=== PATIENT | female | born 1960 | race Two or more races ===

== ENCOUNTER 2020-04-05 23:46 | Emergency (ER) | payer OTHER, SELFPAY ==
[2020-04-06 00:11] VITALS: BP 132/77; PULSE 77; RESP 18; TEMP 36.8; O2SAT 99; BMI 26.4
--- NOTE | 2020-04-06 00:21 | XR_ITS ---
EXAMINATION: XR CHEST CLINICAL INFORMATION: Travel COMPARISON: 08/29/2019 TECHNIQUE: Frontal view of the chest was obtained. FINDINGS: Lung volumes are symmetric. No focal consolidation is seen. No evidence of pneumothorax, pleural effusion, or pulmonary edema. The cardiomediastinal contour is unremarkable. No acute osseous findings are seen. XR/XR chest 1V IMPRESSION: No acute cardiopulmonary findings.
--- NOTE | 2020-04-06 00:21 | ECG_ITS ---
Test Reason : CHEST PAIN Blood Pressure : / mmHG Vent. Rate : 075 BPM Atrial Rate : 075 BPM P-R Int : 156 ms QRS Dur : 066 ms QT Int : 368 ms P-R-T Axes : 020 -05 028 degrees QTc Int : 410 ms Normal sinus rhythm Minimal voltage criteria for LVH, may be normal variant Borderline ECG When compared with ECG of 30-OCT-2017 18:45, No significant change was found Referred By: Nicole Leal Electronically Signed By:ABEBA QUINONES MD
[2020-04-06 00:37] LABS: MANUAL DIFF FLAG NO
[2020-04-06 00:41] LABS: Basophils Absolute Auto 0.1 X10*3/uL (0.0-0.2); Basophils Percent Auto 0.7 % (0-2); Eosinophils Absolute Auto 0.2 X10*3/uL (0.0-0.4); Eosinophils Percent Auto 3.2 % (0-4); Hematocrit 31.6 % (37-47); Hemoglobin 10.2 g/dl (12.0-16.0); Imm Gran Abs Auto 0.25 X10*3/uL (0.00-0.03); Imm Gran Pct Auto 3.7 % (0.0-0.4); Lymphocytes Absolute Auto 2.2 X10*3/uL (1.2-4.9); Mean Corpuscular HGB Conc 32.3 g/dl (31.0-35.0); Mean Corpuscular Hemoglobin 29.7 pg (27.0-33.0); Mean Corpuscular Volume 92.1 fL (80-98); Mean Platelet Volume 8.9 fL (9.4-12.3); Monocytes Absolute Auto 0.6 X10*3/uL (0.1-1.2); Monocytes Percent Auto 9.3 % (2-11); Neutrophils Absolute Auto 3.5 X10*3/uL (2.0-8.3); Neutrophils Percent Auto 51.1 % (45-73); Platelet Count 294 X10*3/uL (160-400); Red Blood Count 3.43 X10*6/uL (4.20-5.50); Red Cell Distribution Width 12.7 % (11.0-16.0); White Blood Count 6.8 X10*3/uL (4.8-10.8)
--- NOTE | 2020-04-06 00:45 | ED_ITS ---
HPI - Chest Pain General Chief Complaint: Chest Pain Stated Complaint: chest pain Time Seen by Provider: 04/06/20 00:42 History of Present Illness HPI narrative: patient is a 59-year-old female presents today with having some chest pain. The pain is mid chest in nature. nonradiating. No fever no chills no cough no congestion or upper respiratory symptoms. Positive history of high cholesterol. No history of diabetes. No history of KS. No coughing or congestion or upper respiratory symptoms. Never had a heart attack. Positive history of reflux. The pain is been ongoing for about 5 days. It has been is constant. It is worse with lying down. Patient is already on Nexium 40 mg per day. Denies any change in diet. Is not worse with movement. It is not worse with deep breath. Does not have any leg swelling. No history of blood clots in the past. Related Data Previous Rx's Medication Instructions Recorded esomeprazole magnesium 40 mg 40 mg PO DAILY #30 cap 03/19/20 capsule,delayed release Allergies Allergy/AdvReac Type Severity Reaction Status Date / Time octopus Allergy Intermediate HIVES Verified 04/06/20 00:07 pregabalin [From Lyrica] Allergy Intermediate LETHARGY, Verified 04/06/20 00:07 dizziness dicyclomine Allergy Unknown stomach Verified 04/06/20 00:07 upset Candie-PEG Allergy Unknown rash Verified 04/06/20 00:07 nortriptyline [Pamelor] Allergy Unknown liver Verified 04/06/20 00:07 celecoxib [From Celebrex] AdvReac Intermediate PROBLEMS Verified 04/06/20 00:07 WITH THE LIVER oxycodone [From Percocet] AdvReac Mild LETHARGY Verified 04/06/20 00:07 acetaminophen [Percocet] AdvReac Unknown stomach Verified 04/06/20 00:07 upset MANDARIN ORANGES Allergy Severe LIP Uncoded 04/06/20 00:07 SWELLING, HIVES CRISPEG Allergy Intermediate RASH Uncoded 04/06/20 00:07 PARMELEX Allergy Intermediate PROBLEMS Uncoded 02/28/20 16:31 WITH THE LIVER Cassava, Spinach, Liver Meat Allergy Unknown vomiting Uncoded 02/08/20 00:00 Crestor Allergy Unknown Hives Uncoded 04/06/20 00:07 mandarin oranges Allergy Unknown liver Uncoded 12/31/19 00:00 Octopus Allergy Unknown redness, Uncoded 02/08/20 00:00 rash octopus Allergy Unknown liver Uncoded 12/31/19 00:00 Oranges, Mandarin, Tangerines Allergy Unknown rash, Uncoded 02/08/20 00:00 hives and swelling Review of Systems Review of Systems: Constitutional: No Weight loss, No Fever, No Chills, No Night Sweats, No Fatigue, No Malaise ENT/Mouth: No Hearing loss, No Ear Pain, No Nasal Congestion, No Sinus Pain, No Hoarseness, No sore throat, No Rhinorrhea, No Swallowing Difficulty Eyes: No Eye Pain, No Swelling, No Redness, No Foreign Body, No Discharge, No Vision Changes Cardiovascular: Positive chest pain, no shortness of breath no diaphoresis. Respiratory: No Cough, No Sputum, No Wheezing, No Smoke Exposure, No Dyspnea Gastrointestinal: No Nausea, No Vomiting, No Diarrhea, No Constipation, No abdominal Pain, No Hematochezia, No Melena Genitourinary: no irregular bleeding, No Dysuria, No Urinary Frequency, No Hematuria, No Urinary Incontinence, No Urgency, No Flank Pain, No Urinary Flow Changes, No Hesitancy Musculoskeletal: No joint pain, No Myalgias, No Joint Swelling Skin: No Skin Lesions, No rash Neuro: No Weakness, No Numbness, No Paresthesias, No Loss of Consciousness, No Dizziness, No Headache Psych: No Anxiety/Panic, No Depression, No SI/HI/AH/VH, No Social Issues, Heme/Lymph: No Bruising, No Bleeding,No Lymphadenopathy Endocrine: No Polyuria, No Polydipsia, No Temperature Intolerance Yes all other systems are reviewed and are negative [facility] Social History Social History Alcohol intake: never Smoked in Last 30 Days: No Use of substances other than those prescribed or required for medical reasons: No Advance Directives: No Advance Directives Information Provided: No Physical Exam Vital Signs: Vital Signs: Vital Signs Temp Pulse Resp BP Pulse Ox 04/06/20 03:18 18 04/06/20 03:14 98.3 F 77 18 128/67 99 04/06/20 01:51 98.3 F 69 18 124/71 99 04/06/20 00:11 98.3 F 77 18 132/77 99 Body Mass Index 26.4 Appearance: Alert. Oriented X3. No acute distress. Eyes: Pupils equal, round and reactive to light. ENT: Pharynx normal. Neck: Normal inspection. Neck supple. No lymph nodes noted. No crepitus CVS: Normal heart rate and rhythm. Pulses normal. Normal S1 and S2 Respiratory: No respiratory distress. Breath sounds normal. No Wheezing. No rales Abdomen: Soft and nontender. No rigidity. No distention. good BS x4 Skin: Skin warm and dry. Normal skin color. Normal skin turgor. Extremities: No lower extremity edema. Neurovascular intact to all extremities. No Lacerations. No Rash Neuro: Oriented X 3. No motor deficit. No sensory deficit. Moving all extermities. No slurred speech MDM - Chest Pain MDM Narrative Medical decision making narrative: Two sets of cardiac enzymes were negative. Patient's pain atypical. EKG appears normal. There is no evidence for ACS. Patient's heart score is less than 3. Will discharge patient home close follow- up on an outpatient basis. Differential Diagnosis Differential diagnosis: Likely fracture of rib, pneumothorax, stable angina, unstable angina pectoris, atypical chest pain, st elevation myocardial infarct ion, costochondritis and chest pain Medical Records Data Attestation: I reviewed the patient's medical records. Lab Data Attestation: I reviewed the patient's lab results. Result diagrams: 04/06/20 00:28 04/06/20 00:28 Labs: Lab Results 04/06/20 04/06/20 04/06/20 Range/Units 00:28 00:28 00:28 WBC 6.8 (4.8-10.8) X10*3/uL RBC 3.43 L (4.20-5.50) X10*6/uL Hgb 10.2 L (12.0-16.0) g/dl Hct 31.6 L (37-47) % MCV 92.1 (80-98) fL MCH 29.7 (27.0-33.0) pg MCHC 32.3 (31.0-35.0) g/dl RDW 12.7 (11.0-16.0) % Plt Count 294 (160-400) X10*3/uL MPV 8.9 L (9.4-12.3) fL Immature Gran % (Auto) 3.7 H (0.0-0.4) % Neut % (Auto) 51.1 (45-73) % Lymph % (Auto) 32.0 (20-40) % [place] % (Auto) 9.3 (2-11) % Eos % (Auto) 3.2 (0-4) % Baso % (Auto) 0.7 (0-2) % Lymph # (Auto) 2.2 (1.2-4.9) X10*3/uL [place] # (Auto) 0.6 (0.1-1.2) X10*3/uL Eos # (Auto) 0.2 (0.0-0.4) X10*3/uL Baso # (Auto) 0.1 (0.0-0.2) X10*3/uL Abs Immat Gran (auto) 0.25 H (0.00-0.03) X10*3/uL Absolute Neuts (auto) 3.5 (2.0-8.3) X10*3/uL Absolute Nucleated RBC 0.000 (0.0-0.012) X10*3/uL Nucleated RBC % (auto) 0.0 (0.0-0.2) /100WBC Hold Blue Top SEE NOTE Sodium 140 (135-145) mmol/L Potassium 4.0 (3.3-5.1) mmol/l Chloride 106 (96-108) mmol/L Carbon Dioxide 25 (22-29) mmol/L Anion Gap 13 (12-20) BUN 18 H (9-16) mg/dL Creatinine 0.64 (0.5-1.4) mg/dL Estim Creat Clear Calc 89.6 Estimated GFR > 60 Random Glucose 121 H (60-115) mg/dL Calcium 8.6 (8.4-10.2) mg/dL Total Bilirubin 0.2 (0.0-1.0) mg/dL Direct Bilirubin < 0.2 (0.0-0.5) mg/dL AST 29 (5-31) U/L ALT 23 (0-31) U/L Alkaline Phosphatase 118 H (39-117) U/L Troponin I High Sens (<3.5-17.0) ng/L Total Protein 6.6 (6.5-8.0) g/dL Albumin 4.1 (3.5-5.0) g/dL Lipase 19 (8-78) U/L Urine Color Urine Appearance Urine pH (5.0-8.0) Ur Specific [place] (1.005-1.025) Urine Protein (NEG-TRACE) MG/DL Urine Glucose (UA) (NEG) MG/DL Urine Ketones (NEG) MG/DL Urine Blood (NEG) Urine Nitrite (NEG) Ur Leukocyte Esterase (NEG) Urine RBC (0) /HPF Urine WBC (0-4) /HPF Ur Squamous Epith Cells /LPF Urine Bacteria /LPF 04/06/20 04/06/20 04/06/20 Range/Units 00:28 01:09 03:08 WBC (4.8-10.8) X10*3/uL RBC (4.20-5.50) X10*6/uL Hgb (12.0-16.0) g/dl Hct (37-47) % MCV (80-98) fL MCH (27.0-33.0) pg MCHC (31.0-35.0) g/dl RDW (11.0-16.0) % Plt Count (160-400) X10*3/uL MPV (9.4-12.3) fL Immature Gran % (Auto) (0.0-0.4) % Neut % (Auto) (45-73) % Lymph % (Auto) (20-40) % [place] % (Auto) (2-11) % Eos % (Auto) (0-4) % Baso % (Auto) (0-2) % Lymph # (Auto) (1.2-4.9) X10*3/uL [place] # (Auto) (0.1-1.2) X10*3/uL Eos # (Auto) (0.0-0.4) X10*3/uL Baso # (Auto) (0.0-0.2) X10*3/uL Abs Immat Gran (auto) (0.00-0.03) X10*3/uL Absolute Neuts (auto) (2.0-8.3) X10*3/uL Absolute Nucleated RBC (0.0-0.012) X10*3/uL Nucleated RBC % (auto) (0.0-0.2) /100WBC Hold Blue Top Sodium (135-145) mmol/L Potassium (3.3-5.1) mmol/l Chloride (96-108) mmol/L Carbon Dioxide (22-29) mmol/L Anion Gap (12-20) BUN (9-16) mg/dL Creatinine (0.5-1.4) mg/dL Estim Creat Clear Calc Estimated GFR Random Glucose (60-115) mg/dL Calcium (8.4-10.2) mg/dL Total Bilirubin (0.0-1.0) mg/dL Direct Bilirubin (0.0-0.5) mg/dL AST (5-31) U/L ALT (0-31) U/L Alkaline Phosphatase (39-117) U/L Troponin I High Sens < 3.5 < 3.5 (<3.5-17.0) ng/L Total Protein (6.5-8.0) g/dL Albumin (3.5-5.0) g/dL Lipase (8-78) U/L Urine Color YELLOW Urine Appearance CLEAR Urine pH 7.0 (5.0-8.0) Ur Specific [place] 1.010 (1.005-1.025) Urine Protein NEG (NEG-TRACE) MG/DL Urine Glucose (UA) NEG (NEG) MG/DL Urine Ketones NEG (NEG) MG/DL Urine Blood TRACE (NEG) Urine Nitrite NEG (NEG) Ur Leukocyte Esterase TRACE H (NEG) Urine RBC 1-4 (0) /HPF Urine WBC 1-4 (0-4) /HPF Ur Squamous Epith Cells 1+ /LPF Urine Bacteria 1+ /LPF ECG Data ECG #1: Interpretation: Sinus heart rate of 75 p.r. QRS QT within normal limits is no acute ST segment elevation noted. Discharge Plan Discharge Clinical Impression: Chest pain Patient Disposition: Home, Self-Care Instructions: Chest Pain (ED) Prescriptions: No Action esomeprazole magnesium 40 mg capsule,delayed release(DR/EC) 40 mg PO DAILY Qty: 30 RF: 3 Referrals: Julia Green MD [Primary Care Provider] - 2 days
[2020-04-06 01:13] LABS: Anion Gap 13 (12-20); Blood Urea Nitrogen 18 mg/dL (9-16); Calcium 8.6 mg/dL (8.4-10.2); Carbon Dioxide 25 mmol/L (22-29); Chloride 106 mmol/L (96-108); Creatinine Clr Calc Pharmacy 89.6; Estimated Glomerular Filt Rate > 60; Glucose Random 121 mg/dL (60-115); Sodium 140 mmol/L (135-145)
[2020-04-06 01:18] LABS: Troponin-I High Sensitivity < 3.5 ng/L (<3.5-17.0)
[2020-04-06 01:20] LABS: Glucose Urine UA NEG (NEG); Leukocyte Esterase Urine TRACE (NEG); Nitrite Urine NEG (NEG); Urine Blood TRACE (NEG); Urine Ketones NEG (NEG); Urine Protein NEG (NEG-TRACE)
[2020-04-06 01:21] LABS: Appearance Urine CLEAR; Color Urine YELLOW
[2020-04-06 01:28] LABS: Bacteria Urine 1+ /LPF; Squamous Epithelial Cell Urine 1+ /LPF
[2020-04-06 01:46] LABS: Alanine Aminotransferase 23 U/L (0-31); Albumin Level 4.1 g/dL (3.5-5.0); Alkaline Phosphatase 118 U/L (39-117); Aspartate Amino Transferase 29 U/L (5-31); Bilirubin Direct < 0.2 mg/dL (0.0-0.5); Bilirubin Total 0.2 mg/dL (0.0-1.0); Lipase 19 U/L (8-78); Total Protein 6.6 g/dL (6.5-8.0)
[2020-04-06 01:51] VITALS: BP 124/71; PULSE 69; RESP 18; TEMP 36.8; O2SAT 99
--- NOTE | 2020-04-06 01:53 | PC.NURSE ---
plan for repeat troponin in approx 2 hours. pt agreeable. requesting ct scan of back
[2020-04-06 03:14] VITALS: BP 128/67; PULSE 77; RESP 18; TEMP 36.8; O2SAT 99
--- NOTE | 2020-04-06 03:14 | PC.NURSE ---
repeat troponin sent. pt states her back hurts bad, 03/22. dr vieira aware
[2020-04-06 03:18] VITALS: RESP 18
[2020-04-06] MEDS: HYDROmorphone HCl 0.5 MG/0.5 ML SYRINGE IVPUSH (03:18)
[2020-04-06 03:52] LABS: Troponin-I High Sensitivity < 3.5 ng/L (<3.5-17.0)
--- NOTE | 2020-04-06 04:06 | PC.NURSE ---
pt sleeping after med administration, second troponin negative. dr vieira aware plan to send home
--- NOTE | 2020-04-06 04:15 | PC.NURSE ---
pt iv d.c at this time. pending dispo
== END 2020-04-06 04:34 | disposition home or self-care (01) ==
PROVIDERS: Emergency Provider Emergency Medicine Emergency Medical Services; PCP Internal Medicine
DX: R07.9 Chest pain, unspecified (principal); Z79.899 Other long term (current) drug therapy
CPT/HCPCS: 36415; 71045; 80048; 80076; 81001; 83690; 84484; 85025; 87086; 93005; 96374; 99284; J1170

== ENCOUNTER 2020-04-07 12:26 | Outpatient (REF) | payer OTHER, SELFPAY ==
--- NOTE | 2020-04-07 12:28 | XR_ITS ---
EXAMINATION: LEFT SHOULDER AND SCAPULA X-RAY CLINICAL INFORMATION: Strain COMPARISON: None TECHNIQUE: 2 views of the left shoulder and one view of the left scapula FINDINGS: Bone alignment is normal. No fracture or dislocation is seen. Joint spaces are normal. Soft tissues are normal. XR/XR shoulder LT 1V IMPRESSION: Unremarkable exam.
--- NOTE | 2020-04-07 12:39 | XR_ITS ---
EXAMINATION: LEFT SHOULDER AND SCAPULA X-RAY CLINICAL INFORMATION: Strain COMPARISON: None TECHNIQUE: 2 views of the left shoulder and one view of the left scapula FINDINGS: Bone alignment is normal. No fracture or dislocation is seen. Joint spaces are normal. Soft tissues are normal. XR/XR scapula LT IMPRESSION: Unremarkable exam.
== END 2020-04-07 12:27 | disposition home or self-care (01) ==
LOC: HO.XRAY 12:26
PROVIDERS: PCP Internal Medicine; Visit Provider Physician Assistant
DX: S46.812D Strain of other muscles, fascia and tendons at shoulder and upper arm level, left arm, subsequent encounter (principal)
CPT/HCPCS: 73010; 73020

== ENCOUNTER → 2020-05-12 08:58 | Outpatient (REF) | payer OTHER, SELFPAY ==
[2020-05-12 10:32] LABS: Eos%MD 2.7 %; Hematocrit 35.4 % (37-47); Hemoglobin 11.6 g/dl (12.0-16.0); IG%MD 5.1 %; Mean Corpuscular HGB Conc 32.8 g/dl (31.0-35.0); Mean Corpuscular Hemoglobin 30.1 pg (27.0-33.0); Mean Corpuscular Volume 91.9 fL (80-98); Mean Platelet Volume 9.3 fL (9.4-12.3); Mono%MD 10.5 %; Neut%MD 45.7 %; Platelet Count 366 X10*3/uL (160-400); Red Blood Count 3.85 X10*6/uL (4.20-5.50); Red Cell Distribution Width 12.7 % (11.0-16.0); White Blood Count 5.8 X10*3/uL (4.8-10.8)
[2020-05-12 11:05] LABS: Iron 70 mcg/dL (30-160); Percent Iron Saturation 21 % (15-50); Total Iron Binding Capacity 326 mcg/dL (228-428); Unsaturated Iron Binding 256 ug/dL
[2020-05-12 11:14] LABS: Band Neutrophils Percent 2 % (3-5); Basophils Abs Manual 0.1 X10*3/uL (0.0-0.3); Basophils Percent Manual 1 % (0-1); Eosinophils Absolute Manual 0.2 X10*3/UL (0.0-0.8); Eosinophils Percent Manual 3 % (0-4); Lymphocytes Absolute Manual 1.9 X10*3/uL (0.6-4.8); Lymphocytes Percent Manual 33 % (20-40); Metamyelocytes Absolute 0.2 X10*3/uL; Metamyelocytes Percent 3 %; Monocytes Absolute Manual 0.5 X10*3/uL (0.0-1.2); Monocytes Percent Manual 9 % (2-11); Neutrophils Percent Manual 49 % (45-73)
[2020-05-12 11:16] LABS: Platelet Estimate NORMAL (NORMAL); Platelet Morphology Comment NORMAL; RBC Morphology NORMAL
== END ==
LOC: HO.SL 08:58
PROVIDERS: PCP Internal Medicine; Visit Provider Internal Medicine
DX: D50.9 Iron deficiency anemia, unspecified (principal); M54.14 Radiculopathy, thoracic region; G47.33 Obstructive sleep apnea (adult) (pediatric)
CPT/HCPCS: 36415; 83540; 85007; 85027; 95806

== ENCOUNTER → 2020-06-30 13:51 | Outpatient (BNV) | payer OTHER, SELFPAY | PROVIDERS: PCP Internal Medicine; Referring Provider Internal Medicine; Visit Provider Internal Medicine Medical Oncology | DX: D64.9 Anemia, unspecified (principal) | CPT/HCPCS: 99202; 99204; 99213; 99214 ==

== ENCOUNTER → 2020-07-03 13:50 | Outpatient (BNVA) | payer OTHER, SELFPAY | PROVIDERS: PCP Internal Medicine; Visit Provider Internal Medicine | DX: E66.9 Obesity, unspecified (principal); G47.33 Obstructive sleep apnea (adult) (pediatric) | CPT/HCPCS: 99202 ==

== ENCOUNTER → 2020-08-28 13:02 | Outpatient (BNVA) | payer OTHER, SELFPAY | PROVIDERS: PCP Internal Medicine; Visit Provider Nurse Practitioner ==

== ENCOUNTER 2020-08-29 13:25 | Outpatient (REF) | payer OTHER, SELFPAY | END 2020-08-29 13:26 | disposition home or self-care (01) | LOC: HO.HAP 13:25 | PROVIDERS: PCP Internal Medicine; Visit Provider Internal Medicine | DX: Z46.1 Encounter for fitting and adjustment of hearing aid (principal) | CPT/HCPCS: V5266 ==

== ENCOUNTER 2020-09-01 10:00 | Outpatient (REF) | payer OTHER, SELFPAY | END 2020-09-01 10:01 | disposition home or self-care (01) | LOC: HO.LNP 10:00 | PROVIDERS: Visit Provider Nurse Practitioner | DX: Z13.89 Encounter for screening for other disorder (principal) ==

== ENCOUNTER 2020-09-02 08:26 | Outpatient (REF) | payer OTHER, SELFPAY ==
--- NOTE | ~2020-09-02 | US_ITS ---
EXAMINATION: US ABDOMEN COMPLETE CLINICAL INFORMATION: Right upper quadrant pain. COMPARISON: X-ray KUB 07/05/2019. CT abdomen pelvis 06/13/2019. Ultrasound renals only 05/08/2019 and 05/01/2018. TECHNIQUE: Real-time imaging of the abdominal viscera. FINDINGS: PANCREAS: Normal. ABDOMINAL AORTA: The proximal, mid, and distal segments are normal in caliber. INFERIOR VENA CAVA: Visualized portions are normal. LIVER: Liver echotexture is increased. The liver is normal in size. The liver contour is normal. No focal hepatic lesion. There is no intrahepatic biliary duct dilatation seen. GALLBLADDER: Surgically absent. COMMON BILE DUCT: Normal in caliber measuring 0.7 cm in diameter. RIGHT KIDNEY: Normal No hydronephrosis. No renal calculi or focal parenchymal lesions. The kidney measures 10.5 cm in maximum dimension. LEFT KIDNEY: There is a 2.9 x 2.6 x 1.8 cm peripelvic complex cyst in the mid to lower pole. This does not appear appreciably changed. No hydronephrosis or renal calculi. The kidney measures 10.2 cm in maximum dimension. SPLEEN: Normal. The spleen measures 8.8 cm in maximum dimension. FREE FLUID: None. US/US abdomen complete IMPRESSION: Echogenic liver probably representing fatty infiltration. Stable appearance to the complex left renal cyst.
== END 2020-09-02 08:27 | disposition home or self-care (01) ==
LOC: HO.US 08:26
PROVIDERS: Visit Provider Nurse Practitioner
DX: R10.11 Right upper quadrant pain (principal)
CPT/HCPCS: 76700; 87338

== ENCOUNTER 2020-09-22 14:42 | Outpatient (REF) | payer OTHER, SELFPAY ==
--- NOTE | ~2020-09-22 | MM_ITS ---
EXAMINATION: MM SCREENING DIGITAL BREAST TOMOSYNTHESIS, BILATERAL CLINICAL INFORMATION: Screening. Asymptomatic. The lifetime risk of breast cancer based on the Tyrer-Cuzick Model is 13%. COMPARISON: Mammography: 02/21/2019, 01/23/2018, 05/03/2016, 04/04/2014 TECHNIQUE: Digital breast tomosynthesis is performed in both the craniocaudal and mediolateral oblique views along with computer-aided detection (CAD). Synthesized 2D images are generated from the tomosynthesis. FINDINGS: There are scattered areas of fibroglandular density (ACR BI-RADS breast composition Category b). Parenchymal pattern is similar to prior exams. There is stable chronic asymmetry central and upper left breast similar to prior exams. Biopsy clip marker again seen left breast mid upper outer quadrant. There is no developing density. No abnormal calcifications. The axilla and skin contours are unremarkable. MM/MM tomosynthesis screening BI IMPRESSION: No mammographic evidence of malignancy. ASSESSMENT: BI-RADS 2: Benign RECOMMENDATION: Routine annual mammography screening. This patient's information was entered into a reminder system with a target due date for their next mammogram.
== END 2020-09-22 14:43 | disposition home or self-care (01) ==
LOC: HO.MAMMO 14:42
PROVIDERS: Visit Provider Internal Medicine
DX: Z12.31 Encounter for screening mammogram for malignant neoplasm of breast (principal)
CPT/HCPCS: 77063; 77067

== ENCOUNTER → 2020-09-24 14:27 | Outpatient (BNVA) | payer OTHER, SELFPAY | PROVIDERS: PCP Internal Medicine; Visit Provider Internal Medicine | DX: G47.33 Obstructive sleep apnea (adult) (pediatric) (principal); M54.14 Radiculopathy, thoracic region; Z79.899 Other long term (current) drug therapy | CPT/HCPCS: 99212 ==

== ENCOUNTER → 2020-10-07 09:22 | Outpatient (BNVA) | payer OTHER, SELFPAY | PROVIDERS: Visit Provider Nurse Practitioner ==

== ENCOUNTER 2020-10-14 13:41 | Outpatient (REF) | payer OTHER, SELFPAY ==
[2020-10-14 14:08] LABS: COVID-19 Test Negative (Negative); IDNOW Serial# 55D5AD1C
== END 2020-10-14 13:42 | disposition home or self-care (01) ==
LOC: HO.LAB 13:41
PROVIDERS: Visit Provider Internal Medicine
DX: Z20.822 Contact with and (suspected) exposure to COVID-19 (principal)
CPT/HCPCS: 36415; 87635; C9803

== ENCOUNTER 2020-11-14 14:05 | Outpatient (REF) | payer OTHER, SELFPAY ==
[2020-11-14 17:32] LABS: TSH reflex Free T4 1.19 uIU/mL (0.32-4.0)
[2020-11-21 09:27] LABS: HPV mRNA E6/E7 rflx Not Detected (Not Detected)
== END 2020-11-14 14:06 | disposition home or self-care (01) ==
LOC: HO.LAB 14:05
PROVIDERS: PCP Internal Medicine; Visit Provider Obstetrics & Gynecology
DX: Z01.419 Encounter for gynecological examination (general) (routine) without abnormal findings (principal); Z11.51 Encounter for screening for human papillomavirus (HPV); R63.5 Abnormal weight gain
CPT/HCPCS: 36415; 84443; 87624; 88142

== ENCOUNTER 2020-11-24 14:00 | Outpatient (REF) | payer OTHER, SELFPAY | END 2020-11-24 14:01 | disposition home or self-care (01) | LOC: HO.HAP 14:00 | PROVIDERS: Visit Provider Internal Medicine | DX: Z46.1 Encounter for fitting and adjustment of hearing aid (principal); H90.3 Sensorineural hearing loss, bilateral; R10.11 Right upper quadrant pain; R11.0 Nausea; K76.0 Fatty (change of) liver, not elsewhere classified; K59.00 Constipation, unspecified; M79.7 Fibromyalgia; D50.9 Iron deficiency anemia, unspecified; E78.5 Hyperlipidemia, unspecified; G47.33 Obstructive sleep apnea (adult) (pediatric); Z88.8 Allergy status to other drugs, medicaments and biological substances; Z91.013 Allergy to seafood; Z12.11 Encounter for screening for malignant neoplasm of colon | CPT/HCPCS: 99212; V5266 ==

== ENCOUNTER 2020-11-27 09:43 | Outpatient (REF) | payer OTHER, SELFPAY ==
[2020-11-27 11:14] LABS: Cholesterol 208 mg/dL; HDL Cholesterol 49 mg/dL; LDL Cholesterol Calculated 138 mg/dl; Triglycerides 108 mg/dL
== END 2020-11-27 09:44 | disposition home or self-care (01) ==
LOC: HO.LAB 09:43
PROVIDERS: PCP Internal Medicine; Visit Provider Physician Assistant
DX: K76.0 Fatty (change of) liver, not elsewhere classified (principal)
CPT/HCPCS: 36415; 80061

== ENCOUNTER 2020-12-12 08:18 | Outpatient (REF) | payer OTHER, SELFPAY | END 2020-12-12 08:19 | disposition home or self-care (01) | LOC: HO.LAB 08:18 | PROVIDERS: PCP Internal Medicine; Visit Provider Internal Medicine | DX: Z20.822 Contact with and (suspected) exposure to COVID-19 (principal) | CPT/HCPCS: C9803; U0003; U0005 ==

== ENCOUNTER 2021-01-08 12:53 | Outpatient (REF) | payer OTHER, SELFPAY ==
[2021-01-08 14:45] LABS: Hemoglobin 12.5 g/dl (12.0-16.0); Mean Corpuscular HGB Conc 32.1 g/dl (31.0-35.0); Mean Corpuscular Volume 93.5 fL (80-98); Mean Platelet Volume 8.9 fL (9.4-12.3); Platelet Count 344 X10*3/uL (160-400); Red Blood Count 4.17 X10*6/uL (4.20-5.50); Red Cell Distribution Width 12.6 % (11.0-16.0); White Blood Count 6.4 X10*3/uL (4.8-10.8)
[2021-01-08 15:03] LABS: Alanine Aminotransferase 27 U/L (0-31); Albumin Level 4.2 g/dL (3.5-5.0); Alkaline Phosphatase 121 U/L (39-117); Anion Gap 11 (12-20); Aspartate Amino Transferase 27 U/L (5-31); Bilirubin Total 0.4 mg/dL (0.0-1.0); Blood Urea Nitrogen 15 mg/dL (9-16); Calcium 9.7 mg/dL (8.4-10.2); Carbon Dioxide 31 mmol/L (22-29); Chloride 103 mmol/L (96-108); Estimated Glomerular Filt Rate > 60; Glucose Random 98 mg/dL (60-115); Potassium 4.6 mmol/L (3.3-5.1); Sodium 140 mmol/L (135-145); Total Protein 7.3 g/dL (6.5-8.0)
[2021-01-08 15:18] LABS: Atypical Lymph Absolute Manual 0.2 x10*3/uL; Atypical Lymphs Percent Manual 3 % (0-6); Band Neutrophils Percent 1 % (3-5); Basophils Abs Manual 0.1 X10*3/uL (0.0-0.3); Basophils Percent Manual 1 % (0-1); Eosinophils Absolute Manual 0.1 X10*3/UL (0.0-0.8); Eosinophils Percent Manual 1 % (0-4); Lymphocytes Absolute Manual 2.1 X10*3/uL (0.6-4.8); Lymphocytes Percent Manual 33 % (20-40); Monocytes Absolute Manual 0.4 X10*3/uL (0.0-1.2); Monocytes Percent Manual 6 % (2-11); Neutrophils Absolute Manual 3.6 X10*3/uL (2.2-7.9); Neutrophils Percent Manual 55 % (45-73); Platelet Estimate NORMAL (NORMAL); Platelet Morphology Comment NORMAL; RBC Morphology NORMAL
[2021-01-08 15:24] LABS: Ferritin 178 ng/mL (10-250)
[2021-01-10 14:36] LABS: Anti Nuclear Antibody Screen NEGATIVE (NEGATIVE)
[2021-01-12 11:50] LABS: Alpha Fetoprotein 3.7 ng/mL
[2021-01-13 11:11] LABS: Mitochondrial Antibodies NEGATIVE (NEGATIVE)
[2021-01-14 11:40] LABS: Smooth Muscle Antibody <20 U (<20)
== END 2021-01-08 12:54 | disposition home or self-care (01) ==
LOC: HO.LAB 12:53
PROVIDERS: Referring Provider Internal Medicine; Visit Provider Nurse Practitioner
DX: R10.11 Right upper quadrant pain (principal); R11.0 Nausea; A04.8 Other specified bacterial intestinal infections; K21.9 Gastro-esophageal reflux disease without esophagitis; K59.04 Chronic idiopathic constipation; K76.0 Fatty (change of) liver, not elsewhere classified
CPT/HCPCS: 36415; 80053; 82105; 82728; 85007; 85027; 86038; 86039; 86255; 86256; 99212

== ENCOUNTER → 2021-01-21 14:23 | Outpatient (BNVA) | payer OTHER, SELFPAY | PROVIDERS: PCP Internal Medicine; Visit Provider Internal Medicine | DX: G47.33 Obstructive sleep apnea (adult) (pediatric) (principal); R06.00 Dyspnea, unspecified; E66.9 Obesity, unspecified | CPT/HCPCS: 99212 ==

== ENCOUNTER 2021-01-27 08:35 | Day surgery (SDC) | payer OTHER, SELFPAY ==
[2021-01-20 09:56] VITALS: BMI 29.8
--- NOTE | 2021-01-26 10:09 | HO.ANESPROP2 ---
Documented by User: Grace Garcia NP 01/26/21 10:10 HPI - Anesthesia Eval Consult details Narrative: 60yo F for Upper Endoscopy PMFSH Active Problems Active Problems: All Active Problems (Updated 01/21/21 @ 16:18 by Sophia Zaidi MD) Dyspnea on exertion (Acute) Elevated AST (SGOT) (Acute) Hepatic steatosis (Acute) Nausea (Acute) RUQ pain (Acute) H. pylori infection (Acute) UTI (urinary tract infection) (Acute) Otitis externa (Acute) Lorene infection of genital region (Acute) Otitis media (Acute) Obesity (BMI 30-39.9) (Acute) GERD (gastroesophageal reflux disease) (Acute) Trapezius muscle strain (Acute) Left shoulder pain (Acute) Thoracic radiculitis (Acute) Chronic idiopathic constipation (Acute) GRAYSON (obstructive sleep apnea) (Acute) Iron deficiency anemia (Acute) Normocytic anemia (Acute) Past Medical History Medical History Arthritis Carpal tunnel syndrome Dyspnea on exertion Fibromyalgia Hearing loss Hyperlipidemia Iron deficiency anemia Neuropathy Normocytic anemia Obesity (BMI 30-39.9) GRAYSON (obstructive sleep apnea) Tendonitis Family History Family History Father Heart disease Diabetes Hypertension Mother Diabetes Hypertension Arthritis Fibromyalgia Osteoporosis Surgical History Surgical History Family history of lipoma History of History of carpal tunnel repair History of laparoscopic cholecystectomy History of left breast biopsy History of temporal artery biopsy History of varicose vein stripping Social History Social History Household Members: Spouse Alcohol intake: former Patient Tobacco Use Status: Never used Tobacco Use of substances other than those prescribed or required for medical reasons: No Are you DNR?: No Advance Directives: No Advance Directives Information Provided: Yes 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al status: disabled Meds Allergies Allergy/AdvReac Type Severity Reaction Status Date / Time Candie-PEG Allergy Intermediate rash Verified 01/27/21 09:10 octopus Allergy Intermediate HIVES Verified 01/27/21 09:10 pregabalin [From Lyrica] Allergy Intermediate LETHARGY, Verified 01/27/21 09:10 dizziness celecoxib [From Celebrex] AdvReac Intermediate PROBLEMS Verified 01/27/21 09:10 WITH THE LIVER dicyclomine AdvReac Mild stomach Verified 01/27/21 09:10 upset oxycodone [From Percocet] AdvReac Mild LETHARGY Verified 01/27/21 09:10 MANDARIN ORANGES Allergy Severe LIP Uncoded 08/28/20 13:03 SWELLING, HIVES PARMELEX Allergy Intermediate PROBLEMS Uncoded 08/28/20 13:03 WITH THE LIVER Home Medications Medication Instructions Recorded Confirmed Last Taken Type aspirin 81 mg tablet,delayed 81 mg PO DAILY 04/07/20 06/30/20 01/20/21 History release cranberry extract 500 mg capsule 500 mg PO DAILY 04/07/20 06/30/20 Unknown History acetaminophen 500 mg tablet 1,000 mg PO BID PRN tab 01/08/21 Unknown History Exam Exam Date and Time: January 26, 2021 1009 Height,Weight and Vital Signs: Height 5 ft 1 in Weight 71.668 kg Pertinent Lab Results Pertinent Lab Results: Laboratory Tests 01/08/21 01/08/21 14:19 14:19 WBC 6.4 Hgb 12.5 Hct 39.0 Plt Count 344 Sodium 140 Potassium 4.6 Chloride 103 Carbon Dioxide 31 H BUN 15 Creatinine 0.65 Narrative Narrative: EKG 03/2020 Vent. Rate : 075 BPM ? ? Atrial Rate : 075 BPM ?? P-R Int : 156 ms? QRS Dur : 066 ms ? ? QT Int : 368 ms ? ? ? P-R-T Axes : 020 -05 028 degrees ?? QTc Int : 410 ms ? Normal sinus rhythm Minimal voltage criteria for LVH, may be normal variant Borderline ECG When compared with ECG of 30-OCT-2017 18:45, No significant change was found Assessment and Plan Assessment Anesthesia Assessment: Chart Reviewed Documented by User: Nevin Antonio MD 01/27/21 09:11 [facility] Past Medical History Medical History Arthritis Carpal tunnel syndrome Dyspnea on exertion Fibromyalgia Hearing loss Hyperlipidemia Iron deficiency anemia Neuropathy Normocytic anemia Obesity (BMI 30-39.9) GRAYSON (obstructive sleep apnea) Tendonitis Functional capacity: independent ambulation Patient : No Family History Family History Father Heart disease Diabetes Hypertension Mother Diabetes Hypertension Arthritis Fibromyalgia Osteoporosis Family history of problems with anesthesia: No Surgical History Surgical History Family history of lipoma History of History of carpal tunnel repair History of laparoscopic cholecystectomy History of left breast biopsy History of temporal artery biopsy History of varicose vein stripping Social History Social History Household Members: Spouse Alcohol intake: former Patient Tobacco Use Status: Never used Tobacco Use of substances other than those prescribed or required for medical reasons: No Are you DNR?: No Advance Directives: No Advance Directives Information Provided: Yes 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al status: disabled Meds Allergies Allergy/AdvReac Type Severity Reaction Status Date / Time Candie-PEG Allergy Intermediate rash Verified 01/27/21 09:10 octopus Allergy Intermediate HIVES Verified 01/27/21 09:10 pregabalin [From Lyrica] Allergy Intermediate LETHARGY, Verified 01/27/21 09:10 dizziness celecoxib [From Celebrex] AdvReac Intermediate PROBLEMS Verified 01/27/21 09:10 WITH THE LIVER dicyclomine AdvReac Mild stomach Verified 01/27/21 09:10 upset oxycodone [From Percocet] AdvReac Mild LETHARGY Verified 01/27/21 09:10 MANDARIN ORANGES Allergy Severe LIP Uncoded 08/28/20 13:03 SWELLING, HIVES PARMELEX Allergy Intermediate PROBLEMS Uncoded 08/28/20 13:03 WITH THE LIVER Home Medications Medication Instructions Recorded Confirmed Last Taken Type aspirin 81 mg tablet,delayed 81 mg PO DAILY 04/07/20 06/30/20 01/20/21 History release cranberry extract 500 mg capsule 500 mg PO DAILY 04/07/20 06/30/20 Unknown History acetaminophen 500 mg tablet 1,000 mg PO BID PRN tab 01/08/21 Unknown History Exam Airway Mallampati Class: III TM Dist: >3cm Neck ROM: Full Heart: RRR Lungs: CTA Assessment and Plan Final Anesthetic Review Family History of Problems with Anesthesia: No
--- NOTE | 2021-01-27 09:00 | PC.NURSE ---
pt POC [id number]. pt denies any symptoms of hyperglycemia. dtr at bedside. will continue to monitor and recheck poc in 30min.
[2021-01-27 09:11] VITALS: BP 124/72; PULSE 78; RESP 16; TEMP 36.2; O2SAT 100
[2021-01-27] MEDS: Lactated Ringers 1,000 ML 100 ML IVCONT (09:15)
--- NOTE | 2021-01-27 09:28 | MHC.SHP ---
Pre-Procedural Eval Section A Date of Service: 01/27/21 The patient is an INPATIENT: No Changes since office visit: Yes Patient answered all questions; No Cold of Flu in the past 2 weeks, No New Medical Problems and No Changes in Medication The History & Physical has been completed within 30 days and I have reviewed it.: Yes Section B Chief Complaint: Nausea, GERD, RUQ pain Allergies: Allergies Allergy/AdvReac Type Severity Reaction Status Date / Time Candie-PEG Allergy Intermediate rash Verified 01/27/21 09:10 octopus Allergy Intermediate HIVES Verified 01/27/21 09:10 pregabalin [From Lyrica] Allergy Intermediate LETHARGY, Verified 01/27/21 09:10 dizziness celecoxib [From Celebrex] AdvReac Intermediate PROBLEMS Verified 01/27/21 09:10 WITH THE LIVER dicyclomine AdvReac Mild stomach Verified 01/27/21 09:10 upset oxycodone [From Percocet] AdvReac Mild LETHARGY Verified 01/27/21 09:10 MANDARIN ORANGES Allergy Severe LIP Uncoded 08/28/20 13:03 SWELLING, HIVES PARMELEX Allergy Intermediate PROBLEMS Uncoded 08/28/20 13:03 WITH THE LIVER Exam Surgical H&P Exam: Normal: Heart, Normal: Lungs, Normal: Extremities and Normal: Abdomen Plan Diagnosis/Plan: Unchanged I have reviewed the history and physical and performed a pertinent physical examination on my patient. No changes have occurred unless specified.
--- NOTE | 2021-01-27 09:34 | P.BOP_ITS ---
Brief Operative Note Date of Service: 01/27/21 Pre-op diagnosis: GERD, RUQ pain, nausea Post-op diagnosis: other (GERD, gastritis, gastric polyps, suspected gastroparesis) Procedure: FLEXIBLE TRANSORAL UPPER GASTROINTESTINAL ENDOSCOPY WITH BIOPSIES Consent: Indications for the procedure and potential complications of bleeding, perforation, reaction to medications and missed diagnosis were discussed with the patient and informed consent was obtained. Instrument: Olympus GIF H 190 mid size upper endoscope Monitoring: Vital signs and clinical assessment, continuous EKG monitoring, Pulse oximetry, Carbon Dioxide monitoring and blood pressure monitoring were done throughout the procedure. Procedure: The patient was placed in the left lateral decubitis position and pre-procedure medications were administered and a bite block was placed. The endoscope was inserted into the mouth and advanced under direct vision to the third part of duodenum. A careful inspection was made as the upper endoscope was withdrawn including a retroflexed examination of the proximal stomach; Findings and interventions are described below. Findings: Larynx: Normal Esophagus: GE junction at 36 cms. Irregular Z line - biopsied to check for Wilson Stomach: A 7-8 mm benign-appearing polyp cardia - biopsied. Moderate amount of retained food in the stomach obscuring the fundus. Mild gastric erythema. Biopsies were obtained. Grade 2 flap valve on retroflexed examination of the cardia. Duodenum: Normal bulb and descending duodenum. Biopsies were obtained from 3rd part of the duodenum to check for celiac sprue Intervention: Biopsies as noted above Impression and Post Procedure Diagnosis: Endoscopy Findings: ESOPHAGUS: Irregular Z line - biopsied to check for Wilson STOMACH: A 7-8 mm benign-appearing polyp cardia - biopsied. Moderate amount of retained food in the stomach obscuring the fundus. Mild gastric erythema. Biopsies were obtained. DUODENUM: Normal - biopsied to check for celiac sprue Plan: Await pathology results Patient has an appointment on 02/19/21 in the [facility] with Shraddha Melvin NP . Consider further evaluation with a Gastric Emptying Study to rule out gastroparesis Above findings were reviewed with the patient and GERD and Gastric polyps handouts were given in the discharge area Surgeon: Cordell Jacobsen MD Anesthesia: MAC (Dr Galicia) Was an Senior Accountant Cpa used for this Procedure?: Yes Senior Accountant Cpa: Omayra Pak Estimated blood loss (mL): 0 Pathology: other (A. SMALL BOWEL R/O CELIACS B. GASTRIC ANTRUM R/O H. PYLORI C. GASTRIC POLYP D. DISTAL ESOPHAGUS R/O BARRETTS) Condition: stable Disposition: PACU
[2021-01-27 10:01] VITALS: BP 91/68; PULSE 86; RESP 16; TEMP 36.1; O2SAT 97
[2021-01-27 10:16] VITALS: BP 108/63; PULSE 82; RESP 18; TEMP 36.1; O2SAT 100
--- NOTE | 2021-01-27 11:05 | HO.POSTANES ---
Post Anesthesia Evaluation Post Anesthesia Evaluation Vital Signs: Vital Signs Temp Pulse Resp BP Pulse Ox 01/27/21 10:16 97 F 82 18 108/63 100 01/27/21 10:01 97 F 86 16 91/68 97 01/27/21 09:11 97.2 F 78 16 124/72 100 Anesthesia: Monitored Mental Status: Awake Pain Control: Satisfactory Nausea/Vomiting: None Hydration: Adequate Anesthesia-Related Issues: No Anes. Related Issues
--- NOTE | 2021-01-27 19:07 | W.PM.OPN ---
Operative Note Operative Note Date of Service: 01/27/21 Narrative: Pre-op diagnosis:?GERD, RUQ pain, nausea Post-op diagnosis:?other (GERD, gastritis, gastric polyps, suspected gastroparesis) Procedure:? FLEXIBLE TRANSORAL UPPER GASTROINTESTINAL ENDOSCOPY WITH BIOPSIES Consent:?Indications for the procedure and potential complications of bleeding, perforation, reaction to medications and missed diagnosis were discussed with the patient and informed consent was obtained. Instrument:?Olympus GIF H 190 mid size upper endoscope Monitoring: Vital signs and clinical assessment, continuous EKG monitoring, Pulse oximetry, Carbon Dioxide monitoring and blood pressure monitoring were done throughout the procedure. Procedure:?The patient was placed in the left lateral decubitis position and pre-procedure medications were administered and a bite block was placed. The endoscope was inserted into the mouth and advanced under direct vision to the third part of duodenum. A careful inspection was made as the upper endoscope was withdrawn including a retroflexed examination of the proximal stomach; Findings and interventions are described below. Findings: Larynx:? Normal Esophagus:?GE junction at 36 cms.? Irregular Z line - biopsied to check for Wilson Stomach:?A 7-8 mm benign-appearing polyp cardia - biopsied. Moderate amount of retained food in the stomach obscuring the fundus. Mild gastric erythema. Biopsies were obtained. Grade 2 flap valve on retroflexed examination of the cardia. Duodenum:?Normal bulb and descending duodenum.? Biopsies were obtained from 3rd part of the duodenum to check for celiac sprue Intervention:?Biopsies as noted above Impression and Post Procedure Diagnosis: Endoscopy Findings: ESOPHAGUS:? Irregular Z line - biopsied to check for Wilson STOMACH: A 7-8 mm benign-appearing polyp cardia - biopsied. Moderate amount of retained food in the stomach obscuring the fundus. Mild gastric erythema. Biopsies were obtained. DUODENUM:? Normal - biopsied to check for celiac sprue Plan: Await pathology results Patient has an appointment on 02/19/21 in the GI Clinic with Shraddha Melvin NP . Consider further evaluation with a Gastric Emptying Study to rule out gastroparesis Above findings were reviewed with the patient and GERD and Gastric polyps handouts were given in the discharge area Surgeon:?Cordell Jacobsen MD Anesthesia:?MAC (Dr Galicia) Was an Microelectronics Assembler used for this Procedure?:?Yes Microelectronics Assembler:?Omayra Pak Pathology:?other (A. SMALL BOWEL R/O CELIACS? B. GASTRIC ANTRUM R/O H. PYLORI? C. GASTRIC POLYP? D. DISTAL ESOPHAGUS R/O BARRETTS) Condition:?stable Disposition:?PACU
== END 2021-01-27 10:55 | disposition home or self-care (01) ==
PROVIDERS: Visit Provider Internal Medicine Gastroenterology
PROC: 0DJ08ZZ Inspection of Upper Intestinal Tract, Via Natural or Artificial Opening Endoscopic (ICD-10-PCS; CPT 43235; principal; 2021-01-27 09:50)
DX: K29.50 Unspecified chronic gastritis without bleeding (principal); K21.9 Gastro-esophageal reflux disease without esophagitis; K31.7 Polyp of stomach and duodenum; Z86.19 Personal history of other infectious and parasitic diseases; D50.9 Iron deficiency anemia, unspecified; G47.33 Obstructive sleep apnea (adult) (pediatric); G62.9 Polyneuropathy, unspecified; Z88.8 Allergy status to other drugs, medicaments and biological substances; K59.04 Chronic idiopathic constipation; K76.0 Fatty (change of) liver, not elsewhere classified; E78.5 Hyperlipidemia, unspecified; Z79.899 Other long term (current) drug therapy; E66.9 Obesity, unspecified; Z68.29 Body mass index [BMI] 29.0-29.9, adult
CPT/HCPCS: 43239; 88305; 88342

== ENCOUNTER 2021-01-28 10:05 | Outpatient (REF) | payer OTHER, SELFPAY ==
--- NOTE | ~2021-01-28 | US_ITS ---
EXAMINATION: US COMPLETE ABDOMEN WITH LIVER ELASTOGRAPHY CLINICAL INFORMATION: Right upper quadrant pain. COMPARISON: Abdominal ultrasound examination dated 09/02/2020 and 05/08/2019. TECHNIQUE: Real-time imaging of the abdominal viscera. Noninvasive ultrasound liver fibrosis assessment is performed using Teto ElastPQ point quantification shear wave elastography (pSWE) with a C5-2 MHz transducer. Multiple elastography samples are obtained. FINDINGS: PANCREAS: Limited. The visualized pancreatic head and body are normal in appearance. The remainder of the pancreas is obscured from visualization by the overlying bowel gas. ABDOMINAL AORTA: The proximal, middle, and distal aortic segments are normal in caliber. INFERIOR VENA CAVA: Visualized portions are normal. LIVER: The liver demonstrates normal size, contour and increased echogenicity. No focal lesion or intrahepatic biliary duct dilatation. The right lobe measures 15.2 cm in length. The left lobe measures 12.4 cm in length. Portal flow is towards the liver (hepatopetal). Shear wave liver elastography median stiffness is 1.29 m/s (reference: normal median stiffness is 1.3 m/s or less). IQR/median stiffness to assess sampling precision is 0.12 (reference: good quality data set is IQR/median stiffness of 0.15 or less). GALLBLADDER: Surgically absent. COMMON BILE DUCT: Normal in caliber measuring 0.7 cm in diameter. RIGHT KIDNEY: Normal. No hydronephrosis. No renal calculi or focal parenchymal lesions. The kidney measures 10.3 cm in maximum dimension. LEFT KIDNEY: At the interpolar aspect, a 2.7 x 2.6 x 1.9 cm mildly complex (Bosniak 2) lobulated cyst with partial fine septation is seen. This is unchanged from ultrasound dimensions of 2.7 x 2.5 x 2.5 cm on 05/09/2019.. No hydronephrosis. No renal calculi or focal parenchymal lesions. The kidney measures 10.9 cm in maximum dimension. SPLEEN: Normal. The spleen measures 9.4 cm in maximum dimension. FREE FLUID: None. US/US abdomen comp w elastography IMPRESSION: 1. There is generalized increase in hepatic echotexture, consistent with fatty infiltration or hepatocellular disease. Please correlate clinically. No focal hepatic mass or intrahepatic biliary dilatation is seen. 2. Liver elastography: Measurements are consistent with a high probability of normal liver stiffness. 3. There is a continued stable mildly complex (Bosniak 2) left renal cyst. 4. The gallbladder is surgically absent. REFERENCE: Society of Radiologists in Ultrasound Liver Stiffness Thresholds (2020): LIVER STIFFNESS THRESHOLDS: *Liver Stiffness equal or less than 1.3 m/s: High probability of being normal. *Liver Stiffness less than 1.7 m/s: In the absence of other known clinical signs, rules out compensated advanced chronic liver disease. *Liver Stiffness 1.7-2.1 m/s: Suggestive of compensated advanced chronic liver disease but need further test for confirmation. *Liver Stiffness over 2.1 m/s: Rules in compensated advanced chronic liver disease. *Liver Stiffness over 2.4 m/s: Suggestive of clinically significant portal hypertension. QUALITY OF DATA SET: *IQR/Median value equal or less than 0.15 implies a quality data set. *IQR/Median value over 0.15 implies a poor quality data set. SIGNIFICANT CHANGE FROM PRIOR EXAM: Significant change if liver stiffness measurement is 10% or greater from prior exam. OTHER CONSIDERATIONS: The stage of liver fibrosis may be overestimated in the setting of acute hepatitis, liver inflammation, elevated liver function tests, hepatic vascular congestion, obstructive cholestasis, non-fasting state, and infiltrative diseases such as amyloidosis and lymphoma. In some patients with NAFLD, the liver stiffness thresholds for compensated advanced chronic liver disease may be lower. In causes other than viral hepatitis and NAFLD, liver stiffness thresholds are not well established.
== END 2021-01-28 10:06 | disposition home or self-care (01) ==
LOC: HO.US 10:05
PROVIDERS: PCP Internal Medicine; Visit Provider Nurse Practitioner
DX: R10.11 Right upper quadrant pain (principal); K76.0 Fatty (change of) liver, not elsewhere classified; R74.01 Elevation of levels of liver transaminase levels
CPT/HCPCS: 76705; 76981

== ENCOUNTER 2021-01-29 15:04 | Outpatient (REF) | payer OTHER, SELFPAY | END 2021-01-29 15:05 | disposition home or self-care (01) | LOC: HO.HAP 15:04 | PROVIDERS: Visit Provider Internal Medicine | DX: Z46.1 Encounter for fitting and adjustment of hearing aid (principal); H90.6 Mixed conductive and sensorineural hearing loss, bilateral | CPT/HCPCS: 92593; V5266 ==

== ENCOUNTER → 2021-03-25 15:30 | Outpatient (BNVA) | payer OTHER, SELFPAY | PROVIDERS: PCP Internal Medicine; Visit Provider Internal Medicine | DX: G47.33 Obstructive sleep apnea (adult) (pediatric) (principal); E66.9 Obesity, unspecified; R06.00 Dyspnea, unspecified | CPT/HCPCS: 99212 ==

== ENCOUNTER → 2021-03-31 09:33 | Outpatient (BNVA) | payer OTHER, SELFPAY | PROVIDERS: PCP Internal Medicine; Visit Provider Nurse Practitioner ==

== ENCOUNTER 2021-03-31 13:00 | Emergency (ER) | payer OTHER, SELFPAY ==
--- NOTE | 2021-03-31 | ECG_ITS ---
Test Reason : chest pain Blood Pressure : / mmHG Vent. Rate : 068 BPM Atrial Rate : 068 BPM P-R Int : 166 ms QRS Dur : 068 ms QT Int : 364 ms P-R-T Axes : 028 -08 024 degrees QTc Int : 387 ms Normal sinus rhythm Minimal voltage criteria for LVH, may be normal variant ( R in aVL ) Borderline ECG No significant changes seen Referred By: Generic ED Physician Electronically Signed By:ABEBA QUINONES MD
--- NOTE | ~2021-03-31 | XR_ITS ---
EXAMINATION: XR CHEST CLINICAL INFORMATION: Chest pain COMPARISON: 04/06/2020 TECHNIQUE: 2 views of the chest were obtained. FINDINGS: No significant abnormality is noted involving the heart, lungs, mediastinum, bony thorax or soft tissues. Surgical clips are noted in the gallbladder fossa. XR/XR chest 2V IMPRESSION: Unremarkable examination.
[2021-03-31 13:06] VITALS: BP 126/65; PULSE 69; RESP 17; TEMP 36.8; O2SAT 99; BMI 29.8
[2021-03-31 16:20] VITALS: BP 130/73; PULSE 70; RESP 16; TEMP 36.1; O2SAT 97
--- NOTE | 2021-03-31 16:21 | PC.NURSE ---
PATIENT CAME IN FROM WAITING ROOM ,VITALS WAS TAKEN ,PATIENT WAS HOOKED UP TO WARRANT CLERK BY THIS PCT ,PATIENT DAUGHTER AT BEDSIDE ,PATIENT RESTING .
--- NOTE | 2021-03-31 16:30 | ED.CHESTPAIN ---
HPI - Chest Pain General Chief Complaint: Chest Pain Stated Complaint: chest pain Time Seen by Provider: 03/31/21 15:56 Source: patient and family ( daughter, Conchita) Mode of arrival: ambulatory Limitations: language barrier ( Cambodian speaking only, printing table hand used) History of Present Illness HPI narrative: 60-year-old female who presents emergency department for evaluation of chest pain x4 days. The patient states that she had a gradual onset of chest pain 4 days prior while she was in bed resting. She points to her left anterior chest when asked to localize the pain. The pain does radiate to her left neck, arm to the elbow and back. The pain is a constant, pressure-like pain which does not change with breathing or with movement. The pain is 7/10 at its worst. The patient denied associated nausea, vomiting, shortness of breath or dyspnea on exertion. She states that she has been getting diaphoretic at night but denied fever or cough. Patient also states that she has had a constant, diffuse, pressure-like headache associated with her chest pain. The patient did not take any pain medications at home. She was having a telemedicine visit with her GI nurse practitioner and the patient complained of the above chest pain and her nurse practitioner advised to go to the hospital for evaluation. Related Data Home Medications Medication Instructions Recorded Confirmed aspirin 81 mg tablet,delayed 81 mg PO DAILY 04/07/20 06/30/20 release acetaminophen 500 mg tablet 1,000 mg PO BID PRN tab 01/08/21 Previous Rx's Medication Instructions Recorded cpap #1 ea 06/03/20 calcium carbonate 500 mg calcium 500 mg PO BID 30 Days #60 tab 06/25/20 (1,250 mg) tablet gemfibrozil 600 mg tablet 600 mg PO BID 90 Days #180 tab 06/25/20 docusate sodium 100 mg capsule 100 mg PO TID #90 cap 08/28/20 esomeprazole magnesium 40 mg 40 mg PO DAILY 30 Days #30 cap 08/28/20 capsule,delayed release linaclotide 290 mcg capsule 290 mcg PO QAM 30 Days #30 cap 08/28/20 (Linzess) ferrous sulfate 325 mg (65 mg 325 mg PO DAILY 90 Days #90 tab 10/17/20 iron) tablet,delayed release cholecalciferol (vitamin D3) 25 25 mcg PO DAILY #30 tab 11/19/20 mcg (1,000 unit) tablet (Vitamin D3) loratadine 10 mg tablet 10 mg PO DAILY 90 Days #90 tab 01/08/21 cranberry extract 500 mg capsule 500 mg PO DAILY #90 cap 03/09/21 famotidine 40 mg tablet (Pepcid) 40 mg PO BEDTIME 30 Days #30 tab 03/31/21 metoclopramide HCl 10 mg tablet 10 mg PO .TIDAC 30 Days #90 tab 03/31/21 (Reglan) Allergies Allergy/AdvReac Type Severity Reaction Status Date / Time Candie-PEG Allergy Intermediate rash Verified 03/31/21 13:05 octopus Allergy Intermediate HIVES Verified 03/31/21 13:05 pregabalin [From Lyrica] Allergy Intermediate LETHARGY, Verified 03/31/21 13:05 dizziness celecoxib [From Celebrex] AdvReac Intermediate PROBLEMS Verified 03/31/21 13:05 WITH THE LIVER dicyclomine AdvReac Mild stomach Verified 03/31/21 13:05 upset oxycodone [From Percocet] AdvReac Mild LETHARGY Verified 03/31/21 13:05 MANDARIN ORANGES Allergy Severe LIP Uncoded 08/28/20 13:03 SWELLING, HIVES PARMELEX Allergy Intermediate PROBLEMS Uncoded 08/28/20 13:03 WITH THE LIVER Review of Systems Review of Systems: Yes all other systems are reviewed and are negative [facility] Past Medical History [facility] Narrative: social history: Patient denies tobacco, alcohol and drug use. Medical History Arthritis Carpal tunnel syndrome Dyspnea on exertion Fibromyalgia Hearing loss Hyperlipidemia Iron deficiency anemia Neuropathy Normocytic anemia Obesity (BMI 30-39.9) GRAYSON (obstructive sleep apnea) Small bowel obstruction Tendonitis Surgical History Family history of lipoma History of History of carpal tunnel repair History of endoscopy History of laparoscopic cholecystectomy History of left breast biopsy History of temporal artery biopsy History of varicose vein stripping Family History Family History Father Heart disease Diabetes Hypertension Mother Diabetes Hypertension Arthritis Fibromyalgia Osteoporosis Social History Social History Household Members: Spouse Alcohol intake: never Patient Tobacco Use Status: Never used Tobacco Use of substances other than those prescribed or required for medical reasons: No Advance Directives: No Advance Directives Information Provided: Yes Patient : No 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al status: disabled Physical Exam Vital Signs: Vital Signs: Last Vital Signs Temp 97.0 F 03/31/21 16:20 Pulse 70 03/31/21 16:20 Resp 16 03/31/21 16:20 BP 130/73 03/31/21 16:20 Pulse Ox 97 03/31/21 16:20 Body Mass Index 29.8 Const: General: cooperative and no acute distress Orientation/consciousness: oriented to person and oriented to place Limitations: no limitations HENMT: Head: Yes normal to inspection, Yes normocephalic and Yes atraumatic Ears: external ears normal General nose exam: Normal external nose present Face and sinus: Yes normal facial exam Mouth: Normal oral and palatal mucosa present Throat: Yes posterior oropharynx normal Eyes: General: appearance normal, both eyes and all related structures Pupils: Equal, round and reactive pupils present Neck: Neck: Yes normal visual inspection, Yes no lymphadenopathy, Yes trachea midline, Yes supple and Yes other ( moderate to severe left trapezius muscle tenderness) Chest: Chest palpation & inspection: normal inspection of the chest and tenderness pectoral muscle on the left ( Moderate to severe) and sternum ( moderate to severe) Resp: Effort & Inspection: normal respiratory effort and able to speak in complete sentences Auscultation: clear to auscultation bilaterally Cardio: Rate: regular rate Rhythm: regular rhythm Heart sounds: S1 normal heart sound present, S2 normal heart sound present and no murmurs GI: Inspection: Yes normal to inspection Palpation (GI): Soft to palpation, nontender and no guarding Auscultation: normal bowel sounds : General: Yes no CVA tenderness Back/Spine/Pelvis: Back: no CVA tenderness Skin: General skin exam: no rashes or lesions noted Neuro: General: oriented to person and oriented to place Cranial nerves: Yes CN's II-XII intact bilaterally and Yes Equal, round and reactive pupils present Cognition (Neuro): normal cognition Motor exam (neuro): 5/5 motor strength present throughout Extrem: General: Yes normal to inspection Psych: Appearance: grossly normal Speech and movement: Normal speech and movement present Affect: normal affect Attitude: cooperative Thought process: Normal thought process present Thought content: Normal thought content present Course Course Course Narrative: 60-year-old female who presents emergency department for evaluation of left-sided chest pain that radiates to the left neck, left back and left arm x4 days, the pain has been constant and is 7 of 10 at its worst. She has also complained of a constant headache. The patient's vital signs were normal. Physical examination did reveal significant tenderness with palpation of the left chest wall, left trapezius muscle and left back. The patient's 12 EKG revealed no acute ST segment elevation or depression. Differential includes but is not limited to musculoskeletal pain, costochondritis, myocardial infarction/angina, pneumothorax. Therefore, I ordered a CBC, CMP, troponin, chest x-ray two view. I also ordered Toradol 30 mg IV for the patient's pain. 1846: The patient's pain is completely resolved after the IV Toradol. Laboratory evaluation revealed mild anemia otherwise was unremarkable. The patient's high sensitivity troponin I was below detectable limits. patient's pain is most likely secondary to costochondritis. She was advised to take ibuprofen and Tylenol for pain. The patient will be discharged home With printed and verbal instructions. MDM - Chest Pain Lab Data Result diagrams: 03/31/21 17:10 03/31/21 17:10 Labs: Lab Results 03/31/21 03/31/21 03/31/21 Range/Units 17:05 17:05 17:10 WBC 6.7 (4.8-10.8) X10*3/uL RBC 3.85 L (4.20-5.50) X10*6/uL Hgb 11.7 L (12.0-16.0) g/dl Hct 34.8 L (37-47) % MCV 90.4 (80-98) fL MCH 30.4 (27.0-33.0) pg MCHC 33.6 (31.0-35.0) g/dl RDW 12.6 (11.0-16.0) % Plt Count 305 (160-400) X10*3/uL MPV 8.7 L (9.4-12.3) fL Immature Gran % (Auto) Cancelled Neut % (Auto) Cancelled Lymph % (Auto) Cancelled Florence % (Auto) Cancelled Eos % (Auto) Cancelled Baso % (Auto) Cancelled Lymph # (Auto) Cancelled [place] # (Auto) Cancelled Eos # (Auto) Cancelled Baso # (Auto) Cancelled Abs Immat Gran (auto) Cancelled Absolute Neuts (auto) Cancelled Absolute Nucleated RBC 0.000 (0.0-0.012) X10*3/uL Nucleated RBC % (auto) 0.0 (0.0-0.2) /100WBC Neutrophils % (Manual) 55 (45-73) % Band Neutrophils % 4 (3-5) % Lymphocytes % (Manual) 29 (20-40) % Monocytes % (Manual) 7 (2-11) % Eosinophils % (Manual) 3 (0-4) % Metamyelocytes % 2 % Abs Neuts (Manual) 4.0 (2.2-7.9) X10*3/uL Lymphocytes # (Manual) 1.9 (0.6-4.8) X10*3/uL Monocytes # (Manual) 0.5 (0.0-1.2) X10*3/uL Eosinophils # (Manual) 0.2 (0.0-0.8) X10*3/UL Metamyelocytes # 0.1 X10*3/uL Platelet Estimate NORMAL (NORMAL) Plt Morphology Comment NORMAL RBC Morphology NORMAL Sodium (135-145) mmol/L Potassium (3.3-5.1) mmol/L Chloride (96-108) mmol/L Carbon Dioxide (22-29) mmol/L Anion Gap (12-20) BUN (9-16) mg/dL Creatinine (0.5-1.4) mg/dL Estim Creat Clear Calc Estimated GFR Random Glucose (60-115) mg/dL Calcium (8.4-10.2) mg/dL Total Bilirubin (0.0-1.0) mg/dL AST (5-31) U/L ALT (0-31) U/L Alkaline Phosphatase (39-117) U/L Troponin I High Sens (<3.5-17.0) ng/L Total Protein (6.5-8.0) g/dL Albumin (3.5-5.0) g/dL Urine Color YELLOW Urine Appearance CLEAR Urine pH 6.0 (5.0-8.0) Ur Specific Mclaughlin <= 1.005 (1.005-1.025) Urine Protein NEG (NEG-TRACE) MG/DL Urine Glucose (UA) NEG (NEG) MG/DL Urine Ketones NEG (NEG) MG/DL Urine Blood NEG (NEG) Urine Nitrite NEG (NEG) Ur Leukocyte Esterase NEG (NEG) COVID-19 (KG) Negative (Negative) COVID-19 Clin Com See Note 03/31/21 03/31/21 Range/Units 17:10 17:10 WBC (4.8-10.8) X10*3/uL RBC (4.20-5.50) X10*6/uL Hgb (12.0-16.0) g/dl Hct (37-47) % MCV (80-98) fL MCH (27.0-33.0) pg MCHC (31.0-35.0) g/dl RDW (11.0-16.0) % Plt Count (160-400) X10*3/uL MPV (9.4-12.3) fL Immature Gran % (Auto) Neut % (Auto) Lymph % (Auto) [place] % (Auto) Eos % (Auto) Baso % (Auto) Lymph # (Auto) [place] # (Auto) Eos # (Auto) Baso # (Auto) Abs Immat Gran (auto) Absolute Neuts (auto) Absolute Nucleated RBC (0.0-0.012) X10*3/uL Nucleated RBC % (auto) (0.0-0.2) /100WBC Neutrophils % (Manual) (45-73) % Band Neutrophils % (3-5) % Lymphocytes % (Manual) (20-40) % Monocytes % (Manual) (2-11) % Eosinophils % (Manual) (0-4) % Metamyelocytes % % Abs Neuts (Manual) (2.2-7.9) X10*3/uL Lymphocytes # (Manual) (0.6-4.8) X10*3/uL Monocytes # (Manual) (0.0-1.2) X10*3/uL Eosinophils # (Manual) (0.0-0.8) X10*3/UL Metamyelocytes # X10*3/uL Platelet Estimate (NORMAL) Plt Morphology Comment RBC Morphology Sodium 141 (135-145) mmol/L Potassium 4.3 (3.3-5.1) mmol/L Chloride 104 (96-108) mmol/L Carbon Dioxide 28 (22-29) mmol/L Anion Gap 13 (12-20) BUN 12 (9-16) mg/dL Creatinine 0.62 (0.5-1.4) mg/dL Estim Creat Clear Calc 86.2 Estimated GFR > 60 Random Glucose 92 (60-115) mg/dL Calcium 9.8 (8.4-10.2) mg/dL Total Bilirubin 0.4 (0.0-1.0) mg/dL AST 28 (5-31) U/L ALT 26 (0-31) U/L Alkaline Phosphatase 141 H (39-117) U/L Troponin I High Sens < 3.5 (<3.5-17.0) ng/L Total Protein 7.0 (6.5-8.0) g/dL Albumin 4.2 (3.5-5.0) g/dL Urine Color Urine Appearance Urine pH (5.0-8.0) Ur Specific Mclaughlin (1.005-1.025) Urine Protein (NEG-TRACE) MG/DL Urine Glucose (UA) (NEG) MG/DL Urine Ketones (NEG) MG/DL Urine Blood (NEG) Urine Nitrite (NEG) Ur Leukocyte Esterase (NEG) COVID-19 (KG) (Negative) COVID-19 Clin Com ECG Data ECG #1: Interpretation: 1322: Normal sinus rhythm with a rate of 68, normal DC interval QRS interval and QTC interval. No ST segment elevation, no ST segment depression, no PACs, no PVCs. Discharge Plan Discharge Clinical Impression: Acute costochondritis Patient Disposition: Home, Self-Care Instructions: Costochondritis (ED) Additional Instructions: your blood work was normal, your high sensitivity troponin I was below detectable limits which is very reassuring suggesting that your pain is not caused by a heart attack. Your very tender when I push on the left side of your chest this is most likely caused by inflammation of your chest joints ( costochondritis ). Take ibuprofen 200 mg pills, 2 pills every 6 hours as needed for pain. Take Tylenol (acetaminophen) 500 mg pills, 2 pills every 4 to 6 hours as needed for pain. Follow-up with your doctor in 2 days. Please return to the emergency department if your symptoms get worse or if you develop any symptoms that are concerning to you. Prescriptions: No Action (DME) cpap 5-20 cm H2O autoPAP See Rx Instructions .Route .MEDSUPPLY Qty: 1 RF: 0 calcium carbonate 500 mg calcium (1,250 mg) tablet 500 mg PO BID 30 Days Qty: 60 RF: 11 gemfibrozil 600 mg tablet 600 mg PO BID 90 Days Qty: 180 RF: 3 cholecalciferol (vitamin D3) [Vitamin D3] 25 mcg (1,000 unit) tablet 25 mcg PO DAILY Qty: 30 RF: 11 loratadine 10 mg tablet 10 mg PO DAILY 90 Days Qty: 90 RF: 3 cranberry extract 500 mg capsule 500 mg PO DAILY Qty: 90 RF: 3 ferrous sulfate 325 mg (65 mg iron) tablet,delayed release (DR/EC) 325 mg PO DAILY 90 Days Qty: 90 RF: 3 aspirin 81 mg tablet,delayed release (DR/EC) 81 mg PO DAILY RF: 0 Linzess 290 mcg capsule 290 mcg PO QAM 30 Days Qty: 30 RF: 6 esomeprazole magnesium 40 mg capsule,delayed release(DR/EC) 40 mg PO DAILY 30 Days Qty: 30 RF: 6 docusate sodium 100 mg capsule 100 mg PO TID Qty: 90 RF: 6 acetaminophen 500 mg tablet 1,000 mg PO BID PRNRF: 0 metoclopramide HCl [Reglan] 10 mg tablet 10 mg PO .TIDAC 30 Days Qty: 90 RF: 3 famotidine [Pepcid] 40 mg tablet 40 mg PO BEDTIME 30 Days Qty: 30 RF: 6
[2021-03-31 17:16] LABS: Hemoglobin 11.7 g/dl (12.0-16.0); Mean Corpuscular Volume 90.4 fL (80-98)
[2021-03-31 17:17] LABS: Appearance Urine CLEAR; Color Urine YELLOW; Glucose Urine UA NEG (NEG); Leukocyte Esterase Urine NEG (NEG); Nitrite Urine NEG (NEG); Specific Gravity - Urine <= 1.005 (1.005-1.025); Urine Blood NEG (NEG); Urine Ketones NEG (NEG); Urine Protein NEG (NEG-TRACE)
[2021-03-31 17:21] LABS: Hematocrit 34.8 % (37-47); Mean Corpuscular HGB Conc 33.6 g/dl (31.0-35.0); Mean Corpuscular Hemoglobin 30.4 pg (27.0-33.0); Mean Platelet Volume 8.7 fL (9.4-12.3); Platelet Count 305 X10*3/uL (160-400); Red Blood Count 3.85 X10*6/uL (4.20-5.50); Red Cell Distribution Width 12.6 % (11.0-16.0); White Blood Count 6.7 X10*3/uL (4.8-10.8)
[2021-03-31] MEDS: Ketorolac Tromethamine 15 MG/ML VIAL 30 MG IVPUSH (17:22)
[2021-03-31 17:36] LABS: Troponin-I High Sensitivity < 3.5 ng/L (<3.5-17.0)
[2021-03-31 17:37] LABS: Alanine Aminotransferase 26 U/L (0-31); Albumin Level 4.2 g/dL (3.5-5.0); Alkaline Phosphatase 141 U/L (39-117); Anion Gap 13 (12-20); Aspartate Amino Transferase 28 U/L (5-31); Bilirubin Total 0.4 mg/dL (0.0-1.0); Blood Urea Nitrogen 12 mg/dL (9-16); Calcium 9.8 mg/dL (8.4-10.2); Carbon Dioxide 28 mmol/L (22-29); Chloride 104 mmol/L (96-108); Creatinine Clr Calc Pharmacy 86.2; Estimated Glomerular Filt Rate > 60; Glucose Random 92 mg/dL (60-115); Potassium 4.3 mmol/L (3.3-5.1); Sodium 141 mmol/L (135-145)
[2021-03-31 17:51] LABS: COVID-19 Test Negative (Negative)
[2021-03-31 17:54] LABS: Band Neutrophils Percent 4 % (3-5); Eosinophils Absolute Manual 0.2 X10*3/UL (0.0-0.8); Eosinophils Percent Manual 3 % (0-4); Lymphocytes Absolute Manual 1.9 X10*3/uL (0.6-4.8); Lymphocytes Percent Manual 29 % (20-40); Metamyelocytes Absolute 0.1 X10*3/uL; Metamyelocytes Percent 2 %; Monocytes Absolute Manual 0.5 X10*3/uL (0.0-1.2); Monocytes Percent Manual 7 % (2-11); Neutrophils Percent Manual 55 % (45-73)
[2021-03-31 17:55] LABS: RBC Morphology NORMAL
[2021-03-31 17:56] LABS: Platelet Estimate NORMAL (NORMAL); Platelet Morphology Comment NORMAL
[2021-03-31 18:40] VITALS: BP 130/65; PULSE 72; RESP 17; TEMP 36.8; O2SAT 99
== END 2021-03-31 19:12 | disposition home or self-care (01) ==
PROVIDERS: Emergency Provider Emergency Medicine Emergency Medical Services; PCP Internal Medicine
DX: M94.0 Chondrocostal junction syndrome [Tietze] (principal); R51.9 Headache, unspecified; D64.9 Anemia, unspecified; Z20.822 Contact with and (suspected) exposure to COVID-19
CPT/HCPCS: 36415; 71046; 80053; 81003; 84484; 85007; 85027; 87635; 93005; 96374; 99284; 99285; J1885

== ENCOUNTER 2021-04-03 10:58 | Outpatient (REF) | payer OTHER, SELFPAY | END 2021-04-03 10:59 | disposition home or self-care (01) | LOC: HO.LAB 10:58 | PROVIDERS: PCP Internal Medicine; Visit Provider Internal Medicine | DX: Z20.822 Contact with and (suspected) exposure to COVID-19 (principal) | CPT/HCPCS: C9803; U0003; U0005 ==

== ENCOUNTER → 2021-04-28 12:48 | Outpatient (BNVA) | payer OTHER, SELFPAY | PROVIDERS: PCP Internal Medicine; Visit Provider Nurse Practitioner ==

== ENCOUNTER → 2021-05-14 12:30 | Outpatient (BNVA) | payer OTHER, SELFPAY | PROVIDERS: PCP Internal Medicine; Referring Provider Internal Medicine; Visit Provider Nurse Practitioner | DX: K31.84 Gastroparesis (principal); K76.0 Fatty (change of) liver, not elsewhere classified; K21.9 Gastro-esophageal reflux disease without esophagitis | CPT/HCPCS: 99212 ==

== ENCOUNTER 2021-05-15 10:56 | Outpatient (REF) | payer OTHER, SELFPAY ==
[2021-05-15 11:32] LABS: Alanine Aminotransferase 22 U/L (0-31); Albumin Level 4.2 g/dL (3.5-5.0); Alkaline Phosphatase 119 U/L (39-117); Anion Gap 15 (12-20); Aspartate Amino Transferase 32 U/L (5-31); Bilirubin Direct 0.2 mg/dL (0.0-0.5); Bilirubin Total 0.5 mg/dL (0.0-1.0); Blood Urea Nitrogen 12 mg/dL (9-16); Calcium 9.4 mg/dL (8.4-10.2); Carbon Dioxide 27 mmol/L (22-29); Chloride 105 mmol/L (96-108); Cholesterol 222 mg/dL; Estimated Glomerular Filt Rate > 60; Glucose Fasting 101 mg/dL (60-99); HDL Cholesterol 43 mg/dL; LDL Cholesterol Calculated 152 mg/dl; Potassium 4.1 mmol/L (3.3-5.1); Sodium 143 mmol/L (135-145); Total Protein 7.1 g/dL (6.5-8.0); Triglycerides 138 mg/dL
[2021-05-18 14:46] LABS: Alpha Fetoprotein 3.9 ng/mL
[2021-05-20 12:42] LABS: Vitamin D 25-OH, D2 <4 ng/mL; Vitamin D 25-OH, D3 57 ng/mL; Vitamin D 25-OH, Total 57 ng/mL (30-100)
== END 2021-05-15 10:57 | disposition home or self-care (01) ==
LOC: HO.LAB 10:56
PROVIDERS: Absent Provider Nurse Practitioner; PCP Internal Medicine; Visit Provider Internal Medicine
DX: K21.9 Gastro-esophageal reflux disease without esophagitis (principal); E78.5 Hyperlipidemia, unspecified; E55.9 Vitamin D deficiency, unspecified; K76.0 Fatty (change of) liver, not elsewhere classified
CPT/HCPCS: 36415; 80053; 80061; 80076; 82105; 82248; 82306

== ENCOUNTER → 2021-06-25 14:50 | Outpatient (BNVA) | payer OTHER, SELFPAY | PROVIDERS: PCP Internal Medicine; Visit Provider Internal Medicine | DX: G47.33 Obstructive sleep apnea (adult) (pediatric) (principal); R06.00 Dyspnea, unspecified; J30.9 Allergic rhinitis, unspecified | CPT/HCPCS: 99212 ==

== ENCOUNTER 2021-07-21 08:39 | Outpatient (REF) | payer OTHER, SELFPAY ==
--- NOTE | ~2021-07-21 | US_ITS ---
EXAMINATION: US ABDOMEN LIMITED CLINICAL INFORMATION: Fatty (change of) liver, not elsewhere classified. COMPARISON: Ultrasound complete abdomen with liver elastography 01/28/2021. Ultrasound abdomen complete 09/02/2020. CT abdomen and pelvis without contrast 06/13/2019. X-ray abdomen KUB 07/05/2019. X-ray abdomen complete 01/18/2018. TECHNIQUE: Real-time imaging of the right upper quadrant abdominal viscera. FINDINGS: PANCREAS: Normal. LIVER: The liver is normal in size. The liver contour is normal. Liver is slightly increased in echogenicity. No focal hepatic lesion. There is no intrahepatic biliary duct dilatation seen. GALLBLADDER: Surgically absent. COMMON BILE DUCT: Normal in caliber measuring 0.6 cm in diameter. RIGHT KIDNEY: Normal. No hydronephrosis. No renal calculi or focal parenchymal lesions. The kidney measures 10.8 cm in maximum dimension. FREE FLUID: None. US/US abdomen limited IMPRESSION: Mild hepatic steatosis without focal lesion. The rest of the abdominal ultrasound is unremarkable.
== END 2021-07-21 08:40 | disposition home or self-care (01) ==
LOC: HO.US 08:39
PROVIDERS: Visit Provider Nurse Practitioner
DX: K76.0 Fatty (change of) liver, not elsewhere classified (principal)
CPT/HCPCS: 76705

== ENCOUNTER 2021-07-23 14:13 | Outpatient (REF) | payer OTHER, SELFPAY | END 2021-07-23 14:14 | disposition home or self-care (01) | LOC: HO.HAP 14:13 | PROVIDERS: Visit Provider Internal Medicine | DX: Z46.1 Encounter for fitting and adjustment of hearing aid (principal); H90.3 Sensorineural hearing loss, bilateral | CPT/HCPCS: V5266 ==

== ENCOUNTER 2021-08-24 11:48 | Outpatient (REF) | payer OTHER, SELFPAY ==
[2021-08-24 13:26] LABS: Hematocrit 34.6 % (37.0-47.0); Hemoglobin 10.9 g/dl (12.0-16.0); Mean Corpuscular HGB Conc 31.5 g/dl (31.0-35.0); Mean Corpuscular Hemoglobin 30.4 pg (27.0-33.0); Mean Corpuscular Volume 96.4 fL (80.0-98.0); Platelet Count 307 X10*3/uL (160-400); Red Blood Count 3.59 X10*6/uL (4.20-5.50); Red Cell Distribution Width 12.8 % (11.0-16.0); White Blood Count 5.5 X10*3/uL (4.8-10.8)
[2021-08-24 14:02] LABS: Alanine Aminotransferase 20 U/L (0-31); Albumin Level 3.9 g/dL (3.5-5.0); Alkaline Phosphatase 106 U/L (39-117); Aspartate Amino Transferase 21 U/L (5-31); Bilirubin Direct < 0.2 mg/dL (0.0-0.5); Bilirubin Total 0.3 mg/dL (0.0-1.0); Total Protein 6.7 g/dL (6.5-8.0)
[2021-08-24 14:45] LABS: Band Neutrophils Percent 2 % (3-5); Basophils Abs Manual 0.1 X10*3/uL (0.0-0.2); Basophils Percent Manual 1 % (0-2); Eosinophils Absolute Manual 0.2 X10*3/uL (0.0-0.4); Eosinophils Percent Manual 4 % (0-4); Lymphocytes Absolute Manual 1.9 X10*3/uL (1.2-4.9); Lymphocytes Percent Manual 34 % (20-40); Metamyelocytes Absolute 0.1 X10*3/uL; Metamyelocytes Percent 2 %; Monocytes Absolute Manual 0.4 X10*3/uL (0.1-1.2); Monocytes Percent Manual 7 % (2-11); Neutrophils Absolute Manual 2.9 X10*3/uL (2.0-8.3); Neutrophils Percent Manual 50 % (45-73)
[2021-08-24 14:47] LABS: Platelet Estimate NORMAL (NORMAL); Platelet Morphology Comment NORMAL; Toxic Vacuolation PRESENT
[2021-08-24 14:48] LABS: RBC Morphology NORMAL
[2021-08-26 12:06] LABS: Alpha Fetoprotein 3.5 ng/mL
== END 2021-08-24 11:49 | disposition home or self-care (01) ==
LOC: HO.LAB 11:48
PROVIDERS: PCP Internal Medicine; Referring Provider Internal Medicine; Visit Provider Nurse Practitioner
DX: K59.04 Chronic idiopathic constipation (principal); K76.0 Fatty (change of) liver, not elsewhere classified; K31.84 Gastroparesis; K21.9 Gastro-esophageal reflux disease without esophagitis; D64.9 Anemia, unspecified
CPT/HCPCS: 36415; 80076; 82105; 85007; 85027; 99202

== ENCOUNTER 2021-08-26 14:21 | Outpatient (REF) | payer OTHER, SELFPAY ==
[2021-08-26 14:48] LABS: FIT Int Ctl YES; FIT1 NEGATIVE (NEGATIVE); FIT2 NEGATIVE (NEGATIVE)
== END 2021-08-26 14:22 | disposition home or self-care (01) ==
LOC: HO.LNP 14:21
PROVIDERS: Visit Provider Nurse Practitioner
DX: D64.9 Anemia, unspecified (principal)
CPT/HCPCS: 82274

== ENCOUNTER 2021-08-28 14:21 | Outpatient (REF) | payer OTHER, SELFPAY ==
--- NOTE | ~2021-08-28 | XR_ITS ---
EXAMINATION: XR THORACOLUMBAR SPINE CLINICAL INFORMATION: Pain COMPARISON: Previous x-ray May 2016 TECHNIQUE: 2 views of the thoracic spine FINDINGS: Bone alignment is normal. No fracture or dislocation is seen. There is mild disc space narrowing and degenerative spondylosis of the midthoracic spine. Paraspinal soft tissues are unremarkable. XR/XR thoracic spine 2V IMPRESSION: Mild degenerative changes of the midthoracic spine.
[2021-08-28 14:47] LABS: MANUAL DIFF FLAG NO
[2021-08-28 14:51] LABS: Basophils Absolute Auto 0.1 X10*3/uL (0.0-0.2); Basophils Percent Auto 0.8 % (0-2); Eosinophils Absolute Auto 0.3 X10*3/uL (0.0-0.4); Hemoglobin 11.3 g/dl (12.0-16.0); Imm Gran Abs Auto 0.33 X10*3/uL (0.00-0.03); Imm Gran Pct Auto 4.5 % (0.0-0.4); Lymphocytes Absolute Auto 2.3 X10*3/uL (1.2-4.9); Lymphocytes Percent Auto 31.4 % (20-40); Mean Corpuscular HGB Conc 32.3 g/dl (31.0-35.0); Mean Corpuscular Hemoglobin 30.6 pg (27.0-33.0); Mean Corpuscular Volume 94.9 fL (80.0-98.0); Mean Platelet Volume 8.8 fL (9.4-12.3); Monocytes Absolute Auto 0.7 X10*3/uL (0.1-1.2); Monocytes Percent Auto 9.7 % (2-11); Neutrophils Absolute Auto 3.6 x10*3/uL (2.0-8.3); Neutrophils Percent Auto 49.6 % (45-73); Platelet Count 303 X10*3/uL (160-400); Red Blood Count 3.69 X10*6/uL (4.20-5.50); Red Cell Distribution Width 12.7 % (11.0-16.0); White Blood Count 7.3 X10*3/uL (4.8-10.8)
[2021-08-28 15:26] LABS: Lipase 37 U/L (8-78)
== END 2021-08-28 14:22 | disposition home or self-care (01) ==
LOC: HO.XRAY 14:21
PROVIDERS: Nurse Practitioner; PCP Internal Medicine; Visit Provider Nurse Practitioner Acute Care
DX: M54.6 Pain in thoracic spine (principal); R10.13 Epigastric pain
CPT/HCPCS: 36415; 72070; 83690; 85025

== ENCOUNTER → 2021-09-10 13:01 | Outpatient (BNVA) | payer OTHER, SELFPAY | PROVIDERS: PCP Internal Medicine; Referring Provider Internal Medicine; Visit Provider Nurse Practitioner | DX: K21.9 Gastro-esophageal reflux disease without esophagitis (principal); K76.0 Fatty (change of) liver, not elsewhere classified; K31.84 Gastroparesis; K59.04 Chronic idiopathic constipation; M47.814 Spondylosis without myelopathy or radiculopathy, thoracic region | CPT/HCPCS: 99212 ==

== ENCOUNTER 2021-09-12 23:36 | Inpatient (IN) | payer OTHER, SELFPAY ==
--- NOTE | ~2021-09-12 | XR_ITS ---
EXAMINATION: XR CHEST CLINICAL INFORMATION: NG tube placement COMPARISON: CT abdomen pelvis earlier this morning and chest x-ray 03/31/2021 TECHNIQUE: Frontal view of the chest was obtained. FINDINGS: Cardiac silhouette is normal in size. Enteric tube terminates below the level the diaphragm, beyond the parameters of today's x-ray. The stomach again appears to be distended with fluid and likely a small amount of air. The lungs are well aerated. No lobar consolidation, pleural effusion or pneumothorax. XR/XR chest 1V IMPRESSION: Enteric tube terminates below the level of the diaphragm.
--- NOTE | ~2021-09-12 | CT_ITS ---
EXAMINATION: CT ABDOMEN AND PELVIS WITH CONTRAST CLINICAL INFORMATION: Abdominal pain with nausea. Evaluate for small bowel obstruction. COMPARISON: CT dated 06/13/2019. Ultrasound dated 07/21/2021 TECHNIQUE: Multidetector volumetric images were obtained from the superior aspect of the liver through the pubic symphysis following administration 85 mL of Omnipaque 350 intravenous contrast. Sagittal and coronal reformatted images were obtained on the technologist's workstation. Oral contrast: No This CT examination was performed using dose optimization techniques as appropriate, variously including the following: *Automated exposure control *Adjustment of mA and/or kV according to patient size (this includes techniques or standardized protocols for targeted exams where dose is matched to indication/reason for exam; i.e. extremities or head) *Use of iterative reconstruction technique DLP: 586 mGy-cm FINDINGS: LUNG BASES: The visualized lung bases are unremarkable. LIVER, GALLBLADDER, AND BILIARY TREE: The liver is normal in size and contour. Hepatic steatosis. No focal hepatic lesion or biliary ductal dilatation is present. Cholecystectomy. PANCREAS: Unremarkable. SPLEEN: Unremarkable. ADRENAL GLANDS: Unremarkable. KIDNEYS AND URETERS: The kidneys are normal in size, shape, and attenuation. Stable simple, or thinly septate cyst in the interpolar region of left kidney. This is benign and requires no further follow-up. No hydronephrosis, hydroureter, or calculi seen. No perinephric stranding. BLADDER: Unremarkable GASTROINTESTINAL TRACT: Stomach is moderately distended as is the duodenum and proximal jejunum which transitions to normal caliber in the midabdomen without point of transition evident. Normal appendix. Left colonic diverticulosis without evidence of diverticulitis. ABDOMINAL WALL: No significant hernia is appreciated. LYMPH NODES: Normal. VASCULAR: Unremarkable. PELVIC VISCERA: Uterus and adnexa unremarkable. OSSEOUS STRUCTURES: No acute or suspicious osseous abnormalities. CT/CT abdomen pelvis w con IMPRESSION: * There is dilatation of the stomach, duodenum and proximal jejunum which gradually transitions to normal caliber within the midabdomen. No evidence of mechanical obstruction. These findings are most suggestive of ileus or hypomotility. * Left colonic diverticulosis without evidence of diverticulitis. * Hepatic steatosis.
--- NOTE | ~2021-09-12 | XR_ITS ---
EXAMINATION: XR ABDOMEN KUB CLINICAL INDICATION: Follow-up ileus COMPARISON: Previous CT of the abdomen and pelvis 09/13/2021 TECHNIQUE: AP view of the abdomen. FINDINGS: There is a nasogastric tube that projects over the proximal stomach. There are no dilated loops of bowel. There is no evidence of free air. No calcifications are seen. There are surgical clips in the right upper quadrant suggestive of previous cholecystectomy. There are degenerative changes of the spine and hip joints. XR/XR KUB IMPRESSION: Nasogastric tube in the stomach. No dilated loops of bowel.
[2021-09-13 00:23] VITALS: BP 130/76; PULSE 74; RESP 15; TEMP 36.6; O2SAT 98; BMI 29.0
[2021-09-13 02:35] LABS: Basophils Percent Auto 0.3 % (0-2); Eosinophils Absolute Auto 0.2 X10*3/uL (0.0-0.4); Eosinophils Percent Auto 1.9 % (0-4); Hematocrit 36.8 % (37.0-47.0); Hemoglobin 12.1 g/dl (12.0-16.0); Imm Gran Pct Auto 2.3 % (0.0-0.4); Lymphocytes Absolute Auto 1.8 X10*3/uL (1.2-4.9); Lymphocytes Percent Auto 19.8 % (20-40); MANUAL DIFF FLAG NO; Mean Corpuscular HGB Conc 32.9 g/dl (31.0-35.0); Mean Corpuscular Hemoglobin 30.5 pg (27.0-33.0); Mean Corpuscular Volume 92.7 fL (80.0-98.0); Mean Platelet Volume 8.9 fL (9.4-12.3); Monocytes Absolute Auto 0.6 X10*3/uL (0.1-1.2); Monocytes Percent Auto 7.2 % (2-11); Neutrophils Absolute Auto 6.1 x10*3/uL (2.0-8.3); Neutrophils Percent Auto 68.5 % (45-73); Platelet Count 337 X10*3/uL (160-400); Red Blood Count 3.97 X10*6/uL (4.20-5.50); Red Cell Distribution Width 12.5 % (11.0-16.0); White Blood Count 8.9 X10*3/uL (4.8-10.8)
--- NOTE | 2021-09-13 02:36 | ED_ITS ---
HPI - Abdominal Pain General Chief Complaint: Abdominal Pain Stated Complaint: Abd pain Time Seen by Provider: 09/13/21 02:01 Source: patient, family (Daughter) and diplomatic interpreter/translator Mode of arrival: ambulatory History of Present Illness HPI narrative: 60-year-old female with positive surgical history, history of SBO and has history of gastroparesis who presents with mid abdominal discomfort with belching and nausea as well as obstipation. Patient otherwise denies any shortness of breath/chest pain but has been having back pain for 1 week and on x-rays, according to the daughter, it showed DJD. Related Data Home Medications Medication Instructions Recorded Confirmed acetaminophen 500 mg tablet 1,000 mg PO BID PRN tab 01/08/21 08/28/21 Previous Rx's Medication Instructions Recorded cpap #1 ea 06/03/20 docusate sodium 100 mg capsule 100 mg PO TID #90 cap 08/28/20 ferrous sulfate 325 mg (65 mg 325 mg PO DAILY 90 Days #90 tab 10/17/20 iron) tablet,delayed release cholecalciferol (vitamin D3) 25 25 mcg PO DAILY #30 tab 11/19/20 mcg (1,000 unit) tablet (Vitamin D3) loratadine 10 mg tablet 10 mg PO DAILY 90 Days #90 tab 01/08/21 cranberry extract 500 mg capsule 500 mg PO DAILY #90 cap 03/09/21 calcium carbonate 500 mg calcium 500 mg PO BID 30 Days #60 tab 06/27/21 (1,250 mg) tablet aspirin 81 mg tablet,delayed 81 mg PO DAILY #90 tab 07/06/21 release gemfibrozil 600 mg tablet 600 mg PO BID 90 Days #180 tab 07/09/21 esomeprazole magnesium 40 mg 40 mg PO DAILY #90 cap 08/24/21 capsule,delayed release famotidine 40 mg tablet (Pepcid) 40 mg PO BEDTIME 30 Days #30 tab 08/24/21 linaclotide 145 mcg capsule 145 mcg PO QAM #30 cap 08/24/21 (Linzess) metoclopramide HCl 10 mg tablet 10 mg PO .TIDAC 30 Days #90 tab 08/24/21 (Reglan) lidocaine 5 % topical patch 1 patch TOPICAL DAILY #15 ea 08/28/21 nabumetone 500 mg tablet 500 mg PO BID PRN #14 tab 08/28/21 Allergies Allergy/AdvReac Type Severity Reaction Status Date / Time Candie-PEG Allergy Intermediate rash Verified 09/10/21 13:22 octopus Allergy Intermediate HIVES Verified 09/10/21 13:22 pregabalin [From Lyrica] Allergy Intermediate LETHARGY, Verified 09/10/21 13:22 dizziness celecoxib [From Celebrex] AdvReac Intermediate PROBLEMS Verified 09/10/21 13:22 WITH THE LIVER dicyclomine AdvReac Mild stomach Verified 09/10/21 13:22 upset oxycodone [From Percocet] AdvReac Mild LETHARGY Verified 09/10/21 13:22 MANDARIN ORANGES Allergy Severe LIP Uncoded 09/10/21 13:22 SWELLING, HIVES PARMELEX Allergy Intermediate PROBLEMS Uncoded 09/10/21 13:22 WITH THE LIVER Review of Systems Review of Systems Pertinent positives and negatives as stated in HPI 10 point review of systems is otherwise negative. PMFSH Past Medical History Source: nursing notes reviewed Medical History Allergic rhinitis Arthritis Carpal tunnel syndrome Dyspnea on exertion Elevated AST (SGOT) Epigastric pain Fibromyalgia H. pylori infection Hearing loss Hyperlipidemia Ingrown toenail of right foot Iron deficiency anemia Midline thoracic back pain Nausea Neuropathy Normocytic anemia Obesity (BMI 30-39.9) GRAYSON (obstructive sleep apnea) RUQ pain Small bowel obstruction Tendonitis Surgical History Family history of lipoma History of History of carpal tunnel repair History of endoscopy History of laparoscopic cholecystectomy History of left breast biopsy History of temporal artery biopsy History of varicose vein stripping Family History Family History Father Heart disease Diabetes Hypertension Mother Diabetes Hypertension Arthritis Fibromyalgia Osteoporosis Social History Social History Household Members: Spouse Housing: Apartment Alcohol intake: never Patient Tobacco Use Status: Never used Tobacco e-Cigarette/Vaping Use: Never Used Second Hand Smoke Exposure: No Use of substances other than those prescribed or required for medical reasons: No Advance Directives: No Patient : No service: No 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al status: disabled Physical Exam ED Vital Signs: Vital Signs - 24 hr 09/13/21 00:23 Temperature 97.8 F Pulse Rate 74 Respiratory Rate 15 Blood Pressure 130/76 Pulse Oximetry 98 BMI result Body Mass Index 29.0 VITAL SIGNS: Reviewed. GENERAL: Well developed, well nourished, in no acute distress. HEAD: Normocephalic/atraumatic EYES: PERRLA, EOMI EARS: Ext canals without abnormality OROPHARYNX: no oral lesions noted, posterior pharynx clear LUNGS: Normal breath sounds. No adventitious sounds or accessory muscle use. SpO2<98> CARDIOVASCULAR: Regular rate and rhythm without noted murmurs ABDOMEN: Soft, mid abdominal tenderness, hypoactive bowel sounds, distension. MUSCULOSKELETAL: No tenderness, deformities, or effusions noted on gross inspection. EXTREMITIES: No cyanosis, clubbing or edema. SKIN: Inspection of the skin reveals no rashes NEUROLOGIC: Alert and oriented x 4. Strength and sensation to light touch were grossly intact x 4. Course Course Course Narrative: 60-year-old female with history and clinical presentation most suspicious for SBO as opposed to gastro paresis especially given patient's obstipation. Review of all investigations demonstrates ileus/hypomotility. This case was discussed with Surgical Services who recommends admission to medicine and I discussed this case with the inpatient hospitalist who accepts admission. MDM - Abdominal Pain Lab Data Result diagrams: 09/13/21 02:24 09/13/21 02:24 Labs: Lab Results 09/13/21 09/13/21 09/13/21 Range/Units 02:24 02:24 02:25 WBC 8.9 (4.8-10.8) X10*3/uL RBC 3.97 L (4.20-5.50) X10*6/uL Hgb 12.1 (12.0-16.0) g/dl Hct 36.8 L (37.0-47.0) % MCV 92.7 (80.0-98.0) fL MCH 30.5 (27.0-33.0) pg MCHC 32.9 (31.0-35.0) g/dl RDW 12.5 (11.0-16.0) % Plt Count 337 (160-400) X10*3/uL MPV 8.9 L (9.4-12.3) fL Immature Gran % (Auto) 2.3 H (0.0-0.4) % Neut % (Auto) 68.5 (45-73) % Lymph % (Auto) 19.8 L (20-40) % [place] % (Auto) 7.2 (2-11) % Eos % (Auto) 1.9 (0-4) % Baso % (Auto) 0.3 (0-2) % Lymph # (Auto) 1.8 (1.2-4.9) X10*3/uL [place] # (Auto) 0.6 (0.1-1.2) X10*3/uL Eos # (Auto) 0.2 (0.0-0.4) X10*3/uL Baso # (Auto) 0.0 (0.0-0.2) X10*3/uL Abs Immat Gran (auto) 0.20 H (0.00-0.03) X10*3/uL Absolute Neuts (auto) 6.1 (2.0-8.3) x10*3/uL Absolute Nucleated RBC 0.000 (0.0-0.012) X10*3/uL Nucleated RBC % (auto) 0.0 (0.0-0.2) /100WBC Sodium 141 (135-145) mmol/L Potassium 4.2 (3.3-5.1) mmol/L Chloride 103 (96-108) mmol/L Carbon Dioxide 30 H (22-29) mmol/L Anion Gap 12 (12-20) BUN 11 (9-16) mg/dL Creatinine 0.68 (0.5-1.4) mg/dL Estim Creat Clear Calc 77.6 Estimated GFR > 60 Random Glucose 127 H (60-115) mg/dL Lactic Acid (0.5-2.0) mmol/L Calcium 10.1 D (8.4-10.2) mg/dL Total Bilirubin 0.4 (0.0-1.0) mg/dL AST 25 (5-31) U/L ALT 23 (0-31) U/L Alkaline Phosphatase 111 (39-117) U/L Total Protein 7.9 (6.5-8.0) g/dL Albumin 4.6 (3.5-5.0) g/dL Urine Color Urine Appearance Urine pH (5.0-8.0) Ur Specific [place] (1.005-1.025) Urine Protein (NEG-TRACE) MG/DL Urine Glucose (UA) (NEG) MG/DL Urine Ketones (NEG) MG/DL Urine Blood (NEG) Urine Nitrite (NEG) Ur Leukocyte Esterase (NEG) Urine RBC (0) /HPF Urine WBC (0-4) /HPF Ur Squamous Epith Cells /LPF Calcium Phosphate Cryst /LPF Urine Bacteria /LPF COVID-19 (KG) Negative (Negative) COVID-19 Clin Com See Note 09/13/21 09/13/21 Range/Units 02:45 03:03 WBC (4.8-10.8) X10*3/uL RBC (4.20-5.50) X10*6/uL Hgb (12.0-16.0) g/dl Hct (37.0-47.0) % MCV (80.0-98.0) fL MCH (27.0-33.0) pg MCHC (31.0-35.0) g/dl RDW (11.0-16.0) % Plt Count (160-400) X10*3/uL MPV (9.4-12.3) fL Immature Gran % (Auto) (0.0-0.4) % Neut % (Auto) (45-73) % Lymph % (Auto) (20-40) % [place] % (Auto) (2-11) % Eos % (Auto) (0-4) % Baso % (Auto) (0-2) % Lymph # (Auto) (1.2-4.9) X10*3/uL [place] # (Auto) (0.1-1.2) X10*3/uL Eos # (Auto) (0.0-0.4) X10*3/uL Baso # (Auto) (0.0-0.2) X10*3/uL Abs Immat Gran (auto) (0.00-0.03) X10*3/uL Absolute Neuts (auto) (2.0-8.3) x10*3/uL Absolute Nucleated RBC (0.0-0.012) X10*3/uL Nucleated RBC % (auto) (0.0-0.2) /100WBC Sodium (135-145) mmol/L Potassium (3.3-5.1) mmol/L Chloride (96-108) mmol/L Carbon Dioxide (22-29) mmol/L Anion Gap (12-20) BUN (9-16) mg/dL Creatinine (0.5-1.4) mg/dL Estim Creat Clear Calc Estimated GFR Random Glucose (60-115) mg/dL Lactic Acid 1.3 (0.5-2.0) mmol/L Calcium (8.4-10.2) mg/dL Total Bilirubin (0.0-1.0) mg/dL AST (5-31) U/L ALT (0-31) U/L Alkaline Phosphatase (39-117) U/L Total Protein (6.5-8.0) g/dL Albumin (3.5-5.0) g/dL Urine Color STRAW Urine Appearance CLEAR Urine pH 8.0 (5.0-8.0) Ur Specific [place] 1.010 (1.005-1.025) Urine Protein NEG (NEG-TRACE) MG/DL Urine Glucose (UA) NEG (NEG) MG/DL Urine Ketones NEG (NEG) MG/DL Urine Blood TRACE (NEG) Urine Nitrite NEG (NEG) Ur Leukocyte Esterase TRACE H (NEG) Urine RBC 1-4 (0) /HPF Urine WBC 0-2 (0-4) /HPF Ur Squamous Epith Cells TRACE /LPF Calcium Phosphate Cryst TRACE /LPF Urine Bacteria NONE /LPF COVID-19 (KG) (Negative) COVID-19 Clin Com Discharge Plan Discharge Clinical Impression: Ileus, Gastroparesis, Fibromyalgia Patient Disposition: Admitted As Inpatient Prescriptions: No Action (DME) cpap 5-20 cm H2O autoPAP See Rx Instructions .Route .MEDSUPPLY Qty: 1 0RF Rx Instructions: As directed cholecalciferol (vitamin D3) [Vitamin D3] 25 mcg (1,000 unit) tablet 25 mcg PO DAILY Qty: 30 11RF loratadine 10 mg tablet 10 mg PO DAILY 90 Days Qty: 90 3RF cranberry extract 500 mg capsule 500 mg PO DAILY Qty: 90 3RF calcium carbonate 500 mg calcium (1,250 mg) tablet 500 mg PO BID 30 Days Qty: 60 11RF aspirin 81 mg tablet,delayed release (DR/EC) 81 mg PO DAILY Qty: 90 0RF gemfibrozil 600 mg tablet 600 mg PO BID 90 Days Qty: 180 3RF ferrous sulfate 325 mg (65 mg iron) tablet,delayed release (DR/EC) 325 mg PO DAILY 90 Days Qty: 90 3RF lidocaine 5 % adhesive patch,medicated 1 patch topical DAILY Qty: 15 0RF Rx Instructions: leave on most painful area for up to 12 hrs nabumetone 500 mg tablet 500 mg PO BID PRN (Reason: pain (scale score 7-10)) Qty: 14 0RF docusate sodium 100 mg capsule 100 mg PO TID Qty: 90 6RF acetaminophen 500 mg tablet 1,000 mg PO BID PRN0RF Linzess 145 mcg capsule 145 mcg PO QAM Qty: 30 6RF famotidine [Pepcid] 40 mg tablet 40 mg PO BEDTIME 30 Days Qty: 30 6RF esomeprazole magnesium 40 mg capsule,delayed release(DR/EC) 40 mg PO DAILY Qty: 90 2RF metoclopramide HCl [Reglan] 10 mg tablet 10 mg PO .TIDAC 30 Days Qty: 90 6RF
[2021-09-13 02:56] LABS: Alanine Aminotransferase 23 U/L (0-31); Albumin Level 4.6 g/dL (3.5-5.0); Alkaline Phosphatase 111 U/L (39-117); Anion Gap 12 (12-20); Aspartate Amino Transferase 25 U/L (5-31); Bilirubin Total 0.4 mg/dL (0.0-1.0); Blood Urea Nitrogen 11 mg/dL (9-16); Calcium 10.1 mg/dL (8.4-10.2); Carbon Dioxide 30 mmol/L (22-29); Chloride 103 mmol/L (96-108); Creatinine Clr Calc Pharmacy 77.6; Estimated Glomerular Filt Rate > 60; Glucose Random 127 mg/dL (60-115); Potassium 4.2 mmol/L (3.3-5.1); Sodium 141 mmol/L (135-145); Total Protein 7.9 g/dL (6.5-8.0)
[2021-09-13 03:06] LABS: COVID-19 Test Negative (Negative)
[2021-09-13 03:12] LABS: Appearance Urine CLEAR; Color Urine STRAW; Glucose Urine UA NEG (NEG); Leukocyte Esterase Urine TRACE (NEG); Nitrite Urine NEG (NEG); UACC Culture Trigger YES; Urine Blood TRACE (NEG); Urine Ketones NEG (NEG); Urine Protein NEG (NEG-TRACE)
[2021-09-13 03:18] LABS: Lactic Acid 1.3 mmol/L (0.5-2.0)
[2021-09-13 03:23] LABS: Squamous Epithelial Cell Urine TRACE /LPF; WBC Urine 0-2 /HPF (0-4)
[2021-09-13 03:24] LABS: Calcium Phosphate Crystals Ur TRACE /LPF
[2021-09-13] MEDS: iohexoL 350 MG/ML 100 ML INFUS..BTL 85 ML IV (03:31)
--- NOTE | 2021-09-13 03:47 | PC.NURSE ---
I assumed care of Raquel upon her arrival to be d7. She arrives for evaluation of diffuse abdominal pain that started at home approximately 7-8 hours prior to arrival. She has remained alert, oriented x 3, calm and cooperative. She is primarily slovenian speaking and her daughter is at the bedside to assist with translation. Respirations are non-labored, no cyanosis, room air sat's WNL, she speaks in full sentences. She describes the abdominal pain as intermittent and mostly in the right and left upper abdomen with some radiation to her back. She admits to a past Hx of SBO, states her last bowel movement was today (09/12) at approximately 1500. She describes it as a good, normal bowel movement (via her daughter interpreting). She denies difficulty voiding. +nausea. No vomiting. IV access/labs obtained. Pt provided UA without difficulty. She has been to and from CT and is currently awaiting MD dispo. Pt and daughter verbalize an understanding of this.
[2021-09-13] MEDS: ondansetron HCL 4 MG/2 ML VIAL IVPUSH (04:00)
[2021-09-13] MEDS: HYDROmorphone HCl 0.5 MG/0.5 ML SYRINGE 0.25 MG IVPUSH ×2 (04:28→14:26)
--- NOTE | 2021-09-13 08:07 | PC.NURSE ---
pt is a/o x 3 no sob/ting noted skin pink warm dry speaks in full sentences. pt/daughter aware of plan of care for admission to hosp.
[2021-09-13 08:09] VITALS: BP 146/78; PULSE 68; RESP 16; TEMP 36.6; O2SAT 96
--- NOTE | 2021-09-13 08:30 | PM.IMHP ---
History of Present Illness Date of Service: 09/13/21 Chief Complaint: abd pain, distension 60F p[resented with abdominal pain and distension for one day. associated with nausea without vomiting, has history of gastroparesis on reglan, no history of DM. in ED CT abd showed large dilation of stomach, no transition point. pain relieved by opiates, no appetite, worse on movement. Review of Systems Review of Systems: Constitutional: Denies fever, denies Chills Eyes: denies blurry vision ENT: denies sore throat CVS: denies chest pain Respiratory: Denies dyspnea GI: abdominal pain : denies dysuria MSK: denies neck pain Skin: denies rash Neuro: denies specific motor weakness Psych: denies suicidal ideation Endocrine: denies heat/cold intolerance Hematologic: denies easy bleeding Allergy: denies hives PMFSH Medical History Allergic rhinitis Arthritis Carpal tunnel syndrome Dyspnea on exertion Elevated AST (SGOT) Epigastric pain Fibromyalgia H. pylori infection Hearing loss Hyperlipidemia Ingrown toenail of right foot Iron deficiency anemia Midline thoracic back pain Nausea Neuropathy Normocytic anemia Obesity (BMI 30-39.9) GRAYSON (obstructive sleep apnea) RUQ pain Small bowel obstruction Tendonitis Family History Father Heart disease Diabetes Hypertension Mother Diabetes Hypertension Arthritis Fibromyalgia Osteoporosis Surgical History Family history of lipoma History of History of carpal tunnel repair History of endoscopy History of laparoscopic cholecystectomy History of left breast biopsy History of temporal artery biopsy History of varicose vein stripping Social History Household Members: Spouse Housing: Apartment Alcohol intake: never Patient Tobacco Use Status: Never used Tobacco e-Cigarette/Vaping Use: Never Used Second Hand Smoke Exposure: No Use of substances other than those prescribed or required for medical reasons: No Advance Directives: No Patient : No service: No 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al status: disabled Meds Allergies Allergy/AdvReac Type Severity Reaction Status Date / Time Candie-PEG Allergy Intermediate rash Verified 09/10/21 13:22 octopus Allergy Intermediate HIVES Verified 09/10/21 13:22 pregabalin [From Lyrica] Allergy Intermediate LETHARGY, Verified 09/10/21 13:22 dizziness celecoxib [From Celebrex] AdvReac Intermediate PROBLEMS Verified 09/10/21 13:22 WITH THE LIVER dicyclomine AdvReac Mild stomach Verified 09/10/21 13:22 upset oxycodone [From Percocet] AdvReac Mild LETHARGY Verified 09/10/21 13:22 morphine AdvReac Unknown Verified 09/13/21 08:14 MANDARIN ORANGES Allergy Severe LIP Uncoded 09/10/21 13:22 SWELLING, HIVES PARMELEX Allergy Intermediate PROBLEMS Uncoded 09/10/21 13:22 WITH THE LIVER Active Medications: Current Medications Enoxaparin Sodium (Enoxaparin Sodium 40 Mg/0.4 Ml Syringe) 40 mg SUBCUT Q24H RYAN Dextrose/Sodium Chloride (D51/2ns) 1,000 mls @ 80 mls/hr IVCONT .[id number] [facility] Metoclopramide HCl (Metoclopramide Hcl 10 Mg/2 Ml Vial) 5 mg IVPUSH TID [facility] Pharmacy Consult (Consult Rx Perform Med Rec) 1 each MISCELLANE ONCE PRN PRN Reason: Consult order Sodium Chloride (0.9 % Sodium Chloride Flush 3 Ml Syringe) 3 ml IVFLUSH QSHIFT [facility] Home Medications Medication Instructions Recorded Confirmed Last Taken Type acetaminophen 500 mg tablet 1,000 mg PO BID PRN tab 01/08/21 08/28/21 Unknown History Physical Exam Vital Signs and Narrative: Vital Signs: Last Vital Signs Temp 97.8 F 09/13/21 08:09 Pulse 68 09/13/21 08:09 Resp 16 09/13/21 08:09 BP 146/78 H 09/13/21 08:09 Pulse Ox 96 09/13/21 08:09 BMI result Body Mass Index 29.0 General: in discomfort HEENT: atraumatic Neck: normal to visual inspection CVS: S1, S2, RRR Resp: CTA bilateral Chest: non tender GI: soft, tender, distended : no CVA tenderness Skin: no rashes Extremities: no edema Neuro: Oriented X3, grossly intact Psych: cooperative Results Labs CBC and Chem 7: 09/13/21 02:24 09/13/21 02:24 Labs: Laboratory Results - last 24 hr 0409/13/21 09/13/21 02:24 02:24 02:25 MCV 92.7 MCH 30.5 MCHC 32.9 RDW 12.5 Plt Count 337 MPV 8.9 L Immature Gran % (Auto) 2.3 H Neut % (Auto) 68.5 Lymph % (Auto) 19.8 L [place] % (Auto) 7.2 Eos % (Auto) 1.9 Baso % (Auto) 0.3 Lymph # (Auto) 1.8 [place] # (Auto) 0.6 Eos # (Auto) 0.2 Baso # (Auto) 0.0 Abs Immat Gran (auto) 0.20 H Absolute Neuts (auto) 6.1 Absolute Nucleated RBC 0.000 Nucleated RBC % (auto) 0.0 Anion Gap 12 Estim Creat Clear Calc 77.6 Estimated GFR > 60 Random Glucose 127 H Lactic Acid Calcium 10.1 D Total Bilirubin 0.4 AST 25 ALT 23 Alkaline Phosphatase 111 Total Protein 7.9 Albumin 4.6 Urine Color Urine Appearance Urine pH Ur Specific [place] Urine Protein Urine Glucose (UA) Urine Ketones Urine Blood Urine Nitrite Ur Leukocyte Esterase Urine RBC Urine WBC Ur Squamous Epith Cells Calcium Phosphate Cryst Urine Bacteria COVID-19 (KG) Negative COVID-19 Clin Com See Note 09/13/21 09/13/21 02:45 03:03 MCV MCH MCHC RDW Plt Count MPV Immature Gran % (Auto) Neut % (Auto) Lymph % (Auto) [place] % (Auto) Eos % (Auto) Baso % (Auto) Lymph # (Auto) [place] # (Auto) Eos # (Auto) Baso # (Auto) Abs Immat Gran (auto) Absolute Neuts (auto) Absolute Nucleated RBC Nucleated RBC % (auto) Anion Gap Estim Creat Clear Calc Estimated GFR Random Glucose Lactic Acid 1.3 Calcium Total Bilirubin AST ALT Alkaline Phosphatase Total Protein Albumin Urine Color STRAW Urine Appearance CLEAR Urine pH 8.0 Ur Specific [place] 1.010 Urine Protein NEG Urine Glucose (UA) NEG Urine Ketones NEG Urine Blood TRACE Urine Nitrite NEG Ur Leukocyte Esterase TRACE H Urine RBC 1-4 Urine WBC 0-2 Ur Squamous Epith Cells TRACE Calcium Phosphate Cryst TRACE Urine Bacteria NONE COVID-19 (KG) COVID-19 Clin Com Imaging Radiologist's Impressions: Impressions Abdomen/Pelvis CT 09/13/21 03:37 IMPRESSION: * There is dilatation of the stomach, duodenum and proximal jejunum which gradually transitions to normal caliber within the midabdomen. No evidence of mechanical obstruction. These findings are most suggestive of ileus or hypomotility. * Left colonic diverticulosis without evidence of diverticulitis. * Hepatic steatosis. Assessment and Plan (1) Ileus: Status: Acute (2) Gastroparesis: Status: Acute Plan 60F presented with abd pain. gastroparesis/ileus ngt, reglan, ivf, npo, pain control monitor lytes dvt prohplyaxis - lovenox full code patient with signifcant ileus requring NGT and close monitoring, expect atleast 2 midnight in hospital Quality Stroke Does the patient have a stroke diagnosis?: No VTE Prior VTE?: No VTE Risk Level:: Medical - moderate - high VTE Device Contraindication: Treatment Not Indicated VTE Drug Contraindication: N/A - Med Ordered
[2021-09-13] MEDS: Metoclopramide HCl 10 MG/2 ML VIAL 5 MG IVPUSH ×2 (10:49→18:26)
[2021-09-13] MEDS: Enoxaparin Sodium 40 MG/0.4 ML SYRINGE SUBCUT (10:50)
--- NOTE | 2021-09-13 11:07 | PHA.MEDREC ---
MED REC COMPLETE, NO ISSUES Pharmacy Consult ? Medication Reconciliation Pharmacy has completed the medication reconciliation.
[2021-09-13] MEDS: Dextrose 5 % and 0.45 % NaCl 1,000 ML 80 ML IVCONT ×2 (14:00→23:03)
--- NOTE | 2021-09-13 14:26 | MHC.CM.PN ---
Met with patient and executive chef in regards to discharge planning. Patient lives with her , ambulates independently and had no services prior to coming to the hospital. No services anticipated to be needed because patient is not homebound. PCP verified. Copy of HCP verified to be on file. Patient has not received any Covid vaccines. Patient's will transport her home when medically stable. Continue to monitor for d/c needs.
--- NOTE | 2021-09-13 14:54 | PC.NURSE ---
patient requesting pain meds, provided medication ordered PRN dilaudid, immediately started to vomit. patient linens changed, reports feeling improved after vomiting. large amount of paritally digested food
[2021-09-13] MEDS: 0.9 % Sodium Chloride Flush 3 ML SYRINGE IVFLUSH (15:15)
[2021-09-13 15:57] VITALS: BP 127/74; PULSE 79; RESP 16; TEMP 36.4; O2SAT 93
[2021-09-13 19:05] VITALS: BP 135/83; PULSE 96; RESP 18; TEMP 37.1; O2SAT 94
[2021-09-13 23:42] VITALS: BP 112/65; PULSE 89; RESP 16; O2SAT 93
[2021-09-14] VITALS (7 sets, daily range): BP systolic 104–119; BP diastolic 60–71; PULSE 78–93; RESP 15–18; TEMP 36.3–36.8; O2SAT 93–97; BMI 28.7
[2021-09-14] MEDS: HYDROmorphone HCl 0.5 MG/0.5 ML SYRINGE 0.25 MG IVPUSH (01:04)
[2021-09-14 06:46] LABS: Hematocrit 37.5 % (37.0-47.0); Hemoglobin 12.3 g/dl (12.0-16.0); Mean Corpuscular HGB Conc 32.8 g/dl (31.0-35.0); Mean Corpuscular Hemoglobin 30.1 pg (27.0-33.0); Mean Corpuscular Volume 91.7 fL (80.0-98.0); Platelet Count 345 X10*3/uL (160-400); Red Blood Count 4.09 X10*6/uL (4.20-5.50); Red Cell Distribution Width 12.6 % (11.0-16.0); White Blood Count 5.7 X10*3/uL (4.8-10.8)
[2021-09-14] MEDS: Dextrose 5 % and 0.45 % NaCl 1,000 ML 80 ML IVCONT ×2 (06:47→21:00)
[2021-09-14 07:01] LABS: Anion Gap 14 (12-20); Blood Urea Nitrogen 19 mg/dL (9-16); Calcium 9.5 mg/dL (8.4-10.2); Carbon Dioxide 28 mmol/L (22-29); Chloride 102 mmol/L (96-108); Creatinine Clr Calc Pharmacy 77.6; Estimated Glomerular Filt Rate > 60; Glucose Fasting 122 mg/dL (60-99); Potassium 3.6 mmol/L (3.3-5.1); Sodium 140 mmol/L (135-145)
--- NOTE | 2021-09-14 07:57 | PC.NURSE ---
called [facility] to give report awating a call back
--- NOTE | 2021-09-14 08:04 | PC.NURSE ---
report given to imc rn
[2021-09-14] MEDS: Metoclopramide HCl 10 MG/2 ML VIAL 5 MG IVPUSH ×3 (09:12→21:00)
[2021-09-14] MEDS: Enoxaparin Sodium 40 MG/0.4 ML SYRINGE SUBCUT (09:12)
--- NOTE | 2021-09-14 09:36 | HO.PM.IMPN ---
Subjective Subjective Date of Service: 09/14/21 Interval History: cc: abd pain interval history: much relief with NGT Cardiovascular Cardiovascular: Reports no additional cardiovascular complaints Respiratory Respiratory: Reports no additional respiratory complaints Physical Exam Vital Signs: Vital Signs: Last Vital Signs Temp 97.4 F 09/14/21 08:00 Pulse 80 09/14/21 08:00 Resp 18 09/14/21 08:00 BP 114/60 09/14/21 08:00 Pulse Ox 95 09/14/21 08:00 BMI result Body Mass Index 29.0 General: AO X 3, no acute distress, NGT in place Resp: CTA bilateral, no accessory muscles used CVS: S1,S2,RRR GI: soft, mildly tender, non distended Neuro: motor grossly intact, alert Psych: appropriate affect, appropriate insight Objective Data Active Medications Enoxaparin Sodium (Enoxaparin Sodium 40 Mg/0.4 Ml Syringe) 40 mg SUBCUT Q24H [facility] Last Admin: 09/13/21 10:50 Dose: 40 mg Documented by: TERESA Hydromorphone HCl (Hydromorphone Hcl 0.5 Mg/0.5 Ml Syringe) 0.25 mg IVPUSH Q4H PRN; Protocol PRN Reason: severe pain Last Admin: 09/14/21 01:04 Dose: 0.25 mg Documented by: MAUREEN Dextrose/Sodium Chloride (D51/2ns) 1,000 mls @ 80 mls/hr IVCONT .[id number] [facility] Last Admin: 09/14/21 06:47 Dose: 80 mls/hr Documented by: MAUREEN Metoclopramide HCl (Metoclopramide Hcl 10 Mg/2 Ml Vial) 5 mg IVPUSH TID [facility] Last Admin: 09/13/21 18:26 Dose: 5 mg Documented by: ALETA Pharmacy Consult (Consult Rx Perform Med Rec) 1 each MISCELLANE ONCE PRN PRN Reason: Consult order Sodium Chloride (0.9 % Sodium Chloride Flush 3 Ml Syringe) 3 ml IVFLUSH QSHIFT [facility] Last Admin: 09/14/21 02:28 Dose: Not Given Documented by: MAUREEN Non-Admin Reason: IV Running Labs CBC & Chem 7: 09/14/21 06:20 09/14/21 06:20 Labs: Laboratory Results - last 24 hr 09/14/21 09/14/21 06:20 06:20 MCV 91.7 MCH 30.1 MCHC 32.8 RDW 12.6 Plt Count 345 MPV 9.0 L Absolute Nucleated RBC 0.000 Nucleated RBC % (auto) 0.0 Anion Gap 14 Estim Creat Clear Calc 77.6 Estimated GFR > 60 Fasting Glucose 122 H Calcium 9.5 Microbiology Microbiology Results: Microbiology 09/13/21 02:45 Blood Culture - Preliminary Blood - Venous No growth after 24 hours. 09/13/21 02:45 Blood Culture - Preliminary Blood - Venous No growth after 24 hours. Assessment and Plan (1) Ileus: Status: Acute Plan 60F presented with abd pain. gastroparesis/ileus improved, but awaiting return of GI function continue ngt (likely dc tomorrow), reglan, ivf, npo (can have sips of liquids), pain control monitor lytes dvt prohplyaxis - lovenox full code reason for continued hospitalization: patient with signifcant ileus requring NGT and close monitoring, awaiting return of bowel function Quality Stroke Does the patient have a stroke diagnosis?: No VTE Prior VTE?: No VTE Risk Level:: Medical - moderate - high VTE Device Contraindication: Treatment Not Indicated VTE Drug Contraindication: N/A - Med Ordered
--- NOTE | 2021-09-14 15:35 | MHC.CM.PN ---
per rounds no expexted dc date
--- NOTE | 2021-09-14 15:37 | MHC.CM.PN ---
pt has an ng tube is on iv dilauded and reglan per malcolm anthony n o dc date at this time
[2021-09-14] MEDS: 0.9 % Sodium Chloride Flush 3 ML SYRINGE IVFLUSH (21:02)
[2021-09-15 03:28] VITALS: BP 102/55; PULSE 90; RESP 20; TEMP 36.8; O2SAT 93
[2021-09-15 06:14] LABS: Hematocrit 35.1 % (37.0-47.0); Hemoglobin 11.4 g/dl (12.0-16.0); Mean Corpuscular HGB Conc 32.5 g/dl (31.0-35.0); Mean Corpuscular Hemoglobin 30.4 pg (27.0-33.0); Mean Corpuscular Volume 93.6 fL (80.0-98.0); Mean Platelet Volume 9.1 fL (9.4-12.3); Platelet Count 313 X10*3/uL (160-400); Red Blood Count 3.75 X10*6/uL (4.20-5.50); Red Cell Distribution Width 12.6 % (11.0-16.0); White Blood Count 5.1 X10*3/uL (4.8-10.8)
[2021-09-15 06:43] LABS: Anion Gap 9 (12-20); Blood Urea Nitrogen 14 mg/dL (9-16); Calcium 8.7 mg/dL (8.4-10.2); Carbon Dioxide 33 mmol/L (22-29); Chloride 101 mmol/L (96-108); Creatinine Clr Calc Pharmacy 83.3; Estimated Glomerular Filt Rate > 60; Glucose Fasting 127 mg/dL (60-99); Potassium 3.3 mmol/L (3.3-5.1); Sodium 140 mmol/L (135-145)
[2021-09-15 07:20] VITALS: BP 104/56; PULSE 76; RESP 17; TEMP 36.2; O2SAT 94
[2021-09-15] MEDS: Metoclopramide HCl 10 MG/2 ML VIAL 5 MG IVPUSH ×3 (08:30→19:57)
[2021-09-15] MEDS: Enoxaparin Sodium 40 MG/0.4 ML SYRINGE SUBCUT (08:30)
--- NOTE | 2021-09-15 09:13 | HO.PM.IMPN ---
Subjective Subjective Date of Service: 09/15/21 Interval History: cc: abd pain, bloating interval history: overall improved, still with some discomfort Cardiovascular Cardiovascular: Reports no additional cardiovascular complaints Respiratory Respiratory: Reports no additional respiratory complaints Physical Exam Vital Signs: Vital Signs: Last Vital Signs Temp 97.1 F 09/15/21 07:20 Pulse 76 09/15/21 07:20 Resp 17 09/15/21 07:20 BP 104/56 L 09/15/21 07:20 Pulse Ox 94 09/15/21 07:20 BMI result Body Mass Index 28.7 General: AO X 3, no acute distress, NGT in place Resp:? CTA bilateral, no accessory muscles used CVS: S1,S2,RRR GI: soft, mildly tender, non distended Neuro:? motor grossly intact, alert Psych: appropriate affect, appropriate insight? Objective Data Active Medications Enoxaparin Sodium (Enoxaparin Sodium 40 Mg/0.4 Ml Syringe) 40 mg SUBCUT Q24H [facility] Last Admin: 09/15/21 08:30 Dose: 40 mg Documented by: MARIANGEL Hydromorphone HCl (Hydromorphone Hcl 0.5 Mg/0.5 Ml Syringe) 0.25 mg IVPUSH Q4H PRN; Protocol PRN Reason: severe pain Last Admin: 09/14/21 01:04 Dose: 0.25 mg Documented by: MAUREEN Dextrose/Sodium Chloride (D51/2ns) 1,000 mls @ 80 mls/hr IVCONT .[id number] [facility] Last Admin: 09/14/21 21:00 Dose: 80 mls/hr Documented by: JOSE Metoclopramide HCl (Metoclopramide Hcl 10 Mg/2 Ml Vial) 5 mg IVPUSH TID [facility] Last Admin: 09/15/21 08:30 Dose: 5 mg Documented by: MARIANGEL Pharmacy Consult (Consult Rx Perform Med Rec) 1 each MISCELLANE ONCE PRN PRN Reason: Consult order Sodium Chloride (0.9 % Sodium Chloride Flush 3 Ml Syringe) 3 ml IVFLUSH QSHIFT [facility] Last Admin: 09/15/21 08:31 Dose: Not Given Documented by: MARIANGEL Non-Admin Reason: IV Running Labs CBC & Chem 7: 09/15/21 05:23 09/15/21 05:23 Labs: Laboratory Results - last 24 hr 09/15/21 09/15/21 05:23 05:23 MCV 93.6 MCH 30.4 MCHC 32.5 RDW 12.6 Plt Count 313 MPV 9.1 L Absolute Nucleated RBC 0.000 Nucleated RBC % (auto) 0.0 Anion Gap 9 L Estim Creat Clear Calc 83.3 Estimated GFR > 60 Fasting Glucose 127 H Calcium 8.7 D Microbiology Microbiology Results: Microbiology 09/13/21 02:45 Blood Culture - Preliminary Blood - Venous No growth after 48 hours. 09/13/21 02:45 Blood Culture - Preliminary Blood - Venous No growth after 48 hours. 09/13/21 04:09 Urine Culture - Final Urine clean catch - Urine velazquez top Assessment and Plan (1) Ileus: Status: Acute Plan 60F presented with abd pain. gastroparesis/ileus improved, but still with some discomfort will cap NGT and monitor, check KUB continue reglan, ivf, npo (can have sips of liquids), pain control monitor lytes dvt prophylaxis - lovenox full code reason for continued hospitalization: patient with significant ileus requring NGT and close monitoring, awaiting return of bowel function Quality Stroke Does the patient have a stroke diagnosis?: No VTE Prior VTE?: No VTE Risk Level:: Medical - moderate - high VTE Device Contraindication: Treatment Not Indicated VTE Drug Contraindication: N/A - Med Ordered
[2021-09-15] MEDS: Dextrose 5 % and 0.45 % NaCl 1,000 ML 80 ML IVCONT ×2 (10:25→19:57)
[2021-09-15 11:21] VITALS: BP 103/56; PULSE 74; RESP 18; TEMP 36.8; O2SAT 94
[2021-09-15] MEDS: Potassium Chloride ER 20 MEQ TAB.ER.PRT 40 MEQ PO (14:55)
[2021-09-15 15:05] VITALS: BP 110/65; PULSE 78; RESP 18; TEMP 36.6; O2SAT 97
--- NOTE | 2021-09-15 18:18 | PC.NURSE ---
NG tube discontinued per Dr. Garcia. Pt tolerating full diet.
[2021-09-15 19:52] VITALS: BP 103/55; PULSE 87; RESP 19; TEMP 36.7; O2SAT 98
[2021-09-15 23:37] VITALS: BP 103/56; PULSE 53; RESP 16; TEMP 37.3; O2SAT 96
[2021-09-16 04:00] VITALS: BP 104/56; PULSE 74; RESP 20; TEMP 36.6; O2SAT 93
[2021-09-16 07:23] VITALS: BP 105/61; PULSE 77; RESP 18; TEMP 37.2; O2SAT 94
[2021-09-16 07:59] LABS: Hematocrit 32.3 % (37.0-47.0); Mean Corpuscular HGB Conc 34.1 g/dl (31.0-35.0); Mean Platelet Volume 8.7 fL (9.4-12.3); Platelet Count 272 X10*3/uL (160-400); Red Blood Count 3.55 X10*6/uL (4.20-5.50); Red Cell Distribution Width 12.2 % (11.0-16.0)
[2021-09-16 08:18] LABS: Anion Gap 10 (12-20); Blood Urea Nitrogen 5 mg/dL (9-16); Calcium 8.3 mg/dL (8.4-10.2); Carbon Dioxide 26 mmol/L (22-29); Chloride 105 mmol/L (96-108); Creatinine Clr Calc Pharmacy 92.1; Estimated Glomerular Filt Rate > 60; Glucose Fasting 117 mg/dL (60-99); Potassium 3.4 mmol/L (3.3-5.1); Sodium 138 mmol/L (135-145)
[2021-09-16] MEDS: Metoclopramide HCl 10 MG/2 ML VIAL 5 MG IVPUSH ×2 (09:00→14:33)
[2021-09-16] MEDS: Enoxaparin Sodium 40 MG/0.4 ML SYRINGE SUBCUT (09:00)
[2021-09-16] MEDS: Dextrose 5 % and 0.45 % NaCl 1,000 ML 80 ML IVCONT (09:01)
[2021-09-16 11:00] VITALS: BP 113/63; PULSE 73; RESP 18; TEMP 36.9; O2SAT 96
--- NOTE | 2021-09-16 13:03 | HO.PM.IMPN ---
Subjective Subjective Date of Service: 09/16/21 Interval History: cc: abd pain, bloating interval history: improving, tolerating liquids denies any vomiting episodes or abdominal pain Review of Systems Constitutional: Denies fever, denies Chills Eyes: denies blurry vision ENT: denies sore throat CVS: denies chest pain Respiratory: Denies dyspnea GI: abdominal pain : denies dysuria Neuro: denies specific motor weakness Psych: denies suicidal ideation Hematologic: denies easy bleeding Physical Exam Vital Signs: Vital Signs: Last Vital Signs Temp 98.4 F 09/16/21 11:00 Pulse 73 09/16/21 11:00 Resp 18 09/16/21 11:00 BP 113/63 09/16/21 11:00 Pulse Ox 96 09/16/21 11:00 BMI result Body Mass Index 28.7 Const: Other: Constitutional : Alert, oriented, not in distress Neck : Normal inspection, Supple Cardiovascular : RRR, S1 S2, no lower extremity edema Respiratory : Good bilateral air entry, no crackles, wheezes or rhonchi Gastrointestinal: soft, lax, Normal bowel sounds, Non tender Skin : Warm, Dry Neurological : Alert & oriented x3, No focal deficit Objective Data Active Medications Enoxaparin Sodium (Enoxaparin Sodium 40 Mg/0.4 Ml Syringe) 40 mg SUBCUT Q24H [facility] Last Admin: 09/16/21 09:00 Dose: 40 mg Documented by: RODY Hydromorphone HCl (Hydromorphone Hcl 0.5 Mg/0.5 Ml Syringe) 0.25 mg IVPUSH Q4H PRN; Protocol PRN Reason: severe pain Last Admin: 09/14/21 01:04 Dose: 0.25 mg Documented by: MAUREEN Dextrose/Sodium Chloride (D51/2ns) 1,000 mls @ 80 mls/hr IVCONT .[id number] [facility] Last Admin: 09/16/21 09:01 Dose: 80 mls/hr Documented by: RODY Metoclopramide HCl (Metoclopramide Hcl 10 Mg/2 Ml Vial) 5 mg IVPUSH TID [facility] Last Admin: 09/16/21 09:00 Dose: 5 mg Documented by: RODY Pharmacy Consult (Consult Rx Perform Med Rec) 1 each MISCELLANE ONCE PRN PRN Reason: Consult order Sodium Chloride (0.9 % Sodium Chloride Flush 3 Ml Syringe) 3 ml IVFLUSH QSHIFT [facility] Last Admin: 09/16/21 07:21 Dose: Not Given Documented by: RODY Non-Admin Reason: IV Running Labs CBC & Chem 7: 09/16/21 07:50 09/16/21 07:50 Labs: Laboratory Results - last 24 hr 09/16/21 09/16/21 07:50 07:50 MCV 91.0 MCH 31.0 MCHC 34.1 RDW 12.2 Plt Count 272 MPV 8.7 L Absolute Nucleated RBC 0.000 Nucleated RBC % (auto) 0.0 Anion Gap 10 L Estim Creat Clear Calc 92.1 Estimated GFR > 60 Fasting Glucose 117 H Calcium 8.3 L Assessment and Plan (1) Ileus: Status: Acute (2) Gastroparesis: Status: Acute Plan 60F presented with abd pain. gastroparesis/ileus improved, still having some discomfort NG tube removed Improved KUB advanced diet to regular continue reglan To discontinue ivf pain control monitor lytes dvt prophylaxis - lovenox reason for continued hospitalization: patient with significant ileus post removal of NGT and starting diet, awaiting return of bowel function Quality Stroke Does the patient have a stroke diagnosis?: No VTE Prior VTE?: No VTE Risk Level:: Medical - moderate - high VTE Device Contraindication: Treatment Not Indicated VTE Drug Contraindication: N/A - Med Ordered
[2021-09-16 15:02] VITALS: BP 108/57; PULSE 75; RESP 18; TEMP 37.1; O2SAT 98
--- NOTE | 2021-09-16 15:57 | MHC.CM.PN ---
per rounds dc is expected for
[2021-09-16 19:12] VITALS: BP 134/65; PULSE 78; RESP 16; TEMP 36.9; O2SAT 96
[2021-09-16 23:05] VITALS: BP 122/65; PULSE 79; RESP 18; TEMP 36.4; O2SAT 98
[2021-09-17 03:17] VITALS: BP 102/59; PULSE 65; RESP 16; TEMP 36.6; O2SAT 95
[2021-09-17 06:46] LABS: Hematocrit 32.3 % (37.0-47.0); Hemoglobin 10.6 g/dl (12.0-16.0); Mean Corpuscular HGB Conc 32.8 g/dl (31.0-35.0); Mean Corpuscular Hemoglobin 30.3 pg (27.0-33.0); Mean Corpuscular Volume 92.3 fL (80.0-98.0); Mean Platelet Volume 9.1 fL (9.4-12.3); Platelet Count 300 X10*3/uL (160-400); Red Cell Distribution Width 12.2 % (11.0-16.0); White Blood Count 6.5 X10*3/uL (4.8-10.8)
[2021-09-17 07:06] LABS: Anion Gap 13 (12-20); Blood Urea Nitrogen 7 mg/dL (9-16); Calcium 8.5 mg/dL (8.4-10.2); Carbon Dioxide 26 mmol/L (22-29); Chloride 107 mmol/L (96-108); Creatinine Clr Calc Pharmacy 95.4; Estimated Glomerular Filt Rate > 60; Glucose Random 107 mg/dL (60-115); Potassium 3.7 mmol/L (3.3-5.1); Sodium 142 mmol/L (135-145)
[2021-09-17 07:27] VITALS: BP 114/56; PULSE 69; RESP 18; TEMP 36.6; O2SAT 97
[2021-09-17] MEDS: Enoxaparin Sodium 40 MG/0.4 ML SYRINGE SUBCUT (09:01)
--- NOTE | 2021-09-17 10:38 | PM.DS ---
DS: Providers Provider Date of Service: 09/17/21 Date of admission: 09/13/21 08:27 Primary care physician: Julia Oviedo MD DS: Diagnosis Discharge Diagnosis (1) Ileus: Status: Acute (2) Gastroparesis: Status: Acute DS: Summary Hospital Course Hospital Course: Admission note HPI 60F p[resented with abdominal pain and distension for one day. associated with nausea without vomiting, has history of gastroparesis on reglan, no history of DM. in ED CT abd showed large dilation of stomach, no transition point. pain relieved by opiates, no appetite, worse on movement. Hospital course The patient was admitted to the hospital for treatment of abdominal pain as CT scan of the abdomen showed an evidence of Ileus with significant history of gastroparesis. treated with IV fluids as NG tube was placed for the 1st 2 days before being removed as her symptoms and pain improved. Diet was advanced and the patient tolerated it well with no reported pain, nausea or vomiting. Plan to be discharged home to continue with home dose Reglan and to follow-up with Gastroenterology as outpatient. Time Spent with Patient Time attestation: Total time spent providing and/or coordinating discharge services: Discharge coordination time: Greater than 30 minutes Quality: Safe Use of Opioids Does Pt have an Active Cancer Diagnosis on the Problem List?: No Quality: Stroke Does the patient have a stroke diagnosis?: No Physical Exam Vital Signs: Vital Signs: Last Vital Signs Temp 97.9 F 09/17/21 07:27 Pulse 69 09/17/21 07:27 Resp 18 09/17/21 07:27 BP 114/56 L 09/17/21 07:27 Pulse Ox 97 09/17/21 07:27 BMI result Body Mass Index 28.7 Const: Other: Constitutional : Alert, oriented, not in distress Neck : Normal inspection, Supple Cardiovascular : RRR, S1 S2, no lower extremity edema Respiratory : Good bilateral air entry, no crackles, wheezes or rhonchi Gastrointestinal: soft, lax, Normal bowel sounds, Non tender Skin : Warm, Dry Neurological : Alert & oriented x3, No focal deficit DS: Data Data Completed and Pending Labs on day of discharge: Laboratory Results - last 24 hr 09/17/21 09/17/21 06:03 06:03 WBC 6.5 RBC 3.50 L Hgb 10.6 L Hct 32.3 L MCV 92.3 MCH 30.3 MCHC 32.8 RDW 12.2 Plt Count 300 MPV 9.1 L Absolute Nucleated RBC 0.000 Nucleated RBC % (auto) 0.0 Sodium 142 Potassium 3.7 Chloride 107 Carbon Dioxide 26 Anion Gap 13 BUN 7 L Creatinine 0.55 Estim Creat Clear Calc 95.4 Estimated GFR > 60 Random Glucose 107 Calcium 8.5 Preliminary micro results at discharge 09/13/21 02:45 Blood Culture - Preliminary Blood - Venous No growth after 48 hours. 09/13/21 02:45 Blood Culture - Preliminary Blood - Venous No growth after [address] scan - chest: Radiologist's impression: ITS Impressions Abdomen/Pelvis CT 09/13/21 03:37 IMPRESSION: * There is dilatation of the stomach, duodenum and proximal jejunum which gradually transitions to normal caliber within the midabdomen. No evidence of mechanical obstruction. These findings are most suggestive of ileus or hypomotility. * Left colonic diverticulosis without evidence of diverticulitis. * Hepatic steatosis. Chest X-Ray 09/13/21 11:32 IMPRESSION: Enteric tube terminates below the level of the diaphragm. KUB X-Ray 09/15/21 09:55 IMPRESSION: Nasogastric tube in the stomach. No dilated loops of bowel. Discharge Plan Discharge Patient Disposition: Home, Self-Care Discharge Diagnosis: gastroparesis Referrals: Julia Green MD [Primary Care Provider] - 1 Week Discharge Medications: Continued (DME) cpap 5-20 cm H2O autoPAP See Rx Instructions .Route .MEDSUPPLY Qty: 1 0RF Rx Instructions: As directed cholecalciferol (vitamin D3) [Vitamin D3] 25 mcg (1,000 unit) tablet 25 mcg PO DAILY Qty: 30 11RF loratadine 10 mg tablet 10 mg PO DAILY 90 Days Qty: 90 3RF cranberry extract 500 mg capsule 500 mg PO DAILY Qty: 90 3RF calcium carbonate 500 mg calcium (1,250 mg) tablet 500 mg PO BID 30 Days Qty: 60 11RF aspirin 81 mg tablet,delayed release (DR/EC) 81 mg PO DAILY Qty: 90 0RF gemfibrozil 600 mg tablet 600 mg PO BID 90 Days Qty: 180 3RF ferrous sulfate 325 mg (65 mg iron) tablet,delayed release (DR/EC) 325 mg PO DAILY 90 Days Qty: 90 3RF metoclopramide HCl [Reglan] 10 mg tablet 10 mg PO TIDAC 0RF Linzess 145 mcg capsule 145 mcg PO DAILY 0RF lidocaine 5 % adhesive patch,medicated 1 patch topical DAILY Qty: 15 0RF Rx Instructions: leave on most painful area for up to 12 hrs docusate sodium 100 mg capsule 100 mg PO TID Qty: 90 6RF acetaminophen 500 mg tablet 1,000 mg PO BID PRN (Reason: Pain (Scale Score 1-3)) 0RF famotidine [Pepcid] 40 mg tablet 40 mg PO BEDTIME 30 Days Qty: 30 6RF esomeprazole magnesium 40 mg capsule,delayed release(DR/EC) 40 mg PO DAILY Qty: 90 2RF Discharge Orders: Discharge Order (Routine); Ordered 09/17/21 Ordered By: Hanny Peters Diet: advance to usual diet Activity on Discharge: As tolerated Stand Alone Forms: Patient Portal Discharge page Care Plan Goals: Read below Health Concerns: Read below Plan of Treatment: Read below Assessment: you were admitted to the hospital for treatment of nausea and vomiting with decreased oral intake believed to be secondary to ileus and gastroparesis. Treated with IV fluid and nausea medications with good response over the course of hospital stay as your diet was advanced with good tolerance. Advance your diet at home slowly over the next few days To use Reglan as prescribed To follow-up with Gastroenterology as outpatient.
--- NOTE | 2021-09-17 11:12 | MHC.CM.PN ---
PT TO DC HOME TODAY WITH NO SERVICES FAMILY TO TRANSPORT
== END 2021-09-17 13:05 | disposition home or self-care (01) | DRG 254 ==
LOC: HO.ED 09-13 04:19 → HO.EDOVER 09-13 08:45 → HO.IMC 09-14 07:12
PROVIDERS: Admitting Provider Internal Medicine; Emergency Provider Student in an Organized Health Care Education/Training Program; PCP Internal Medicine; Visit Provider Student in an Organized Health Care Education/Training Program
DX: K31.84 Gastroparesis (principal); K56.7 Ileus, unspecified; M79.7 Fibromyalgia; Z20.822 Contact with and (suspected) exposure to COVID-19; Z88.5 Allergy status to narcotic agent; Z79.82 Long term (current) use of aspirin; Z88.6 Allergy status to analgesic agent; Z79.899 Other long term (current) drug therapy
CPT/HCPCS: 36415; 71045; 74018; 74177; 80048; 80053; 81001; 83605; 85025; 85027; 87040; 87086; 87635; 96374; 96375; 99285; J1170; J1650; J2405; J2765; Q9967

== ENCOUNTER → 2021-09-30 13:43 | Outpatient (BNVA) | payer OTHER, SELFPAY | PROVIDERS: PCP Internal Medicine; Visit Provider Internal Medicine | DX: G47.33 Obstructive sleep apnea (adult) (pediatric) (principal) | CPT/HCPCS: 99212 ==

== ENCOUNTER 2021-10-09 12:00 | Outpatient (REF) | payer OTHER, SELFPAY ==
--- NOTE | ~2021-10-09 | MM_ITS ---
EXAMINATION: MM SCREENING DIGITAL BREAST TOMOSYNTHESIS, BILATERAL CLINICAL INFORMATION: Screening. Asymptomatic. The lifetime risk of breast cancer based on the Tyrer-Cuzick Model is 11%. COMPARISON: Mammography: 09/22/2020, 02/21/2019, 01/23/2018 TECHNIQUE: Digital breast tomosynthesis is performed in both the craniocaudal and mediolateral oblique views along with computer-aided detection (CAD). Synthesized 2D images are generated from the tomosynthesis. FINDINGS: There are scattered areas of fibroglandular density (ACR BI-RADS breast composition Category b). There are no significant masses, abnormal calcifications, or other abnormalities. Minor parenchymal asymmetry anterior left breast is similar to prior studies. Again, there is biopsy clip marker mid upper outer left breast with some stable adjacent punctate calcifications. No significant changes. MM/MM tomosynthesis screening BI IMPRESSION: No mammographic evidence of malignancy. ASSESSMENT: BI-RADS 2: Benign RECOMMENDATION: Routine annual mammography screening. This patient's information was entered into a reminder system with a target due date for their next mammogram.
--- NOTE | ~2021-10-09 | MM_ITS ---
EXAMINATION: BONE DENSITOMETRY CLINICAL INDICATION: Menopause. COMPARISON: Previous BD dated 02/26/2016 and baseline BD dated 09/09/2006. TECHNIQUE: Using a [facility] DXA System (software version: 13.1) manufactured by [employer], dual-energy x-ray absorptiometry was performed of the lumbar spine and left hip. The images are of good technical quality. Summary results are attached. FINDINGS: AP SPINE L1-L4: Current: BMD 0.987 g/cm2, Z-score -0.4, T-score -1.6, osteopenia, 2.5% decrease from previous, 6.9% decrease from baseline (<5% change is not significant). Prior: BMD 1.012 g/cm2. Baseline: BMD 1.060 g/cm2. LEFT FEMUR, NECK: Current: BMD 0.790 g/cm2, Z-score -0.6, T-score -1.8, osteopenia. Prior: BMD 0.814 g/cm2. Baseline: BMD 0.886 g/cm2. LEFT FEMUR, TOTAL: Current: BMD 0.874 g/cm2, Z-score -0.2, T-score -1.1, osteopenia, 1.8% decrease from previous, 6.8% decrease from baseline (<5% change is not significant). Prior: BMD 0.890 g/cm2. Baseline: BMD 0.938 g/cm2. IDENTIFIED RISK FACTORS: Early menopause, menopause, rheumatoid arthritis, secondary osteoporosis. HISTORY OF FRACTURE: None listed. MEDICATIONS: Calcium, vitamin D. MM/XR DEXA axial skeleton IMPRESSION: 1. DIAGNOSIS: Osteopenia based on the lowest T-score value of -1.8 in the femoral neck applying World Health Organization criteria. 2. 10-YEAR FRACTURE RISK PREDICTION, FRAX: Major osteoporotic fracture (clinical spine, forearm, hip or shoulder) 6.5%. Hip fracture 0.8%. 3. Treatment Recommendations: NOF guidelines recommend consideration for treatment in postmenopausal women and men age 50 and older presenting with the following: -A hip or vertebral (clinical or morphometric) fracture. -T-score less than or equal to -2.5 at the femoral neck or spine after appropriate evaluation to exclude secondary causes. -Low bone mass at the hip or spine and a 10-year fracture probability by FRAX of greater than or equal to 3% for hip fracture or greater than or equal to 20% for major osteoporotic fracture based on the [place] adapted WHO algorithm. 4. Other Recommendations: All treatment decisions require clinical judgment and consideration of individual patient factors, including patient preferences, comorbidities, previous drug use, risk factors not captured in the FRAX model (e.g. frailty, falls, vitamin D deficiency, increased bone turnover, interval significant decline in bone density) and possible under or overestimation of fracture risk by FRAX. Additional medical evaluation for secondary cause of low bone mineral density may be appropriate. FUTURE SCAN RECOMMENDATION: People with diagnosed cases of osteoporosis or at high risk for fracture should have regular bone mineral density tests. For patients eligible for Medicare, routine testing is allowed once every 2 years. The testing frequency can be increased to one year for patients who have rapidly progressing disease, those who are receiving or discontinuing medical therapy to restore bone mass, or have additional risk factors.
== END 2021-10-09 12:01 | disposition home or self-care (01) ==
LOC: HO.MAMMO 12:00
PROVIDERS: Visit Provider Internal Medicine
DX: Z12.31 Encounter for screening mammogram for malignant neoplasm of breast (principal); Z13.820 Encounter for screening for osteoporosis; Z78.0 Asymptomatic menopausal state; M85.80 Other specified disorders of bone density and structure, unspecified site
CPT/HCPCS: 77063; 77067; 77080

== ENCOUNTER 2021-10-13 14:20 | Outpatient (REF) | payer OTHER, SELFPAY | END 2021-10-13 14:21 | disposition home or self-care (01) | LOC: HO.HAP 14:20 | PROVIDERS: Visit Provider Internal Medicine | DX: Z46.1 Encounter for fitting and adjustment of hearing aid (principal); H90.6 Mixed conductive and sensorineural hearing loss, bilateral | CPT/HCPCS: V5266 ==

== ENCOUNTER 2021-10-14 10:35 | Outpatient (REF) | payer OTHER, SELFPAY ==
[2021-10-14 10:45] LABS: MANUAL DIFF FLAG NO
[2021-10-14 11:08] LABS: Basophils Absolute Auto 0.1 X10*3/uL (0.0-0.2); Basophils Percent Auto 0.8 % (0-2); Eosinophils Absolute Auto 0.3 X10*3/uL (0.0-0.4); Eosinophils Percent Auto 3.9 % (0-4); Hematocrit 35.5 % (37.0-47.0); Hemoglobin 11.4 g/dl (12.0-16.0); Imm Gran Abs Auto 0.32 X10*3/uL (0.00-0.03); Imm Gran Pct Auto 4.4 % (0.0-0.4); Lymphocytes Absolute Auto 2.2 X10*3/uL (1.2-4.9); Lymphocytes Percent Auto 29.9 % (20-40); Mean Corpuscular HGB Conc 32.1 g/dl (31.0-35.0); Mean Corpuscular Hemoglobin 30.2 pg (27.0-33.0); Mean Corpuscular Volume 93.9 fL (80.0-98.0); Mean Platelet Volume 8.9 fL (9.4-12.3); Monocytes Absolute Auto 0.6 X10*3/uL (0.1-1.2); Monocytes Percent Auto 7.9 % (2-11); Neutrophils Absolute Auto 3.9 x10*3/uL (2.0-8.3); Neutrophils Percent Auto 53.1 % (45-73); Platelet Count 316 X10*3/uL (160-400); Red Blood Count 3.78 X10*6/uL (4.20-5.50); Red Cell Distribution Width 12.6 % (11.0-16.0); White Blood Count 7.3 X10*3/uL (4.8-10.8)
[2021-10-14 11:54] LABS: Alanine Aminotransferase 22 U/L (0-31); Albumin Level 4.2 g/dL (3.5-5.0); Alkaline Phosphatase 99 U/L (39-117); Anion Gap 12 (12-20); Aspartate Amino Transferase 27 U/L (5-31); Bilirubin Total 0.4 mg/dL (0.0-1.0); Blood Urea Nitrogen 17 mg/dL (9-16); Calcium 9.4 mg/dL (8.4-10.2); Carbon Dioxide 27 mmol/L (22-29); Chloride 105 mmol/L (96-108); Cholesterol 208 mg/dL; Estimated Glomerular Filt Rate > 60; Glucose Fasting 106 mg/dL (60-99); HDL Cholesterol 47 mg/dL; Iron 70 mcg/dL (30-160); LDL Cholesterol Calculated 139 mg/dl; Magnesium 1.9 mg/dL (1.6-2.6); Percent Iron Saturation 25 % (15-50); Potassium 4.3 mmol/L (3.3-5.1); Sodium 140 mmol/L (135-145); Total Iron Binding Capacity 281 mcg/dL (228-428); Total Protein 7.2 g/dL (6.5-8.0); Triglycerides 112 mg/dL; Unsaturated Iron Binding 211 ug/dL
[2021-10-14 12:06] LABS: Vitamin D 25-OH Total 43.4 ng/mL (>30)
[2021-10-14 12:28] LABS: Vitamin B12 461 pg/mL (200-900)
== END 2021-10-14 10:36 | disposition home or self-care (01) ==
LOC: HO.LAB 10:35
PROVIDERS: PCP Internal Medicine; Visit Provider Internal Medicine
DX: Z00.00 Encounter for general adult medical examination without abnormal findings (principal); R25.2 Cramp and spasm; D64.9 Anemia, unspecified; E55.9 Vitamin D deficiency, unspecified
CPT/HCPCS: 36415; 80053; 80061; 82306; 82607; 82746; 83540; 83735; 85025

== ENCOUNTER → 2021-12-29 13:46 | Outpatient (BNVA) | payer OTHER, SELFPAY | PROVIDERS: PCP Internal Medicine; Visit Provider Nurse Practitioner | DX: K21.9 Gastro-esophageal reflux disease without esophagitis (principal); K59.04 Chronic idiopathic constipation; K31.84 Gastroparesis; K76.0 Fatty (change of) liver, not elsewhere classified; Z79.899 Other long term (current) drug therapy | CPT/HCPCS: 99212 ==

== ENCOUNTER → 2022-04-01 15:10 | Outpatient (BNVA) | payer OTHER, SELFPAY | PROVIDERS: PCP Internal Medicine; Visit Provider Internal Medicine | DX: G47.33 Obstructive sleep apnea (adult) (pediatric) (principal); J30.9 Allergic rhinitis, unspecified | CPT/HCPCS: 99212 ==

== ENCOUNTER 2022-05-26 09:39 | Outpatient (REF) | payer OTHER, SELFPAY ==
[2022-05-26 09:59] LABS: MANUAL DIFF FLAG NO
[2022-05-26 10:21] LABS: Basophils Absolute Auto 0.1 X10*3/uL (0.0-0.2); Basophils Percent Auto 0.9 % (0-2); Eosinophils Absolute Auto 0.2 X10*3/uL (0.0-0.4); Eosinophils Percent Auto 2.3 % (0-4); Hematocrit 35.5 % (37.0-47.0); Hemoglobin 11.9 g/dl (12.0-16.0); Imm Gran Pct Auto 4.3 % (0.0-0.4); Lymphocytes Absolute Auto 2.3 X10*3/uL (1.2-4.9); Mean Corpuscular HGB Conc 33.5 g/dl (31.0-35.0); Mean Corpuscular Hemoglobin 31.2 pg (27.0-33.0); Mean Corpuscular Volume 93.2 fL (80.0-98.0); Mean Platelet Volume 8.9 fL (9.4-12.3); Monocytes Absolute Auto 0.7 X10*3/uL (0.1-1.2); Monocytes Percent Auto 9.2 % (2-11); Neutrophils Absolute Auto 3.6 x10*3/uL (2.0-8.3); Neutrophils Percent Auto 50.3 % (45-73); Platelet Count 331 X10*3/uL (160-400); Red Blood Count 3.81 X10*6/uL (4.20-5.50); Red Cell Distribution Width 12.5 % (11.0-16.0)
[2022-05-26 16:58] LABS: Alanine Aminotransferase 16 U/L (0-31); Albumin Level 4.2 g/dL (3.5-5.0); Alkaline Phosphatase 110 U/L (39-117); Anion Gap 13 (12-20); Aspartate Amino Transferase 18 U/L (5-31); Bilirubin Total 0.4 mg/dL (0.0-1.0); Blood Urea Nitrogen 17 mg/dL (9-16); Calcium 9.6 mg/dL (8.4-10.2); Carbon Dioxide 27 mmol/L (22-29); Chloride 105 mmol/L (96-108); Cholesterol 193 mg/dL; Estimated Glomerular Filt Rate > 60; Glucose Fasting 101 mg/dL (60-99); HDL Cholesterol 49 mg/dL; Iron 70 mcg/dL (30-160); LDL Cholesterol Calculated 124 mg/dl; Percent Iron Saturation 27 % (15-50); Potassium 4.2 mmol/L (3.3-5.1); Sodium 141 mmol/L (135-145); Total Iron Binding Capacity 256 mcg/dL (228-428); Total Protein 6.7 g/dL (6.5-8.0); Triglycerides 104 mg/dL; Unsaturated Iron Binding 186 ug/dL; Vitamin D 25-OH Total 43.6 ng/mL (>30)
== END 2022-05-26 09:40 | disposition home or self-care (01) ==
LOC: HO.LAB 09:39
PROVIDERS: PCP Internal Medicine; Visit Provider Internal Medicine
DX: E55.9 Vitamin D deficiency, unspecified (principal); E78.5 Hyperlipidemia, unspecified; D64.9 Anemia, unspecified; K21.9 Gastro-esophageal reflux disease without esophagitis
CPT/HCPCS: 36415; 80053; 80061; 82306; 83540; 85025

== ENCOUNTER → 2022-06-09 15:01 | Outpatient (BNVA) | payer OTHER, SELFPAY | PROVIDERS: PCP Internal Medicine; Visit Provider Internal Medicine | DX: G47.33 Obstructive sleep apnea (adult) (pediatric) (principal); J30.9 Allergic rhinitis, unspecified; R06.00 Dyspnea, unspecified; Z99.89 Dependence on other enabling machines and devices | CPT/HCPCS: 99212 ==

== ENCOUNTER 2022-07-05 08:26 | Outpatient (REF) | payer OTHER, SELFPAY ==
--- NOTE | ~2022-07-05 | FL_ITS ---
EXAMINATION: FL BARIUM SWALLOW CLINICAL INFORMATION: Dysphagia in proximal esophagus, solids and liquids. COMPARISON: None TECHNIQUE: Barium swallow examination is performed using fluoroscopic evaluation in addition to multiple fluoroscopic spot views. The patient is imaged both upright and prone and using both thick and thin sulfate along with effervescent granules. Fluoroscopy time: 1.1 minutes DAP: 6.250 Gycm2 Images: 54 FINDINGS: Following oral administration of thick barium, barium coated turkey in upright view there is normal oral mastication of solid food with normal propagation of bolus from the oral cavity through the pharynx, esophagus into stomach without any evidence of obstruction, narrowing or stricture. On oral administration of barium tablet there is spontaneous passage through the pharynx, esophagus into stomach without obstruction. On placing patient prone lying and oral administration of thin barium there is good esophageal distention without intrinsic or extrinsic impression. There is no gastroesophageal reflux in supine view. There are surgical abhi in the right upper quadrant from previous cholecystectomy. FL/FL barium swallow IMPRESSION: Unremarkable barium swallow exam.
== END 2022-07-05 08:27 | disposition home or self-care (01) ==
LOC: HO.XRAY 08:26
PROVIDERS: PCP Internal Medicine; Visit Provider Internal Medicine
DX: R13.10 Dysphagia, unspecified (principal)
CPT/HCPCS: 74220

== ENCOUNTER 2022-07-13 14:15 | Outpatient (REF) | payer OTHER, SELFPAY | END 2022-07-13 14:16 | disposition home or self-care (01) | LOC: HO.HAP 14:15 | PROVIDERS: Visit Provider Internal Medicine | DX: Z46.1 Encounter for fitting and adjustment of hearing aid (principal); H90.6 Mixed conductive and sensorineural hearing loss, bilateral | CPT/HCPCS: V5266 ==

== ENCOUNTER 2022-07-22 13:41 | Outpatient (REF) | payer OTHER, SELFPAY ==
[2022-07-22 15:41] LABS: Alanine Aminotransferase 19 U/L (0-31); Alkaline Phosphatase 86 U/L (39-117); Anion Gap 13 (12-20); Aspartate Amino Transferase 22 U/L (5-31); Bilirubin Total 0.5 mg/dL (0.0-1.0); Blood Urea Nitrogen 11 mg/dL (9-16); Calcium 9.2 mg/dL (8.4-10.2); Carbon Dioxide 29 mmol/L (22-29); Chloride 105 mmol/L (96-108); Estimated Glomerular Filt Rate > 60; Glucose Random 82 mg/dL (60-115); Potassium 4.2 mmol/L (3.3-5.1); Sodium 143 mmol/L (135-145); Total Protein 6.5 g/dL (6.5-8.0)
[2022-07-26 13:48] LABS: Alpha Fetoprotein 3.5 ng/mL
== END 2022-07-22 13:42 | disposition home or self-care (01) ==
LOC: HO.LAB 13:41
PROVIDERS: PCP Internal Medicine; Referring Provider Internal Medicine; Visit Provider Nurse Practitioner
DX: Z01.818 Encounter for other preprocedural examination (principal); R13.10 Dysphagia, unspecified; K76.0 Fatty (change of) liver, not elsewhere classified
CPT/HCPCS: 36415; 80053; 82105; 99212

== ENCOUNTER 2022-08-10 13:47 | Outpatient (REF) | payer OTHER, SELFPAY ==
--- NOTE | 2022-08-10 16:08 | MHC.AU.HA1 ---
Hearing Aid Evaluation Date of Visit: 08/10/22 English Teacher Used: Danish- In Person (daughter) Historical Information: Description of Hearing: Audiogram from [facility] dated 03/16/2022 reveals a moderately-severe mixed hearing loss in both ears with good WRS bilaterally. The patient has bilateral TM perforations, for which she is followed by Dr. Copeland (ENT). He provided signed medical clearance for today's consultation, dated 07/29/2022. Both audiogram and signed medical clearance are in the patient's chart. Current personal amplification information, if applicable: The patient wears a pair of Phonak Bolero B50-P hearing aids dispensed on 10/18/2016. Summary: The patient's current 5+ year old hearing aids are becoming intermittent. The patient states that even with fresh, new batteries the hearing aids turn off randomly. She also finds that her current ear molds (canal style) are popping out of her ears. We discussed new hearing aids and ear molds. Patient and daughter agreed. I will order a new pair of Phonak Bolero M50-M 13 (P7) hearing aids with canal lock style molds for better retention. Impressions were taken bilaterally without incident. I did re-program the patient's current hearing aids to her most recent audiogram and re-tubed her current ear molds. She noted improved volume and sound in office and was happy with today's visit. We will reach out to her for scheduling the dispense once all items are received in office. Hearing Aid Prescription: Based on the individual?s shared listening needs, communication environments, dexterity, desire for connectivity, and personal preferences, the following prescription for amplification has been made: Right ear: Make, Model, Color: Phonak Bolero M50-M P7 Battery Size: 13 Manufacturing Executive/Slim Tube: Type of Earmold/Dome/CShell/SlimTip: Canal lock Left ear: Left ear prescription to be same as Right Hearing Aid above: Make, Model, Color: Phonak Bolero M50-M P7 Battery Size: 13 Manufacturing Executive/Slim Tube: Type of Earmold/Dome/CShell/SlimTip: Canal lock Primary Diagnosis: H90.6 Mixed Hearing Loss, Bilateral Signature: Provider: Wally Oliver, [facility]
== END 2022-08-10 13:48 | disposition home or self-care (01) ==
LOC: HO.HAP 13:47
PROVIDERS: Visit Provider Internal Medicine
DX: Z46.1 Encounter for fitting and adjustment of hearing aid (principal); H90.6 Mixed conductive and sensorineural hearing loss, bilateral
CPT/HCPCS: 92591; 99499; V5020; V5275

== ENCOUNTER → 2022-08-25 14:22 | Outpatient (BNVA) | payer OTHER, SELFPAY | PROVIDERS: PCP Internal Medicine; Visit Provider Internal Medicine | DX: G47.33 Obstructive sleep apnea (adult) (pediatric) (principal); J30.9 Allergic rhinitis, unspecified; E66.9 Obesity, unspecified; Z68.28 Body mass index [BMI] 28.0-28.9, adult | CPT/HCPCS: 99212 ==

== ENCOUNTER 2022-09-22 14:50 | Outpatient (REF) | payer OTHER, SELFPAY ==
[2022-09-22 15:06] LABS: MANUAL DIFF FLAG NO
[2022-09-22 16:54] LABS: Basophils Absolute Auto 0.1 X10*3/uL (0.0-0.2); Basophils Percent Auto 0.7 % (0-2); Eosinophils Absolute Auto 0.2 X10*3/uL (0.0-0.4); Eosinophils Percent Auto 2.1 % (0-4); Hematocrit 37.1 % (37.0-47.0); Imm Gran Abs Auto 0.14 X10*3/uL (0.00-0.03); Lymphocytes Absolute Auto 2.3 X10*3/uL (1.2-4.9); Lymphocytes Percent Auto 32.5 % (20-40); Mean Corpuscular HGB Conc 32.3 g/dl (31.0-35.0); Mean Corpuscular Hemoglobin 29.9 pg (27.0-33.0); Mean Corpuscular Volume 92.3 fL (80.0-98.0); Mean Platelet Volume 9.2 fL (9.4-12.3); Monocytes Absolute Auto 0.6 X10*3/uL (0.1-1.2); Monocytes Percent Auto 8.5 % (2-11); Neutrophils Absolute Auto 3.8 x10*3/uL (2.0-8.3); Neutrophils Percent Auto 54.2 % (45-73); Platelet Count 269 X10*3/uL (160-400); Red Blood Count 4.02 X10*6/uL (4.20-5.50); Red Cell Distribution Width 12.9 % (11.0-16.0)
[2022-09-22 17:36] LABS: Iron 95 mcg/dL (30-160); Percent Iron Saturation 41 % (15-50); Total Iron Binding Capacity 230 mcg/dL (228-428); Unsaturated Iron Binding 135 ug/dL
[2022-09-22 17:53] LABS: Vitamin D 25-OH Total 37.9 ng/mL (>30)
== END 2022-09-22 14:51 | disposition home or self-care (01) ==
LOC: HO.LAB 14:50
PROVIDERS: PCP Internal Medicine; Visit Provider Internal Medicine
DX: D64.9 Anemia, unspecified (principal); E55.9 Vitamin D deficiency, unspecified
CPT/HCPCS: 36415; 82306; 83540; 85025

== ENCOUNTER 2022-10-12 14:51 | Outpatient (REF) | payer OTHER, SELFPAY ==
--- NOTE | 2022-10-12 16:20 | MHC.AU.HA2 ---
Hearing Instrument Fitting- Adult- Binaural Date of Visit: 10/12/22 Human Resources Compensation Analyst Used: Hearing Instruments Dispensed: Right Ear: Telly, Model, Color, Serial Number: Christiano [id number], SN: [id number], [employer] Sweat Band Sewer Repair Warranty: 11/08/2025 Sweat Band Sewer Loss and Damage Warranty: 11/08/2025 [facility] Service Plan: 10/13/2023 Battery Size: 312 Earmold/Dome/CShell/SlimTip: Canal lock Left Ear: Telly, Model, Color, Serial Number: Christiano [id number], SN: [id number], Graph[employer]is Sweat Band Sewer Repair Warranty: 11/08/2025 Sweat Band Sewer Loss and Damage Warranty: 11/08/2025 [facility] Service Plan: 10/13/2023 Battery Size: 312 Earmold/Dome/CShell/SlimTip: Canal lock Summary of Fitting: The patient is here for a hearing aid dispense, accompanied by her daughter who interpreted in Yi. Ear molds fit well bilaterally. Hearing aids were programmed to 100% target gain with volume control enabled per patient request. The feedback health and safety manager was run and speech mapping shows the hearing aids are functioning and grossly meeting targets. The patient requested the left hearing aid be turned up so I increased the left hearing aid gain only to 110% target gain. She then reported a more balanced sound percept. Reviewed cleaning and general hearing aid care. No questions reported at this time. Reviewed [employer] hearing aid sales receipt and gave a signed copy to the patient. Dispensed 12 #312 batteries today. The patient will return in 3 weeks for a hearing aid check. Diagnosis Code(s): Primary Diagnosis: H90.6 Mixed Hearing Loss, Bilateral Signature: Provider: Wally Oliver, [facility]
== END 2022-10-12 14:52 | disposition home or self-care (01) ==
LOC: HO.HAP 14:51
PROVIDERS: Visit Provider Internal Medicine
DX: Z46.1 Encounter for fitting and adjustment of hearing aid (principal); H90.6 Mixed conductive and sensorineural hearing loss, bilateral
CPT/HCPCS: 92595; V5011; V5020; V5160; V5261; V5264; V5266

== ENCOUNTER 2022-12-27 11:29 | Outpatient (AMB) | payer OTHER, SELFPAY ==
--- NOTE | 2022-12-27 12:59 | AM.OFFWIN_ITS ---
Intake Vital Signs 12/27/22 13:05 BP 110/64 Blood Pressure Location Rt brachial Position Sitting Pulse 54 Pulse Source Pulse Oximeter Temp 97.3 F Temp Source Temporal Artery Scan Pulse Oximetry (%) 98 Intake Visit Reasons: EP RT side abd pain (lobby) Intake Note: Patient here for severe right side abdominal pain, has had nausea, low grade fever. pain has worsened while waiting in our waiting room, pain is starting to radiate to the left side. she has not been able to tolerate food, bowels are regular. she has a hx of small bowel obstruction. Patient Tobacco Use Status: Never used Tobacco Allergies amoxicillin Allergy (Intermediate, Verified 12/27/22 13:05) Rash griseofulvin [From Candie-PEG (ultramicrosize)] Allergy (Intermediate, Verified 12/27/22 13:05) Rash octopus Allergy (Intermediate, Verified 12/27/22 13:05) Hives pregabalin [From Lyrica] Allergy (Intermediate, Verified 12/27/22 13:05) LEethargy, dizziness celecoxib [From Celebrex] Adverse Reaction (Intermediate, Verified 12/27/22 13:05) Problems with Liver dicyclomine Adverse Reaction (Mild, Verified 12/27/22 13:05) stomach upset oxycodone [From Percocet] Adverse Reaction (Mild, Verified 12/27/22 13:05) Lethargy morphine Adverse Reaction (Verified 12/27/22 13:05) Unknown MANDARIN ORANGES Allergy (Severe, Uncoded 12/27/22 13:05) Lip Swelling, Hives PARMELEX Allergy (Intermediate, Uncoded 12/27/22 13:05) Problems with Liver Medication List - Last Reconciled 12/27/22 by Obi Natarajan MD acetaminophen 1,000 mg PO BID PRN aspirin 81 mg PO DAILY calcium carbonate 500 mg PO BID 30 days cholecalciferol (vitamin D3) (Vitamin D3) 25 mcg PO DAILY [cpap As directed] cranberry extract 500 mg PO DAILY docusate sodium 100 mg PO TID esomeprazole magnesium 40 mg PO DAILY famotidine 40 mg PO BEDTIME ferrous sulfate 325 mg PO DAILY ferrous sulfate 325 mg PO DAILY linaclotide (Linzess) 145 mcg PO DAILY loratadine 10 mg PO DAILY 90 days Do you need a note to return to daycare/school/sports/work: No HPI EP RT side abd pain (lobby) HPI Details 62-year-old female presents to the office for a sick visit. She is accompanied by her daughter. Patient does not speak Yakut and the daughter is translating. Patient is complaining of sharp lower abdominal pain for the last 2 days. Symptoms started after eating food. No other family member got sick. She has episodes of nausea. Passing soft stool. Past history of colitis and small bowel obstruction. Low-grade fever yesterday. Patient has been only able to tolerate liquids in the past 24 hours. [facility] Medical History Allergic rhinitis Arthritis Carpal tunnel syndrome Dyspnea on exertion Elevated AST (SGOT) Epigastric pain Fibromyalgia Fibromyalgia Gastroparesis H. pylori infection Hearing loss Hyperlipidemia Ingrown toenail of right foot Iron deficiency anemia Midline thoracic back pain Muscle cramps Nausea Neuropathy Normocytic anemia Obesity (BMI 30-39.9) GRAYSON (obstructive sleep apnea) Physical exam Postmenopausal RUQ pain Small bowel obstruction Tendonitis Surgical History Family history of lipoma History of History of carpal tunnel repair History of endoscopy History of esophagogastroduodenoscopy (EGD) History of laparoscopic cholecystectomy History of left breast biopsy History of temporal artery biopsy History of varicose vein stripping Hx of colonoscopy Family History Father Heart disease Diabetes Hypertension Mother Diabetes Hypertension Arthritis Fibromyalgia Osteoporosis Sister Breast cancer Social History Household Members: Family Caregiver staying overnight: No Housing: Apartment Alcohol intake: never Patient Tobacco Use Status: Never used Tobacco e-Cigarette/Vaping Use: Never Used Second Hand Smoke Exposure: No service: No 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al status: disabled Cognitive needs: No Hearing needs: Yes Vision needs: No Physical Exam Vital Signs: Last Vital Signs Temp 97.3 F 12/27/22 13:05 Pulse 54 12/27/22 13:05 BP 110/64 12/27/22 13:05 Pulse Ox 98 12/27/22 13:05 Const General: cooperative and healthy appearing Nutritional Appearance: well nourished Orientation/consciousness: patient oriented x3 Limitations: no limitations HEENT Head: Yes normal to inspection Eyes General: appearance normal, both eyes and all related structures Neck Neck: Yes normal visual inspection Chest Chest palpation & inspection: normal palpation of entire chest wall Resp Effort & Inspection: normal respiratory effort GI Other: Abdomen: Bowel sounds sluggish. Right lower quadrant tenderness. Rebound tenderness present. Neuro General: patient oriented x3 Assessment & Plan Assessment & Plan (1) Abdominal pain: Code(s): R10.9 - Unspecified abdominal pain Plan: This needs further evaluation at the emergency room. Patient would benefit from any immediate CT scan and lab work. The daughter is taking the patient to the hospital. Coding Level of Care Code Est Pt Level 4 (03460) Diagnoses Abdominal pain R10.9
[2022-12-27 13:05] VITALS: BP 110/64; PULSE 54; TEMP 36.3; O2SAT 98
== END 2022-12-27 13:18 | disposition home or self-care (01) ==
PROVIDERS: PCP Internal Medicine; Visit Provider Internal Medicine
DX: R10.9 Unspecified abdominal pain (principal)
CPT/HCPCS: 99214

== ENCOUNTER 2022-12-27 13:36 | Emergency (ER) | payer OTHER, SELFPAY ==
--- NOTE | ~2022-12-27 | CT_ITS ---
EXAMINATION: CT ABDOMEN AND PELVIS WITH CONTRAST CLINICAL INFORMATION: Right lower quadrant pain COMPARISON: 09/13/2021 TECHNIQUE: Multidetector volumetric images were obtained from the superior aspect of the liver through the pubic symphysis following administration 85 mL of Omnipaque 350 intravenous contrast. Sagittal and coronal reformatted images were obtained on the technologist's workstation. Oral contrast: No This CT examination was performed using dose optimization techniques as appropriate, variously including the following: *Automated exposure control *Adjustment of mA and/or kV according to patient size (this includes techniques or standardized protocols for targeted exams where dose is matched to indication/reason for exam; i.e. extremities or head) *Use of iterative reconstruction technique DLP: 430 mGy-cm FINDINGS: LUNG BASES: The visualized lung bases are unremarkable. LIVER, GALLBLADDER, AND BILIARY TREE: The liver is normal in size, shape, and attenuation. No focal hepatic lesion or biliary ductal dilatation is present. Patient is status post cholecystectomy. PANCREAS: Unremarkable. SPLEEN: Unremarkable. ADRENAL GLANDS: Unremarkable. KIDNEYS AND URETERS: Bilateral nephrograms are symmetric. No hydronephrosis or obstructing calculus identified. Mid left renal cyst noted; no follow-up recommended. BLADDER: Partially distended without significant wall thickening. GASTROINTESTINAL TRACT: No evidence of bowel obstruction. There is sigmoid colon diverticulosis. There is a thick-walled appearance of the ascending colon, and to a lesser degree some mural prominence of the transverse and descending colon, suspicious for colitis. Appendix appears nondilated. No free fluid or free air is seen. ABDOMINAL WALL: No significant hernia is appreciated. LYMPH NODES: There are multiple subcentimeter lymph nodes in the right mesentery. VASCULAR: Unremarkable. PELVIC VISCERA: Unremarkable. OSSEOUS STRUCTURES: There is facet arthropathy of the lower lumbar spine and scattered endplate osteophytes. CT/CT abdomen pelvis w IV con IMPRESSION: Thick-walled appearance of the ascending colon, and to a lesser degree some mural prominence of the transverse and descending colon. Appearance is suspicious for colitis, which may be infectious or inflammatory. Multiple subcentimeter lymph nodes in the right mesentery may be reactive in this setting.
[2022-12-27 14:34] VITALS: BP 102/54; PULSE 69; RESP 16; TEMP 35.9; O2SAT 98; BMI 28.0
--- NOTE | 2022-12-27 14:34 | ED.GENADULT ---
HPI - General Adult General Chief complaint: Abdominal Pain Stated complaint: abd pain Time Seen by Provider: 12/27/22 21:50 Source: patient Mode of arrival: ambulatory Limitations: language barrier History of Present Illness HPI narrative: This is a [id number]-female, with a hx of GERD, constipation, hepatic steatosis, presenting to the emergency department with complaint of right lower abdominal pain x 4 days. Symptoms worsening since. +nausea, low grade fevers, unable to tolerate PO. Last BM was yesterday, soft. RLQ pain on exam. VSS. has had cholescystectomy and cesearan sections, no other abd surgeries. Sent in by her PMD for concerns of obstruction. Patient is not eating and pain, she has had obstruction in the past. Onset (ago): week(s) Location: abdomen Severity: mild Pain Consistency: intermittent Related Data Home Medications Medication Instructions Recorded Confirmed acetaminophen 500 mg tablet 1,000 mg PO BID PRN Pain (Scale 01/08/21 09/22/22 Score 1-3) Previous Rx's Medication Instructions Recorded cpap #1 ea 06/03/20 cranberry extract 500 mg capsule 500 mg PO DAILY #90 caps 03/09/21 calcium carbonate 500 mg calcium 500 mg PO BID 30 days #60 tabs 07/05/22 (1,250 mg) tablet docusate sodium 100 mg capsule 100 mg PO TID #90 caps 07/22/22 famotidine 40 mg tablet 40 mg PO BEDTIME #90 tabs 07/22/22 linaclotide 145 mcg capsule 145 mcg PO DAILY #30 caps 07/22/22 (Linzess) aspirin 81 mg tablet,delayed 81 mg PO DAILY #90 tabs 10/27/22 release loratadine 10 mg tablet 10 mg PO DAILY 90 days #90 tabs 10/30/22 ferrous sulfate 325 mg (65 mg 325 mg PO DAILY 11/04/22 iron) tablet cholecalciferol (vitamin D3) 25 25 mcg PO DAILY #30 tabs 12/20/22 mcg (1,000 unit) tablet (Vitamin D3) esomeprazole magnesium 40 mg 40 mg PO DAILY #90 caps 12/20/22 capsule,delayed release ferrous sulfate 325 mg (65 mg 325 mg PO DAILY #30 tabs 12/20/22 iron) tablet metronidazole 500 mg tablet 500 mg PO TID #30 tabs 12/28/22 Allergies Allergy/AdvReac Type Severity Reaction Status Date / Time amoxicillin Allergy Intermediate Rash Verified 12/27/22 14:34 griseofulvin Allergy Intermediate Rash Verified 12/27/22 14:34 [From Candie-PEG (ultramicrosize)] octopus Allergy Intermediate Hives Verified 12/27/22 14:34 pregabalin [From Lyrica] Allergy Intermediate LEethargy, Verified 12/27/22 14:34 dizziness celecoxib [From Celebrex] AdvReac Intermediate Problems Verified 12/27/22 14:34 with Liver dicyclomine AdvReac Mild stomach Verified 12/27/22 14:34 upset oxycodone [From Percocet] AdvReac Mild Lethargy Verified 12/27/22 14:34 morphine AdvReac Unknown Verified 12/27/22 14:34 MANDARIN ORANGES Allergy Severe Lip Uncoded 12/27/22 14:34 Swelling, Hives PARMELEX Allergy Intermediate Problems Uncoded 12/27/22 14:34 with Liver Review of Systems Review of Systems: Yes all other systems are reviewed and are negative [facility] Past Medical History Medical History Allergic rhinitis Arthritis Carpal tunnel syndrome Dyspnea on exertion Elevated AST (SGOT) Epigastric pain Fibromyalgia Fibromyalgia Gastroparesis H. pylori infection Hearing loss Hyperlipidemia Ingrown toenail of right foot Iron deficiency anemia Midline thoracic back pain Muscle cramps Nausea Neuropathy Normocytic anemia Obesity (BMI 30-39.9) GRAYSON (obstructive sleep apnea) Physical exam Postmenopausal RUQ pain Small bowel obstruction Tendonitis Surgical History Family history of lipoma History of History of carpal tunnel repair History of endoscopy History of esophagogastroduodenoscopy (EGD) History of laparoscopic cholecystectomy History of left breast biopsy History of temporal artery biopsy History of varicose vein stripping Hx of colonoscopy Family History Family History Father Heart disease Diabetes Hypertension Mother Diabetes Hypertension Arthritis Fibromyalgia Osteoporosis Sister Breast cancer Social History Social History Household Members: Family Housing: Apartment Alcohol intake: never Patient Tobacco Use Status: Never used Tobacco e-Cigarette/Vaping Use: Never Used Second Hand Smoke Exposure: No Advance Directives: No Advance Directives Information Provided: Yes service: No 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al status: disabled Cognitive needs: No Hearing needs: Yes Vision needs: No Physical Exam ED Vital Signs: Vital Signs - 24 hr 12/27/22 14:34 12/27/22 20:42 12/27/22 21:40 Temperature 96.7 F L 97.3 F 97.8 F Pulse Rate 69 62 69 Respiratory Rate 16 18 18 Blood Pressure 102/54 L 121/61 125/64 Pulse Oximetry 98 98 98 Oxygen Delivery Method Room Air Room Air Room Air 12/27/22 23:41 Temperature 97.7 F Pulse Rate 64 Respiratory Rate 16 Blood Pressure 131/68 Pulse Oximetry 98 Oxygen Delivery Method Room Air BMI result Body Mass Index 28.0 Const Other: female looking older than stated age, no acute distress Nutritional Appearance: average body habitus Orientation/consciousness: oriented to person and patient oriented x3 Limitations: language barrier HENMT Head: Yes normal to inspection Ears: external ears normal General nose exam: Normal external nose present Mouth: Normal oral and palatal mucosa present and oropharynx normal Throat: Yes posterior oropharynx normal Eyes General: appearance normal, both eyes and all related structures Neck Neck: Yes normal visual inspection Chest Chest palpation & inspection: normal inspection of the chest Resp Auscultation: clear to auscultation bilaterally Cardio Jugular venous distension: no JVD Rate: regular rate Rhythm: regular rhythm Heart sounds: S1 normal heart sound present and S2 normal heart sound present GI Inspection: Yes normal to inspection Palpation (GI): Soft to palpation, nontender and No hepatosplenomegaly present Auscultation: normal bowel sounds General: Yes no CVA tenderness Back/Spine/Pelvis Back: no CVA tenderness Skin General skin exam: no rashes or lesions noted Neuro General: oriented to person and patient oriented x3 Cranial nerves: Yes CN's II-XII intact bilaterally Motor exam (neuro): 5/5 motor strength present throughout Extrem General: Yes normal to inspection Psych Appearance: grossly normal Course Course Course Narrative: This is an RME: Additional HPI, ROS, PE not included below will be deferred to primary provider. This is a 48-[id number]-mhj-female, with a hx of GERD, constipation, hepatic steatosis, presenting to the emergency department with complaint of right lower abdominal pain x 4 days. Symptoms worsening since. +nausea, low grade fevers, unable to tolerate PO. Last BM was yesterday, soft. RLQ pain on exam. VSS. has had cholescystectomy and cesearan sections, no other abd surgeries. Plan: Labs, CT abd w/ contrast to r/o appendicitis. Reevaluation(s) Reevaluation #1: CT with evidence for colitis in the right colon will dc home on augmentin Time: 00:28 Medications Administered Discontinued Medications Generic Name Dose Route Start Last Admin Trade Name Freq PRN Reason Stop Dose Admin Iohexol 85 ml 12/27/22 23:27 12/27/22 23:28 Iohexol 350 Mg/Ml 100 Ml Infus..Btl IV 12/27/22 23:28 85 ml ONCE ONE Administration Medical Decision Making Differential Diagnosis Differential Diagnoses: The differential diagnosis associated with the presentation includes (bowel obstruction, diverticulitis, colitis were all considered) Admission/Observation Consideration of admission/observation: Escalation of care including admission/observation considered (62 yo female with history for bowel obstruction presents with increasing pain and decreasing intake was considered for admission upon arrival) Lab Data MDM Lab Attestation statement: I reviewed the patient's lab results. (normal WBC, normal lfts) 12/27/22 14:55 12/27/22 14:55 Labs: Lab Results 12/27/22 12/27/22 12/27/22 Range/Units 14:55 14:55 20:45 WBC 5.6 (4.8-10.8) X10*3/uL RBC 3.91 L (4.20-5.50) X10*6/uL Hgb 12.1 (12.0-16.0) g/dl Hct 36.7 L (37.0-47.0) % MCV 93.9 (80.0-98.0) fL MCH 30.9 (27.0-33.0) pg MCHC 33.0 (31.0-35.0) g/dl RDW 12.7 (11.0-16.0) % Plt Count 237 (160-400) X10*3/uL MPV 8.4 L (9.4-12.3) fL Immature Gran % (Auto) 1.8 H (0.0-0.4) % Neut % (Auto) 50.3 (45-73) % Lymph % (Auto) 34.6 (20-40) % [place] % (Auto) 10.8 (2-11) % Eos % (Auto) 1.8 (0-4) % Baso % (Auto) 0.7 (0-2) % Lymph # (Auto) 1.9 (1.2-4.9) X10*3/uL [place] # (Auto) 0.6 (0.1-1.2) X10*3/uL Eos # (Auto) 0.1 (0.0-0.4) X10*3/uL Baso # (Auto) 0.0 (0.0-0.2) X10*3/uL Abs Immat Gran (auto) 0.10 H (0.00-0.03) X10*3/uL Absolute Neuts (auto) 2.8 (2.0-8.3) x10*3/uL Absolute Nucleated RBC 0.000 (0.0-0.012) X10*3/uL Nucleated RBC % (auto) 0.0 (0.0-0.2) /100WBC Sodium 142 (135-145) mmol/L Potassium 3.7 (3.3-5.1) mmol/L Chloride 107 (96-108) mmol/L Carbon Dioxide 27 (22-29) mmol/L Anion Gap 12 (12-20) BUN 8 L (9-16) mg/dL Creatinine 0.60 (0.5-1.4) mg/dL Estim Creat Clear Calc 84.1 Estimated GFR > 60 Random Glucose 81 (60-115) mg/dL Calcium 9.4 (8.4-10.2) mg/dL Magnesium 2.1 (1.6-2.6) mg/dL Total Bilirubin 0.4 (0.0-1.0) mg/dL Direct Bilirubin 0.1 (0.0-0.5) mg/dL AST 22 (5-31) U/L ALT 15 (0-31) U/L Alkaline Phosphatase 78 (39-117) U/L Total Protein 7.0 (6.5-8.0) g/dL Albumin 4.0 (3.5-5.0) g/dL Lipase 8 (8-78) U/L Urine Color Yellow Urine Appearance Clear Urine pH 6.5 (5.0-9.0) Ur Specific [place] <= 1.005 (1.005-1.025) Urine Protein Negative (Neg-Trace) mg/dL Urine Glucose (UA) Negative (Negative) mg/dL Urine Ketones Negative (Negative) mg/dL Urine Blood Small (1+) H (Negative) Urine Nitrite Negative (Negative) Ur Leukocyte Esterase Small (1+) H (Negative) Urine RBC 3-5 H (0-2) /HPF Urine WBC 0-5 (0-5) /HPF Ur Squamous Epith Cells 0-2 (0-2) /HPF Urine Bacteria None Seen (None Seen) Hyaline Casts 0-2 (0-2) /LPF Urine Yeast Present Independent Interpretation I performed an independent interpretation of an: CT Scan (no bowel obstruction) Radiology Impression Discussion of test interpretation with radiology: I have reviewed the radiologist's reading. (right sided colitis seen on CT and I agree) External Record Review External record reviewed: Outpatient record Prescription Management I considered prescription management with: Pain Medication (narcotic pain medication considered) Discharge Plan Discharge Clinical Impression: Colitis Patient Disposition: Home, Self-Care Instructions: Colitis (ED) Prescriptions: New metronidazole 500 mg tablet 500 mg PO TID Qty: 30 0RF No Action (DME) cpap 5-20 cm H2O autoPAP See Rx Instructions .Route .MEDSUPPLY Qty: 1 0RF Rx Instructions: As directed cranberry extract 500 mg capsule 500 mg PO DAILY Qty: 90 3RF calcium carbonate 500 mg calcium (1,250 mg) tablet 500 mg PO BID 30 Days Qty: 60 11RF aspirin 81 mg tablet,delayed release (DR/EC) 81 mg PO DAILY Qty: 90 0RF loratadine 10 mg tablet 10 mg PO DAILY 90 Days Qty: 90 3RF ferrous sulfate 325 mg (65 mg iron) tablet 325 mg PO DAILY 11RF esomeprazole magnesium 40 mg capsule,delayed release(DR/EC) 40 mg PO DAILY Qty: 90 3RF cholecalciferol (vitamin D3) [Vitamin D3] 25 mcg (1,000 unit) tablet 25 mcg PO DAILY Qty: 30 11RF ferrous sulfate 325 mg (65 mg iron) Tablet 325 mg PO DAILY Qty: 30 6RF acetaminophen 500 mg tablet 1,000 mg PO BID PRN (Reason: Pain (Scale Score 1-3)) docusate sodium 100 mg capsule 100 mg PO TID Qty: 90 6RF famotidine 40 mg tablet 40 mg PO BEDTIME Qty: 90 2RF Linzess 145 mcg capsule 145 mcg PO DAILY Qty: 30 6RF Referrals: Julia Green MD [Primary Care Provider] - 5 days
[2022-12-27 15:02] LABS: MANUAL DIFF FLAG NO
[2022-12-27 15:03] LABS: Basophils Percent Auto 0.7 % (0-2); Eosinophils Absolute Auto 0.1 X10*3/uL (0.0-0.4); Eosinophils Percent Auto 1.8 % (0-4); Hematocrit 36.7 % (37.0-47.0); Hemoglobin 12.1 g/dl (12.0-16.0); Imm Gran Pct Auto 1.8 % (0.0-0.4); Lymphocytes Absolute Auto 1.9 X10*3/uL (1.2-4.9); Lymphocytes Percent Auto 34.6 % (20-40); Mean Corpuscular Hemoglobin 30.9 pg (27.0-33.0); Mean Corpuscular Volume 93.9 fL (80.0-98.0); Mean Platelet Volume 8.4 fL (9.4-12.3); Monocytes Absolute Auto 0.6 X10*3/uL (0.1-1.2); Monocytes Percent Auto 10.8 % (2-11); Neutrophils Absolute Auto 2.8 x10*3/uL (2.0-8.3); Neutrophils Percent Auto 50.3 % (45-73); Platelet Count 237 X10*3/uL (160-400); Red Blood Count 3.91 X10*6/uL (4.20-5.50); Red Cell Distribution Width 12.7 % (11.0-16.0); White Blood Count 5.6 X10*3/uL (4.8-10.8)
[2022-12-27 15:25] LABS: Alanine Aminotransferase 15 U/L (0-31); Alkaline Phosphatase 78 U/L (39-117); Anion Gap 12 (12-20); Aspartate Amino Transferase 22 U/L (5-31); Bilirubin Direct 0.1 mg/dL (0.0-0.5); Bilirubin Total 0.4 mg/dL (0.0-1.0); Blood Urea Nitrogen 8 mg/dL (9-16); Calcium 9.4 mg/dL (8.4-10.2); Carbon Dioxide 27 mmol/L (22-29); Chloride 107 mmol/L (96-108); Creatinine Clr Calc Pharmacy 84.1; Estimated Glomerular Filt Rate > 60; Glucose Random 81 mg/dL (60-115); Lipase 8 U/L (8-78); Magnesium 2.1 mg/dL (1.6-2.6); Potassium 3.7 mmol/L (3.3-5.1); Sodium 142 mmol/L (135-145)
[2022-12-27 20:42] VITALS: BP 121/61; PULSE 62; RESP 18; TEMP 36.3; O2SAT 98
--- NOTE | 2022-12-27 20:45 | MHC.EDTECH ---
PATIENT URINE SAMPLE COLLECTED AND SENT TO LAB ,VITALS SIGN TAKEN AND ID STABLE .
[2022-12-27 21:02] LABS: Appearance Urine Clear; Color Urine Yellow; Glucose Urine UA Negative (Negative); Leukocyte Esterase Urine Small (1+) (Negative); Nitrite Urine Negative (Negative); PH 6.5 (5.0-9.0); Specific Gravity - Urine <= 1.005 (1.005-1.025); UMIC TRIGGER UACC YES; Urine Blood Small (1+) (Negative); Urine Ketones Negative (Negative); Urine Protein Negative (Neg-Trace)
[2022-12-27 21:20] LABS: Bacteria Urine None Seen (None Seen); Hyaline Casts Urine 0-2 /LPF (0-2); Squamous Epithelial Cell Urine 0-2 /HPF (0-2); UACC Culture Trigger YES; WBC Urine 0-5 /HPF (0-5)
[2022-12-27 21:40] VITALS: BP 125/64; PULSE 69; RESP 18; TEMP 36.6; O2SAT 98
[2022-12-27] MEDS: iohexoL 350 MG/ML 100 ML INFUS..BTL 85 ML IV (23:28)
[2022-12-27 23:41] VITALS: BP 131/68; PULSE 64; RESP 16; TEMP 36.5; O2SAT 98
[2022-12-28] MEDS: metroNIDAZOLE 500 MG TABLET PO (00:48)
== END 2022-12-28 01:03 | disposition home or self-care (01) ==
PROVIDERS: Physician Assistant Medical; Emergency Provider Emergency Medicine; PCP Internal Medicine
DX: K52.9 Noninfective gastroenteritis and colitis, unspecified (principal); R10.31 Right lower quadrant pain; E78.5 Hyperlipidemia, unspecified; Z90.49 Acquired absence of other specified parts of digestive tract; Z79.82 Long term (current) use of aspirin; Z79.899 Other long term (current) drug therapy
CPT/HCPCS: 36415; 74177; 80048; 80076; 81001; 81003; 83690; 83735; 85025; 87086; 99283; 99284; Q9967

== ENCOUNTER 2023-01-04 15:23 | Outpatient (REF) | payer OTHER, SELFPAY ==
--- NOTE | 2023-01-04 16:18 | MHC.AU.HA3 ---
Hearing Instrument Follow-Up- Binaural Date of Visit: 01/04/23 Right Ear: Telly, Model, Color, Serial Number: Christiano [id number]-[id number] SN: [id number] Color: Graphite Reis [employer] Worker Repair Warranty: 11/08/2025 [employer] Worker Loss and Damage Warranty: 11/08/2025 [facility] Service Plan: 10/13/2023 Battery Size: 312 Earmold/Dome/CShell/SlimTip:Westone Formula II Canal lock Dispensed By: [facility] Date of Fittin10/12/2022 Left Ear: Telly, Model, Color, Serial Number: Christiano Villafana0-Ashely SN: [id number] Color: Graphite Reis [employer] Worker Repair Warranty: 11/08/2025 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 Overall, Raquel reported that the sound quality of the hearing aids have been great. Her only concern at this time is that the ear molds work their way out of her ears and her ear canals are constantly itchy. She often needs to remove the hearing aids to give her ears a break from the itchiness. Discussed option of new ear molds in different style and material to address her concerns. Impressions taken, bilaterally, without incident. Sent of Phonbouchra. Ordered new skeleton ear molds to help with retention in otoblast (no glaze/matte finish) for hypoallergenic material. Recommendations: Patient will be contacted when materials have arrived. Diagnosis Code(s): Primary Diagnosis: H90.6 Mixed Hearing Loss, Bilateral Signature: Provider: Rafy Rodarte, [facility]
== END 2023-01-04 15:24 | disposition home or self-care (01) ==
LOC: HO.HAP 15:23
PROVIDERS: Visit Provider Internal Medicine
DX: Z46.1 Encounter for fitting and adjustment of hearing aid (principal); H90.6 Mixed conductive and sensorineural hearing loss, bilateral
CPT/HCPCS: V5266

== ENCOUNTER 2023-01-06 13:48 | Outpatient (AMB) | payer OTHER, SELFPAY ==
[2023-01-06 14:07] VITALS: BP 110/70; PULSE 66; O2SAT 97; BMI 26.9
--- NOTE | 2023-01-06 14:07 | A.OFFVIS_ITS ---
Intake Vital Signs 01/06/23 14:07 Height 5 ft 1 in Weight 142 lb 3.17 oz BMI 26.9 BP 110/70 Blood Pressure Location Lt brachial Position Sitting Pulse 66 Pulse Source Pulse Oximeter Pulse Oximetry (%) 97 Oxygen Delivery Method Room Air Intake Visit Reasons: hill Gi Physician Required: No Allergies amoxicillin Allergy (Intermediate, Verified 01/06/23 14:20) Rash griseofulvin [From Candie-PEG (ultramicrosize)] Allergy (Intermediate, Verified 01/06/23 14:20) Rash octopus Allergy (Intermediate, Verified 01/06/23 14:20) Hives pregabalin [From Lyrica] Allergy (Intermediate, Verified 01/06/23 14:20) LEethargy, dizziness celecoxib [From Celebrex] Adverse Reaction (Intermediate, Verified 01/06/23 14:20) Problems with Liver dicyclomine Adverse Reaction (Mild, Verified 01/06/23 14:20) stomach upset oxycodone [From Percocet] Adverse Reaction (Mild, Verified 01/06/23 14:20) Lethargy morphine Adverse Reaction (Verified 01/06/23 14:20) Unknown MANDARIN ORANGES Allergy (Severe, Uncoded 01/06/23 14:20) Lip Swelling, Hives PARMELEX Allergy (Intermediate, Uncoded 01/06/23 14:20) Problems with Liver Medication List - Last Reconciled 01/06/23 by Sophai Zaidi MD acetaminophen 1,000 mg PO BID PRN aspirin 81 mg PO DAILY calcium carbonate 500 mg PO BID 30 days cholecalciferol (vitamin D3) (Vitamin D3) 25 mcg PO DAILY [cpap As directed] cranberry extract 500 mg PO DAILY docusate sodium 100 mg PO TID esomeprazole magnesium 40 mg PO DAILY famotidine 40 mg PO BEDTIME ferrous sulfate 325 mg PO DAILY linaclotide (Linzess) 145 mcg PO DAILY loratadine 10 mg PO DAILY 90 days metronidazole 500 mg PO TID Do you need a note to return to daycare/school/sports/work: No HPI hill HPI Details THIS 62 YEARS OLD VERY PLEASANT FEMALE IS A CASE OF OBSTRUCTIVE SLEEP APNEA, MAINLY BECAUSE OF HER RETROGANTHIA OF THE LOWER JAW. SHE GOT HER NEW CPAP MACHINE SINCE 2 MONTHS AGO AND IT IS WORKING MUCH BETTER. SHE HAS NO DIFFICULTY IN USING THE CPAP AND DOES USE ABOUT 7-8 HOURS EVERY NIGHT. SLEEPS GOOD AND DOES NOT HAVE ANY. DAYTIME SLEEPINESS SHE WAS SEEN IN THE EMERGENCY ROOM ABOUT 10 DAYS AGO FOR ABDOMINAL PAIN AND DIAGNOSED TO ACUTE COLITIS, WHICH HAS NOW IMPROVED AFTER USING THE ANTIBIOTIC. [facility], [facility] Medical History Allergic rhinitis Arthritis Carpal tunnel syndrome Dyspnea on exertion Elevated AST (SGOT) Epigastric pain Fibromyalgia Fibromyalgia Gastroparesis H. pylori infection Hearing loss Hyperlipidemia Ingrown toenail of right foot Iron deficiency anemia Midline thoracic back pain Muscle cramps Nausea Neuropathy Normocytic anemia Obesity (BMI 30-39.9) HILL (obstructive sleep apnea) Physical exam Postmenopausal RUQ pain Small bowel obstruction Tendonitis Surgical History Family history of lipoma History of History of carpal tunnel repair History of endoscopy History of esophagogastroduodenoscopy (EGD) History of laparoscopic cholecystectomy History of left breast biopsy History of temporal artery biopsy History of varicose vein stripping Hx of colonoscopy Family History Father Heart disease Diabetes Hypertension Mother Diabetes Hypertension Arthritis Fibromyalgia Osteoporosis Sister Breast cancer Social History Household Members: Family Caregiver staying overnight: No Housing: Apartment Alcohol intake: never Patient Tobacco Use Status: Never used Tobacco e-Cigarette/Vaping Use: Never Used Second Hand Smoke Exposure: No service: No 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al status: disabled Cognitive needs: No Hearing needs: Yes Vision needs: No Review of Systems Const All systems reviewed & are unremarkable except as noted in HPI and below Eyes Reports no additional complaints ENT Reports nasal congestion (Off and on) Card Denies chest pain, Denies irregular heart rhythm, Denies leg edema and Denies dyspnea on exertion Resp Denies cough, Denies dyspnea on exertion and Denies wheezing GI Reports heartburn (Symptoms of GERD controlled with meds), Reports diarrhea and Reports nausea (Of and on) Reports no additional complaints Musc Reports myalgias (DUE TO FIBROMYALGIA) Skin/Breast Reports system reviewed and no additional complaints, except as documented Neuro Reports no additional complaints Psych Reports no additional complaints Aller/Immun Denies wheezing Physical Exam Vital Signs: Last Vital Signs Pulse 66 01/06/23 14:07 BP 110/70 01/06/23 14:07 Pulse Ox 97 01/06/23 14:07 Oxygen Delivery Method Room Air 01/06/23 14:07 BMI result Body Mass Index 26.9 Const General: comfortable, no acute distress, alert and awake Orientation/consciousness: patient oriented x3 HEENT Other: SHE HAS MILD RETROGANTHIA OF THE LOWER JAW. Head: Yes normal to inspection General nose exam: No nasal polyps present and No nasal discharge present Face and sinus: Yes sinuses nontender Mouth: oropharynx normal Throat: Yes posterior oropharynx normal Eyes General: appearance normal, both eyes and all related structures Neck Neck: Yes normal visual inspection, Yes no lymphadenopathy, Yes trachea midline and Yes no JVD Thyroid: Thyroid normal Chest Chest palpation & inspection: normal inspection of the chest, normal palpation of entire chest wall and no tenderness Resp Effort & Inspection: normal respiratory effort Auscultation: clear to auscultation bilaterally, no rales and no wheezes Percussion: percussion normal Cardio Palpation: normal PMI Rate: regular rate Rhythm: regular rhythm Heart sounds: no gallops and no murmurs GI Palpation (GI): Soft to palpation, nontender, No hepatosplenomegaly present and no masses Auscultation: normal bowel sounds Back/Spine/Pelvis Thoracic/Lumbar Spine: thoracic and lumbar spine normal to inspection Skin General skin exam: no rashes or lesions noted Neuro General: patient oriented x3 and no focal motor deficits Cranial nerves: Yes CN's II-XII intact bilaterally Extrem General: Yes normal to inspection, Yes no clubbing, cyanosis or edema and Yes no calf tenderness Psych Appearance: grossly normal and well kempt Speech and movement: Normal speech and movement present Assessment & Plan Assessment & Plan (1) HILL (obstructive sleep apnea): Comment: SHE HAS MILD DEGREE OF OBSTRUCTIVE SLEEP APNEA, MOSTLY IN SUPINE POSITION. HILL IN HER CASE IS MOSTLY DUE TO RETROGANTHIA OF THE LOWER JAW . USES CPAP, WITH F F MASK , AND PRESSURE OF 4-8 CMs . SHE HAS ALWAYS BEEN VERY COMPLIANT. SINCE SHE GOT NEW CPAP DEVICE, SHE FEELS MUCH BETTER IN USING THE CPAP AT NIGHT. Code(s): G47.33 - Obstructive sleep apnea (adult) (pediatric) (2) Allergic rhinitis: Comment: MILD AND MAY BE TREATED WITH LORATADINE 10 MG ONCE A DAY P.R.N. Code(s): J30.9 - Allergic rhinitis, unspecified Coding Level of Care Code Est Pt Level 3 (36347) Diagnoses HILL (obstructive sleep apnea) G47.33 Allergic rhinitis J30.9
== END 2023-01-06 14:27 | disposition home or self-care (01) ==
PROVIDERS: PCP Internal Medicine; Visit Provider Internal Medicine
DX: G47.33 Obstructive sleep apnea (adult) (pediatric) (principal); J30.9 Allergic rhinitis, unspecified
CPT/HCPCS: 99213

== ENCOUNTER → 2023-01-06 13:48 | Outpatient (BNVA) | payer OTHER, SELFPAY | PROVIDERS: PCP Internal Medicine; Visit Provider Internal Medicine | DX: G47.33 Obstructive sleep apnea (adult) (pediatric) (principal); M26.19 Other specified anomalies of jaw-cranial base relationship; J30.9 Allergic rhinitis, unspecified; Z99.89 Dependence on other enabling machines and devices | CPT/HCPCS: 99212 ==

== ENCOUNTER 2023-01-10 08:50 | Outpatient (REF) | payer OTHER, SELFPAY ==
--- NOTE | ~2023-01-10 | US_ITS ---
EXAMINATION: US ABDOMEN LIMITED CLINICAL INFORMATION: Fatty (change of) liver, not elsewhere classified. COMPARISON: CT abdomen and pelvis with contrast 12/27/2022. X-ray abdomen KUB 09/15/2021. Ultrasound abdomen limited 07/21/2021. US abdomen complete with liver elastography 01/28/2021. X-ray abdomen KUB 07/05/2019. TECHNIQUE: Real-time imaging of the right upper quadrant abdominal viscera. FINDINGS: PANCREAS: Normal. LIVER: The liver is normal in size. The liver contour is normal. There is diffuse increased liver echogenicity. No focal hepatic lesion. There is no intrahepatic biliary duct dilatation seen. GALLBLADDER: Surgically absent. COMMON BILE DUCT: Normal in caliber measuring 0.6 cm in diameter. RIGHT KIDNEY: Normal. No hydronephrosis. No renal calculi or focal parenchymal lesions. The kidney measures 9.5 cm in maximum dimension. FREE FLUID: None. US/US abdomen limited IMPRESSION: Diffuse mildly echogenic liver without focal lesion. Rest of the visualized pancreas, CBD and the right kidney appears unremarkable. Cholecystectomy.
== END 2023-01-10 08:51 | disposition home or self-care (01) ==
LOC: HO.US 08:50
PROVIDERS: PCP Internal Medicine; Visit Provider Nurse Practitioner
DX: K76.0 Fatty (change of) liver, not elsewhere classified (principal)
CPT/HCPCS: 76705

== ENCOUNTER 2023-01-18 14:36 | Outpatient (AMB) | payer OTHER, SELFPAY ==
--- NOTE | 2023-01-18 14:40 | MHC.OFFVIS ---
Intake Vital Signs 01/18/23 14:50 Height 5 ft 1 in Weight 142 lb 6.698 oz BMI 26.9 BP 104/58 L Blood Pressure Location Lt brachial Position Sitting Pulse 73 Intake Visit Reasons: acid reflex Intake Note: Raquel presents in 6 months follow up of US of abdomen. CC: Patient reports she was seen in the ER on 12/27 for abdominal pain and was diagnosed with Colitis. Patient was started on abx and states she is doing better. Patient reports occasional constipation and dyspaghia. Denies other GI symptoms or concerns. R And D Lab Technician Required: Yes R And D Lab Technician Name: daughter Allergies amoxicillin Allergy (Intermediate, Verified 01/18/23 14:56) Rash griseofulvin [From Candie-PEG (ultramicrosize)] Allergy (Intermediate, Verified 01/18/23 14:56) Rash octopus Allergy (Intermediate, Verified 01/18/23 14:56) Hives pregabalin [From Lyrica] Allergy (Intermediate, Verified 01/18/23 14:56) LEethargy, dizziness celecoxib [From Celebrex] Adverse Reaction (Intermediate, Verified 01/18/23 14:56) Problems with Liver dicyclomine Adverse Reaction (Mild, Verified 01/18/23 14:56) stomach upset oxycodone [From Percocet] Adverse Reaction (Mild, Verified 01/18/23 14:56) Lethargy morphine Adverse Reaction (Verified 01/18/23 14:56) Unknown MANDARIN ORANGES Allergy (Severe, Uncoded 01/06/23 14:20) Lip Swelling, Hives PARMELEX Allergy (Intermediate, Uncoded 01/06/23 14:20) Problems with Liver HPI acid reflex HPI Details Assessment & Plan (1) Dysphagia: ?Comment: solids and liquids ?Code(s): R13.10 - Dysphagia, unspecified ?Plan: Icelandic #[id number] She is agreeable to repeating her testing for her liver. She SAYS she developed sudden onset of dysphgaia in the oropharyngeal phase a month ago. She will feel like she is choking with both liquids and solids, and feels like food is stuck well above the sternal notch. She continues on her LInzess 145mcg and her esomeprazole. She has not needed the pepcid. She also continues on reglan 10mg qidachs with good control of her gastroparesis.? She cannot identify any preceding illness, medication changes or diet changes that cause this sudden onset of dysphagia. Her PCP ordered a regular barium swallow (modified with speech therapy would have been better) and it was normal. I will get and EGD and consider mod BS depending on the outcome of the EGD.? This sudden this of this change has me concerned about neurologic causes such as stroke.? I am ordering an ultrasound for her MONTESINOS follow-up and of course an EGD.? She is also due for labs to follow for MONTESINOS. Return office visit in 3 months and of course after her procedures. (2) Hepatic steatosis: ?Comment: Laboratory Tests baseline:? 10/2020 AST/ALT total bilirubin normal at 0.4, ferritin 191, alk-phos 120, hepatitis a B and C screens negative along with HIV screen, autoimmune work up negative. Baseline ultrasound with elastography 01/29/21 (F0) Current Laboratory Tests 08/24/2204/04/22 ?13:1310:44 Total Bilirubin 0.3 0.4 Direct Bilirubin < 0.2 AST 21 27 ALT 20 22 Alkaline Phosphatase 106 99 ULTRASOUND OF THE ABDOMEN? 07/21/21 IMPRESSION: Mild hepatic steatosis without focal lesion. ? The rest of the abdominal ultrasound is unremarkable. ?Code(s): K76.0 - Fatty (change of) liver, not elsewhere classified (3) Pre-op examination: ?Code(s): Z01.818 - Encounter for other preprocedural examination ? ? ? Orders: Orders Alpha Fetoprotein 07/22/22 K76.0 - Fatty (nesha nge of) liver, not elsewhere classif ied ? US abdomen limited 07/22/22 K76.0 - Fatty (nesha nge of) liver, not elsewhere classif ied ? Comprehensive Met. Panel 07/22/22 R13.10 - Dysphagia , unspecified, Z01 .818 - Encounter f or other preproced ural examination ? Medications: New linaclotide (Linze ss) 145 mcg PO DAILY 3 0 caps 6RF ? ? Refilled docusate sodium 100 mg PO TID 90 c aps 6RF K59.04 - Chronic i diopathic constipa tion ? esomeprazole magne sium 40 mg PO DAILY 30 caps 0RF K21.9 - Gastro-eso phageal reflux dis ease without esoph agitis ? famotidine 40 mg PO BEDTIME 9 0 tabs 2RF K21.9 - Gastro-eso phageal reflux dis ease without esoph agitis LABS Laboratory Tests 07/22/22 07/22/22 14:38 14:38 Total Bilirubin 0.5 AST 22 ALT 19 Alkaline Phosphata se [address] ABDOMEN PELVIS 12/28/22 FINDINGS: LUNG BASES: The visualized lung bases are unremarkable.? LIVER, GALLBLADDER, AND BILIARY TREE: The liver is normal in size, shape, and attenuation. No focal hepatic lesion or biliary ductal dilatation is present. Patient is status post cholecystectomy. PANCREAS: Unremarkable.? SPLEEN: Unremarkable.? ADRENAL GLANDS: Unremarkable.? KIDNEYS AND URETERS: Bilateral nephrograms are symmetric. No hydronephrosis or obstructing calculus identified. Mid left renal cyst noted; no follow-up recommended. BLADDER: Partially distended without significant wall thickening.? GASTROINTESTINAL TRACT: No evidence of bowel obstruction. There is sigmoid colon diverticulosis. There is a thick-walled appearance of the ascending colon, and to a lesser degree some mural prominence of the transverse and descending colon, suspicious for colitis. Appendix appears nondilated. No free fluid or free air is seen. ABDOMINAL WALL: No significant hernia is appreciated.? LYMPH NODES: There are multiple subcentimeter lymph nodes in the right mesentery. VASCULAR: Unremarkable. PELVIC VISCERA: Unremarkable. OSSEOUS STRUCTURES: There is facet arthropathy of the lower lumbar spine and scattered endplate osteophytes. CT/CT abdomen pelvis w IV con IMPRESSION: Thick-walled appearance of the ascending colon, and to a lesser degree some mural prominence of the transverse and descending colon. Appearance is suspicious for colitis, which may be infectious or inflammatory. Multiple subcentimeter lymph nodes in the right mesentery may be reactive in this setting. US ABDOMEN 01/11/23 FINDINGS: PANCREAS: Normal. LIVER: The liver is normal in size. The liver contour is normal. There is diffuse increased liver echogenicity. No focal hepatic lesion. There is no intrahepatic biliary duct dilatation seen. GALLBLADDER: Surgically absent. COMMON BILE DUCT: Normal in caliber measuring 0.6 cm in diameter. RIGHT KIDNEY: Normal. No hydronephrosis. No renal calculi or focal parenchymal lesions. The kidney measures 9.5 cm in maximum dimension. FREE FLUID: None. US/US abdomen limited IMPRESSION: Diffuse mildly echogenic liver without focal lesion. ? Rest of the visualized pancreas, CBD and the right kidney appears unremarkable. ? Cholecystectomy. EGD BIOPSY BARIUM SWALLLOW ORDERED BY PCP 07/05/22 MPRESSION: Unremarkable barium swallow exam. REVIEW OF THE ER NOTES 12/27/2022 History of Present Illness HPI narrative: This is a 88-aodc-vmi-female, with a hx of GERD, constipation, hepatic steatosis, presenting to the emergency department with complaint of right lower abdominal pain x 4 days. Symptoms worsening since. +nausea, low grade fevers, unable to tolerate PO. Last BM was yesterday, soft. RLQ pain on exam. VSS. has had cholescystectomy and cesearan sections, no other abd surgeries. Sent in by her PMD for concerns of obstruction.? Patient is not eating and pain, she has had obstruction in the past.? Physical Exam ED Vital Signs: Vital Signs - 24 hr ? 12/27/2313:34 12/28/2319:42 12/27/2320:40 Temperature 96.7 F L 97.3 F 97.8 F Pulse Rate 69 62 69 Respiratory Rate 16 18 18 Blood Pressure 102/54 L 121/61 125/64 Pulse Oximetry 98 98 98 Oxygen Delivery Me thod Room Air Room Air Room Air ? 12/27/2322:41 Temperature 97.7 F Pulse Rate 64 Respiratory Rate 16 Blood Pressure 131/68 Pulse Oximetry 98 Oxygen Delivery Me thod Room Air Medical Decision Making Differential Diagnosis Differential Diagnoses: The differential diagnosis associated with the presentation includes (bowel obstruction, diverticulitis, colitis were all considered) Admission/Observation Consideration of admission/observation: Escalation of care including admission/observation considered (62 yo female with history for bowel obstruction presents with increasing pain and decreasing intake was considered for admission upon arrival) Lab Data MDM Lab Attestation statement: I reviewed the patient's lab results. (normal WBC, normal lfts) She was discharged with only Flagyl ? TODAY'S VISIT Icelandic #dtr translates per pt request Her pain seemed to develop after eating [employer] and was in the RLQ. Her family thought it was a virus, but then the pain persisted. She had a low grade fever, nausea, and RLQ pain, no diarrhea. Her dtr was concerned re: appendicitis. She presented to the ER and a CT showed possible colitis of the ascending and transverse colon. They treated her with flagyl. She is feeling better now with occasional twinges of pain in the RLQ. She describes the pain as a bloated/full feeling that sounds colicky. The severity was 9/10. We had increased her LInzess to 145mcg and they feel it is moving her bowels well. She had a normal colonoscopy in 2019. She has not heard about scheduling her EGD yet for her dysphagia (oral phase) and I considered colonoscopy, but for now I think we will wait and watch. She had a barium swallow ordered by her PCP, but this did not examine the area of concern as would a mod barium swallow with speech therapy. I ordered this. She continues on her esomeprazole qam and famotidine qhs, and her colace. ROV 2 weeks. and after the mod barium swallow and EGD> PFSH Medical History (Updated 01/18/23 @ 16:22 by PRIMO John) Abdominal pain Allergic rhinitis Arthritis Carpal tunnel syndrome Dyspnea on exertion Elevated AST (SGOT) Epigastric pain Fibromyalgia Fibromyalgia Gastroparesis H. pylori infection Hearing loss Hyperlipidemia Ingrown toenail of right foot Iron deficiency anemia Midline thoracic back pain Muscle cramps Nausea Neuropathy Normocytic anemia Obesity (BMI 30-39.9) GRAYSON (obstructive sleep apnea) Physical exam Postmenopausal RUQ pain Small bowel obstruction Tendonitis Surgical History Family history of lipoma History of History of carpal tunnel repair History of endoscopy History of esophagogastroduodenoscopy (EGD) History of laparoscopic cholecystectomy History of left breast biopsy History of temporal artery biopsy History of varicose vein stripping Hx of colonoscopy Family History Father Heart disease Diabetes Hypertension Mother Diabetes Hypertension Arthritis Fibromyalgia Osteoporosis Sister Breast cancer Social History Household Members: Family Caregiver staying overnight: No Housing: Apartment Alcohol intake: never Patient Tobacco Use Status: Never used Tobacco e-Cigarette/Vaping Use: Never Used Second Hand Smoke Exposure: No service: No 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al status: disabled Cognitive needs: No Hearing needs: Yes Vision needs: No Review of Systems Const Denies fatigue, Denies fever(s), Denies night sweats, Denies poor appetite and Denies weight loss ENT Reports Normal hearing present, Denies dental pain, Reports dysphagia, Denies hearing loss, Denies mouth pain, Denies odynophagia, Denies throat swelling, Denies tongue swelling and Reports other (Dentition adequate) Card Reports no additional complaints Resp Reports no additional complaints GI Reports abdominal pain, Denies melena, Denies bloating, Denies hematochezia, Reports constipation, Denies GI cramping, Reports dysphagia, Denies excessive flatus, Denies early satiety, Reports heartburn, Denies diarrhea, Denies nausea, Denies odynophagia, Denies vomiting and Denies hematemesis Skin/Breast Denies pruritus, Denies lesions, Denies rash and Denies jaundice Neuro Reports Normal hearing present and Denies Abnormal speech present Endo Denies fatigue Aller/Immun Denies throat swelling and Denies tongue swelling Physical Exam Vital Signs: Last Vital Signs Pulse 73 01/18/23 14:50 BP 104/58 L 01/18/23 14:50 BMI result Body Mass Index 26.9 Const General: cooperative, no acute distress, well developed and well groomed Nutritional Appearance: well nourished and overweight Orientation/consciousness: oriented to person, oriented to place and oriented to time Limitations: language barrier HEENT Head: Yes normocephalic and Yes atraumatic Eyes General: appearance normal, both eyes and all related structures Pupils: Equal, round and reactive pupils present Neck Neck: Yes normal visual inspection and Yes no lymphadenopathy Thyroid: Thyroid normal Resp Effort & Inspection: normal respiratory effort and able to speak in complete sentences Auscultation: clear to auscultation bilaterally Cardio Rate: regular rate Rhythm: regular rhythm Heart sounds: Normal, physiologic split S2 sound present Peripheral pulses: radial pulses present and posterior tibial pulses present GI Inspection: No distended, No Abdominal panniculus present and Yes obesity Palpation (GI): Soft to palpation, nontender, no guarding, not rigid and No hepatosplenomegaly present Percussion: Yes normal to percussion Auscultation: normal bowel sounds Rectal Exam - Female: deferred Skin General skin exam: no rashes or lesions noted, turgor normal, skin not dry, no jaundice, No spider nevi and no striae Rashes: no rashes Nails: normal Neuro General: oriented to person, oriented to place and oriented to time Cranial nerves: Yes Equal, round and reactive pupils present and Yes Normal hearing present Speech: No Abnormal speech present Extrem General: Yes normal to inspection, No clubbing, No cyanosis and No edema Psych Appearance: grossly normal and well kempt Mental Status: mental status grossly normal Speech and movement: Normal speech and movement present Affect: normal affect Attitude: cooperative Thought process: Normal thought process present and not confabulating Thought content: Normal thought content present Insight: Limited insight present (Psych) Judgement: Limited judgement present (Psych) Results Reviewed Results Reviewed: Laboratory Tests 07/22/22 07/22/22 14:38 14:38 Total Bilirubin 0.5 AST 22 ALT 19 Alkaline Phosphatase [address] ABDOMEN PELVIS 12/28/22 FINDINGS: LUNG BASES: The visualized lung bases are unremarkable.? LIVER, GALLBLADDER, AND BILIARY TREE: The liver is normal in size, shape, and attenuation. No focal hepatic lesion or biliary ductal dilatation is present. Patient is status post cholecystectomy. PANCREAS: Unremarkable.? SPLEEN: Unremarkable.? ADRENAL GLANDS: Unremarkable.? KIDNEYS AND URETERS: Bilateral nephrograms are symmetric. No hydronephrosis or obstructing calculus identified. Mid left renal cyst noted; no follow-up recommended. BLADDER: Partially distended without significant wall thickening.? GASTROINTESTINAL TRACT: No evidence of bowel obstruction. There is sigmoid colon diverticulosis. There is a thick-walled appearance of the ascending colon, and to a lesser degree some mural prominence of the transverse and descending colon, suspicious for colitis. Appendix appears nondilated. No free fluid or free air is seen. ABDOMINAL WALL: No significant hernia is appreciated.? LYMPH NODES: There are multiple subcentimeter lymph nodes in the right mesentery. VASCULAR: Unremarkable. PELVIC VISCERA: Unremarkable. OSSEOUS STRUCTURES: There is facet arthropathy of the lower lumbar spine and scattered endplate osteophytes. CT/CT abdomen pelvis w IV con IMPRESSION: Thick-walled appearance of the ascending colon, and to a lesser degree some mural prominence of the transverse and descending colon. Appearance is suspicious for colitis, which may be infectious or inflammatory. Multiple subcentimeter lymph nodes in the right mesentery may be reactive in this setting. US ABDOMEN 01/11/23 FINDINGS: PANCREAS: Normal. LIVER: The liver is normal in size. The liver contour is normal. There is diffuse increased liver echogenicity. No focal hepatic lesion. There is no intrahepatic biliary duct dilatation seen. GALLBLADDER: Surgically absent. COMMON BILE DUCT: Normal in caliber measuring 0.6 cm in diameter. RIGHT KIDNEY: Normal. No hydronephrosis. No renal calculi or focal parenchymal lesions. The kidney measures 9.5 cm in maximum dimension. FREE FLUID: None. US/US abdomen limited IMPRESSION: Diffuse mildly echogenic liver without focal lesion. ? Rest of the visualized pancreas, CBD and the right kidney appears unremarkable. ? Cholecystectomy. BARIUM SWALLLOW ORDERED BY PCP 07/05/22 MPRESSION: Unremarkable barium swallow exam. REVIEW OF THE ER NOTES 12/27/2022 History of Present Illness HPI narrative: This is a 15-spbi-lij-female, with a hx of GERD, constipation, hepatic steatosis, presenting to the emergency department with complaint of right lower abdominal pain x 4 days. Symptoms worsening since. +nausea, low grade fevers, unable to tolerate PO. Last BM was yesterday, soft. RLQ pain on exam. VSS. has had cholescystectomy and cesearan sections, no other abd surgeries. Sent in by her PMD for concerns of obstruction.? Patient is not eating and pain, she has had obstruction in the past.? Physical Exam ED Vital Signs: Vital Signs - 24 hr ? 12/27/2313:34 12/28/2319:42 12/27/2320:40 Temperature 96.7 F L 97.3 F 97.8 F Pulse Rate 69 62 69 Respiratory Rate 16 18 18 Blood Pressure 102/54 L 121/61 125/64 Pulse Oximetry 98 98 98 Oxygen Delivery Method Room Air Room Air Room Air ? 12/27/2322:41 Temperature 97.7 F Pulse Rate 64 Respiratory Rate 16 Blood Pressure 131/68 Pulse Oximetry 98 Oxygen Delivery Method Room Air Medical Decision Making Differential Diagnosis Differential Diagnoses: The differential diagnosis associated with the presentation includes (bowel obstruction, diverticulitis, colitis were all considered) Admission/Observation Consideration of admission/observation: Escalation of care including admission/observation considered (62 yo female with history for bowel obstruction presents with increasing pain and decreasing intake was considered for admission upon arrival) Lab Data MDM Lab Attestation statement: I reviewed the patient's lab results. (normal WBC, normal lfts) She was discharged with only Flagyl ? Assessment & Plan Assessment & Plan (1) Hepatic steatosis: Comment: Laboratory Tests baseline: 10/2020 AST/ALT total bilirubin normal at 0.4, ferritin 191, alk-phos 120, hepatitis a B and C screens negative along with HIV screen, autoimmune work up negative. Baseline ultrasound with elastography 01/29/21 (F0) Current Laboratory Tests 07/22/2301/09/23 14:3814:38 Total Bilirubin 0.5 AST 22 ALT 19 Alkaline Phosphatase 86 Alpha Fetoprotein 3.5 US ABDOMEN 01/11/23 FINDINGS: PANCREAS: Normal. LIVER: The liver is normal in size. The liver contour is normal. There is diffuse increased liver echogenicity. No focal hepatic lesion. There is no intrahepatic biliary duct dilatation seen. GALLBLADDER: Surgically absent. COMMON BILE DUCT: Normal in caliber measuring 0.6 cm in diameter. RIGHT KIDNEY: Normal. No hydronephrosis. No renal calculi or focal parenchymal lesions. The kidney measures 9.5 cm in maximum dimension. FREE FLUID: None. US/US abdomen limited IMPRESSION: Diffuse mildly echogenic liver without focal lesion. ? Rest of the visualized pancreas, CBD and the right kidney appears unremarkable. ? Cholecystectomy. Code(s): K76.0 - Fatty (change of) liver, not elsewhere classified Plan: Icelandic #dtr translates per pt request Her pain seemed to develop after eating [employer] and was in the RLQ. Her family thought it was a virus, but then the pain persisted. She had a low grade fever, nausea, and RLQ pain, no diarrhea. Her dtr was concerned re: appendicitis. She presented to the ER and a CT showed possible colitis of the ascending and transverse colon. They treated her with flagyl. She is feeling better now with occasional twinges of pain in the RLQ. She describes the pain as a bloated/full feeling that sounds colicky. The severity was 9/10. We had increased her LInzess to 145mcg and they feel it is moving her bowels well. She had a normal colonoscopy in 2019. She has not heard about scheduling her EGD yet for her dysphagia (oral phase) and I considered colonoscopy, but for now I think we will wait and watch. She had a barium swallow ordered by her PCP, but this did not examine the area of concern as would a mod barium swallow with speech therapy. I ordered this. She continues on her esomeprazole qam and famotidine qhs, and her colace. ROV 2 weeks. and after the mod barium swallow and EGD> EGD BIOPSY (2) RLQ abdominal pain: Code(s): R10.31 - Right lower quadrant pain (3) Dysphagia: Comment: solids and liquids Code(s): R13.10 - Dysphagia, unspecified (4) Gastroparesis: Comment: 2019 GES - had been on reglan with good effect in the past, unsure why this was stopped.aeb Abnormal study. There is moderately severe abnormal retention of solid food in the stomach at 4 hours. REPORT SIGNED IN OTHER VENDOR SYSTEM 08/23/2019 Code(s): K31.84 - Gastroparesis (5) GERD (gastroesophageal reflux disease): Code(s): K21.9 - Gastro-esophageal reflux disease without esophagitis Qualifiers: Esophagitis presence: without esophagitis Qualified Code(s): K21.9 - Gastro-esophageal reflux disease without esophagitis (6) Chronic idiopathic constipation: Code(s): K59.04 - Chronic idiopathic constipation Orders: Orders [place] barium swallow modified Today R10.31 - Right lower quadrant pain, R13.10 - Dysphagia, unspecified Medications: Refilled docusate sodium 100 mg PO TID 90 caps 6RF K59.04 - Chronic idiopathic constipation linaclotide (Linzess) 145 mcg PO DAILY 30 caps 6RF Coding Level of Care Code Est Pt Level 4 (69905) Diagnoses Hepatic steatosis K76.0 RLQ abdominal pain R10.31 Dysphagia R13.10 Gastroparesis K31.84 GERD (gastroesophageal reflux disease) K21.9 Esophagitis presence: without esophagitis Chronic idiopathic constipation K59.04
[2023-01-18 14:50] VITALS: BP 104/58; PULSE 73; BMI 26.9
== END 2023-01-18 15:59 | disposition home or self-care (01) ==
PROVIDERS: PCP Internal Medicine; Visit Provider Nurse Practitioner
DX: K76.0 Fatty (change of) liver, not elsewhere classified (principal); R10.31 Right lower quadrant pain; R13.10 Dysphagia, unspecified; K31.84 Gastroparesis; K21.9 Gastro-esophageal reflux disease without esophagitis; K59.04 Chronic idiopathic constipation
CPT/HCPCS: 99214

== ENCOUNTER → 2023-01-18 14:36 | Outpatient (BNVA) | payer OTHER, SELFPAY | PROVIDERS: PCP Internal Medicine; Visit Provider Nurse Practitioner | DX: K76.0 Fatty (change of) liver, not elsewhere classified (principal); K31.84 Gastroparesis; K21.9 Gastro-esophageal reflux disease without esophagitis; K59.04 Chronic idiopathic constipation; R10.31 Right lower quadrant pain; R13.10 Dysphagia, unspecified | CPT/HCPCS: 99212 ==

== ENCOUNTER 2023-01-19 13:59 | Outpatient (REF) | payer OTHER, SELFPAY ==
--- NOTE | ~2023-01-19 | MM_ITS ---
EXAMINATION: MM SCREENING DIGITAL BREAST TOMOSYNTHESIS, BILATERAL CLINICAL INFORMATION: Screening. Asymptomatic. The lifetime risk of breast cancer based on the Tyrer-Cuzick Model is 10.8.%. COMPARISON: Mammography: This study is compared with prior exams dating back to 2018. TECHNIQUE: Digital breast tomosynthesis is performed in both the craniocaudal and mediolateral oblique views along with computer-aided detection (CAD). Synthesized 2D images are generated from the tomosynthesis. FINDINGS: There are scattered areas of fibroglandular density (ACR BI-RADS breast composition Category b). There are no significant masses, abnormal calcifications, or other abnormalities. There is a tissue marker in the upper outer quadrant of the left breast from prior benign percutaneous biopsy. MM/MM tomosynthesis screening BI IMPRESSION: No mammographic evidence of malignancy. ASSESSMENT: BI-RADS BI-RADS 2 - Benign Findings RECOMMENDATION: Routine annual mammography screening. 1 year F/U This examination should not preclude the clinical evaluation of a suspicious palpable abnormality. This patient's information was entered into a reminder system with a target due date for their next mammogram.
== END 2023-01-19 14:00 | disposition home or self-care (01) ==
LOC: HO.MAMMO 13:59
PROVIDERS: PCP Internal Medicine; Visit Provider Internal Medicine
DX: Z12.31 Encounter for screening mammogram for malignant neoplasm of breast (principal)
CPT/HCPCS: 77063; 77067

== ENCOUNTER → 2023-01-19 14:15 | Outpatient (BNV) | payer OTHER, SELFPAY | PROVIDERS: PCP Internal Medicine; Visit Provider Radiology Diagnostic Radiology | DX: Z12.31 Encounter for screening mammogram for malignant neoplasm of breast (principal) | CPT/HCPCS: 77063; 77067 ==

== ENCOUNTER 2023-01-20 11:22 | Outpatient (AMB) | payer OTHER, SELFPAY ==
--- NOTE | 2023-01-20 11:23 | A.OFFPC_ITS ---
Vital Signs 01/20/23 11:24 Height 5 ft 1 in Weight 142 lb 2 oz BMI 26.9 BP 102/60 Blood Pressure Location Lt brachial Position Sitting Pulse 69 Pulse Source Pulse Oximeter Pulse Oximetry (%) 98 Intake Visit Reasons: ED [facility] colitis 12/27/22 discharged on 12/28/22 Intake Note: pt is here for ED f/u for colitis 12/27/22 to 12/28/22 Advertising Manager Required: Yes Accompanied by: Self / Same As Patient Allergies amoxicillin Allergy (Intermediate, Verified 01/20/23 11:23) Rash griseofulvin [From Candie-PEG (ultramicrosize)] Allergy (Intermediate, Verified 01/20/23 11:23) Rash octopus Allergy (Intermediate, Verified 01/20/23 11:23) Hives pregabalin [From Lyrica] Allergy (Intermediate, Verified 01/20/23 11:23) LEethargy, dizziness celecoxib [From Celebrex] Adverse Reaction (Intermediate, Verified 01/20/23 11:23) Problems with Liver dicyclomine Adverse Reaction (Mild, Verified 01/20/23 11:23) stomach upset oxycodone [From Percocet] Adverse Reaction (Mild, Verified 01/20/23 11:23) Lethargy morphine Adverse Reaction (Verified 01/20/23 11:23) Unknown MANDARIN ORANGES Allergy (Severe, Uncoded 01/06/23 14:20) Lip Swelling, Hives PARMELEX Allergy (Intermediate, Uncoded 01/06/23 14:20) Problems with Liver Tobacco use date assessed: 09/22/22 Dental Screening Dental Screen Date: 01/20/23 Did you have a dental visit in the last 12 months?: Yes Did you have a dental problem in the last 6 months where you did not have access to dental care?: No Was dental information given to patient?: Patient has dentist HPI HPI Comments History of Present Illness Details 62-year-old female past medical history significant for gastroparesis, GERD, hepatic steatosis, chronic idiopathic constipation, GRAYSON, and iron deficiency anemia. Patient presents today for ER follow up from [facility] in December for RLQ pain x [address] showed colitis and patient was d/c home on Flagyl. Patient presents to appointment today accompanied by daughter who aids and interpretation. Patient denies any right lower quadrant pain, nausea, Marielle or constipation. Patient has seen Gastroenterology yesterday for her history of GERD, gastroparesis and reported difficulty swallowing. Patient's daughter reports that she is going to be scheduled for modified barium swallow and she is going to be having an upper endoscopy in the near future. Review of the notes colonoscopy repeat was considered for her suspicion of colitis however it was recently completed in 2019 and was normal, so they will continue to monitor patient for this. [facility] Medical History Abdominal pain Allergic rhinitis Arthritis Carpal tunnel syndrome Dyspnea on exertion Elevated AST (SGOT) Epigastric pain Fibromyalgia Fibromyalgia Gastroparesis H. pylori infection Hearing loss Hyperlipidemia Ingrown toenail of right foot Iron deficiency anemia Midline thoracic back pain Muscle cramps Nausea Neuropathy Normocytic anemia Obesity (BMI 30-39.9) GRAYSON (obstructive sleep apnea) Physical exam Postmenopausal RUQ pain Small bowel obstruction Tendonitis Surgical History Family history of lipoma History of History of carpal tunnel repair History of endoscopy History of esophagogastroduodenoscopy (EGD) History of laparoscopic cholecystectomy History of left breast biopsy History of temporal artery biopsy History of varicose vein stripping Hx of colonoscopy Family History Father Heart disease Diabetes Hypertension Mother Diabetes Hypertension Arthritis Fibromyalgia Osteoporosis Sister Breast cancer Social History Household Members: Family Caregiver staying overnight: No Housing: Apartment Alcohol intake: never Patient Tobacco Use Status: Never used Tobacco e-Cigarette/Vaping Use: Never Used Second Hand Smoke Exposure: No service: No 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al status: disabled Cognitive needs: No Hearing needs: Yes Vision needs: No Questionnaire Thrive Questionnaire Date Thrive assessed: 07/05/22 SUMMER-7 AMB Questionnaire SUMMER-7 Date SUMMER - 7 assessed: 07/05/22 Source: Developed by Drs. Reynaldo Denson, Marcia Bennett, Lewis Sifuentes and colleagues, with an educational poonam from [employer]. Review of Systems Const Denies chills, Denies fatigue, Denies fever(s) and Denies poor appetite Eyes Denies no additional complaints ENT Reports Normal hearing present Card Denies chest pain, Denies syncope, Denies rapid heart rate and Denies dyspnea Resp Denies cough and Denies dyspnea GI Denies change in stool character, Denies constipation, Denies diarrhea, Denies nausea and Denies vomiting Denies urinary frequency, Denies dysuria and Denies urinary urgency Neuro Reports Normal hearing present, Denies confusion and Denies syncope Psych Denies confusion Endo Denies fatigue Physical exam (Primary Care) Vital Signs: Last Vital Signs Pulse 69 01/20/23 11:24 BP 102/60 01/20/23 11:24 Pulse Ox 98 01/20/23 11:24 BMI result Body Mass Index 26.9 Tobacco/Smoking Status: Tobacco use Status Tobacco use date assessed 09/22/22 01/20/23 11:28 Patient Tobacco Use Status Never used Tobacco 01/20/23 11:28 e-Cigarette/Vaping Use Never Used 01/20/23 11:28 Thrive Assessment: Date of Thrive Assessment Date Thrive assessed 07/05/22 01/20/23 11:28 Const General: No confusion Orientation/consciousness: No confusion HENMT Head: Yes normocephalic and Yes atraumatic Eyes Conjunctivae: conjunctivae normal Chest Chest palpation & inspection: normal inspection of the chest Resp Effort & Inspection: normal respiratory effort Auscultation: clear to auscultation bilaterally, no crackles, no rhonchi and no wheezes Cardio Rate: regular rate Rhythm: regular rhythm Heart sounds: S1 normal heart sound present and S2 normal heart sound present GI Inspection: Yes normal to inspection Palpation (GI): Soft to palpation, nontender and No hepatosplenomegaly present Auscultation: normoactive bowel sounds Neuro General: No confusion Cranial nerves: Yes Normal hearing present Extrem General: No edema Assessment and Plan Assessment & Plan (1) Dysphagia: Comment: solids and liquids Code(s): R13.10 - Dysphagia, unspecified Plan: Continue follow-up with Gastroenterology and complete modified barium swallow and upper endoscopy. (2) GERD (gastroesophageal reflux disease): Code(s): K21.9 - Gastro-esophageal reflux disease without esophagitis Qualifiers: Esophagitis presence: without esophagitis Qualified Code(s): K21.9 - Gastro-esophageal reflux disease without esophagitis Plan: Continue on esomeprazole and famotidine. Avoid the foods that cause that, usually spicy foods, tomato products, juices, coffee, soda and foods that you're sensitive to.? After eating do not lie down, allow 3-4 hours before lying down. And keep the head of the bed above 30 degrees to avoid the acid from going up. (3) Colitis: Code(s): K52.9 - Noninfective gastroenteritis and colitis, unspecified Plan: Continue to follow-up gastroenterology. Plan Keep scheduled annula exam with pcp or follow up sooner if needed. Medications: Refilled aspirin 81 mg PO DAILY 90 tabs 3RF Coding Level of Care Code Est Pt Level 3 (52709) Diagnoses Dysphagia R13.10 GERD (gastroesophageal reflux disease) K21.9 Esophagitis presence: without esophagitis Colitis K52.9
[2023-01-20 11:24] VITALS: BP 102/60; PULSE 69; O2SAT 98; BMI 26.9
== END 2023-01-20 12:39 | disposition home or self-care (01) ==
PROVIDERS: PCP Internal Medicine; Visit Provider Nurse Practitioner Family
DX: R13.10 Dysphagia, unspecified (principal); K21.9 Gastro-esophageal reflux disease without esophagitis; K52.9 Noninfective gastroenteritis and colitis, unspecified
CPT/HCPCS: 99213

== ENCOUNTER 2023-01-21 13:25 | Day surgery (SDC) | payer OTHER, SELFPAY ==
--- NOTE | 2023-01-20 10:45 | HO.ANESPROP2 ---
HPI - Anesthesia Eval Consult details Narrative: 62yo F for Upper Endoscopy PMFSH Active Problems Active Problems: All Active Problems (Updated 01/18/23 @ 16:22 by PRIMO John) RLQ abdominal pain (Acute) Pre-op examination (Acute) Skin lesion of scalp (Acute) Dysphagia (Acute) Gastroparesis (Acute) Postmenopausal (Acute) Muscle cramps (Acute) Physical exam (Acute) GERD (gastroesophageal reflux disease) (Acute) Trapezius muscle strain (Acute) Left shoulder pain (Acute) Thoracic radiculitis (Acute) Otitis media (Acute) Lorene infection of genital region (Acute) Otitis externa (Acute) UTI (urinary tract infection) (Acute) Hepatic steatosis (Acute) Chest pain (Acute) Chronic idiopathic constipation (Acute) Pain of paraspinal muscle (Acute) Degenerative disc disease, thoracic (Acute) Spondylosis, thoracic (Acute) Allergic rhinitis (Acute) Ingrown toenail of right foot (Acute) Dyspnea on exertion (Acute) Obesity (BMI 30-39.9) (Acute) GRAYSON (obstructive sleep apnea) (Acute) Iron deficiency anemia (Acute) Normocytic anemia (Acute) Past Medical History Medical History (Updated 01/18/23 @ 16:22 by PRIMO John) Abdominal pain Allergic rhinitis Arthritis Carpal tunnel syndrome Dyspnea on exertion Elevated AST (SGOT) Epigastric pain Fibromyalgia Fibromyalgia Gastroparesis H. pylori infection Hearing loss Hyperlipidemia Ingrown toenail of right foot Iron deficiency anemia Midline thoracic back pain Muscle cramps Nausea Neuropathy Normocytic anemia Obesity (BMI 30-39.9) GRAYSON (obstructive sleep apnea) Physical exam Postmenopausal RUQ pain Small bowel obstruction Tendonitis Family History Family History Father Heart disease Diabetes Hypertension Mother Diabetes Hypertension Arthritis Fibromyalgia Osteoporosis Sister Breast cancer Family history of problems with anesthesia: No Surgical History Surgical History Family history of lipoma History of History of carpal tunnel repair History of endoscopy History of esophagogastroduodenoscopy (EGD) History of laparoscopic cholecystectomy History of left breast biopsy History of temporal artery biopsy History of varicose vein stripping Hx of colonoscopy Social History Social History (Reviewed 01/18/23 @ 15:01 by SUMIT Toscano Household Members: Family Housing: Apartment Alcohol intake: never Patient Tobacco Use Status: Never used Tobacco e-Cigarette/Vaping Use: Never Used Second Hand Smoke Exposure: No service: No 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al status: disabled Cognitive needs: No Hearing needs: Yes Vision needs: No Meds Allergies Allergy/AdvReac Type Severity Reaction Status Date / Time amoxicillin Allergy Intermediate Rash Verified 01/18/23 14:56 griseofulvin Allergy Intermediate Rash Verified 01/18/23 14:56 [From Candie-PEG (ultramicrosize)] octopus Allergy Intermediate Hives Verified 01/18/23 14:56 pregabalin [From Lyrica] Allergy Intermediate LEethargy, Verified 01/18/23 14:56 dizziness celecoxib [From Celebrex] AdvReac Intermediate Problems Verified 01/18/23 14:56 with Liver dicyclomine AdvReac Mild stomach Verified 01/18/23 14:56 upset oxycodone [From Percocet] AdvReac Mild Lethargy Verified 01/18/23 14:56 morphine AdvReac Unknown Verified 01/18/23 14:56 MANDARIN ORANGES Allergy Severe Lip Uncoded 01/06/23 14:20 Swelling, Hives PARMELEX Allergy Intermediate Problems Uncoded 01/06/23 14:20 with Liver Home Medications Medication Instructions Recorded Confirmed Last Taken Type acetaminophen 500 mg tablet 1,000 mg PO BID PRN Pain (Scale 01/08/21 09/22/22 Unknown History Score 1-3) ascorbic acid (vitamin C) 1,000 mg 1 g PO BID 01/18/23 Unknown History capsule coenzyme Q10 200 mg/gram oral mg PO 01/18/23 Unknown History powder (H2Q CoQ10) fluocinonide 0.05 % topical topical BID PRN 01/18/23 Unknown History ointment magnesium oxide 800 mg PO DAILY 01/18/23 Unknown History tacrolimus 0.1 % topical ointment topical 01/18/23 Unknown History vitamin B complex 1 tab PO DAILY 01/18/23 Unknown History Exam Exam Date and Time: January 20, 2023 1045 Pertinent Lab Results Pertinent Lab Results: Laboratory Tests 12/27/22 12/27/22 14:55 14:55 WBC 5.6 Hgb 12.1 Hct 36.7 L Plt Count 237 Sodium 142 Potassium 3.7 Chloride 107 Carbon Dioxide 27 BUN 8 L Creatinine 0.60 Assessment and Plan Assessment Anesthesia Assessment: Chart Reviewed Final Anesthetic Review Family History of Problems with Anesthesia: No
[2023-01-21 14:19] VITALS: BP 129/67; PULSE 69; RESP 6; TEMP 36.1; O2SAT 95; BMI 26.8
[2023-01-21] MEDS: Lactated Ringers 1,000 ML 100 ML IVCONT (14:30)
--- NOTE | 2023-01-21 16:26 | HO.ANESPROP2 ---
[facility] Active Problems Active Problems: All Active Problems (Updated 01/18/23 @ 16:22 by PRIMO John) RLQ abdominal pain (Acute) Pre-op examination (Acute) Skin lesion of scalp (Acute) Dysphagia (Acute) Gastroparesis (Acute) Postmenopausal (Acute) Muscle cramps (Acute) Physical exam (Acute) GERD (gastroesophageal reflux disease) (Acute) Trapezius muscle strain (Acute) Left shoulder pain (Acute) Thoracic radiculitis (Acute) Otitis media (Acute) Lorene infection of genital region (Acute) Otitis externa (Acute) UTI (urinary tract infection) (Acute) Hepatic steatosis (Acute) Chest pain (Acute) Chronic idiopathic constipation (Acute) Pain of paraspinal muscle (Acute) Degenerative disc disease, thoracic (Acute) Spondylosis, thoracic (Acute) Allergic rhinitis (Acute) Ingrown toenail of right foot (Acute) Dyspnea on exertion (Acute) Obesity (BMI 30-39.9) (Acute) GRAYSON (obstructive sleep apnea) (Acute) Iron deficiency anemia (Acute) Normocytic anemia (Acute) Past Medical History Medical History Abdominal pain Allergic rhinitis Arthritis Carpal tunnel syndrome Dyspnea on exertion Elevated AST (SGOT) Epigastric pain Fibromyalgia Fibromyalgia Gastroparesis H. pylori infection Hearing loss Hyperlipidemia Ingrown toenail of right foot Iron deficiency anemia Midline thoracic back pain Muscle cramps Nausea Neuropathy Normocytic anemia Obesity (BMI 30-39.9) GRAYSON (obstructive sleep apnea) Physical exam Postmenopausal RUQ pain Small bowel obstruction Tendonitis Family History Family History Father Heart disease Diabetes Hypertension Mother Diabetes Hypertension Arthritis Fibromyalgia Osteoporosis Sister Breast cancer Family history of problems with anesthesia: No Surgical History Surgical History Family history of lipoma History of History of carpal tunnel repair History of endoscopy History of esophagogastroduodenoscopy (EGD) History of laparoscopic cholecystectomy History of left breast biopsy History of temporal artery biopsy History of varicose vein stripping Hx of colonoscopy History of Problems with Anesthesia: No Social History Social History Household Members: Family Housing: Apartment Alcohol intake: never Patient Tobacco Use Status: Never used Tobacco e-Cigarette/Vaping Use: Never Used Second Hand Smoke Exposure: No Use of substances other than those prescribed or required for medical reasons: No Are you DNR?: No Advance Directives: No Advance Directives Information Provided: Yes Advance Directives on File: No service: No 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al status: disabled Cognitive needs: No Hearing needs: Yes Vision needs: No Meds Allergies Allergy/AdvReac Type Severity Reaction Status Date / Time amoxicillin Allergy Intermediate Rash Verified 01/20/23 11:23 griseofulvin Allergy Intermediate Rash Verified 01/20/23 11:23 [From Candie-PEG (ultramicrosize)] octopus Allergy Intermediate Hives Verified 01/20/23 11:23 pregabalin [From Lyrica] Allergy Intermediate LEethargy, Verified 01/20/23 11:23 dizziness celecoxib [From Celebrex] AdvReac Intermediate Problems Verified 01/20/23 11:23 with Liver dicyclomine AdvReac Mild stomach Verified 01/20/23 11:23 upset oxycodone [From Percocet] AdvReac Mild Lethargy Verified 01/20/23 11:23 morphine AdvReac Unknown Verified 01/20/23 11:23 MANDARIN ORANGES Allergy Severe Lip Uncoded 01/06/23 14:20 Swelling, Hives PARMELEX Allergy Intermediate Problems Uncoded 01/06/23 14:20 with Liver Active Medications: Current Medications Lactated Ringer's (Lr) 1,000 mls @ 100 mls/hr IVCONT .Q10H RYAN Last Admin: 01/21/23 14:30 Dose: 100 mls/hr Home Medications Medication Instructions Recorded Confirmed Last Taken Type acetaminophen 500 mg tablet 1,000 mg PO BID PRN Pain (Scale 01/08/21 09/22/22 Unknown History Score 1-3) ascorbic acid (vitamin C) 1,000 mg 1 g PO BID 01/18/23 Unknown History capsule coenzyme Q10 200 mg/gram oral mg PO 01/18/23 Unknown History powder (H2Q CoQ10) fluocinonide 0.05 % topical topical BID PRN 01/18/23 Unknown History ointment magnesium oxide 800 mg PO DAILY 01/18/23 Unknown History tacrolimus 0.1 % topical ointment topical 01/18/23 Unknown History vitamin B complex 1 tab PO DAILY 01/18/23 Unknown History Exam Exam Date and Time: January 21, 2023 1626 Height,Weight and Vital Signs: Height 5 ft 1 in Weight 64.41 kg Last Vital Signs Temp 96.9 F 01/21/23 14:19 Pulse 69 01/21/23 14:19 Resp 6 L 01/21/23 14:19 BP 129/67 01/21/23 14:19 Pulse Ox 95 01/21/23 14:19 O2 Del Method Room Air 01/21/23 14:19 Airway Mallampati Class: II TM Dist: >3cm Neck ROM: Full Assessment and Plan Assessment Anesthesia Assessment: Anesthesia Plan Discussed and Chart Reviewed Final Anesthetic Review Family History of Problems with Anesthesia: No History of Problems with Anesthesia: No NPO: Yes ASA Class: III Final Preanesthetic Review: No Changes in Pt Med Stat, Meds/Allgs Chart Reviewed, Consent Obtained/Reviewed and Anes Risks/Benef Reviewed Patient Risk: Intermediate Procedure Risk: Low Anesthetic Plan Anesthetic Plan: MAC: Disposition: Standard PACU
--- NOTE | 2023-01-21 16:31 | MHC.SHP ---
Pre-Procedural Eval Section A Date of Service: 01/21/23 The patient is an INPATIENT: No Changes since office visit: Yes Patient answered all questions; No Cold of Flu in the past 2 weeks, No New Medical Problems and No Changes in Medication The History & Physical has been completed within 30 days and I have reviewed it.: Yes Section B Chief Complaint: GERD, Gastroparesis, Dysphagia, unspecified Allergies: Allergies Allergy/AdvReac Type Severity Reaction Status Date / Time amoxicillin Allergy Intermediate Rash Verified 01/20/23 11:23 griseofulvin Allergy Intermediate Rash Verified 01/20/23 11:23 [From Candie-PEG (ultramicrosize)] octopus Allergy Intermediate Hives Verified 01/20/23 11:23 pregabalin [From Lyrica] Allergy Intermediate LEethargy, Verified 01/20/23 11:23 dizziness celecoxib [From Celebrex] AdvReac Intermediate Problems Verified 01/20/23 11:23 with Liver dicyclomine AdvReac Mild stomach Verified 01/20/23 11:23 upset oxycodone [From Percocet] AdvReac Mild Lethargy Verified 01/20/23 11:23 morphine AdvReac Unknown Verified 01/20/23 11:23 MANDARIN ORANGES Allergy Severe Lip Uncoded 01/06/23 14:20 Swelling, Hives PARMELEX Allergy Intermediate Problems Uncoded 01/06/23 14:20 with Liver Plan I have reviewed the history and physical and performed a pertinent physical examination on my patient. No changes have occurred unless specified. Time Spent With Patient Time: Total time managing care of this patient today ____ minutes.
--- NOTE | 2023-01-21 16:31 | W.PM.OPN ---
Operative Note Operative Note Date of Service: 01/21/23 Narrative: FLEXIBLE TRANSORAL UPPER GASTROINTESTINAL ENDOSCOPY WITH BIOPSIES Pre-op diagnosis: GERD, dysphagia, gastroparesis Post-op diagnosis: GERD, dysphagia, gastritis Endoscopist:? Cordell Jacobsen MD Anesthesia:?MAC Consent: Indications for the procedure and potential complications of bleeding, perforation, reaction to medications and missed diagnosis were discussed with the patient with the help of a [facility] slope runner and informed consent was obtained. Instrument: Olympus GIF H 190 mid size upper endoscope Monitoring: Vital signs and clinical assessment, continuous EKG monitoring, Pulse oximetry, Carbon Dioxide monitoring and blood pressure monitoring were done throughout the procedure. Procedure: The patient was placed in the left lateral decubitis position and pre-procedure medications were administered and a bite block was placed. The endoscope was inserted into the mouth and advanced under direct vision to the third part of duodenum. A careful inspection was made as the upper endoscope was withdrawn including a retroflexed examination of the proximal stomach; Findings and interventions are described below. Findings: Larynx: Normal Esophagus: GE junction at 35 cms. No esophagitis. Irregular Z line with ? 1 cms tongue of possible Wilson's - biopsied. No stricture or ring noted in the esophagus. Esophagus was dilated with a 20 mm (60F) CRE balloon x 60 sec Stomach: Mild gastric erythema. Biopsies were obtained. Grade 2 flap valve on retroflexed examination of the cardia. Duodenum: Normal bulb and descending duodenum Intervention: Biopsies and empiric esophageal balloon dilation as noted above Impression and Post Procedure Diagnosis: Endoscopy Findings: ESOPHAGUS: Irregular Z line with ? 1 cms tongue of possible Wilson's - biopsied. No stricture or ring noted in the esophagus. Esophagus was dilated with a 20 mm (60F) CRE balloon x 60 sec STOMACH: Mild antral gastritis Plan: Await pathology results Patient has an appointment on 02/01/23 in the GI Clinic with Shraddha Melvin NP. Above findings were reviewed with the patient with the help of an [facility] [place] sign language interpreter and GERD handout was given in the discharge area
[2023-01-21 17:00] VITALS: BP 101/51; PULSE 72; RESP 15; TEMP 36.8; O2SAT 96
[2023-01-21 17:15] VITALS: BP 115/62; PULSE 69; RESP 16; O2SAT 97
[2023-01-21 17:30] VITALS: BP 140/76; PULSE 60; RESP 16; TEMP 36.8; O2SAT 98
== END 2023-01-21 17:50 | disposition home or self-care (01) ==
PROVIDERS: PCP Internal Medicine; Visit Provider Internal Medicine Gastroenterology
PROC: 0DJ08ZZ Inspection of Upper Intestinal Tract, Via Natural or Artificial Opening Endoscopic (ICD-10-PCS; CPT 43235; principal; 2023-01-21 15:10)
DX: R13.10 Dysphagia, unspecified (principal); K31.84 Gastroparesis; K21.9 Gastro-esophageal reflux disease without esophagitis; K29.50 Unspecified chronic gastritis without bleeding; K22.89 Other specified disease of esophagus; G47.33 Obstructive sleep apnea (adult) (pediatric); Z88.1 Allergy status to other antibiotic agents; Z88.8 Allergy status to other drugs, medicaments and biological substances; Z79.899 Other long term (current) drug therapy
CPT/HCPCS: 43249; 43239; 88305; 88342; C1726

== ENCOUNTER → 2023-01-21 13:25 | Outpatient (BNV) | payer OTHER, SELFPAY | PROVIDERS: PCP Internal Medicine; Visit Provider Internal Medicine Gastroenterology | DX: R13.10 Dysphagia, unspecified (principal); K29.70 Gastritis, unspecified, without bleeding; K21.9 Gastro-esophageal reflux disease without esophagitis | CPT/HCPCS: 43239; 43249 ==

== ENCOUNTER 2023-02-01 12:10 | Outpatient (AMB) | payer OTHER, SELFPAY ==
--- NOTE | 2023-02-01 12:16 | A.OFFVIS_ITS ---
Intake Vital Signs 02/01/23 12:17 Height 5 ft 1 in Weight 143 lb 11.862 oz BMI 27.2 BP 117/58 L Blood Pressure Location Lt brachial Position Sitting Pulse 68 Intake Visit Reasons: F/u EGD 01/21/23 w/Dr. 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 Accompanied by: Daughter Allergies amoxicillin Allergy (Intermediate, Verified 02/01/23 12:16) Rash griseofulvin [From Candie-PEG (ultramicrosize)] Allergy (Intermediate, Verified 02/01/23 12:16) Rash octopus Allergy (Intermediate, Verified 02/01/23 12:16) Hives pregabalin [From Lyrica] Allergy (Intermediate, Verified 02/01/23 12:16) LEethargy, dizziness celecoxib [From Celebrex] Adverse Reaction (Intermediate, Verified 02/01/23 12:16) Problems with Liver dicyclomine Adverse Reaction (Mild, Verified 02/01/23 12:16) stomach upset oxycodone [From Percocet] Adverse Reaction (Mild, Verified 02/01/23 12:16) Lethargy morphine Adverse Reaction (Verified 02/01/23 12:16) Unknown MANDARIN ORANGES Allergy (Severe, Uncoded 02/01/23 12:16) Lip Swelling, Hives PARMELEX Allergy (Intermediate, Uncoded 02/01/23 12:16) Problems with Liver HPI F/u EGD 01/21/23 w/Dr. Jacobsen HPI Details Assessment & Plan (1) Hepatic steatosis: ?Comment: Laboratory Tests baseline:? 10/2020 AST/ALT total bilirubin normal at 0.4, ferritin 191, alk-phos 120, hepatitis a B and C screens negative along with HIV screen, autoimmune work up negative. Baseline ultrasound with elastography 01/29/21 (F0) Current Laboratory Tests 07/22/2301/09/23 ?[id number] Total Bilirubin 0.5 AST 22 ALT 19 Alkaline Phosphatase 86 Alpha Fetoprotein 3.5 US ABDOMEN ? 01/11/23 FINDINGS: PANCREAS: Normal. LIVER: The liver is normal in size. The liver contour is normal. There is diffuse increased liver echogenicity. No focal hepatic lesion. There is no intrahepatic biliary duct dilatation seen. GALLBLADDER: Surgically absent. COMMON BILE DUCT: Normal in caliber measuring 0.6 cm in diameter. RIGHT KIDNEY: Normal. No hydronephrosis. No renal calculi or focal parenchymal lesions. The kidney measures 9.5 cm in maximum dimension. FREE FLUID: None. US/US abdomen limited IMPRESSION: Diffuse mildly echogenic liver without focal lesion. ? Rest of the visualized pancreas, CBD and the right kidney appears unremarkable. ? Cholecystectomy. ?Code(s): K76.0 - Fatty (change of) liver, not elsewhere classified ?Plan: [place] #dtr translates per pt request Her pain seemed to develop after eating [employer] and was in the RLQ. Her family thought it was a virus, but then the pain persisted. She had a low grade fever, nausea, and RLQ pain, no diarrhea. Her dtr was concerned re: appendicitis. She presented to the ER and a CT showed possible colitis of the ascending and transverse colon. They treated her with flagyl. She is feeling better now with occasional twinges of pain in the RLQ. She describes the pain as a bloated/full feeling that sounds colicky. The severity was 9/10. We had increased her LInzess to 145mcg and they feel it is moving her bowels well. She had a normal colonoscopy in 2019. She has not heard about scheduling her EGD yet for her dysphagia (oral phase) and I considered colonoscopy, but for now I think we will wait and watch. She had a barium swallow ordered by her PCP, but this did not examine the area of concern as would a mod barium swallow with speech therapy. I ordered this. She continues on her esomeprazole qam and famotidine qhs, and her colace. ROV 2 weeks. and after the mod barium swallow and EGD> (2) RLQ abdominal pain: ?Code(s): R10.31 - Right lower quadrant pain (3) Dysphagia: ?Comment: solids and liquids ?Code(s): R13.10 - Dysphagia, unspecified (4) Gastroparesis: ?Comment: 2020 GES - had been on reglan with good effect in the past, unsure why this was stopped.aeb Abnormal study. There is moderately severe abnormal retention of solid food in the stomach at 4 hours. REPORT SIGNED IN OTHER VENDOR SYSTEM 08/23/2019 ?Code(s): K31.84 - Gastroparesis (5) GERD (gastroesophageal reflux disease): ?Code(s): K21.9 - Gastro-esophageal reflux disease without esophagitis ?Qualifiers: ?Esophagitis presence:?without esophagitis? Qualified Code(s):?K21.9 - Gastro-esophageal reflux disease without esophagitis (6) Chronic idiopathic constipation: ?Code(s): K59.04 - Chronic idiopathic constipation ? ? ? Orders: Orders [place] barium swallow modified Today R10.31 - Right low er quadrant pain, R13.10 - Dysphagia , unspecified ? Medications: Refilled docusate sodium 100 mg? PO TID 90 caps 6RF K59.04 - Chronic i diopathic constipa tion ? linaclotide (Linze ss) 145 mcg? PO DAILY 30 caps 6RF ? ? EGD 01/24/23 Findings: Larynx:? Normal Esophagus: GE junction at 35 cms. No esophagitis. Irregular Z line with ? 1 cms tongue of possible Wilson's - biopsied. No stricture or ring noted in the esophagus. Esophagus was dilated with a 20 mm (60F) CRE balloon x 60 sec Stomach: Mild gastric erythema. Biopsies were obtained. Grade 2 flap valve on retroflexed examination of the cardia. Duodenum: Normal bulb and descending duodenum Intervention: Biopsies and empiric esophageal balloon dilation as noted above Impression and Post Procedure Diagnosis: Endoscopy Findings: ESOPHAGUS: Irregular Z line with ? 1 cms tongue of possible Wilson's - biopsied. No stricture or ring noted in the esophagus. Esophagus was dilated with a 20 mm (60F) CRE balloon x 60 sec STOMACH: Mild antral gastritis Received: 01/24/23 Diagnosis A.? Stomach, antrum, biopsy:? Antral-type and oxyntic mucosa with mild chronic inactive inflammation; no Helicobacter organisms seen. B.? Esophagus, distal, biopsy: - Cardiofundic-type mucosa with mild chronic inactive inflammation; no intestinal metaplasia seen. - Squamous mucosa within normal limits. Modified barium swallow It is scheduled for 03/02 SPEECH THERAPY REPORT ? TODAY'S VISIT [place]ian #dtr translates per pt request She tolerated the procedure well. She says her swallowing only responded to the dilation by 50%. We will need to decide if she needs serial dilations since the manifestation of her dysphagia is in the upper area. She has the mod barium swallow coming up to see if there is any neurologic/coordination problems c/t the swallowing. She is trying to use magnesium for her CIC instead of daily LInzess and colace and she is using it prn. She still has lingering RLQ pain that may be bowel spasm, so we discuss tincture of peppermint ior IB Guard. She is only taking esomeprazole and not the famotidine, so we will d/c it. ROV Mod barium swallow. IB guard samples given [facility] Medical History Abdominal pain Allergic rhinitis Arthritis Carpal tunnel syndrome Dyspnea on exertion Elevated AST (SGOT) Epigastric pain Fibromyalgia Fibromyalgia Gastroparesis H. pylori infection Hearing loss Hyperlipidemia Ingrown toenail of right foot Iron deficiency anemia Midline thoracic back pain Muscle cramps Nausea Neuropathy Normocytic anemia Obesity (BMI 30-39.9) GRAYSON (obstructive sleep apnea) Physical exam Postmenopausal RUQ pain Small bowel obstruction Tendonitis Surgical History Family history of lipoma History of History of carpal tunnel repair History of endoscopy History of esophagogastroduodenoscopy (EGD) History of laparoscopic cholecystectomy History of left breast biopsy History of temporal artery biopsy History of varicose vein stripping Hx of colonoscopy Family History Father Heart disease Diabetes Hypertension Mother Diabetes Hypertension Arthritis Fibromyalgia Osteoporosis Sister Breast cancer Social History Household Members: Family Caregiver staying overnight: No Housing: Apartment Alcohol intake: never Patient Tobacco Use Status: Never used Tobacco e-Cigarette/Vaping Use: Never Used Second Hand Smoke Exposure: No service: No 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al status: disabled Cognitive needs: No Hearing needs: Yes Vision needs: No Review of Systems Const Denies fatigue, Denies fever(s), Denies night sweats, Denies poor appetite and Denies weight loss ENT Reports Normal hearing present, Denies dental pain, Reports dysphagia, Denies hearing loss, Denies mouth pain, Denies odynophagia, Denies throat swelling, Denies tongue swelling and Reports other (Dentition adequate) Card Reports no additional complaints Resp Reports no additional complaints GI Denies abdominal pain, Denies melena, Denies bloating, Denies hematochezia, Reports constipation, Denies GI cramping, Reports dysphagia, Denies excessive flatus, Denies early satiety, Reports heartburn, Denies diarrhea, Denies nausea, Denies odynophagia, Denies vomiting and Denies hematemesis Skin/Breast Denies pruritus, Denies lesions, Denies rash and Denies jaundice Neuro Reports Normal hearing present and Denies Abnormal speech present Endo Denies fatigue Aller/Immun Denies throat swelling and Denies tongue swelling Physical Exam Vital Signs: Last Vital Signs Pulse 68 02/01/23 12:17 BP 117/58 L 02/01/23 12:17 BMI result Body Mass Index 27.2 Const General: cooperative, no acute distress, well developed and well groomed Nutritional Appearance: average body habitus and well nourished Orientation/consciousness: oriented to person, oriented to place and oriented to time Limitations: language barrier HEENT Other: bilateral ANN Head: Yes normocephalic and Yes atraumatic Eyes General: appearance normal, both eyes and all related structures Pupils: Equal, round and reactive pupils present Neck Neck: Yes normal visual inspection and Yes no lymphadenopathy Thyroid: Thyroid normal Resp Effort & Inspection: normal respiratory effort and able to speak in complete sentences Auscultation: clear to auscultation bilaterally Cardio Rate: regular rate Rhythm: regular rhythm Heart sounds: Normal, physiologic split S2 sound present Peripheral pulses: radial pulses present and posterior tibial pulses present GI Inspection: No distended and No Abdominal panniculus present Palpation (GI): Soft to palpation, nontender, no guarding, not rigid and No hepatosplenomegaly present Percussion: Yes normal to percussion Auscultation: normal bowel sounds Rectal Exam - Female: deferred Skin General skin exam: no rashes or lesions noted, turgor normal, skin not dry, no jaundice, No spider nevi and no striae Rashes: no rashes Nails: normal Neuro General: oriented to person, oriented to place and oriented to time Cranial nerves: Yes Equal, round and reactive pupils present and Yes Normal hearing present Speech: No Abnormal speech present Extrem General: Yes normal to inspection, No clubbing, No cyanosis and No edema Psych Appearance: grossly normal and well kempt Mental Status: mental status grossly normal Speech and movement: Normal speech and movement present Affect: normal affect Attitude: cooperative Thought process: Normal thought process present and not confabulating Thought content: Normal thought content present Insight: Limited insight present (Psych) Judgement: Limited judgement present (Psych) Results Reviewed Results Reviewed: EGD 01/24/23 Findings: Larynx:? Normal Esophagus: GE junction at 35 cms. No esophagitis. Irregular Z line with ? 1 cms tongue of possible Wilson's - biopsied. No stricture or ring noted in the esophagus. Esophagus was dilated with a 20 mm (60F) CRE balloon x 60 sec Stomach: Mild gastric erythema. Biopsies were obtained. Grade 2 flap valve on retroflexed examination of the cardia. Duodenum: Normal bulb and descending duodenum Intervention: Biopsies and empiric esophageal balloon dilation as noted above Impression and Post Procedure Diagnosis: Endoscopy Findings: ESOPHAGUS: Irregular Z line with ? 1 cms tongue of possible Wilson's - biopsied. No stricture or ring noted in the esophagus. Esophagus was dilated with a 20 mm (60F) CRE balloon x 60 sec STOMACH: Mild antral gastritis Received: 01/24/23 Diagnosis A.? Stomach, antrum, biopsy:? Antral-type and oxyntic mucosa with mild chronic inactive inflammation; no Helicobacter organisms seen. B.? Esophagus, distal, biopsy: - Cardiofundic-type mucosa with mild chronic inactive inflammation; no intestinal metaplasia seen. - Squamous mucosa within normal limits. Assessment & Plan Assessment & Plan (1) Dysphagia: Comment: solids and liquids Code(s): R13.10 - Dysphagia, unspecified Plan: [place] #dtr translates per pt request She tolerated the procedure well. She says her swallowing only responded to the dilation by 50%. We will need to decide if she needs serial dilations since the manifestation of her dysphagia is in the upper area. She has the mod barium swallow coming up to see if there is any neurologic/coordination problems c/t the swallowing. She is trying to use magnesium for her CIC instead of daily LInzess and colace and she is using it prn. She still has lingering RLQ pain that may be bowel spasm, so we discuss tincture of peppermint ior IB Guard. She is only taking esomeprazole and not the famotidine, so we will d/c it. ROV Mod barium swallow. IB guard samples given Modified barium swallow It is scheduled for 03/02 SPEECH THERAPY REPORT (2) Gastroparesis: Comment: 2019 GES - had been on reglan with good effect in the past, unsure why this was stopped.aeb Abnormal study. There is moderately severe abnormal retention of solid food in the stomach at 4 hours. REPORT SIGNED IN OTHER VENDOR SYSTEM 08/23/2019 Code(s): K31.84 - Gastroparesis (3) GERD (gastroesophageal reflux disease): Code(s): K21.9 - Gastro-esophageal reflux disease without esophagitis Qualifiers: Esophagitis presence: without esophagitis Qualified Code(s): K21.9 - Gastro-esophageal reflux disease without esophagitis (4) Chronic idiopathic constipation: Code(s): K59.04 - Chronic idiopathic constipation (5) RLQ abdominal pain: Code(s): R10.31 - Right lower quadrant pain Medications: Discontinued famotidine Discontinued Reason: Doctor's Order 40 mg PO BEDTIME 90 tabs 2RF K21.9 - Gastro-esophageal reflux disease without esophagitis Coding Level of Care Code Est Pt Level 3 (43424) Diagnoses Dysphagia R13.10 Gastroparesis K31.84 GERD (gastroesophageal reflux disease) K21.9 Esophagitis presence: without esophagitis Chronic idiopathic constipation K59.04 RLQ abdominal pain R10.31
[2023-02-01 12:17] VITALS: BP 117/58; PULSE 68; BMI 27.2
== END 2023-02-01 12:42 | disposition home or self-care (01) ==
PROVIDERS: PCP Internal Medicine; Visit Provider Nurse Practitioner
DX: R13.10 Dysphagia, unspecified (principal); K31.84 Gastroparesis; K21.9 Gastro-esophageal reflux disease without esophagitis; K59.04 Chronic idiopathic constipation; R10.31 Right lower quadrant pain
CPT/HCPCS: 99213

== ENCOUNTER → 2023-02-01 12:10 | Outpatient (BNVA) | payer OTHER, SELFPAY | PROVIDERS: PCP Internal Medicine; Visit Provider Nurse Practitioner | DX: R13.10 Dysphagia, unspecified (principal); R10.31 Right lower quadrant pain; K31.84 Gastroparesis; K21.9 Gastro-esophageal reflux disease without esophagitis; K59.04 Chronic idiopathic constipation | CPT/HCPCS: 99212 ==

== ENCOUNTER 2023-02-22 13:57 | Outpatient (REF) | payer OTHER, SELFPAY | END 2023-02-22 13:58 | disposition home or self-care (01) | LOC: HO.HAP 13:57 | PROVIDERS: Visit Provider Internal Medicine | DX: Z46.1 Encounter for fitting and adjustment of hearing aid (principal); H90.3 Sensorineural hearing loss, bilateral | CPT/HCPCS: V5266 ==

== ENCOUNTER 2023-02-26 18:37 | Emergency (ER) | payer OTHER, SELFPAY ==
--- NOTE | ~2023-02-26 | XR_ITS ---
EXAMINATION: XR CHEST CLINICAL INFORMATION: Chest pain. COMPARISON: Chest done on 09/13/2021. TECHNIQUE: 2 views of the chest were obtained. FINDINGS: No significant abnormality is noted involving the heart, lungs, mediastinum, bony thorax or soft tissues. XR/XR chest 2V IMPRESSION: Unremarkable examination.
--- NOTE | ~2023-02-26 | CT_ITS ---
EXAMINATION: CT HEAD WITHOUT CONTRAST CLINICAL INFORMATION: Left-sided headache. COMPARISON: CTA of the head done on 06/19/2018. TECHNIQUE: Contiguous axial imaging was performed from the skull base to vertex without intravenous administration of contrast. This CT examination was performed using dose optimization techniques as appropriate, variously including the following: *Automated exposure control *Adjustment of mA and/or kV according to patient size (this includes techniques or standardized protocols for targeted exams where dose is matched to indication/reason for exam; i.e. extremities or head) *Use of iterative reconstruction technique DLP: 571.0 mGy-cm FINDINGS: There is no evidence of acute intracranial hemorrhage or territorial infarction. No abnormal mass effect or midline shift is seen. Trivedi to white matter differentiation is well preserved. No extra-axial fluid collections are identified. No significant volume loss. No hydrocephalus. There is no abnormal attenuation within the brain parenchyma. The osseous structures and soft tissues are normal. The mastoid air cells and visualized portions of the paranasal sinuses are well aerated. CT/CT head/brain wo IV con IMPRESSION: No acute intracranial pathology. No significant change since 08/09/2018.
--- NOTE | 2023-02-26 18:41 | ECG_ITS ---
Test Reason : CHEST PAIN Blood Pressure : / mmHG Vent. Rate : 076 BPM Atrial Rate : 076 BPM P-R Int : 152 ms QRS Dur : 072 ms QT Int : 374 ms P-R-T Axes : 033 004 037 degrees QTc Int : 420 ms Normal sinus rhythm Normal ECG When compared with ECG of 31-MAR-2021 13:22, No significant change was found Referred By: Generic ED Physician Electronically Signed By:MINDA MORROW
[2023-02-26 20:12] VITALS: BP 118/60; PULSE 68; RESP 18; TEMP 36.2; O2SAT 98; BMI 26.8
--- NOTE | 2023-02-26 20:12 | ED_ITS ---
HPI - Chest Pain General Chief Complaint: Chest Pain Stated Complaint: chest pain left upper arm pain Time Seen by Provider: 02/26/23 22:55 Source: patient and family (Patient's 2 daughters ) Mode of arrival: ambulatory Limitations: language barrier (Albanian speaking only, contribution solicitor used) History of Present Illness HPI narrative: 62-year-old female who presents emergency department for evaluation of chest pain, headache and nausea the patient did sided chest pain on , the pain came on gradually and initially was intermittent and this morning. The patient describes the pain as a constant, chest pressure which radiates down her left arm and to her back. The pain is associated with nausea but no vomiting. Patient is also complaining of a left-sided headache. She states that she has had similar headaches in the past. She states she has had the headache for 2 days. She describes the headache as a squeezing sensation which is 5/10 at its worst, she denied any numbness or weakness The patient denied fever, chills, rhinorrhea, sore throat, cough, shortness of breath, dyspnea on exertion, vomiting or diarrhea. She denied for C, dysuria, myalgias or arthralgias. Related Data Home Medications Medication Instructions Recorded Confirmed acetaminophen 500 mg tablet 1,000 mg PO BID PRN Pain (Scale 01/08/21 09/22/22 Score 1-3) ascorbic acid (vitamin C) 1,000 mg 1 g PO BID 01/18/23 capsule coenzyme Q10 200 mg/gram oral mg PO 01/18/23 powder (H2Q CoQ10) fluocinonide 0.05 % topical topical BID PRN 01/18/23 ointment magnesium oxide 800 mg PO DAILY 01/18/23 tacrolimus 0.1 % topical ointment topical 01/18/23 vitamin B complex 1 tab PO DAILY 01/18/23 Previous Rx's Medication Instructions Recorded cpap #1 ea 06/03/20 cranberry extract 500 mg capsule 500 mg PO DAILY #90 caps 03/09/21 calcium carbonate 500 mg calcium 500 mg PO BID 30 days #60 tabs 07/05/22 (1,250 mg) tablet loratadine 10 mg tablet 10 mg PO DAILY 90 days #90 tabs 10/30/22 cholecalciferol (vitamin D3) 25 25 mcg PO DAILY #30 tabs 12/20/22 mcg (1,000 unit) tablet (Vitamin D3) esomeprazole magnesium 40 mg 40 mg PO DAILY #90 caps 12/20/22 capsule,delayed release ferrous sulfate 325 mg (65 mg 325 mg PO DAILY #30 tabs 12/20/22 iron) tablet docusate sodium 100 mg capsule 100 mg PO TID #90 caps 01/18/23 linaclotide 145 mcg capsule 145 mcg PO DAILY #30 caps 01/18/23 (Linzess) aspirin 81 mg tablet,delayed 81 mg PO DAILY #90 tabs 01/20/23 release ondansetron 4 mg disintegrating 4 mg PO Q6-8H PRN nausea and 02/26/23 tablet vomiting #14 tabs Allergies Allergy/AdvReac Type Severity Reaction Status Date / Time amoxicillin Allergy Intermediate Rash Verified 02/01/23 12:16 griseofulvin Allergy Intermediate Rash Verified 02/01/23 12:16 [From Candie-PEG (ultramicrosize)] octopus Allergy Intermediate Hives Verified 02/01/23 12:16 pregabalin [From Lyrica] Allergy Intermediate LEethargy, Verified 02/01/23 12:16 dizziness celecoxib [From Celebrex] AdvReac Intermediate Problems Verified 02/01/23 12:16 with Liver dicyclomine AdvReac Mild stomach Verified 02/01/23 12:16 upset oxycodone [From Percocet] AdvReac Mild Lethargy Verified 02/01/23 12:16 morphine AdvReac Unknown Verified 02/01/23 12:16 MANDARIN ORANGES Allergy Severe Lip Uncoded 02/01/23 12:16 Swelling, Hives PARMELEX Allergy Intermediate Problems Uncoded 02/01/23 12:16 with Liver Review of Systems 2 Review of Systems: Yes all other systems are reviewed and are negative [facility] Past Medical History [facility] Narrative: Social history: She denies tobacco, alcohol and drug use. Medical History Abdominal pain Postmenopausal Muscle cramps Physical exam Fibromyalgia Gastroparesis Midline thoracic back pain Epigastric pain Allergic rhinitis Ingrown toenail of right foot Small bowel obstruction Dyspnea on exertion Elevated AST (SGOT) Nausea RUQ pain H. pylori infection Obesity (BMI 30-39.9) Neuropathy Hearing loss Tendonitis Hyperlipidemia Carpal tunnel syndrome Arthritis Fibromyalgia GRAYSON (obstructive sleep apnea) Iron deficiency anemia Normocytic anemia Surgical History History of esophagogastroduodenoscopy (EGD) Hx of colonoscopy History of endoscopy History of laparoscopic cholecystectomy History of varicose vein stripping Family history of lipoma History of left breast biopsy History of History of temporal artery biopsy History of carpal tunnel repair Family History Family History Father Heart disease Diabetes Hypertension Mother Diabetes Hypertension Arthritis Fibromyalgia Osteoporosis Sister Breast cancer Social History Social History Household Members: Family Housing: Apartment Alcohol intake: never Patient Tobacco Use Status: Never used Tobacco Smoked in Last 30 Days: No e-Cigarette/Vaping Use: Never Used Second Hand Smoke Exposure: No Use of substances other than those prescribed or required for medical reasons: No Advance Directives: No Advance Directives Information Provided: No service: No 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al status: disabled Cognitive needs: No Hearing needs: Yes Vision needs: No Physical Exam 2 Vital Signs: Vital Signs: Last Vital Signs Temp 97.9 F 02/26/23 22:10 Pulse 66 02/26/23 22:10 Resp 15 02/26/23 22:10 BP 122/61 02/26/23 22:10 Pulse Ox 97 02/26/23 22:10 O2 Del Method Room Air 02/26/23 22:10 BMI result Body Mass Index 26.8 Vital signs were no Exam: General: Awake, alert in no distress Head: Normocephalic, atraumatic. Patient has no tenderness palpation over her temporal arteries. EENT: PERRL, Lids normal, sclera normal, conjunctiva normal, nose normal , ears normal, throat without erythema or exudates Neck: Supple, no adenopathy, trachea midline and nontender Lung: breath sounds symmetric, no wheezing, rales or rhonchi Chest: symmetric movement, patient has tenderness palpation over left costochondral joints anteriorly and has tenderness palpation over left posterior chest Heart: regular rate and rhythm, normal S1, S2 no murmurs or rubs Abdomen: soft, non-tender, nondistended, normal bowel sounds Back: no vertebral tenderness, no CVAT Extremities: no deformities, moves all extremities symmetrically Skin: no rashes, no lesion, normal color and warmth Neuro: Awake, alert, oriented, normal speech, cranial nerves intact, moves all extremities symmetrically Psych: Pleasant, cooperative Course Course Course Narrative: This is an RME: Additional HPI, ROS, PE not included below will be deferred to primary provider. This is a [id number], with a hx of GRAYSON, fibromyalgia, hyperlipidemia, presenting to the ER with complaints of left sided chest pain x 2 days. Daughter reports that chest discomfort was intermittent, and reports that today has been constant. Describing it as a pressure like pain. Reports chest pain radiates into her left side of her chest. Now reporting heart burn. No anticoagulants. Hx of ?TIAs. Patient also reporting left-sided headache, decreased strength in the left upper extremity. Plan: Labs, EKG, Chest xray Medical Decision Making Medical Decision Making MDM Narrative: 62-year-old female who presents emergency department for evaluation of intermittent left-sided chest pain which started on (2 days prior to evaluation) which became constant this morning stir left chest and left posterior back . The patient also complained of left-sided intermittent headache, she has had similar headaches in the past, this was associated with vomiting. Patient's vital signs were normal. Exam did reveal left-sided costochondral tenderness anteriorly and left-sided posterior chest wall tenderness. Following evaluation was ordered: CBC, CMP, lipase, troponin, EKG, chest x-ray, CT scan of the brain without IV contrast. 2330 The patient's laboratory evaluation was unremarkable including a high sensitive troponin I which was below detectable limits which is very reassuring given the fact that she has had chest pain for 3 days and has been constant for the past 12 hours. Patient's EKG was unremarkable pain Chest x-ray was unremarkable pain CT scan of the brain was normal Patient's presentation is consistent with costochondritis and a nonspecific headache. Patient was treated with Tylenol and ibuprofen in the emergency department she was also given Zofran 4 mg ODT for nausea She was advised to take Tylenol and ibuprofen for pain, she was prescribe Zofran ODT 4 mg every 6 hours as needed for nausea and vomiting. She was given printed and verbal instructions and discharged home Differential Diagnosis Differential Diagnoses: The differential diagnosis associated with the presentation includes Differential diagnosis includes was not limited to costochondritis, chest wall pain, anxiety, myocardial infarction, myocardial ischemia, stroke, intracranial bleed, cerebral mass, migraine headache, nonspecific headache, viral syndrome, electrolyte abnormalities, Admission/Observation Consideration of admission/observation: Escalation of care including admission/observation considered Lab Data MDM Lab Attestation statement: I reviewed the patient's lab results. My independent interpretation patient's laboratory evaluation as follows: CBC revealed mild anemia with an H&H of 11 5, CMP was normal. High sensitive troponin I was below detectable limits. 02/26/23 20:39 02/26/23 20:39 Labs: Lab Results 02/26/23 Range/Units 20:39 WBC 7.6 (4.8-10.8) X10*3/uL RBC 3.84 L (4.20-5.50) X10*6/uL Hgb 11.8 L (12.0-16.0) g/dl Hct 35.4 L (37.0-47.0) % MCV 92.2 (80.0-98.0) fL MCH 30.7 (27.0-33.0) pg MCHC 33.3 (31.0-35.0) g/dl RDW 13.2 (11.0-16.0) % Plt Count 254 (160-400) X10*3/uL MPV 8.8 L (9.4-12.3) fL Immature Gran % (Auto) 1.5 H (0.0-0.4) % Neut % (Auto) 54.0 (45-73) % Lymph % (Auto) 34.3 (20-40) % Aiken % (Auto) 7.5 (2-11) % Eos % (Auto) 2.0 (0-4) % Baso % (Auto) 0.7 (0-2) % Lymph # (Auto) 2.6 (1.2-4.9) X10*3/uL Aiken # (Auto) 0.6 (0.1-1.2) X10*3/uL Eos # (Auto) 0.2 (0.0-0.4) X10*3/uL Baso # (Auto) 0.1 (0.0-0.2) X10*3/uL Abs Immat Gran (auto) 0.11 H (0.00-0.03) X10*3/uL Absolute Neuts (auto) 4.1 (2.0-8.3) x10*3/uL Absolute Nucleated RBC 0.000 (0.0-0.012) X10*3/uL Nucleated RBC % (auto) 0.0 (0.0-0.2) /100WBC Sodium 141 (135-145) mmol/L Potassium 4.0 (3.3-5.1) mmol/L Chloride 106 (96-108) mmol/L Carbon Dioxide 28 (22-29) mmol/L Anion Gap 11 L (12-20) BUN 17 H (9-16) mg/dL Creatinine 0.67 (0.5-1.4) mg/dL Estim Creat Clear Calc 73.9 Estimated GFR > 60 Random Glucose 125 H (60-115) mg/dL Calcium 9.2 (8.4-10.2) mg/dL Total Bilirubin 0.2 (0.0-1.0) mg/dL Direct Bilirubin < 0.2 (0.0-0.5) mg/dL AST 23 (5-31) U/L ALT 17 (0-31) U/L Alkaline Phosphatase 84 (39-117) U/L Troponin I High Sens < 2.7 (<3.5-17.0) ng/L Total Protein 6.9 (6.5-8.0) g/dL Albumin 4.1 (3.5-5.0) g/dL Independent Interpretation I performed an independent interpretation of an: EKG Interpretation: My independent interpretation of the patient's 18:47 hours is as follows: Normal sinus rhythm rate of 76, normal FL interval, QRS duration QTC interval, no ST segment elevation, no ST segment depression, no PACs, no PVCs, no T-wave abnormalities-this is a normal EKG. Radiology Impression Discussion of test interpretation with radiology: I have reviewed the radiologist's reading. Radiologist Impression: CT head/brain wo IV con IMPRESSION: No acute intracranial pathology. No significant change since 08/09/2018. Dictated By: Earl Barrett MD XR chest 2V IMPRESSION: Unremarkable examination. Dictated By: Earl Barrett MD Independent Historian Clinical information obtained from an independent historian. History obtained from or confirmed by: Other (Patient's 2 daughters ) Prescription Management I considered prescription management with: Other (Antiemetic) Chronic Conditions Patient?s care impacted by: Other (Gastroparesis, of soft sleep apnea, obesity) Discharge Plan Discharge Clinical Impression: Headache, Costochondral pain, Nausea Patient Disposition: Home, Self-Care Instructions: Costochondritis (ED), Acute Headache (ED) Additional Instructions: The CT scan of your head was normal. Your chest x-ray was normal pain Your EKG was normal pain Your blood work was unremarkable which is reassuring. You did have tenderness when I pushed on the left side of your chest, this is consistent with inflammation of the muscles and joints of the chest causing your pain (costochondritis) Take ibuprofen 200 mg pills, 2 pills every 6 hours as needed for pain or fever. Take Tylenol (acetaminophen) 500 mg pills, 2 pills every 6 hours as needed for pain or fever. Insert Zofran instruction Follow-up with your doctor in 2 days. Please return to the emergency department if your symptoms get worse or if you develop any symptoms that are concerning to you. Prescriptions: New ondansetron 4 mg tablet,disintegrating 4 mg PO Q6-8H PRN (Reason: nausea and vomiting) Qty: 14 0RF No Action (DME) cpap 5-20 cm H2O autoPAP See Rx Instructions .Route .MEDSUPPLY Qty: 1 0RF Rx Instructions: As directed cranberry extract 500 mg capsule 500 mg PO DAILY Qty: 90 3RF calcium carbonate 500 mg calcium (1,250 mg) tablet 500 mg PO BID 30 Days Qty: 60 11RF loratadine 10 mg tablet 10 mg PO DAILY 90 Days Qty: 90 3RF esomeprazole magnesium 40 mg capsule,delayed release(DR/EC) 40 mg PO DAILY Qty: 90 3RF cholecalciferol (vitamin D3) [Vitamin D3] 25 mcg (1,000 unit) tablet 25 mcg PO DAILY Qty: 30 11RF ferrous sulfate 325 mg (65 mg iron) Tablet 325 mg PO DAILY Qty: 30 6RF aspirin 81 mg tablet,delayed release (DR/EC) 81 mg PO DAILY Qty: 90 3RF acetaminophen 500 mg tablet 1,000 mg PO BID PRN (Reason: Pain (Scale Score 1-3)) tacrolimus 0.1 % ointment topical fluocinonide 0.05 % ointment topical BID PRN ascorbic acid (vitamin C) 1,000 mg capsule 1 g PO BID magnesium oxide 400 mg magnesium tablet 800 mg PO DAILY vitamin B complex Tablet 1 tab PO DAILY H2Q CoQ10 200 mg/gram powder PO docusate sodium 100 mg capsule 100 mg PO TID Qty: 90 6RF Linzess 145 mcg capsule 145 mcg PO DAILY Qty: 30 6RF
--- NOTE | 2023-02-26 20:38 | PC.NURSE ---
Patient sitting in WR prior to this RN's arrival on shift. This RN triaged patient and patient brought back to CT immediately after c/o weakness on left side as well as headache, chest pain 02/20. This RN informed gas charger who was able to bring back patient immediately for intervention.
[2023-02-26 20:45] LABS: MANUAL DIFF FLAG NO
[2023-02-26 20:48] LABS: Basophils Absolute Auto 0.1 X10*3/uL (0.0-0.2); Basophils Percent Auto 0.7 % (0-2); Eosinophils Absolute Auto 0.2 X10*3/uL (0.0-0.4); Hematocrit 35.4 % (37.0-47.0); Hemoglobin 11.8 g/dl (12.0-16.0); Imm Gran Abs Auto 0.11 X10*3/uL (0.00-0.03); Imm Gran Pct Auto 1.5 % (0.0-0.4); Lymphocytes Absolute Auto 2.6 X10*3/uL (1.2-4.9); Lymphocytes Percent Auto 34.3 % (20-40); Mean Corpuscular HGB Conc 33.3 g/dl (31.0-35.0); Mean Corpuscular Hemoglobin 30.7 pg (27.0-33.0); Mean Corpuscular Volume 92.2 fL (80.0-98.0); Mean Platelet Volume 8.8 fL (9.4-12.3); Monocytes Absolute Auto 0.6 X10*3/uL (0.1-1.2); Monocytes Percent Auto 7.5 % (2-11); Neutrophils Absolute Auto 4.1 x10*3/uL (2.0-8.3); Platelet Count 254 X10*3/uL (160-400); Red Blood Count 3.84 X10*6/uL (4.20-5.50); Red Cell Distribution Width 13.2 % (11.0-16.0); White Blood Count 7.6 X10*3/uL (4.8-10.8)
[2023-02-26 21:04] LABS: Alanine Aminotransferase 17 U/L (0-31); Albumin Level 4.1 g/dL (3.5-5.0); Alkaline Phosphatase 84 U/L (39-117); Anion Gap 11 (12-20); Aspartate Amino Transferase 23 U/L (5-31); Bilirubin Direct < 0.2 mg/dL (0.0-0.5); Bilirubin Total 0.2 mg/dL (0.0-1.0); Blood Urea Nitrogen 17 mg/dL (9-16); Calcium 9.2 mg/dL (8.4-10.2); Carbon Dioxide 28 mmol/L (22-29); Chloride 106 mmol/L (96-108); Creatinine Clr Calc Pharmacy 73.9; Estimated Glomerular Filt Rate > 60; Glucose Random 125 mg/dL (60-115); Sodium 141 mmol/L (135-145); Total Protein 6.9 g/dL (6.5-8.0)
[2023-02-26 21:11] LABS: Troponin-I High Sensitivity < 2.7 ng/L (<3.5-17.0)
[2023-02-26 22:10] VITALS: BP 122/61; PULSE 66; RESP 15; TEMP 36.6; O2SAT 97
[2023-02-26] MEDS: Acetaminophen 325 MG TABLET 975 MG PO (23:25)
[2023-02-26] MEDS: Ibuprofen 400 MG TABLET PO (23:25)
[2023-02-26] MEDS: Ondansetron ODT 4 MG TAB.RAPDIS TRANSLINGU (23:26)
== END 2023-02-26 23:39 | disposition home or self-care (01) ==
PROVIDERS: Physician Assistant Medical; Emergency Provider Emergency Medicine Emergency Medical Services; PCP Internal Medicine
DX: M94.0 Chondrocostal junction syndrome [Tietze] (principal); R51.9 Headache, unspecified; R07.9 Chest pain, unspecified; E78.5 Hyperlipidemia, unspecified; Z79.899 Other long term (current) drug therapy
CPT/HCPCS: 36415; 70450; 71046; 80048; 80076; 84484; 85025; 93005; 99284

== ENCOUNTER 2023-03-02 14:38 | Outpatient (REF) | payer OTHER, SELFPAY ==
--- NOTE | ~2023-03-02 | FL_ITS ---
PROCEDURE: XR BARIUM SWALLOW CLINICAL INFORMATION: Dysphagia. COMPARISON: 07/05/2022 TECHNIQUE: Modified barium swallow with speech pathologist. FINDINGS: Patient swallowed numerous consistencies from thin liquid to barium-coated cracker. No laryngeal penetration or tracheal aspiration was identified. FLUOROSCOPY TIME: 1 minute 51 seconds DOSE AREA PRODUCT: 734.7 uGy-m2 (microgray-meter squared) FL/FL barium swallow modified IMPRESSION: No evidence of laryngeal penetration or aspiration. Please refer to speech pathology notes for details.
--- NOTE | 2023-03-03 10:52 | MHC.SL.IMP ---
Date of Plan of Treatment: 03/02/23 Onset of Symptoms/Illness: 12/18/22 Date Treatment Started: 03/02/23 Admitting Diagnosis: Dysphagia Primary Speech & Language Diagnosis: R13.12 Oropharyngeal Phase Dysphagia Reason for Today's Visit: 84945 Modified Barium Swallow Study Pre-evaluation Dietary Consistencies: Regular Pre-evaluation Liquid Consistency: Thin Pre-evaluation Medication Administration: Whole with Liquid Medical History: Modified Barium Swallow Study Fluoroscopic Evaluation of Swallowing Function CPT Code 32362 Evaluation Year: 2022 Reason for Study: Pt reporting difficulty swallowing. Referring Physician: Shraddha Melvin ANPKourtneyC Evaluating Clinician: Norma Snyder MA, CCC-SPECIAL INVESTIGATOR Study Number: 1 Patient Name: Raquel Duque Status: Outpatient, Ambulatory Age: 62 Gender: Female Medical History Medical History Abdominal pain Postmenopausal Muscle cramps Physical exam Fibromyalgia Gastroparesis Midline thoracic back pain Epigastric pain Allergic rhinitis Ingrown toenail of right foot Small bowel obstruction Dyspnea on exertion Elevated AST (SGOT) Nausea RUQ pain H. pylori infection Obesity (BMI 30-39.9) Neuropathy Hearing loss Tendonitis Hyperlipidemia Carpal tunnel syndrome Arthritis Fibromyalgia GRAYSON (obstructive sleep apnea) Iron deficiency anemia Normocytic anemia Surgical History History of esophagogastroduodenoscopy (EGD) Hx of colonoscopy History of endoscopy History of laparoscopic cholecystectomy History of varicose vein stripping Family history of lipoma History of left breast biopsy History of History of temporal artery biopsy History of carpal tunnel repair Current (pre-evaluation) Intake/Diet: Route: PO Diet Grade: Regular Liquid Consistencies: Thin Pre-Study Functional Oral Intake Scale (FOIS): 7- Total oral intake with no restrictions Pain: None reported at time of study SUBJECTIVE: Pt is a 62 year old female with history of gastroparesis, neuropathy, fibromyalgia, GRAYSON, among other diagnoses. Pt is followed by [facility], seen on 01/18/23 when she reported sudden onset dysphagia 1 month prior. Pt reported choking on both solids and liquids and feeling food stuck above the sternal notch. Today pt endorses that her difficulties ?don?t happen all the time? and seem to happen sporadically. Pt denies odynophagia. Per chart review, pt?s PCP ordered a regular barium swallow which came out to be ?normal.? On 01/21 pt had a flexible transoral upper gastrointestinal endoscopy. Findings revealed ?normal larynx,? and in the esophagus, ?irregular Z line with ? 1 cms tongue of possible Wilson?s-biopsied.? No esophagitis, no stricture, and no ring. Pt had dilation done, reported to G.I. on 02/01 improved swallow by 50% post dilation. Pt was referred for MBSS to rule in/out any neurologic/ coordination problems causing dysphagia. Food and Liquid Trials: Oral Impairment: Lip Closure: Did not test Oral Impairment: Tongue Control During Bolus Hold: Did not test Oral Impairment: Bolus Preparation/Mastication: 1=Slow prolonged chewing/mashing with complete re-collection Oral Impairment: Bolus Transport/Lingual Motion: 1= Delayed initiation of tongue motion Oral Impairment: Oral Residue: 2=Residue collection on oral structures Oral Impairment:Initiation of Pharyngeal Swallow: 3=Bolus head in pyriforms Pharyngeal Impairment: Soft Palate Elevation: 0=No bolus between soft palate (SP)/pharyngeal wall (PW) Pharyngeal Impairment: Laryngeal Elevation: 1=Partial thyroid cartilage/arytenoids to epiglottic petiole movement Pharyngeal Impairment: Anterior Hyoid Excursion: 1=Partial anterior movement Pharyngeal Impairment: Epiglottic Movement: 1=Partial inversion Pharyngeal Impairment: Laryngeal Vestibular Closure:: 0=Complete: no air/contrast in laryngeal vestibule Pharyngeal Impairment: Pharyngeal Stripping Wave: 0=Present: complete Pharyngeal Impairment: Pharyngeal Contraction: Did not test Pharyngeal Impairment: Pharyngoesophageal Segment Openin=Complete distension and complete duration: no obstruction of flow Pharyngeal Impairment: Tongue Base (TB) Retraction: 0=No contrast between tongue base and posterior pharyngeal wall Pharyngeal Impairment: Pharyngeal Residue: 2=Collection of residue within or on pharyngeal structures Pharyngeal Impairment: Esophageal Clearance Upright Position: Did not test Impressions and Recommendations Clinical Observations: OBJECTIVE: Time-out: performed at 15:30 Evaluation Start: 15:00; Stop: 15:05 Patient Positioning: Standing Viewing Planes: LATERAL ONLY Contrast: MBSImP? Standardized Protocol using commercially prepared, standardized Barium viscosities, including: Varibar? THIN LIQUID (40% w/v, <15 cps) , 1/2 Shortbread Cookie (1 x1 x.25 ) [facility] ID: [id number] [facility] Results: Lip closure for intraoral bolus containment could not be assessed due to logistical reasons not related to physiologic impairment. Tongue control during bolus hold could not be assessed due to logistical reasons not related to physiologic impairment. Bolus preparation and mastication resulted in slow, prolonged chewing/mashing but with complete re-collection. Bolus transport/lingual motion demonstrated delayed initiation of tongue motion. Oral residue was a collection on oral structures. Initiation of the pharyngeal swallow occurred when the bolus head was in the pyriform sinuses. Soft palate elevation resulted in no bolus between the soft palate and the pharyngeal wall. Laryngeal elevation was decreased, with partial superior movement of the thyroid cartilage/partial approximation of the arytenoids to the epiglottic petiole. Anterior hyoid excursion demonstrated partial anterior movement. Epiglottic movement resulted in partial inversion. Laryngeal vestibular closure was complete, as indicated by no air or contrast within the laryngeal vestibule at the height of the swallow. Pharyngeal stripping wave was present and complete. Pharyngeal contraction could not be determined due to logistical reasons not related to physiologic impairment. Pharyngoesophageal segment opening was completely distended for complete duration with no obstruction of bolus flow. Tongue base retraction allowed no contrast between the retracted tongue base and the posterior pharyngeal wall. Pharyngeal residue was a collection of residue within or on pharyngeal structures. Esophageal clearance in the upright position could not be assessed due to logistical reasons not related to physiologic impairment. Oral Impairment Score: 7 (absence of score, component 1component 2) Pharyngeal Impairment Score: 5 (absence of score, component 13) Esophageal Impairment Score: --- (absence of score, component 17) Laryngeal Penetration and Aspiration: Neither penetration nor aspiration was observed in today's study with Kevin Evans. ASSESSMENT: Clinician Assessment: This exam was conducted by a multidisciplinary team, which included a speech pathologist, radiologist, and glass technician. Pt was standing for lateral view only. Pt was able to feed herself without difficulty. Pt trialed the following liquid and solid consistencies: thin liquid barium (5 mL, individual cup sip, sequential cup sips), pureed solid (applesauce mixed with barium paste), ground solid (chicken salad mixed with barium paste), regular solid (Moon [place] cookie coated with barium paste), whole barium pill tablet with sips of water. Mastication was mildly slowed and prolonged. There was mild residue coating the tongue, with pt swallowing twice to clear the oral cavity. Lingual motion for bolus transport was mildly delayed, but brisk. Pharyngeal swallow trigger was also delayed, initiated as the bolus head reached the pyriforms. There was no nasopharyngeal reflux. Partial laryngeal elevation, with partial anterior hyoid excursion and incomplete epiglottic inversion. Laryngeal vestibular closure was complete. No evidence of aspiration or penetration during this exam. There was mild residue on the tongue base, in the valleculae, and in the pyriform sinuses with intake of solids. Trace pharyngeal retention on trials of liquids. Pharyngeal residue cleared with multiple dry swallows (2) and sips of liquid. Pt swallowed barium pill with sips of water. Barium pill passed through oral cavity and pharynx with no hang up. No obstruction of flow through the pharyngoesophageal segment opening. Liquid Intake Recommendation: Thin Liquid Intake Strategies: Small Sips Dietary Recommendations: Regular Medication Administration: Whole with Liquid Please contact the pharmacy regarding appropriate crushable or liquid drug formulations that are available whenever modified delivery is recommended. Compensatory Strategies Recommended: Sitting Upright (90 deg), Double Swallow, Small Bites and Sips, Alternate Liquids/Solids, Rate of Ingestion Change Supervision during eating and or drinking: None Needed Recommendation for Speech Therapy: NA:Typical Evaluation Text Comment: Intake Recommendations: Route: PO Diet Grade: Regular Liquid Consistencies: Thin Post-Study Functional Oral Intake Scale (FOIS): 7- Total oral intake with no restrictions No evidence of aspiration or penetration during this exam. Mild oral and pharyngeal residue cleared with multiple dry swallows and sips of liquid. Recommend pt to cut up food as needed and moisten with sauces and gravies. Follow each bite of food with dry swallow and liquid wash to promote oral and pharyngeal clearance. SPECIAL INVESTIGATOR discussed strategies with pt after the exam. She verbalized understanding. Further ST intervention is no longer warranted as this exam revealed pt?s swallow ability to be WFL. Recommend pt to continue monitoring her dysphagia. If there are any changes or further concern, SPECIAL INVESTIGATOR can be re-consulted, at which point a re-evaluation may be indicated. Pt may also benefit from continued work up with [facility] due to her history of gastroparesis. Suggested Referrals: The patient might benefit from a referral to: Gastroenterology Indication for Referral: Hx gastroparesis Therapy Recommendations: Therapy will be discontinued Prognosis for Improvement: The prognosis for the patient to meet nutritional needs by mouth is excellent based on degree of impairment. Clinician - Supplemental, Miscellaneous Communication: It is important to note MBSS objective studies are snapshots in time and Patient function might vary with factors such as time of day or concomitant medical conditions. For this reason, the final treatment plan for this patient should rest with their medical care team. Additional recommendations should be considered with the totality of the Patient in mind. Thank for the opportunity to participate in the care of this patient. If you have any questions about the content of this report, please contact the [facility] at [facility]. Education: Education regarding findings from today's study and plans for therapy were provided to Patient only through Verbal Instruction. Understanding was expressed by the Patient only. Assembly Inspector Helper Clinician/Clinical Fellow: No Supervisory Statement: N/A Speech Language Pathologist: Norma Snyder M.A., CCC-SPECIAL INVESTIGATOR
== END 2023-03-02 14:39 | disposition home or self-care (01) ==
LOC: HO.XRAY 14:38
PROVIDERS: PCP Internal Medicine; Visit Provider Nurse Practitioner
DX: R13.10 Dysphagia, unspecified (principal); R10.31 Right lower quadrant pain
CPT/HCPCS: 74230; 92611

== ENCOUNTER → 2023-03-02 14:39 | Outpatient (BNV) | payer OTHER, SELFPAY | PROVIDERS: PCP Internal Medicine; Visit Provider Radiology Diagnostic Radiology | DX: R13.10 Dysphagia, unspecified (principal) | CPT/HCPCS: 74230 ==

== ENCOUNTER 2023-03-09 11:25 | Outpatient (REF) | payer OTHER, SELFPAY | END 2023-03-09 11:26 | disposition home or self-care (01) | LOC: HO.HAP 11:25 | PROVIDERS: Visit Provider Internal Medicine | DX: Z46.1 Encounter for fitting and adjustment of hearing aid (principal); H90.3 Sensorineural hearing loss, bilateral | CPT/HCPCS: V5264 ==

== ENCOUNTER 2023-03-09 14:43 | Outpatient (AMB) | payer OTHER, SELFPAY ==
--- NOTE | 2023-03-09 14:53 | A.OFFVIS_ITS ---
Intake Vital Signs 03/09/23 15:16 Height 5 ft 1 in Weight 141 lb 15.643 oz BMI 26.8 BP 104/57 L Blood Pressure Location Lt brachial Position Sitting Pulse 67 Intake Visit Reasons: barium swallow modified follow up Intake Note: Patient presents to in office visit follow up of barium swallow. CC: Patient c/o epigastric pain. Reports doing better from constipation. She was seen in the ER on 02/26 with c/o chest pain, nausea, and left sided headache for 2 days. Denies other GI concerns today. Time Lock Expert Required: No Accompanied by: Daughter Allergies amoxicillin Allergy (Intermediate, Verified 03/09/23 15:20) Rash griseofulvin [From Candie-PEG (ultramicrosize)] Allergy (Intermediate, Verified 03/09/23 15:20) Rash octopus Allergy (Intermediate, Verified 03/09/23 15:20) Hives pregabalin [From Lyrica] Allergy (Intermediate, Verified 03/09/23 15:20) LEethargy, dizziness celecoxib [From Celebrex] Adverse Reaction (Intermediate, Verified 03/09/23 15:20) Problems with Liver dicyclomine Adverse Reaction (Mild, Verified 03/09/23 15:20) stomach upset oxycodone [From Percocet] Adverse Reaction (Mild, Verified 03/09/23 15:20) Lethargy morphine Adverse Reaction (Verified 03/09/23 15:20) Unknown MANDARIN ORANGES Allergy (Severe, Uncoded 02/01/23 12:16) Lip Swelling, Hives PARMELEX Allergy (Intermediate, Uncoded 02/01/23 12:16) Problems with Liver HPI barium swallow modified follow up HPI Details Assessment & Plan (1) Dysphagia: Comment: solids and liquids Code(s): R13.10 - Dysphagia, unspecified Plan: Sammarinese #dtr translates per pt request She tolerated the procedure well. She says her swallowing only responded to the dilation by 50%. We will need to decide if she needs serial dilations since the manifestation of her dysphagia is in the upper area. She has the mod barium swallow coming up to see if there is any neurologic/coordination problems c/t the swallowing. She is trying to use magnesium for her CIC instead of daily LInzess and colace and she is using it prn. She still has lingering RLQ pain that may be bowel spasm, so we discuss tincture of peppermint ior IB Guard. She is only taking esomeprazole and not the famotidine, so we will d/c it. ROV Mod barium swallow. IB guard samples given Modified barium swallow It is scheduled for 03/02 SPEECH THERAPY REPORT (2) Gastroparesis: Comment: 2019 GES - had been on reglan with good effect in the past, unsure why this was stopped.aeb Abnormal study. There is moderately severe abnormal retention of solid food in the stomach at 4 hours. REPORT SIGNED IN OTHER VENDOR SYSTEM 08/23/2019 Code(s): K31.84 - Gastroparesis (3) GERD (gastroesophageal reflux diseas e): Code(s): K21.9 - Gastro-esophageal reflux disease without esophagitis Qualifiers: Esophagitis presence: without esophagitis Qualified Code(s): K21.9 - Gastro-esophageal reflux disease without esophagitis (4) Chronic idiopathic constipation: Code(s): K59.04 - Chronic idiopathic constipation (5) RLQ abdominal pain: Code(s): R10.31 - Right lower quadrant pain Medications: Discontinued famotidine Disc ontinued Reason: Doctor's Order 40 mg PO BEDTIME 90 tabs 2RF K21.9 - Gastro-eso phageal reflux dis ease without esoph agitis (2) RLQ abdominal pain: ?Code(s): R10.31 - Right lower quadrant pain (3) Dysphagia: ?Comment: solids and liquids ?Code(s): R13.10 - Dysphagia, unspecified (4) Gastroparesis: ?Comment: 2019 GES - had been on reglan with good effect in the past, unsure why this was stopped.aeb Abnormal study. There is moderately severe abnormal retention of solid food in the stomach at 4 hours. REPORT SIGNED IN OTHER VENDOR SYSTEM 08/23/2019 ?Code(s): K31.84 - Gastroparesis (5) GERD (gastroesophageal reflux diseas e): ?Code(s): K21.9 - Gastro-esophageal reflux disease without esophagitis ?Qualifiers: ?Esophagitis presence:?without esophagitis? Qualified Code(s):?K21.9 - Gastro-esophageal reflux disease without esophagitis (6) Chronic idiopathic constipation: ?Code(s): K59.04 - Chronic idiopathic constipation ? ? ? Orders: Orders [place] barium swallow modified Today R10.31 - Right low er quadrant pain, R13.10 - Dysphagia , unspecified ? Medications: Refilled docusate sodium 100 mg? PO TID 90 caps 6RF K59.04 - Chronic i diopathic constipa tion ? linaclotide (Linze ss) 145 mcg? PO DAILY 30 caps 6RF ? ? EGD 01/24/23 Findings: Larynx:? Normal Esophagus: GE junction at 35 cms. No esophagitis. Irregular Z line with ? 1 cms tongue of possible Wilson's - biopsied. No stricture or ring noted in the esophagus. Esophagus was dilated with a 20 mm (60F) CRE balloon x 60 sec Stomach: Mild gastric erythema. Biopsies were obtained. Grade 2 flap valve on retroflexed examination of the cardia. Duodenum: Normal bulb and descending duodenum Intervention: Biopsies and empiric esophageal balloon dilation as noted above Impression and Post Procedure Diagnosis: Endoscopy Findings: ESOPHAGUS: Irregular Z line with ? 1 cms tongue of possible Wilson's - biopsied. No stricture or ring noted in the esophagus. Esophagus was dilated with a 20 mm (60F) CRE balloon x 60 sec STOMACH: Mild antral gastritis Received: 01/24/23 Diagnosis A.? Stomach, antrum, biopsy:? Antral-type and oxyntic mucosa with mild chronic inactive inflammation; no Helicobacter organisms seen. B.? Esophagus, distal, biopsy: - Cardiofundic-type mucosa with mild chronic inactive inflammation; no intestinal metaplasia seen. - Squamous mucosa within normal limits. Modified barium swallow 03/02/23 IMPRESSION: No evidence of laryngeal penetration or aspiration. Please refer to speech pathology notes for details. SPEECH THERAPY REPORT Clinician Assessment: This exam was conducted by a multidisciplinary team, which included a speech pathologist, radiologist, and racking technician. Pt was standing for lateral view only. Pt was able to feed herself without difficulty. Pt trialed the f ollowing liquid and solid consistencies: thin liquid barium (5 mL, individual cup sip, sequential cup sips), pureed solid (applesauce mixed with barium paste), ground solid (chicken salad mixed with barium paste), regular solid (Moon Doone cookie coated with barium paste), whole barium pill tablet with sips of water. Mastication was mildly slowed and prolonged. There was mild residue coating the tongue, with pt swallowing twice to clear the oral cavity. Lingual motion for bolus transport was mildly delayed, but brisk. Pharyngeal swallow trigger was also delayed, initiated as the bolus head reached the pyriforms. There was no nasopharyngeal reflux. Partial laryngeal elevation, with partial anterior hyoid excursion and incomplete epiglottic inversion. Laryngeal vestibular closure was complete. No evidence of aspiration or penetration during this exam. There was mild residue on the tongue base, in the valleculae, and in the pyriform sinuses with intake of solids. Trace pharyngeal retention on trials of liquids. Pharyngeal residue cleared with multiple dry swallows (2) and sips of liquid. Pt swallowed barium pill with sips of water. Barium pill passed through oral cavity and pharynx with no hang up. No obstruction of flow through the pharyngoesophageal segment opening. Liquid Intake Recommendation: Thin Liquid Intake Strategies: Small Sips Dietary Recommendations: Regular Medication Administration: Whole with Liquid Please contact the pharmacy regarding appropriate crushable or liquid drug formulations that are available whenever modified delivery is recommended. Compensatory Strategies Recommended: Sitting Upright (90 deg), Double Swallow, Small Bites and Sips, Alternate Liquids/Solids, Rate of Ingestion Change Supervision during eating and or drinking: None Needed Recommendation for Speech Therapy: NA:Typical Evaluation Text Comment: Intake Recommendations: Route: PO Diet Grade: Regular Liquid Consistencies: Thin Post-Study Functional Oral Intake Scale (FOIS): 7- Total oral intake with no restrictions No evidence of aspiration or penetration during this exam. Mild oral and pharyngeal residue cleared with multiple dry swallows and sips of liquid. Re commend pt to cut up food as needed and moisten with sauces and gravies. Follow each bite of food with dry swallow and liquid wash to promote oral and pharyngeal clearance. DISTRICT PLANT SUPERINTENDENT discussed strategies with pt after the exam. She verbalized understanding. Further ST intervention is no longer warranted as this exam revealed pt?s swallow ability to be WFL. Recommend pt to continue monitoring her dysphagia. If there are any changes or further concern, DISTRICT PLANT SUPERINTENDENT can be re-consulted, at which point a re-evaluation may be indicated. Pt may also benefit from continued work up with Nasra due to her history of gastroparesis. Suggested Referrals: The patient might benefit from a referral to: Gastroenterology Indication for Referral: Hx gastroparesis Therapy Recommendations: Therapy will be discontinued Prognosis for Improvement: The prognosis for the patient to meet nutritional needs by mouth is excellent based on degree of impairment. TODAY'S VISIT Sammarinese #Carolyn Womack She is here with her daughter who is supportive. We review the mod barium swallow and she is able to repeat verbalize the safe swallowing precautions that were taught to her and she says her swallowing has been good since the last time I saw her. She does have some disorganization with chewing but should do okay with the speech therapy recommendations. She feels she has been doing well in terms of eating w/o reglan, but she stopped it only to improve the pill burden, not because of any a/e. She does not have N/V, but is having early satiety and pain in the epigastrum and chest that is likely r/t the gastroparesis......so I think that she really needs the reglan. She also presented to the ER for chest pain and they ruled out stroke or cardiac causes. I point out to her daughter that likely if she would stay on her Reglan she would have saved herself an ER visit since all of the symptoms she is continuing to describe to me are all consistent with her profound gastroparesis discovered on the gastric emptying study. With this information she is willing to restart it. Return office visit in 4 weeks [facility] Medical History Abdominal pain Postmenopausal Muscle cramps Physical exam Fibromyalgia Gastroparesis Midline thoracic back pain Epigastric pain Allergic rhinitis Ingrown toenail of right foot Small bowel obstruction Dyspnea on exertion Elevated AST (SGOT) Nausea RUQ pain H. pylori infection Obesity (BMI 30-39.9) Neuropathy Hearing loss Tendonitis Hyperlipidemia Carpal tunnel syndrome Arthritis Fibromyalgia GRAYSON (obstructive sleep apnea) Iron deficiency anemia Normocytic anemia Surgical History History of esophagogastroduodenoscopy (EGD) Hx of colonoscopy History of endoscopy History of laparoscopic cholecystectomy History of varicose vein stripping Family history of lipoma History of left breast biopsy History of History of temporal artery biopsy History of carpal tunnel repair Family History Father Heart disease Diabetes Hypertension Mother Diabetes Hypertension Arthritis Fibromyalgia Osteoporosis Sister Breast cancer Social History Household Members: Family Caregiver staying overnight: No Housing: Apartment Alcohol intake: never Patient Tobacco Use Status: Never used Tobacco e-Cigarette/Vaping Use: Never Used Second Hand Smoke Exposure: No service: No 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al status: disabled Cognitive needs: No Hearing needs: Yes Vision needs: No Review of Systems Const Denies fatigue, Denies fever(s), Denies night sweats, Reports poor appetite and Denies weight loss ENT Reports Normal hearing present, Denies dental pain, Denies dysphagia, Denies hearing loss, Denies mouth pain, Denies odynophagia, Denies throat swelling, Denies tongue swelling and Reports other (Dentition adequate) Card Reports chest pain Resp Reports no additional complaints GI Denies abdominal pain, Denies melena, Denies bloating, Denies hematochezia, Reports constipation, Denies GI cramping, Denies dysphagia, Denies excessive flatus, Reports early satiety, Reports dyspepsia, Reports heartburn, Denies diarrhea, Reports nausea, Denies odynophagia, Denies vomiting and Denies hematemesis Skin/Breast Denies pruritus, Denies lesions, Denies rash and Denies jaundice Neuro Reports Normal hearing present and Denies Abnormal speech present Endo Denies fatigue Aller/Immun Denies throat swelling and Denies tongue swelling Physical Exam Vital Signs: Last Vital Signs Pulse 67 03/09/23 15:16 BP 104/57 L 03/09/23 15:16 BMI result Body Mass Index 26.8 Const General: cooperative, no acute distress, well developed and well groomed Nutritional Appearance: average body habitus and well nourished Orientation/consciousness: oriented to person, oriented to place and oriented to time Limitations: language barrier HEENT Head: Yes normocephalic and Yes atraumatic Eyes General: appearance normal, both eyes and all related structures Pupils: Equal, round and reactive pupils present Neck Neck: Yes normal visual inspection and Yes no lymphadenopathy Thyroid: Thyroid normal Resp Effort & Inspection: normal respiratory effort and able to speak in complete sentences Auscultation: clear to auscultation bilaterally Cardio Rate: regular rate Rhythm: regular rhythm Heart sounds: Normal, physiologic split S2 sound present Peripheral pulses: radial pulses present and posterior tibial pulses present GI Inspection: No distended and No Abdominal panniculus present Palpation (GI): Soft to palpation, nontender, no guarding, not rigid and No hepatosplenomegaly present Percussion: Yes normal to percussion Auscultation: normal bowel sounds Rectal Exam - Female: deferred Skin General skin exam: no rashes or lesions noted, turgor normal, skin not dry, no jaundice, No spider nevi and no striae Rashes: no rashes Nails: normal Neuro General: oriented to person, oriented to place and oriented to time Cranial nerves: Yes Equal, round and reactive pupils present and Yes Normal hearing present Speech: No Abnormal speech present Extrem General: Yes normal to inspection, No clubbing, No cyanosis and No edema Psych Appearance: grossly normal and well kempt Mental Status: mental status grossly normal Speech and movement: Normal speech and movement present Affect: normal affect Attitude: cooperative Thought process: Normal thought process present and not confabulating Thought content: Normal thought content present Insight: Limited insight present (Psych) Judgement: Limited judgement present (Psych) Assessment & Plan Assessment & Plan (1) Dysphagia: Comment: solids and liquids Code(s): R13.10 - Dysphagia, unspecified Plan: Sammarinese #Carolyn Womack She is here with her daughter who is supportive. We review the mod barium swallow and she is able to repeat verbalize the safe swallowing precautions that were taught to her and she says her swallowing has been good since the last time I saw her. She does have some disorganization with chewing but should do okay with the speech therapy recommendations. She feels she has been doing well in terms of eating w/o reglan, but she stopped it only to improve the pill burden, not because of any a/e. She does not have N/V, but is having early satiety and pain in the epigastrum and chest that is likely r/t the gastroparesis......so I think that she really needs the reglan. She also presented to the ER for chest pain and they ruled out stroke or cardiac causes. I point out to her daughter that likely if she would stay on her Reglan she would have saved herself an ER visit since all of the symptoms she is continuing to describe to me are all consistent with her profound gastroparesis discovered on the gastric emptying study. With this information she is willing to restart it. Return office visit in 4 weeks (2) Gastroparesis: Comment: 2019 GES - had been on reglan with good effect in the past, she stopped it on her own to try to simplify her pill burden which likely was not wu.aeb Abnormal study. There is moderately severe abnormal retention of solid food in the stomach at 4 hours. REPORT SIGNED IN OTHER VENDOR SYSTEM 08/23/2019 Code(s): K31.84 - Gastroparesis (3) GERD (gastroesophageal reflux disease): Code(s): K21.9 - Gastro-esophageal reflux disease without esophagitis Qualifiers: Esophagitis presence: without esophagitis Qualified Code(s): K21.9 - Gastro-esophageal reflux disease without esophagitis (4) Chronic idiopathic constipation: Code(s): K59.04 - Chronic idiopathic constipation (5) RLQ abdominal pain: Code(s): R10.31 - Right lower quadrant pain Medications: New metoclopramide HCl (Reglan) 5 mg PO QIDACHS 120 tabs 6RF K31.84 - Gastroparesis Coding Level of Care Code Est Pt Level 4 (05680) Diagnoses Dysphagia R13.10 Gastroparesis K31.84 Gastroesophageal reflux disease without esophagitis K21.9 Esophagitis presence: without esophagitis Chronic idiopathic constipation K59.04 RLQ abdominal pain R10.31
[2023-03-09 15:16] VITALS: BP 104/57; PULSE 67; BMI 26.8
== END 2023-03-09 16:01 | disposition home or self-care (01) ==
PROVIDERS: PCP Internal Medicine; Visit Provider Nurse Practitioner
DX: R13.10 Dysphagia, unspecified (principal); K31.84 Gastroparesis; K21.9 Gastro-esophageal reflux disease without esophagitis; K59.04 Chronic idiopathic constipation; R10.31 Right lower quadrant pain
CPT/HCPCS: 99214

== ENCOUNTER → 2023-03-09 14:43 | Outpatient (BNVA) | payer OTHER, SELFPAY | PROVIDERS: PCP Internal Medicine; Visit Provider Nurse Practitioner | DX: R13.10 Dysphagia, unspecified (principal); K31.84 Gastroparesis; K21.9 Gastro-esophageal reflux disease without esophagitis; K59.04 Chronic idiopathic constipation; R10.31 Right lower quadrant pain | CPT/HCPCS: 99212 ==

== ENCOUNTER 2023-03-17 09:08 | Outpatient (REF) | payer OTHER, SELFPAY ==
[2023-03-28 22:59] LABS: HPV mRNA E6/E7 rflx Not Detected (Not Detected)
== END 2023-03-17 09:09 | disposition home or self-care (01) ==
LOC: HO.LNP 09:08
PROVIDERS: Visit Provider Advanced Practice Midwife
DX: Z12.4 Encounter for screening for malignant neoplasm of cervix (principal); Z11.51 Encounter for screening for human papillomavirus (HPV); Z78.0 Asymptomatic menopausal state
CPT/HCPCS: 87624; 88142

== ENCOUNTER 2023-03-17 11:00 | Outpatient (AMB) | payer OTHER, SELFPAY ==
--- NOTE | 2023-03-17 11:01 | MHC.OFFVIS ---
Intake Vital Signs 03/17/23 11:11 Height 5 ft 1 in Weight 140 lb 8 oz BMI 26.5 Intake Visit Reasons: new patient Annual Intake Note: The patient agreed to use of a medical payment poster during this encounter. Scribed for [employer] by Aisha Copeland medical payment poster, on 03/17/2023. Aviation Project Manager Required: Yes Information Interpreted: non-clinical & clinical Allergies amoxicillin Allergy (Intermediate, Verified 03/09/23 15:20) Rash griseofulvin [From Candie-PEG (ultramicrosize)] Allergy (Intermediate, Verified 03/09/23 15:20) Rash octopus Allergy (Intermediate, Verified 03/09/23 15:20) Hives pregabalin [From Lyrica] Allergy (Intermediate, Verified 03/09/23 15:20) LEethargy, dizziness celecoxib [From Celebrex] Adverse Reaction (Intermediate, Verified 03/09/23 15:20) Problems with Liver dicyclomine Adverse Reaction (Mild, Verified 03/09/23 15:20) stomach upset oxycodone [From Percocet] Adverse Reaction (Mild, Verified 03/09/23 15:20) Lethargy morphine Adverse Reaction (Verified 03/09/23 15:20) Unknown MANDARIN ORANGES Allergy (Severe, Uncoded 03/17/23 11:12) Lip Swelling, Hives PARMELEX Allergy (Intermediate, Uncoded 02/01/23 12:16) Problems with Liver Medication List - Last Reconciled 03/17/23 by Jovanna Damon LPN acetaminophen 1,000 mg PO BID PRN ascorbic acid (vitamin C) 1 g PO BID aspirin 81 mg PO DAILY calcium carbonate 500 mg PO BID 30 days cholecalciferol (vitamin D3) (Vitamin D3) 25 mcg PO DAILY coenzyme Q10 (H2Q CoQ10) mg PO [cpap As directed] cranberry extract 500 mg PO DAILY docusate sodium 100 mg PO TID esomeprazole magnesium 40 mg PO DAILY ferrous sulfate 325 mg PO DAILY fluocinonide 0.05% topical BID PRN linaclotide (Linzess) 145 mcg PO DAILY loratadine 10 mg PO DAILY 90 days magnesium oxide 800 mg PO DAILY metoclopramide HCl (Reglan) 5 mg PO QIDACHS ondansetron 4 mg PO Q6-8H PRN tacrolimus 0.1% topical vitamin B complex 1 tab PO DAILY Is last menstrual period known: No Post menopausal: Yes Patient : No Do you need a note to return to daycare/school/sports/work: No HPI HPI Comments History of Present Illness Details She is a postmenopausal woman presenting for annual exam. Patient admits she tries to eat a healthy diet including Calcium and Vitamin D. She stays active with exercise. Complains of bump on buttocks; has never happened before. Currently sexually active. Denies vaginal dryness, itching and irritation. STD screening offered; she declines. Denies family hx of colon and ovarian cancer. Last pap smear 03/17/17. Last mammogram 08/17/22. UTD on colonoscopy. [facility] Medical History (Updated 03/17/23 @ 15:02 by Aisha Copeland) Furuncle of buttock Abdominal pain Postmenopausal Muscle cramps Physical exam Fibromyalgia Gastroparesis Midline thoracic back pain Epigastric pain Allergic rhinitis Ingrown toenail of right foot Small bowel obstruction Dyspnea on exertion Elevated AST (SGOT) Nausea RUQ pain H. pylori infection Obesity (BMI 30-39.9) Neuropathy Hearing loss Tendonitis Hyperlipidemia Carpal tunnel syndrome Arthritis Fibromyalgia GRAYOSN (obstructive sleep apnea) Iron deficiency anemia Normocytic anemia Surgical History History of esophagogastroduodenoscopy (EGD) Hx of colonoscopy History of endoscopy History of laparoscopic cholecystectomy History of varicose vein stripping Family history of lipoma History of left breast biopsy History of History of temporal artery biopsy History of carpal tunnel repair Family History Father Heart disease Diabetes Hypertension Mother Diabetes Hypertension Arthritis Fibromyalgia Osteoporosis Sister Breast cancer Social History Household Members: Family Caregiver staying overnight: No Housing: Apartment Alcohol intake: never Patient Tobacco Use Status: Never used Tobacco e-Cigarette/Vaping Use: Never Used Second Hand Smoke Exposure: No service: No 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al status: disabled Cognitive needs: No Hearing needs: Yes Vision needs: No Female Reproductive History Menstrual Menopause type: natural Age of menopause: 39 Total pregnancies: 2 Full term: 2 Number of Living Children: 2 Date of last pap smear: 03/17/17 History of abnormal pap smear: No Date of Mammogram: 08/17/22 History of abnormal mammogram: Yes Physical Exam Vital Signs: BMI result Body Mass Index 26.5 Const General: cooperative, healthy appearing, no acute distress, well developed and alert Orientation/consciousness: patient oriented x3 HEENT Head: Yes normal to inspection Eyes General: appearance normal, both eyes and all related structures Neck Neck: Yes normal visual inspection Thyroid: Thyroid normal Chest Chest palpation & inspection: normal inspection of the chest Breast/axilla inspection: normal inspection of the breasts (no puckering, dimpling, peau de orange, retraction, discharge, masses) Breast/axilla palpation: normal palpation of the breasts Resp Effort & Inspection: normal respiratory effort GI Inspection: Yes normal to inspection Palpation (GI): Soft to palpation (to palpation) Rectal Exam - Female: deferred General: Yes bladder normal to inspection External Female Exam: normal external appearance and normal appearance of the urethra Speculum Exam - Vagina: normal appearance of the vagina, normal palpation and vagina atrophic Speculum Exam - Cervix: normal appearance of the cervix, normal palpation and Other cervical findings present (bled slightly with pap) Bimanual exam- vagina & uterus: normal palpation and normal palpation Bimanual Exam- Adnexa, other: normal adnexae and no masses Skin Other: furuncle of left buttocks Neuro General: patient oriented x3 Cognition (Neuro): normal cognition Extrem General: Yes normal to inspection Psych Attitude: cooperative Thought process: Normal thought process present Assessment & Plan Assessment & Plan (1) Encounter for well woman exam: Code(s): Z01.419 - Encounter for gynecological examination (general) (routine) without abnormal findings Plan: Discussed: Current recommendations for pap smears per ASCCP guidelines. Breast awareness and periodic self breast exams. Encouraged yearly mammograms. Maintaining a healthy lifestyle including a well balanced diet including Calcium and Vitamin D and routine exercise. Recommend Replens, [place] jelly, Astroglide or coconut oil if experience vaginal dryness. Contact office with any PMB. All of her questions and concerns were addressed to the best of my ability. RTO in 1 year for AG. (2) Furuncle of buttock: Code(s): L02.32 - Furuncle of buttock Plan: Apply warm compress or soak with warm wash cloth to area. If become more inflamed or swollen, report to ED. Orders: Orders CT NG by PCR Today Z00.00 - Encounter for general adult medical examination without abnormal findings Pap Smear Today Z00.00 - Encounter for general adult medical examination without abnormal findings, Z78.0 - Asymptomatic menopausal state Coding Level of Care Code New Pt Prev Care 40-64y(37425) Diagnoses Encounter for well woman exam Z01.419 Furuncle of buttock L02.32
[2023-03-17 11:11] VITALS: BMI 26.5
== END 2023-03-17 11:47 | disposition home or self-care (01) ==
PROVIDERS: PCP Internal Medicine; Visit Provider Advanced Practice Midwife
DX: Z01.419 Encounter for gynecological examination (general) (routine) without abnormal findings (principal); L02.32 Furuncle of buttock
CPT/HCPCS: 99386

== ENCOUNTER 2023-03-17 11:00 | Outpatient (REF) | payer OTHER, SELFPAY | END 2023-03-17 11:01 | disposition home or self-care (01) | LOC: HO.LNP 11:00 | PROVIDERS: PCP Internal Medicine; Visit Provider Advanced Practice Midwife | DX: Z01.419 Encounter for gynecological examination (general) (routine) without abnormal findings (principal); L02.32 Furuncle of buttock | CPT/HCPCS: 0353U; 99386 ==

== ENCOUNTER 2023-03-28 07:47 | Outpatient (AMB) | payer OTHER, SELFPAY ==
[2023-03-28 07:50] VITALS: BP 110/70; PULSE 62; O2SAT 97; BMI 27.4
--- NOTE | 2023-03-28 07:50 | MHC.PC.OV ---
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 Accompanied by: Daughter Allergies amoxicillin Allergy (Intermediate, Verified 03/28/23 08:06) Rash griseofulvin [From Candie-PEG (ultramicrosize)] Allergy (Intermediate, Verified 03/28/23 08:06) Rash octopus Allergy (Intermediate, Verified 03/28/23 08:06) Hives pregabalin [From Lyrica] Allergy (Intermediate, Verified 03/28/23 08:06) LEethargy, dizziness celecoxib [From Celebrex] Adverse Reaction (Intermediate, Verified 03/28/23 08:06) Problems with Liver dicyclomine Adverse Reaction (Mild, Verified 03/28/23 08:06) stomach upset oxycodone [From Percocet] Adverse Reaction (Mild, Verified 03/28/23 08:06) Lethargy morphine Adverse Reaction (Verified 03/28/23 08:06) Unknown MANDARIN ORANGES Allergy (Severe, Uncoded 03/28/23 08:06) Lip Swelling, Hives PARMELEX Allergy (Intermediate, Uncoded 03/28/23 08:06) Problems with Liver Medication List - Last Reconciled 03/28/23 by Julia Oviedo MD acetaminophen 1,000 mg PO BID PRN ascorbic acid (vitamin C) 1 g PO BID aspirin 81 mg PO DAILY calcium carbonate 500 mg PO BID 30 days cholecalciferol (vitamin D3) (Vitamin D3) 25 mcg PO DAILY coenzyme Q10 (H2Q CoQ10) mg PO [cpap As directed] cranberry extract 500 mg PO DAILY docusate sodium 100 mg PO TID esomeprazole magnesium 40 mg PO DAILY fluocinonide 0.05% topical BID PRN linaclotide (Linzess) 145 mcg PO DAILY loratadine 10 mg PO DAILY 90 days magnesium oxide 800 mg PO DAILY metoclopramide HCl (Reglan) 5 mg PO QIDACHS ondansetron 4 mg PO Q6-8H PRN tacrolimus 0.1% topical vitamin B complex 1 tab PO DAILY Tobacco use date assessed: 09/22/22 Dental Screening Dental Screen Date: 03/28/23 Did you have a dental visit in the last 12 months?: No Did you have a dental problem in the last 6 months where you did not have access to dental care?: No Was dental information given to patient?: Patient has dentist HPI HPI Comments History of Present Illness Details This is a 62-year-old female with chronic idiopathic constipation and gastroparesis that comes today accompanied by daughter complaining of thoracic spine pain that has been present for about 3 weeks. This has happened in the past but it is more severe now. She also complains of upper limb paresthesias more prominent in the hand that happens at night. I will order nerve conduction study and patient was advised to use wrist splint. Constipation stable with medications. Has gastroparesis and restarted metoclopramide recently. Was complaining of difficulty swallowing solids and liquids that has improved after esophageal dilation. She does have diffuse joint pain and so Rheumatology years ago which diagnosed her with fibromyalgia. [facility] Medical History (Updated 03/28/23 @ 08:19 by Julia Oviedo MD) Furuncle of buttock Abdominal pain Postmenopausal Muscle cramps Physical exam Fibromyalgia Gastroparesis Midline thoracic back pain Epigastric pain Allergic rhinitis Ingrown toenail of right foot Small bowel obstruction Dyspnea on exertion Elevated AST (SGOT) Nausea RUQ pain H. pylori infection Obesity (BMI 30-39.9) Neuropathy Hearing loss Tendonitis Hyperlipidemia Carpal tunnel syndrome Arthritis Fibromyalgia GRAYSON (obstructive sleep apnea) Iron deficiency anemia Normocytic anemia Surgical History History of esophagogastroduodenoscopy (EGD) Hx of colonoscopy History of endoscopy History of laparoscopic cholecystectomy History of varicose vein stripping Family history of lipoma History of left breast biopsy History of History of temporal artery biopsy History of carpal tunnel repair Family History Father Heart disease Diabetes Hypertension Mother Diabetes Hypertension Arthritis Fibromyalgia Osteoporosis Sister Breast cancer Social History Household Members: Family Housing: Apartment Alcohol intake: never Patient Tobacco Use Status: Never used Tobacco e-Cigarette/Vaping Use: Never Used Second Hand Smoke Exposure: No service: No 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al status: disabled Cognitive needs: No Hearing needs: Yes Vision needs: No Questionnaire Thrive Questionnaire Date Thrive assessed: 07/05/22 SUMMER-7 AMB Questionnaire SUMMER-7 Date SUMMER - 7 assessed: 07/05/22 Source: Developed by Drs. Reynaldo Denson, Marcia Bennett, Lewis Sifuentes and colleagues, with an educational poonam from [employer]. Review of Systems Const All systems reviewed & are unremarkable except as noted in HPI and below Eyes Reports no additional complaints, Denies change in vision and Denies other visual disturbances Card Denies chest pain at rest, Denies chest pain with activity, Denies edema, Denies irregular heart rhythm, Denies claudication, Denies dyspnea, Denies dyspnea on exertion, Denies orthopnea, Denies paroxysmal nocturnal dyspnea and Denies slow heart rate Resp Denies cough, Denies dyspnea and Denies dyspnea on exertion GI Denies abdominal pain, Denies change in bowel habits, Denies excessive flatus, Denies nausea and Denies vomiting Denies urinary incontinence, Denies urinary hesitancy and Denies urinary urgency Musc Denies abnormal gait, Reports back pain, Denies atrophy, Denies deformity and Denies limited range of motion Skin/Breast Denies bleeding lesions, Denies changing lesions and Denies rash Neuro Denies abnormal gait and Denies lack of coordination Physical exam (Primary Care) Vital Signs: Last Vital Signs Pulse 62 03/28/23 07:50 BP 110/70 03/28/23 07:50 Pulse Ox 97 03/28/23 07:50 Oxygen Delivery Method Room Air 03/28/23 07:50 BMI result Body Mass Index 27.4 Tobacco/Smoking Status: Tobacco use Status Tobacco use date assessed 09/22/22 03/28/23 07:58 Patient Tobacco Use Status Never used Tobacco 03/28/23 07:58 e-Cigarette/Vaping Use Never Used 03/28/23 07:58 Thrive Assessment: Date of Thrive Assessment Date Thrive assessed 07/05/22 03/28/23 07:58 Eyes General: appearance normal, both eyes and all related structures Eyelids: Yes eyelids normal Conjunctivae: conjunctivae normal Neck Neck: Yes normal visual inspection and Yes supple Resp Effort & Inspection: normal respiratory effort Auscultation: clear to auscultation bilaterally Cardio Jugular venous distension: no JVD Rate: regular rate Rhythm: regular rhythm Heart sounds: S1 normal heart sound present and S2 normal heart sound present Extrem General: Yes full ROM Office Procedures Flu Questionnaire Does the patient have a severe egg allergy?: No Immunizations flu vacc [id number] 6mos up(PF) 60 mcg(15 mcgx4)/0.5 mL IM syringe Performing Provider: Julia Oviedo MD [facility] Documented (not given) by: SAVANAH Delacruz on 03/28/23 07:59 Reason Not Given: Patient Refused Assessment and Plan Assessment & Plan (1) Thoracic spine pain: Code(s): M54.6 - Pain in thoracic spine Plan: X-ray ordered. Continue acetaminophen as needed. (2) Paresthesia: Code(s): R20.2 - Paresthesia of skin Plan: Nerve conduction study ordered. Use wrist splint at bedtime [id number]. (3) Gastroparesis: Comment: 2019 GES - had been on reglan with good effect in the past, she stopped it on her own to try to simplify her pill burden which likely was not wu.aeb Abnormal study. There is moderately severe abnormal retention of solid food in the stomach at 4 hours. REPORT SIGNED IN OTHER VENDOR SYSTEM 08/23/2019 Code(s): K31.84 - Gastroparesis Plan: Continue metoclopramide. (4) Chronic idiopathic constipation: Code(s): K59.04 - Chronic idiopathic constipation Plan: Continue Linzess. Orders: Orders NE nerve conduction velocity Today R20.2 - Paresthesia of skin Complete Blood Count Auto Diff Today D64.9 - Anemia, unspecified Vitamin D 25-OH Total Today E55.9 - Vitamin D deficiency, unspecified Vitamin B6 Today E53.1 - Pyridoxine deficiency Influenza [id number] Immunization Today Z23 - Encounter for immunization XR thoracic spine 2V Today M54.6 - Pain in thoracic spine Vitamin B12 and Folate Today E53.8 - Deficiency of other specified B group vitamins PT Evaluation and Treatment Today M54.6 - Pain in thoracic spine Referrals Rheumatology Referral M25.50 - Pain in unspecified joint Coding Level of Care Code Est Pt Level 4 (80316) Diagnoses Thoracic spine pain M54.6 Paresthesia R20.2 Gastroparesis K31.84 Chronic idiopathic constipation K59.04 Time Spent (min) 22
== END 2023-03-28 08:22 | disposition home or self-care (01) ==
PROVIDERS: PCP Internal Medicine; Visit Provider Internal Medicine
DX: M54.6 Pain in thoracic spine (principal); R20.2 Paresthesia of skin; K31.84 Gastroparesis; K59.04 Chronic idiopathic constipation
CPT/HCPCS: 99214

== ENCOUNTER 2023-03-28 08:29 | Outpatient (REF) | payer OTHER, SELFPAY ==
--- NOTE | ~2023-03-28 | XR_ITS ---
EXAMINATION: XR THORACOLUMBAR SPINE CLINICAL INFORMATION: Pain thoracic spine. COMPARISON: None available. TECHNIQUE: 3 views. FINDINGS: There is normal thoracic kyphosis. The vertebral heights, alignment and disc heights are normal. No visible acute fracture, dislocation seen. There is mild levoscoliosis mid to lower lumbar spine. No aggressive lytic or sclerotic process seen. The paravertebral soft tissues are normal. XR/XR thoracic spine 2V IMPRESSION: No compression fractures or subluxations are identified. The disc spaces are preserved. No endplate changes are seen. The prevertebral soft tissues are normal. The foramina are patent.
[2023-03-28 08:43] LABS: MANUAL DIFF FLAG NO
[2023-03-28 09:08] LABS: Basophils Absolute Auto 0.1 X10*3/uL (0.0-0.2); Basophils Percent Auto 1.1 % (0-2); Eosinophils Absolute Auto 0.1 X10*3/uL (0.0-0.4); Eosinophils Percent Auto 2.6 % (0-4); Hematocrit 34.6 % (37.0-47.0); Hemoglobin 11.3 g/dl (12.0-16.0); Imm Gran Abs Auto 0.21 X10*3/uL (0.00-0.03); Imm Gran Pct Auto 3.9 % (0.0-0.4); Lymphocytes Absolute Auto 1.8 X10*3/uL (1.2-4.9); Lymphocytes Percent Auto 33.1 % (20-40); Mean Corpuscular HGB Conc 32.7 g/dl (31.0-35.0); Mean Corpuscular Hemoglobin 30.6 pg (27.0-33.0); Mean Corpuscular Volume 93.8 fL (80.0-98.0); Mean Platelet Volume 8.9 fL (9.4-12.3); Monocytes Absolute Auto 0.6 X10*3/uL (0.1-1.2); Monocytes Percent Auto 10.7 % (2-11); Neutrophils Absolute Auto 2.6 x10*3/uL (2.0-8.3); Neutrophils Percent Auto 48.6 % (45-73); Platelet Count 242 X10*3/uL (160-400); Red Blood Count 3.69 X10*6/uL (4.20-5.50); Red Cell Distribution Width 13.3 % (11.0-16.0); White Blood Count 5.3 X10*3/uL (4.8-10.8)
[2023-03-28 10:20] LABS: Folate 13.8 ng/mL (> or = 4.0); Vitamin B12 1104 pg/mL (200-900)
[2023-04-01 15:47] LABS: Vitamin B6 95.4 ng/mL (2.1-21.7)
== END 2023-03-28 08:30 | disposition home or self-care (01) ==
LOC: HO.LAB 08:29
PROVIDERS: PCP Internal Medicine; Visit Provider Internal Medicine
DX: E55.9 Vitamin D deficiency, unspecified (principal); E53.1 Pyridoxine deficiency; D64.9 Anemia, unspecified; E53.8 Deficiency of other specified B group vitamins; M54.6 Pain in thoracic spine
CPT/HCPCS: 36415; 72070; 82306; 82607; 82746; 84207; 85025

== ENCOUNTER 2023-04-01 14:49 | Outpatient (AMB) | payer OTHER, SELFPAY ==
[2023-04-01 15:07] VITALS: BP 116/64; PULSE 69; TEMP 36.4; O2SAT 98; BMI 27.2
--- NOTE | 2023-04-01 15:07 | MHC.OFFVIS ---
Intake Vital Signs 04/01/23 15:07 Height 5 ft 1 in Weight 143 lb 11.862 oz BMI 27.2 BP 116/64 Blood Pressure Location Rt brachial Position Sitting Pulse 69 Pulse Source Pulse Oximeter Temp 97.5 F Temp Source Skin Pulse Oximetry (%) 98 Intake Visit Reasons: Joint Pain Intake Note: New pt presents today for consult at the request of PCP. C/o generalized pain. Reports hand pain and changes in color. 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 Supply Chain Vice President Name: Vahid [id number] Accompanied by: Self / Same As Patient Allergies amoxicillin Allergy (Intermediate, Verified 04/01/23 15:12) Rash griseofulvin [From Candie-PEG (ultramicrosize)] Allergy (Intermediate, Verified 04/01/23 15:12) Rash octopus Allergy (Intermediate, Verified 04/01/23 15:12) Hives pregabalin [From Lyrica] Allergy (Intermediate, Verified 04/01/23 15:12) LEethargy, dizziness celecoxib [From Celebrex] Adverse Reaction (Intermediate, Verified 04/01/23 15:12) Problems with Liver dicyclomine Adverse Reaction (Mild, Verified 04/01/23 15:12) stomach upset oxycodone [From Percocet] Adverse Reaction (Mild, Verified 04/01/23 15:12) Lethargy morphine Adverse Reaction (Verified 04/01/23 15:12) Unknown MANDARIN ORANGES Allergy (Severe, Uncoded 04/01/23 15:12) Lip Swelling, Hives PARMELEX Allergy (Intermediate, Uncoded 04/01/23 15:12) Problems with Liver Medication List - Last Reconciled 04/01/23 by Beto Floyd MD acetaminophen 1,000 mg PO BID PRN ascorbic acid (vitamin C) 1 g PO BID aspirin 81 mg PO DAILY calcium carbonate 500 mg PO BID 30 days cholecalciferol (vitamin D3) (Vitamin D3) 25 mcg PO DAILY coenzyme Q10 (H2Q CoQ10) mg PO [cpap As directed] cranberry extract 500 mg PO DAILY docusate sodium 100 mg PO TID esomeprazole magnesium 40 mg PO DAILY fluocinonide 0.05% topical BID PRN linaclotide (Linzess) 145 mcg PO DAILY loratadine 10 mg PO DAILY 90 days magnesium oxide 800 mg PO DAILY metoclopramide HCl (Reglan) 5 mg PO QIDACHS ondansetron 4 mg PO Q6-8H PRN tacrolimus 0.1% topical vitamin B complex 1 tab PO DAILY HPI HPI Comments History of Present Illness Details This is a 62-year-old female who presents for evaluation of multiple joint pain. Patient was seen by [facility], Dr. Guillaume Tesfaye and Dr. Jiménez about 10 years ago and was diagnosed with fibromyalgia and osteoarthritis. Over the last few weeks patient has been having upper back pain as well as increasing pain in her hands and feet. Tingling and numbness of her hands and feet. There is no recent trauma or overuse. Denies any skin rashes. No fevers. She also has neck pain associated with headaches. She has been taking ibuprofen 600 mg daily for her pain PFSH Medical History Furuncle of buttock Abdominal pain Postmenopausal Muscle cramps Physical exam Fibromyalgia Gastroparesis Midline thoracic back pain Epigastric pain Allergic rhinitis Ingrown toenail of right foot Small bowel obstruction Dyspnea on exertion Elevated AST (SGOT) Nausea RUQ pain H. pylori infection Obesity (BMI 30-39.9) Neuropathy Hearing loss Tendonitis Hyperlipidemia Carpal tunnel syndrome Arthritis Fibromyalgia GRAYSON (obstructive sleep apnea) Iron deficiency anemia Normocytic anemia Surgical History History of esophagogastroduodenoscopy (EGD) Hx of colonoscopy History of endoscopy History of laparoscopic cholecystectomy History of varicose vein stripping Family history of lipoma History of left breast biopsy History of History of temporal artery biopsy History of carpal tunnel repair Family History Father Heart disease Diabetes Hypertension Mother Diabetes Hypertension Arthritis Fibromyalgia Osteoporosis Sister Breast cancer Social History Household Members: Family Caregiver staying overnight: No Housing: Apartment Alcohol intake: never Patient Tobacco Use Status: Never used Tobacco e-Cigarette/Vaping Use: Never Used Second Hand Smoke Exposure: No service: No 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al status: disabled Cognitive needs: No Hearing needs: Yes Vision needs: No Review of Systems ENT Reports neck pain GI Reports heartburn and Reports nausea Musc Reports back pain, Reports arthralgias and Reports neck pain Psych Reports abnormal sleep pattern Physical Exam Vital Signs: Last Vital Signs Temp 97.5 F 04/01/23 15:07 Pulse 69 04/01/23 15:07 BP 116/64 04/01/23 15:07 Pulse Ox 98 04/01/23 15:07 BMI result Body Mass Index 27.2 Const General: cooperative, healthy appearing and comfortable Nutritional Appearance: overweight Orientation/consciousness: patient oriented x3 Limitations: no limitations HEENT Head: Yes normocephalic and Yes atraumatic Mouth: moist mucous membranes Resp Effort & Inspection: normal respiratory effort and able to speak in complete sentences Auscultation: clear to auscultation bilaterally Cardio Rate: regular rate Rhythm: regular rhythm Heart sounds: S1 normal heart sound present Neuro General: patient oriented x3 Extrem Other: Osteoarthritic changes of both hands with prominent Heberden's especially and little fingers bilaterally. Slightly tender Tenderness to palpation the upper thoracic vertebrae Bilateral heel tenderness Assessment & Plan Assessment & Plan (1) Polyarthralgia: Code(s): M25.50 - Pain in unspecified joint Plan: This is a 62-year-old female who presents for evaluation of diffuse joint pain. She was previously diagnosed with fibromyalgia by [facility]. Comprehensive serology at that time was unremarkable. I do not see any signs of an autoimmune rheumatic disease upon my evaluation today. She does have a few tender to be in her upper thoracic region, a thoracic spine x-ray was ordered by her PCP. Will review. I suggested a neck x-ray to evaluate her for cervical spine arthritis. Patient refused. Stated that she had the same x-ray years ago and it showed arthritis. Follow-up in 3 weeks (2) Paresthesia: Code(s): R20.2 - Paresthesia of skin Plan: An EMG/NCV will order by her PCP to evaluate for bilateral carpal tunnel syndrome. Will review. Plan I spent 46 minutes reviewing patient's chart, evaluating patient, counseling patient & her daughter and documenting in the chart Coding Level of Care Code New Pt Level 4 (62733) Diagnoses Polyarthralgia M25.50 Paresthesia R20.2
== END 2023-04-01 15:46 | disposition home or self-care (01) ==
PROVIDERS: PCP Internal Medicine; Visit Provider Student in an Organized Health Care Education/Training Program
DX: M25.50 Pain in unspecified joint (principal); R20.2 Paresthesia of skin
CPT/HCPCS: 99204

== ENCOUNTER → 2023-04-01 14:49 | Outpatient (BNVA) | payer OTHER, SELFPAY | PROVIDERS: PCP Internal Medicine; Visit Provider Student in an Organized Health Care Education/Training Program ==

== ENCOUNTER 2023-04-08 14:20 | Outpatient (AMB) | payer OTHER, SELFPAY ==
--- NOTE | 2023-04-08 14:28 | MHC.OFFVIS ---
Intake Vital Signs 04/08/23 14:29 Height 5 ft 1 in Weight 145 lb 8.081 oz BMI 27.5 BP 101/52 L Blood Pressure Location Lt brachial Position Sitting Pulse 66 Intake Visit Reasons: 4 week follow up Intake Note: Patient presents to in office visit follow up of epigastric pain. CC: Patient reports doing well with metoclopramide and denies having any GI symptoms today. Contact Lens Blocker And Cutter Required: No Accompanied by: Daughter Allergies amoxicillin Allergy (Intermediate, Verified 04/20/23 13:59) Rash griseofulvin [From Candie-PEG (ultramicrosize)] Allergy (Intermediate, Verified 04/20/23 13:59) Rash octopus Allergy (Intermediate, Verified 04/20/23 13:59) Hives pregabalin [From Lyrica] Allergy (Intermediate, Verified 04/20/23 13:59) LEethargy, dizziness celecoxib [From Celebrex] Adverse Reaction (Intermediate, Verified 04/20/23 13:59) Problems with Liver dicyclomine Adverse Reaction (Mild, Verified 04/20/23 13:59) stomach upset oxycodone [From Percocet] Adverse Reaction (Mild, Verified 04/20/23 13:59) Lethargy morphine Adverse Reaction (Verified 04/20/23 13:59) Unknown MANDARIN ORANGES Allergy (Severe, Uncoded 04/20/23 13:59) Lip Swelling, Hives PARMELEX Allergy (Intermediate, Uncoded 04/20/23 13:59) Problems with Liver HPI 4 week follow up HPI Details Assessment & Plan (1) Dysphagia: Comment: solids and liquids Code(s): R13.10 - Dysphagia, unspecified Plan: Egyptian #Carolyn Live She is here with her daughter who is supportive. We review the mod barium swallow and she is able to repeat verbalize the safe swallowing precautions that were taught to her and she says her swallowing has been good since the last time I saw her. She does have some disorganization with chewing but should do okay with the speech therapy recommendations. She feels she has been doing well in terms of eating w/o reglan, but she stopped it only to improve the pill burden, not because of any a/e. She does not have N/V, but is having early satiety and pain in the epigastrum and chest that is likely r/t the gastroparesis......so I think that she really needs the reglan. She also presented to the ER for chest pain and they ruled out stroke or cardiac causes. I point out to her daughter that likely if she would stay on her Reglan she would have saved herself an ER visit since all of the symptoms she is continuing to describe to me are all consistent with her profound gastroparesis discovered on the gastric emptying study. With this information she is willing to restart it. Return office visit in 4 weeks (2) Gastroparesis: Comment: 2019 GES - had been on reglan with good effect in the past, she stopped it on her own to try to simplify her pill burden which likely was not wu.aeb Abnormal study. There is moderately severe abnormal retention of solid food in the stomach at 4 hours. REPORT SIGNED IN OTHER VENDOR SYSTEM 08/23/2019 Code(s): K31.84 - Gastroparesis (3) GERD (gastroesophageal reflux disease): Code(s): K21.9 - Gastro-esophageal reflux disease without esophagitis Qualifiers: Esophagitis presence: without esophagitis Qualified Code(s): K21.9 - Gastro-esophageal reflux disease without esophagitis (4) Chronic idiopathic constipation: Code(s): K59.04 - Chronic idiopathic constipation (5) RLQ abdominal pain: Code(s): R10.31 - Right lower quadrant pain Medications: New metoclopramide HCl (Reglan) 5 mg PO QIDACHS 1 20 tabs 6RF K31.84 - Gastropar esis Laboratory Tests 02/26/23 03/28/23 20:39 08:42 Plt Count 242 Total Bilirubin 0.2 Direct Bilirubin < 0.2 AST 23 ALT 17 Alkaline Phosphata se 84 TODAY'S VISIT Egyptian #Dtr translates per pt request She has restarted taking the reglan at 1 a day and this is helping her. She is happy with this and not having any more CP. So now she continues on this medication along with magnesium oxide. She asks how long an esophageal dilation will last, (she had her esophagus dilated 01/2023) and I explain that there is no set time for this, it is quite variable person to person. No dysphagia now. She also had evidence of disorganized chewing on a barium swallow so it is uncertain how much each of these contributes to her dysphagia over time. She is having a lot of body aches and just saw her PCP and they will be working this up further with EMG and other studies. She has OA and FMS. ROV 3 mos. PFSH Medical History Furuncle of buttock Abdominal pain Postmenopausal Muscle cramps Physical exam Fibromyalgia Gastroparesis Midline thoracic back pain Epigastric pain Allergic rhinitis Ingrown toenail of right foot Small bowel obstruction Dyspnea on exertion Elevated AST (SGOT) Nausea RUQ pain H. pylori infection Obesity (BMI 30-39.9) Neuropathy Hearing loss Tendonitis Hyperlipidemia Carpal tunnel syndrome Arthritis Fibromyalgia GRAYSON (obstructive sleep apnea) Iron deficiency anemia Normocytic anemia Surgical History History of esophagogastroduodenoscopy (EGD) Hx of colonoscopy History of endoscopy History of laparoscopic cholecystectomy History of varicose vein stripping Family history of lipoma History of left breast biopsy History of History of temporal artery biopsy History of carpal tunnel repair Family History Father Heart disease Diabetes Hypertension Mother Diabetes Hypertension Arthritis Fibromyalgia Osteoporosis Sister Breast cancer Social History Household Members: Family Housing: Apartment Alcohol intake: never Patient Tobacco Use Status: Never used Tobacco e-Cigarette/Vaping Use: Never Used Second Hand Smoke Exposure: No service: No 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al status: disabled Cognitive needs: No Hearing needs: Yes Vision needs: No Review of Systems Const Denies fatigue, Denies fever(s), Denies night sweats, Denies poor appetite and Denies weight loss ENT Reports Normal hearing present, Denies dental pain, Reports dysphagia, Denies hearing loss, Denies mouth pain, Denies odynophagia, Denies throat swelling, Denies tongue swelling and Reports other (Dentition adequate) Card Reports no additional complaints Resp Reports no additional complaints GI Denies abdominal pain, Denies melena, Denies bloating, Denies hematochezia, Denies constipation, Denies GI cramping, Reports dysphagia, Denies excessive flatus, Reports early satiety, Reports heartburn, Denies diarrhea, Denies nausea, Denies odynophagia, Denies vomiting and Denies hematemesis Musc Reports back pain, Reports myalgias, Reports arthralgias and Reports numbness Skin/Breast Denies pruritus, Denies lesions, Denies rash and Denies jaundice Neuro Reports Normal hearing present, Denies Abnormal speech present and Reports numbness Endo Denies fatigue Aller/Immun Denies throat swelling and Denies tongue swelling Physical Exam Vital Signs: Last Vital Signs Pulse 66 04/08/23 14:29 BP 101/52 L 04/08/23 14:29 BMI result Body Mass Index 27.5 Const General: cooperative, no acute distress, well developed and well groomed Nutritional Appearance: average body habitus and well nourished Orientation/consciousness: oriented to person, oriented to place and oriented to time Limitations: language barrier HEENT Head: Yes normocephalic and Yes atraumatic Eyes General: appearance normal, both eyes and all related structures Pupils: Equal, round and reactive pupils present Neck Neck: Yes normal visual inspection and Yes no lymphadenopathy Thyroid: Thyroid normal Resp Effort & Inspection: normal respiratory effort and able to speak in complete sentences Auscultation: clear to auscultation bilaterally Cardio Rate: regular rate Rhythm: regular rhythm Heart sounds: Normal, physiologic split S2 sound present Peripheral pulses: radial pulses present and posterior tibial pulses present GI Inspection: No distended and No Abdominal panniculus present Palpation (GI): Soft to palpation, nontender, no guarding, not rigid and No hepatosplenomegaly present Percussion: Yes normal to percussion Auscultation: normal bowel sounds Rectal Exam - Female: deferred Skin General skin exam: no rashes or lesions noted, turgor normal, skin not dry, no jaundice, No spider nevi and no striae Rashes: no rashes Nails: normal Neuro General: oriented to person, oriented to place and oriented to time Cranial nerves: Yes Equal, round and reactive pupils present and Yes Normal hearing present Speech: No Abnormal speech present Extrem General: Yes normal to inspection, No clubbing, No cyanosis and No edema Psych Appearance: grossly normal and well kempt Mental Status: mental status grossly normal Speech and movement: Normal speech and movement present Affect: normal affect Attitude: cooperative Thought process: Normal thought process present and not confabulating Thought content: Normal thought content present Insight: Limited insight present (Psych) Judgement: Limited judgement present (Psych) Assessment & Plan Assessment & Plan (1) Dysphagia: Comment: solids and liquids Code(s): R13.10 - Dysphagia, unspecified Plan: Egyptian #Dtr translates per pt request She has restarted taking the reglan at 1 a day and this is helping her. She is happy with this and not having any more CP. So now she continues on this medication along with magnesium oxide. She asks how long an esophageal dilation will last, (she had her esophagus dilated 01/2023) and I explain that there is no set time for this, it is quite variable person to person. No dysphagia now. She also had evidence of disorganized chewing on a barium swallow so it is uncertain how much each of these contributes to her dysphagia over time. She is having a lot of body aches and just saw her PCP and they will be working this up further with EMG and other studies. She has OA and FMS. ROV 3 mos. (2) Gastroparesis: Comment: 2019 GES - had been on reglan with good effect in the past, she stopped it on her own to try to simplify her pill burden which likely was not wu.aeb Abnormal study. There is moderately severe abnormal retention of solid food in the stomach at 4 hours. REPORT SIGNED IN OTHER VENDOR SYSTEM 08/23/2019 Code(s): K31.84 - Gastroparesis (3) GERD (gastroesophageal reflux disease): Code(s): K21.9 - Gastro-esophageal reflux disease without esophagitis Qualifiers: Esophagitis presence: without esophagitis Qualified Code(s): K21.9 - Gastro-esophageal reflux disease without esophagitis (4) Chronic idiopathic constipation: Code(s): K59.04 - Chronic idiopathic constipation (5) Hepatic steatosis: Comment: Laboratory Tests baseline: 10/2020 AST/ALT total bilirubin normal at 0.4, ferritin 191, alk-phos 120, hepatitis a B and C screens negative along with HIV screen, autoimmune work up negative. Baseline ultrasound with elastography 01/29/21 (F0) Current Laboratory Tests 07/22/2301/09/23 14:3814:[id number] Total Bilirubin 0.5 AST 22 ALT 19 Alkaline Phosphatase 86 Alpha Fetoprotein 3.5 US ABDOMEN 01/11/23 FINDINGS: PANCREAS: Normal. LIVER: The liver is normal in size. The liver contour is normal. There is diffuse increased liver echogenicity. No focal hepatic lesion. There is no intrahepatic biliary duct dilatation seen. GALLBLADDER: Surgically absent. COMMON BILE DUCT: Normal in caliber measuring 0.6 cm in diameter. RIGHT KIDNEY: Normal. No hydronephrosis. No renal calculi or focal parenchymal lesions. The kidney measures 9.5 cm in maximum dimension. FREE FLUID: None. US/US abdomen limited IMPRESSION: Diffuse mildly echogenic liver without focal lesion. ? Rest of the visualized pancreas, CBD and the right kidney appears unremarkable. ? Cholecystectomy. Code(s): K76.0 - Fatty (change of) liver, not elsewhere classified Coding Level of Care Code Est Pt Level 3 (86852) Diagnoses Dysphagia R13.10 Gastroparesis K31.84 Gastroesophageal reflux disease without esophagitis K21.9 Esophagitis presence: without esophagitis Chronic idiopathic constipation K59.04 Hepatic steatosis K76.0
[2023-04-08 14:29] VITALS: BP 101/52; PULSE 66; BMI 27.5
== END 2023-04-08 14:49 | disposition home or self-care (01) ==
PROVIDERS: PCP Internal Medicine; Visit Provider Nurse Practitioner
DX: R13.10 Dysphagia, unspecified (principal); K31.84 Gastroparesis; K21.9 Gastro-esophageal reflux disease without esophagitis; K59.04 Chronic idiopathic constipation; K76.0 Fatty (change of) liver, not elsewhere classified
CPT/HCPCS: 99213

== ENCOUNTER → 2023-04-08 14:20 | Outpatient (BNVA) | payer OTHER, SELFPAY | PROVIDERS: PCP Internal Medicine; Visit Provider Nurse Practitioner | DX: R13.10 Dysphagia, unspecified (principal); K31.84 Gastroparesis; K21.9 Gastro-esophageal reflux disease without esophagitis; K59.04 Chronic idiopathic constipation; K76.0 Fatty (change of) liver, not elsewhere classified | CPT/HCPCS: 99212 ==

== ENCOUNTER 2023-04-18 11:40 | Outpatient (REF) | payer OTHER, SELFPAY ==
[2023-04-18 11:54] LABS: MANUAL DIFF FLAG NO
[2023-04-18 12:16] LABS: Basophils Absolute Auto 0.1 X10*3/uL (0.0-0.2); Basophils Percent Auto 1.1 % (0-2); Eosinophils Absolute Auto 0.1 X10*3/uL (0.0-0.4); Eosinophils Percent Auto 2.3 % (0-4); Hemoglobin 11.2 g/dl (12.0-16.0); Imm Gran Abs Auto 0.12 X10*3/uL (0.00-0.03); Imm Gran Pct Auto 2.2 % (0.0-0.4); Lymphocytes Absolute Auto 1.9 X10*3/uL (1.2-4.9); Lymphocytes Percent Auto 34.5 % (20-40); Mean Corpuscular HGB Conc 32.9 g/dl (31.0-35.0); Mean Corpuscular Hemoglobin 30.9 pg (27.0-33.0); Mean Corpuscular Volume 93.7 fL (80.0-98.0); Monocytes Absolute Auto 0.6 X10*3/uL (0.1-1.2); Monocytes Percent Auto 10.1 % (2-11); Neutrophils Absolute Auto 2.8 x10*3/uL (2.0-8.3); Neutrophils Percent Auto 49.8 % (45-73); Platelet Count 238 X10*3/uL (160-400); Red Blood Count 3.63 X10*6/uL (4.20-5.50); Red Cell Distribution Width 12.8 % (11.0-16.0); White Blood Count 5.6 X10*3/uL (4.8-10.8)
[2023-04-18 12:34] LABS: Alanine Aminotransferase 22 U/L (0-31); Albumin Level 4.1 g/dL (3.5-5.0); Alkaline Phosphatase 88 U/L (39-117); Anion Gap 8 (12-20); Aspartate Amino Transferase 24 U/L (5-31); Bilirubin Total 0.3 mg/dL (0.0-1.0); Blood Urea Nitrogen 13 mg/dL (9-16); Calcium 9.1 mg/dL (8.4-10.2); Carbon Dioxide 32 mmol/L (22-29); Chloride 106 mmol/L (96-108); Estimated Glomerular Filt Rate > 60; Glucose Random 84 mg/dL (60-115); Lactate Dehydrogenase 193 U/L (122-220); Potassium 4.1 mmol/L (3.3-5.1); Sodium 142 mmol/L (135-145); Total Protein 7.1 g/dL (6.5-8.0)
[2023-04-18 12:50] LABS: Ferritin 204 ng/mL (10-250)
[2023-04-19 18:23] LABS: Erythropoietin (EPO) 9.8 mIU/mL (2.6-18.5)
== END 2023-04-18 11:41 | disposition home or self-care (01) ==
LOC: HO.LAB 11:40
PROVIDERS: PCP Internal Medicine; Visit Provider Internal Medicine Medical Oncology
DX: D50.9 Iron deficiency anemia, unspecified (principal)
CPT/HCPCS: 36415; 80053; 82668; 82728; 83615; 85025

== ENCOUNTER 2023-04-20 13:47 | Outpatient (AMB) | payer OTHER, SELFPAY ==
--- NOTE | 2023-04-20 13:54 | A.OFFVIS_ITS ---
Intake Vital Signs 04/20/23 13:56 Height 5 ft 1 in Weight 143 lb 8.335 oz BMI 27.1 BP 108/62 Blood Pressure Location Rt brachial Position Sitting Pulse 68 Pulse Source Pulse Oximeter Temp 97.3 F Temp Source Skin Pulse Oximetry (%) 97 Intake Visit Reasons: JOINT PAIN Intake Note: Pt last seen 04/01/23, presents today for 3 week follow up on hand pain and other pains. Motor Route Carrier Required: Yes Accompanied by: Daughter Allergies amoxicillin Allergy (Intermediate, Verified 04/20/23 13:59) Rash griseofulvin [From Candie-PEG (ultramicrosize)] Allergy (Intermediate, Verified 04/20/23 13:59) Rash octopus Allergy (Intermediate, Verified 04/20/23 13:59) Hives pregabalin [From Lyrica] Allergy (Intermediate, Verified 04/20/23 13:59) LEethargy, dizziness celecoxib [From Celebrex] Adverse Reaction (Intermediate, Verified 04/20/23 13:59) Problems with Liver dicyclomine Adverse Reaction (Mild, Verified 04/20/23 13:59) stomach upset oxycodone [From Percocet] Adverse Reaction (Mild, Verified 04/20/23 13:59) Lethargy morphine Adverse Reaction (Verified 04/20/23 13:59) Unknown MANDARIN ORANGES Allergy (Severe, Uncoded 04/20/23 13:59) Lip Swelling, Hives PARMELEX Allergy (Intermediate, Uncoded 04/20/23 13:59) Problems with Liver Medication List - Last Reconciled 04/20/23 by Beto Floyd MD acetaminophen 1,000 mg PO BID PRN ascorbic acid (vitamin C) 1 g PO BID aspirin 81 mg PO DAILY calcium carbonate 500 mg PO BID 30 days cholecalciferol (vitamin D3) (Vitamin D3) 25 mcg PO DAILY coenzyme Q10 (H2Q CoQ10) 200 mg PO DAILY [cpap As directed] fluocinonide 0.05% 0.05 appl topical BID PRN loratadine 10 mg PO DAILY 90 days magnesium oxide 800 mg PO DAILY metoclopramide HCl (Reglan) 5 mg PO QIDACHS ondansetron 4 mg PO Q6-8H PRN tacrolimus 0.1% 0.1 appl topical DAILY vitamin B complex 1 tab PO DAILY HPI HPI Comments History of Present Illness Details Patient returns for follow-up after completion of her thoracolumbar x- ray. She states that over the last few weeks she has been having tingling and numb sensation of both her feet, worse on the left. This sensation lasts all day. She cannot think of anything that makes her symptoms better or worse. She states that she was on gabapentin 2 years ago and it caused brain fog. Initial history: This is a 62-year-old female who presents for evaluation of multiple joint pain. Patient was seen by [facility], Dr. Guillaume Tesfaye and Dr. Jiménez about 10 years ago and was diagnosed with fibromyalgia and osteoarthritis. Over the last few weeks patient has been having upper back pain as well as increasing pain in her hands and feet. Tingling and numbness of her hands and feet. There is no recent trauma or overuse. Denies any skin rashes. No fevers. She also has neck pain associated with headaches. She has been taking ibuprofen 600 mg daily for her pain [facility] Medical History Furuncle of buttock Abdominal pain Postmenopausal Muscle cramps Physical exam Fibromyalgia Gastroparesis Midline thoracic back pain Epigastric pain Allergic rhinitis Ingrown toenail of right foot Small bowel obstruction Dyspnea on exertion Elevated AST (SGOT) Nausea RUQ pain H. pylori infection Obesity (BMI 30-39.9) Neuropathy Hearing loss Tendonitis Hyperlipidemia Carpal tunnel syndrome Arthritis Fibromyalgia GRAYSON (obstructive sleep apnea) Iron deficiency anemia Normocytic anemia Surgical History History of esophagogastroduodenoscopy (EGD) Hx of colonoscopy History of endoscopy History of laparoscopic cholecystectomy History of varicose vein stripping Family history of lipoma History of left breast biopsy History of History of temporal artery biopsy History of carpal tunnel repair Family History Father Heart disease Diabetes Hypertension Mother Diabetes Hypertension Arthritis Fibromyalgia Osteoporosis Sister Breast cancer Social History Household Members: Family Caregiver staying overnight: No Housing: Apartment Alcohol intake: never Patient Tobacco Use Status: Never used Tobacco e-Cigarette/Vaping Use: Never Used Second Hand Smoke Exposure: No service: No 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al status: disabled Cognitive needs: No Hearing needs: Yes Vision needs: No Review of Systems Musc Reports back pain, Reports arthralgias, Reports numbness and Reports tingling Neuro Reports numbness, Reports tingling and Reports paresthesias Physical Exam Vital Signs: Last Vital Signs Temp 97.3 F 04/20/23 13:56 Pulse 68 04/20/23 13:56 BP 108/62 04/20/23 13:56 Pulse Ox 97 04/20/23 13:56 BMI result Body Mass Index 27.1 Const General: cooperative, healthy appearing and comfortable Nutritional Appearance: overweight Orientation/consciousness: patient oriented x3 Limitations: no limitations HEENT Head: Yes normocephalic and Yes atraumatic Resp Effort & Inspection: normal respiratory effort and able to speak in complete sentences Neuro General: patient oriented x3 Extrem Other: Osteoarthritic changes of both hands with prominent Heberden's especially and little fingers bilaterally. Few myofascial tender points in her back Reduced sensation in the left lower extremity peripherally Assessment & Plan Assessment & Plan (1) Paresthesia: Code(s): R20.2 - Paresthesia of skin Plan: Bilateral lower extremity tingling and numbness, worse on the left. EMG/NCV was ordered by patient's PCP. I referred patient to neurology. Plan I spent 15 minutes reviewing patient's chart, evaluating patient, placing orders, counseling patient & her daughter and documenting in the chart Orders: Referrals Neurology Referral R20.2 - Paresthesia of skin Coding Level of Care Code Est Pt Level 3 (72719) Diagnoses Paresthesia R20.2
[2023-04-20 13:56] VITALS: BP 108/62; PULSE 68; TEMP 36.3; O2SAT 97; BMI 27.1
== END 2023-04-20 14:16 | disposition home or self-care (01) ==
PROVIDERS: PCP Internal Medicine; Visit Provider Student in an Organized Health Care Education/Training Program
DX: R20.2 Paresthesia of skin (principal)
CPT/HCPCS: 99213

== ENCOUNTER → 2023-04-20 13:47 | Outpatient (BNVA) | payer OTHER, SELFPAY | PROVIDERS: PCP Internal Medicine; Visit Provider Student in an Organized Health Care Education/Training Program | DX: R20.2 Paresthesia of skin (principal) | CPT/HCPCS: 99212 ==

== ENCOUNTER 2023-04-20 14:26 | Outpatient (REF) | payer OTHER, SELFPAY | END 2023-04-20 14:27 | disposition home or self-care (01) | LOC: HO.HAP 14:26 | PROVIDERS: Visit Provider Internal Medicine | DX: Z46.1 Encounter for fitting and adjustment of hearing aid (principal); H90.3 Sensorineural hearing loss, bilateral | CPT/HCPCS: V5266 ==

== ENCOUNTER 2023-04-27 09:33 | Outpatient (REF) | payer OTHER, SELFPAY ==
--- NOTE | 2023-04-27 09:36 | EMG_ITS ---
Please see scanned EMG / Nerve Conduction Report. MTDD
== END 2023-04-27 09:34 | disposition home or self-care (01) ==
LOC: HO.NEURO 09:33
PROVIDERS: PCP Internal Medicine; Visit Provider Internal Medicine
DX: R20.2 Paresthesia of skin (principal)
CPT/HCPCS: 95885; 95913

== ENCOUNTER 2023-06-09 13:48 | Outpatient (REF) | payer OTHER, SELFPAY | END 2023-06-09 13:49 | disposition home or self-care (01) | LOC: HO.XRAY 13:48 | PROVIDERS: PCP Internal Medicine; Visit Provider Internal Medicine | DX: M79.671 Pain in right foot (principal) | CPT/HCPCS: 73620 ==

== ENCOUNTER 2023-06-15 11:19 | Outpatient (REF) | payer OTHER, SELFPAY ==
--- NOTE | 2023-06-15 13:00 | MHC.AU.HA3 ---
Hearing Instrument Follow-Up- Binaural Date of Visit: 06/15/23 Equipment Planner Used: Hugo, [facility] Right Ear: Telly, Model, Color, Serial Number: Christiano [id number] SN: [id number] Color: Graphite Reis Marzipan Molder Repair Warranty: 11/08/2025 Marzipan Molder Loss and Damage Warranty: 11/08/2025 [facility] Service Plan: 10/13/2023 Battery Size: 312 Earmold/Dome/CShell/SlimTip:[employer] Formula II Canal lock Dispensed By: [facility] Date of Fittin10/12/2022 Left Ear: Telly, Model, Color, Serial Number: Christiano [id number] SN: [id number] Color: Graphite Reis Marzipan Molder Repair Warranty: 11/08/2025 Marzipan Molder Loss and Damage Warranty: 11/08/2025 [facility] Service Plan: 10/13/2023 Battery Size: 312 Earmold/Dome/CShell/SlimTip: [employer] Formula II Canal lock Dispensed By: [facility] Date of Fittin10/12/2022 Follow-Up Summary: Raquel visited for fitting with her new earmolds. Attached to hearing aids, which were cleaned and vacuumed. Listening check OK. Patient reports a comfortable fit with the new earmolds. She has her old ones in her possession as backups if ever needed. Encouraged to call if there are any issues with fit. Recommendations: Recommendations: Hearing instrument maintenance in 6 months, or sooner if needed. Diagnosis Code(s): Primary Diagnosis: H90.3 Bilateral Sensorineural Hearing Loss Signature: Provider: Wally Treviño, [facility]
== END 2023-06-15 11:20 | disposition home or self-care (01) ==
LOC: HO.HAP 11:19
PROVIDERS: Visit Provider Internal Medicine
DX: Z46.1 Encounter for fitting and adjustment of hearing aid (principal); H90.3 Sensorineural hearing loss, bilateral
CPT/HCPCS: 92593; 99499; V5264; V5266

== ENCOUNTER 2023-06-23 14:53 | Outpatient (AMB) | payer OTHER, SELFPAY ==
--- NOTE | 2023-06-23 14:57 | MHC.OFFVIS ---
Intake Vital Signs 06/23/23 14:59 Height 5 ft 1 in Weight 147 lb BMI 27.8 BP 134/66 Blood Pressure Location Lt brachial Position Sitting Pulse 66 Pulse Source Pulse Oximeter Pulse Oximetry (%) 99 Oxygen Delivery Method Room Air Intake Visit Reasons: INP-Paresthesia of the skin - Conf Allergies griseofulvin [From Candie-PEG (ultramicrosize)] Allergy (Intermediate, Verified 07/14/23 13:51) Rash octopus Allergy (Intermediate, Verified 07/14/23 13:51) Hives pregabalin [From Lyrica] Allergy (Intermediate, Verified 07/14/23 13:51) LEethargy, dizziness celecoxib [From Celebrex] Adverse Reaction (Intermediate, Verified 07/14/23 13:51) Problems with Liver dicyclomine Adverse Reaction (Mild, Verified 07/14/23 13:51) stomach upset oxycodone [From Percocet] Adverse Reaction (Mild, Verified 07/14/23 13:51) Lethargy morphine Adverse Reaction (Verified 07/14/23 13:51) Unknown MANDARIN ORANGES Allergy (Severe, Uncoded 07/14/23 13:51) Lip Swelling, Hives PARMELEX Allergy (Intermediate, Uncoded 07/14/23 13:51) Problems with Liver HPI HPI Comments History of Present Illness Details 62 y/o female patient presents for new in-person visit for paresthesia. Pt reports left side of back, bilateral arms, hands and feet numbness and tingling. The numbness and tingling starts left upper to mid back and radiates to bilateral hands and feet. Denies burning sensation, but reports intermittent electric shooting pain on her feet. Denies injuries. Foot Xray result reviewed, plantar and superior calcaneal spurring. Pt referred to podiatry. Pt also referred to physical therapy for her back, and not started yet. [facility] spine X ray result reviwed. No compression fractures or subluxations are identified. The disc spaces are preserved. No endplate changes are seen. The prevertebral soft tissues are normal. The foramina are patent. She tried gabapentin, but not tolerated, caused cognitive changes. Pt referred to physical therapy and Pt also reports long hx of fibromyalgia, arthritis of neck, lower back and hands and feet. 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 Pt also was diagnosed with carpal tunnel and had multiple surgeries. EMG of lower extremities result was normal motor and sensory nerve conduction study and normal EMG of the right L4-S2 innervated muscles. She has hx of anemia, constipation and small bowel obstruction had multiple admission. [facility] Medical History Furuncle of buttock Abdominal pain Postmenopausal Muscle cramps Physical exam Fibromyalgia Gastroparesis Midline thoracic back pain Epigastric pain Allergic rhinitis Ingrown toenail of right foot Small bowel obstruction Dyspnea on exertion Elevated AST (SGOT) Nausea RUQ pain H. pylori infection Obesity (BMI 30-39.9) Neuropathy Hearing loss Tendonitis Hyperlipidemia Carpal tunnel syndrome Arthritis Fibromyalgia GRAYSON (obstructive sleep apnea) Iron deficiency anemia Normocytic anemia Surgical History History of esophagogastroduodenoscopy (EGD) Hx of colonoscopy History of endoscopy History of laparoscopic cholecystectomy History of varicose vein stripping Family history of lipoma History of left breast biopsy History of History of temporal artery biopsy History of carpal tunnel repair Family History Father Heart disease Diabetes Hypertension Mother Diabetes Hypertension Arthritis Fibromyalgia Osteoporosis Sister Breast cancer Social History Household Members: Family Caregiver staying overnight: No Housing: Apartment Alcohol intake: never Patient Tobacco Use Status: Never used Tobacco e-Cigarette/Vaping Use: Never Used Second Hand Smoke Exposure: No service: No 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al status: disabled Cognitive needs: No Hearing needs: Yes Vision needs: No Review of Systems Const All systems reviewed & are unremarkable except as noted in HPI and below Physical Exam Vital Signs: Last Vital Signs Pulse 66 06/23/23 14:59 BP 134/66 06/23/23 14:59 Pulse Ox 99 06/23/23 14:59 Oxygen Delivery Method Room Air 06/23/23 14:59 BMI result Body Mass Index 27.8 Const General: cooperative Nutritional Appearance: overweight Orientation/consciousness: patient oriented x3 Neck Neck: Yes full ROM and Yes supple Resp Effort & Inspection: normal respiratory effort and able to speak in complete sentences Neuro General: patient oriented x3 Deep tendon reflexes (DTR's): Right triceps reflex intensity grade: 2+, Left triceps reflex intensity grade: 2+, Rt Biceps (C5, C6): 2+, Left biceps reflex intensity grade: 2+, Right brachioradialis reflex intensity grade: 2+, Left brachioradialis reflex intensity grade: 2+, Right patellar reflex intensity grade: 2+ and Left patellar reflex intensity grade: 2+ Psych Appearance: grossly normal Mental Status: mental status grossly normal Speech and movement: Normal speech and movement present Affect: normal affect Assessment & Plan Assessment & Plan (1) Calcaneal spur of foot: Code(s): M77.30 - Calcaneal spur, unspecified foot (2) Hand numbness: Code(s): R20.0 - Anesthesia of skin (3) Paresthesia: Code(s): R20.2 - Paresthesia of skin Plan Pt referred to podiatry. The back numbness can be from arthritis, advised patient to try physical therapy. Pt already referred to physical therapy. Hand numbness can be related to carpal tunnel, pt reports she had multiple surgeries for carpal tunnel. Advised patient to try wrist braces. Medications: Discontinued cholecalciferol (vitamin D3) Discontinued Reason: Patient Refused 25 mcg PO DAILY 30 tabs 11RF Coding Level of Care Code New Pt Level 4 (12811) Diagnoses Calcaneal spur of foot M77.30 Hand numbness R20.0 Paresthesia R20.2
[2023-06-23 14:59] VITALS: BP 134/66; PULSE 66; O2SAT 99; BMI 27.8
== END 2023-06-24 15:15 | disposition home or self-care (01) ==
PROVIDERS: PCP Internal Medicine; Visit Provider Nurse Practitioner Family
DX: M77.30 Calcaneal spur, unspecified foot (principal); R20.0 Anesthesia of skin; R20.2 Paresthesia of skin
CPT/HCPCS: 99204

== ENCOUNTER → 2023-06-23 14:53 | Outpatient (BNVA) | payer OTHER, SELFPAY | PROVIDERS: PCP Internal Medicine; Visit Provider Nurse Practitioner Family | DX: M77.30 Calcaneal spur, unspecified foot (principal); R20.0 Anesthesia of skin; R20.2 Paresthesia of skin | CPT/HCPCS: 99202 ==

== ENCOUNTER 2023-06-29 16:05 | Outpatient (AMB) | payer OTHER, SELFPAY ==
--- NOTE | 2023-06-29 16:17 | A.OFFPC_ITS ---
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 Accompanied by: Daughter Allergies griseofulvin [From Candie-PEG (ultramicrosize)] Allergy (Intermediate, Verified 06/29/23 16:37) Rash octopus Allergy (Intermediate, Verified 06/29/23 16:37) Hives pregabalin [From Lyrica] Allergy (Intermediate, Verified 06/29/23 16:37) LEethargy, dizziness celecoxib [From Celebrex] Adverse Reaction (Intermediate, Verified 06/29/23 16:37) Problems with Liver dicyclomine Adverse Reaction (Mild, Verified 06/29/23 16:37) stomach upset oxycodone [From Percocet] Adverse Reaction (Mild, Verified 06/29/23 16:37) Lethargy morphine Adverse Reaction (Verified 06/29/23 16:37) Unknown MANDARIN ORANGES Allergy (Severe, Uncoded 06/29/23 16:37) Lip Swelling, Hives PARMELEX Allergy (Intermediate, Uncoded 06/29/23 16:37) Problems with Liver Medication List - Last Reconciled 06/29/23 by Julia Oviedo MD acetaminophen 1,000 mg PO BID PRN ascorbic acid (vitamin C) 1 g PO BID aspirin 81 mg PO DAILY calcium carbonate 500 mg PO BID 30 days cholecalciferol (vitamin D3) 1,250 mcg PO QWEEK 30 days coenzyme Q10 (H2Q CoQ10) 200 mg PO DAILY [cpap As directed] fluocinonide 0.05% 0.05 appl topical BID PRN loratadine 10 mg PO DAILY 90 days magnesium oxide 800 mg PO DAILY metoclopramide HCl (Reglan) 5 mg PO QIDACHS tacrolimus 0.1% 0.1 appl topical DAILY vitamin B complex 1 tab PO DAILY Tobacco use date assessed: 06/29/23 Dental Screening Dental Screen Date: 06/29/23 Did you have a dental visit in the last 12 months?: Yes Did you have a dental problem in the last 6 months where you did not have access to dental care?: No Was dental information given to patient?: Patient has dentist HPI HPI Comments History of Present Illness Details This is a 62-year-old female with gastroparesis that complains of foot pain and has a spur of food, thoracic spine pain and left ear pain that has been bothering her for few days. Gastroparesis stable with metoclopramide and follow by Gastroenterology. Foot pain still present and will be referred to Podiatry. Thoracic spine pain still present and aggravated by activity. Will start physical therapy. Has otitis media left ear and will start amoxicillin. She does use hearing aids. Accompanied by daughter. [facility] Medical History (Updated 06/29/23 @ 16:44 by Julia Oviedo MD) Furuncle of buttock Abdominal pain Postmenopausal Muscle cramps Physical exam Fibromyalgia Gastroparesis Midline thoracic back pain Epigastric pain Allergic rhinitis Ingrown toenail of right foot Small bowel obstruction Dyspnea on exertion Elevated AST (SGOT) Nausea RUQ pain H. pylori infection Obesity (BMI 30-39.9) Neuropathy Hearing loss Tendonitis Hyperlipidemia Carpal tunnel syndrome Arthritis Fibromyalgia GRAYSON (obstructive sleep apnea) Iron deficiency anemia Normocytic anemia Surgical History History of esophagogastroduodenoscopy (EGD) Hx of colonoscopy History of endoscopy History of laparoscopic cholecystectomy History of varicose vein stripping Family history of lipoma History of left breast biopsy History of History of temporal artery biopsy History of carpal tunnel repair Family History Father Heart disease Diabetes Hypertension Mother Diabetes Hypertension Arthritis Fibromyalgia Osteoporosis Sister Breast cancer Social History Household Members: Family Caregiver staying overnight: No Housing: Apartment Alcohol intake: never Patient Tobacco Use Status: Never used Tobacco e-Cigarette/Vaping Use: Never Used Second Hand Smoke Exposure: No service: No 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al status: disabled Cognitive needs: No Hearing needs: Yes Vision needs: No Questionnaire PHQ-9 Over the last 2 weeks, how often have you been bothered by any of the following problems? 1. Little interest or pleasure in doing things: not at all 2. Feeling down, depressed, or hopeless: not at all 3. Trouble falling or staying asleep, or sleeping too much: not at all 4. Feeling tired or having little energy: not at all 5. Poor appetite or overeating: not at all 6. Feeling bad about yourself - or that you are a failure or have let yourself or your family down: not at all 7. Trouble concentrating on things, such as reading the newspaper or watching television: not at all 8. Moving or speaking so slowly that other people could have noticed. Or the opposite - being so fidgety or restless that you have been moving around a lot more than usual: not at all 9. Thoughts that you would be better off or of hurting yourself in some wa y: not at all Total score: 0 Depression Screening Interpretation: Negative Depression Screening Done: Yes 30641 - PHQ-9 Billing: Yes Source: Developed by Drs. Reynaldo Denson, Marcia Bennett, Lewis Sifuentes and colleagues, with an educational poonam from [employer]. Thrive Questionnaire Date Thrive assessed: 06/29/23 I am a: Patient What is your living situation today?: I have a steady place to live Within the past 12 months, did the food you bought not last and you didn't have the money to get more?: Never true Within the past 12 months, did you worry whether your food would run out before you got money to buy more?: Never true Do you have trouble paying for medicines?: No Do you have trouble getting transportation to medical appointments?: No Do you have trouble paying your heating and electricity bill?: No Do you have trouble taking care of your child, family member or friend?: No Do you have trouble with day-to-day activities such as bathing, preparing meals, shopping, managing finances, etc.?: No Are you currently unemployed and looking for a job?: No Are you interested in more education?: No Please select the resources that you would like help with: None AUDIT C Alcohol Use Questionnaire (AUDIT-C) 1. How often do you have a drink containing alcohol?: Never Total Score: 0 SUMMER-7 AMB Questionnaire SUMMER-7 Date SUMMER - 7 assessed: 06/29/23 Feeling nervous, anxious, or on edge: 0 = Not at all Not being able to stop or control worryin = Not at all Worrying too much about different things: 0 = Not at all Trouble relaxin = Not at all Being so restless that it is hard to sit still: 0 = Not at all Becoming easily annoyed or irritable: 0 = Not at all Feeling afraid as if something awful might happen: 0 = Not at all Total SUMMER-7 score (0-4 normal; 5-9 mild; 10-14 moderate; 15-21 severe): 0 Source: Developed by Drs. Reynaldo Denson, Marcia Bennett, Lewis Sifuentes and colleagues, with an educational poonam from [employer]. SUMMER-7 Assessment Billing SUMMER-7 Assessment Tool: SUMMER-7 Assessment 41677 Review of Systems Const All systems reviewed & are unremarkable except as noted in HPI and below Eyes Reports no additional complaints, Denies change in vision and Denies other visua l disturbances Card Denies chest pain at rest, Denies chest pain with activity, Denies edema, Denies irregular heart rhythm, Denies claudication, Denies dyspnea, Denies dyspnea on exertion, Denies orthopnea, Denies paroxysmal nocturnal dyspnea and Denies slow heart rate Resp Denies cough, Denies dyspnea and Denies dyspnea on exertion GI Denies abdominal pain, Denies change in bowel habits, Denies excessive flatus, Denies nausea and Denies vomiting Denies urinary incontinence, Denies urinary hesitancy and Denies urinary urgency Musc Denies abnormal gait, Denies atrophy, Denies deformity and Denies limited range of motion Skin/Breast Denies bleeding lesions, Denies changing lesions and Denies rash Neuro Denies abnormal gait, Denies behavioral changes and Denies lack of coordination Psych Denies behavioral changes Physical exam (Primary Care) Vital Signs: Last Vital Signs BP 110/70 06/29/23 16:20 BMI result Body Mass Index 27.3 Tobacco/Smoking Status: Tobacco use Status Tobacco use date assessed 06/29/23 06/29/23 16:25 Patient Tobacco Use Status Never used Tobacco 06/29/23 16:17 e-Cigarette/Vaping Use Never Used 06/29/23 16:17 PHQ-9: PHQ-9 Score PHQ-9: Total score 0 06/29/23 16:50 Depression Screening Interpretation: Negative Thrive Assessment: Date of Thrive Assessment Date Thrive assessed 06/29/23 06/29/23 16:25 Eyes General: appearance normal, both eyes and all related structures Eyelids: Yes eyelids normal Conjunctivae: conjunctivae normal Neck Neck: Yes normal visual inspection and Yes supple Resp Effort & Inspection: normal respiratory effort Auscultation: clear to auscultation bilaterally Cardio Jugular venous distension: no JVD Rate: regular rate Rhythm: regular rhythm Heart sounds: S1 normal heart sound present and S2 normal heart sound present Extrem General: Yes full ROM Office Procedures Flu Questionnaire Does the patient have a severe egg allergy?: No Immunizations flu vacc [id number] 6mos up(PF) 60 mcg(15 mcgx4)/0.5 mL IM syringe Performing Provider: Julia Oviedo MD [facility] Documented (not given) by: SAVANAH Delacruz on 06/29/23 16:17 Reason Not Given: Patient Refused Assessment and Plan Assessment & Plan (1) Calcaneal spur of foot: Code(s): M77.30 - Calcaneal spur, unspecified foot Plan: Referred to Podiatry. (2) Thoracic spine pain: Code(s): M54.6 - Pain in thoracic spine Plan: Start physical therapy. (3) Otitis media: Code(s): H66.90 - Otitis media, unspecified, unspecified ear Qualifiers: Otitis media type: serous Chronicity: acute Laterality: left Recurrence: non-recurrent Qualified Code(s): H65.02 - Acute serous otitis media, left ear Plan: Start amoxicillin. (4) Gastroparesis: Comment: 2019 GES - had been on reglan with good effect in the past, she stopped it on her own to try to simplify her pill burden which likely was not wu.aeb Abnormal study. There is moderately severe abnormal retention of solid food in the stomach at 4 hours. REPORT SIGNED IN OTHER VENDOR SYSTEM 08/23/2019 Code(s): K31.84 - Gastroparesis Plan: Continue metoclopramide. Orders: Orders PT Evaluation and Treatment Today M54.6 - Pain in thoracic spine NE nerve conduction velocity Today R20.0 - Anesthesia of skin Influenza [id number] Immunization Today Z23 - Encounter for immunization Referrals Podiatry Referral M77.30 - Calcaneal spur, unspecified foot Medications: New amoxicillin 500 mg PO Q12H 7 days 14 tabs 0RF Coding Level of Care Code Est Pt Level 4 (43582) Diagnoses Calcaneal spur of foot M77.30 Thoracic spine pain M54.6 Non-recurrent acute serous otitis media of left ear H65.02 Otitis media type: serous Chronicity: acute Laterality: left Recurrence: non-recurrent Gastroparesis K31.84 Additional Codes SUMMER-7 Assessment Billing - SUMMER-7 Assessment Tool: SUMMER-7 Assessment 41985 ([id number]) Time Spent (min) 24
[2023-06-29 16:20] VITALS: BP 110/70; BMI 27.3
== END 2023-06-29 16:51 | disposition home or self-care (01) ==
PROVIDERS: PCP Internal Medicine; Visit Provider Internal Medicine
DX: M77.30 Calcaneal spur, unspecified foot (principal); M54.6 Pain in thoracic spine; H65.02 Acute serous otitis media, left ear; K31.84 Gastroparesis
CPT/HCPCS: 99214

== ENCOUNTER 2023-07-08 14:50 | Outpatient (AMB) | payer OTHER, SELFPAY ==
--- NOTE | 2023-07-08 14:51 | MHC.OFFVIS ---
Intake Vital Signs 07/08/23 14:55 Height 5 ft 1 in Weight 145 lb BMI 27.4 BP 118/66 Blood Pressure Location Rt brachial Position Sitting Pulse 60 Intake Visit Reasons: 3 month follow up Intake Note: Patient presents to in office visit follow up of epigastric pain. CC: Patient reports she has been doing well and denies having any new GI symptoms today. Watershed Tender Required: Yes Watershed Tender Name: daughter Accompanied by: Daughter Allergies griseofulvin [From Candie-PEG (ultramicrosize)] Allergy (Intermediate, Verified 07/14/23 13:51) Rash octopus Allergy (Intermediate, Verified 07/14/23 13:51) Hives pregabalin [From Lyrica] Allergy (Intermediate, Verified 07/14/23 13:51) LEethargy, dizziness celecoxib [From Celebrex] Adverse Reaction (Intermediate, Verified 07/14/23 13:51) Problems with Liver dicyclomine Adverse Reaction (Mild, Verified 07/14/23 13:51) stomach upset oxycodone [From Percocet] Adverse Reaction (Mild, Verified 07/14/23 13:51) Lethargy morphine Adverse Reaction (Verified 07/14/23 13:51) Unknown MANDARIN ORANGES Allergy (Severe, Uncoded 07/14/23 13:51) Lip Swelling, Hives PARMELEX Allergy (Intermediate, Uncoded 07/14/23 13:51) Problems with Liver Medication List - Last Reconciled 07/08/23 by PRIMO John acetaminophen 1,000 mg PO BID PRN amoxicillin 500 mg PO Q12H 7 days ascorbic acid (vitamin C) 1 g PO BID aspirin 81 mg PO DAILY calcium carbonate 500 mg PO BID 30 days cholecalciferol (vitamin D3) 1,250 mcg PO QWEEK 30 days coenzyme Q10 (H2Q CoQ10) 200 mg PO DAILY [cpap As directed] esomeprazole magnesium 40 mg PO DAILY fluocinonide 0.05% 0.05 appl topical BID PRN loratadine 10 mg PO DAILY 90 days magnesium gluconate 1,000 mg PO BID metoclopramide HCl (Reglan) 5 mg PO QIDACHS tacrolimus 0.1% 0.1 appl topical DAILY vitamin B complex 1 tab PO DAILY HPI 3 month follow up HPI Details Assessment & Plan (1) Dysphagia: Comment: solids and liquids Code(s): R13.10 - Dysphagia, unspecified Plan: Ukrainian #Dtr translates per pt request She has restarted taking the reglan at 1 a day and this is helping her. She is happy with this and not having any more CP. So now she continues on this medication along with magnesium oxide. She asks how long an esophageal dilation will last, (she had her esophagus dilated 01/2023) and I explain that there is no set time for this, it is quite variable person to person. No dysphagia now. She also had evidence of disorganized chewing on a barium swallow so it is uncertain how much each of these contributes to her dysphagia over time. She is having a lot of body aches and just saw her PCP and they will be working this up further with EMG and other studies. She has OA and FMS. ROV 3 mos. (2) Gastroparesis: Comment: 2019 GES - had been on reglan with good effect in the past, she stopped it on her own to try to simplify her pill burden which likely was not wu.aeb Abnormal study. There is moderately severe abnormal retention of solid food in the stomach at 4 hours. REPORT SIGNED IN OTHER VENDOR SYSTEM 08/23/2019 Code(s): K31.84 - Gastroparesis (3) GERD (gastroesophageal reflux disease): Code(s): K21.9 - Gastro-esophageal reflux disease without esophagitis Qualifiers: Esophagitis presence: without esophagitis Qualified Code(s): K21.9 - Gastro-esophageal reflux disease without esophagitis (4) Chronic idiopathic constipation: Code(s): K59.04 - Chronic idiopathic constipation (5) Hepatic steatosis: Comment: Laboratory Tests baseline: 10/2020 AST/ALT 33 total bilirubin normal at 0.4, ferritin 191, alk-phos 120, hepatitis a B and C screens negative along with HIV screen, autoimmune work up negative. Baseline ultrasound with elastography 01/29/21 (F0) Current Laboratory Tests 07/22/2301/09/23 14:3814:38 Total Bilirubin 0.5 AST 22 ALT 19 Alkaline Phosphatase 86 Alpha Fetoprotein 3.5 US ABDOMEN 01/11/23 FINDINGS: PANCREAS: Normal. LIVER: The liver is normal in size. The liver contour is normal. There is diffuse increased liver echogenicity. No focal hepatic lesion. There is no intrahepatic biliary duct dilatation seen. GALLBLADDER: Surgically absent. COMMON BILE DUCT: Normal in caliber measuring 0.6 cm in diameter. RIGHT KIDNEY: Normal. No hydronephrosis. No renal calculi or focal parenchymal lesions. The kidney measures 9.5 cm in maximum dimension. FREE FLUID: None. US/US abdomen limited IMPRESSION: Diffuse mildly echogenic liver without focal lesion. ? Rest of the visualized pancreas, CBD and the right kidney appears unremarkable. ? Cholecystectomy. Code(s): K76.0 - Fatty (change of) liver, not elsewhere classified TODAYS VISIT Ukrainian #DTR translates She continues to do well on THE Reglan, she has even cut back on her generic Nexium as less GERD. Takes magnesium for the fibromyalgia symptoms. Swallowing has remained good after the dilation. She also continues on her generic Nexium for her GERD. ROV 6 mos. [facility] Medical History Furuncle of buttock Abdominal pain Postmenopausal Muscle cramps Physical exam Fibromyalgia Gastroparesis Midline thoracic back pain Epigastric pain Allergic rhinitis Ingrown toenail of right foot Small bowel obstruction Dyspnea on exertion Elevated AST (SGOT) Nausea RUQ pain H. pylori infection Obesity (BMI 30-39.9) Neuropathy Hearing loss Tendonitis Hyperlipidemia Carpal tunnel syndrome Arthritis Fibromyalgia GRAYSON (obstructive sleep apnea) Iron deficiency anemia Normocytic anemia Surgical History History of esophagogastroduodenoscopy (EGD) Hx of colonoscopy History of endoscopy History of laparoscopic cholecystectomy History of varicose vein stripping Family history of lipoma History of left breast biopsy History of History of temporal artery biopsy History of carpal tunnel repair Family History Father Heart disease Diabetes Hypertension Mother Diabetes Hypertension Arthritis Fibromyalgia Osteoporosis Sister Breast cancer Social History Household Members: Family Caregiver staying overnight: No Housing: Apartment Alcohol intake: never Patient Tobacco Use Status: Never used Tobacco e-Cigarette/Vaping Use: Never Used Second Hand Smoke Exposure: No service: No 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al status: disabled Cognitive needs: No Hearing needs: Yes Vision needs: No Review of Systems Const Denies fatigue, Denies fever(s), Denies night sweats, Denies poor appetite and Denies weight loss ENT Reports Normal hearing present, Denies dental pain, Denies dysphagia, Denies hearing loss, Denies mouth pain, Reports neck pain, Denies odynophagia, Denies throat swelling, Denies tongue swelling and Reports other (Dentition adequate) Card Reports no additional complaints Resp Reports no additional complaints GI Details: Denies abdominal pain, Denies melena, Denies bloating, Denies hematochezia, Reports constipation, Denies GI cramping, Denies dysphagia, Denies excessive flatus, Denies early satiety, Reports heartburn, Denies diarrhea, Denies nausea, Denies odynophagia, Denies vomiting and Denies hematemesis Musc Reports back pain, Reports myalgias and Reports neck pain Skin/Breast Denies pruritus, Denies lesions, Denies rash and Denies jaundice Neuro Reports Normal hearing present and Denies Abnormal speech present Endo Denies fatigue Aller/Immun Denies throat swelling and Denies tongue swelling Physical Exam Vital Signs: Last Vital Signs Pulse 60 07/08/23 14:55 BP 118/66 07/08/23 14:55 BMI result Body Mass Index 27.4 Const General: cooperative, no acute distress, well developed and well groomed Nutritional Appearance: average body habitus and well nourished Orientation/consciousness: oriented to person, oriented to place and oriented to time Limitations: language barrier HEENT Head: Yes normocephalic and Yes atraumatic Eyes General: appearance normal, both eyes and all related structures Pupils: Equal, round and reactive pupils present Neck Neck: Yes normal visual inspection and Yes no lymphadenopathy Thyroid: Thyroid normal Resp Effort & Inspection: normal respiratory effort and able to speak in complete sentences Auscultation: clear to auscultation bilaterally Cardio Rate: regular rate Rhythm: regular rhythm Heart sounds: Normal, physiologic split S2 sound present Peripheral pulses: radial pulses present and posterior tibial pulses present GI Inspection: No distended and No Abdominal panniculus present Palpation (GI): Soft to palpation, nontender, no guarding, not rigid and No hepatosplenomegaly present Percussion: Yes normal to percussion Auscultation: normal bowel sounds Rectal Exam - Female: deferred Skin General skin exam: no rashes or lesions noted, turgor normal, skin not dry, no jaundice, No spider nevi and no striae Rashes: no rashes Nails: normal Neuro General: oriented to person, oriented to place and oriented to time Cranial nerves: Yes Equal, round and reactive pupils present and Yes Normal hearing present Speech: No Abnormal speech present Extrem General: Yes normal to inspection, No clubbing, No cyanosis and No edema Psych Appearance: grossly normal and well kempt Mental Status: mental status grossly normal Speech and movement: Normal speech and movement present Affect: normal affect Attitude: cooperative Thought process: Normal thought process present and not confabulating Thought content: Normal thought content present Insight: Limited insight present (Psych) Judgement: Limited judgement present (Psych) Assessment & Plan Assessment & Plan (1) Gastroparesis: Comment: 2019 GES - had been on reglan with good effect in the past, she stopped it on her own to try to simplify her pill burden which likely was not wu.aeb Abnormal study. There is moderately severe abnormal retention of solid food in the stomach at 4 hours. REPORT SIGNED IN OTHER VENDOR SYSTEM 08/23/2019 Code(s): K31.84 - Gastroparesis (2) GERD (gastroesophageal reflux disease): Code(s): K21.9 - Gastro-esophageal reflux disease without esophagitis Qualifiers: Esophagitis presence: without esophagitis Qualified Code(s): K21.9 - Gastro-esophageal reflux disease without esophagitis (3) Chronic idiopathic constipation: Code(s): K59.04 - Chronic idiopathic constipation (4) Hepatic steatosis: Comment: Laboratory Tests baseline: 10/2020 AST/ALT total bilirubin normal at 0.4, ferritin 191, alk-phos 120, hepatitis a B and C screens negative along with HIV screen, autoimmune work up negative. Baseline ultrasound with elastography 01/29/21 (F0) Current Laboratory Tests 07/22/2301/09/23 14:3814:38 Total Bilirubin 0.5 AST 22 ALT 19 Alkaline Phosphatase 86 Alpha Fetoprotein 3.5 US ABDOMEN 01/11/23 FINDINGS: PANCREAS: Normal. LIVER: The liver is normal in size. The liver contour is normal. There is diffuse increased liver echogenicity. No focal hepatic lesion. There is no intrahepatic biliary duct dilatation seen. GALLBLADDER: Surgically absent. COMMON BILE DUCT: Normal in caliber measuring 0.6 cm in diameter. RIGHT KIDNEY: Normal. No hydronephrosis. No renal calculi or focal parenchymal lesions. The kidney measures 9.5 cm in maximum dimension. FREE FLUID: None. US/US abdomen limited IMPRESSION: Diffuse mildly echogenic liver without focal lesion. ? Rest of the visualized pancreas, CBD and the right kidney appears unremarkable. ? Cholecystectomy. Code(s): K76.0 - Fatty (change of) liver, not elsewhere classified Plan Ukrainian #DTR translates She continues to do well on THE Reglan, she has even cut back on her generic Nexium as less GERD. Takes magnesium for the fibromyalgia symptoms. Swallowing has remained good after the dilation. She also continues on her generic Nexium for her GERD. ROV 6 mos. Medications: New esomeprazole magnesium 40 mg PO DAILY 30 caps 6RF Refilled metoclopramide HCl (Reglan) 5 mg PO QIDACHS 120 tabs 6RF K31.84 - Gastroparesis Coding Level of Care Code Est Pt Level 3 (48753) Diagnoses Gastroparesis K31.84 Gastroesophageal reflux disease without esophagitis K21.9 Esophagitis presence: without esophagitis Chronic idiopathic constipation K59.04 Hepatic steatosis K76.0
[2023-07-08 14:55] VITALS: BP 118/66; PULSE 60; BMI 27.4
== END 2023-07-08 15:57 | disposition home or self-care (01) ==
PROVIDERS: PCP Internal Medicine; Visit Provider Nurse Practitioner
DX: K31.84 Gastroparesis (principal); K21.9 Gastro-esophageal reflux disease without esophagitis; K59.04 Chronic idiopathic constipation; K76.0 Fatty (change of) liver, not elsewhere classified
CPT/HCPCS: 99213

== ENCOUNTER → 2023-07-08 14:50 | Outpatient (BNVA) | payer OTHER, SELFPAY | PROVIDERS: PCP Internal Medicine; Visit Provider Nurse Practitioner | DX: K31.84 Gastroparesis (principal); K21.9 Gastro-esophageal reflux disease without esophagitis; K59.04 Chronic idiopathic constipation; K76.0 Fatty (change of) liver, not elsewhere classified; Z79.899 Other long term (current) drug therapy | CPT/HCPCS: 99212 ==

== ENCOUNTER 2023-07-14 13:29 | Outpatient (AMB) | payer OTHER, SELFPAY ==
[2023-07-14 13:35] VITALS: BP 102/60; PULSE 67; O2SAT 97; BMI 27.6
--- NOTE | 2023-07-14 13:35 | A.OFFVIS_ITS ---
Intake Vital Signs 07/14/23 13:35 Height 5 ft 1 in Weight 146 lb BMI 27.6 BP 102/60 Blood Pressure Location Lt brachial Position Sitting Pulse 67 Pulse Source Pulse Oximeter Pulse Oximetry (%) 97 Oxygen Delivery Method Room Air Intake Visit Reasons: grayson Intake Note: pt is here for follow up of GRAYSON, using cpap well, and it is going well. Materials And Corrosion Engineer Required: Yes Materials And Corrosion Engineer Name: Luci Allergies griseofulvin [From Candie-PEG (ultramicrosize)] Allergy (Intermediate, Verified 07/14/23 13:51) Rash octopus Allergy (Intermediate, Verified 07/14/23 13:51) Hives pregabalin [From Lyrica] Allergy (Intermediate, Verified 07/14/23 13:51) LEethargy, dizziness celecoxib [From Celebrex] Adverse Reaction (Intermediate, Verified 07/14/23 13:51) Problems with Liver dicyclomine Adverse Reaction (Mild, Verified 07/14/23 13:51) stomach upset oxycodone [From Percocet] Adverse Reaction (Mild, Verified 07/14/23 13:51) Lethargy morphine Adverse Reaction (Verified 07/14/23 13:51) Unknown MANDARIN ORANGES Allergy (Severe, Uncoded 07/14/23 13:51) Lip Swelling, Hives PARMELEX Allergy (Intermediate, Uncoded 07/14/23 13:51) Problems with Liver Medication List - Last Reconciled 07/14/23 by Sophia Zaidi MD acetaminophen 1,000 mg PO BID PRN ascorbic acid (vitamin C) 1 g PO BID aspirin 81 mg PO DAILY calcium carbonate 500 mg PO BID 30 days cholecalciferol (vitamin D3) 1,250 mcg PO QWEEK 30 days coenzyme Q10 (H2Q CoQ10) 200 mg PO DAILY [cpap As directed] esomeprazole magnesium 40 mg PO DAILY fluocinonide 0.05% 0.05 appl topical BID PRN loratadine 10 mg PO DAILY 90 days magnesium gluconate 1,000 mg PO BID metoclopramide HCl (Reglan) 5 mg PO QIDACHS tacrolimus 0.1% 0.1 appl topical DAILY vitamin B complex 1 tab PO DAILY Do you need a note to return to daycare/school/sports/work: No HPI grayson HPI Details ANITA IS 62 YEARS OLD VERY PLEASANT, JAPANESE-SPEAKING FEMALE. SHE IS A KNOWN CASE OF OBSTRUCTIVE SLEEP APNEA, . AND COMES AFTER 6 MONTHS FOR FOLLOW-UP SHE HAS BEEN USING CPAP WITH FULL FACE MASK REGULARLY EVERY NIGHT, AND SLEEPS WELL. SHE OFFERS NO COMPLAINTS RELATED TO THE MASK OR CPAP UNIT. BREATHING HAS BEEN GOOD. SHE HAS OCCASIONAL NASAL CONGESTION CONTROLLED WITH LORATADINE ARE FLONASE. [facility] Medical History Furuncle of buttock Abdominal pain Postmenopausal Muscle cramps Physical exam Fibromyalgia Gastroparesis Midline thoracic back pain Epigastric pain Allergic rhinitis Ingrown toenail of right foot Small bowel obstruction Dyspnea on exertion Elevated AST (SGOT) Nausea RUQ pain H. pylori infection Obesity (BMI 30-39.9) Neuropathy Hearing loss Tendonitis Hyperlipidemia Carpal tunnel syndrome Arthritis Fibromyalgia GRAYSON (obstructive sleep apnea) Iron deficiency anemia Normocytic anemia Surgical History History of esophagogastroduodenoscopy (EGD) Hx of colonoscopy History of endoscopy History of laparoscopic cholecystectomy History of varicose vein stripping Family history of lipoma History of left breast biopsy History of History of temporal artery biopsy History of carpal tunnel repair Family History Father Heart disease Diabetes Hypertension Mother Diabetes Hypertension Arthritis Fibromyalgia Osteoporosis Sister Breast cancer Social History Household Members: Family Caregiver staying overnight: No Housing: Apartment Alcohol intake: never Patient Tobacco Use Status: Never used Tobacco e-Cigarette/Vaping Use: Never Used Second Hand Smoke Exposure: No service: No 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al status: disabled Cognitive needs: No Hearing needs: Yes Vision needs: No Review of Systems Const All systems reviewed & are unremarkable except as noted in HPI and below Eyes Reports no additional complaints ENT Reports nasal congestion (Off and on) Card Denies chest pain, Denies irregular heart rhythm, Denies leg edema and Denies dyspnea on exertion Resp Denies cough, Denies dyspnea on exertion and Denies wheezing GI Reports heartburn (Symptoms of GERD controlled with meds), Reports diarrhea and Reports nausea (Of and on) Reports no additional complaints Musc Reports myalgias (DUE TO FIBROMYALGIA) Skin/Breast Reports system reviewed and no additional complaints, except as documented Neuro Reports no additional complaints Psych Reports no additional complaints Aller/Immun Denies wheezing Physical Exam Vital Signs: Last Vital Signs Pulse 67 07/14/23 13:35 BP 102/60 07/14/23 13:35 Pulse Ox 97 07/14/23 13:35 Oxygen Delivery Method Room Air 07/14/23 13:35 BMI result Body Mass Index 27.6 Const General: comfortable, no acute distress, alert and awake Orientation/consciousness: patient oriented x3 HEENT Other: SHE HAS MILD RETROGANTHIA OF THE LOWER JAW. Head: Yes normal to inspection General nose exam: No nasal polyps present and No nasal discharge present Face and sinus: Yes sinuses nontender Mouth: oropharynx normal Throat: Yes posterior oropharynx normal Eyes General: appearance normal, both eyes and all related structures Neck Neck: Yes normal visual inspection, Yes no lymphadenopathy, Yes trachea midline and Yes no JVD Thyroid: Thyroid normal Chest Chest palpation & inspection: normal inspection of the chest, normal palpation of entire chest wall and no tenderness Resp Effort & Inspection: normal respiratory effort Auscultation: clear to auscultation bilaterally, no rales and no wheezes Percussion: percussion normal Cardio Palpation: normal PMI Rate: regular rate Rhythm: regular rhythm Heart sounds: no gallops and no murmurs GI Palpation (GI): Soft to palpation, nontender, No hepatosplenomegaly present and no masses Auscultation: normal bowel sounds Back/Spine/Pelvis Thoracic/Lumbar Spine: thoracic and lumbar spine normal to inspection Skin General skin exam: no rashes or lesions noted Neuro General: patient oriented x3 and no focal motor deficits Cranial nerves: Yes CN's II-XII intact bilaterally Extrem General: Yes normal to inspection, Yes no clubbing, cyanosis or edema and Yes no calf tenderness Psych Appearance: grossly normal and well kempt Speech and movement: Normal speech and movement present Results Reviewed Results Reviewed: COMPLIANCE REPORT FOR THE LAST 30 NIGHTS REVIEWED. SHE HAS USED 30/30 NIGHTS. AVERAGE USE 7 HOURS 43 MINUTES. NO SIGNIFICANT AIR LEAK. RESIDUAL AHI 3.2 Assessment & Plan Assessment & Plan (1) GRAYSON (obstructive sleep apnea): Comment: SHE HAS MILD DEGREE OF OBSTRUCTIVE SLEEP APNEA, MOSTLY IN SUPINE POSITION. GRAYSON IN HER CASE IS MOSTLY DUE TO RETROGANTHIA OF THE LOWER JAW . USES CPAP, WITH F F MASK , AND PRESSURE OF 5-15 CMs . SHE HAS ALWAYS BEEN VERY COMPLIANT. Code(s): G47.33 - Obstructive sleep apnea (adult) (pediatric) Plan: COMMENDED FOR GOOD COMPLIANCE AND ENCOURAGED TO KEEP ON USING CPAP REGULARLY EVERY NIGHT . (2) Allergic rhinitis: Comment: MILD AND TREATED WITH LORATADINE 10 MG ONCE A DAY P.R.N. Code(s): J30.9 - Allergic rhinitis, unspecified Plan: OKAY TO TAKE LORATADINE 10 MG P.O. ONCE A DAY P.R.N. Coding Level of Care Code Est Pt Level 3 (56447) Diagnoses GRAYSON (obstructive sleep apnea) G47.33 Allergic rhinitis J30.9
== END 2023-07-14 13:55 | disposition home or self-care (01) ==
PROVIDERS: PCP Internal Medicine; Visit Provider Internal Medicine
DX: G47.33 Obstructive sleep apnea (adult) (pediatric) (principal); J30.9 Allergic rhinitis, unspecified
CPT/HCPCS: 99213

== ENCOUNTER → 2023-07-14 13:29 | Outpatient (BNVA) | payer OTHER, SELFPAY | PROVIDERS: PCP Internal Medicine; Visit Provider Internal Medicine | DX: G47.33 Obstructive sleep apnea (adult) (pediatric) (principal); J30.9 Allergic rhinitis, unspecified | CPT/HCPCS: 99212 ==

== ENCOUNTER 2023-07-29 12:35 | Outpatient (REF) | payer OTHER, SELFPAY ==
--- NOTE | 2023-07-29 13:04 | EMG_ITS ---
Chief complaint: Bilateral hand numbness Reason for referral: Evaluate for Carpal Tunnel Syndrome Referred by: Dr. Julia Oviedo Procedure done: Bilateral upper extremities NCS/EMG Precautions and/or limitations: Seen with special services director The limb temperature was monitored continuously and remained between 32-36 degrees C during the performance of the NCS. Nerve Conduction Studies Anti Sensory Summary Table ?Stim Site NR Onset (ms) Norm Onset (ms) Peak (ms) Norm Peak (ms) O-P Amp (?V) Norm O-P Amp Site1 Site2 Delta-0 (ms) Dist (cm) Les (m/s) Norm Les (m/s) Left Median Anti Sensory (2nd Digit) Wrist ? 2.6 3.5 <3.6 46.5 >10 Wrist 2nd Digit 2.6 14.0 54 Right Median Anti Sensory (2nd Digit) Wrist ? 2.7 3.7 <3.6 44.3 >10 Wrist 2nd Digit 2.7 14.0 52 Right Radial Anti Sensory (Thumb) Forearm ? 1.3 1.9 <3.1 33.2 Forearm Thumb 1.3 0.0 Left Ulnar Anti Sensory (5th Digit) Wrist ? 1.0 3.5 <3.7 16.4 >15.0 Wrist 5th Digit 1.0 14.0 140 Right Ulnar Anti Sensory (5th Digit) Wrist ? 0.5 3.3 <3.7 15.4 >15.0 Wrist 5th Digit 0.5 14.0 280 Motor Summary Table ?Stim Site NR Onset (ms) Norm Onset (ms) O-P Amp (mV) Norm O-P Amp iAmp (mV) Amp (1st) (%) Site1 Site2 Delta-0 (ms) Dist (cm) Les (m/s) Norm Les (m/s) Left Median Motor (Abd Poll Brev) Wrist ? 3.4 <3.9 11.1 >4.5 12.5 100.0 Elbow Wrist 3.3 18.0 55 >45 Elbow ? 6.7 11.2 12.7 100.9 Right Median Motor (Abd Poll Brev) Wrist ? 4.1 <3.9 7.4 >4.5 8.6 100.0 Elbow Wrist 3.3 19.0 58 >45 Elbow ? 7.4 7.0 8.3 94.6 Left Ulnar Motor (Abd Dig Minimi) Wrist ? 3.0 <3.0 9.1 >5 10.6 100.0 B Elbow Wrist 2.6 15.0 58 >45 B Elbow ? 5.6 9.7 11.7 106.6 A Elbow B Elbow 1.4 10.0 71 >45 A Elbow ? 7.0 9.3 11.3 102.2 Right Ulnar Motor (Abd Dig Minimi) Wrist ? 2.9 <3.0 9.4 >5 10.9 100.0 B Elbow Wrist 2.9 16.0 55 >45 B Elbow ? 5.8 8.8 10.2 93.6 A Elbow B Elbow 1.1 10.0 91 >45 A Elbow ? 6.9 8.7 10.2 92.6 EMG ?Side Muscle Nerve Root Ins Act Fibs Psw Amp Dur Poly Recrt Int Pat Comment Right 1stDorInt Ulnar C8-T1 Nml Nml Nml Nml Nml 0 Nml Complete Right FlexCarRad Median C6-7 Nml Nml Nml Nml Nml 0 Nml Complete Right Biceps Musculocut C5-6 Nml Nml Nml Nml Nml 0 Nml Complete Right Triceps Radial C6-7-8 Nml Nml Nml Nml Nml 0 Nml Complete Right Deltoid Axillary C5-6 Nml Nml Nml Nml Nml 0 Nml Complete Left 1stDorInt Ulnar C8-T1 Nml Nml Nml Nml Nml 0 Nml Complete Left FlexCarRad Median C6-7 Nml Nml Nml Nml Nml 0 Nml Complete Left Biceps Musculocut C5-6 Nml Nml Nml Nml Nml 0 Nml Complete Left Triceps Radial C6-7-8 Nml Nml Nml Nml Nml 0 Nml Complete Left Deltoid Axillary C5-6 Nml Nml Nml Nml Nml 0 Nml Complete FINDINGS: Right median motor nerve showed prolonged distal latency, normal amplitude and normal conduction velocity. Right median sensory nerve showed prolonged peak latency. All other nerves tested were within normal. Concentric needle EMG was performed in selected muscles of the bilateral upper extremities. Study did not reveal signs of electric abnormalities as shown in the table below. IMPRESSION: 1. This is an abnormal study. 2. There is electrodiagnostic evidence for right moderate-severe median neuropathy at the wrist, consistent with carpal tunnel syndrome. 3. There is no electrodiagnostic evidence for ulnar neuropathy, brachial plexopathy, or cervical radiculopathy. 4. There is no electrodiagnostic evidence for left median neuropathy. Thank you for your kind referral. Shaylee Nash MD, SANTY Board Certified, [place] [employer] and [employer] (ABPMR) Board Certified, [place] [employer] Electrodiagnostic [employer] (ABEM) CODIN [id number] x 2 MTDD
== END 2023-07-29 12:36 | disposition home or self-care (01) ==
LOC: HO.NEURO 12:35
PROVIDERS: PCP Internal Medicine; Visit Provider Internal Medicine
DX: R20.0 Anesthesia of skin (principal)
CPT/HCPCS: 95886; 95911

== ENCOUNTER → 2023-07-29 13:04 | Outpatient (BNV) | payer OTHER, SELFPAY | PROVIDERS: PCP Internal Medicine; Visit Provider Physical Medicine & Rehabilitation | DX: G56.03 Carpal tunnel syndrome, bilateral upper limbs (principal); R20.2 Paresthesia of skin | CPT/HCPCS: 95886; 95911 ==

== ENCOUNTER 2023-08-02 13:17 | Outpatient (REF) | payer OTHER, SELFPAY | END 2023-08-02 13:18 | disposition home or self-care (01) | LOC: HO.HAP 13:17 | PROVIDERS: Visit Provider Internal Medicine | DX: Z46.1 Encounter for fitting and adjustment of hearing aid (principal); H90.3 Sensorineural hearing loss, bilateral | CPT/HCPCS: V5266 ==

== ENCOUNTER 2023-08-05 14:34 | Outpatient (REF) | payer OTHER, SELFPAY | END 2023-08-05 14:35 | disposition home or self-care (01) | LOC: HO.HAP 14:34 | PROVIDERS: Visit Provider Internal Medicine | DX: Z46.1 Encounter for fitting and adjustment of hearing aid (principal); H90.3 Sensorineural hearing loss, bilateral | CPT/HCPCS: 99499 ==

== ENCOUNTER 2023-08-31 14:00 | Outpatient (RCR) | payer OTHER, SELFPAY ==
--- NOTE | 2023-08-03 16:05 | MHC.PT.EP ---
[facility] [place] Office [place] [facility] [place] [facility] [address] Debbie Porter [address] [phone] F: [phone] F: [phone] F: [phone] F: [phone] Physical Therapy Plan of Care Date of Evaluation: 08/03/23 Date of Surgery: Diagnosis: Dorsalgia (RL) Assessment: Raquel is a pleasant 62 yo female presenting to skilled physical therapy evaluation and treatment with c/o back pain. Pt reports sudden onset of central mid-back pain beginning when transferring out of bed in 05/2023. Pt received an unremarkable thoracic spine x-ray on 03/28/23. Pt reports px has worsened since onset with intermittent numbness throughout scapular region and occasional radicular s/s to B elbows (L>R). She has the most functional difficulty with sleeping, L trunk rotation activities, and prolonged sitting/standing. Upon evaluation, pt presents with pain, decreased lumbar ROM, and increased tissue restriction throughout periscapular musculature. Pt demonstrates postural deficits with increased weight shifted to L contributing to discomfort and muscular imbalances, which is exacerbated throughout mobility. Raquel would benefit from skilled PT services to address muscular imbalances, provide postural education/gait training, and improve functional mobility. Pt is recommended to attend PT 2x/week for 4 weeks. Frequency and Duration: The patient will be seen 2x/week for 4 weeks Short Term Goals: Pt will demonstrate independence with initial HEP through teach-back method, indicating proper compliance with PT Pt will report no radicular px traveling inferior to B shoulders for 1 consecutive week, indicating centralization of s/s Pt will improve postural awareness as noted through proper sitting/standing positioning throughout session without cues Plant Electrician Goals: Pt will achieve pain-free lumbar ROM WFL allowing for sleep without interruption Pt will improve functional mobility as noted through statistically significant increase in modified oswestry outcome measure Treatment Plan: Modalities to reduce pain, spasms and effusion. Manual therapy to restore motion and function. Therapeutic exercise to improve strength and flexibility. Neuromuscular re-education for posture and balance. Therapeutic activities to return to functional activities of daily living. Electronically signed by: Maryam Marvin PT, DPT Please sign and return to therapist. Thank you for your referral.
== END 2023-09-01 10:41 | disposition home or self-care (01) ==
LOC: HO.PT 14:00
PROVIDERS: PCP Internal Medicine; Visit Provider Internal Medicine
DX: M54.6 Pain in thoracic spine (principal)
CPT/HCPCS: 97110; 97112; 97162

== ENCOUNTER 2023-09-07 11:42 | Outpatient (AMB) | payer OTHER, SELFPAY ==
[2023-09-07 12:19] VITALS: BP 112/68; PULSE 75; TEMP 36.6; O2SAT 97; BMI 27.8
--- NOTE | 2023-09-07 12:19 | MHC.OFFWIV ---
Intake Vital Signs 09/07/23 12:19 Height 5 ft 1 in Weight 147 lb BMI 27.8 BP 112/68 Blood Pressure Location Lt brachial Position Sitting Pulse 75 Pulse Source Pulse Oximeter Temp 97.9 F Temp Source Temporal Artery Scan Pulse Oximetry (%) 97 Oxygen Delivery Method Room Air Intake Visit Reasons: EP severe left ear pain w/foul smell Intake Note: pt is here today for severe lft ear pain with foul smell started tuesday Patient Tobacco Use Status: Never used Tobacco Allergies griseofulvin [From Candie-PEG (ultramicrosize)] Allergy (Intermediate, Verified 09/07/23 12:23) Rash octopus Allergy (Intermediate, Verified 09/07/23 12:23) Hives pregabalin [From Lyrica] Allergy (Intermediate, Verified 09/07/23 12:23) LEethargy, dizziness celecoxib [From Celebrex] Adverse Reaction (Intermediate, Verified 09/07/23 12:23) Problems with Liver dicyclomine Adverse Reaction (Mild, Verified 09/07/23 12:23) stomach upset oxycodone [From Percocet] Adverse Reaction (Mild, Verified 09/07/23 12:23) Lethargy morphine Adverse Reaction (Verified 09/07/23 12:23) Unknown MANDARIN ORANGES Allergy (Severe, Uncoded 07/14/23 13:51) Lip Swelling, Hives PARMELEX Allergy (Intermediate, Uncoded 07/14/23 13:51) Problems with Liver Do you need a note to return to daycare/school/sports/work: No HPI HPI Comments History of Present Illness Details Daugter with her translating Pt says throbbing L ear pain with yellow foul smelling drainage Ongoing drainage minimal on Tuesday but worsening The more days that pass; onset pain Tuesday No fevers She has tried Ibuprofen for pain Pain level in L ear is 9/10 + congestion [facility] Medical History (Updated 08/01/23 @ 18:28 by Julia Oviedo MD) Furuncle of buttock Abdominal pain Postmenopausal Muscle cramps Physical exam Fibromyalgia Gastroparesis Midline thoracic back pain Epigastric pain Allergic rhinitis Ingrown toenail of right foot Small bowel obstruction Dyspnea on exertion Elevated AST (SGOT) Nausea RUQ pain H. pylori infection Obesity (BMI 30-39.9) Neuropathy Hearing loss Tendonitis Hyperlipidemia Carpal tunnel syndrome Arthritis Fibromyalgia GRAYSON (obstructive sleep apnea) Iron deficiency anemia Normocytic anemia Surgical History History of esophagogastroduodenoscopy (EGD) Hx of colonoscopy History of endoscopy History of laparoscopic cholecystectomy History of varicose vein stripping Family history of lipoma History of left breast biopsy History of History of temporal artery biopsy History of carpal tunnel repair Family History Father Heart disease Diabetes Hypertension Mother Diabetes Hypertension Arthritis Fibromyalgia Osteoporosis Sister Breast cancer Social History Household Members: Family Caregiver staying overnight: No Housing: Apartment Alcohol intake: never Patient Tobacco Use Status: Never used Tobacco e-Cigarette/Vaping Use: Never Used Second Hand Smoke Exposure: No service: No 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al status: disabled Cognitive needs: No Hearing needs: Yes Vision needs: No Review of Systems Const Denies chills and Denies fever(s) ENT Reports ear discharge, Reports otalgia, Reports nasal congestion and Denies sinus pressure Resp Denies cough Musc Denies myalgias Physical Exam Vital Signs: Last Vital Signs Temp 97.9 F 09/07/23 12:19 Pulse 75 09/07/23 12:19 BP 112/68 09/07/23 12:19 Pulse Ox 97 09/07/23 12:19 Oxygen Delivery Method Room Air 09/07/23 12:19 BMI result Body Mass Index 27.8 General: Non-toxic, NAD. Speaking full sentences. Skin: Warm dry throughout Eye: EOMI HENT: Airway patent. Uvula midline. No pharyngeal erythema or edema. No FISCAL SPECIALIST. R canal clear. L canal has minimal yellow discharge. No edema. No able to visualize if L TM has perforation but it has + erythema and bulge. R TM non-erythematous, non-bulging. No TM perforation or hemotympanum noted. MSK: Full ROM extremities. Neurology: A. No aphasia or facial droop. Gait without abnormality Psych: Good mood and affect Assessment & Plan Assessment & Plan (1) Otitis media: Code(s): H66.90 - Otitis media, unspecified, unspecified ear Qualifiers: Otitis media type: serous Chronicity: acute Laterality: left Recurrence: non-recurrent Qualified Code(s): H65.02 - Acute serous otitis media, left ear Plan: Patient seen and evaluated. + L OM with unknown perforation Seeing ENT in October Augmentin as prescribed Avoid water in ear Close follow up with PCP but if needed come back here. Discussed fevers, mastoid pain or redness surrounding ear, go to ED Patient and daughter gave verbal understanding and had no additional questions or concerns at time of discharge All questions answered Medications: New amoxicillin-pot clavulanate 875-125 mg 1 tab PO BID 14 tabs 0RF Coding Level of Care Code Est Pt Level 3 (12462) Diagnoses Non-recurrent acute serous otitis media of left ear H65.02 Otitis media type: serous Chronicity: acute Laterality: left Recurrence: non-recurrent
== END 2023-09-07 12:47 | disposition home or self-care (01) ==
PROVIDERS: PCP Internal Medicine; Visit Provider Physician Assistant
DX: H65.02 Acute serous otitis media, left ear (principal)
CPT/HCPCS: 99213

== ENCOUNTER 2023-09-07 13:35 | Outpatient (AMB) | payer OTHER, SELFPAY ==
[2023-09-07 14:08] VITALS: BMI 27.8
--- NOTE | 2023-09-07 14:08 | A.OFFVIS_ITS ---
Intake Vital Signs 09/07/23 14:08 Height 5 ft 1 in Weight 147 lb BMI 27.8 Intake Visit Reasons: Echocardiography Technologist- Carpal tunnel syndrome Bilateral Intake Note: Raquel 62 yr old right hand dominant female presents today for a new patient visit for Carpal tunnel syndrome on Bilateral hands. States right hand is worse currently. Symptoms are worse at night time and comes and goes thought out the day. Also mentioned her hands feel very cold and at time turn white and or at times bluish/purplish color. Hx of right hand CTR x3 1996, 1997 and last surgery she can recall, and left hand CTR 2x in 2003. EMG done. Denies locking of any finger or recent injury. Allergies griseofulvin [From Candie-PEG (ultramicrosize)] Allergy (Intermediate, Verified 09/07/23 14:10) Rash octopus Allergy (Intermediate, Verified 09/07/23 14:10) Hives pregabalin [From Lyrica] Allergy (Intermediate, Verified 09/07/23 14:10) LEethargy, dizziness celecoxib [From Celebrex] Adverse Reaction (Intermediate, Verified 09/07/23 14:10) Problems with Liver dicyclomine Adverse Reaction (Mild, Verified 09/07/23 14:10) stomach upset oxycodone [From Percocet] Adverse Reaction (Mild, Verified 09/07/23 14:10) Lethargy morphine Adverse Reaction (Verified 09/07/23 14:10) Unknown MANDARIN ORANGES Allergy (Severe, Uncoded 09/07/23 14:10) Lip Swelling, Hives PARMELEX Allergy (Intermediate, Uncoded 09/07/23 14:10) Problems with Liver HPI Echocardiography Technologist- Carpal tunnel syndrome Bilateral HPI Details Raquel is a 62 year old right hand dominant Stateless speaking woman who presents for a NCS review of her bilateral hand numbness. She is accompanied by her daughter today who acts as a elevator operator freight. She complains of numbness in the thumb, index, and middle fingers bilaterally, R>L. Symptoms intermittent, but daily, worse at night. Her numbness is more constant in her left hand, but worse at night. She denies any small finger numbness. Her sensation is somewhat better in her right thumb She has a hx of 3 prior right carpal tunnel releases, performed in 1996, 1997, and ~2003. She says following these surgeries her sensation did somewhat improve in her right hand She has a hx of 2 prior left carpal tunnel releases, both performed in 2003. She says following these surgeries her sensation did not improve in her left hand. She also complains of her hands feeling very cold at times, and she says at times her hands will turn pale, white, or purple/blue in appearance. This occurs sporadically, and not just when she is in the cold. She has a hx of iron-deficiency anemia, but denies any iron supplements at this time. She has a hx of Fibromyalgia & polyarthralgia. [facility] Medical History (Updated 09/07/23 @ 14:59 by Eran Aranda) Furuncle of buttock Abdominal pain Postmenopausal Muscle cramps Physical exam Fibromyalgia Gastroparesis Midline thoracic back pain Epigastric pain Allergic rhinitis Ingrown toenail of right foot Small bowel obstruction Dyspnea on exertion Elevated AST (SGOT) Nausea RUQ pain H. pylori infection Obesity (BMI 30-39.9) Neuropathy Hearing loss Tendonitis Hyperlipidemia Carpal tunnel syndrome Arthritis Fibromyalgia GRAYSON (obstructive sleep apnea) Iron deficiency anemia Normocytic anemia Surgical History History of esophagogastroduodenoscopy (EGD) Hx of colonoscopy History of endoscopy History of laparoscopic cholecystectomy History of varicose vein stripping Family history of lipoma History of left breast biopsy History of History of temporal artery biopsy History of carpal tunnel repair Family History Father Heart disease Diabetes Hypertension Mother Diabetes Hypertension Arthritis Fibromyalgia Osteoporosis Sister Breast cancer Social History (Updated 09/07/23 @ 14:32 by DMITRI Aden) Household Members: Family Caregiver staying overnight: No Housing: Apartment Alcohol intake: never Patient Tobacco Use Status: Never used Tobacco e-Cigarette/Vaping Use: Never Used Second Hand Smoke Exposure: No service: No 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al status: disabled 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: rt hand Cognitive needs: No Hearing needs: Yes Vision needs: No Review of Systems Const All systems reviewed & are unremarkable except as noted in HPI and below Physical Exam Vital Signs: BMI result Body Mass Index 27.8 Const General: cooperative, healthy appearing and no acute distress Orientation/consciousness: patient oriented x3 HEENT Head: Yes normocephalic and Yes atraumatic Eyes EOM: EOMs intact bilaterally Resp Effort & Inspection: normal respiratory effort and able to speak in complete sentences Cardio Jugular venous distension: no JVD Skin General skin exam: turgor normal Rashes: no rashes Neuro General: patient oriented x3 Extrem Other: Evaluation of Bilateral Upper Extremity: The patient is alert, oriented, and in no acute distress Neuro: Right hand with some persistent numbness in the thumb and index finger and more normal sensation to the middle ring and small fingers. Left hand she initially said that she had some numbness in her fingers and later said that they felt more normal. Normal sensation in the ulnar nerve distribution, bilaterally No thenar or intrinsic wasting Good APB muscle belly firing and good finger cross Healed carpal tunnel scars extending into the distal volar forearm. Vascular: Cap refill brisk ROM: She can make a fist and extend all her digits No locking or catching Skin: No lacerations or abrasions. General: No Ecchymosis. No Erythema or evidence of infection. Radiographs: IMPRESSION: 1. This is an abnormal study. 2. There is electrodiagnostic evidence for right moderate-severe median neur opathy at the wrist, consistent with carpal tunnel syndrome. 3. There is no electrodiagnostic evidence for ulnar neuropathy, brachial plexopathy, or cervical radiculopathy. 4. There is no electrodiagnostic evidence for left median neuropathy. Shaylee Nash MD, SANTY 07/29/23 Psych Appearance: grossly normal Affect: normal affect Attitude: cooperative Assessment & Plan Assessment & Plan (1) Carpal tunnel syndrome of right wrist: Code(s): G56.01 - Carpal tunnel syndrome, right upper limb (2) History of carpal tunnel surgery of right wrist: Code(s): Z98.890 - Other specified postprocedural states (3) History of carpal tunnel surgery of left wrist: Code(s): Z98.890 - Other specified postprocedural states (4) Polyarthralgia: Code(s): M25.50 - Pain in unspecified joint Plan Assessment & Plan: 1. Recurrent Right carpal tunnel syndrome, moderate-severe Symptoms intermittent, but daily, worse at night except for some persistent numbness in the thumb and index finger History of 3x carpal tunnel release in the past, in 1996, 1997, and ~2003 I educated her about this condition I discussed operative and non-operative treatment options I recommend surgery, but the patient was not interested today I explained the risks of delaying treatment and encouraged her to contact the clinic before her numbness becomes constant and her symptoms worsen. She expressed understanding The risks and benefits of operative treatment were discussed with the patient and the patient wishes to proceed with surgery. These risks include, but are not limited to risk of damage to blood vessels, nerves, tendons, infection, recurrence, incomplete relief of preoperative symptoms, persistent pain, possible need for further surgery and the risks associated with regional blocks and anesthesia. Again she is somewhat fearful about having surgery and wants to put it off and think about it. All questions were answered She will follow up prn 2. Left hand numbness In the median nerve distirbution Negative findings on NCS today She has a history of 2 left carpal tunnel releases done in 2003 This will be managed conservatively Scribed for Jasmyne Melendez MD by Eran Aranda, certified medical coding specialist, on 09/07/23 at 3:00 PM, EST. Coding Level of Care Code New Pt Level 4 (44598) Diagnoses Carpal tunnel syndrome of right wrist G56.01 History of carpal tunnel surgery of right wrist Z98.890 History of carpal tunnel surgery of left wrist Z98.890 Polyarthralgia M25.50
== END 2023-09-07 15:10 | disposition home or self-care (01) ==
PROVIDERS: PCP Internal Medicine; Visit Provider Orthopaedic Surgery
DX: G56.01 Carpal tunnel syndrome, right upper limb (principal)
CPT/HCPCS: 99204

== ENCOUNTER → 2023-09-07 13:35 | Outpatient (BNVA) | payer OTHER, SELFPAY | PROVIDERS: PCP Internal Medicine; Visit Provider Orthopaedic Surgery | DX: G56.01 Carpal tunnel syndrome, right upper limb (principal); R20.2 Paresthesia of skin; M79.7 Fibromyalgia; M25.50 Pain in unspecified joint; D50.9 Iron deficiency anemia, unspecified; Z98.890 Other specified postprocedural states | CPT/HCPCS: 99202 ==

== ENCOUNTER 2023-09-28 14:21 | Outpatient (AMB) | payer OTHER, SELFPAY ==
--- NOTE | 2023-09-28 14:25 | MHC.PC.OV ---
Vital Signs 09/28/23 14:27 Height 5 ft 1 in Weight 149 lb BMI 28.2 BP 108/62 Blood Pressure Location Lt brachial Position Sitting Intake Visit Reasons: Annual exam Intake Note: Patient here for an annual physical exam Manager Icu Required: No Accompanied by: Daughter Allergies griseofulvin [From Candie-PEG (ultramicrosize)] Allergy (Intermediate, Verified 09/28/23 14:56) Rash octopus Allergy (Intermediate, Verified 09/28/23 14:56) Hives pregabalin [From Lyrica] Allergy (Intermediate, Verified 09/28/23 14:56) LEethargy, dizziness celecoxib [From Celebrex] Adverse Reaction (Intermediate, Verified 09/28/23 14:56) Problems with Liver dicyclomine Adverse Reaction (Mild, Verified 09/28/23 14:56) stomach upset oxycodone [From Percocet] Adverse Reaction (Mild, Verified 09/28/23 14:56) Lethargy morphine Adverse Reaction (Verified 09/28/23 14:56) Unknown MANDARIN ORANGES Allergy (Severe, Uncoded 09/28/23 14:56) Lip Swelling, Hives PARMELEX Allergy (Intermediate, Uncoded 09/28/23 14:56) Problems with Liver Medication List - Last Reconciled 09/28/23 by Julia Oviedo MD acetaminophen 1,000 mg PO BID PRN alclometasone 0.05% topical ascorbic acid (vitamin C) 1 g PO BID aspirin 81 mg PO DAILY betamethasone dipropionate 0.05% topical calcium carbonate 500 mg PO BID 30 days cholecalciferol (vitamin D3) 1,250 mcg PO QWEEK 90 days coenzyme Q10 (H2Q CoQ10) 200 mg PO DAILY [cpap As directed] loratadine 10 mg PO DAILY 90 days magnesium gluconate 1,000 mg PO BID metoclopramide HCl (Reglan) 5 mg PO QIDACHS tacrolimus 0.1% 0.1 appl topical DAILY vitamin B complex 1 tab PO DAILY Tobacco use date assessed: 06/29/23 Dental Screening Dental Screen Date: 06/29/23 HPI HPI Comments History of Present Illness Details This is a 62 year old female that comes accompanied by daughter for her physical exam. Last mammogram was January 2023 and was normal. Last colonoscopy was 2018 and was normal. Last Pap smear was 2022 and was normal. No chest pain or shortness of breath. Has right foot swollen now and is painful. XR showed spurrs. [facility] Medical History (Updated 09/28/23 @ 15:08 by Julia Oviedo MD) Furuncle of buttock Abdominal pain Postmenopausal Muscle cramps Physical exam Fibromyalgia Gastroparesis Midline thoracic back pain Epigastric pain Allergic rhinitis Ingrown toenail of right foot Small bowel obstruction Dyspnea on exertion Elevated AST (SGOT) Nausea RUQ pain H. pylori infection Obesity (BMI 30-39.9) Neuropathy Hearing loss Tendonitis Hyperlipidemia Carpal tunnel syndrome Arthritis Fibromyalgia GRAYSON (obstructive sleep apnea) Iron deficiency anemia Normocytic anemia Surgical History History of esophagogastroduodenoscopy (EGD) Hx of colonoscopy History of endoscopy History of laparoscopic cholecystectomy History of varicose vein stripping Family history of lipoma History of left breast biopsy History of History of temporal artery biopsy History of carpal tunnel repair Family History Father Heart disease Diabetes Hypertension Mother Diabetes Hypertension Arthritis Fibromyalgia Osteoporosis Sister Breast cancer Social History Household Members: Family Caregiver staying overnight: No Housing: Apartment Alcohol intake: never Patient Tobacco Use Status: Never used Tobacco e-Cigarette/Vaping Use: Never Used Second Hand Smoke Exposure: No service: No 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al status: disabled 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: rt hand Cognitive needs: No Hearing needs: Yes Vision needs: No Questionnaire Thrive Questionnaire Date Thrive assessed: 06/29/23 SUMMER-7 AMB Questionnaire SUMMER-7 Date SUMMER - 7 assessed: 06/29/23 Source: Developed by Drs. Reynaldo Denson, Marcia Bennett, Lewis Sifuentes and colleagues, with an educational poonam from [employer]. Review of Systems Const All systems reviewed & are unremarkable except as noted in HPI and below Eyes Reports no additional complaints, Denies change in vision and Denies other visual disturbances Card Denies chest pain at rest, Denies chest pain with activity, Denies edema, Denies irregular heart rhythm, Denies claudication, Denies dyspnea, Denies dyspnea on exertion, Denies orthopnea, Denies paroxysmal nocturnal dyspnea and Denies slow heart rate Resp Denies cough, Denies dyspnea and Denies dyspnea on exertion GI Denies abdominal pain, Denies change in bowel habits, Denies excessive flatus, Denies nausea and Denies vomiting Denies urinary incontinence, Denies urinary hesitancy and Denies urinary urgency Physical exam (Primary Care) Vital Signs: Last Vital Signs BP 108/62 09/28/23 14:27 BMI result Body Mass Index 28.2 Tobacco/Smoking Status: Tobacco use Status Tobacco use date assessed 06/29/23 09/28/23 14:26 Patient Tobacco Use Status Never used Tobacco 09/28/23 14:26 e-Cigarette/Vaping Use Never Used 09/28/23 14:26 Thrive Assessment: Date of Thrive Assessment Date Thrive assessed 06/29/23 09/28/23 14:26 Const Orientation/consciousness: patient oriented x3 HENMT Head: Yes normal to inspection, Yes normocephalic and Yes atraumatic Ears: external ears normal Eyes General: appearance normal, both eyes and all related structures Eyelids: Yes eyelids normal Conjunctivae: conjunctivae normal Neck Neck: Yes normal visual inspection and Yes supple Resp Effort & Inspection: normal respiratory effort Auscultation: clear to auscultation bilaterally Cardio Jugular venous distension: no JVD Rate: regular rate Rhythm: regular rhythm Heart sounds: S1 normal heart sound present and S2 normal heart sound present GI Inspection: Yes normal to inspection Palpation (GI): Soft to palpation and nontender Auscultation: normal bowel sounds Skin General skin exam: no rashes or lesions noted Neuro General: patient oriented x3 and no focal motor deficits Extrem General: Yes full ROM Psych Appearance: grossly normal Assessment and Plan Assessment & Plan (1) Physical exam: Code(s): Z00.00 - Encounter for general adult medical examination without abnormal findings Plan: Repeat in a year. Orders: Orders Vitamin D 25-OH Total Today E55.9 - Vitamin D deficiency, unspecified Lipid Panel Today Z00.00 - Encounter for general adult medical examination without abnormal findings Comprehensive Plummer. Panel Fast Today Z00.00 - Encounter for general adult medical examination without abnormal findings Complete Blood Count Auto Diff Today D64.9 - Anemia, unspecified IRON PROFILE Today D64.9 - Anemia, unspecified Vitamin B12 and Folate Today D64.9 - Anemia, unspecified, E53.8 - Deficiency of other specified B group vitamins MR foot RT wo con Today M79.671 - Pain in right foot Referrals CORPORATE SALES TRAINER Referral N89.8 - Other specified noninflammatory disorders of vagina Medications: New fluconazole may repeat second dose 72 hrs after first dose if symptoms persist 150 mg PO Q3D 2 tabs 0RF Coding Level of Care Code Est Pt Prev Care 40-64y(39069) Diagnoses Physical exam Z00.00 Time Spent (min) 31
[2023-09-28 14:27] VITALS: BP 108/62; BMI 28.2
== END 2023-09-28 15:09 | disposition home or self-care (01) ==
PROVIDERS: Visit Provider Internal Medicine
DX: Z00.00 Encounter for general adult medical examination without abnormal findings (principal)
CPT/HCPCS: 99396

== ENCOUNTER 2023-09-29 10:33 | Outpatient (REF) | payer OTHER, SELFPAY ==
[2023-09-29 10:54] LABS: MANUAL DIFF FLAG NO
[2023-09-29 11:15] LABS: Basophils Absolute Auto 0.1 X10*3/uL (0.0-0.2); Eosinophils Absolute Auto 0.2 X10*3/uL (0.0-0.4); Eosinophils Percent Auto 2.9 % (0-4); Hematocrit 35.8 % (37.0-47.0); Hemoglobin 11.9 g/dl (12.0-16.0); Imm Gran Abs Auto 0.11 X10*3/uL (0.00-0.03); Imm Gran Pct Auto 2.1 % (0.0-0.4); Lymphocytes Absolute Auto 2.3 X10*3/uL (1.2-4.9); Lymphocytes Percent Auto 44.1 % (20-40); Mean Corpuscular HGB Conc 33.2 g/dl (31.0-35.0); Mean Corpuscular Hemoglobin 30.7 pg (27.0-33.0); Mean Corpuscular Volume 92.3 fL (80.0-98.0); Mean Platelet Volume 8.7 fL (9.4-12.3); Monocytes Absolute Auto 0.5 X10*3/uL (0.1-1.2); Monocytes Percent Auto 9.3 % (2-11); Neutrophils Absolute Auto 2.1 x10*3/uL (2.0-8.3); Neutrophils Percent Auto 40.6 % (45-73); Platelet Count 245 X10*3/uL (160-400); Red Blood Count 3.88 X10*6/uL (4.20-5.50); White Blood Count 5.2 X10*3/uL (4.8-10.8)
[2023-09-29 11:49] LABS: Alanine Aminotransferase 21 U/L (0-31); Albumin Level 4.2 g/dL (3.5-5.0); Alkaline Phosphatase 79 U/L (39-117); Anion Gap 8 (12-20); Aspartate Amino Transferase 21 U/L (5-31); Bilirubin Total 0.4 mg/dL (0.0-1.0); Blood Urea Nitrogen 13 mg/dL (9-16); Calcium 9.3 mg/dL (8.4-10.2); Carbon Dioxide 31 mmol/L (22-29); Chloride 107 mmol/L (96-108); Cholesterol 209 mg/dL (<200); Estimated Glomerular Filt Rate > 60; Glucose Fasting 96 mg/dL (60-99); HDL Cholesterol 52 mg/dL (>40); Iron 82 mcg/dL (30-160); LDL Cholesterol Calculated 129 mg/dL (<100); Percent Iron Saturation 34 % (15-50); Sodium 142 mmol/L (135-145); Total Iron Binding Capacity 239 mcg/dL (228-428); Total Protein 7.2 g/dL (6.5-8.0); Triglycerides 141 mg/dL (<150); Unsaturated Iron Binding 157 ug/dL
[2023-09-29 11:57] LABS: Vitamin D 25-OH Total 58.1 ng/mL (>30)
[2023-09-29 18:15] LABS: Folate 12.5 ng/mL (> or = 4.0); Vitamin B12 500 pg/mL (200-900)
== END 2023-09-29 10:34 | disposition home or self-care (01) ==
LOC: HO.LAB 10:33
PROVIDERS: PCP Internal Medicine; Visit Provider Internal Medicine
DX: Z00.00 Encounter for general adult medical examination without abnormal findings (principal); D64.9 Anemia, unspecified; E55.9 Vitamin D deficiency, unspecified; E53.8 Deficiency of other specified B group vitamins
CPT/HCPCS: 36415; 80053; 80061; 82306; 82607; 82746; 83540; 85025

== ENCOUNTER 2023-09-29 14:10 | Outpatient (REF) | payer OTHER, SELFPAY | END 2023-09-29 14:11 | disposition home or self-care (01) | LOC: HO.HAP 14:10 | PROVIDERS: Visit Provider Internal Medicine | DX: Z46.1 Encounter for fitting and adjustment of hearing aid (principal); H90.3 Sensorineural hearing loss, bilateral | CPT/HCPCS: V5266 ==

== ENCOUNTER 2023-10-07 11:04 | Outpatient (AMB) | payer OTHER, SELFPAY ==
--- NOTE | 2023-10-07 11:19 | MHC.OFFVIS ---
Vital Signs 10/07/23 11:20 Height 5 ft 1 in Weight 147 lb 11.355 oz BMI 27.9 BP 108/64 Intake Visit Reasons: vaginal pressure Intake Note: urine incontinence Articulation Officer Required: Yes Articulation Officer Language: Application Security Consultant Name: Neeru Pavon Information Interpreted: non-clinical & clinical Cartridge Maker: Cartridge Maker Present (Neeru PAVON) Accompanied by: Self / Same As Patient Allergies griseofulvin [From Candie-PEG (ultramicrosize)] Allergy (Intermediate, Verified 10/07/23 11:23) Rash octopus Allergy (Intermediate, Verified 10/07/23 11:23) Hives pregabalin [From Lyrica] Allergy (Intermediate, Verified 10/07/23 11:23) LEethargy, dizziness celecoxib [From Celebrex] Adverse Reaction (Intermediate, Verified 10/07/23 11:23) Problems with Liver dicyclomine Adverse Reaction (Mild, Verified 10/07/23 11:23) stomach upset oxycodone [From Percocet] Adverse Reaction (Mild, Verified 10/07/23 11:23) Lethargy morphine Adverse Reaction (Verified 10/07/23 11:23) Unknown MANDARIN ORANGES Allergy (Severe, Uncoded 10/07/23 11:23) Lip Swelling, Hives PARMELEX Allergy (Intermediate, Uncoded 10/07/23 11:23) Problems with Liver Post menopausal: Yes HPI Comments Details: Patient is here today with concerns of urinary incontinence and occasionally sees blood in the urine. Urine dip today shows trace blood. She reports light spotting vaginally a few weeks ago and has left lower pelvic pain for for the last few weeks. [facility] Medical History (Updated 10/07/23 @ 11:53 by Margie Pierce CNM) Hematuria Furuncle of buttock Abdominal pain Postmenopausal Muscle cramps Physical exam Fibromyalgia Gastroparesis Midline thoracic back pain Epigastric pain Allergic rhinitis Ingrown toenail of right foot Small bowel obstruction Dyspnea on exertion Elevated AST (SGOT) Nausea RUQ pain H. pylori infection Obesity (BMI 30-39.9) Neuropathy Hearing loss Tendonitis Hyperlipidemia Carpal tunnel syndrome Arthritis Fibromyalgia GRAYSON (obstructive sleep apnea) Iron deficiency anemia Normocytic anemia Surgical History History of esophagogastroduodenoscopy (EGD) Hx of colonoscopy History of endoscopy History of laparoscopic cholecystectomy History of varicose vein stripping Family history of lipoma History of left breast biopsy History of History of temporal artery biopsy History of carpal tunnel repair Family History Father Heart disease Diabetes Hypertension Mother Diabetes Hypertension Arthritis Fibromyalgia Osteoporosis Sister Breast cancer Social History Household Members: Family Caregiver staying overnight: No Housing: Apartment Alcohol intake: never Patient Tobacco Use Status: Never used Tobacco e-Cigarette/Vaping Use: Never Used Second Hand Smoke Exposure: No service: No 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al status: disabled 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: rt hand Cognitive needs: No Hearing needs: Yes Vision needs: No Review of Systems Const All systems reviewed & are unremarkable except as noted in HPI and below Physical Exam Vital Signs: Last Vital Signs BP 108/64 10/07/23 11:20 BMI result Body Mass Index 27.9 Const General: cooperative, healthy appearing and no acute distress Orientation/consciousness: patient oriented x3 GI Inspection: Yes normal to inspection Palpation (GI): Soft to palpation and Other GI palpation findings present (Nontender) Rectal Exam - Female: visual inspection normal General: Yes bladder normal to palpation External Female Exam: normal appearance of the urethra Speculum Exam - Vagina: normal appearance of the vagina, normal palpation, normal vaginal discharge and vagina atrophic Speculum Exam - Cervix: normal appearance of the cervix and normal palpation Bimanual exam- vagina & uterus: normal bimanual exam, normal palpation, uterine size normal, bladder normal to palpation, normal palpation, uterine shape normal and non-tender Bimanual Exam- Adnexa, other: normal adnexae and Other (Tenderness on the left side) Neuro General: patient oriented x3 Results AMB Urinalysis Dipstick UR Leukocytes Negative Last Edit by Neeru Urbina CMA on 10/07/23 11:38 UR Nitrite Negative Last Edit by Neeru Urbina CMA on 10/07/23 11:38 UR Urobilinogen Normal Last Edit by Neeru Urbina CMA on 10/07/23 11:38 UR Protein Negative Last Edit by Neeru Urbina CMA on 10/07/23 11:38 UR Ph 6.0 Last Edit by Neeru Urbina CMA on 10/07/23 11:38 UR Blood Trace Last Edit by Neeru Urbina CMA on 10/07/23 11:38 UR Specific Kodak 1.015 Last Edit by Neeru Urbina CMA on 10/07/23 11:38 UR Ketone Negative Last Edit by Neeru Urbina CMA on 10/07/23 11:38 UR Bilirubin Negative Last Edit by Neeru Urbina CMA on 10/07/23 11:38 UR Glucose Negative Last Edit by Neeru Urbina CMA on 10/07/23 11:38 Results Reviewed Results Reviewed: Laboratory Last Values Urine pH (Clinic) 6.0 10/07/23 11:36 Specific Kodak (Clinic) 1.015 10/07/23 11:36 Ur Protein (Clinic) Negative 10/07/23 11:36 Ur Ketones (Clinic) Negative 10/07/23 11:36 Urine Blood (Clinic) Trace 10/07/23 11:36 Urine Nitrite Negative 10/07/23 11:36 Urine Bilirubin (Clinic) Negative 10/07/23 11:36 Urobilinogen (Clinic) Normal 10/07/23 11:36 Leukocyte Esterase (Clinic) Negative 10/07/23 11:36 Urine Glucose (Clinic) Negative 10/07/23 11:36 Assessment & Plan Assessment & Plan (1) Incontinence: Code(s): R32 - Unspecified urinary incontinence (2) PMB (postmenopausal bleeding): Code(s): N95.0 - Postmenopausal bleeding (3) Pelvic pain: Code(s): R10.2 - Pelvic and perineal pain (4) Hematuria: Code(s): R31.9 - Hematuria, unspecified Category: Medical Qualifiers: Hematuria type: unspecified type Qualified Code(s): R31.9 - Hematuria, unspecified Plan Discussed plan of care including referral to Urology, endometrial biopsy, ultrasound of the pelvis, urine for microscopy and possible culture. Advised if any severe pain to go the emergency room soon as possible. All of her questions and concerns were addressed to the best of my ability. She is agreeable to the plan of care. Plan EMB at follow-up for ultrasound, discussed pre prep procedure Tylenol in to eat and drink before the procedure. This note is constructed using voice recognition software. While every effort has been made to ensure accuracy, tongue binder errors may have been included. Orders: Orders AMB Urinalysis Dipstick Today R31.29 - Other microscopic hematuria US pelvic and transvaginal Today N95.0 - Postmenopausal bleeding, R10.2 - Pelvic and perineal pain Referrals Urology Referral R31.9 - Hematuria, unspecified, R32 - Unspecified urinary incontinence Coding Level of Care Code Est Pt Level 4 (23519) Diagnoses Incontinence R32 PMB (postmenopausal bleeding) N95.0 Pelvic pain R10.2 Hematuria, unspecified type R31.9 Hematuria type: unspecified type
[2023-10-07 11:20] VITALS: BP 108/64; BMI 27.9
== END 2023-10-07 12:00 | disposition home or self-care (01) ==
PROVIDERS: PCP Internal Medicine; Visit Provider Advanced Practice Midwife
DX: R32 Unspecified urinary incontinence (principal); N95.0 Postmenopausal bleeding; R10.2 Pelvic and perineal pain; R31.9 Hematuria, unspecified; R31.29 Other microscopic hematuria
CPT/HCPCS: 99214

== ENCOUNTER 2023-10-07 11:04 | Outpatient (REF) | payer OTHER, SELFPAY | END 2023-10-07 11:05 | disposition home or self-care (01) | LOC: HO.LNP 11:04 | PROVIDERS: PCP Internal Medicine; Visit Provider Advanced Practice Midwife | DX: R32 Unspecified urinary incontinence (principal); R31.9 Hematuria, unspecified; N95.0 Postmenopausal bleeding; R10.2 Pelvic and perineal pain | CPT/HCPCS: 81002; 87086; 99212 ==

== ENCOUNTER 2023-10-13 13:15 | Outpatient (REF) | payer OTHER, SELFPAY ==
--- NOTE | ~2023-10-13 | US_ITS ---
EXAMINATION: US PELVIS CLINICAL INFORMATION: Postmenopausal bleeding, pelvic and perineal pain. COMPARISON: 12/27/2022, 09/13/2021 CT abdomen and pelvis. TECHNIQUE: Ultrasound of the pelvis is performed using both transabdominal and transvaginal transducers along with Doppler. Transvaginal imaging is performed due to inadequate visualization transabdominally. FINDINGS: The uterus is anteflexed and retroverted and measures 7.2 x 2.5 x 3.3 cm. Limited visualization particularly on transvaginal ultrasound images due to bowel gas. The uterus is heterogeneous. Endometrium difficult to visualize. Severely limited visualization due to bowel gas, body habitus and uterine positioning. Endometrium is difficult to visualize with confidence, possibly measuring 3 mm in thickness where visualized, but this measurement is of uncertain reliability. Gynecologic consultation, correlation with clinical exam and possible additional imaging with MRI recommended for this patient with postmenopausal bleeding. Right ovary measures 1.3 x 0.8 x 0.8 cm. Left ovary measures 1.5 x 0.6 x 0.8 cm. The bilateral ovaries were seen only on very limited transabdominal ultrasound images. US/US pelvic and transvaginal IMPRESSION: 1. Severely limited visualization due to bowel gas, body habitus and uterine positioning. Endometrium is difficult to visualize with confidence, possibly measuring 3 mm in thickness where visualized, but this measurement is of uncertain reliability. Gynecologic consultation, correlation with clinical exam and possible additional imaging with MRI recommended for this patient with postmenopausal bleeding. 2. Bilateral ovaries seen only on grossly unremarkable, limited transabdominal ultrasound images.
== END 2023-10-13 13:16 | disposition home or self-care (01) ==
LOC: HO.US 13:15
PROVIDERS: PCP Internal Medicine; Visit Provider Advanced Practice Midwife
DX: N95.0 Postmenopausal bleeding (principal); R10.2 Pelvic and perineal pain; R32 Unspecified urinary incontinence
CPT/HCPCS: 76830; 76856

== ENCOUNTER 2023-11-24 13:56 | Outpatient (REF) | payer OTHER, SELFPAY | END 2023-11-24 13:57 | disposition home or self-care (01) | LOC: HO.HAP 13:56 | PROVIDERS: Visit Provider Internal Medicine | DX: Z46.1 Encounter for fitting and adjustment of hearing aid (principal); H90.3 Sensorineural hearing loss, bilateral | CPT/HCPCS: V5266 ==

== ENCOUNTER 2023-11-24 14:43 | Outpatient (AMB) | payer OTHER, SELFPAY ==
[2023-11-24 15:18] VITALS: BP 110/68; BMI 28.9
--- NOTE | 2023-11-24 15:18 | MHC.OFFVIS ---
Vital Signs 11/24/23 15:18 Height 5 ft 1 in Weight 153 lb BMI 28.9 BP 110/68 Intake Visit Reasons: EMB/Ultra sound follow up Intake Note: Patient doesn't want the EMB Weight Control Engineer Required: Yes Weight Control Engineer Language: Arts And Crafts Instructor Name: Neeru Urbina Intermediate School Teacher: Intermediate School Teacher Present Allergies griseofulvin [From Candie-PEG (ultramicrosize)] Allergy (Intermediate, Verified 11/24/23 15:19) Rash octopus Allergy (Intermediate, Verified 11/24/23 15:19) Hives pregabalin [From Lyrica] Allergy (Intermediate, Verified 11/24/23 15:19) LEethargy, dizziness celecoxib [From Celebrex] Adverse Reaction (Intermediate, Verified 11/24/23 15:19) Problems with Liver dicyclomine Adverse Reaction (Mild, Verified 11/24/23 15:19) stomach upset oxycodone [From Percocet] Adverse Reaction (Mild, Verified 11/24/23 15:19) Lethargy morphine Adverse Reaction (Verified 11/24/23 15:19) Unknown MANDARIN ORANGES Allergy (Severe, Uncoded 11/24/23 15:19) Lip Swelling, Hives PARMELEX Allergy (Intermediate, Uncoded 11/24/23 15:19) Problems with Liver Is last menstrual period known: No Post menopausal: Yes Patient : No HPI Comments Details: Patient is here today for ultrasound findings and an endometrial biopsy procedure. She has a history of postmenopausal bleeding episode late amount of vaginal spotting. Initial assessment was unclear whether it was actual vaginal bleeding or hematuria. [facility] Medical History Hematuria Furuncle of buttock Abdominal pain Postmenopausal Muscle cramps Physical exam Fibromyalgia Gastroparesis Midline thoracic back pain Epigastric pain Allergic rhinitis Ingrown toenail of right foot Small bowel obstruction Dyspnea on exertion Elevated AST (SGOT) Nausea RUQ pain H. pylori infection Obesity (BMI 30-39.9) Neuropathy Hearing loss Tendonitis Hyperlipidemia Carpal tunnel syndrome Arthritis Fibromyalgia GRAYSON (obstructive sleep apnea) Iron deficiency anemia Normocytic anemia Surgical History History of esophagogastroduodenoscopy (EGD) Hx of colonoscopy History of endoscopy History of laparoscopic cholecystectomy History of varicose vein stripping Family history of lipoma History of left breast biopsy History of History of temporal artery biopsy History of carpal tunnel repair Family History Father Heart disease Diabetes Hypertension Mother Diabetes Hypertension Arthritis Fibromyalgia Osteoporosis Sister Breast cancer Social History Household Members: Family Caregiver staying overnight: No Housing: Apartment Alcohol intake: never Patient Tobacco Use Status: Never used Tobacco e-Cigarette/Vaping Use: Never Used Second Hand Smoke Exposure: No Patient : No service: No 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al status: disabled 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: rt hand Cognitive needs: No Hearing needs: Yes Vision needs: No Female Reproductive History Menstrual control method: none Review of Systems Const All systems reviewed & are unremarkable except as noted in HPI and below Endo Reports no additional complaints Physical Exam Vital Signs: Last Vital Signs BP 110/68 11/24/23 15:18 BMI result Body Mass Index 28.9 Const General: cooperative, healthy appearing and no acute distress Psych Appearance: well kempt Attitude: cooperative Thought process: Normal thought process present Results Reviewed Results Reviewed: [address] [address] Ultrasound Report Signed Patient: Raquel Antonio MR#: [id number] : 1960 Acct:[id number] Age/Sex: 62 / F ADM Date: 10/13/23 Loc: HO.US Attending Dr: Margie Pierce CNM Ordering Physician: Margie Pierce CNM Date of Service: 10/13/23 Procedure(s): US pelvic and transvaginal Accession Number(s): [id number] cc: Margie Pierce CNM; Julia Green MD~ EXAMINATION: US PELVIS CLINICAL INFORMATION: Postmenopausal bleeding, pelvic and perineal pain. COMPARISON: 12/27/2022, 09/13/2021 CT abdomen and pelvis. TECHNIQUE: Ultrasound of the pelvis is performed using both transabdominal and transvaginal transducers along with Doppler. Transvaginal imaging is performed due to inadequate visualization transabdominally. FINDINGS: The uterus is anteflexed and retroverted and measures 7.2 x 2.5 x 3.3 cm. Limited visualization particularly on transvaginal ultrasound images due to bowel gas. The uterus is heterogeneous. Endometrium difficult to visualize. Severely limited visualization due to bowel gas, body habitus and uterine positioning. Endometrium is difficult to visualize with confidence, possibly measuring 3 mm in thickness where visualized, but this measurement is of uncertain reliability. Gynecologic consultation, correlation with clinical exam and possible additional imaging with MRI recommended for this patient with postmenopausal bleeding. Right ovary measures 1.3 x 0.8 x 0.8 cm. Left ovary measures 1.5 x 0.6 x 0.8 cm. The bilateral ovaries were seen only on very limited transabdominal ultrasound images. US/US pelvic and transvaginal IMPRESSION: 1. Severely limited visualization due to bowel gas, body habitus and uterine positioning. Endometrium is difficult to visualize with confidence, possibly measuring 3 mm in thickness where visualized, but this measurement is of uncertain reliability. Gynecologic consultation, correlation with clinical exam and possible additional imaging with MRI recommended for this patient with postmenopausal bleeding. 2. Bilateral ovaries seen only on grossly unremarkable, limited transabdominal ultrasound images. Dictated By: Aleida Brown MD Signed By: <Electronically signed by Aleida Brown MD in OV> 10/19/23 1232 DD/ 1405 TD/TT: Package Dyeing Machine Operator: Assessment & Plan Assessment & Plan (1) Encounter to discuss test results: Code(s): Z71.2 - Person consulting for explanation of examination or test findings (2) PMB (postmenopausal bleeding): Code(s): N95.0 - Postmenopausal bleeding Plan Discussed: Ultrasound findings with the extreme limitations due to the gas and body habitus endometrial lining was 0.3 cm but limited. Radiology recommended an MRI for better visualization. Patient is agreeable to have an MRI, has had them in the past with no concerns. She refuses the endometrial biopsy today. I counseled her on the purpose of the biopsy is to rule out any uterine abnormalities including atypia, precancer, and cancer, not doing the biopsy could be delay in care and diagnoses and treatment for any of these abnormalities. She declines to have an endometrial biopsy procedure today. Other sources of bleeding could be from atrophic tissue, injury or trauma to tissue with a excessive wiping or itching. Plan MRI once approved by insurance will be scheduled, and then follow up office visit to discuss results she agrees to call if there is any bleeding. All of her questions and concerns were addressed to the best of my ability and shared decision making. She is agreeable to the plan of care. This note is constructed using voice recognition software. While every effort has been made to ensure accuracy, bottom cementer errors may have been included. Orders: Orders MR pelvis wo/w con Today N95.0 - Postmenopausal bleeding Coding Level of Care Code Est Pt Level 3 (48575) Diagnoses Encounter to discuss test results Z71.2 PMB (postmenopausal bleeding) N95.0
== END 2023-11-24 15:41 | disposition home or self-care (01) ==
LOC: HO.HWS 14:43
PROVIDERS: PCP Internal Medicine; Visit Provider Advanced Practice Midwife
DX: Z71.2 Person consulting for explanation of examination or test findings (principal); N95.0 Postmenopausal bleeding
CPT/HCPCS: 99213

== ENCOUNTER → 2023-11-24 14:43 | Outpatient (BNVA) | payer OTHER, SELFPAY | PROVIDERS: PCP Internal Medicine; Visit Provider Advanced Practice Midwife | DX: Z71.2 Person consulting for explanation of examination or test findings (principal); N95.0 Postmenopausal bleeding | CPT/HCPCS: 99212 ==

== ENCOUNTER 2023-12-02 14:04 | Outpatient (REF) | payer OTHER, SELFPAY ==
[2023-12-02 16:57] LABS: Urine Cytology See Pathology rpt
== END 2023-12-02 14:05 | disposition home or self-care (01) ==
LOC: HO.LNP 14:04
PROVIDERS: PCP Internal Medicine; Visit Provider Nurse Practitioner Family
DX: R31.9 Hematuria, unspecified (principal); R32 Unspecified urinary incontinence; N39.0 Urinary tract infection, site not specified
CPT/HCPCS: 51798; 81003; 88112; 99202

== ENCOUNTER 2023-12-02 14:04 | Outpatient (AMB) | payer OTHER, SELFPAY ==
--- NOTE | 2023-12-02 14:08 | MHC.OFFVIS ---
Intake Visit Reasons: incontinence, hematuria Intake Note: New Patient presents today for initial visit to establish treatment for : incontinence and hematuria Urology Medications: none Allergies to Antibiotic: none Blood Thinner: none PVR: 0ml's Automatic Punch Press Operator Required: Yes Accompanied by: Daughter Allergies griseofulvin [From Candie-PEG (ultramicrosize)] Allergy (Intermediate, Verified 12/02/23 15:32) Rash octopus Allergy (Intermediate, Verified 12/02/23 15:32) Hives pregabalin [From Lyrica] Allergy (Intermediate, Verified 12/02/23 15:32) LEethargy, dizziness celecoxib [From Celebrex] Adverse Reaction (Intermediate, Verified 12/02/23 15:32) Problems with Liver dicyclomine Adverse Reaction (Mild, Verified 12/02/23 15:32) stomach upset oxycodone [From Percocet] Adverse Reaction (Mild, Verified 12/02/23 15:32) Lethargy morphine Adverse Reaction (Verified 12/02/23 15:32) Unknown MANDARIN ORANGES Allergy (Severe, Uncoded 12/02/23 15:32) Lip Swelling, Hives PARMELEX Allergy (Intermediate, Uncoded 12/02/23 15:32) Problems with Liver Medication List - Last Reconciled 12/02/23 by VICKY Downs acetaminophen 1,000 mg PO BID PRN ascorbic acid (vitamin C) 1 g PO BID aspirin 81 mg PO DAILY betamethasone dipropionate 0.05% 0.05 appl topical DAILY calcium carbonate 500 mg PO BID 30 days cholecalciferol (vitamin D3) 1,250 mcg PO QWEEK 90 days coenzyme Q10 (H2Q CoQ10) 200 mg PO DAILY [cpap As directed] estradiol 0.01%(0.1mg/gram) pea sized amount to urethra 3 times a week 30 days loratadine 10 mg PO DAILY 90 days magnesium gluconate 1,000 mg PO BID omega 2-fgj-dom-fish oil 1,000 mg (120 mg-180 mg) (Fish Oil) 1 cap PO DAILY tacrolimus 0.1% 0.1 appl topical DAILY vitamin B complex 1 tab PO DAILY HPI Comments Details: Raquel is a very pleasant 63-year-old Arabic-speaking female patient of Dr. Roper who was accompanied by her granddaughter at today's office visit. She has a past medical history of hematuria, fibromyalgia, gastroparesis, epigastric pain, allergic rhinitis, small bowel obstruction, H pylori, neuropathy, hearing loss, tendinitis, hyperlipidemia, carpal tunnel syndrome, arthritis, obstructive sleep apnea, iron deficiency anemia, and normocytic anemia. She presents to the office today as a new patient for question of hematuria. In discussion with the patient today she reports previously following up with Dr. Blanc many years ago. She believes she was last seen in [address] Blanc. She discusses a longstanding history of microscopic and gross hematuria and undergoing multiple in office cystoscopies in the past. She reports approximately 1 month ago noting blood however is unsure if this was vaginally or coming from her bladder. She reports having followed up with her instructional support services director and recommendations were made for urology referral giving her longstanding history of microscopic hematuria. She reports episode of bleeding has since stopped. When asked she denies any previous history of nicotine dependence and or known workplace chemical exposure. In office urinalysis results reviewed with the patient today. Microscopic hematuria noted. She currently denies any bothersome urinary issues or concerns. She denies urinary urgency, urinary frequency, incontinence, nocturia, dysuria, foul smelling urine, changes to urinary stream, flank pain, fever, and or chills. She is happy with her current voiding parameters. Discussed potential causes of microscopic hematuria to include kidney stones, cancer in the urinary tract, kidney stone disease or inflammatory conditions of the urinary tract. Discussed at length further microscopic hematuria workup versus surveillance monitoring. Discussed risks and benefits of these interventions. She otherwise offers no other issues or concerns at this time. [facility] Medical History Hematuria Furuncle of buttock Abdominal pain Postmenopausal Muscle cramps Physical exam Fibromyalgia Gastroparesis Midline thoracic back pain Epigastric pain Allergic rhinitis Ingrown toenail of right foot Small bowel obstruction Dyspnea on exertion Elevated AST (SGOT) Nausea RUQ pain H. pylori infection Obesity (BMI 30-39.9) Neuropathy Hearing loss Tendonitis Hyperlipidemia Carpal tunnel syndrome Arthritis Fibromyalgia GRAYSON (obstructive sleep apnea) Iron deficiency anemia Normocytic anemia Surgical History History of esophagogastroduodenoscopy (EGD) Hx of colonoscopy History of endoscopy History of laparoscopic cholecystectomy History of varicose vein stripping Family history of lipoma History of left breast biopsy History of History of temporal artery biopsy History of carpal tunnel repair Family History Father Heart disease Diabetes Hypertension Mother Diabetes Hypertension Arthritis Fibromyalgia Osteoporosis Sister Breast cancer Social History Household Members: Family Caregiver staying overnight: No Housing: Apartment Alcohol intake: never Patient Tobacco Use Status: Never used Tobacco e-Cigarette/Vaping Use: Never Used Second Hand Smoke Exposure: No service: No 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al status: disabled 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: rt hand Cognitive needs: No Hearing needs: Yes Vision needs: No Review of Systems Const Reports no additional complaints Eyes Reports no additional complaints ENT Reports no additional complaints Card Reports as per HPI Resp Reports as per HPI GI Reports as per HPI Reports as per HPI Musc Reports as per HPI Neuro Reports no additional complaints Psych Reports as per HPI Endo Reports no additional complaints Sagar/Lymph Reports no additional complaints Aller/Immun Reports as per HPI Physical Exam Const General: cooperative, healthy appearing, comfortable, no acute distress, well developed, alert and awake Orientation/consciousness: patient oriented x3 Limitations: no limitations HEENT Head: Yes normal to inspection, Yes normocephalic and Yes atraumatic Ears: hearing grossly normal bilaterally Eyes General: appearance normal, both eyes and all related structures Neck Neck: Yes normal visual inspection and Yes trachea midline Chest Chest palpation & inspection: normal inspection of the chest Resp Effort & Inspection: normal respiratory effort and able to speak in complete sentences Cardio Rate: regular rate GI Inspection: Yes normal to inspection General: Yes no CVA tenderness Back/Spine/Pelvis Back: no CVA tenderness Skin General skin exam: no rashes or lesions noted Neuro General: patient oriented x3 Extrem General: Yes normal to inspection Psych Appearance: grossly normal and well kempt Mental Status: mental status grossly normal Speech and movement: Normal speech and movement present and Clear speech present Affect: normal affect Attitude: cooperative Thought process: Normal thought process present Thought content: Normal thought content present Insight: Fair insight present (Psych) Judgement: Fair judgement present (Psych) Office Procedures Post Void Residual Post Residual Void Post Void Residual (PVR): 0 [id number]-[id number] Void Residual by ultrasound Results AMB Urinalysis, Automated UA Leukoctes 0 Jonas/uL Last Edit by [facility] [employer] on 12/02/23 14:48 UA Nitrite Negative Last Edit by [facility] [employer] on 12/02/23 14:48 UA Urobilinogen 0.2 mg/dL Last Edit by [facility] [employer] on 12/02/23 14:48 UA Protein 0 mg/dL Last Edit by [employer] on 12/02/23 14:48 UA pH 6.0 Last Edit by [facility] [employer] on 12/02/23 14:48 UA Blood 10 Mandeep/uL Last Edit by [facility] [employer] on 12/02/23 14:48 UA Specific [place] 1.005 Last Edit by [employer] on 12/02/23 14:48 UA Ketone Negative Last Edit by [employer] on 12/02/23 14:48 UA Bilirubin 0 mg/dL Last Edit by [employer] on 12/02/23 14:48 UA Glucose 0 mg/dL Last Edit by [employer] on 12/02/23 14:48 Results Reviewed Results Reviewed: Laboratory Last Values Urine pH (Auto) 6.0 12/02/23 14:47 Specific [place] (Auto) 1.005 12/02/23 14:47 Urine Protein (Auto) 0 mg/dL 12/02/23 14:47 Glucose (UA)(Auto) 0 mg/dL 12/02/23 14:47 Urine Ketones (Auto) Negative 12/02/23 14:47 Urine Blood (Auto) 10 Mandeep/uL 12/02/23 14:47 Urine Nitrite (Auto) Negative 12/02/23 14:47 Urine Bilirubin (Auto) 0 mg/dL 12/02/23 14:47 Urine Urobilinogen (Auto) 0.2 mg/dL 12/02/23 14:47 Leukocyte Esterase (Auto) 0 Jonas/uL 12/02/23 14:47 Assessment & Plan Assessment & Plan (1) Hematuria: Code(s): R31.9 - Hematuria, unspecified Category: Medical Qualifiers: Hematuria type: unspecified type Qualified Code(s): R31.9 - Hematuria, unspecified Plan In office urinalysis results reviewed with the patient today; as noted above; will send for urine cytology. Start Estrace cream as discussed and prescribed. Discussed at length potential causes for potential hematuria patient had been experiencing however this is unclear if it was vaginally or from her urethra/bladder. Discussed microscopic hematuria versus surveillance monitoring; risks and benefits of these interventions were discussed. Patient currently denies any bothersome urinary issues or concerns. She reports to be happy with current voiding parameters. Follow-up in 3 months; or sooner with any issues, concerns, and or questions. Orders: Orders AMB Post Void Residual by ultrasound Today N39.0 - Urinary tract infection, site not specified AMB Urinalysis Automated Today Z13.9 - Encounter for screening, unspecified Urine Cytology Today R31.9 - Hematuria, unspecified Medications: New estradiol 0.01%(0.1mg/gram) pea sized amount to urethra 3 times a week 30 days 42.5 grams 0RF Patient Instructions: The patient had an opportunity to ask questions regarding the treatment plan. All questions were answered. Physical exam, labs, and imaging were discussed and reviewed in detail. As well as risks, benefits, and discussion of treatment choices. No major barriers to understanding were identified. The patient expressed understanding and agreement with the above treatment plan. The patient was made aware they should contact our office by phone for worsening of their current condition, the appearance of new symptoms, or with any questions or concerns. Compliance is encouraged with any medications and follow up testing that is ordered. It is a privilege to be allowed the opportunity to participate in? your urological care.? Again, if you have any questions or concerns If you have any questions or concerns please do not hesitate to contact me. The office is [phone]. This note is constructed using voice recognition software. While every effort has been made to ensure accuracy biological lab technician errors may have been included. Yours sincerely, VICKY Downs Coding Level of Care Code New Pt Level 4 (72042) Diagnoses Hematuria, unspecified type R31.9 Hematuria type: unspecified type CPT Codes Post Residual Void - PVR CPT Code: 51136-Hohe Void Residual by ultrasound ([id number])
== END 2023-12-02 14:58 | disposition home or self-care (01) ==
PROVIDERS: PCP Internal Medicine; Visit Provider Nurse Practitioner Family
DX: R31.9 Hematuria, unspecified (principal); Z13.9 Encounter for screening, unspecified
CPT/HCPCS: 99204

== ENCOUNTER 2024-01-06 14:47 | Outpatient (AMB) | payer OTHER, SELFPAY ==
--- NOTE | 2024-01-06 14:52 | MHC.OFFVIS ---
Vital Signs 01/06/24 14:53 Height 5 ft 1 in Weight 149 lb 14.629 oz BMI 28.3 BP 105/60 Blood Pressure Location Lt brachial Position Sitting Pulse 73 Intake Visit Reasons: 6 month follow up Intake Note: Raquel presents to in office visit today in 6 months follow up of CIC. CC: Patient reports doing well from GI standpoint and denies having any GI symptoms. Central Supply Manager Required: Yes Accompanied by: Daughter Allergies griseofulvin [From Candie-PEG (ultramicrosize)] Allergy (Intermediate, Verified 01/06/24 14:59) Rash octopus Allergy (Intermediate, Verified 01/06/24 14:59) Hives pregabalin [From Lyrica] Allergy (Intermediate, Verified 01/06/24 14:59) LEethargy, dizziness celecoxib [From Celebrex] Adverse Reaction (Intermediate, Verified 01/06/24 14:59) Problems with Liver dicyclomine Adverse Reaction (Mild, Verified 01/06/24 14:59) stomach upset oxycodone [From Percocet] Adverse Reaction (Mild, Verified 01/06/24 14:59) Lethargy morphine Adverse Reaction (Verified 01/06/24 14:59) Unknown MANDARIN ORANGES Allergy (Severe, Uncoded 12/02/23 15:32) Lip Swelling, Hives PARMELEX Allergy (Intermediate, Uncoded 12/02/23 15:32) Problems with Liver PFSH Medical History Hematuria Furuncle of buttock Abdominal pain Postmenopausal Muscle cramps Physical exam Fibromyalgia Gastroparesis Midline thoracic back pain Epigastric pain Allergic rhinitis Ingrown toenail of right foot Small bowel obstruction Dyspnea on exertion Elevated AST (SGOT) Nausea RUQ pain H. pylori infection Obesity (BMI 30-39.9) Neuropathy Hearing loss Tendonitis Hyperlipidemia Carpal tunnel syndrome Arthritis Fibromyalgia GRAYSON (obstructive sleep apnea) Iron deficiency anemia Normocytic anemia Surgical History History of esophagogastroduodenoscopy (EGD) Hx of colonoscopy History of endoscopy History of laparoscopic cholecystectomy History of varicose vein stripping Family history of lipoma History of left breast biopsy History of History of temporal artery biopsy History of carpal tunnel repair Family History Father Heart disease Diabetes Hypertension Mother Diabetes Hypertension Arthritis Fibromyalgia Osteoporosis Sister Breast cancer Social History Household Members: Family Caregiver staying overnight: No Housing: Apartment Alcohol intake: never Patient Tobacco Use Status: Never used Tobacco e-Cigarette/Vaping Use: Never Used Second Hand Smoke Exposure: No service: No 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al status: disabled 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
[2024-01-06 14:53] VITALS: BP 105/60; PULSE 73; BMI 28.3
--- NOTE | 2024-01-06 14:53 | MHC.OFFVIS ---
Vital Signs 01/06/24 14:53 Height 5 ft 1 in Weight 149 lb 14.629 oz BMI 28.3 BP 105/60 Blood Pressure Location Lt brachial Position Sitting Pulse 73 Intake Visit Reasons: 6 month follow up Allergies griseofulvin [From Candie-PEG (ultramicrosize)] Allergy (Intermediate, Verified 01/26/24 10:50) Rash octopus Allergy (Intermediate, Verified 01/26/24 10:50) Hives pregabalin [From Lyrica] Allergy (Intermediate, Verified 01/26/24 10:50) LEethargy, dizziness celecoxib [From Celebrex] Adverse Reaction (Intermediate, Verified 01/26/24 10:50) Problems with Liver dicyclomine Adverse Reaction (Mild, Verified 01/26/24 10:50) stomach upset oxycodone [From Percocet] Adverse Reaction (Mild, Verified 01/26/24 10:50) Lethargy morphine Adverse Reaction (Verified 01/26/24 10:50) Unknown MANDARIN ORANGES Allergy (Severe, Uncoded 01/26/24 10:50) Lip Swelling, Hives PARMELEX Allergy (Intermediate, Uncoded 01/26/24 10:50) Problems with Liver HPI HPI 6 month follow up: Details: Assessment & Plan (1) Gastroparesis: Comment: 2019 GES - had been on reglan with good effect in the past, she stopped it on her own to try to simplify her pill burden which likely was not wu.aeb Abnormal study. There is moderately severe abnormal retention of solid food in the stomach at 4 hours. REPORT SIGNED IN OTHER VENDOR SYSTEM 08/23/2019 Code(s): K31.84 - Gastroparesis (2) GERD (gastroesophageal reflux disease): Code(s): K21.9 - Gastro-esophageal reflux disease without esophagitis Qualifiers: Esophagitis presence: without esophagitis Qualified Code(s): K21.9 - Gastro-esophageal reflux disease without esophagitis (3) Chronic idiopathic constipation: Code(s): K59.04 - Chronic idiopathic constipation (4) Hepatic steatosis: Comment: Laboratory Tests baseline: 10/2020 AST/ALT 33/23 total bilirubin normal at 0.4, ferritin 191, alk-phos 120, hepatitis a B and C screens negative along with HIV screen, autoimmune work up negative. Baseline ultrasound with elastography 01/29/21 (F0) Current Laboratory Tests 07/22/2301/09/23 14:3814:38 Total Bilirubin 0.5 AST 22 ALT 19 Alkaline Phosphatase 86 Alpha Fetoprotein 3.5 US ABDOMEN 01/11/23 FINDINGS: PANCREAS: Normal. LIVER: The liver is normal in size. The liver contour is normal. There is diffuse increased liver echogenicity. No focal hepatic lesion. There is no intrahepatic biliary duct dilatation seen. GALLBLADDER: Surgically absent. COMMON BILE DUCT: Normal in caliber measuring 0.6 cm in diameter. RIGHT KIDNEY: Normal. No hydronephrosis. No renal calculi or focal parenchymal lesions. The kidney measures 9.5 cm in maximum dimension. FREE FLUID: None. US/US abdomen limited IMPRESSION: Diffuse mildly echogenic liver without focal lesion. ? Rest of the visualized pancreas, CBD and the right kidney appears unremarkable. ? Cholecystectomy. Code(s): K76.0 - Fatty (change of) liver, not elsewhere classified Plan Faroese #DTR translates She continues to do well on THE Reglan, she has even cut back on her generic Nexium as less GERD. Takes magnesium for the fibromyalgia symptoms. Swallowing has remained good after the dilation. She also continues on her generic Nexium for her GERD. ROV 6 mos. Medications: New esomeprazole magnesium 40 mg PO DAILY 30 caps 6RF Refilled metoclopramide HCl (Reglan) 5 mg PO QIDACHS 120 tabs 6RF K31.84 - Gastroparesis ]] TODAY'S VISIT BRAZILIAN #Trell Live She has been doing well and has not been taking the nexium or the reglan. Since we are not prescribing she will be a prn. [facility] Medical History Hematuria Furuncle of buttock Abdominal pain Postmenopausal Muscle cramps Physical exam Fibromyalgia Gastroparesis Midline thoracic back pain Epigastric pain Allergic rhinitis Ingrown toenail of right foot Small bowel obstruction Dyspnea on exertion Elevated AST (SGOT) Nausea RUQ pain H. pylori infection Obesity (BMI 30-39.9) Neuropathy Hearing loss Tendonitis Hyperlipidemia Carpal tunnel syndrome Arthritis Fibromyalgia GRAYSON (obstructive sleep apnea) Iron deficiency anemia Normocytic anemia Surgical History History of esophagogastroduodenoscopy (EGD) Hx of colonoscopy History of endoscopy History of laparoscopic cholecystectomy History of varicose vein stripping Family history of lipoma History of left breast biopsy History of History of temporal artery biopsy History of carpal tunnel repair Family History Father Heart disease Diabetes Hypertension Mother Diabetes Hypertension Arthritis Fibromyalgia Osteoporosis Sister Breast cancer Social History Household Members: Family Housing: Apartment Alcohol intake: never Patient Tobacco Use Status: Never used Tobacco e-Cigarette/Vaping Use: Never Used Second Hand Smoke Exposure: No service: No 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al status: disabled 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: rt hand Cognitive needs: No Hearing needs: Yes Vision needs: No Review of Systems Const Denies fatigue, Denies fever(s), Denies night sweats, Denies poor appetite and Denies weight loss ENT Reports Normal hearing present, Denies dental pain, Denies dysphagia, Denies hearing loss, Denies mouth pain, Denies odynophagia, Denies throat swelling, Denies tongue swelling and Reports other (Dentition adequate) Card Reports no additional complaints Resp Reports no additional complaints GI Details: Denies abdominal pain, Denies melena, Denies bloating, Denies hematochezia, Denies constipation, Denies GI cramping, Denies dysphagia, Denies excessive flatus, Denies early satiety, Denies heartburn, Denies diarrhea, Denies nausea, Denies odynophagia, Denies vomiting and Denies hematemesis Skin/Breast Denies pruritus, Denies lesions, Denies rash and Denies jaundice Neuro Reports Normal hearing present and Denies Abnormal speech present Endo Denies fatigue Aller/Immun Denies throat swelling and Denies tongue swelling Physical Exam Vital Signs: Last Vital Signs Pulse 73 01/06/24 14:53 BP 105/60 01/06/24 14:53 BMI result Body Mass Index 28.3 Const General: cooperative, no acute distress, well developed and well groomed Nutritional Appearance: average body habitus and well nourished Orientation/consciousness: oriented to person, oriented to place and oriented to time Limitations: language barrier HEENT Head: Yes normocephalic and Yes atraumatic Eyes General: appearance normal, both eyes and all related structures Pupils: Equal, round and reactive pupils present Neck Neck: Yes normal visual inspection and Yes no lymphadenopathy Thyroid: Thyroid normal Resp Effort & Inspection: normal respiratory effort and able to speak in complete sentences Auscultation: clear to auscultation bilaterally Cardio Rate: regular rate Rhythm: regular rhythm Heart sounds: Normal, physiologic split S2 sound present Peripheral pulses: radial pulses present and posterior tibial pulses present GI Inspection: No distended and No Abdominal panniculus present Palpation (GI): Soft to palpation, nontender, no guarding, not rigid and No hepatosplenomegaly present Percussion: Yes normal to percussion Auscultation: normal bowel sounds Rectal Exam - Female: deferred Skin General skin exam: no rashes or lesions noted, turgor normal, skin not dry, no jaundice, No spider nevi and no striae Rashes: no rashes Nails: normal Neuro General: oriented to person, oriented to place and oriented to time Cranial nerves: Yes Equal, round and reactive pupils present and Yes Normal hearing present Speech: No Abnormal speech present Extrem General: Yes normal to inspection, No clubbing, No cyanosis and No edema Psych Appearance: grossly normal and well kempt Mental Status: mental status grossly normal Speech and movement: Normal speech and movement present Affect: normal affect Attitude: cooperative Thought process: Normal thought process present and not confabulating Thought content: Normal thought content present Insight: Good insight present (Psych) Judgement: Good judgement present (Psych) Assessment & Plan Assessment & Plan (1) Gastroparesis: Comment: 2020 GES - had been on reglan with good effect in the past, she stopped it on her own to try to simplify her pill burden which likely was not wu.aeb Abnormal study. There is moderately severe abnormal retention of solid food in the stomach at 4 hours. REPORT SIGNED IN OTHER VENDOR SYSTEM 08/23/2019 Code(s): K31.84 - Gastroparesis Category: Medical (2) GERD (gastroesophageal reflux disease): Code(s): K21.9 - Gastro-esophageal reflux disease without esophagitis Category: Medical Qualifiers: Esophagitis presence: without esophagitis Qualified Code(s): K21.9 - Gastro-esophageal reflux disease without esophagitis (3) Chronic idiopathic constipation: Code(s): K59.04 - Chronic idiopathic constipation Category: Medical Plan BRAZILIAN #Trell Live She has been doing well and has not been taking the nexium or the reglan. Since we are not prescribing she will be a prn. Coding Level of Care Code Est Pt Level 3 (65953) Diagnoses Gastroparesis K31.84 Gastroesophageal reflux disease without esophagitis K21.9 Esophagitis presence: without esophagitis Chronic idiopathic constipation K59.04
== END 2024-01-06 15:29 | disposition home or self-care (01) ==
PROVIDERS: PCP Internal Medicine; Visit Provider Nurse Practitioner
DX: K31.84 Gastroparesis (principal); K21.9 Gastro-esophageal reflux disease without esophagitis; K59.04 Chronic idiopathic constipation
CPT/HCPCS: 99213

== ENCOUNTER → 2024-01-06 14:47 | Outpatient (BNVA) | payer OTHER, SELFPAY | PROVIDERS: PCP Internal Medicine; Visit Provider Nurse Practitioner | DX: K31.84 Gastroparesis (principal); K21.9 Gastro-esophageal reflux disease without esophagitis; K59.04 Chronic idiopathic constipation; K76.0 Fatty (change of) liver, not elsewhere classified | CPT/HCPCS: 99212 ==

== ENCOUNTER 2024-01-13 14:28 | Outpatient (REF) | payer OTHER, SELFPAY | END 2024-01-13 14:29 | disposition home or self-care (01) | LOC: HO.HAP 14:28 | PROVIDERS: Visit Provider Internal Medicine | DX: Z46.1 Encounter for fitting and adjustment of hearing aid (principal); H90.3 Sensorineural hearing loss, bilateral | CPT/HCPCS: V5266 ==

== ENCOUNTER 2024-01-18 13:25 | Outpatient (AMB) | payer OTHER, SELFPAY ==
[2024-01-18 13:40] VITALS: BP 120/70; PULSE 66; O2SAT 98; BMI 28.0
--- NOTE | 2024-01-18 13:40 | A.OFFVIS_ITS ---
Vital Signs 01/18/24 13:40 Height 5 ft 1 in Weight 148 lb BMI 28.0 BP 120/70 Blood Pressure Location Lt brachial Position Sitting Pulse 66 Pulse Source Pulse Oximeter Pulse Oximetry (%) 98 Oxygen Delivery Method Room Air Intake Visit Reasons: hill Intake Note: pt is here for follow up and states she is in a lot of pain, using cpap,no problems Pigment Pumper Required: No Allergies griseofulvin [From Candie-PEG (ultramicrosize)] Allergy (Intermediate, Verified 01/18/24 13:55) Rash octopus Allergy (Intermediate, Verified 01/18/24 13:55) Hives pregabalin [From Lyrica] Allergy (Intermediate, Verified 01/18/24 13:55) LEethargy, dizziness celecoxib [From Celebrex] Adverse Reaction (Intermediate, Verified 01/18/24 13:55) Problems with Liver dicyclomine Adverse Reaction (Mild, Verified 01/18/24 13:55) stomach upset oxycodone [From Percocet] Adverse Reaction (Mild, Verified 01/18/24 13:55) Lethargy morphine Adverse Reaction (Verified 01/18/24 13:55) Unknown MANDARIN ORANGES Allergy (Severe, Uncoded 01/18/24 13:55) Lip Swelling, Hives PARMELEX Allergy (Intermediate, Uncoded 01/18/24 13:55) Problems with Liver Medication List - Last Reconciled 01/18/24 by Sophia Zaidi MD acetaminophen 1,000 mg PO BID PRN ascorbic acid (vitamin C) 1 g PO BID aspirin 81 mg PO DAILY betamethasone dipropionate 0.05% 0.05 appl topical DAILY calcium carbonate 500 mg PO BID 30 days cholecalciferol (vitamin D3) 1,250 mcg PO QWEEK 90 days coenzyme Q10 (H2Q CoQ10) 200 mg PO DAILY [cpap As directed] estradiol 0.01%(0.1mg/gram) pea sized amount to urethra 3 times a week 30 days loratadine 10 mg PO DAILY 90 days magnesium gluconate 1,000 mg PO BID omega 8-xep-luz-fish oil 1,000 mg (120 mg-180 mg) (Fish Oil) 1 cap PO DAILY tacrolimus 0.1% 0.1 appl topical DAILY vitamin B complex 1 tab PO DAILY Do you need a note to return to daycare/school/sports/work: No HPI HPI hill: Details: 63 years old Yi-speaking very pleasant female has 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 She uses CPAP very. Regularly and sleeps well Normally she has no issues with the CPAP machine. However this time she is complaining of defective water chamber, which needs to be replaced Her main complaint is generalized aches and pains which relate to her fibromyalgia. [facility] Medical History Hematuria Furuncle of buttock Abdominal pain Postmenopausal Muscle cramps Physical exam Fibromyalgia Gastroparesis Midline thoracic back pain Epigastric pain Allergic rhinitis Ingrown toenail of right foot Small bowel obstruction Dyspnea on exertion Elevated AST (SGOT) Nausea RUQ pain H. pylori infection Obesity (BMI 30-39.9) Neuropathy Hearing loss Tendonitis Hyperlipidemia Carpal tunnel syndrome Arthritis Fibromyalgia HILL (obstructive sleep apnea) Iron deficiency anemia Normocytic anemia Surgical History History of esophagogastroduodenoscopy (EGD) Hx of colonoscopy History of endoscopy History of laparoscopic cholecystectomy History of varicose vein stripping Family history of lipoma History of left breast biopsy History of History of temporal artery biopsy History of carpal tunnel repair Family History Father Heart disease Diabetes Hypertension Mother Diabetes Hypertension Arthritis Fibromyalgia Osteoporosis Sister Breast cancer Social History Household Members: Family Caregiver staying overnight: No Housing: Apartment Alcohol intake: never Patient Tobacco Use Status: Never used Tobacco e-Cigarette/Vaping Use: Never Used Second Hand Smoke Exposure: No service: No 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al status: disabled 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: rt hand Cognitive needs: No Hearing needs: Yes Vision needs: No Review of Systems Const All systems reviewed & are unremarkable except as noted in HPI and below Eyes Reports no additional complaints ENT Reports nasal congestion (Off and on) Card Denies chest pain, Denies irregular heart rhythm, Denies leg edema and Denies dyspnea on exertion Resp Denies cough, Denies dyspnea on exertion and Denies wheezing GI Reports heartburn (Symptoms of GERD controlled with meds), Reports diarrhea and Reports nausea (Of and on) Reports no additional complaints Musc Reports myalgias (DUE TO FIBROMYALGIA) Skin/Breast Reports system reviewed and no additional complaints, except as documented Neuro Reports no additional complaints Psych Reports no additional complaints Aller/Immun Denies wheezing Physical Exam Vital Signs: Last Vital Signs Pulse 66 01/18/24 13:40 BP 120/70 01/18/24 13:40 Pulse Ox 98 01/18/24 13:40 Oxygen Delivery Method Room Air 01/18/24 13:40 BMI result Body Mass Index 28.0 Const General: comfortable, no acute distress, alert and awake Orientation/consciousness: patient oriented x3 HEENT Other: SHE HAS MILD RETROGANTHIA OF THE LOWER JAW. Head: Yes normal to inspection General nose exam: No nasal polyps present and No nasal discharge present Face and sinus: Yes sinuses nontender Mouth: oropharynx normal Throat: Yes posterior oropharynx normal Eyes General: appearance normal, both eyes and all related structures Neck Neck: Yes normal visual inspection, Yes no lymphadenopathy, Yes trachea midline and Yes no JVD Thyroid: Thyroid normal Chest Chest palpation & inspection: normal inspection of the chest, normal palpation of entire chest wall and no tenderness Resp Effort & Inspection: normal respiratory effort Auscultation: clear to auscultation bilaterally, no rales and no wheezes Percussion: percussion normal Cardio Palpation: normal PMI Rate: regular rate Rhythm: regular rhythm Heart sounds: no gallops and no murmurs GI Palpation (GI): Soft to palpation, nontender, No hepatosplenomegaly present and no masses Auscultation: normal bowel sounds Back/Spine/Pelvis Thoracic/Lumbar Spine: thoracic and lumbar spine normal to inspection Skin General skin exam: no rashes or lesions noted Neuro General: patient oriented x3 and no focal motor deficits Cranial nerves: Yes CN's II-XII intact bilaterally Extrem General: Yes normal to inspection, Yes no clubbing, cyanosis or edema and Yes no calf tenderness Psych Appearance: grossly normal and well kempt Speech and movement: Normal speech and movement present Results Reviewed Results Reviewed: Compliance report for the last 30 nights is reviewed. She has used 30/30 nights and average use it per night is 7 hours 34 minutes. Pressure used is mostly 12-13 cm There is no significant air leak Residual AHI 2.5 Assessment & Plan Assessment & Plan (1) HILL (obstructive sleep apnea): Comment: SHE HAS MILD DEGREE OF OBSTRUCTIVE SLEEP APNEA, MOSTLY IN SUPINE POSITION. HILL IN HER CASE IS MOSTLY DUE TO RETROGANTHIA OF THE LOWER JAW . USES CPAP, WITH F F MASK , AND PRESSURE OF 5-15 CMs . SHE HAS ALWAYS BEEN VERY COMPLIANT. Code(s): G47.33 - Obstructive sleep apnea (adult) (pediatric) Category: Medical Plan: Commended for good compliance . The DME provider is contacted and they will help to fix the issue of water chamber Coding Level of Care Code Est Pt Level 3 (71827) Diagnoses HILL (obstructive sleep apnea) G47.33
== END 2024-01-18 14:13 | disposition home or self-care (01) ==
PROVIDERS: PCP Internal Medicine; Visit Provider Internal Medicine
DX: G47.33 Obstructive sleep apnea (adult) (pediatric) (principal)
CPT/HCPCS: 99213

== ENCOUNTER → 2024-01-18 13:25 | Outpatient (BNVA) | payer OTHER, SELFPAY | PROVIDERS: PCP Internal Medicine; Visit Provider Internal Medicine | DX: G47.33 Obstructive sleep apnea (adult) (pediatric) (principal); M26.19 Other specified anomalies of jaw-cranial base relationship; Z99.89 Dependence on other enabling machines and devices | CPT/HCPCS: 99212 ==

== ENCOUNTER 2024-01-25 14:51 | Outpatient (REF) | payer OTHER, SELFPAY ==
--- NOTE | ~2024-01-25 | MM_ITS ---
EXAMINATION: MM SCREENING DIGITAL BREAST TOMOSYNTHESIS, BILATERAL CLINICAL INFORMATION: Screening. Asymptomatic. COMPARISON: Mammography: This study is compared with prior exams dating back to 2013 TECHNIQUE: Digital breast tomosynthesis is performed in both the craniocaudal and mediolateral oblique views along with computer-aided detection (CAD). Synthesized 2D images are generated from the tomosynthesis. Left exaggerated CC view also obtained. FINDINGS: There are scattered areas of fibroglandular density (ACR BI-RADS breast composition Category b). There are no significant masses, abnormal calcifications, or other abnormalities. Left biopsy clip again identified. MM/MM tomosynthesis screening BI IMPRESSION: No mammographic evidence of malignancy. ASSESSMENT: BI-RADS BI-RADS 2 - Benign Findings RECOMMENDATION: Routine annual mammography screening. 1 year F/U This examination should not preclude the clinical evaluation of a suspicious palpable abnormality. This patient's information was entered into a reminder system with a target due date for their next mammogram. Electronically signed by: Lucila Anne MD 02/22/2024 12:51 PM EDT
== END 2024-01-25 14:52 | disposition home or self-care (01) ==
LOC: HO.MAMMO 14:51
PROVIDERS: PCP Internal Medicine; Visit Provider Internal Medicine
DX: Z12.31 Encounter for screening mammogram for malignant neoplasm of breast (principal)
CPT/HCPCS: 77063; 77067

== ENCOUNTER 2024-01-26 10:30 | Outpatient (AMB) | payer OTHER, SELFPAY ==
[2024-01-26 10:38] VITALS: BP 118/70; BMI 28.0
--- NOTE | 2024-01-26 10:38 | MHC.PC.OV ---
Vital Signs 01/26/24 10:38 Height 5 ft 1 in Weight 148 lb BMI 28.0 BP 118/70 Blood Pressure Location Lt brachial Position Sitting Intake Visit Reasons: numbness and tightness hands and feet Pulpwood Contractor Required: No Accompanied by: Daughter Allergies griseofulvin [From Candie-PEG (ultramicrosize)] Allergy (Intermediate, Verified 01/26/24 10:50) Rash octopus Allergy (Intermediate, Verified 01/26/24 10:50) Hives pregabalin [From Lyrica] Allergy (Intermediate, Verified 01/26/24 10:50) LEethargy, dizziness celecoxib [From Celebrex] Adverse Reaction (Intermediate, Verified 01/26/24 10:50) Problems with Liver dicyclomine Adverse Reaction (Mild, Verified 01/26/24 10:50) stomach upset oxycodone [From Percocet] Adverse Reaction (Mild, Verified 01/26/24 10:50) Lethargy morphine Adverse Reaction (Verified 01/26/24 10:50) Unknown MANDARIN ORANGES Allergy (Severe, Uncoded 01/26/24 10:50) Lip Swelling, Hives PARMELEX Allergy (Intermediate, Uncoded 01/26/24 10:50) Problems with Liver Medication List - Last Reconciled 01/26/24 by Julia Oviedo MD acetaminophen 1,000 mg PO BID PRN ascorbic acid (vitamin C) 1 g PO BID aspirin 81 mg PO DAILY betamethasone dipropionate 0.05% 0.05 appl topical DAILY calcium carbonate 500 mg PO BID 30 days cholecalciferol (vitamin D3) 1,250 mcg PO QWEEK 90 days coenzyme Q10 (H2Q CoQ10) 200 mg PO DAILY [cpap As directed] estradiol 0.01%(0.1mg/gram) pea sized amount to urethra 3 times a week 30 days loratadine 10 mg PO DAILY 90 days magnesium gluconate 1,000 mg PO BID omega 1-avw-kau-fish oil 1,000 mg (120 mg-180 mg) (Fish Oil) 1 cap PO DAILY tacrolimus 0.1% 0.1 appl topical DAILY Tobacco use date assessed: 06/29/23 Fall risk assessment: No Falls in past year Last assessed Fall Risk: 01/26/24 Dental Screening Dental Screen Date: 01/26/24 Did you have a dental visit in the last 12 months?: Yes Did you have a dental problem in the last 6 months where you did not have access to dental care?: No Was dental information given to patient?: Patient has dentist HPI HPI Comments History of Present Illness Details This is a 63-year-old female with right carpal tunnel that comes today accompanied by daughter complaining of some bilateral leg pain that has been chronic associated with numbness and toes being cold. She does have multiple varicose veins and will be referred to vascular surgery. For her right carpal tunnel she saw ortho which recommended surgery but she declined. I advised to use wrist brace at night. No chest pain or shortness on breath. [facility] Medical History (Updated 01/26/24 @ 10:57 by Julia Oviedo MD) Hematuria Furuncle of buttock Abdominal pain Postmenopausal Muscle cramps Physical exam Fibromyalgia Gastroparesis Midline thoracic back pain Epigastric pain Allergic rhinitis Ingrown toenail of right foot Small bowel obstruction Dyspnea on exertion Elevated AST (SGOT) Nausea RUQ pain H. pylori infection Obesity (BMI 30-39.9) Neuropathy Hearing loss Tendonitis Hyperlipidemia Carpal tunnel syndrome Arthritis Fibromyalgia GRAYSON (obstructive sleep apnea) Iron deficiency anemia Normocytic anemia Surgical History History of esophagogastroduodenoscopy (EGD) Hx of colonoscopy History of endoscopy History of laparoscopic cholecystectomy History of varicose vein stripping Family history of lipoma History of left breast biopsy History of History of temporal artery biopsy History of carpal tunnel repair Family History Father Heart disease Diabetes Hypertension Mother Diabetes Hypertension Arthritis Fibromyalgia Osteoporosis Sister Breast cancer Social History Household Members: Family Housing: Apartment Alcohol intake: never Patient Tobacco Use Status: Never used Tobacco e-Cigarette/Vaping Use: Never Used Second Hand Smoke Exposure: No service: No 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al status: disabled 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: rt hand Cognitive needs: No Hearing needs: Yes Vision needs: No Questionnaire Thrive Questionnaire Date Thrive assessed: 06/29/23 SUMMER-7 AMB Questionnaire SUMMER-7 Date SUMMER - 7 assessed: 06/29/23 Source: Developed by Drs. Reynaldo Denson, Marcia Bennett, Lewis Sifuentes and colleagues, with an educational poonam from [employer]. Review of Systems Const All systems reviewed & are unremarkable except as noted in HPI and below Card Denies chest pain at rest, Denies chest pain with activity, Denies edema, Denies irregular heart rhythm, Denies claudication, Denies dyspnea, Denies dyspnea on exertion, Denies orthopnea, Denies paroxysmal nocturnal dyspnea and Denies slow heart rate Resp Denies cough, Denies dyspnea and Denies dyspnea on exertion GI Denies abdominal pain, Denies change in bowel habits, Denies excessive flatus, Denies nausea and Denies vomiting Denies urinary incontinence, Denies urinary hesitancy and Denies urinary urgency Physical exam (Primary Care) Vital Signs: Last Vital Signs BP 118/70 01/26/24 10:38 BMI result Body Mass Index 28.0 Tobacco/Smoking Status: Tobacco use Status Tobacco use date assessed 06/29/23 01/26/24 10:42 Patient Tobacco Use Status Never used Tobacco 01/26/24 10:42 e-Cigarette/Vaping Use Never Used 01/26/24 10:42 Thrive Assessment: Date of Thrive Assessment Date Thrive assessed 06/29/23 01/26/24 10:42 Resp Effort & Inspection: normal respiratory effort Auscultation: clear to auscultation bilaterally Cardio Jugular venous distension: no JVD Rate: regular rate Rhythm: regular rhythm Heart sounds: S1 normal heart sound present and S2 normal heart sound present Extrem General: Yes full ROM Assessment and Plan Assessment & Plan (1) Venous (peripheral) insufficiency: Code(s): I87.2 - Venous insufficiency (chronic) (peripheral) Plan: Referred to vascular surgery. (2) Carpal tunnel syndrome of right wrist: Code(s): G56.01 - Carpal tunnel syndrome, right upper limb Plan: Follow-up with ortho as needed. Orders: Orders Vitamin D 25-OH Total Today E55.9 - Vitamin D deficiency, unspecified Vitamin B12 and Folate Today E53.8 - Deficiency of other specified B group vitamins Referrals Vascular Surgery Referral I87.2 - Venous insufficiency (chronic) (peripheral) Coding Level of Care Code Est Pt Level 3 (10033) Complex EM visit Add On G2211 Diagnoses Venous (peripheral) insufficiency I87.2 Carpal tunnel syndrome of right wrist G56.01 Time Spent (min) 19
== END 2024-01-26 11:02 | disposition home or self-care (01) ==
PROVIDERS: PCP Internal Medicine; Visit Provider Internal Medicine
DX: I87.2 Venous insufficiency (chronic) (peripheral) (principal); G56.01 Carpal tunnel syndrome, right upper limb
CPT/HCPCS: 99213; G2211

== ENCOUNTER 2024-01-26 11:08 | Outpatient (REF) | payer OTHER, SELFPAY ==
[2024-01-26 12:37] LABS: Vitamin D 25-OH Total 70.9 ng/mL (>30)
[2024-01-26 12:45] LABS: Vitamin B12 548 pg/mL (200-900)
== END 2024-01-26 11:09 | disposition home or self-care (01) ==
LOC: HO.LAB 11:08
PROVIDERS: PCP Internal Medicine; Visit Provider Internal Medicine
DX: E55.9 Vitamin D deficiency, unspecified (principal); E53.8 Deficiency of other specified B group vitamins
CPT/HCPCS: 36415; 82306; 82607; 82746

== ENCOUNTER 2024-02-01 15:00 | Outpatient (RCR) | payer OTHER, SELFPAY | END 2024-02-01 16:00 | disposition home or self-care (01) | LOC: HO.PT 15:00 | PROVIDERS: PCP Internal Medicine; Visit Provider Podiatrist Foot & Ankle Surgery | DX: M76.61 Achilles tendinitis, right leg (principal) | CPT/HCPCS: 97110; 97140; 97162 ==

== ENCOUNTER 2024-02-29 12:38 | Outpatient (REF) | payer OTHER, SELFPAY | END 2024-02-29 12:39 | disposition home or self-care (01) | LOC: HO.HAP 12:38 | PROVIDERS: Visit Provider Internal Medicine | DX: Z46.1 Encounter for fitting and adjustment of hearing aid (principal); H90.3 Sensorineural hearing loss, bilateral | CPT/HCPCS: V5266 ==

== ENCOUNTER 2024-03-06 15:42 | Outpatient (AMB) | payer OTHER, SELFPAY ==
--- NOTE | 2024-03-06 15:43 | A.OFFVIS_ITS ---
Intake Visit Reasons: 3m follow up Intake Note: Patient presents today for follow up visit on: hematuria Urology Medications: none Allergies to Antibiotic: none Blood Thinner: none Animation Director Required: Yes Accompanied by: Daughter Allergies griseofulvin [From Candie-PEG (ultramicrosize)] Allergy (Intermediate, Verified 03/06/24 16:13) Rash octopus Allergy (Intermediate, Verified 03/06/24 16:13) Hives pregabalin [From Lyrica] Allergy (Intermediate, Verified 03/06/24 16:13) LEethargy, dizziness celecoxib [From Celebrex] Adverse Reaction (Intermediate, Verified 03/06/24 16:13) Problems with Liver dicyclomine Adverse Reaction (Mild, Verified 03/06/24 16:13) stomach upset oxycodone [From Percocet] Adverse Reaction (Mild, Verified 03/06/24 16:13) Lethargy morphine Adverse Reaction (Verified 03/06/24 16:13) Unknown MANDARIN ORANGES Allergy (Severe, Uncoded 03/06/24 16:13) Lip Swelling, Hives PARMELEX Allergy (Intermediate, Uncoded 03/06/24 16:13) Problems with Liver Medication List - Last Reconciled 03/06/24 by VICKY Downs acetaminophen 1,000 mg PO BID PRN ascorbic acid (vitamin C) 1 g PO BID aspirin 81 mg PO DAILY betamethasone dipropionate 0.05% 0.05 appl topical DAILY calcium carbonate 500 mg PO BID 30 days cholecalciferol (vitamin D3) 1,250 mcg PO QWEEK 90 days coenzyme Q10 (H2Q CoQ10) 200 mg PO DAILY [cpap As directed] loratadine 10 mg PO DAILY 90 days magnesium gluconate 1,000 mg PO BID omega 1-fmx-nhn-fish oil 1,000 mg (120 mg-180 mg) (Fish Oil) 1 cap PO DAILY tacrolimus 0.1% 0.1 appl topical DAILY HPI Comments Details: Raquel is a very pleasant 63-year-old [place]serratian-speaking female patient of Dr. Roper who was accompanied by her granddaughter at today's office visit. She has a past medical history of hematuria, fibromyalgia, gastroparesis, epigastric pain, allergic rhinitis, small bowel obstruction, H pylori, neuropathy, hearing loss, tendinitis, hyperlipidemia, carpal tunnel syndrome, arthritis, obstructive sleep apnea, iron deficiency anemia, and normocytic anemia. She presents to the office today for follow-up of her microscopic hematuria. In discussion with the patient today she reports to be doing and feeling well. She reports no bothersome urinary issues or concerns since her last office visit here approximately 3 months ago. 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 In office urinalysis results reviewed with the patient today no microscopic hematuria noted. We discussed previous urine cytology that was sent during last office visit. Urine Cytology: 12/04:Negative for high-grade urothelial carcinoma. She denies urinary urgency, urinary frequency, incontinence, nocturia, dysuria, foul smelling urine, changes to urinary stream, flank pain, fever, and or chills. She is happy with her current voiding parameters. Discussed potential causes of microscopic hematuria to include kidney stones, cancer in the urinary tract, kidney stone disease or inflammatory conditions of the urinary tract. Discussed at length further microscopic hematuria workup versus surveillance monitoring. Discussed risks and benefits of these interventions. She discusses her longstanding history of microscopic hematuria with previous in office cystoscopies. She otherwise offers no other issues or concerns at this time. [facility] Medical History (Reviewed 03/06/24 @ 16:09 by Marge Walton [facility]) Hematuria Furuncle of buttock Abdominal pain Postmenopausal Muscle cramps Physical exam Fibromyalgia Gastroparesis Midline thoracic back pain Epigastric pain Allergic rhinitis Ingrown toenail of right foot Small bowel obstruction Dyspnea on exertion Elevated AST (SGOT) Nausea RUQ pain H. pylori infection Obesity (BMI 30-39.9) Neuropathy Hearing loss Tendonitis Hyperlipidemia Carpal tunnel syndrome Arthritis Fibromyalgia GRAYSON (obstructive sleep apnea) Iron deficiency anemia Normocytic anemia Surgical History History of esophagogastroduodenoscopy (EGD) Hx of colonoscopy History of endoscopy History of laparoscopic cholecystectomy History of varicose vein stripping Family history of lipoma History of left breast biopsy History of History of temporal artery biopsy History of carpal tunnel repair Family History Father Heart disease Diabetes Hypertension Mother Diabetes Hypertension Arthritis Fibromyalgia Osteoporosis Sister Breast cancer Social History Household Members: Family Caregiver staying overnight: No Housing: Apartment Alcohol intake: never Patient Tobacco Use Status: Never used Tobacco e-Cigarette/Vaping Use: Never Used Second Hand Smoke Exposure: No service: No 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al status: disabled 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: rt hand Cognitive needs: No Hearing needs: Yes Vision needs: No Review of Systems Const Reports no additional complaints Eyes Reports no additional complaints ENT Reports no additional complaints Card Reports as per HPI Resp Reports as per HPI GI Reports as per HPI Reports as per HPI Musc Reports as per HPI Neuro Reports no additional complaints Psych Reports as per HPI Endo Reports no additional complaints Sagar/Lymph Reports no additional complaints Aller/Immun Reports as per HPI Physical Exam Const General: cooperative, healthy appearing, comfortable, no acute distress, well developed, alert and awake Orientation/consciousness: patient oriented x3 Limitations: no limitations HEENT Head: Yes normal to inspection, Yes normocephalic and Yes atraumatic Ears: hearing grossly normal bilaterally Eyes General: appearance normal, both eyes and all related structures Neck Neck: Yes normal visual inspection and Yes trachea midline Chest Chest palpation & inspection: normal inspection of the chest Resp Effort & Inspection: normal respiratory effort and able to speak in complete sentences Cardio Rate: regular rate GI Inspection: Yes normal to inspection General: Yes no CVA tenderness Back/Spine/Pelvis Back: no CVA tenderness Skin General skin exam: no rashes or lesions noted Neuro General: patient oriented x3 Extrem General: Yes normal to inspection Psych Appearance: grossly normal and well kempt Mental Status: mental status grossly normal Speech and movement: Normal speech and movement present and Clear speech present Affect: normal affect Attitude: cooperative Thought process: Normal thought process present Thought content: Normal thought content present Insight: Fair insight present (Psych) Judgement: Fair judgement present (Psych) Results AMB Urinalysis, Automated UA Leukoctes 0 Jonas/uL Last Edit by Rbeecca Chapin on 03/06/24 16:08 UA Nitrite Last Edit by Rebecca Chapin on 03/06/24 16:08 UA Urobilinogen 0.2 mg/dL Last Edit by Rebecca Chapin on 03/06/24 16:08 UA Protein 0 mg/dL Last Edit by Rebecca Chapin on 03/06/24 16:08 UA pH 7.0 Last Edit by Rebecca Chapin on 03/06/24 16:08 UA Blood 0 Mandeep/uL Last Edit by Rebecca Chapin on 03/06/24 16:08 UA Specific [place] 1.005 Last Edit by Rebecca Chapin on 03/06/24 16:08 UA Ketone Last Edit by Rebecca Chapin on 03/06/24 16:08 UA Bilirubin 0 mg/dL Last Edit by Rebecca Chapin on 03/06/24 16:08 UA Glucose 0 mg/dL Last Edit by Rebecca Chapin on 03/06/24 16:08 Assessment & Plan Assessment & Plan (1) Hematuria: Code(s): R31.9 - Hematuria, unspecified Category: Medical Qualifiers: Hematuria type: unspecified type Qualified Code(s): R31.9 - Hematuria, unspecified (2) Microscopic hematuria: Code(s): R31.29 - Other microscopic hematuria Category: Medical Plan In office urinalysis results reviewed with the patient today; as noted above. Recent urine cytology results reviewed with the patient today; as noted above. We discussed at length potential causes of intermittent microscopic hematuria. She currently denies any bothersome urinary issues or concerns. She reports be happy with current voiding parameters. Discussed surveillance monitoring. Discussed, educated, and stressed the importance of adequate hydration for overall health and well-being. Follow-up in 6 months; or sooner with any issues, concerns, and or questions. Orders: Orders AMB Urinalysis Automated Today Z13.9 - Encounter for screening, unspecified Patient Instructions: The patient had an opportunity to ask questions regarding the treatment plan. All questions were answered. Physical exam, labs, and imaging were discussed and reviewed in detail. As well as risks, benefits, and discussion of treatment choices. No major barriers to understanding were identified. The patient expressed understanding and agreement with the above treatment plan. The patient was made aware they should contact our office by phone for worsening of their current condition, the appearance of new symptoms, or with any questions or concerns. Compliance is encouraged with any medications and follow up testing that is ordered. It is a privilege to be allowed the opportunity to p articipate in? your urological care.? Again, if you have any questions or concerns If you have any questions or concerns please do not hesitate to contact me. The office is [phone]. This note is constructed using voice recognition software. While every effort has been made to ensure accuracy striper errors may have been included. Yours sincerely, VICYK Downs Coding Level of Care Code Est Pt Level 3 (52981) Complex EM visit Add On G2211 Diagnoses Hematuria, unspecified type R31.9 Hematuria type: unspecified type Microscopic hematuria R31.29
== END 2024-03-06 16:05 | disposition home or self-care (01) ==
PROVIDERS: PCP Internal Medicine; Visit Provider Nurse Practitioner Family
DX: R31.9 Hematuria, unspecified (principal); R31.29 Other microscopic hematuria; Z13.9 Encounter for screening, unspecified
CPT/HCPCS: 99213; G2211

== ENCOUNTER → 2024-03-06 15:42 | Outpatient (BNVA) | payer OTHER, SELFPAY | PROVIDERS: PCP Internal Medicine; Visit Provider Nurse Practitioner Family | DX: R31.9 Hematuria, unspecified (principal); R31.29 Other microscopic hematuria | CPT/HCPCS: 81003; 99212 ==

== ENCOUNTER 2024-04-12 15:25 | Outpatient (AMB) | payer OTHER, SELFPAY ==
--- NOTE | 2024-04-12 15:27 | A.OFFVIS_ITS ---
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 States her toes get really cold Feels numbness and tingling as well. Non smoker, non diabetic. Accompanied by: Child Allergies griseofulvin [From Candie-PEG (ultramicrosize)] Allergy (Intermediate, Verified 03/06/24 16:13) Rash octopus Allergy (Intermediate, Verified 03/06/24 16:13) Hives pregabalin [From Lyrica] Allergy (Intermediate, Verified 03/06/24 16:13) LEethargy, dizziness celecoxib [From Celebrex] Adverse Reaction (Intermediate, Verified 03/06/24 16:13) Problems with Liver dicyclomine Adverse Reaction (Mild, Verified 03/06/24 16:13) stomach upset oxycodone [From Percocet] Adverse Reaction (Mild, Verified 03/06/24 16:13) Lethargy morphine Adverse Reaction (Verified 03/06/24 16:13) Unknown MANDARIN ORANGES Allergy (Severe, Uncoded 03/06/24 16:13) Lip Swelling, Hives PARMELEX Allergy (Intermediate, Uncoded 03/06/24 16:13) Problems with Liver HPI HPI 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 Complaints include pain over varicosities, swelling of lower extremities, cramping, fatigue, and heaviness of the lower extremities. It has been affecting there daily activities including walking. It is noted more so in right leg. Patient she does report previous procedures and venous ablation is of the right lower extremity and left lower extremity by Dr.. Asher dating back to 2017 and 2019. What was done they are exactly uncertain. Patient denies any history of DVT/ PE. Patient denies any history of phlebitis. Trial of compression includes - prescription compression. They appeared to be old and a new prescription was provided. They now present for vascular evaluation regarding their varicose veins. [facility] Medical History Hematuria Furuncle of buttock Abdominal pain Postmenopausal Muscle cramps Physical exam Fibromyalgia Gastroparesis Midline thoracic back pain Epigastric pain Allergic rhinitis Ingrown toenail of right foot Small bowel obstruction Dyspnea on exertion Elevated AST (SGOT) Nausea RUQ pain H. pylori infection Obesity (BMI 30-39.9) Neuropathy Hearing loss Tendonitis Hyperlipidemia Carpal tunnel syndrome Arthritis Fibromyalgia GRAYSON (obstructive sleep apnea) Iron deficiency anemia Normocytic anemia Surgical History History of esophagogastroduodenoscopy (EGD) Hx of colonoscopy History of endoscopy History of laparoscopic cholecystectomy History of varicose vein stripping Family history of lipoma History of left breast biopsy History of History of temporal artery biopsy History of carpal tunnel repair Family History Father Heart disease Diabetes Hypertension Mother Diabetes Hypertension Arthritis Fibromyalgia Osteoporosis Sister Breast cancer Social History Household Members: Family Caregiver staying overnight: No Housing: Apartment Alcohol intake: never Patient Tobacco Use Status: Never used Tobacco e-Cigarette/Vaping Use: Never Used Second Hand Smoke Exposure: No service: No 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al status: disabled 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: rt 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 Cognitive needs: No Hearing needs: Yes Vision needs: No Review of Systems Const Reports as per HPI ENT Reports no additional complaints Card Denies chest pain, Denies chest pain at rest and Denies chest pain with activity Resp Denies chest congestion and Denies cough GI Reports no additional complaints Musc Details: pain over varicosities, aching of lower extremities, swelling, cramping, heaviness and tiredness, itching Denies abnormal gait Skin/Breast Reports pruritus and Denies wounds Neuro Reports no additional complaints and Denies abnormal gait Psych Denies no additional complaints Physical Exam Const General: cooperative, healthy appearing and comfortable Orientation/consciousness: oriented to person, oriented to place and oriented to time Neck Carotids: no bruits Chest Chest palpation & inspection: normal inspection of the chest and normal palpation of entire chest wall Resp Effort & Inspection: normal respiratory effort and able to speak in complete sentences Cardio Rate: regular rate Heart sounds: S1 normal heart sound present and S2 normal heart sound present Peripheral pulses: Peripheral pulses 2+ throughout GI Inspection: Yes normal to inspection Skin Other: +2 edema, multiple spider telangiectasias CEAP Classification C4 - skin color changes Ep - Etiology Primary As - superficial veins P - reflux General skin exam: dry skin Neuro General: oriented to person, oriented to place and oriented to time Extrem Right lower extremity: full ROM, normal capillary refill and edema Left lower extremity: full ROM, normal capillary refill and edema Psych Mental Status: mental status grossly normal Assessment & Plan Assessment & Plan (1) Varicose veins of right lower extremity with inflammation: Code(s): I83.11 - Varicose veins of right lower extremity with inflammation Category: Medical Plan: In short, the patient has evidence of venous insufficiency. I have discussed the pathophysiology with the patient. In addition I have provided informational material regarding venous disease to the patient. We have discussed conservative measures including compression, elevation, and exercise. I have also provided a handout regarding appropriate use of compression stockings and where to purchase good compression stockings as well. I have taken the liberty of ordering venous insufficiency testing with the patient. They will follow up with me after testing. The patient had an opportunity to ask questions regarding the treatment plan. All questions were answered. Imaging studies, laboratory studies and physical exam results were discussed and reviewed in detail. No major barriers to understanding were identified. The patient expressed understanding and agreement with the above treatment plan. The patient is aware they should contact our office by phone for worsening of the current condition or the appearance of new symptoms. Thank you for allowing me to participate in the vascular care of this patient. If you have any questions or concerns regarding the treatment for the above condition please do not hesitate to contact me. The office telephone contact is [phone]. This note is constructed using voice recognition software. While every effort has been made to ensure accuracy, transcription coordinator errors may have been included. Thank you for allowing me to participate in the care of your patient. Yours sincerely, Ezio Ferrer MD, FACS, R.P.V.I. (2) Hand numbness: Code(s): R20.0 - Anesthesia of skin Category: Medical Plan: In addition she did note some discoloration of the upper extremities which I did not appreciate. I also examined her hands which did have palpable brachial radial ulnar pulses. I did reassure them that this was not vascular in nature. It does appear to be more neurogenic as she does have multiple carpal tunnel releases in the past. We will continue to follow her for venous disease. Thank you for allowing us to assist in her care. Orders: Orders US venous duplex LE BI 1 Week I83.11 - Varicose veins of right lower extremity with inflammation Coding Level of Care Code New Pt Level 4 (59964) Diagnoses Varicose veins of right lower extremity with inflammation I83.11 Hand numbness R20.0
== END 2024-04-12 15:44 | disposition home or self-care (01) ==
LOC: HO.HVS 15:25
PROVIDERS: PCP Internal Medicine; Visit Provider Surgery Vascular Surgery
DX: I83.11 Varicose veins of right lower extremity with inflammation (principal); R20.0 Anesthesia of skin
CPT/HCPCS: 99204

== ENCOUNTER → 2024-04-12 15:25 | Outpatient (BNVA) | payer OTHER, SELFPAY | PROVIDERS: PCP Internal Medicine; Visit Provider Surgery Vascular Surgery | DX: I83.11 Varicose veins of right lower extremity with inflammation (principal); R20.0 Anesthesia of skin | CPT/HCPCS: 99202 ==

== ENCOUNTER 2024-04-30 12:44 | Outpatient (REF) | payer OTHER, SELFPAY | END 2024-04-30 12:45 | disposition home or self-care (01) | LOC: HO.US 12:44 | PROVIDERS: PCP Internal Medicine; Visit Provider Surgery Vascular Surgery | DX: I83.11 Varicose veins of right lower extremity with inflammation (principal) | CPT/HCPCS: 93970 ==

== ENCOUNTER 2024-04-30 13:50 | Outpatient (REF) | payer OTHER, SELFPAY | END 2024-04-30 13:51 | disposition home or self-care (01) | LOC: HO.HAP 13:50 | PROVIDERS: Visit Provider Internal Medicine | DX: Z46.1 Encounter for fitting and adjustment of hearing aid (principal); H90.3 Sensorineural hearing loss, bilateral | CPT/HCPCS: V5266 ==

== ENCOUNTER → 2024-05-16 14:50 | Outpatient (BNVA) | payer OTHER, SELFPAY | PROVIDERS: PCP Internal Medicine; Visit Provider Advanced Practice Midwife | DX: Z01.419 Encounter for gynecological examination (general) (routine) without abnormal findings (principal) | CPT/HCPCS: 99396 ==

== ENCOUNTER 2024-05-16 15:09 | Outpatient (AMB) | payer OTHER, SELFPAY ==
--- NOTE | 2024-05-16 15:11 | MHC.OFFVIS ---
Vital Signs 05/16/24 15:15 Height 5 ft 1 in Weight 148 lb BMI 28.0 BP 102/66 Intake Visit Reasons: CIRCUIT JUDGE annual exam/30 mins Data Power Consultant Required: Yes Data Power Consultant Language: Label Designer Name: Keke [id number] Market Reporter: Market Reporter Present Allergies griseofulvin [From Candie-PEG (ultramicrosize)] Allergy (Intermediate, Verified 05/16/24 15:15) Rash octopus Allergy (Intermediate, Verified 05/16/24 15:15) Hives pregabalin [From Lyrica] Allergy (Intermediate, Verified 05/16/24 15:15) LEethargy, dizziness celecoxib [From Celebrex] Adverse Reaction (Intermediate, Verified 05/16/24 15:15) Problems with Liver dicyclomine Adverse Reaction (Mild, Verified 05/16/24 15:15) stomach upset oxycodone [From Percocet] Adverse Reaction (Mild, Verified 05/16/24 15:15) Lethargy morphine Adverse Reaction (Verified 05/16/24 15:15) Unknown MANDARIN ORANGES Allergy (Severe, Uncoded 03/06/24 16:13) Lip Swelling, Hives PARMELEX Allergy (Intermediate, Uncoded 03/06/24 16:13) Problems with Liver HPI Comments Details: She is a postmenopausal woman presenting for her annual cook dinner examination. She is doing well with no concerns. Currently sexually active. Denies any vaginal dryness or irritation. Attempting to eat a healthy diet with calcium and vitamin D, limited exercise w/ankle pain. Last pap smear; 2022. Last mammogram; 2023. Colonoscopy is UTD. Denies any family history of breast, ovarian or colon cancer. [facility], [facility] Medical History Hematuria Furuncle of buttock Abdominal pain Postmenopausal Muscle cramps Physical exam Fibromyalgia Gastroparesis Midline thoracic back pain Epigastric pain Allergic rhinitis Ingrown toenail of right foot Small bowel obstruction Dyspnea on exertion Elevated AST (SGOT) Nausea RUQ pain H. pylori infection Obesity (BMI 30-39.9) Neuropathy Hearing loss Tendonitis Hyperlipidemia Carpal tunnel syndrome Arthritis Fibromyalgia GRAYSON (obstructive sleep apnea) Iron deficiency anemia Normocytic anemia Surgical History History of esophagogastroduodenoscopy (EGD) Hx of colonoscopy History of endoscopy History of laparoscopic cholecystectomy History of varicose vein stripping Family history of lipoma History of left breast biopsy History of History of temporal artery biopsy History of carpal tunnel repair Family History Father Heart disease Diabetes Hypertension Mother Diabetes Hypertension Arthritis Fibromyalgia Osteoporosis Sister Breast cancer Social History Household Members: Family Caregiver staying overnight: No Housing: Apartment Alcohol intake: never Patient Tobacco Use Status: Never used Tobacco e-Cigarette/Vaping Use: Never Used Second Hand Smoke Exposure: No service: No 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al status: disabled 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: rt hand Cognitive needs: No Hearing needs: Yes Vision needs: No Female Reproductive History Menstrual Total pregnancies: 2 Full term: 2 Number of Living Children: 2 Date of last pap smear: 03/17/23 (neg) Date of Mammogram: 01/25/24 (Birad 2) History of abnormal mammogram: Yes Review of Systems Const All systems reviewed & are unremarkable except as noted in HPI and below Reports as per HPI Eyes Reports no additional complaints ENT Reports no additional complaints Card Reports no additional complaints Resp Reports no additional complaints GI Reports as per HPI and Reports no additional complaints Reports as per HPI Musc Reports no additional complaints Skin/Breast Reports as per HPI Neuro Reports no additional complaints Psych Reports no additional complaints Endo Reports no additional complaints Sagar/Lymph Reports no additional complaints Aller/Immun Reports no additional complaints Physical Exam Vital Signs: Last Vital Signs BP 102/66 05/16/24 15:15 BMI result Body Mass Index 28.0 Const General: cooperative, healthy appearing, no acute distress, well developed and alert Orientation/consciousness: patient oriented x3 HEENT Head: Yes normal to inspection Eyes General: appearance normal, both eyes and all related structures Neck Neck: Yes normal visual inspection Thyroid: Thyroid normal Chest Chest palpation & inspection: normal inspection of the chest and other (no puckering, dimpling, peau de orange, retraction, discharge, masses) Breast/axilla inspection: normal inspection of the breasts Breast/axilla palpation: normal palpation of the breasts Resp Effort & Inspection: normal respiratory effort GI Inspection: Yes normal to inspection Palpation (GI): Soft to palpation Rectal Exam - Female: deferred General: Yes bladder normal to palpation External Female Exam: normal external appearance and normal appearance of the urethra Speculum Exam - Vagina: normal appearance of the vagina, normal palpation, normal vaginal discharge and vagina atrophic Speculum Exam - Cervix: normal appearance of the cervix and normal palpation Bimanual exam- vagina & uterus: normal bimanual exam, normal palpation, uterine size normal, bladder normal to palpation, normal palpation and non-tender Bimanual Exam- Adnexa, other: no masses Skin General skin exam: no rashes or lesions noted Rashes: no rashes Neuro General: patient oriented x3 Cognition (Neuro): normal cognition Extrem General: Yes normal to inspection Psych Attitude: cooperative Thought process: Normal thought process present Assessment & Plan Assessment & Plan (1) Encounter for well woman exam with routine gynecological exam: Code(s): Z01.419 - Encounter for gynecological examination (general) (routine) without abnormal findings Category: Medical Plan: Discussed: Current recommendations for pap smears per ASCCP guidelines. Breast awareness, periodic self breast exams and yearly mammogram. Maintain a healthy lifestyle, well balanced diet including Calcium 1,200 mg and Vitamin D 600 IU daily, and routine exercise. Contact the office with any postmenopausal bleeding. Patient verbalizes understanding and agrees to the plan of care. She was given opportunity to ask questions and all questions were answered to the best of my ability. RTO in 1 year for annual cook dinner exam. This note is constructed using voice recognition software. While every effort has been made to ensure accuracy, logistics and planning manager errors may have been included. Plan Discussed: Current recommendations for pap smears per ASCCP guidelines. Breast awareness, periodic self breast exams and yearly mammogram. Maintain a healthy lifestyle, well balanced diet including Calcium 1,200 mg and Vitamin D 600 IU daily, and routine exercise. Use of condoms for STI prevention if indicated. Contact the office with any postmenopausal bleeding. Patient verbalizes understanding and agrees to the plan of care. She was given opportunity to ask questions and all questions were answered to the best of my ability. RTO in 1 year for annual cook dinner exam. This note is constructed using voice recognition software. While every effort has been made to ensure accuracy, logistics and planning manager errors may have been included. Coding Level of Care Code Est Pt Prev Care 40-64y(86027) Diagnoses Encounter for well woman exam with routine gynecological exam Z01.419
[2024-05-16 15:15] VITALS: BP 102/66; BMI 28.0
== END 2024-05-16 15:47 | disposition home or self-care (01) ==
PROVIDERS: PCP Internal Medicine; Visit Provider Advanced Practice Midwife
DX: Z01.419 Encounter for gynecological examination (general) (routine) without abnormal findings (principal)
CPT/HCPCS: 99396

== ENCOUNTER 2024-06-01 13:10 | Outpatient (REF) | payer OTHER, SELFPAY | END 2024-06-01 13:11 | disposition home or self-care (01) | LOC: HO.HAP 13:10 | PROVIDERS: Visit Provider Internal Medicine | DX: Z46.1 Encounter for fitting and adjustment of hearing aid (principal); H90.3 Sensorineural hearing loss, bilateral | CPT/HCPCS: V5266 ==

== ENCOUNTER 2024-07-31 13:06 | Outpatient (AMB) | payer OTHER, SELFPAY ==
[2024-07-31 13:11] VITALS: BMI 28.0
--- NOTE | 2024-07-31 13:11 | A.OFFVIS_ITS ---
Vital Signs 07/31/24 13:11 Height 5 ft 1 in Weight 148 lb BMI 28.0 Intake Visit Reasons: follow up s/p US 04/27/24 Intake Note: follow up US 04/27/24 for bilateral LE swelling and pain and cramping. Left LE and toes worse than Right LE. Urban Redevelopment Specialist Required: No Accompanied by: Daughter Allergies griseofulvin [From Candie-PEG (ultramicrosize)] Allergy (Intermediate, Verified 07/31/24 13:15) Rash octopus Allergy (Intermediate, Verified 07/31/24 13:15) Hives pregabalin [From Lyrica] Allergy (Intermediate, Verified 07/31/24 13:15) LEethargy, dizziness celecoxib [From Celebrex] Adverse Reaction (Intermediate, Verified 07/31/24 13:15) Problems with Liver dicyclomine Adverse Reaction (Mild, Verified 07/31/24 13:15) stomach upset oxycodone [From Percocet] Adverse Reaction (Mild, Verified 07/31/24 13:15) Lethargy morphine Adverse Reaction (Verified 07/31/24 13:15) Unknown MANDARIN ORANGES Allergy (Severe, Uncoded 07/31/24 13:15) Lip Swelling, Hives PARMELEX Allergy (Intermediate, Uncoded 07/31/24 13:15) Problems with Liver HPI HPI follow up s/p US 04/27/24: Details: Raquel is presenting today with her daughter for a follow up to venous insufficiency ultrasound, performed on 04/30/2024. We utilized her daughter as an director of finance. The patient continues to endorse bilateral numbness and tingling in her feet and mild cramping in bilateral calves, with the left leg a little bit more painful than the right. She is currently being treated for tendinitis of the right Achilles tendon. She recently had EMG testing in January, which was negative for any nerve issues. She is not a diabetic. [facility] Medical History Hematuria Furuncle of buttock Abdominal pain Postmenopausal Muscle cramps Physical exam Fibromyalgia Gastroparesis Midline thoracic back pain Epigastric pain Allergic rhinitis Ingrown toenail of right foot Small bowel obstruction Dyspnea on exertion Elevated AST (SGOT) Nausea RUQ pain H. pylori infection Obesity (BMI 30-39.9) Neuropathy Hearing loss Tendonitis Hyperlipidemia Carpal tunnel syndrome Arthritis Fibromyalgia GRAYSON (obstructive sleep apnea) Iron deficiency anemia Normocytic anemia Surgical History History of esophagogastroduodenoscopy (EGD) Hx of colonoscopy History of endoscopy History of laparoscopic cholecystectomy History of varicose vein stripping Family history of lipoma History of left breast biopsy History of History of temporal artery biopsy History of carpal tunnel repair Family History Father Heart disease Diabetes Hypertension Mother Diabetes Hypertension Arthritis Fibromyalgia Osteoporosis Sister Breast cancer Social History Household Members: Family Caregiver staying overnight: No Housing: Apartment Alcohol intake: never Patient Tobacco Use Status: Never used Tobacco e-Cigarette/Vaping Use: Never Used Second Hand Smoke Exposure: No service: No 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al status: disabled 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: rt hand Cognitive needs: No Hearing needs: Yes Vision needs: No Review of Systems Const Reports as per HPI and Denies weakness ENT Reports Normal hearing present and Denies dizziness Card Reports as per HPI, Denies chest pain, Denies chest pain at rest, Denies chest pain with activity, Denies dyspnea and Denies dyspnea on exertion Resp Reports as per HPI, Denies cough, Denies dyspnea and Denies dyspnea on exertion GI Reports as per HPI, Denies abdominal pain, Denies nausea and Denies vomiting Musc Denies numbness Skin/Breast Reports as per HPI, Denies erythema and Denies wounds Neuro Reports Normal hearing present, Denies dizziness, Denies numbness, Denies Sensory deficit (Neuro) and Denies weakness Psych Reports no additional complaints Endo Reports no additional complaints Physical Exam Vital Signs: BMI result Body Mass Index 28.0 Const General: healthy appearing and no acute distress Orientation/consciousness: patient oriented x3 HEENT Head: Yes normal to inspection Ears: hearing grossly normal bilaterally Mouth: Normal oral and palatal mucosa present Resp Effort & Inspection: normal respiratory effort and able to speak in complete sentences Auscultation: clear to auscultation bilaterally Cardio Jugular venous distension: no JVD Rate: regular rate Rhythm: regular rhythm Heart sounds: S1 normal heart sound present and S2 normal heart sound present Bruits: no abdominal aortic bruits, no carotid bruits, no femoral bruits and no renal bruits Peripheral pulses: Peripheral pulses 2+ throughout GI Inspection: Yes normal to inspection Palpation (GI): No Abdominal aortic bruit present Skin General skin exam: no rashes or lesions noted Wounds: no wounds Hair: normal Neuro General: patient oriented x3 Cranial nerves: Yes Normal hearing present Cognition (Neuro): normal cognition Gait exam (Neuro): Normal gait present Motor exam (neuro): 5/5 motor strength present throughout Sensory Exam: No Sensory deficit (Neuro) Extrem Other: Bilateral lower extremities: Right more than left trace peripheral edema noted. Right ankle in a brace. Palpable DP pulses. General: Yes normal to inspection, Yes full ROM, Yes capillary refill normal and Yes normal gait Results Reviewed Results Reviewed: Brief summary of venous insufficiency testing is as follows: right great saphenous vein: negative, not seen from the mid thigh down to the ankle right small saphenous vein: negative right accessory vein: none present left great saphenous vein: negative, not seen from the mid thigh down to the ankle left small saphenous vein: negative left accessory vein: none present Please note there is no evidence of any venous aneurysms or significant tortuosity Right lower extremity at the proximal thigh there is perforators noted with some reflux. There is also multiple varicose veins, all less than 3 mm. Assessment & Plan Assessment & Plan (1) Varicose veins of right lower extremity with inflammation: Code(s): I83.11 - Varicose veins of right lower extremity with inflammation Category: Medical Plan: Raquel is presenting today with her daughter for review of venous insufficiency ultrasound, performed on 04/30/2024. There was no insufficiency noted on ultrasound. There was some reflux in smaller perforators on the right lower extremity. She does have a significant history of bilateral venous ablations proximally 6-[address] Asher. She states she continues with numbness and tingling in her feet as well as cramping in her calves, left side a little more than right. She also notes that in the winter time or when it was cold her hands and feet become more painful with discoloration and numbness and tingling, similar to a Raynaud's phenomenon. I discussed with her that there was no vascular insufficiency to cause the complaints that she is having at this time. We discussed to reach out to her PCP for further evaluation for possible Raynaud's or other neurological issues, in relation to the symptoms that she has been experiencing. I discussed with her that if she has any vascular concerns, she can reach out to us any point. Thank you for allowing us to participate in the patient's care. There are any questions or concerns, please do not hesitate to reach out to us. Coding Level of Care Code Est Pt Level 4 (99521) Diagnoses Varicose veins of right lower extremity with inflammation I83.11 Comment Review of venous insufficiency ultrasound
--- OUTSIDE RECORDS SUMMARY | 2024-07-31 14:04 | XMS_ITS | Encounter Summary ---
Author Organization [facility] Address [address] [place] [address] Care Team Providers Care Embedded Linux Developer Name Role Phone Julia Oviedo MD Primary Care Provider [phone] Encounter Details Date Type Department Care Team (Late Contact Info) Description 07/17/2024 Telephone Orthopedic Surgery - [place] [address] [phone] Vijay Powell DPM [address] [address] Social History Tobacco Use Types Packs/Day Years Used Date Smoking Tobacco: Never Assessed Comments Unknown Sex and Gender Information Value Date Recorded Sex Assigned at Not on file Legal Sex Female 10:48 PM EST Gender Identity Not on file Sexual Orientation Not on file documented as of this encounter Progress Notes * Anna Krause - 07/17/2024 11:44 AM EST Conchita daughter of Raquel is calling requesting a call back to discuss surgery date and time [phone] documented in this encounter Plan of Treatment Upcoming Encounters Date Type Department Care Team (Late Contact Info) Description 08/31/2024 7:30 AM EDT Hospital Encounter [facility] [address] [place] [phone] Vijay Powell DPM [address] [address] 08/31/2024 7:30 AM EDT - 08/31/2024 9:00 AM EDT Surgery [facility] [place] [address] [place] [phone] Vijay Powell, DPM [address] [facility] [address] [place] [address] EXCISION LESION SOFT TISSUE RIGHT FOOT [08831 (CPT??)] Scheduled Procedures Name Priority Associated Diagnoses Date/Ti me EXCISION LESION SOFT TISSUE FOOT Other bursal cyst, right ankle and foot 08/31/2024 7:30 AM EDT documented as of this encounter Visit Diagnoses Not on filedocumented in this encounter Care Teams Embedded Linux Developer Relationship Specialty Start Date End Date Julia Oviedo MD [address] [place] [address] , [address] [facility] D[facility]A: [facility] [place], [place] PCP - General 08/02/23 documented as of this encounter
--- OUTSIDE RECORDS SUMMARY | 2024-07-31 14:04 | XMS_ITS | Clinical Summary ---
Author Organization [facility] Address [address] [place] [address] Phone Care Team Providers Care Siding Stapler Name Role Phone Julia Oviedo MD Primary Care Provider [phone] Allergies Active Allergy Reactions Criticality Noted Date Comments Celecoxib 10/07/2016 Dicyclomine 10/07/2016 Griseofulvin Microsize 10/07/2016 Morphine 10/03/2023 Nortriptyline 10/07/2016 Other 10/07/2016 Oxycodone 10/07/2016 Pregabalin 10/07/2016 Rosuvastatin Calcium 10/07/2016 Medications albuterol HFA (PROAIR HFA ; PROVENTIL HFA ; VENTOLIN HFA) 90 mcg/actuation inhaler Inhale 2 puffs by mouth every 4 (four) hours if needed for wheezing or shortness of breath. 8 Active amitriptyline HCl (AMITRIPTYLINE ORAL) Take by mouth. Activ e calcium carbonate/vitami n D3 (CALCIUM 500 + D ORAL) Take by mouth. A ctive clindamycin phosphate 1 % gel, once daily Apply topically 2 (two) times a day. : Apply small amount on the face 8 Active clobetasoL (TEMOVATE) 0.05 % ointment Apply topically. APLIQUE AL AREA AFECTADA DOS VECES AL CAT FOR 3 TO 4 WEEKS 8 Active clotrimazole (LOTRIMIN) 1 % external solution Apply topically 2 (two) times a day. Active cranberry fruit concentrate 125 mg tablet,disintegr ating Take 125 mg by mouth. Active diclofenac (VOLTAREN) 1 % topical gel Apply 4 g topically 2 (two) times a day. 4 Active DEXTRIN ORAL Take by mouth. Ac tive GABAPENTIN ORAL Take by mouth. Active gemfibroziL (LOPID) 600 mg tablet Take 1 tablet (600 mg total) by mouth 2 (two) times a day before meals. Active linaCLOtide (LINZESS) 145 mcg capsule Take 1 capsule (145 mcg total) by mouth. Active methotrexate 2.5 mg tablet Take 4 tablets (10 mg total) by mouth 1 (one) time per week For 30 days 8 Active omeprazole (PriLOSEC) [address] capsule Take 2 capsules (20 mg total) by mouth 1 (one) time each day. Active oxymetazoline HCl (OXYMETAZOLINE OPHT) Administer into affected nostril(s). Active salicylic acid 40 % adhesive patch,medicated Apply 1 applicator topically 1 (one) time each day. 4 Active senna (SENOKOT) 8.6 mg tablet Take 1 tablet (8.6 mg total) by mouth 1 (one) time each day. Active plecanatide (Trulance) 3 mg tablet Take by mouth. TOME FATMATA TABLETA POR V?A ORAL TODOS LOS MENDOZA 8 Active cholecalciferol (VITAMIN D-3) 25 mcg (1,000 unit) capsule Take 1 capsule (1,000 Units total) by mouth. Active Active Problems Problem Noted Date Diagnosed Date Other bursal cyst, right ankle and foot 05/15/20 24 PLMD (periodic limb movement disorder) 9 Allergic rhinitis 07/08/2017 Asthma 07/08/2017 Fatty liver 07/08/2017 Fibroma 07/08/2017 GERD (gastroesophageal reflux disease) 8 Hiatal hernia 07/08/2017 Hyperlipidemia 07/08/2017 Orthostatic hypotension 07/08/2017 GRAYSON (obstructive sleep apnea) 07/08/2017 Overview (03/30/2024): CPAP RBMG Polysomnogram treatment study. Date 11/11/2018. SE 88 % SM 90 %; spent 19 % of the study in REM. On CPAP @ 8; RDI 0 (AHI 0), Central apneas 0; Obstructive apneas 0; Mixed apneas 0; hypopneas 0; RERAs 0; and, average oxygen saturation was 96%. For the entire study, PLMs ~38. - 11/11/2018 Pre-study ESS 14. 4/4 RLS symptoms. Osteopenia 07/08/2017 Pulmonary nodules 07/08/2017 Vitamin D deficiency 07/08/2017 Psoriasis 04/23/2017 Encounters Date Type Department Care Team Description 07/17/2024 Telephone Orthopedic Surgery [place] [id number] [phone] Vijay Powell DPM 05/15/2024 3:00 PM EST Office Visit Orthopedic [place] [id number] [phone] Vijay Powell DPM Other bursal cyst, right ankle and foot (Primary Dx); Tendonitis, Achilles, right; Dejon's deformity of right heel; Acquired hammer toe of right foot from Last 3 Months Social History Tobacco Use Types Packs/Day Years Used Date Smoking Tobacco: Never Assessed Comments Unknown Sex and Gender Information Value Date Recorded Sex Assigned at Not on file Legal Sex Female 10:48 PM EST Gender Identity Not on file Sexual Orientation Not on file Last Filed Vital Signs Vital Sign Reading Time Taken Comments Blood Pressure - - Pulse - - Temperature - - Respiratory Rate - - Oxygen Saturation - - Inhaled Oxygen Concentration - - Weight 65.3 kg (144 lb) 05/15/2024 3:30 PM EST Height 154.9 cm (5' 0.98 ) 05/15/2024 3:30 PM ES T Body Mass Index 27.22 05/15/2024 3:30 PM EST Plan of Treatment Upcoming Encounters Date Type Department Care Team (Late st Contact Info) Description 08/31/2024 7:30 AM EDT Hospital Encounter [facility] Main OR [address] [place] [phone] Vijay Powell DPM [address] [address] 08/31/2024 7:30 AM EDT - 08/31/2024 9:00 AM EDT Surgery [facility] OR [address] [place] [phone] Vijay Powell, DPM 175 [facility] [address] [place] [address] EXCISION LESION SOFT TISSUE RIGHT FOOT [[id number] (CPT??)] Scheduled Procedures Name Priority Associated Diagnoses Date/Ti me EXCISION LESION SOFT TISSUE FOOT Other bursal cyst, right ankle and foot 08/31/2024 7:30 AM EDT Health Maintenance Due Date Last Done Comments Breast Cancer Screening 1960 COVID-19 Vaccine (#1) 11/13/1964 Pneumococcal Vaccine: 50+ Years (1 of 2 - PCV) 11/13/1978 Pneumococcal Vaccine: Pediatrics (0 to 5 Years) and At-Risk Patients (6 to 64 Years) (1 of 2 - PCV) 11/13/1978 Cervical Cancer Screening: P ap Smear 11/13/1980 Zoster Vaccines (1 of 2) 11/13/2009 Hepatitis B Vaccines (3 of 3 - 19+ 3-dose series) 07/29/2016 02/26/2016, 01/27/2016 RSV Immunization Patients 60 + Years Old (1 - Risk 60-74 years 1-dose series) 2019 Cholesterol Screening (Lipid Panel) 01/10/2024 Colorectal Cancer Screening: Colonoscopy 01/10/2024 Depression Screening 01/10/2024 HIV Screening 01/10/2024 Social Influencers of Health Screening 01/10/2024 Influenza Vaccine (#1) 2024 05/04/2016 DTaP,Tdap,and Td Vaccines (2 - Td or Tdap) 01/13/2026 01/14/2016 Hepatitis C Screening Completed 10/07/2016 HIB Vaccines Aged Out No longer eligi ble based on patient's age to complete this topic HPV Vaccines Aged Out No longer eligi ble based on patient's age to complete this topic Hepatitis A Vaccines Aged Out No long er eligible based on patient's age to complete this topic IPV Vaccines Aged Out No longer eligi ble based on patient's age to complete this topic MMR Vaccines Aged Out No longer eligi ble based on patient's age to complete this topic Meningococcal ACWY Vaccine Aged Out N o longer eligible based on patient's age to complete this topic Meningococcal B Vacine Aged Out No lo nger eligible based on patient's age to complete this topic RSV Immunization Patients Under 20 months Aged Out No longer eligible b ased on patient's age to complete this topic Varicella Vaccines Aged Out No longer eligible based on patient's age to complete this topic Procedures Procedure Name Priority Date/Time Associated Diagnosis Comments HEPATITIS C SCREENING Routine 10/07/2016 from Last 3 Months or Most Recently Relevant to Health Maintenance Results * Hepatitis C Screening (10/07/2016) Hepatitis C Screening abstracted us Historical Provider HEALTH MAINTENANCE Final Result from Last 3 Months or Most Recently Relevant to Health Maintenance Insurance [facility] [employer] Care Teams Siding Stapler Relationship Specialty Start Date End Date Julia Oviedo MD [address] [place] [address] , [address] [facility] D[facility]A: [facility] [place], [place] PCP - General 08/02/23
--- OUTSIDE RECORDS SUMMARY | 2024-07-31 14:04 | XMS_ITS | Data Portability ---
Author Organization [place] - [facility], Allergy Address [address] [address] Care Team Providers Care Civil Design Specialist Name Role Phone SUNIL LA Primary Care Provider Assessment Encounter Date Assessment Date Assessment LastModified by Organization Details LastModified Time 11/11/2023 11/11/2023 62-year-old fema dagoberto with significant eustachian tube dysfunction presents for reevaluation of left otitis externa. On examination there is some residual Lotrisone which was removed from the canal today. No further otorrhea. TM perforation is large but dry with healthy middle ear mucosa. No specific tenderness with manipulation of the pinna or tragus. There is erythema postauricularly on the left which is tender to palpation but not boggy. Right otologic exam is unremarkable with small central perforation which is dry. As she has a large perforation I am not concerned about mastoiditis. More likely the erythema noted postauricularly is a cellulitis. Recommended ciprofloxacin. I also discussed Ciprodex for dual coverage in case there is some persistent otitis externa or OM but she declines. Will continue dry ear precautions and follow-up in 2 to 3 weeks for reevaluation. All questions were answered. [email or web address] Not available 11/11/2023 13:48:47 11/29/2023 11/29/2023 Left-sided otorrhea has resolved. There is a 5% perforation of the right tympanic membrane and a 20% perforation of the left tympanic membrane. Last audiometric testing was reviewed showing bilateral mixed hearing loss which is currently being remedied with binaural amplification. Today I spoke with the patient and her daughter at length. In light of her chronic underlying eustachian tube dysfunction I would not recommend consideration of tympanoplasty at this time, unless she is having more problems with chronic otorrhea. She should maintain dry ear precautions. Recommend follow-up with PA in 6 months for routine preventative ear cleaning and maintenance to prevent future otorrhea. [email or web address] Not available 11/29/2023 16:27:20 05/29/2024 05/29/2024 Left-sided otorrhea has resolved. There is a 5% perforation of the right tympanic membrane and a 20% perforation of the left tympanic membrane. Last audiometric testing was reviewed showing bilateral mixed hearing loss which is currently being remedied with binaural amplification. Today I spoke with the patient and her daughter at length. In light of her chronic underlying eustachian tube dysfunction I would not recommend consideration of tympanoplasty at this time, unless she is having more problems with chronic otorrhea. She should maintain dry ear precautions. Recommend follow-up with PA in 6 months for routine preventative ear cleaning and maintenance to prevent future otorrhea. [email or web address] Not available 05/28/2024 20:02:08 Plan of Treatment Reminders Order Date Submit Date Provider Last Modified By Organization Details Last Modified Time Details Appointments Establish ed 15 2024 01:00P M ZOEY GOOD PA-C Not available Not available Not available Lab None recorded. Referral None recorded. Procedures None recorded. Surgeries None recorded. Imaging None recorded. Medication Orders clotrimaz ole-betam ethasone 1 %-0.05 % topical cream 2023 024 [facility]armacy #[id number], [address] [place], [address], 05/29/2024 13:38:28 ciproflox acin 750 mg tablet [email or web address] [facility]/Pharmacy #[id number], [address] [place], [address], 11/29/2023 16:05:50 clotrimaz ole-betam ethasone 1 %-0.05 % topical cream 2023 024 [facility]/Pharmacy #[id number], [address] [place], [address], 11/03/2023 12:17:27 Patient TargetsNo targets recorded. Patient Instructions Encounter Date Encounter Id Patient Instructions Last Modified By Organization Details Last Modified Time 11/03/2023 [id number] Left ear with chronic dampness. Found last month to be fungal in nature. Patient previously intolerant of clotrimazole due to pain on instilling due to tympanic membrane perforation. Today the ear was filled with Lotrisone and a prescription for the same was submitted to pharmacy. Bring upopened tube to visit next week and we will suction the ear and instill fresh cream. Discussed we will need at least 2 rounds of this treatment, and possibly 3-4. Continue dry ear precautions bilaterally. [email or web address] Not available 11/03/2023 15:32:45 Reason for Referral None Reported. Results Created Date Observation Date Name Description Value Unit Range Abnormal Flag Note LastModifiedBy Organization Detail LastModifiedTime 02/01/20 24 07/29/2022 imagi ng/di agnos tic resul t No observ ation record ed. [email or web address] Not Available 04:05:46 02/01/20 24 08/09/2018 imagi ng/di agnos tic resul t No observ ation record ed. [email or web address] Not Available 04:05:51 02/01/20 24 03/16/2022 imagi ng/di agnos tic resul t No observ ation record ed. [email or web address] Not Available 04:06:35 Result Notes None recorded. Problems Name Problem SNOMED Code Status Onset Date Resolution Date Notes Provider Name and Address Organization Details Recorded Time Headache 01502610 Active 2018 Facial pain NOS; Note: Date Diagnose d: 9 2:54 PM (R51) Not Available [facility] 4 02:53:44 Eczema NOS Active 2016 Eczema NOS; Note: Date Diagnose d: 05/12/20 17 4:20 PM (L30.9) Not Available [facility] 4 02:53:42 Dysphagi a 52833521 Active 2016 Dysphagi a, unspecif ied; Note: Date Diagnose d: 05/12/20 17 4:27 PM (R13.10) Not Available [facility] 4 02:53:43 Dizzines s and giddines s 632945900 Active 2016 Dizzines s and giddines s; Note: Date Diagnose d: 7 12:36 PM (R42) Not Available [facility] 4 02:53:47 Bilatera l earache 835178018 Active 2016 Otalgia, bilatera l; Note: Date Diagnose d: 04/12/20 17 3:29 PM (H92.03) Not Available [facility] 4 02:53:46 Otitis externa of bilatera l ears 76311013826 32400 Completed 201601/13/2024 Other otitis externa, bilatera l; Note: Date Diagnose d: 7 12:35 PM (H60.8X3 ) Not Available [facility] 4 02:53:47 Impacted cerumen of bilatera l ears 94022939424 62553 Active 2022 Impacted cerumen, bilatera l; Note: Date Diagnose d: 3 3:33 PM (H61.23) Not Available [facility] 4 02:53:48 Bilatera l tympanic membrane central perforat ion 00439398840 36509 Active 2020 Central perforat ion of tympanic membrane , bilatera l; Note: Date Diagnose d: 1 3:12 PM (H72.02) Not Available [facility] 4 02:53:44 Mixed 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, bilatera l 314537238 Active 2016 Mixed 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, bilatera l; Note: Date Diagnose d: 7 11:53 AM (H90.6) Not Available [facility] 4 02:53:43 Bilatera l disorder of Eustachi an tubes 56175918364 40101 Active 2016 Other specifie d disorder s of Eustachi an tube, bilatera l; Note: Date Diagnose d: 7 12:35 PM (H69.83) Not Available [facility] 4 02:53:45 Otalgia of left ear 8338547357 Active 2020 Otalgia, left ear; Note: Date Diagnose d: 03/27/20 21 10:35 AM (H92.02) Not Available [facility] 4 02:53:44 Diffuse otitis externa 60541891 Active 2020 Diffuse otitis externa, left ear; Note: Date Diagnose d: 09/18/2020 3:45 PM (H60.312 ) Not Available [facility] 4 02:53:46 Nasal congesti on 62635173 Active 2016 Nasal congesti on; Note: Date Diagnose d: 04/12/20 17 3:28 PM (R09.81) Not Available [facility] 4 02:53:46 Chronic pharyngi tis 162020 Active 2016 Chronic sore throat; Note: Date Diagnose d: 05/12/20 17 4:24 PM (J31.2) Not Available [facility] 4 02:53:43 Pain of left temporom andibula r joint 48456104672 602110 Active 2020 Arthralg ia of left temporom andibula r joint; Note: Date Diagnose d: 03/27/20 21 10:35 AM (M26.622 ) Not Available [facility] 4 02:53:45 Allergic rhinitis 85144344 Active 2018 Other allergic rhinitis ; Note: Date Diagnose d: 9 2:55 PM (J30.89) Not Available [facility] 4 02:53:47 Otalgia 73025697 Active 2020 Otalgia; Note: Date Diagnose d: 03/27/20 21 10:33 AM (388.70) Not Available [facility] 4 02:53:44 Acute infectiv e otitis externa 502265068 Active 2023 LUCA VARGAS PA-C [address] [place] [address], [place], [address] , [facility] - [facility] 4 12:08:57 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 LUCA VARGAS PA-C [address] [facility],[place] [address], [place], [address] , [place] - [facility] 4 12:09:27 Chronic mycotic otitis externa 032053229 Active 2023 LUCA VARGAS PA-C [address] [facility],[place] [address], [place], [address] , [facility] - [facility] 4 12:09:27 Candidal otitis externa 33092687 Active 2023 LUCA VARGAS PA-C [address] [place] [address],[place] [address], [place], [address] , [place] - [facility] 4 12:09:27 Bilatera l perforat ion of tympanic membrane s 67806080973 98510 Active 2023 LUCA VARGAS PA-C [address] [facility],[place] [address], [place], [address] , [place] - [facility] 4 12:10:39 Cellulit is of face 060128619 Active 2023 KUSUM BARTLETT PA-C [address] [facility],[place] [address], [place], [address] , [place] - [facility] 4 13:49:33 Otorrhea of left ear 56901349229 68184 Active 2023 Otorrhea , left ear; Note: Date Diagnose d: 09/14/2023 3:39 PM (H92.12) Not Available [facility] 4 02:53:47 Problem Notes None recorded. Procedures Surgical History Date Name Laterality Status Provider Name and Address Organization Details Recorded Time 05/29/20 24 Cerumen removal with microscope bilateral completed RAYNA GAY MD [address] [facility],[place] [address], [place], [address], [place] - [facility] 05/29/2024 13:41:27 05/31/20 24 Cerumen removal without microscope right completed KUSUM BARTLETT PA-C [address] [place] [address],[address], [address], [facility] - [facility] 11/11/2023 13:46:54 Carpal tunnel surgery completed Sunil Bermeo [place] - [facility] 11/03/2023 11:50:12 cholecystectomy completed Sunil Bermeo [place] [facility] 11/03/2023 11:50:21 Imaging Results Imaging Date Name Status [facility] Details LastModified Time 07/29/2022 imaging/diag nostic result completed Information not available 02/01/2024 04:05:46 08/09/2018 imaging/diag nostic result completed Information not available 02/01/2024 04:05:51 03/16/2022 imaging/diag nostic result completed Information not available 02/01/2024 04:06:35 Procedure Notes None recorded. Medical Equipment None Reported. Allergies Allergen ID Allergen Name Allergen Category Reaction Reaction Severity Criticality Documentation Date Start Date Code Code System Note Provider Name and Address Organization Details Recorded Time 18234 celecoxib medicatio n other Not available Not available 10/25/2023 23078 7 RxNorm React ion: unkno wn, unspe cifie d;; Not Available [facility] 4 00:49:36 56131 pregabali n medicatio n other Not available Not available 10/25/2023 47002 2 RxNorm React ion: unkno wn, unspe cifie d;; Not Available [facility] 4 00:49:49 Medications Name Sig Start Date Stop Date Status Note LastModified by Organization Details LastModified Time amoxicill in 500 mg capsule TOME 1 C PSULA ORALLY EVERY 12 HOURS FOR 7 DAYS 11/28 completed Not Available Not Available Not Available neomycin- polymyxin -hydrocor t 3.5 mg/mL-10, 000 unit/mL-1 % ear solution 01/10 completed Medicati on ID: [id number] D uration Value: 10 Reason: () Brand Name: neomycin -polymyx in-HC Se nd Method: E-Prescr ibed Sub s Allowed: subs OK Speci al Instruct ion: PLACE 3 DROPS THREE TIMES A DAY TO AFFECTED EAR (S) X 10 DAYS Med icationG enericNa me: neomycin -polymyx in-HC Not Available Not Available Not Available doxycycli ne hyclate 100 mg capsule TOME FATMATA CAP POR V A ORAL DOS VECES AL D A CON ALIMENTO CON AGUA 11/28 completed Not Available Not Available Not Available ciproflox acin 750 mg tablet TOME 1 TABLETA POR V A ORAL CADA 12 HORAS POR 10 D 11/28 completed Not Available Not Available Not Available acitretin 10 mg capsule 01/10 completed Medicati on ID: [id number] D uration Value: 30 Reason: () Brand Name: jaymie n Send Method: E-Prescr ibed Sub s Allowed: subs OK Medic ationGen ericName : acitreti n Not Available Not Available Not Available fluconazo le 150 mg tablet PLEASE SEE ATTACHED FOR DETAILED DIRECTIO NS active Not Available Not Available No t Available Senna Lax 8.6 mg tablet 2016 active Medicati on ID: [id number] D uration Value: 30 Brand Name: Senna Lax Send Method: E-Prescr ibed Sub s Allowed: subs OK Speci al Instruct ion: TOME 1 O 2 TABLETAS POR VIA ORAL TODOS LOS BAKER CUANDO SEA NECESARI O F OR CONSTIPA TION Med icationG enericNa me: Senna Lax Not Available Not Available Not Available clotrimaz ole-betam ethasone 1 %-0.05 % lotion a small amount to affected area 2016 active Medicati on ID: [id number] D uration Value: 14 Prescri bed By Name: Minda barger MD Brand Name: clotrima zole-bet amethaso ne Send Method: E-Prescr ibed Sub s Allowed: subs OK Speci al Instruct ion: Apply with finger to ear canal skin. Me dication GenericN luciano: clotrima zole-bet amethaso ne Not Available Not Available Not Available Fiber Laxative (calcium polycarbo hansel) 625 mg tablet 01/10 completed Medicati on ID: [id number] D uration Value: 30 Reason: () Brand Name: Fiber Laxative (ca polycarb o) Send Method: E-Prescr ibed Sub s Allowed: subs OK Speci al Instruct ion: TAKE 1-2 CAPSULES TWICE A DAY ORALLY 30 DAYS Med icationG enericNa me: Fiber Laxative (ca polycarb o) Not Available Not Available Not Available sumatript an 25 mg tablet 2018 active Medicati on ID: [id number] D uration Value: 30 Brand Name: sumatrip moran succinat e Send Method: E-Prescr ibed Sub s Allowed: subs OK Medic ationGen ericName : sumatrip moran succinat e Not Available Not Available Not Available famotidin e 40 mg tablet TOME FATMATA TABLETA TODOS LOS D AL ACOSTARS E active Not Available Not Available No t Available prednison e 20 mg tablet 01/10 completed Medicati on ID: [id number] D uration Value: 9 Reason: () Brand Name: predniso ne Send Method: E-Prescr ibed Sub s Allowed: subs OK Speci al Instruct ion: TOME FERNANDO TABLETAS POR VIA ORAL TODOS LOS BAKER FOR 3 DAYS,2 TABS X3DAY S,1 TAB X3 DAYS THEN STOP Med icationG enericNa me: predniso ne Not Available Not Available Not Available metronida zole 500 mg tablet TOME FATMATA TABLETA FERNANDO VECES AL D A active Not Available Not Available No t Available aspirin 81 mg tablet,de layed release TOME 1 TABLETA POR V A ORAL TODOS LOS D active Not Available Not Available No t Available ofloxacin 0.3 % ear drops Instill 5 drop into left ear twice a day active Medicati on ID: [id number] D uration Value: 10 Prescri bed By Name: SESAR Deluca nd Name: ofloxaci n Send Method: E-Prescr ibed Sub s Allowed: subs OK Medic ationGen ericName : ofloxaci n Not Available Not Available Not Available Gas Relief (simethic one) 125 mg capsule 01/10 completed Medicati on ID: [id number] D uration Value: 30 Reason: () Brand Name: Gas Relief S end Method: E-Prescr ibed Sub s Allowed: subs OK Speci al Instruct ion: TOME FATMATA CAPSULA POR VIA ORAL DOS VECES AL CAT CUANDO SEA NECESARI O Medica tionGene ricName: Gas Relief Not Available Not Available Not Available Vitamin C 1,000 mg tablet 2016 active Medicati on ID: [id number] D uration Value: 30 Brand Name: Vitamin C Send Method: E-Prescr ibed Sub s Allowed: subs OK Speci al Instruct ion: TOME FATMATA TABLETA POR VIA ORAL TODOS LOS BAKER Med icationG enericNa me: Vitamin C Not Available Not Available Not Available metoclopr amide 5 mg tablet TOME FATMATA TABLETA ORALLY 4 TIMES A DAY BEFORE MEAL/BED active Not Available Not Available No t Available calcium 500 mg (as calcium carbonate 1,250 mg) tablet TOME 1 TABLETA POR V A ORAL DOS VECES AL D A active Not Available Not Available No t Available triamcino lone acetonide 0.025 % topical cream APPLY 1 APPLICAT ION TOPICALL Y 2 TIMES A DAY FOR 2 WEEKS active Not Available Not Available No t Available baclofen 10 mg tablet 2020 active Medicati on ID: [id number] B rand Name: baclofen Send Method: E-Prescr ibed Sub s Allowed: subs OK Speci al Instruct ion: TOME FATMATA TABLETA POR V A ORAL CADA OCHO HORAS PARA EL ESPASMO MUSCULAR CUANDO SEA NECESARI O Medica tionGene ricName: baclofen Not Available Not Available Not Available benzonata te 100 mg capsule 01/10 completed Medicati on ID: [id number] D uration Value: 10 Reason: () Brand Name: benzonat ate Send Method: E-Prescr ibed Sub s Allowed: subs OK Medic ationGen ericName : benzonat ate Not Available Not Available Not Available gemfibroz il 600 mg tablet 2018 active Medicati on ID: [id number] D uration Value: 30 Brand Name: gemfibro zil Send Method: E-Prescr ibed Sub s Allowed: subs OK Speci al Instruct ion: TOME FATMATA TABLETA DOS VECES AL D?A Medi cationGe nericNam e: gemfibro zil Not Available Not Available Not Available tacrolimu s 0.1 % topical ointment APPLY TO AFFECTED AREA TWICE DAILY ALTERNAT ING WITH TOPICAL STEROID active Not Available Not Available No t Available ferrous sulfate 325 mg (65 mg iron) tablet 2020 active Medicati on ID: [id number] B rand Name: ferrous sulfate Send Method: E-Prescr ibed Sub s Allowed: subs OK Speci al Instruct ion: TOME FATMATA TABLETA POR V A ORAL TODOS LOS D Medic ationGen ericName : ferrous sulfate Not Available Not Available Not Available esomepraz ole magnesium 40 mg capsule,d elayed release TOME FATMATA C PSULA TODOS LOS D active Not Available Not Available No t Available clotrimaz ole-betam ethasone 1 %-0.05 % topical cream BRING UNOPENED TUBE TO APPOINTM ENT. 2024 active Not Available Not Available Not Avai lable polymyxin B sulfate 10,000 unit-trim ethoprim 1 mg/mL eye drops 01/10 completed Medicati on ID: [id number] D uration Value: 10 Reason: () Brand Name: polymyxi n B sulf-tri methopri m Send Method: E-Prescr ibed Sub s Allowed: subs OK Speci al Instruct ion: PONGA FATMATA GOTA AMBOS OIDOS DOS VECES AL CAT POR 7 BAKER Med icationG enericNa me: polymyxi n B sulf-tri methopri m Not Available Not Available Not Available clotrimaz ole 1 % topical solution Apply 11/02 completed Medicati on ID: [id number] D uration Value: 14 Prescri bed By Name: SESAR Roman nd Name: clotrima zolleena [place] Method: E-Prescr ibed Sub s Allowed: subs OK Speci al Instruct ion: 4 drops to both ears BID x 2 weeks Me dication GenericN luciano: clotrima zole Med ication ID: [id number] D uration Value: 14 Prescri bed By Name: SESAR Roman nd Name: clotrima zole Douglas [place] Method: E-Prescr ibed Sub s Allowed: subs OK Speci al Instruct ion: 4 drops to both ears BID x 2 weeks Me dication GenericN luciano: clotrima zole Not Available Not Available Not Available docusate sodium 100 mg capsule TAKE 1 CAPSULE ORALLY 3 TIMES A DAY active Not Available Not Available No t Available gabapenti n 300 mg capsule 2016 active Medicati on ID: [id number] D uration Value: 30 Brand Name: gabapent in Send Method: E-Prescr ibed Sub s Allowed: subs OK Speci al Instruct ion: TOME FATMATA CAPSULA TODOS LOS BAKER Med icationG enericNa me: gabapent in Not Available Not Available Not Available omeprazol e 20 mg capsule,d elayed release 2016 active Medicati on ID: [id number] D uration Value: 30 Brand Name: omeprazo le Send Method: E-Prescr ibed Sub s Allowed: subs OK Speci al Instruct ion: TOME FATMATA CAPSULA POR VIA ORAL DOS VECES AL CAT 30 MINUTES PRIOR TO PEDRO LUIS AKFAST/D INNER Me dication GenericN luciano: omeprazo le Not Available Not Available Not Available alclometa sone 0.05 % topical ointment APPLY TO FACE TWICE A DAY NEEDED FOR FLARES, DECREASE TO DAILY OR EVERY OTHER SYMPTOMS IMPROVE active Not Available Not Available No t Available estradiol 0.01% (0.1 mg/gram) vaginal cream APPLY PEA SIZED AMOUNT TO URETHRA 3 TIMES A WEEK FOR 30 DAYS active Not Available Not Available No t Available betametha sone dipropion ate 0.05 % topical ointment APPLY TO ARMS, HANDS, LEGS TWICE DAILY NEEDED FOR FLARES active Not Available Not Available No t Available ondansetr on 4 mg disintegr ating tablet TOME FATMATA TABLETA POR V A ORAL CADA SEIS A OCHO HORAS CUANDO SEA NECESARI O PARA LAS N USEAS Y V MITOS active Not Available Not Available No t Available loratadin e 10 mg tablet TOME FATMATA TABLETA ORALLY DAILY FOR 90 DAYS active Not Available Not Available No t Available amoxicill in 875 mg-potass ium clavulana te 125 mg tablet TOME 1 TABLETA POR V A ORAL DOS VECES AL D A 11/28 completed Not Available Not Available Not Available Mapap Arthritis Pain 650 mg tablet,ex tended release 2016 active Medicati on ID: [id number] D uration Value: 5 Brand Name: Mapap Arthriti s Pain Sen d Method: E-Prescr ibed Sub s Allowed: subs OK Speci al Instruct ion: TOME DOS TABLETAS POR VIA ORAL CADA OCHO HORAS CUANDO SEA NECESARI O PA RA EL DOLOR Me dication GenericN luciano: Mapap Arthriti s Pain Not Available Not Available Not Available Vitamin D3 25 mcg (1,000 unit) capsule 2016 active Medicati on ID: [id number] D uration Value: 30 Brand Name: Vitamin D3 Send Method: E-Prescr ibed Sub s Allowed: subs OK Speci al Instruct ion: ---NOT COVERED- --TOME FATMATA CAPSULA POR VIA ORAL TODOS LOS BAKER Med icationG enericNa me: Vitamin D3 Not Available Not Available Not Available Ciprodex 0.3 %-0.1 % ear drops,loyda pension Instill 4 drop into both ears twice a day as directed 2021 active Medicati on ID: [id number] D uration Value: 14 Brand Name: Ciprodex Send Method: E-Prescr ibed Sub s Allowed: subs OK Speci al Instruct ion: x 14 days Med icationG enericNa me: Ciprodex Not Available Not Available Not Available rosuvasta tin 20 mg tablet 01/10 completed Medicati on ID: [id number] D uration Value: 30 Reason: () Brand Name: rosuvast atin Sen d Method: E-Prescr ibed Sub s Allowed: subs OK Speci al Instruct ion: TOME FATMATA TABLETA TODOS LOS BAKER Med icationG enericNa me: rosuvast atin Not Available Not Available Not Available cranberry extract 500 mg capsule 2016 active Medicati on ID: [id number] D uration Value: 30 Brand Name: cranberr y extract Send Method: E-Prescr ibed Sub s Allowed: subs OK Speci al Instruct ion: TOME FATMATA CAPSULA POR VIA ORAL TODOS LOS BAKER SCOTT LO INDICADO Medicat ionGener icName: cranberr y extract Not Available Not Available Not Available Fiber Therapy (methylce llulose) 500 mg tablet 01/10 completed Medicati on ID: [id number] D uration Value: 30 Reason: () Brand Name: Fiber Therapy (m-cellu lose) Se nd Method: E-Prescr ibed Sub s Allowed: subs OK Speci al Instruct ion: TAKE 2 TABLETS BY MOUTH TWICE A DAY WITH A FULL GLASS OF WATER OR JUIC E Medica tionGene ricName: Fiber Therapy (m-cellu lose) Not Available Not Available Not Available duloxetin e 30 mg capsule,d elayed release 01/10 completed Medicati on ID: [id number] D uration Value: 30 Reason: () Brand Name: duloxeti ne Send Method: E-Prescr ibed Sub s Allowed: subs OK Speci al Instruct ion: TOME FATMATA CAPSULA POR VIA ORAL TODOS LOS BAKER Med icationG enericNa me: duloxeti ne Not Available Not Available Not Available ProAir HFA 90 mcg/actua tion aerosol inhaler 2 puff 2018 active Medicati on ID: [id number] D uration Value: 30 Brand Name: ProAir HFA Send Method: E-Prescr ibed Sub s Allowed: subs OK Medic ationGen ericName : ProAir HFA Not Available Not Available Not Available cholecalc iferol (vitamin D3) 25 mcg (1,000 unit) tablet TOME FATMATA TABLETA POR V A ORAL TODOS LOS D active Not Available Not Available No t Available cholecalc iferol (vitamin D3) 1,250 mcg (50,000 unit) capsule TOME 1 C PSULA POR V A ORAL WEEKLY FOR 90 DAYS active Not Available Not Available No t Available diclofena c 1 % topical gel APPLY 4 GRAMS TOPICALL Y 2 TIMES DAILY. active Not Available Not Available No t Available QNASL 80 mcg/actua tion nasal aerosol spray 2018 active Medicati on ID: [id number] D uration Value: 30 Brand Name: QNASL Se nd Method: E-Prescr ibed Sub s Allowed: subs OK Speci al Instruct ion: PUMP 2 SPRAYS INTO CADA VENTANIL LA DE LA NARIZ TODOS LOS D? AL ACOST ARSE Med icationG enericNa me: QNASL Not Available Not Available Not Available Linzess 145 mcg capsule TOME FATMATA C PSULA TODOS LOS D active Not Available Not Available No t Available Flonase Allergy Relief 50 mcg/actua tion nasal spray,loyda pension 2 puff into both nostrils 2018 active Medicati on ID: [id number] D uration Value: 120 Prescri bed By Name: Minda barger MD Brand Name: Flonase Allergy Relief S end Method: E-Prescr ibed Sub s Allowed: subs OK Medic ationGen ericName : Flonase Allergy Relief Not Available Not Available Not Available Trulance 3 mg tablet 2018 active Medicati on ID: [id number] D uration Value: 30 Brand Name: Trulance Send Method: E-Prescr ibed Sub s Allowed: subs OK Speci al Instruct ion: TOME FATMATA TABLETA POR V?A ORAL TODOS LOS D? Med icationG enericNa me: Trulance Not Available Not Available Not Available Vitals Date Recorded Body height Body mass index (BMI) Body weight Provider Name and Address Organization Details Last Updated DateTime 11/11/2023 154.94 cm 28.2 kg/m2 34545.26 g Sunil Bermeo [facility] 11/11/2023 13:07:26 Date Recorded Body height Body mass index (BMI) Body weight Provider Name and Address Organization Details Last Updated DateTime 05/29/2024 154.94 cm 28.3 kg/m2 04122.86 g Norm Burgess [facility] 05/29/2024 13:30:36 Social History None recorded. Functional Status None recorded. Mental Status None recorded. Family History Nothing Reported. Medical History No medical history recorded. Gynecological HistoryNo gynecological history recorded. Obstetrics History GPAL:G 0 P 0 0 0 0 Past Encounters Encounter ID Performer Location Encounter Start Date Encounter Closed Date Diagnosis/Indication Diagnosis SNOMED-CT Code Diagnosis ICD10 Code Diagnosis Note [id number] MINDA MAIER MD [facility] [address] [address] 11/03/2023 11:38:00 11/03/2023 12:34:18 Chronic mycotic otitis externa 142784173 H60.399 Previously found to be fungal via culture Bilateral perforation of tympanic membranes 2160451920 584906 H72.93 [id number] DAGO GODOY MD [facility] [address] [address] 11/11/2023 12:58:21 11/11/2023 13:33:03 Bilateral disorder of Eustachian tubes 8472793376 362789 H69.83 Bilateral perforation of tympanic membranes 1374921208 140806 H72.93 Cellulitis of face 2001 L03.211 [id number] RAYNA GAY MD [facility] [address] [place] [address] 11/29/2023 15:24:29 11/29/2023 16:27:24 Bilateral disorder of Eustachian tubes 2206980747 162776 H69.83 Bilateral tympanic membrane central perforation 3310351075 904260 H72.03 Mixed cond uctive and sensorineural hearing loss, bilateral 625640702 H90.6 [id number] RAYNA GAY MD [facility] [address] [address] 05/29/2024 13:13:55 05/29/2024 13:43:03 Bilateral disorder of Eustachian tubes 3894917166 649903 H69.83 Bilateral tympanic membrane central perforation 4082635745 798744 H72.03 Mixed cond uctive and sensorineural hearing loss, bilateral 151493522 H90.6 Dermal mycosis 91163681 B36.9 The skin of the {{right le ft bilater al*}} external auditory canal is showing signs of low-level fungal dermatitis . Recommend applicatio n of clotrimazo le/betamet hasone cream to be applied by fingertip to the external auditory meatus three times a day for two weeks. Patient may repeat this as necessary for recurrence of symptoms. Prescripti on sent to patient's pharmacy. Avoidance of Q-tips recommende d to reduce the risk of recurrence . Impacted c erumen of bilateral ears 3833732470 384944 H61.23 Health Concerns Section Related Observation LastModified by Organization Detai ls LastModified Time None Recorded Concern Status LastModified by Organization Details LastModified Time None Recorded Advance Directives Directive None Recorded Payers Encounter Date Sequence Insurance Name Policy Number Policy Munguia Covered Member ID Munguia Member ID Guarantor Name 11/03/2023 1 [facility] (MEDICAID HMO) MIGUEL Medley Ady [id number] Raquel Medley Ady 11/11/2023 1 [facility] (MEDICAID HMO) MIGUEL Medley Ady [id number] Raquel Medley Ady 11/29/2023 1 [facility] (MEDICAID HMO) MIGUEL Medley Ady [id number] Raquel Medley Ady 05/29/2024 1 [facility] (MEDICAID HMO) MIGUEL Medley Ady [id number] Raquel Garsia Notes Date Note Type Note Provider Name and Address Organization Details Recorded Time 11/03/2023 text/html 62 year old marie avelar presents with family member, who provides interpretation services and family declined professional dietary services director, for evaluation of the left ear. Patient reports she has not taken any drops since early September. The ear is very itchy and there is non-pulsatile tinnitus. No otalgia. There is a little dampness but no elmer otorrhea. Wearing her hearing aids every day. When she removes them she cleans with water and soap and a brush. LUCA VARGAS PA-C [address], [address], [facility] - [facility] 11/03/2023 15:33:16 11/11/2023 text/html 62-year-old marie avelar presents for reevaluation of left otitis externa. She has a longstanding history of ETD with bilateral perforation, larger in the left. She has been having some persistent drainage from the left side and was initially treated by her primary care with Augmentin, then by us with ofloxacin, and finally a Lotrisone injection when culture showed yeast. After the Lotrisone injection she had significant bleeding from the ear. She still has discomfort particularly behind the ear. DAGO GODOY MD 100 [facility],[address], [address], [facility] 11/11/2023 17:21:42 11/29/2023 text/html 63-year-old marie avelar with chronic history of ear disease who has been a patient in the office since 2017. She comes in today accompanied by her daughter who is helping to translate Persian. Patient recently had prolonged episode of left-sided otorrhea which was treated with a combination of antifungal and antibacterial's. Patient notes no further left-sided ear discharge. Patient did have some bleeding during treatment of the left ear which has since resolved. Patient currently using binaural amplification dispensed at [facility] audiology. She has bilateral mixed hearing loss. RAYNA GAY MD [address] [place] [address],[address], [address], [facility] 11/29/2023 17:21:59 05/29/2024 text/html 63-year-old marie avelar with chronic history of ear disease who has been a patient in the office since 2017. She has a 5% perforation of the right tympanic membrane and a 20% perforation of the left tympanic membrane which we are observing rather than repairing due to underlying eustachian tube dysfunction. She comes in today accompanied by her daughter who is helping to translate Persian. Patient currently using binaural amplification dispensed at [facility] audiology. She has bilateral mixed hearing loss. Patient comes in today for preventative ear cleaning. Patient comes in today accompanied by her daughter. She is helping to translate Persian. Patient reports itchiness in her ears. RAYNA GAY MD [address] [place] [address],[address], [address], [facility] 05/29/2024 13:42:11 OBGyn Episode No OBEpisode recorded.
== END 2024-07-31 13:31 | disposition home or self-care (01) ==
PROVIDERS: PCP Internal Medicine; Visit Provider Physician Assistant Surgical
DX: I83.11 Varicose veins of right lower extremity with inflammation (principal)
CPT/HCPCS: 99214

== ENCOUNTER → 2024-07-31 13:06 | Outpatient (BNVA) | payer OTHER, SELFPAY | PROVIDERS: PCP Internal Medicine; Visit Provider Physician Assistant Surgical | DX: I83.11 Varicose veins of right lower extremity with inflammation (principal) | CPT/HCPCS: 99212 ==

== ENCOUNTER 2024-08-21 15:45 | Outpatient (AMB) | payer OTHER, SELFPAY ==
[2024-08-21 15:46] VITALS: BP 100/64; PULSE 67; RESP 20; TEMP 37; O2SAT 97; BMI 28.6
--- NOTE | 2024-08-21 15:46 | MHC.PC.OV ---
Vital Signs 08/21/24 15:46 Height 5 ft 1 in Weight 151 lb 3.2 oz BMI 28.6 BP 100/64 Blood Pressure Location Lt brachial Position Sitting Respiration 20 Pulse 67 Pulse Source Pulse Oximeter Temp 98.6 F Temp Source Oral Pulse Oximetry (%) 97 Oxygen Delivery Method Room Air Intake Visit Reasons: Leg cramps/numb feet & hands Optical Sales Associate Required: Yes Optical Sales Associate Language: Latvian Accompanied by: Daughter Allergies griseofulvin [From Candie-PEG (ultramicrosize)] Allergy (Intermediate, Verified 08/21/24 16:09) Rash octopus Allergy (Intermediate, Verified 08/21/24 16:09) Hives pregabalin [From Lyrica] Allergy (Intermediate, Verified 08/21/24 16:09) LEethargy, dizziness celecoxib [From Celebrex] Adverse Reaction (Intermediate, Verified 08/21/24 16:09) Problems with Liver dicyclomine Adverse Reaction (Mild, Verified 08/21/24 16:09) stomach upset oxycodone [From Percocet] Adverse Reaction (Mild, Verified 08/21/24 16:09) Lethargy morphine Adverse Reaction (Verified 08/21/24 16:09) Unknown MANDARIN ORANGES Allergy (Severe, Uncoded 08/21/24 16:09) Lip Swelling, Hives PARMELEX Allergy (Intermediate, Uncoded 08/21/24 16:09) Problems with Liver Medication List - Last Reconciled 08/21/24 by JOSE ANGEL Low acetaminophen 1,000 mg PO BID PRN ascorbic acid (vitamin C) 1 g PO BID aspirin 81 mg PO DAILY betamethasone dipropionate 0.05% 0.05 appl topical DAILY calcium carbonate 500 mg PO BID 30 days cholecalciferol (vitamin D3) 1,250 mcg PO QWEEK 90 days coenzyme Q10 (H2Q CoQ10) 200 mg PO DAILY [cpap As directed] diclofenac sodium 1% topical loratadine 10 mg PO DAILY 90 days magnesium gluconate 1,000 mg PO BID omega 7-okx-yds-fish oil 1,000 (120-180) mg (Fish Oil) 1 cap PO DAILY tacrolimus 0.1% 0.1 appl topical DAILY triamcinolone acetonide 0.025% 1 appl topical BID 2 weeks Tobacco use date assessed: 08/21/24 Fall risk assessment: No Falls in past year Last assessed Fall Risk: 08/21/24 Dental Screening Dental Screen Date: 08/21/24 Did you have a dental visit in the last 12 months?: Yes Did you have a dental problem in the last 6 months where you did not have access to dental care?: No Was dental information given to patient?: Patient has dentist HPI Leg cramps/numb feet & hands HPI Details The patient is 63 year old female present with c/o leg cramps/numb, accompanied by her daughter The patient has chronic numbness and intermittent shooting pain Discussed with patient about gabapentin and the patient declined The patient c/o left ear pain and foul smelling fluids. Positive pain at the mastoid process area The patient wears bilateral hearing aide; bilateral ear perforation The patient reports this has been going on for over a week [facility] Medical History Hematuria Furuncle of buttock Abdominal pain Postmenopausal Muscle cramps Physical exam Fibromyalgia Gastroparesis Midline thoracic back pain Epigastric pain Allergic rhinitis Ingrown toenail of right foot Small bowel obstruction Dyspnea on exertion Elevated AST (SGOT) Nausea RUQ pain H. pylori infection Obesity (BMI 30-39.9) Neuropathy Hearing loss Tendonitis Hyperlipidemia Carpal tunnel syndrome Arthritis Fibromyalgia GRAYSON (obstructive sleep apnea) Iron deficiency anemia Normocytic anemia Surgical History History of esophagogastroduodenoscopy (EGD) Hx of colonoscopy History of endoscopy History of laparoscopic cholecystectomy History of varicose vein stripping Family history of lipoma History of left breast biopsy History of History of temporal artery biopsy History of carpal tunnel repair Family History Father Heart disease Diabetes Hypertension Mother Diabetes Hypertension Arthritis Fibromyalgia Osteoporosis Sister Breast cancer Social History Household Members: Family Housing: Apartment Alcohol intake: never Patient Tobacco Use Status: Never used Tobacco e-Cigarette/Vaping Use: Never Used Second Hand Smoke Exposure: No service: No 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al status: disabled 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 1. Little interest or pleasure in doing things: not at all 2. Feeling down, depressed, or hopeless: not at all 3. Trouble falling or staying asleep, or sleeping too much: not at all 4. Feeling tired or having little energy: not at all 5. Poor appetite or overeating: not at all 6. Feeling bad about yourself - or that you are a failure or have let yourself or your family down: not at all 7. Trouble concentrating on things, such as reading the newspaper or watching television: not at all 8. Moving or speaking so slowly that other people could have noticed. Or the opposite - being so fidgety or restless that you have been moving around a lot more than usual: not at all 9. Thoughts that you would be better off or of hurting yourself in some way: not at all Total score: 0 Depression Screening Interpretation: Negative Depression Screening Done: Yes 18715 - PHQ-9 Billing: Yes Source: Developed by Drs. Reynaldo Denson, Marcia Bennett, Lewis Sifuentes and colleagues, with an educational poonam from [employer]. Thrive Questionnaire Date Thrive assessed: 08/21/24 I am a: Patient What is your living situation today?: I have a steady place to live Within the past 12 months, did the food you bought not last and you didn't have the money to get more?: Never true Within the past 12 months, did you worry whether your food would run out before you got money to buy more?: Never true Do you have trouble paying for medicines?: No Do you have trouble getting transportation to medical appointments?: No Do you have trouble paying your heating and electricity bill?: No Do you have trouble taking care of your child, family member or friend?: No Do you have trouble with day-to-day activities such as bathing, preparing meals, shopping, managing finances, etc.?: No Are you currently unemployed and looking for a job?: No Are you interested in more education?: No Please select the resources that you would like help with: None Currently or been in a relationship where the following occur: No concerns reported THRIVE Score: 0 AUDIT C Alcohol Use Questionnaire (AUDIT-C) 1. How often do you have a drink containing alcohol?: Never Total Score: 0 SUMMER-7 AMB Questionnaire SUMMER-7 Date SUMMER - 7 assessed: 08/21/24 Feeling nervous, anxious, or on edge: 0 = Not at all Not being able to stop or control worryin = Not at all Worrying too much about different things: 0 = Not at all Trouble relaxin = Not at all Being so restless that it is hard to sit still: 0 = Not at all Becoming easily annoyed or irritable: 0 = Not at all Feeling afraid as if something awful might happen: 0 = Not at all Total SUMMER-7 score (0-4 normal; 5-9 mild; 10-14 moderate; 15-21 severe): 0 Source: Developed by Drs. Reynaldo Denson, Marcia Bennett, Lewis Sifuentes and colleagues, with an educational poonam from [employer]. SUMMER-7 Assessment Billing SUMMER-7 Assessment Tool: SUMMER-7 Assessment 02893 Review of Systems Const Denies headache(s) Eyes Denies loss of vision ENT Denies vertigo, Denies dizziness, Reports ear discharge (left ear, foul smelling drainage), Reports otalgia (left mastoid area), Denies headache(s), Reports hearing loss (bilateral earing aide) and Denies sore throat Card Denies chest pain, Denies leg edema and Denies lightheadedness Resp Denies cough, Denies hemoptysis and Denies wheezing GI Denies abdominal pain, Denies melena, Denies constipation, Denies diarrhea and Denies vomiting Denies urinary frequency, Denies dysuria and Denies urinary urgency Musc Reports arthralgias (right wrist), Denies joint swelling, Reports muscle cramps (lower legs), Reports numbness and Reports tingling Neuro Denies Abnormal speech present, Denies behavioral changes, Denies vertigo, Denies dizziness, Denies headache(s), Denies loss of vision, Denies memory loss, Reports numbness and Reports tingling Psych Denies anxiety, Denies behavioral changes, Denies depression, Denies memory loss and Denies panic attacks Sagar/Lymph Denies easy bleeding and Denies easy bruising Aller/Immun Denies wheezing Physical exam (Primary Care) Vital Signs: Last Vital Signs Temp 98.6 F 08/21/24 15:46 Pulse 67 08/21/24 15:46 Resp 20 08/21/24 15:46 BP 100/64 08/21/24 15:46 Pulse Ox 97 08/21/24 15:46 Oxygen Delivery Method Room Air 08/21/24 15:46 BMI result Body Mass Index 28.6 Tobacco/Smoking Status: Tobacco use Status Tobacco use date assessed 08/21/24 08/21/24 16:01 Patient Tobacco Use Status Never used Tobacco 08/21/24 16:01 e-Cigarette/Vaping Use Never Used 08/21/24 16:01 PHQ-9: PHQ-9 Score PHQ-9: Total score 0 08/21/24 16:12 Depression Screening Interpretation: Negative Thrive Assessment: Date of Thrive Assessment Date Thrive assessed 08/21/24 08/21/24 16:01 Currently or been in a relationship where the following occur: No concerns reported Const General: healthy appearing, no acute distress, alert and awake Nutritional Appearance: well nourished Orientation/consciousness: oriented to person, oriented to place and oriented to time HENMT Ears: mastoid abnormal (pain to the left area) and TM abnormal perforated General nose exam: Normal nasal mucous membranes and turbinates present Eyes Conjunctivae: conjunctivae normal Sclerae: sclerae normal Pupils: Equal, round and reactive pupils present Neck Neck: Yes no lymphadenopathy and Yes no JVD Thyroid: Thyroid normal Carotids: no bruits Resp Effort & Inspection: normal respiratory effort and not tachypneic Auscultation: no crackles, no rales, no rhonchi and no wheezes Cardio Rate: regular rate Rhythm: regular rhythm Heart sounds: no murmurs and normal S1 and S2 GI Palpation (GI): Soft to palpation, nontender, no hepatomegaly and no splenomegaly Auscultation: normal bowel sounds Skin General skin exam: no rashes or lesions noted and dry skin Neuro General: oriented to person, oriented to place and oriented to time Cranial nerves: Yes Equal, round and reactive pupils present Speech: No Abnormal speech present Gait exam (Neuro): Normal gait present Motor exam (neuro): no tremor noted Extrem Right upper extremity: full ROM and wrist Details: tenderness Left upper extremity: full ROM and wrist Right lower extremity: full ROM and lower leg Details: tenderness; no edema Left lower extremity: full ROM and lower leg Details: tenderness; no edema Psych Mental Status: mental status grossly normal Speech and movement: Normal speech and movement present Affect: normal affect Attitude: cooperative Thought process: Normal thought process present Coding Level of Care Code Est Pt Level 3 (10751) Diagnoses Left otitis media, unspecified otitis media type H66.92 Otitis media type: unspecified Varicose veins of right lower extremity with inflammation I83.11 Additional Codes SUMMER-7 Assessment Billing - SUMMER-7 Assessment Tool: SUMMER-7 Assessment 83397 ([id number]) PHQ-9 - 42850 - PHQ-9 Billing: Yes ([id number]) Time Spent (min) 31 Assessment & Plan Assessment & Plan (1) Left otitis media: Code(s): H66.92 - Otitis media, unspecified, left ear Category: Medical Qualifiers: Otitis media type: unspecified Qualified Code(s): H66.92 - Otitis media, unspecified, left ear Plan: Augmentin BID x 10 days ordered Follow up if symptoms worsens or not relenting (2) Varicose veins of right lower extremity with inflammation: Code(s): I83.11 - Varicose veins of right lower extremity with inflammation Category: Medical Plan: The patient c/o chronic bilateral leg pain. She was already referred to vascular. Discussed with the patient about starting gabapentin and the patient declined. Plan The patient reports that she has not had blood work done in a while. Labs ordered Orders: Orders Complete Blood Count Auto Diff 08/22/24 D50.9 - Iron deficiency anemia, unspecified, D64.9 - Anemia, unspecified, R20.0 - Anesthesia of skin, R20.2 - Paresthesia of skin, R25.2 - Cramp and spasm Lipid Panel 08/22/24 D50.9 - Iron deficiency anemia, unspecified, D64.9 - Anemia, unspecified, R20.0 - Anesthesia of skin, R20.2 - Paresthesia of skin, R25.2 - Cramp and spasm Vitamin B12 and Folate 08/22/24 D50.9 - Iron deficiency anemia, unspecified, D64.9 - Anemia, unspecified, R20.0 - Anesthesia of skin, R20.2 - Paresthesia of skin, R25.2 - Cramp and spasm TSH reflex Free T4 08/22/24 D50.9 - Iron deficiency anemia, unspecified, D64.9 - Anemia, unspecified, R20.0 - Anesthesia of skin, R20.2 - Paresthesia of skin, R25.2 - Cramp and spasm Magnesium 08/22/24 R25.2 - Cramp and spasm Comprehensive Queen. Panel Fast 08/22/24 D50.9 - Iron deficiency anemia, unspecified, D64.9 - Anemia, unspecified, R20.0 - Anesthesia of skin, R20.2 - Paresthesia of skin, R25.2 - Cramp and spasm Vitamin D 25-OH Total 08/22/24 D50.9 - Iron deficiency anemia, unspecified, D64.9 - Anemia, unspecified, R20.0 - Anesthesia of skin, R20.2 - Paresthesia of skin, R25.2 - Cramp and spasm UA CC w/rflx Micro + Cult 08/22/24 D50.9 - Iron deficiency anemia, unspecified, D64.9 - Anemia, unspecified, R20.0 - Anesthesia of skin, R20.2 - Paresthesia of skin, R25.2 - Cramp and spasm IRON PROFILE 08/22/24 D50.9 - Iron deficiency anemia, unspecified US abdomen limited 08/21/24 R19.8 - Other specified symptoms and signs involving the digestive system and abdomen Medications: New amoxicillin-pot clavulanate 875-125 mg 1 tab PO BID 10 days 20 tabs 0RF H66.92 - Otitis media, unspecified, left ear
--- OUTSIDE RECORDS SUMMARY | 2024-08-21 19:04 | XMS_ITS | Encounter Summary ---
Author Organization [facility] Address [address] [place] [address] Care Team Providers Care Universal Grinder Set Up Operator Name Role Phone Julia Oviedo MD Primary Care Provider [phone] Encounter Details Date Type Department Care Team (Late Contact Info) Description 07/17/2024 Telephone Orthopedic Surgery - [place] [address] [phone] Vijay Powell DPM [address] [address] Social History Tobacco Use Types Packs/Day Years [...] back to discuss surgery date and time [phone] documented in this encounter Plan of Treatment Upcoming Encounters Date Type Department Care Team (Late Contact Info) Description 08/31/2024 7:30 AM EDT Hospital Encounter [facility] [place] [address] [place] [phone] Vijay Powell DPM [address] [address] 08/31/2024 7:30 AM EDT - 08/31/2024 9:00 AM EDT Surgery [facility] [place] [address] [place] [phone] Vijay Powell, DPM 175 [facility] [address] [place] [address] EXCISION LESION SOFT TISSUE RIGHT FOOT [[id number] (CPT??)] Scheduled Procedures Name Priority Associated Diagnoses Date/Ti me EXCISION LESION SOFT TISSUE FOOT Other bursal cyst, right ankle and foot 08/31/2024 7:30 AM EDT documented as of this encounter Visit Diagnoses Not on filedocumented in this encounter Care Teams Universal Grinder Set Up Operator Relationship Specialty Start Date End Date Julia Oviedo MD [address] [place] [address] , [address] [facility] D/B/A: [facility] [place], [place] PCP - General 08/02/23 documented as of this encounter
--- OUTSIDE RECORDS SUMMARY | 2024-08-21 19:04 | XMS_ITS | Encounter Summary ---
Author Organization [facility] Address [address] [place] [address] Care Team Providers Care Materials Management Supervisor Name Role Phone Julia Oviedo MD Primary Care Provider [phone] Reason for Visit * Reason Onset Date Comments Medicaiton questions 08/01/2024 Encounter Details Date Type Department Care Team (Late st Contact Info) Description 08/01/2024 Telephone Orthopedic Surgery - [place] [address] [address] Vijay Powell DPM [address] [address] Medicaiton questions Social History Tobacco Use Types Packs/Day Years Used Date Smoking Tobacco: Never Assessed Comments Unknown Sex and Gender Information Value Date Recorded Sex Assigned at Not on file Legal Sex Female 10:48 PM EST Gender Identity Not on file Sexual Orientation Not on file documented as of this encounter Progress Notes * Sagrario Macdonald - 08/13/2024 9:34 AM EST Patient's daughter called back she is aware of Dr Powell's message. * Sagrario Macdonald - 08/01/2024 2:47 PM EST Mariama, patient's daughter is calling on behalf of her mother, she was advised by Pre OP Assessment, to check with Dr Powell regarding how many days prior to her Surgery she needs to take stop taking her Baby Aspirin 81 mg, and is this being done under Local or General Anesthsia. Please call Mariama @ [phone] . Thanks documented in this encounter Plan of Treatment Upcoming Encounters Date Type Department Care Team (Late st Contact Info) Description 08/31/2024 7:30 AM EDT Hospital Encounter [facility] Main OR [address] [place] [phone] Vijay Powell DPM [address] [address] 08/31/2024 7:30 AM EDT - 08/31/2024 9:[address] [facility] [place] [address] [place] [phone] Vijay Powell DPM [address] [address] EXCISION LESION SOFT TISSUE RIGHT FOOT [63498 (CPT??)] Scheduled Procedures Name Priority Associated Diagnoses Date/Ti me EXCISION LESION SOFT TISSUE FOOT Other bursal cyst, right ankle and foot 08/31/2024 7:30 AM EDT documented as of this encounter Visit Diagnoses Not on filedocumented in this encounter Care Teams Materials Management Supervisor Relationship Specialty Start Date End Date Julia Oviedo MD [address] [place] [address] , [facility] [address] [facility] D/B/A: [facility] [place], [place] PCP - General 08/02/23 documented as of this encounter
--- OUTSIDE RECORDS SUMMARY | 2024-08-21 19:04 | XMS_ITS | Clinical Summary ---
Author Organization [facility] Address [address] [place] [address] Phone Care Team Providers Care Jitterbug Operator Name Role Phone Julia Oviedo MD Primary Care Provider [phone] Allergies Active Allergy Reactions Criticality Noted Date Comments Celecoxib 10/07/2016 Dicyclomine 10/07/2016 Griseofulvin Microsize 10/07/2016 Morphine 10/03/2023 Nortriptyline 10/07/2016 Other 10/07/2016 Oxycodone 10/07/2016 Pregabalin 10/07/2016 Rosuvastatin Calcium 10/07/2016 Medications cholecalciferol (VITAMIN D-3) 25 mcg (1,000 unit) capsule Take 1 capsule (1,000 Units total) by mouth 1 (one) time each day. Active aspirin 81 mg chewable tablet Chew 1 tablet (81 mg total) 1 (one) time each day. Active loratadine (CLARITIN) 10 mg tablet Take 1 tablet (10 mg total) by mouth 1 (one) time each day. Active calcium carbonate (OYSTER SHELL CALCIUM 500 ORAL) Take 500 mg by mouth 1 (one) time each day. Active docosahexaenoic acid/epa (FISH OIL ORAL) Take 1,000 mg by mouth 1 (one) time each day. Active MAGNESIUM GLYCINATE ORAL Take 400 mg by mouth at bedtime. Active ascorbic acid (VITAMIN C) 1,000 mg tablet Take 1 tablet (1,000 mg total) by mouth 1 (one) time each day. Active coenzyme Q-10 100 mg capsule Take 1 capsule (100 mg total) by mouth 1 (one) time each day. Active GLYCINE ORAL Take 1,500 mg by mouth at bedtime. Active alclomethasone (ACLOVATE) 0.05 % ointment Apply topically 2 (two) times a day. Active betamethasone, augmented, (DIPROLENE-AF) 0.05 % cream Apply topically 2 (two) times a day. Active INV [id number] [id number] 3-1 gram packet Take 1 packet by mouth. Take ordered dose of [id number] as directed in the absence of the emergence of diarrhea or sustained nausea. To prepare, add one packet to 250 mL (8 oz) of room temp water, stir well, and drink within 60 minutes. Active albuterol HFA (PROAIR HFA ; PROVENTIL HFA ; VENTOLIN HFA) 90 mcg/actuation inhaler Inhale 2 puffs by mouth every 4 (four) hours if needed for wheezing or shortness of breath. 8 08/01/19 25 Discontin ued(Thera py completed ) amitriptyline HCl (AMITRIPTYLINE ORAL) Take by mouth. 08/01/19 25 Discontin ued(Thera py completed ) calcium carbonate/vitam in D3 (CALCIUM 500 + D ORAL) Take by mouth. 0 25 Discontin ued(Formu janice change) clindamycin phosphate 1 % gel, once daily Apply topically 2 (two) times a day. : Apply small amount on the face 8 08/01/19 25 Discontin ued(Thera py completed ) clobetasoL (TEMOVATE) 0.05 % ointment Apply topically. APLIQUE AL AREA AFECTADA DOS VECES AL CAT FOR 3 TO 4 WEEKS 8 08/01/19 25 Discontin ued(Thera py completed ) clotrimazole (LOTRIMIN) 1 % external solution Apply topically 2 (two) times a day. 08/01/19 25 Discontin ued(Thera py completed ) cranberry fruit concentrate 125 mg tablet,disinteg rating Take 125 mg by mouth. 08/01/19 25 Discontin ued(Thera py completed ) diclofenac (VOLTAREN) 1 % topical gel Apply 4 g topically 2 (two) times a day. 4 08/01/19 25 Discontin ued(Thera py completed ) DEXTRIN ORAL Take by mouth. 08/01/19 25 Discontin ued(Thera py completed ) GABAPENTIN ORAL Take by mouth. 08/01 25 Discontin ued(Side effects) gemfibroziL (LOPID) 600 mg tablet Take 1 tablet (600 mg total) by mouth 2 (two) times a day before meals. 08/01/19 25 Discontin ued(Thera py completed ) linaCLOtide (LINZESS) 145 mcg capsule Take 1 capsule (145 mcg total) by mouth. 08/01/19 25 Discontin ued(Thera py completed ) methotrexate 2.5 mg tablet Take 4 tablets (10 mg total) by mouth 1 (one) time per week For 30 days 8 08/01/19 25 Discontin ued(Thera py completed ) omeprazole (PriLOSEC) [address] capsule Take 2 capsules (20 mg total) by mouth 1 (one) time each day. 08/01/19 25 Discontin ued(Thera py completed ) oxymetazoline HCl (OXYMETAZOLINE OPHT) Administer into affected nostril(s). 08/01/19 25 Discontin ued(Thera py completed ) salicylic acid 40 % adhesive patch,medicated Apply 1 applicator topically 1 (one) time each day. 4 08/01/19 25 Discontin ued(Formu janice change) senna (SENOKOT) 8.6 mg tablet Take 1 tablet (8.6 mg total) by mouth 1 (one) time each day. 08/01/19 25 Discontin ued(Formu janice change) plecanatide (Trulance) 3 mg tablet Take by mouth. MARIEE FATMATA TABLETA POR V?A ORAL TODOS [place] 8 08/01/19 25 Discontin ued(Thera py completed ) Active Problems Problem Noted Date Diagnosed Date [...] Encounters Date Type Department Care Team Description 08/01/2024 Telephone Orthopedic Surgery [place] [address] [address] Vijay Powell, DPM Medicaiton questions 07/17/2024 Telephone Orthopedic Surgery [place] [address] [address] Vijay Powell, DPM from Last 3 Months Surgical History Surgery Date Site/Laterality Comments OTHER SURGICAL HISTORY CHOLECYSTECTOMY BREAST BIOPSY EAR BIOPSY CYST REMOVAL Left NECK CARPAL TUNNEL RELEASE Bilateral X3 SX ON RIGHT, X2 SX ON LEFT Medical History Medical History Date Comments Adverse effect of anesthesia NEW ES A LONG TIME TO WAKE UP Hyperlipidemia Sleep apnea HL (hearing loss) B ANN Dysphagia CHOKES SOMETIMES Liver disease [place] Hx of small bowel obstruction Gastroparesis GERD (gastroesophageal reflux disease) Constipation Anemia Clotting disorder (CMS/HCC) DTR STATES SHE HAS A LONG TIME TO STOP BLEEDING, NODX Chronic pain disorder F[place] IA, LOWERBACK, HEADACHE Chronic pain disorder Neuromuscular disorder (CMS/HCC) Arthritis Joint pain Social History Tobacco Use Types Packs/Day Years Used Date Smoking Tobacco: Never Assessed Comments Unknown Sex and Gender Information Value Date Recorded Sex Assigned at Not on file Legal Sex Female 10:48 PM EST Gender Identity Not on file Sexual Orientation Not on file Obstetrics History Last Filed Vital Signs Vital Sign Reading Time Taken Comments Blood Pressure - - Pulse - - Temperature - - Respiratory Rate - - Oxygen Saturation - - Inhaled Oxygen Concentration - - Weight 68 kg (150 lb) 08/01/2024 12:00 PM EST Height 154.9 cm (5' 1 ) 08/01/2024 12:00 PM EST Body Mass Index 28.34 08/01/2024 12:00 PM EST Plan of Treatment Upcoming Encounters Date Type Department Care Team (Late st Contact Info) Description 08/31/2024 7:30 AM EDT Hospital Encounter Main OR [address] [place] [phone] Vijay Powell DPM [address] [address] 08/31/2024 7:30 AM EDT - 08/31/2024 9:00 AM EDT Surgery Main OR [address] [place] [phone] Vijay Powell DPM [address] [address] EXCISION LESION SOFT TISSUE RIGHT FOOT [[address] (CPT??)] Scheduled Procedures Name Priority Associated Diagnoses Date/Ti me EXCISION LESION SOFT TISSUE FOOT Other bursal cyst, right ankle and foot 08/31/2024 7:30 AM EDT Health Maintenance Due Date Last Done Comments Breast Cancer Screening 1960 Pneumococcal Vaccine: 50+ Years (1 of 2 [...] 01/10/2024 Social Influencers of Health Screening 01/10/2024 COVID-19 Vaccine (1 - 2023-2 5 season) 2024 Influenza Vaccine (#1) 2024 05/04/2016 DTaP,Tdap,and Td [...] C Screening (10/07/2016) Hepatitis C Screening abstracted Historical Provider MD HEALTH MAINTENANCE Final Result from Last 3 Months or Most Recently Relevant to Health Maintenance Insurance [facility] [employer] Care Teams Jitterbug Operator Relationship Specialty Start Date End Date Julia Oviedo MD [address] [facility] , [address] [facility] D/B/A: [facility] GREGORIO Sahni PCP - General 08/02/23
--- OUTSIDE RECORDS SUMMARY | 2024-08-21 19:04 | XMS_ITS | Data Portability ---
Author Organization ID - [facility], Allergy Address [address] [address] Care Team Providers Care Jacquard Loom Card Changer Name Role Phone SUNIL LA Primary Care Provider Assessment Encounter Date Assessment Date Assessment LastModified by Organization Details LastModified Time 11/11/2023 11/11/2023 62-year-old fema valentino with significant eustachian tube dysfunction presents for [...] weeks for reevaluation. All questions were answered. [email or web address] Not available 11/11/2023 13:48:47 11/29/2023 11/29/2023 Left-sided [...] cleaning and maintenance to prevent future otorrhea. Not available 11/29/2023 16:27:20 05/29/2024 05/29/2024 Left-sided [...] cleaning and maintenance to prevent future otorrhea. Not available 05/28/2024 20:02:08 Plan of Treatment [...] 1 %-0.05 % topical cream 2023 024 [facility]/Pharmacy #[id number], [address] [place], [address], 05/29/2024 13:38:28 ciproflox acin 750 mg tablet 2023 024 arodrigues 32 [facility]/Pharmacy #[id number], [address] [place], [address], 11/29/2023 16:05:50 clotrimaz ole-betam ethasone 1 %-0.05 % topical cream 2023 024 [facility]/Pharmacy #[id number], [address] [place], [address], 11/03/2023 12:17:27 Patient TargetsNo targets recorded. Patient [...] and Address Organization Details Recorded Time Headache 76528745 Active 2018 Facial pain NOS; Note: Date Diagnose d: 9 2:54 PM (R51) Not Available [facility] 4 02:53:44 Eczema NOS Active 2016 Eczema NOS; Note: Date Diagnose d: 05/12/20 17 4:20 PM (L30.9) Not Available [facility] 4 02:53:42 Dysphagi a 97961023 Active 2016 Dysphagi a, unspecif ied; Note: Date Diagnose d: 05/12/20 17 4:27 PM (R13.10) Not Available [facility] 4 02:53:43 Dizzines s and giddines s 341349692 Active 2016 Dizzines s and giddines s; Note: Date Diagnose d: 7 12:36 PM (R42) Not Available [facility] 4 02:53:47 Bilatera l earache 345361996 Active 2016 Otalgia, bilatera l; Note: Date Diagnose d: 04/12/20 17 3:29 PM (H92.03) Not Available [facility] 4 02:53:46 Otitis externa of bilatera l ears 05123884118 70783 Completed 201601/13/2024 Other otitis externa, bilatera l; Note: Date Diagnose d: 7 12:35 PM (H60.8X3 ) Not Available [facility] 4 02:53:47 Impacted cerumen of bilatera l ears 02991436045 72157 Active 2022 Impacted cerumen, bilatera l; Note: Date Diagnose d: 3 3:33 PM (H61.23) Not Available [facility] 4 02:53:48 Bilatera l tympanic membrane central perforat ion 14277971444 86040 Active 2020 Central perforat ion of tympanic membrane , bilatera l; Note: Date Diagnose d: 1 3:12 PM (H72.02) Not Available [facility] 4 02:53:44 Mixed 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, bilatera l 435414500 Active 2016 Mixed 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, bilatera l; Note: Date Diagnose d: 7 11:53 AM (H90.6) Not Available [facility] 4 02:53:43 Bilatera l disorder of Eustachi an tubes 53037733813 12171 Active 2016 Other specifie d disorder s of Eustachi an tube, bilatera l; Note: Date Diagnose d: 7 12:35 PM (H69.83) Not Available [facility] 4 02:53:45 Otalgia of left ear 9601249891 Active 2020 Otalgia, left ear; Note: Date Diagnose d: 03/27/20 21 10:35 AM (H92.02) Not Available [facility] 4 02:53:44 Diffuse otitis externa 97182601 Active 2020 Diffuse otitis externa, left ear; Note: Date Diagnose d: 09/18/2020 3:45 PM (H60.312 ) Not Available [facility] 4 02:53:46 Nasal congesti on 64684894 Active 2016 Nasal congesti on; Note: Date Diagnose d: 04/12/20 17 3:28 PM (R09.81) Not Available [facility] 4 02:53:46 Chronic pharyngi tis 038987 Active 2016 Chronic sore throat; Note: Date Diagnose d: 05/12/20 17 4:24 PM (J31.2) Not Available [facility] 4 02:53:43 Pain of left temporom andibula r joint 89693880588 570995 Active 2020 Arthralg ia of left temporom andibula r joint; Note: Date Diagnose d: 03/27/20 21 10:35 AM (M26.622 ) Not Available [facility] 4 02:53:45 Allergic rhinitis 53732520 Active 2018 Other allergic rhinitis ; Note: Date Diagnose d: 9 2:55 PM (J30.89) Not Available [facility] 4 02:53:47 Otalgia 38294694 Active 2020 Otalgia; Note: Date Diagnose d: 03/27/20 21 10:33 AM (388.70) Not Available [facility] 4 02:53:44 Acute infectiv e otitis externa 068395739 Active 2023 LUCA VRAGAS PA-C [address] [place] [address], [place], [address] , [facility] 4 12:08:57 Dermal mycosis 75822317 Active 2023 LUCA VARGAS PA-C [address] [facility],[place] [address], [place], [address] , [place] - [facility] 4 12:09:27 Chronic mycotic otitis externa 332260837 Active 2023 LUCA VARGAS PA-C [address] [facility],[place] [address], [place], [address] , [facility] - [facility] 4 12:09:27 Candidal otitis externa 33727589 Active 2023 LUCA VARGAS PA-C [address] [place] [address],[place] [address], [place], [address] , [place] - [facility] 4 12:09:27 Bilatera l perforat ion of tympanic membrane s 45125285306 31183 Active 2023 LUCA VARGAS PA-C [address] [facility],[place] [address], [place], [id number] , [place] - [facility] 4 12:10:39 Cellulit is of face 905036397 Active 2023 KUSUM BARTLETT PA-C [address] [facility],[place] [address], [place], [id number] , [place] - [facility] 4 13:49:33 Otorrhea of left ear 24364485621 18505 Active 2023 Otorrhea , left ear; Note: Date Diagnose d: 09/14/2023 3:39 PM (H92.12) Not Available [facility] 4 02:53:47 Problem Notes None recorded. Procedures Surgical History Date Name Laterality Status Provider Name and Address Organization Details Recorded Time 05/29/20 24 Cerumen removal with microscope bilateral completed RAYNA GAY MD [address] [facility],[place] [address], [place], [id number], [place] - [facility] 05/29/2024 13:41:27 05/31/20 24 Cerumen removal without microscope right completed KUSUM BARTLETT PA-C [address] [place] [address],[address], [address], [facility] - [facility] 11/11/2023 13:46:54 Carpal tunnel surgery completed Sunil Bermeo [place] - [facility] 11/03/2023 11:50:12 cholecystectomy completed Sunil Bermeo [place] [facility] 11/03/2023 11:50:21 Imaging Results Imaging Date Name Status LastModified by [facility] Details LastModified Time 07/29/2022 imaging/diag nostic result [...] Name and Address Organization Details Recorded Time 96759 celecoxib medicatio n other Not available Not available 10/25/2023 08815 7 RxNorm React ion: unkno wn, unspe cifie d;; Not Available [facility] 4 00:49:36 71347 pregabali n medicatio n other Not available Not available 10/25/2023 63805 2 RxNorm React ion: unkno wn, unspe cifie d;; Not Available [facility] 4 00:49:49 Medications Name Sig Start Date Stop Date Status Note LastModified by Organization Details LastModified Time amoxicill in 500 mg capsule TOME 1 C PSULA ORALLY EVERY 12 HOURS FOR 7 DAYS 11/28 completed Not Available Not Available Not Available neomycin- polymyxin -hydrocor t 3.5 mg/mL-10, 000 unit/mL-1 % ear solution 01/10 completed Medicati on ID: 702327 D uration Value: 10 Reason: () Brand [...] mg capsule 01/10 completed Medicati on ID: 234666 D uration Value: 30 Reason: () Brand Name: jaymie n Send Method: E-Prescr ibed Sub s Allowed: subs OK Medic ationGen ericName : acitreti n Not Available Not Available Not Available fluconazo le 150 mg tablet PLEASE SEE ATTACHED FOR DETAILED DIRECTIO NS active Not Available Not Available No t Available Senna Lax 8.6 mg tablet 2016 active Medicati on ID: [id number] D uration Value: 30 Brand Name: Senna [...] affected area 2016 active Medicati on ID: 520556 D uration Value: 14 Prescri bed By [...] mg tablet 01/10 completed Medicati on ID: [id number] D uration Value: 30 Reason: () Brand Name: Fiber Laxative (ca polycarb o) Send Method: E-Prescr ibed Sub s Allowed: subs OK Speci al Instruct ion: TAKE 1-2 CAPSULES TWICE A DAY ORALLY 30 DAYS Med icationG enericNa me: Fiber Laxative (ca polycarb o) Not Available Not Available Not Available sumatript an 25 mg tablet 2018 active Medicati on ID: 202715 D uration Value: 30 Brand Name: sumatrip [...] mg tablet 01/10 completed Medicati on ID: 591334 D uration Value: 9 Reason: () Brand [...] twice a day active Medicati on ID: 155361 D uration Value: 10 Prescri bed By Name: SESAR Deluca nd Name: ofloxaci n Send Method: E-Prescr ibed Sub s Allowed: subs OK Medic ationGen ericName : ofloxaci n Not Available Not Available Not Available Gas Relief (simethic one) 125 mg capsule 01/10 completed Medicati on ID: 835095 D uration Value: 30 Reason: () Brand Name: Gas Relief S end Method: E-Prescr ibed Sub s Allowed: subs OK Speci al Instruct ion: TOME FATMATA CAPSULA POR VIA ORAL DOS VECES AL CAT CUANDO SEA NECESARI O Medica tionGene ricName: Gas Relief Not Available Not Available Not Available Vitamin C 1,000 mg tablet 2016 active Medicati on ID: 135840 D uration Value: 30 Brand Name: Vitamin [...] mg tablet 2020 active Medicati on ID: 181126 B rand Name: baclofen Send Method: E-Prescr ibed Sub s Allowed: subs OK Speci al Instruct ion: TOME FATMATA TABLETA POR V A ORAL CADA OCHO HORAS PARA EL ESPASMO MUSCULAR CUANDO SEA NECESARI O Medica tionGene ricName: baclofen Not Available Not Available Not Available benzonata te 100 mg capsule 01/10 completed Medicati on ID: 305319 D uration Value: 10 Reason: () Brand Name: benzonat ate Send Method: E-Prescr ibed Sub s Allowed: subs OK Medic ationGen ericName : benzonat ate Not Available Not Available Not Available gemfibroz il 600 mg tablet 2018 active Medicati on ID: 152422 D uration Value: 30 Brand Name: gemfibro [...] iron) tablet 2020 active Medicati on ID: 478118 B rand Name: ferrous sulfate Send Method: [...] eye drops 01/10 completed Medicati on ID: 103148 D uration Value: 10 Reason: () Brand [...] solution Apply 11/02 completed Medicati on ID: 675224 D uration Value: 14 Prescri bed By Name: SESAR Roman nd Name: clotrima zolleena [place] Method: E-Prescr ibed Sub s Allowed: subs OK Speci al Instruct ion: 4 drops to both ears BID x 2 weeks Me dication GenericN luciano: clotrima zole Med ication ID: [id number] D uration Value: 14 Prescri bed By [...] mg capsule 2016 active Medicati on ID: 340213 D uration Value: 30 Brand Name: gabapent in Send Method: E-Prescr ibed Sub s Allowed: subs OK Speci al Instruct ion: TOME FATMATA CAPSULA TODOS LOS BAKER Med icationG enericNa me: gabapent in Not Available Not Available Not Available omeprazol e 20 mg capsule,d elayed release 2016 active Medicati on ID: 934907 D uration Value: 30 Brand Name: omeprazo [...] tended release 2016 active Medicati on ID: 413596 D uration Value: 5 Brand Name: Mapap [...] unit) capsule 2016 active Medicati on ID: 976590 D uration Value: 30 Brand Name: Vitamin [...] as directed 2021 active Medicati on ID: 106200 D uration Value: 14 Brand Name: Ciprodex Send Method: E-Prescr ibed Sub s Allowed: subs OK Speci al Instruct ion: x 14 days Med icationG enericNa me: Ciprodex Not Available Not Available Not Available rosuvasta tin 20 mg tablet 01/10 completed Medicati on ID: 954369 D uration Value: 30 Reason: () Brand Name: rosuvast atin Sen d Method: E-Prescr ibed Sub s Allowed: subs OK Speci al Instruct ion: TOME FATMATA TABLETA TODOS LOS BAKER Med icationG enericNa me: rosuvast atin Not Available Not Available Not Available cranberry extract 500 mg capsule 2016 active Medicati on ID: 865114 D uration Value: 30 Brand Name: cranberr y extract Send Method: E-Prescr ibed Sub s Allowed: subs OK Speci al Instruct ion: TOME FATMATA CAPSULA POR VIA ORAL TODOS LOS BAKER SCOTT LO INDICADO Medicat ionGener icName: cranberr y extract Not Available Not Available Not Available Fiber Therapy (methylce llulose) 500 mg tablet 01/10 completed Medicati on ID: 834357 D uration Value: 30 Reason: () Brand [...] elayed release 01/10 completed Medicati on ID: 121737 D uration Value: 30 Reason: () Brand Name: duloxeti ne Send Method: E-Prescr ibed Sub s Allowed: subs OK Speci al Instruct ion: TOME FATMATA CAPSULA POR VIA ORAL TODOS LOS BAKER Med icationG enericNa me: duloxeti ne Not Available Not Available Not Available ProAir HFA 90 mcg/actua tion aerosol inhaler 2 puff 2018 active Medicati on ID: 048312 D uration Value: 30 Brand Name: ProAir [...] aerosol spray 2018 active Medicati on ID: 112237 D uration Value: 30 Brand Name: QNASL [...] both nostrils 2018 active Medicati on ID: 623003 D uration Value: 120 Prescri bed By Name: Minda barger MD Brand Name: Flonase Allergy Relief S end Method: E-Prescr ibed Sub s Allowed: subs OK Medic ationGen ericName : Flonase Allergy Relief Not Available Not Available Not Available Trulance 3 mg tablet 2018 active Medicati on ID: 958428 D uration Value: 30 Brand Name: Trulance [...] Updated DateTime 11/11/2023 154.94 cm 28.2 kg/m2 96478.26 g Sunil Bermeo [facility] 11/11/2023 13:07:26 Date Recorded Body height Body mass index (BMI) Body weight Provider Name and Address Organization Details Last Updated DateTime 05/29/2024 154.94 cm 28.3 kg/m2 60613.86 g Norm Burgess [facility] 05/29/2024 13:30:36 Social History None recorded. Functional [...] Note 1312 MINDA MAIER MD [facility] [address] [address] 11/03/2023 11:38:00 11/03/2023 12:34:18 Chronic mycotic otitis externa 905424132 H60.399 Previously found to be fungal via culture Bilateral perforation of tympanic membranes 6144170666 246083 H72.93 2195 DAGO GODOY MD [facility] [address] [address] 11/11/2023 12:58:21 11/11/2023 13:33:03 Bilateral disorder of Eustachian tubes 5810632021 501340 H69.83 Bilateral perforation of tympanic membranes 7668866867 849357 H72.93 Cellulitis of face 2001 L03.211 4579 RAYNA GAY MD [facility] [address] [place] [address] 11/29/2023 15:24:29 11/29/2023 16:27:24 Bilateral disorder of Eustachian tubes 7955176942 307164 H69.83 Bilateral tympanic membrane central perforation 5286358971 232057 H72.03 Mixed cond uctive and sensorineural hearing loss, bilateral 125663807 H90.6 [id number] RAYNA GAY MD [facility] [address] [address] 05/29/2024 13:13:55 05/29/2024 13:43:03 Bilateral disorder of Eustachian tubes 8056657068 284059 H69.83 Bilateral tympanic membrane central perforation 2375973266 469500 H72.03 Mixed cond uctive and sensorineural hearing loss, bilateral 026601689 H90.6 Dermal mycosis 23959775 B36.9 The skin of the {{right le [...] . Impacted c erumen of bilateral ears 2910171372 720041 H61.23 Health Concerns Section Related Observation LastModified by Organization Detai ls LastModified Time None Recorded Concern Status LastModified by Organization Details LastModified Time None Recorded Advance Directives Directive None Recorded Payers Encounter Date Sequence Insurance Name Policy Number Policy Munguia Covered Member ID Munguia Member ID Guarantor Name 11/03/2023 1 [facility] (MEDICAID HMO) MIGUEL Medley Ady [id number] Raquel Medley Ady 11/11/2023 1 [facility] (MEDICAID HMO) MIGUEL Medley Ady [id number] Raquel Medley Ady 11/29/2023 1 [facility] (MEDICAID HMO) MIGUEL Medley Ady [id number] Raquel Medley Ady 05/29/2024 1 [facility] (MEDICAID HMO) MIGUEL Medley Ady [id number] Raquel Garsia Notes Date Note Type Note Provider Name and Address Organization Details Recorded Time 11/03/2023 text/html 62 year old marie avelar presents with family member, who provides interpretation services and family declined professional oil field pipeline supervisor, for evaluation of the left ear. Patient reports she has not taken any drops since early September. The ear is very itchy and there is non-pulsatile tinnitus. No otalgia. There is a little dampness but no elmer otorrhea. Wearing her hearing aids every day. When she removes them she cleans with water and soap and a brush. LUCA VARGAS PA-C [address], [address], [facility] - [facility] 11/03/2023 15:33:16 11/11/2023 text/html 62-year-old marie [...] behind the ear. DAGO GODOY MD 100 [facility],[address], [address], [facility] 11/11/2023 17:21:42 11/29/2023 text/html 63-year-old marie avelar with chronic history of ear disease who has been a patient in the office since 2017. She comes in today accompanied by her daughter who is helping to translate Tuvaluan. Patient recently had prolonged episode of left-sided otorrhea which was treated with a combination of antifungal and antibacterial's. Patient notes no further left-sided ear discharge. Patient did have some bleeding during treatment of the left ear which has since resolved. Patient currently using binaural amplification dispensed at [facility]. She has bilateral mixed hearing loss. RAYNA GAY MD [address] [place] [address],[address], [address], [facility] 11/29/2023 17:21:59 05/29/2024 text/html 63-year-old marie [...] her daughter who is helping to translate Tuvaluan. Patient currently using binaural amplification dispensed at [facility]. She has bilateral mixed hearing loss. Patient comes in today for preventative ear cleaning. Patient comes in today accompanied by her daughter. She is helping to translate Tu[place]uan. Patient reports itchiness in her ears. RAYNA GAY MD [address] [place] [address],[address], [address], [facility] 05/29/2024 13:42:11 OBGyn Episode No OBEpisode recorded.
== END 2024-08-21 16:47 | disposition home or self-care (01) ==
LOC: HO.HMCH 15:45
PROVIDERS: PCP Internal Medicine
DX: H66.92 Otitis media, unspecified, left ear (principal); I83.11 Varicose veins of right lower extremity with inflammation

== ENCOUNTER → 2024-08-21 15:45 | Outpatient (BNVA) | payer OTHER, SELFPAY | PROVIDERS: PCP Internal Medicine | DX: H66.92 Otitis media, unspecified, left ear (principal); I83.11 Varicose veins of right lower extremity with inflammation | CPT/HCPCS: 96127; 99212 ==

== ENCOUNTER 2024-08-22 08:37 | Outpatient (REF) | payer OTHER, SELFPAY ==
[2024-08-22 09:00] LABS: MANUAL DIFF FLAG NO
--- OUTSIDE RECORDS SUMMARY | 2024-08-22 09:10 | XMS_ITS | Encounter Summary ---
Author Organization [facility] Address [address] [place] [address] Care Team Providers Care Turret Lathe Tender Name Role Phone Mario Torres Primary Care Provider Kristie Mejia, Pcp Primary Care Provider Julia Eid MD Primary Care Provider Lola mares Reason for Visit * Reason Onset Date Comments REFERRAL 09/15/2017 Encounter Details Date Type Department Care Team Description 09/15/2017 Telephone Allergy - [address] [address] Wilma Elaine MD REFERRAL Social History Tobacco Use Types Packs/Day Years Used Date Smoking Tobacco: Never Smokeless Tobacco: Never Alcohol Use Standard Drinks/Week Comments No 0 (1 standard drink = 0.6 oz pur e alcohol) Sex Assigned at Date Recorded Not on file documented as of this encounter Miscellaneous Notes * Telephone Encounter - Carissa Bennett - 09/15/2017 9:07 AM EDT Made Multiple attempts to reach patient by phone and sent letter as well with no response- will remove patient from referral report I will request a referral to allergy. Reason for referral: allergy testing food allergy Priority: Routine - schedule for next available appointment; Priority - visit within 4-6 weeks; Urgent - visit within a week; Emergency - visit today or tomorrow. Not third-alliance party related documented in this encounter Plan of Treatment Not on file documented as of this encounter Visit Diagnoses Not on filedocumented in this encounter Care Teams Turret Lathe Tender Relationship Specialty Start Date End Date Mario Torres PCP - General Internal Medicine 09/01/17 09/29/17 Community, Pcp PCP - General Internal Medicine 09/30/17 08/01/23 Julia Oviedo MD PCP - General Internal Medicine 08/02/23 documented as of this encounter
--- OUTSIDE RECORDS SUMMARY | 2024-08-22 09:10 | XMS_ITS | Encounter Summary ---
Author Organization [facility] Address [address] [place] [address] Care Team Providers Care Traffic Rate Computer Name Role Phone Community, Pcp Primary Care Provider Julia Eid MD Primary Care Provider Lola mares Reason for Visit * Reason Onset Date Comments Testing 08/25/2018 sleep study Encounter Details Date Type Department Care Team Description 08/25/2018 Telephone Pulmonology - [place] [address] [facility] [address] [place] [address] Vijay Patton PA-C [address] [facility] [address] [place] [address] Testing (sleep study) Social History Tobacco Use Types Packs/Day Years Used Date Smoking Tobacco: Never Smokeless Tobacco: Never Alcohol Use Standard Drinks/Week Comments No 0 (1 standard drink = 0.6 oz pur e alcohol) Sex Assigned at Date Recorded Not on file documented as of this encounter Miscellaneous Notes * Telephone Encounter - Nano Slade - 09/06/2018 1:10 PM EDT Thank you * Telephone Encounter - Tara Jiménez - 09/06/2018 11:22 AM EDT Patient updated insurance information listed [facility] Please review * Telephone Encounter - Tara Jiménez - 09/01/2018 11:30 AM EDT Spoke with daughter, there was a problem with the insurance She explained that they contacted the insurance company and supposedly is all set She will contact her mom and find out exactly what she has for coverage and will return a call to us * Telephone Encounter - Tara Jiménez - 08/29/2018 4:39 PM EDT Left message for patient to call and update insurance information * Telephone Encounter - Nano Slade - 08/25/2018 11:36 AM EDT Pavan Patton placed an order for a sleep study. There is no insurance listed. Can you please update the insurance so that an authorization can be obtained. Thanks, Nano Burns Auth Dept. documented in this encounter Plan of Treatment Not on file documented as of this encounter Visit Diagnoses Not on filedocumented in this encounter Care Teams Traffic Rate Computer Relationship Specialty Start Date End Date Community, Pcp PCP - General Internal Medicine 09/30/17 08/01/23 Julia Oviedo MD PCP - General Internal Medicine 08/02/23 documented as of this encounter
--- OUTSIDE RECORDS SUMMARY | 2024-08-22 09:10 | XMS_ITS | Clinical Summary ---
Author Organization [facility] Address [address] [place] [address] Care Team Providers Care Concrete Pump Operator Name Role Phone Julia Oviedo MD Primary Care Provider Lola mares Allergies Active Allergy Reactions Severity Noted Date Comments Celecoxib 10/07/2016 Rosuvastatin Calcium 10/07/2016 Dicyclomine 10/07/2016 Fulvicin P-G 10/07/2016 Lyrica 10/07/2016 Morphine 10/03/2023 Oxycodone 10/03/2023 Pamelor 10/07/2016 Apap-Fd&C Red #40 Al [place]-Oxycodone 10/07/2016 Seafood 10/07/2016 Medications Medication Sig Dispensed Refills Start Date End Date Status omeprazole (PRILOSEC) 10 MG capsule Take 20 mg by mouth daily. 0 Active Vitamin D, Cholecalciferol, 1000 UNITS Cap Take by mouth. 0 Active Cranberry 125 MG Tab Take by mouth. 0 Active GABAPENTIN & DIET MANAGE PROD OR Take by mouth. 0 Active Fiber, Sulph[place] Rock Dextrin, Powder Take by mouth. 0 Active Linaclotide 145 MCG Cap Take by mouth. 0 Active senna (SENOKOT) 8.6 MG tablet Take 1 tablet by mouth daily. 0 Active gemfibrozil (LOPID) 600 MG tablet Take 600 mg by mouth 2 times daily (before meals). 0 Active Wdvfeap-Hfbpwivxo-Yr tamin D (CALCIUM 500 OR) Take by mouth. 0 Active AMITRIPTYLINE HCL OR Take by mouth. 0 Active Oxymetazoline HCl (QC NASAL RELIEF SINUS NA) by Nasal route. 0 Active clotrimazole (LOTRIMIN) 1 % external solution Apply topically 2 times daily. 0 Active clobetasol (TEMOVATE) 0.05 % ointment APLIQUE AL AREA AFECTADA DOS VECES AL CAT FOR 3 TO 4 WEEKS 30 g 1 07/25/2017 Active ALBUTEROL SULFATE 108 (90 BASE) MCG/ACT Aero SolnIndications:Asth ma, unspecified asthma severity, unspecified whether complicated, unspecified whether persistent,Allergic rhinitis, unspecified chronicity, unspecified seasonality, unspecified trigger,GRAYSON (obstructive sleep apnea) Inhale 2 Puffs into the lungs every 4 hours as needed for Cough or Wheezing. 1 Inhaler 0 09/19/2017 Active methotrexate 2.5 MG tablet Take 4 Tabs by mouth once a week for 30 days. 16 Tab 1 12/09/2017 Active folic acid (FOLVITE) 1 MG tablet Take 1 Tab by mouth daily. 30 Tab 12 12/09/2017 Active clindamycin (CLINDAGEL) 1 % gel Apply small amount on the face bid 30 g 2 12/09/2017 Active TRULANCE 3 MG TabIndications:GRAYSON (obstructive sleep apnea),Pulmonary nodules,Allergic rhinitis due to pollen, unspecified seasonality TOME FATMATA TABLETA POR V?A ORAL TODOS LOS D? 3 02/25/2018 Active Diclofenac Sodium 1 % Gel Apply 4 g topically 2 times daily. 100 g 2 10/03/2023 Active Salicylic Acid 40 % STICK Apply 1 Applicator topically daily. 1 Stick 0 10/03/2023 Active methylPREDNISolone (Medrol) 4 MG tablet Medrol Dosepak 6 tablets to be taken on day 1 5 tablets to be taken on day 2 4 tablets to be taken on day 3 3 tablets to be taken on day 4 2 tablets be taken on day 5 1 tablet to be taken on day 6 21 Tablet 0 04/12/2024 Active Active Problems Problem Noted Date PLMD (periodic limb movement disorder) 0 01/07/2019 Allergic rhinitis 07/08/2017 Asthma 07/08/2017 Fibroma 07/08/2017 History of small bowel obstruction 07/08 GRAYSON (obstructive sleep apnea) 07/08/2017 Overview: CPAP RBMG Polysomnogram treatment study. Date 11/11/2018. SE 88 % SM 90 %; spent 19 % of the study in REM. On CPAP @ 8; RDI 0 (AHI 0), Central apneas 0; Obstructive apneas 0; Mixed apneas 0; hypopneas 0; RERAs 0; and, average oxygen saturation was 96%. For the entire study, PLMs ~38. - 11/11/2018 Pre-study ESS 14. 4/4 RLS symptoms. Hyperlipidemia 07/08/2017 Vitamin D deficiency 07/08/2017 Pulmonary nodules 07/08/2017 Fatty liver 07/08/2017 Osteopenia 07/08/2017 Orthostatic hypotension 07/08/2017 Hiatal hernia 07/08/2017 GERD (gastroesophageal reflux disease) 0 07/08/2017 Psoriasis 04/23/2017 Social History Tobacco Use Types Packs/Day Years Used Date Smoking Tobacco: Never Smokeless Tobacco: Never Alcohol Use Standard Drinks/Week Comments No 0 (1 standard drink = 0.6 oz pur e alcohol) Sex Assigned at Date Recorded Not on file Last Filed Vital Signs Vital Sign Reading Time Taken Comments Blood Pressure 120/72 04/03/2018 3:43 PM EDT Pulse 76 04/03/2018 3:43 PM EDT Temperature - - Respiratory Rate 14 01/06/2017 9:36 AM EDT Oxygen Saturation 99% 04/03/2018 3:43 PM EDT Inhaled Oxygen Concentration - - Weight 65.3 kg (144 lb) 04/12/2024 10:23 AM EDT Height 154.9 cm (5' 1 ) 04/12/2024 10:23 AM EDT Body Mass Index 27.21 04/12/2024 10:23 AM EDT Plan of Treatment Health Maintenance Due Date Last Done Comments Covid-19 Vaccine (#1) 05/15/1960 PNEUMOCOCCAL VACCINE FOR HIG H RISK PATIENTS (#1) 11/13/1978 CHOLESTEROL SCREENING 1979 CERVICAL CANCER SCREENING 11/13/1980 MAMMOGRAM 1999 COLON CANCER SCREENING 11/13/2009 SHINGLES VACCINE (1 of 2) 11/13/2009 INFLUENZA (#1) 2024 BMI CHECK/ADVISE 06/13/2024 04/03/2018, 02/2018, 05/17/2017 DEPRESSION SCREENING/FOLLOWUP 06/13/2024 SOCIAL NEEDS SCREENING 06/13/2024 DTAP/TDAP/TD (2 - Td or Tdap) 01/13/2026 01/14/2016 HEPATITIS C SCREENING Completed 10/07/2016 Care Teams Concrete Pump Operator Relationship Specialty Start Date End Date Julia Oviedo MD PCP - General Internal Medicine 08/02/23
--- OUTSIDE RECORDS SUMMARY | 2024-08-22 09:10 | XMS_ITS | Encounter Summary ---
Author Organization [facility] Address [address] [place] [address] Care Team Providers Care Health Care Facilities Inspector Name Role Phone Julia Oviedo MD Primary Care Provider Lola mares Encounter Details Date Type Department Care Team Description 12/07/2023 [facility] 175 [facility] [address] [place] [phone] Vijay Powell DPM 175 [facility] [address] [place] [address] Social History Tobacco Use Types Packs/Day Years Used Date Smoking Tobacco: Never Smokeless Tobacco: Never Alcohol Use Standard Drinks/Week Comments No 0 (1 standard drink = 0.6 oz pur e alcohol) Sex Assigned at Date Recorded Not on file documented as of this encounter Plan of Treatment Not on file documented as of this encounter Visit Diagnoses Not on filedocumented in this encounter Care Teams Health Care Facilities Inspector Relationship Specialty Start Date End Date Julia Oviedo MD PCP - General Internal Medicine 08/02/23 documented as of this encounter
--- OUTSIDE RECORDS SUMMARY | 2024-08-22 09:10 | XMS_ITS | Encounter Summary ---
Author Organization [facility] Address [address] [place] [address] Care Team Providers Care Process Designer Name Role Phone Community, Pcp Primary Care Provider Julia Eid MD Primary Care Provider Lola mares Encounter Details Date Type Department Care Team Description 10/26/2018 Release of Information Medical Records [address] [place] [id number] Abstract, Provider Social History Tobacco Use Types Packs/Day Years [...] on filedocumented in this encounter Care Teams Process Designer Relationship Specialty Start Date End Date Community, Pcp PCP - General Internal Medicine 09/30/17 08/01/23 Julia Oviedo MD PCP - General Internal Medicine 08/02/23 documented as of this encounter
--- OUTSIDE RECORDS SUMMARY | 2024-08-22 09:10 | XMS_ITS | Encounter Summary ---
Author Organization [facility] Address [address] [place] [address] Care Team Providers Care Hi Teacher Name Role Phone Julia Oviedo MD Primary Care Provider Lola mares Encounter Details Date Type Department Care Team Description 02/09/2024 SCAN [facility] Medical [facility] - [facility] 175 [facility] [address] [place] [phone] Vijay Powell DPM 175 [facility] [address] [place] [address] Social History Tobacco Use Types Packs/Day Years [...] on filedocumented in this encounter Care Teams Hi Teacher Relationship Specialty Start Date End Date Julia Oviedo MD PCP - General Internal Medicine 08/02/23 documented as of this encounter
--- OUTSIDE RECORDS SUMMARY | 2024-08-22 09:10 | XMS_ITS | Encounter Summary ---
Author Organization [facility] Address [address] [place] [address] Care Team Providers Care Storeroom Clerk Name Role Phone Community, Pcp Primary Care Provider Julia Eid MD Primary Care Provider Lola mares Encounter Details Date Type Department Care Team Description 03/16/2018 Segmental Paving Supervisor Report Medical Records [address] [place] [address] Reynaldo Peralta Social History Tobacco Use Types Packs/Day Years [...] on filedocumented in this encounter Care Teams Storeroom Clerk Relationship Specialty Start Date End Date Community, Pcp PCP - General Internal Medicine 09/30/17 08/01/23 Julia Oviedo MD PCP - General Internal Medicine 08/02/23 documented as of this encounter
--- OUTSIDE RECORDS SUMMARY | 2024-08-22 09:11 | XMS_ITS | Encounter Summary ---
Author Organization [facility] Address [address] [place] [address] Care Team Providers Care Insurance Solicitor Name Role Phone Community, Pcp Primary Care Provider Gretel Garay MD Primary Care Provider Mario Lucas Primary Care Provider Kristie Mejia, Pcp Primary Care Provider Julia Eid MD Primary Care Provider Lola mares Encounter Details Date Type Department Care Team Description 10/07/2016 Release of Information Medical Records [address] [place] [id number] Abstract, Provider Social History Tobacco Use Types Packs/Day Years Used Date Smoking Tobacco: Never Assessed Sex Assigned at Date Recorded Not on file documented as of this encounter Plan of Treatment Not on file documented as of this encounter Visit Diagnoses Not on filedocumented in this encounter Care Teams Insurance Solicitor Relationship Specialty Start Date End Date Community, Pcp PCP - General Internal Medicine 08/26/16 05/16/17 Gretel So MD PCP - General Internal Medicine 05/17/17 08/31/17 Mario Torres PCP - General Internal Medicine 09/01/17 09/29/17 Community, Pcp PCP - General Internal Medicine 09/30/17 08/01/23 Julia Oviedo MD PCP - General Internal Medicine 08/02/23 documented as of this encounter
--- OUTSIDE RECORDS SUMMARY | 2024-08-22 09:11 | XMS_ITS | Clinical Summary ---
Author Organization [facility] Address [address] [place] [address] Phone Care Team Providers Care Technical Systems Architect Name Role Phone Julia Oviedo MD Primary Care Provider [phone] Allergies Active Allergy Reactions Criticality Noted Date [...] (two) times a day. Active INV [id number] [id number] 3-1 gram packet Take 1 packet by mouth. Take ordered dose of [id number] as directed in the absence of the [...] Care Team Description 08/01/2024 Telephone Orthopedic Surgery [place] [address] [phone] Vijay Powell, DPM Medicaiton questions 07/17/2024 Telephone Orthopedic Surgery [place] [address] [phone] Vijay Powell, DPM from Last [...] Hospital Encounter [facility] Main OR [address] [place] [phone] Vijay Powell DPM [address] [address] 08/31/2024 7:30 AM EDT - 08/31/2024 9:00 AM EDT Surgery [facility] Main OR [address] [place] [phone] Vijay Powell DPM [address] [address] EXCISION LESION SOFT TISSUE RIGHT FOOT [88496 (CPT??)] Scheduled Procedures Name Priority Associated Diagnoses [...] Most Recently Relevant to Health Maintenance Insurance [facility] Care Teams Technical Systems Architect Relationship Specialty Start Date End Date Julia Oviedo MD 2 [facility] , [address] [facility] D/B/A: [facility] GREGORIO Sahni PCP - General 08/02/23
--- OUTSIDE RECORDS SUMMARY | 2024-08-22 09:11 | XMS_ITS | Encounter Summary ---
Author Organization [facility] Address [address] [place] [address] Care Team Providers Care Signal Operator Name Role Phone Julia Oviedo MD Primary Care Provider [phone] Reason for Visit * Reason Onset Date Comments Medicaiton questions 08/01/2024 Encounter Details Date Type Department Care Team (Late st Contact Info) Description 08/01/2024 Telephone Orthopedic Surgery - [place] [address] [phone] Vijay Powell DPM [address] [address] Medicaiton questions Social History Tobacco Use Types [...] or General Anesthsia. Please call Mariama @ [phone] . Thanks documented in this encounter Plan of Treatment Upcoming Encounters Date Type Department Care Team (Late st Contact Info) Description 08/31/2024 7:30 AM EDT Hospital Encounter [facility] Main [place] [address] [place] [phone] Vijay Powell DPM [address] [address] 08/31/2024 7:30 AM EDT - 08/31/2024 9:00 AM EDT Surgery [facility] OR [address] [place] [phone] Vijay Powell DPM [address] [address] EXCISION LESION SOFT TISSUE RIGHT FOOT [[id number] (CPT??)] Scheduled Procedures Name Priority Associated Diagnoses Date/Ti me EXCISION LESION SOFT TISSUE FOOT Other bursal cyst, right ankle and foot 08/31/2024 7:30 AM EDT documented as of this encounter Visit Diagnoses Not on filedocumented in this encounter Care Teams Signal Operator Relationship Specialty Start Date End Date Julia Oviedo MD [address] [place] [address] , [facility] 101 [facility] D/B/A: [facility] [place], [place] PCP - General 08/02/23 documented as of this encounter
--- OUTSIDE RECORDS SUMMARY | 2024-08-22 09:11 | XMS_ITS | Encounter Summary ---
Author Organization [facility] Address [address] [place] [address] Care Team Providers Care E Learning Manager Name Role Phone Julia Oviedo MD Primary Care Provider [phone] Encounter Details Date Type Department Care Team (Late Contact Info) Description 07/17/2024 Telephone Orthopedic Surgery - [place] [address] [phone] Vijay Powell DPM [address] [address] Social History Tobacco Use Types Packs/Day Years [...] back to discuss surgery date and time [phone] documented in this encounter Plan of Treatment Upcoming Encounters Date Type Department Care Team (Late Contact Info) Description 08/31/2024 7:30 AM EDT Hospital Encounter [facility] Main OR [address] [place] [phone] Vijay Powell DPM [address] [address] 08/31/2024 7:30 AM EDT - 08/31/2024 9:00 AM EDT Surgery [facility] Main OR [address] [place] [phone] Vijay Powell, DPM 175 [facility] [address] [place] [address] EXCISION LESION SOFT TISSUE RIGHT FOOT [[id number] (CPT??)] Scheduled Procedures Name Priority Associated Diagnoses Date/Ti me EXCISION LESION SOFT TISSUE FOOT Other bursal cyst, right ankle and foot 08/31/2024 7:30 AM EDT documented as of this encounter Visit Diagnoses Not on filedocumented in this encounter Care Teams E Learning Manager Relationship Specialty Start Date End Date Julia Oviedo MD [address] [place] [address] , [address] [facility] D/B/A: [facility] [place], [place] PCP - General 08/02/23 documented as of this encounter
[2024-08-22 09:49] LABS: Appearance Urine Clear; Color Urine Yellow; Glucose Urine UA Negative (Negative); Leukocyte Esterase Urine Negative (Negative); Nitrite Urine Negative (Negative); Specific Gravity - Urine 1.015 (1.005-1.025); UMIC TRIGGER UACC YES; Urine Blood Trace (Negative); Urine Ketones Negative (Negative); Urine Protein Negative (Neg-Trace)
[2024-08-22 09:51] LABS: Bacteria Urine None Seen (None Seen); Hyaline Casts Urine 0-2 /LPF (0-2); RBC Urine 0-2 /HPF (0-2); Squamous Epithelial Cell Urine 0-2 /HPF (0-2); WBC Urine 0-5 /HPF (0-5)
[2024-08-22 09:52] LABS: Basophils Absolute Auto 0.1 X10*3/uL (0.0-0.2); Basophils Percent Auto 0.9 % (0-2); Eosinophils Absolute Auto 0.2 X10*3/uL (0.0-0.4); Eosinophils Percent Auto 2.7 % (0-4); Hematocrit 34.6 % (37.0-47.0); Hemoglobin 11.4 g/dl (12.0-16.0); Imm Gran Abs Auto 0.13 X10*3/uL (0.00-0.03); Imm Gran Pct Auto 2.3 % (0.0-0.4); Lymphocytes Absolute Auto 2.3 X10*3/uL (1.2-4.9); Lymphocytes Percent Auto 40.6 % (20-40); Mean Corpuscular HGB Conc 32.9 g/dl (31.0-35.0); Mean Corpuscular Hemoglobin 30.6 pg (27.0-33.0); Mean Corpuscular Volume 92.8 fL (80.0-98.0); Mean Platelet Volume 8.9 fL (9.4-12.3); Monocytes Absolute Auto 0.6 X10*3/uL (0.1-1.2); Monocytes Percent Auto 10.3 % (2-11); Neutrophils Absolute Auto 2.4 x10*3/uL (2.0-8.3); Neutrophils Percent Auto 43.2 % (45-73); Platelet Count 237 X10*3/uL (160-400); Red Blood Count 3.73 X10*6/uL (4.20-5.50); Red Cell Distribution Width 12.9 % (11.0-16.0); White Blood Count 5.6 X10*3/uL (4.8-10.8)
[2024-08-22 10:36] LABS: Alanine Aminotransferase 20 U/L (0-31); Albumin Level 3.9 g/dL (3.5-5.0); Alkaline Phosphatase 79 U/L (39-117); Anion Gap 7 (12-20); Aspartate Amino Transferase 22 U/L (5-31); Bilirubin Total 0.3 mg/dL (0.0-1.0); Blood Urea Nitrogen 14 mg/dL (9-16); Calcium 8.9 mg/dL (8.4-10.2); Carbon Dioxide 27 mmol/L (22-29); Chloride 111 mmol/L (96-108); Cholesterol 191 mg/dL (<200); Estimated Glomerular Filt Rate > 60; Glucose Fasting 84 mg/dL (60-99); HDL Cholesterol 51 mg/dL (>40); Iron 53 mcg/dL (30-160); LDL Cholesterol Calculated 119 mg/dL (<100); Magnesium 1.9 mg/dL (1.6-2.6); Percent Iron Saturation 24 % (15-50); Potassium 4.1 mmol/L (3.3-5.1); Sodium 141 mmol/L (135-145); Total Iron Binding Capacity 225 mcg/dL (228-428); Triglycerides 105 mg/dL (<150); Unsaturated Iron Binding 172 ug/dL
[2024-08-22 11:01] LABS: Folate 16.3 ng/mL (> or = 4.0); Vitamin B12 410 pg/mL (200-900)
[2024-08-22 11:04] LABS: TSH reflex Free T4 2.14 uIU/mL (0.32-4.0); Vitamin D 25-OH Total 75.5 ng/mL (>30)
== END 2024-08-22 08:38 | disposition home or self-care (01) ==
LOC: HO.LAB 08:37
PROVIDERS: PCP Internal Medicine
DX: R20.0 Anesthesia of skin (principal); R20.2 Paresthesia of skin; R25.2 Cramp and spasm; D64.9 Anemia, unspecified; D50.9 Iron deficiency anemia, unspecified
CPT/HCPCS: 36415; 80053; 80061; 81001; 82306; 82607; 82746; 83540; 83735; 84443; 85025

== ENCOUNTER 2024-08-31 14:42 | Outpatient (REF) | payer OTHER, SELFPAY | END 2024-08-31 14:43 | disposition home or self-care (01) | LOC: HO.HAP 14:42 | PROVIDERS: Visit Provider Internal Medicine | DX: Z46.1 Encounter for fitting and adjustment of hearing aid (principal); H90.3 Sensorineural hearing loss, bilateral | CPT/HCPCS: V5266 ==

== ENCOUNTER 2024-09-14 10:29 | Outpatient (REF) | payer OTHER, SELFPAY ==
--- NOTE | ~2024-09-14 | US_ITS ---
CLINICAL HISTORY: R19.8 - ruq pain + castro sign US abdomen limited with color Doppler Comparison: None Findings: Visualized pancreas is normal. Tail obscured by bowel gas. Liver is normal in size and echotexture. Right lobe length 13.3 cm. No focal hepatic masses. Common duct 5.6 mm diameter. Post cholecystectomy. No sonographic Castro sign. Main portal vein antegrade. Right kidney measures, 9.0 cm in length. Normal cortical width and echotexture. No hydronephrosis calculus or mass. Impression: 1. Post cholecystectomy. 2. No biliary dilatation. No sonographic Castro's sign. 3. No hepatomegaly. This document has been electronically signed by: Sen Forte MD on 09/14/2024 15:13:59
--- OUTSIDE RECORDS SUMMARY | 2024-09-14 11:56 | XMS_ITS | Encounter Summary ---
Author Organization [facility] Address [address] [place] [address] Care Team Providers Care Hand Embroiderer Name Role Phone Community, Pcp Primary Care Provider Julia Eid MD Primary Care Provider Lola mares Reason for Visit * Reason Onset Date Comments REFERRAL 08/25/2018 Encounter Details Date Type Department Care Team Description 08/25/2018 Telephone [facility] [address] [place] [address] [facility] [address] [place] [address] REFERRAL Social History Tobacco Use Types Packs/Day Years Used Date Smoking Tobacco: Never Smokeless Tobacco: Never Alcohol Use Standard Drinks/Week Comments No 0 (1 standard drink = 0.6 oz pur e alcohol) Sex Assigned at Date Recorded Not on file documented as of this encounter Miscellaneous Notes * Telephone Encounter - Nina Conklin - 08/25/2018 11:21 AM EDT Thank you. I will contact the pt once the auth has been received. Pt is aware it may take a week. * Telephone Encounter - Vijay Patton PA-C - 08/25/2018 11:15 AM EDT Treatment sleep study order was placed today. * Telephone Encounter - Nina Conklin - 08/25/2018 11:04 AM EDT Pt calling to schedule sleep study. Pt had to canx last study due to surgery and would now like to reschedule. Please enter a new order if appropriate so I may schedule the pt. Thank you. Permission given to call Mariama betancur at [phone] or Yael at [phone] concerning the sleep study. Pt only speaks mozambican. documented in this encounter Plan of Treatment Not on file documented as of this encounter Visit Diagnoses Not on filedocumented in this encounter Care Teams Hand Embroiderer Relationship Specialty Start Date End Date [facility], Pcp PCP - General Internal Medicine 09/30/17 08/01/23 Julia Oviedo MD PCP - General Internal Medicine 08/02/23 documented as of this encounter
--- OUTSIDE RECORDS SUMMARY | 2024-09-14 11:56 | XMS_ITS | Encounter Summary ---
Author Organization [facility] Address [address] [place] [address] Care Team Providers Care Embedded Software Development Engineer Name Role Phone Julia Oviedo MD Primary Care Provider Lola mares Encounter Details Date Type Department Care Team Description 08/02/2023 [facility] Records [facility] - [facility] 175 [facility] [address] [place] [phone] Vijay Powell DPM 175 [facility] [address] [place] [address] Social History Tobacco Use Types Packs/Day Years [...] filedocumented in this encounter Care Teams Embedded Software Development Engineer Relationship Specialty Start Date End Date Julia Oviedo MD PCP - General Internal Medicine 08/02/23 documented as of this encounter
--- OUTSIDE RECORDS SUMMARY | 2024-09-14 11:56 | XMS_ITS | Encounter Summary ---
Author Organization [facility] Address [address] [place] [address] Care Team Providers Care Dentist Attendant Name Role Phone Gretel So MD Primary Care Provider Mario Lucas Primary Care Provider Kristie Mejia, Pcp Primary Care Provider Julia Eid MD Primary Care Provider Lola mares Reason for Visit * Reason Comments E-prescribe Rx Request Encounter Details Date Type Department Care Team Description 07/25/2017 Refill Dermatology - [address] [phone] Lindy Pelaez PA-C E-prescribe Rx Request Social History Tobacco Use Types Packs/Day Years Used Date Smoking Tobacco: Never Smokeless Tobacco: Never Alcohol Use Standard Drinks/Week Comments No 0 (1 standard drink = 0.6 oz pur e alcohol) Sex Assigned at Date Recorded Not on file documented as of this encounter Miscellaneous Notes * Telephone Encounter - Keri Cool [place] - 07/25/2017 1:33 PM EST [place] 05/30/17 no f/u scheduled documented in this encounter Plan of Treatment Not on file documented as of this encounter Visit Diagnoses Not on filedocumented in this encounter Care Teams Dentist Attendant Relationship Specialty Start Date End Date Gretel So MD PCP - General Internal Medicine 05/17/17 08/31/17 Mario Torres PCP - General Internal Medicine 09/01/17 09/29/17 [facility], Pcp PCP - General Internal Medicine 09/30/17 08/01/23 Julia Oviedo MD PCP - General Internal Medicine 08/02/23 documented as of this encounter
--- OUTSIDE RECORDS SUMMARY | 2024-09-14 11:56 | XMS_ITS | Encounter Summary ---
Author Organization [facility] Address [address] [place] [address] Care Team Providers Care Organisational Psychologist Name Role Phone Community, Pcp Primary Care Provider Julia Eid MD Primary Care Provider Lola mares Reason for Visit * Reason Onset Date Comments Testing 08/25/2018 sleep study Encounter Details Date Type Department Care Team Description 08/25/2018 Telephone Pulmonology - [place] 175 [facility] [address] [place] [address] Vijay Patton PA-C [address] [facility] [address] [place] [phone] Testing (sleep study) Social History [...] on filedocumented in this encounter Care Teams Organisational Psychologist Relationship Specialty Start Date End Date Community, Pcp PCP - General Internal Medicine 09/30/17 08/01/23 Julia Oviedo MD PCP - General Internal Medicine 08/02/23 documented as of this encounter
--- OUTSIDE RECORDS SUMMARY | 2024-09-14 11:57 | XMS_ITS | Encounter Summary ---
Author Organization [facility] Address [address] [place] [address] Care Team Providers Care Hotel Maid Name Role Phone Mario Torres Primary Care Provider Kristie Mejia, Pcp Primary Care Provider Julia Eid MD Primary Care Provider Lola mares Reason for Visit * Reason Onset Date Comments REFERRAL 09/15/2017 Encounter Details Date Type Department Care Team Description 09/15/2017 Telephone Allergy - [address] [phone] Wilma Elaine MD REFERRAL Social History Tobacco [...] Emergency - visit today or tomorrow. Not third-democrat related documented in this encounter Plan of Treatment Not on file documented as of this encounter Visit Diagnoses Not on filedocumented in this encounter Care Teams Hotel Maid Relationship Specialty Start Date End Date Mario Torres PCP - General Internal Medicine 09/01/17 09/29/17 Community, Pcp PCP - General Internal Medicine 09/30/17 08/01/23 Julia Oviedo MD PCP - General Internal Medicine 08/02/23 documented as of this encounter
--- OUTSIDE RECORDS SUMMARY | 2024-09-14 11:57 | XMS_ITS | Encounter Summary ---
Author Organization [facility] Address [address] [place] [address] Care Team Providers Care Assembly And Packing Supervisor Name Role Phone Julia Oviedo MD Primary Care Provider Lola mares Encounter Details Date Type Department Care Team Description 02/09/2024 SCAN [facility] Medical [facility] - [facility] [address] [facility] [address] [place] [phone] Vijay Powell DPM 175 [facility] [address] [place] [address] Social History Tobacco Use Types Packs/Day Years [...] on filedocumented in this encounter Care Teams Assembly And Packing Supervisor Relationship Specialty Start Date End Date Julia Oviedo MD PCP - General Internal Medicine 08/02/23 documented as of this encounter
--- OUTSIDE RECORDS SUMMARY | 2024-09-14 11:57 | XMS_ITS | Encounter Summary ---
Author Organization [facility] Address [address] [place] [address] Care Team Providers Care Front Elevator Operator Name Role Phone Julia Oviedo MD Primary Care Provider Lola mares Reason for Visit * Reason Onset Date Comments Note, Other 04/12/2024 Encounter Details Date Type Department Care Team Description 04/12/2024 Telephone [facility] 175 [facility] [address] [place] [phone] Vijay Powell DPM 175 [facility] [address] [place] [phone] Note, Other Social History Tobacco Use Types Packs/Day Years Used Date Smoking Tobacco: Never Smokeless Tobacco: Never Alcohol Use Standard Drinks/Week Comments No 0 (1 standard drink = 0.6 oz pur e alcohol) Sex Assigned at Date Recorded Not on file documented as of this encounter Miscellaneous Notes * Telephone Encounter - Josee Dale - 04/12/2024 10:54 AM EDT Pt was seen in office today, she was wondering If Dr. Powell would recommend an assisted device in order to keep the weight off her right heel. If so, the pt was wondering if the insurance would cover the assisted device. Please advise. Good number for pt - [phone] documented in this encounter Plan of Treatment Not on file documented as of this encounter Visit Diagnoses Not on filedocumented in this encounter Care Teams Front Elevator Operator Relationship Specialty Start Date End Date Julia Oviedo MD PCP - General Internal Medicine 08/02/23 documented as of this encounter
--- OUTSIDE RECORDS SUMMARY | 2024-09-14 11:57 | XMS_ITS | Clinical Summary ---
Author Organization [facility] Address [address] [place] [address] Care Team Providers Care Drier Operator Head Name Role Phone Julia Oviedo MD Primary [...] OR Take by mouth. 0 Active Fiber, [place] Dextrin, Powder Take by mouth. 0 Active Linaclotide 145 MCG Cap Take by mouth. 0 Active senna (SENOKOT) 8.6 MG tablet Take 1 tablet by mouth daily. 0 Active gemfibrozil (LOPID) 600 MG tablet Take 600 mg by mouth 2 times daily (before meals). 0 Active Viczkjg-Nxwaplszw-Lp tamin D (CALCIUM 500 OR) Take by [...] 11/13/2009 SHINGLES VACCINE (1 of 2) 11/13/2009 BMI CHECK/ADVISE 06/13/2024 04/03/2018, 02/2018, 05/17/2017 DEPRESSION SCREENING/FOLLOWUP 06/13/2024 SOCIAL NEEDS SCREENING 06/13/2024 INFLUENZA (Season Ended) 2025 DTAP/TDAP/TD (2 - Td or Tdap) 01/13/2026 01/14/2016 HEPATITIS C SCREENING Completed 10/07/2016 Care Teams Drier Operator Head Relationship Specialty Start Date End Date Julia Oviedo MD PCP - General Internal Medicine 08/02/23
--- OUTSIDE RECORDS SUMMARY | 2024-09-14 11:57 | XMS_ITS | Clinical Summary ---
Author Organization 175 [facility] Address [address] [place] [address] Phone Care Team Providers Care Director Of Philanthropy Name Role Phone Julia Oviedo MD Primary Care Provider [phone] Allergies Active Allergy Reactions Criticality Noted Date [...] (two) times a day. Active INV A35-006 [id number] 3-1 gram packet Take 1 packet by mouth. Take ordered dose of [id number] as directed in the absence of the emergence of diarrhea or sustained nausea. To prepare, add one packet to 250 mL (8 oz) of room temp water, stir well, and drink within 60 minutes. Active Active Problems Problem Noted Date Diagnosed [...] Care Team Description 08/01/[address] [facility] [address] [phone] Vijay Powell DPM Medicaiton questions 07/17/[address] [facility] [address] [phone] Vijay Powell DPM from Last 3 Months Surgical History [...] 08/01/2024 12:00 PM EST Plan of Treatment Scheduled Procedures Name Priority Associated Diagnoses Date/Ti me EXCISION LESION SOFT TISSUE FOOT Other bursal cyst, right ankle and foot Health Maintenance Due Date Last Done Comments [...] 3-dose series) 07/29/2016 02/26/2016, 01/27/2016 RSV Immunization Adult Patients (1 - Risk 60-74 years 1-dose series) [...] Most Recently Relevant to Health Maintenance Insurance [facility] Care Teams Director Of Philanthropy Relationship Specialty Start Date End Date Julia Oviedo MD [address] [facility] , [address] [facility] D/B/A: Kaitlyn Mcclendon In Internal Medicine [place], [place] PCP - General 08/02/23
--- OUTSIDE RECORDS SUMMARY | 2024-09-14 11:57 | XMS_ITS | Data Portability ---
Author Organization [place] [facility] Address [address] [address] Care Team Providers Care Construction Checker Name Role Phone SUNIL LA Primary Care [...] weeks for reevaluation. All questions were answered. [email or web address] Not available 11/11/2023 13:48:47 11/29/2023 11/29/2023 Left-sided [...] cleaning and maintenance to prevent future otorrhea. [email or web address] Not available 05/28/2024 20:02:08 Plan of Treatment [...] 1 %-0.05 % topical cream 2023 024 [facility]acy #[id number], [address] [place], [address], 05/29/2024 13:38:28 ciproflox acin 750 mg tablet 2023 024 [email or web address] [facility]/Pharmacy #[id number], [address] [place], [address], 11/29/2023 16:05:50 clotrimaz ole-betam ethasone 1 %-0.05 % topical cream 2023 024 [facility] #[id number], [address] [place], [address], 11/03/2023 12:17:27 Patient TargetsNo targets recorded. Patient [...] and Address Organization Details Recorded Time Headache 53281797 Active 2018 Facial pain NOS; Note: Date Diagnose d: 9 2:54 PM (R51) Not Available [facility] 4 02:53:44 Eczema NOS Active 2016 Eczema NOS; Note: Date Diagnose d: 05/12/20 17 4:20 PM (L30.9) Not Available [facility] 4 02:53:42 Dysphagi a 05783140 Active 2016 Dysphagi a, unspecif ied; Note: Date Diagnose d: 05/12/20 17 4:27 PM (R13.10) Not Available [facility] 4 02:53:43 Dizzines s and giddines s 064592560 Active 2016 Dizzines s and giddines s; Note: Date Diagnose d: 7 12:36 PM (R42) Not Available [facility] 4 02:53:47 Bilatera l earache 826505328 Active 2016 Otalgia, bilatera l; Note: Date Diagnose d: 04/12/20 17 3:29 PM (H92.03) Not Available [facility] 4 02:53:46 Otitis externa of bilatera l ears 66121480403 17568 Completed 201601/13/2024 Other otitis externa, bilatera l; Note: Date Diagnose d: 7 12:35 PM (H60.8X3 ) Not Available [facility] 4 02:53:47 Impacted cerumen of bilatera l ears 42311155041 95099 Active 2022 Impacted cerumen, bilatera l; Note: Date Diagnose d: 3 3:33 PM (H61.23) Not Available [facility] 4 02:53:48 Bilatera l tympanic membrane central perforat ion 01300214388 46709 Active 2020 Central perforat ion of tympanic membrane , bilatera l; Note: Date Diagnose d: 1 3:12 PM (H72.02) Not Available [facility] 4 02:53:44 Mixed 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, bilatera l 906638249 Active 2016 Mixed 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, bilatera l; Note: Date Diagnose d: 7 11:53 AM (H90.6) Not Available [facility] 4 02:53:43 Bilatera l disorder of Eustachi an tubes 06472535529 51621 Active 2016 Other specifie d disorder s of Eustachi an tube, bilatera l; Note: Date Diagnose d: 7 12:35 PM (H69.83) Not Available [facility] 4 02:53:45 Otalgia of left ear 1011507761 Active 2020 Otalgia, left ear; Note: Date Diagnose d: 03/27/20 21 10:35 AM (H92.02) Not Available [facility] 4 02:53:44 Diffuse otitis externa 31250865 Active 2020 Diffuse otitis externa, left ear; Note: Date Diagnose d: 09/18/2020 3:45 PM (H60.312 ) Not Available [facility] 4 02:53:46 Nasal congesti on 89400394 Active 2016 Nasal congesti on; Note: Date Diagnose d: 04/12/20 17 3:28 PM (R09.81) Not Available [facility] 4 02:53:46 Chronic pharyngi tis 734805 Active 2016 Chronic sore throat; Note: Date Diagnose d: 05/12/20 17 4:24 PM (J31.2) Not Available [facility] 4 02:53:43 Pain of left temporom andibula r joint 55927417791 709826 Active 2020 Arthralg ia of left temporom andibula r joint; Note: Date Diagnose d: 03/27/20 21 10:35 AM (M26.622 ) Not Available [facility] 4 02:53:45 Allergic rhinitis 45785569 Active 2018 Other allergic rhinitis ; Note: Date Diagnose d: 9 2:55 PM (J30.89) Not Available [facility] 4 02:53:47 Otalgia 53803940 Active 2020 Otalgia; Note: Date Diagnose d: 03/27/20 21 10:33 AM (388.70) Not Available [facility] 4 02:53:44 Acute infectiv e otitis externa 471353181 Active 2023 LUCA VARGAS PA-C [address] [place] [address], [place], [address] , [facility] - [facility] 4 12:08:57 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 LUCA VARGAS PA-C [address] [facility],[place] [address], [place], [address] , [place] - [facility] 4 12:09:27 Chronic mycotic otitis externa 421062834 Active 2023 LUCA VARGAS PA-C [address] [facility],[place] [address], [place], [address] , [facility] - [facility] 4 12:09:27 Candidal otitis externa 27234940 Active 2023 LUCA VARGAS PA-C [address] [place] [address],[place] [address], [place], [address] , [place] - [facility] 4 12:09:27 Bilatera l perforat ion of tympanic membrane s 60954776513 84859 Active 2023 LUCA VARGAS PA-C [address] [facility],[place] [address], [place], [address] , [place] - [facility] 4 12:10:39 Cellulit is of face 510892879 Active 2023 KUSUM BARTLETT PA-C [address] [facility],[place] [address], [place], [address] , [place] - [facility] 4 13:49:33 Otorrhea of left ear 33236401660 55000 Active 2023 Otorrhea , left ear; Note: Date Diagnose d: 09/14/2023 3:39 PM (H92.12) Not Available [facility] 4 02:53:47 Problem Notes None recorded. Procedures Surgical History Date Name Laterality Status Provider Name and Address Organization Details Recorded Time 05/29/20 24 Cerumen removal with microscope bilateral completed RAYNA GAY MD [address] [facility],[place] [address], [place], [phone], [place] - [facility] 05/29/2024 13:41:27 05/31/20 24 Cerumen removal without microscope right completed KUSUM BARTLETT PA-C [address] [place] [address],[address], [phone], [facility] - [facility] 11/11/2023 13:46:54 Carpal tunnel surgery completed Sunil Bermeo [place] - [facility] 11/03/2023 11:50:12 cholecystectomy completed Sunil Bermeo [place] [facility] 11/03/2023 11:50:21 Imaging Results Imaging Date Name Status LastModified by [facility] Details LastModified Time 07/29/2022 imaging/diag nostic result [...] Name and Address Organization Details Recorded Time 76596 celecoxib medicatio n other Not available Not available 10/25/2023 42631 7 RxNorm React ion: unkno wn, unspe cifie d;; Not Available [facility] 4 00:49:36 30041 pregabali n medicatio n other Not available Not available 10/25/2023 88206 2 RxNorm React ion: unkno wn, unspe cifie d;; Not Available [facility] 4 00:49:49 Medications Name Sig Start Date Stop Date Status Note LastModified by Organization Details LastModified Time amoxicill in 500 mg capsule TOME 1 C PSULA ORALLY EVERY 12 HOURS FOR 7 DAYS 11/28 completed Not Available Not Available Not Available neomycin- polymyxin -hydrocor t 3.5 mg/mL-10, 000 unit/mL-1 % ear solution 01/10 completed Medicati on ID: [id number] D uration Value: 10 Reason: () Brand [...] mg capsule 01/10 completed Medicati on ID: 287684 D uration Value: 30 Reason: () Brand Name: jaymie n Send Method: E-Prescr ibed Sub s Allowed: subs OK Medic ationGen ericName : acitreti n Not Available Not Available Not Available fluconazo le 150 mg tablet PLEASE SEE ATTACHED FOR DETAILED DIRECTIO NS active Not Available Not Available No t Available Senna Lax 8.6 mg tablet 2016 active Medicati on ID: 257939 D uration Value: 30 Brand Name: Senna [...] affected area 2016 active Medicati on ID: 772061 D uration Value: 14 Prescri bed By [...] mg tablet 01/10 completed Medicati on ID: [id number] D uration Value: 30 Reason: () Brand Name: Fiber Laxative (ca polycarb o) Send Method: E-Prescr ibed Sub s Allowed: subs OK Speci al Instruct ion: TAKE 1-2 CAPSULES TWICE A DAY ORALLY 30 DAYS Med icationG enericNa me: Fiber Laxative (ca polycarb o) Not Available Not Available Not Available sumatript an 25 mg tablet 2018 active Medicati on ID: 349898 D uration Value: 30 Brand Name: sumatrip [...] mg tablet 01/10 completed Medicati on ID: 671279 D uration Value: 9 Reason: () Brand [...] twice a day active Medicati on ID: 310172 D uration Value: 10 Prescri bed By Name: SESAR Deluca nd Name: ofloxaci n Send Method: E-Prescr ibed Sub s Allowed: subs OK Medic ationGen ericName : ofloxaci n Not Available Not Available Not Available Gas Relief (simethic one) 125 mg capsule 01/10 completed Medicati on ID: 395319 D uration Value: 30 Reason: () Brand Name: Gas Relief S end Method: E-Prescr ibed Sub s Allowed: subs [place] Speci al Instruct ion: TOME FATMATA CAPSULA POR VIA ORAL DOS VECES AL CAT CUANDO SEA NECESARI O Medica tionGene ricName: Gas Relief Not Available Not Available Not Available Vitamin C 1,000 mg tablet 2016 active Medicati on ID: 930782 D uration Value: 30 Brand Name: Vitamin [...] mg tablet 2020 active Medicati on ID: 017413 B rand Name: baclofen Send Method: E-Prescr ibed Sub s Allowed: subs [place] Speci al Instruct ion: TOME FATMATA TABLETA POR V A ORAL CADA OCHO HORAS PARA EL ESPASMO MUSCULAR CUANDO SEA NECESARI O Medica tionGene ricName: baclofen Not Available Not Available Not Available benzonata te 100 mg capsule 01/10 completed Medicati on ID: 095077 D uration Value: 10 Reason: () Brand Name: benzonat ate Send Method: E-Prescr ibed Sub s Allowed: subs OK Medic ationGen ericName : benzonat ate Not Available Not Available Not Available gemfibroz il 600 mg tablet 2018 active Medicati on ID: 332060 D uration Value: 30 Brand Name: gemfibro [...] iron) tablet 2020 active Medicati on ID: 009775 B rand Name: ferrous sulfate Send Method: [...] eye drops 01/10 completed Medicati on ID: 913346 D uration Value: 10 Reason: () Brand [...] solution Apply 11/02 completed Medicati on ID: 940533 D uration Value: 14 Prescri bed By Name: SESAR Roman nd Name: clotrima zolleena [place] Method: E-Prescr ibed Sub s Allowed: subs OK Speci al Instruct ion: 4 drops to both ears BID x 2 weeks Me dication GenericN luciano: clotrima zole Med ication ID: [id number] D uration Value: 14 Prescri bed By [...] mg capsule 2016 active Medicati on ID: 030616 D uration Value: 30 Brand Name: gabapent in Send Method: E-Prescr ibed Sub s Allowed: subs OK Speci al Instruct ion: TOME FATMATA CAPSULA TODOS LOS BAKER Med icationG enericNa me: gabapent in Not Available Not Available Not Available omeprazol e 20 mg capsule,d elayed release 2016 active Medicati on ID: 222124 D uration Value: 30 Brand Name: omeprazo [...] tended release 2016 active Medicati on ID: 410751 D uration Value: 5 Brand Name: Mapap [...] unit) capsule 2016 active Medicati on ID: 782519 D uration Value: 30 Brand Name: Vitamin [...] as directed 2021 active Medicati on ID: 157610 D uration Value: 14 Brand Name: Ciprodex Send Method: E-Prescr ibed Sub s Allowed: subs OK Speci al Instruct ion: x 14 days Med icationG enericNa me: Ciprodex Not Available Not Available Not Available rosuvasta tin 20 mg tablet 01/10 completed Medicati on ID: 976469 D uration Value: 30 Reason: () Brand Name: rosuvast atin Sen d Method: E-Prescr ibed Sub s Allowed: subs OK Speci al Instruct ion: TOME FATMATA TABLETA TODOS LOS BAKER Med icationG enericNa me: rosuvast atin Not Available Not Available Not Available cranberry extract 500 mg capsule 2016 active Medicati on ID: 701110 D uration Value: 30 Brand Name: cranberr y extract Send Method: E-Prescr ibed Sub s Allowed: subs OK Speci al Instruct ion: TOME FATMATA CAPSULA POR VIA ORAL TODOS LOS BAKER SCOTT LO INDICADO Medicat ionGener icName: cranberr y extract Not Available Not Available Not Available Fiber Therapy (methylce llulose) 500 mg tablet 01/10 completed Medicati on ID: 198082 D uration Value: 30 Reason: () Brand [...] elayed release 01/10 completed Medicati on ID: 167912 D uration Value: 30 Reason: () Brand Name: duloxeti ne Send Method: E-Prescr ibed Sub s Allowed: subs OK Speci al Instruct ion: TOME FATMATA CAPSULA POR VIA ORAL TODOS LOS BAKER Med icationG enericNa me: duloxeti ne Not Available Not Available Not Available ProAir HFA 90 mcg/actua tion aerosol inhaler 2 puff 2018 active Medicati on ID: 873872 D uration Value: 30 Brand Name: ProAir [...] aerosol spray 2018 active Medicati on ID: 136121 D uration Value: 30 Brand Name: QNASL [...] both nostrils 2018 active Medicati on ID: 330847 D uration Value: 120 Prescri bed By Name: Minda barger MD Brand Name: Flonase Allergy Relief S end Method: E-Prescr ibed Sub s Allowed: subs OK Medic ationGen ericName : Flonase Allergy Relief Not Available Not Available Not Available Trulance 3 mg tablet 2018 active Medicati on ID: 285917 D uration Value: 30 Brand Name: Trulance [...] Updated DateTime 11/11/2023 154.94 cm 28.2 kg/m2 09053.26 g Sunil Bermeo [facility] 11/11/2023 13:07:26 Date Recorded Body height Body mass index (BMI) Body weight Provider Name and Address Organization Details Last Updated DateTime 05/29/2024 154.94 cm 28.3 kg/m2 29140.86 g Norm Burgess [facility] 05/29/2024 13:30:36 Social History None recorded. [...] Note 1312 MINDA MAIER MD [facility] [address] [address] 11/03/2023 11:38:00 11/03/2023 12:34:18 Chronic mycotic otitis externa 984024275 H60.399 Previously found to be fungal via culture Bilateral perforation of tympanic membranes 8629044080 891866 H72.93 2195 DAGO GODOY MD [facility] [address] [address] 11/11/2023 12:58:21 11/11/2023 13:33:03 Bilateral disorder of Eustachian tubes 1754465350 526439 H69.83 Bilateral perforation of tympanic membranes 4773869045 419690 H72.93 Cellulitis of face 2001 L03.211 4579 RAYNA GAY MD [facility] [address] [place] [address] 11/29/2023 15:24:29 11/29/2023 16:27:24 Bilateral disorder of Eustachian tubes 9744182135 893734 H69.83 Bilateral tympanic membrane central perforation 3915425768 452276 H72.03 Mixed cond uctive and sensorineural hearing loss, bilateral 323596892 H90.6 87156 RAYNA GAY MD [facility] [address] [address] 05/29/2024 13:13:55 05/29/2024 13:43:03 Bilateral disorder of Eustachian tubes 3252546250 939893 H69.83 Bilateral tympanic membrane central perforation 6004903361 085757 H72.03 Mixed cond uctive and sensorineural hearing loss, bilateral 143899795 H90.6 Dermal mycosis 35173804 B36.9 The skin of the {{right le [...] . Impacted c erumen of bilateral ears 9764621002 172995 H61.23 Health Concerns Section Related Observation LastModified by Organization Detai ls LastModified Time None Recorded Concern Status LastModified by Organization Details LastModified Time None Recorded Advance Directives Directive None Recorded Payers Encounter Date Sequence Insurance Name Policy Number Policy Munguia Covered Member ID Munguia Member ID Guarantor Name 11/03/2023 1 [facility] (MEDICAID HMO) MIGUEL Medley Ady [id number] Raquel Medley Ady 11/11/2023 1 [facility] (MEDICAID HMO) MIGUEL Medley Ady [id number] Raquel Medley Ady 11/29/2023 1 [facility] (MEDICAID HMO) MIGUEL Medley Ady [id number] Raquel Medley Ady 05/29/2024 1 [facility] (MEDICAID HMO) MIGUEL Medley Ady [id number] Raquel Garsia Notes Date Note Type Note Provider Name and Address Organization Details Recorded Time 11/03/2023 text/html 62 year old marie avelar presents with family member, who provides interpretation services and family declined professional translator/interpreter, for evaluation of the left ear. Patient reports she has not taken any drops since early September. The ear is very itchy and there is non-pulsatile tinnitus. No otalgia. There is a little dampness but no elmer otorrhea. Wearing her hearing aids every day. When she removes them she cleans with water and soap and a brush. LUCA VARGAS PA-C [address], [address], [facility] 11/03/2023 15:33:16 11/11/2023 text/html 62-year-old marie [...] behind the ear. DAGO GODOY MD [address] [facility],[address], [address], [facility] 11/11/2023 17:21:42 11/29/2023 text/html 63-year-old marie avelar with chronic history of ear disease who has been a patient in the office since 2017. She comes in today accompanied by her daughter who is helping to translate Lithuanian. Patient recently had prolonged episode of left-sided otorrhea which was treated with a combination of antifungal and antibacterial's. Patient notes no further left-sided ear discharge. Patient did have some bleeding during treatment of the left ear which has since resolved. Patient currently using binaural amplification dispensed at [facility] audiology. She has bilateral mixed hearing loss. RAYNA GAY MD [address] [place] [address],[address], [address], [facility] 11/29/2023 17:21:59 05/29/2024 text/html 63-year-old marie [...] her daughter who is helping to translate Lithuanian. Patient currently using binaural amplification dispensed at [facility] audiology. She has bilateral mixed hearing loss. Patient comes in today for preventative ear cleaning. Patient comes in today accompanied by her daughter. She is helping to translate Lithuanian. Patient reports itchiness in her ears. RAYNA GAY MD [address] [place] [address],[address], [address], [facility] 05/29/2024 13:42:11 OBGyn Episode No OBEpisode recorded.
--- OUTSIDE RECORDS SUMMARY | 2024-09-14 11:57 | XMS_ITS | Encounter Summary ---
Author Organization [facility] Address [address] [place] [address] Care Team Providers Care Knife Operator Name Role Phone Julia Oviedo MD Primary Care Provider Lola mares Encounter Details Date Type Department Care Team Description 12/07/2023 SCAN [facility] 175 [facility] [address] [place] [phone] Vijay Powell DPM 175 [facility] [address] [place] [address] Social History Tobacco Use Types Packs/Day Years [...] on filedocumented in this encounter Care Teams Knife Operator Relationship Specialty Start Date End Date Julia Oviedo MD PCP - General Internal Medicine 08/02/23 documented as of this encounter
--- OUTSIDE RECORDS SUMMARY | 2024-09-14 11:57 | XMS_ITS | Encounter Summary ---
Author Organization [facility] Address [address] [place] [address] Care Team Providers Care Drill Press Operator Name Role Phone Gretel So MD Primary Care Provider Mario Lucas Primary Care Provider Kristie Mejia, Pcp Primary Care Provider Julia Eid MD Primary Care Provider Lola mares Encounter Details Date Type Department Care Team Description 05/23/2017 Transfer Records Medical Records [address] [place] [id number] Abstract, Provider Social History Tobacco Use Types [...] on filedocumented in this encounter Care Teams Drill Press Operator Relationship Specialty Start Date End Date Gretel So MD PCP - General Internal Medicine 05/17/17 08/31/17 Mario Torres PCP - General Internal Medicine 09/01/17 09/29/17 Jackie, Pcp PCP - General Internal Medicine 09/30/17 08/01/23 Julia Oviedo MD PCP - General Internal Medicine 08/02/23 documented as of this encounter
== END 2024-09-14 10:30 | disposition home or self-care (01) ==
LOC: HO.HMGCX 10:29
PROVIDERS: PCP Internal Medicine
DX: R10.11 Right upper quadrant pain (principal); R19.8 Other specified symptoms and signs involving the digestive system and abdomen
CPT/HCPCS: 76705

== ENCOUNTER → 2024-09-14 10:33 | Outpatient (BNV) | payer OTHER, SELFPAY | PROVIDERS: PCP Internal Medicine; Visit Provider Radiology Diagnostic Radiology | DX: R10.11 Right upper quadrant pain (principal) | CPT/HCPCS: 76705 ==

== ENCOUNTER 2024-10-01 14:17 | Outpatient (AMB) | payer OTHER, SELFPAY ==
--- OUTSIDE RECORDS SUMMARY | 2024-10-01 14:20 | XMS_ITS | Encounter Summary ---
Author Organization [facility] Address [address] [place] [address] Care Team Providers Care American Sign Language Interpreter Name Role Phone Julia Oviedo MD Primary Care Provider Lola mares Encounter Details Date Type Department Care Team Description 08/02/2023 [facility] Records [facility] 175 [facility] [address] [place] [address] [phone] Vijay Powell DPM 175 [facility] [address] [place] [address] Social History Tobacco Use Types Packs/Day Years [...] on filedocumented in this encounter Care Teams American Sign Language Interpreter Relationship Specialty Start Date End Date Julia Oviedo MD PCP - General Internal Medicine 08/02/23 documented as of this encounter
--- OUTSIDE RECORDS SUMMARY | 2024-10-01 14:20 | XMS_ITS | Encounter Summary ---
Author Organization [facility] Address [address] [place] [address] Care Team Providers Care Dope Heater Name Role Phone Julia Oviedo MD Primary Care Provider Lola mares Reason for Visit * Reason Onset Date Comments Note, Other 04/12/2024 Encounter Details Date Type Department Care Team Description 04/12/2024 Telephone [facility] - [facility] 175 [facility] [address] [place] [address] [phone] Vijay Powell DPM 175 [facility] [address] [place] [phone] Note, Other Social History Tobacco Use Types [...] Please advise. Good number for pt - [phone] documented in this encounter Plan of Treatment Not on file documented as of this encounter Visit Diagnoses Not on filedocumented in this encounter Care Teams Dope Heater Relationship Specialty Start Date End Date Julia Oviedo MD PCP - General Internal Medicine 08/02/23 documented as of this encounter
--- OUTSIDE RECORDS SUMMARY | 2024-10-01 14:20 | XMS_ITS | Encounter Summary ---
Author Organization [facility] Address [address] [place] [address] Care Team Providers Care Clinical Research Administrator Name Role Phone Community, Pcp Primary Care Provider Julia Eid MD Primary Care Provider Lola mares Reason for Visit * Reason Onset Date Comments REFERRAL 08/25/2018 Encounter Details Date Type Department Care Team Description 08/25/2018 Telephone [facility] [address] [place] [address] [facility] [address] [place] [address] REFERRAL Social History Tobacco Use Types Packs/Day [...] Permission given to call Mariama betancur at [phone] or Yael at [phone] concerning the sleep study. Pt only speaks irish. documented in this encounter Plan of Treatment Not on file documented as of this encounter Visit Diagnoses Not on filedocumented in this encounter Care Teams Clinical Research Administrator Relationship Specialty Start Date End Date [facility], [facility], Pcp PCP - General Internal Medicine 09/30/17 08/01/23 Julia Oviedo MD PCP - General Internal Medicine 08/02/23 documented as of this encounter
--- OUTSIDE RECORDS SUMMARY | 2024-10-01 14:20 | XMS_ITS | Encounter Summary ---
Author Organization [facility] Address [address] [place] [address] Care Team Providers Care Paper Products Machine Operator Name Role Phone Community, Pcp Primary Care Provider Julia Eid MD Primary Care Provider Lola mares Encounter Details Date Type Department Care Team Description 10/26/2018 Release of Information Medical Records [address] [place] [id number] Abstract, Provider Social History Tobacco Use Types [...] on filedocumented in this encounter Care Teams Paper Products Machine Operator Relationship Specialty Start Date End Date Community, Pcp PCP - General Internal Medicine 09/30/17 08/01/23 Julia Oviedo MD PCP - General Internal Medicine 08/02/23 documented as of this encounter
--- OUTSIDE RECORDS SUMMARY | 2024-10-01 14:20 | XMS_ITS | Clinical Summary ---
Author Organization [facility] Address [address] [place] [address] Care Team Providers Care Poultry Raiser Name Role Phone Julia Oviedo MD Primary [...] OR Take by mouth. 0 Active Fiber, [place] Dextrin, Powder Take by mouth. 0 Active Linaclotide 145 MCG Cap Take by mouth. 0 Active senna (SENOKOT) 8.6 MG tablet Take 1 tablet by mouth daily. 0 Active gemfibrozil (LOPID) 600 MG tablet Take 600 mg by mouth 2 times daily (before meals). 0 Active Vccyidj-Mggaovcjo-Ly tamin D (CALCIUM 500 OR) Take by [...] HEPATITIS C SCREENING Completed 10/07/2016 Care Teams Poultry Raiser Relationship Specialty Start Date End Date Julia Oviedo MD PCP - General Internal Medicine 08/02/23
--- OUTSIDE RECORDS SUMMARY | 2024-10-01 14:20 | XMS_ITS | Encounter Summary ---
Author Organization [facility] Address [address] [place] [address] Care Team Providers Care Mosaic Layer Name Role Phone Mario Torres Primary Care Provider Kristie Mejia, Pcp Primary Care Provider Julia Eid MD Primary Care Provider Lola mares Reason for Visit * Reason Onset Date Comments REFERRAL 09/15/2017 Encounter Details Date Type Department Care Team Description 09/15/2017 Telephone Allergy - [address] [phone] Wilma Elaine MD REFERRAL Social History Tobacco [...] Emergency - visit today or tomorrow. Not third-libertarian related documented in this encounter Plan of Treatment Not on file documented as of this encounter Visit Diagnoses Not on filedocumented in this encounter Care Teams Mosaic Layer Relationship Specialty Start Date End Date Mario Torres PCP - General Internal Medicine 09/01/17 09/29/17 Community, Pcp PCP - General Internal Medicine 09/30/17 08/01/23 Julia Oviedo MD PCP - General Internal Medicine 08/02/23 documented as of this encounter
--- OUTSIDE RECORDS SUMMARY | 2024-10-01 14:20 | XMS_ITS | Encounter Summary ---
Author Organization [facility] Address [address] [place] [address] Care Team Providers Care Recruit Instructor Name Role Phone Community, Pcp Primary Care Provider Julia Eid MD Primary Care Provider Lola mares Reason for Visit * Reason Onset Date Comments Testing 08/25/2018 sleep study Encounter Details Date Type Department Care Team Description 08/25/2018 Telephone Pulmonology - [place] 175 [facility] [address] [place] [phone] Vijay Patton PA-C [address] [facility] [address] [place] [phone] Testing (sleep study) Social History [...] on filedocumented in this encounter Care Teams Recruit Instructor Relationship Specialty Start Date End Date Community, Pcp PCP - General Internal Medicine 09/30/17 08/01/23 Julia Oviedo MD PCP - General Internal Medicine 08/02/23 documented as of this encounter
--- OUTSIDE RECORDS SUMMARY | 2024-10-01 14:20 | XMS_ITS | Encounter Summary ---
Author Organization [facility] Address [address] [place] [address] Care Team Providers Care Laborer Shellfish Processing Name Role Phone Julia Oviedo MD Primary Care Provider Lola mares Encounter Details Date Type Department Care Team Description 02/09/2024 SCAN [facility] - [facility] 175 [facility] [address] [place] [phone] Vijay Powell DPM 175 [facility] [address] [place] [address] Social History Tobacco Use Types Packs/Day Years [...] on filedocumented in this encounter Care Teams Laborer Shellfish Processing Relationship Specialty Start Date End Date Julia Oviedo MD PCP - General Internal Medicine 08/02/23 documented as of this encounter
--- OUTSIDE RECORDS SUMMARY | 2024-10-01 14:21 | XMS_ITS | Clinical Summary ---
Author Organization 175 [facility] Address [address] [place] [address] Phone Care Team Providers Care Packing And Shipping Clerk Name Role Phone Julia Oviedo MD Primary Care Provider [phone] Allergies Active Allergy Reactions Criticality Noted Date [...] (two) times a day. Active INV A35-006 [id number] 3-1 gram packet Take 1 packet by mouth. Take ordered dose of [id number] as directed in the absence of the [...] Care Team Description 08/01/2024 Telephone Orthopedic Surgery [facility] [address] [phone] Vijay Powell DPM Medicaiton questions 07/17/2024 Telephone Orthopedic Surgery [facility] [address] [phone] Vijay Powell DPM from Last [...] (gastroesophageal reflux disease) Constipation Anemia Clotting disorder ([facility] V24) DTR STATES SHE HAS A LONG TIME TO STOP BLEEDING, NODX Chronic pain disorder [place], LOWERBACK, HEADACHE Chronic pain disorder Neuromuscular disorder ([facility] V24, [facility] V28) Arthritis Joint pain Social History Tobacco Use [...] Care Team (Late st Contact Info) Description 10/23/2024 8:00 AM EDT Consult Orthopedic Surgery - [address] [phone] Vijay Powell DPM [address] [address] 10/26/2024 12:15 PM EDT Hospital Encounter [facility] OR [address] [place] [phone] Vijay Powell DPM [address] [address] 10/26/2024 12:15 PM EDT - 10/26/2024 1:45 PM EDT Surgery [facility] Main OR [address] [place] [phone] Vijay Powell DPM [address] [address] EXCISION LESION SOFT TISSUE RIGHT FOOT [[id number] (CPT??)] 11/08/2024 1:30 PM EDT Office Visit Orthopedic Surgery - [place] [address] [phone] Vijay Powell DPM [address] [address] Scheduled Procedures Name Priority Associated Diagnoses Date/Ti me EXCISION LESION SOFT TISSUE FOOT Other bursal cyst, right ankle and foot 10/26/2024 12:15 PM EDT Health Maintenance Due Date Last Done [...] - 2023-2 5 season) 2024 Influenza Vaccine (Season Ended) 2025 05/04/2016 DTaP,Tdap,and Td Vaccines (2 - Td [...] age to complete this topic Meningococcal B Vaccine Aged Out No l onger eligible based on patient's age to complete [...] (10/07/2016) Hepatitis C Screening abstracted Historical Provider HEALTH MAINTENANCE Final Result from Last 3 Months or Most Recently Relevant to Health Maintenance Insurance [employer] [place] [address] Care Teams Packing And Shipping Clerk Relationship Specialty Start Date End Date Julia Oviedo MD [address] [place] [address] , [address] [facility] D/B/A: [facility] [place], [place] PCP - General 08/02/23
--- OUTSIDE RECORDS SUMMARY | 2024-10-01 14:21 | XMS_ITS | Data Portability ---
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 All questions were answered. [email or web address] Not available 11/11/2023 13:48:47 11/29/2023 11/29/2023 Left-sided [...] cleaning and maintenance to prevent future otorrhea. [email or web address] Not available 11/29/2023 16:27:20 05/29/2024 05/29/2024 Left-sided [...] 1 %-0.05 % topical cream 2023 024 [id number], [address] [place], [address], 05/29/2024 13:38:28 ciproflox acin 750 mg tablet 2023 024 [email or web address] [facility] #[id number], [address] [place], [address], 11/29/2023 16:05:50 clotrimaz ole-betam ethasone 1 %-0.05 % topical cream 2023 024 [id number], [address] [place], [address], 11/03/2023 12:17:27 Patient TargetsNo targets recorded. Patient [...] and Address Organization Details Recorded Time Headache 94784684 Active 2018 Facial pain NOS; Note: Date Diagnose d: 9 2:54 PM (R51) Not Available [facility] 4 02:53:44 Eczema NOS Active 2016 Eczema NOS; Note: Date Diagnose d: 05/12/20 17 4:20 PM (L30.9) Not Available [facility] 4 02:53:42 Dysphagi a 55886679 Active 2016 Dysphagi a, unspecif ied; Note: Date Diagnose d: 05/12/20 17 4:27 PM (R13.10) Not Available [facility] 4 02:53:43 Dizzines s and giddines s 344951018 Active 2016 Dizzines s and giddines s; Note: Date Diagnose d: 7 12:36 PM (R42) Not Available [facility] 4 02:53:47 Bilatera l earache 175558746 Active 2016 Otalgia, bilatera l; Note: Date Diagnose d: 04/12/20 17 3:29 PM (H92.03) Not Available [facility] 4 02:53:46 Otitis externa of bilatera l ears 73397747467 36420 Completed 201601/13/2024 Other otitis externa, bilatera l; Note: Date Diagnose d: 7 12:35 PM (H60.8X3 ) Not Available [facility] 4 02:53:47 Impacted cerumen of bilatera l ears 10698707678 29599 Active 2022 Impacted cerumen, bilatera l; Note: Date Diagnose d: 3 3:33 PM (H61.23) Not Available [facility] 4 02:53:48 Bilatera l tympanic membrane central perforat ion 84680848514 06314 Active 2020 Central perforat ion of tympanic membrane , bilatera l; Note: Date Diagnose d: 1 3:12 PM (H72.02) Not Available [facility] 4 02:53:44 Mixed 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, bilatera l 071917664 Active 2016 Mixed 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, bilatera l; Note: Date Diagnose d: 7 11:53 AM (H90.6) Not Available [facility] 4 02:53:43 Bilatera l disorder of Eustachi an tubes 33380729522 91400 Active 2016 Other specifie d disorder s of Eustachi an tube, bilatera l; Note: Date Diagnose d: 7 12:35 PM (H69.83) Not Available [facility] 4 02:53:45 Otalgia of left ear 4629994345 Active 2020 Otalgia, left ear; Note: Date Diagnose d: 03/27/20 21 10:35 AM (H92.02) Not Available [facility] 4 02:53:44 Diffuse otitis externa 69194541 Active 2020 Diffuse otitis externa, left ear; Note: Date Diagnose d: 09/18/2020 3:45 PM (H60.312 ) Not Available [facility] 4 02:53:46 Nasal congesti on 01072071 Active 2016 Nasal congesti on; Note: Date Diagnose d: 04/12/20 17 3:28 PM (R09.81) Not Available [facility] 4 02:53:46 Chronic pharyngi tis 022642 Active 2016 Chronic sore throat; Note: Date Diagnose d: 05/12/20 17 4:24 PM (J31.2) Not Available [facility] 4 02:53:43 Pain of left temporom andibula r joint 08408818758 771194 Active 2020 Arthralg ia of left temporom andibula r joint; Note: Date Diagnose d: 03/27/20 21 10:35 AM (M26.622 ) Not Available [facility] 4 02:53:45 Allergic rhinitis 04495679 Active 2018 Other allergic rhinitis ; Note: Date Diagnose d: 9 2:55 PM (J30.89) Not Available [facility] 4 02:53:47 Otalgia 37457246 Active 2020 Otalgia; Note: Date Diagnose d: 03/27/20 21 10:33 AM (388.70) Not Available [facility] 4 02:53:44 Acute infectiv e otitis externa 346797727 Active 2023 LUCA VARGAS PA-C [address] [place] [address], [place], [address] , [facility] 4 12:08:57 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 LUCA VARGAS PA-C [address] [facility],[place] [address], [place], [address] , [place] - [facility] 4 12:09:27 Chronic mycotic otitis externa 303387888 Active 2023 LUCA VARGAS PA-C [address] [facility],[place] [address], [place], [address] , [facility] - [facility] 4 12:09:27 Candidal otitis externa 95790051 Active 2023 LUCA VARGAS PA-C [address] [place] [address],[place] [address], [place], [address] , [place] - [facility] 4 12:09:27 Bilatera l perforat ion of tympanic membrane s 51942420432 90728 Active 2023 LUCA VARGAS PA-C [address] [facility],[place] [address], [place], [address] , [place] - [facility] 4 12:10:39 Cellulit is of face 904721281 Active 2023 KUSUM BARTLETT PA-C [address] [facility],[place] [address], [place], [address] , [place] - [facility] 4 13:49:33 Otorrhea of left ear 28836746337 73320 Active 2023 Otorrhea , left ear; Note: Date Diagnose d: 09/14/2023 3:39 PM (H92.12) Not Available [facility] 4 02:53:47 Problem Notes None recorded. Procedures Surgical History Date Name Laterality Status Provider Name and Address Organization Details Recorded Time 05/29/20 24 Cerumen removal with microscope bilateral completed RAYNA GAY MD [address] [facility],[place] [address], [place], [address], [place] - [facility] 05/29/2024 13:41:27 05/31/20 24 Cerumen removal without microscope right completed KUSUM BARTLETT PA-C [address] [place] [address],[address], [address], [facility] - [facility] 11/11/2023 13:46:54 Carpal tunnel surgery completed Sunil Bermeo [place] - [facility] 11/03/2023 11:50:12 cholecystectomy completed Sunil Bermeo [place] [facility] 11/03/2023 11:50:21 Imaging Results Imaging Date Name Status LastModified by Organiz [facility] Details LastModified Time 07/29/2022 imaging/diag nostic result [...] Name and Address Organization Details Recorded Time 64117 celecoxib medicatio n other Not available Not available 10/25/2023 26708 7 RxNorm React ion: unkno wn, unspe cifie d;; Not Available [facility] 4 00:49:36 41787 pregabali n medicatio n other Not available Not available 10/25/2023 12701 2 RxNorm React ion: unkno wn, unspe cifie d;; Not Available [facility] 4 00:49:49 Medications Name Sig Start Date Stop Date Status Note LastModified by Organization Details LastModified Time amoxicill in 500 mg capsule TOME 1 C PSULA ORALLY EVERY 12 HOURS FOR 7 DAYS 11/28 completed Not Available Not Available Not Available neomycin- polymyxin -hydrocor t 3.5 mg/mL-10, 000 unit/mL-1 % ear solution 01/10 completed Medicati on ID: [id number] D uration Value: 10 Reason: () Brand [...] mg capsule 01/10 completed Medicati on ID: [id number] D uration Value: 30 Reason: () Brand Name: jaymie n Send Method: E-Prescr ibed Sub s Allowed: subs OK Medic ationGen ericName : acitreti n Not Available Not Available Not Available fluconazo le 150 mg tablet PLEASE SEE ATTACHED FOR DETAILED DIRECTIO NS active Not Available Not Available No t Available Senna Lax 8.6 mg tablet 2016 active Medicati on ID: 956619 D uration Value: 30 Brand Name: Senna [...] affected area 2016 active Medicati on ID: 814728 D uration Value: 14 Prescri bed By [...] mg tablet 01/10 completed Medicati on ID: [id number] D uration Value: 30 Reason: () Brand Name: Fiber Laxative (ca polycarb o) Send Method: E-Prescr ibed Sub s Allowed: subs OK Speci al Instruct ion: TAKE 1-2 CAPSULES TWICE A DAY ORALLY 30 DAYS Med icationG enericNa me: Fiber Laxative (ca polycarb o) Not Available Not Available Not Available sumatript an 25 mg tablet 2018 active Medicati on ID: 744131 D uration Value: 30 Brand Name: sumatrip [...] mg tablet 01/10 completed Medicati on ID: 618930 D uration Value: 9 Reason: () Brand [...] twice a day active Medicati on ID: 886336 D uration Value: 10 Prescri bed By Name: SESAR Deluca nd Name: ofloxaci n Send Method: E-Prescr ibed Sub s Allowed: subs OK Medic ationGen ericName : ofloxaci n Not Available Not Available Not Available Gas Relief (simethic one) 125 mg capsule 01/10 completed Medicati on ID: 104417 D uration Value: 30 Reason: () Brand Name: Gas Relief S end Method: E-Prescr ibed Sub s Allowed: subs OK Speci al Instruct ion: TOME FATMATA CAPSULA POR VIA ORAL DOS VECES AL CAT CUANDO SEA NECESARI O Medica tionGene ricName: Gas Relief Not Available Not Available Not Available Vitamin C 1,000 mg tablet 2016 active Medicati on ID: 995917 D uration Value: 30 Brand Name: Vitamin [...] mg tablet 2020 active Medicati on ID: 026110 B rand Name: baclofen Send Method: E-Prescr ibed Sub s Allowed: subs OK Speci al Instruct ion: TOME FATMATA TABLETA POR V A ORAL CADA OCHO HORAS PARA EL ESPASMO MUSCULAR CUANDO SEA NECESARI O Medica tionGene ricName: baclofen Not Available Not Available Not Available benzonata te 100 mg capsule 01/10 completed Medicati on ID: 185665 D uration Value: 10 Reason: () Brand Name: benzonat ate Send Method: E-Prescr ibed Sub s Allowed: subs OK Medic ationGen ericName : benzonat ate Not Available Not Available Not Available gemfibroz il 600 mg tablet 2018 active Medicati on ID: [id number] D uration Value: 30 Brand Name: gemfibro [...] iron) tablet 2020 active Medicati on ID: 811939 B rand Name: ferrous sulfate Send Method: [...] eye drops 01/10 completed Medicati on ID: 536143 D uration Value: 10 Reason: () Brand [...] solution Apply 11/02 completed Medicati on ID: 565705 D uration Value: 14 Prescri bed By Name: SESAR Roman nd Name: clotrima zolleena [place] Method: E-Prescr ibed Sub s Allowed: subs OK Speci al Instruct ion: 4 drops to both ears BID x 2 weeks Me dication GenericN luciano: clotrima zole Med ication ID: [id number] D uration Value: 14 Prescri bed By [...] mg capsule 2016 active Medicati on ID: 131525 D uration Value: 30 Brand Name: gabapent in Send Method: E-Prescr ibed Sub s Allowed: subs OK Speci al Instruct ion: TOME FATMATA CAPSULA TODOS LOS BAKER Med icationG enericNa me: gabapent in Not Available Not Available Not Available omeprazol e 20 mg capsule,d elayed release 2016 active Medicati on ID: 739979 D uration Value: 30 Brand Name: omeprazo [...] tended release 2016 active Medicati on ID: 994888 D uration Value: 5 Brand Name: Mapap [...] unit) capsule 2016 active Medicati on ID: 516382 D uration Value: 30 Brand Name: Vitamin [...] as directed 2021 active Medicati on ID: [id number] D uration Value: 14 Brand Name: Ciprodex Send Method: E-Prescr ibed Sub s Allowed: subs OK Speci al Instruct ion: x 14 days Med icationG enericNa me: Ciprodex Not Available Not Available Not Available rosuvasta tin 20 mg tablet 01/10 completed Medicati on ID: 867824 D uration Value: 30 Reason: () Brand Name: rosuvast atin Sen d Method: E-Prescr ibed Sub s Allowed: subs OK Speci al Instruct ion: TOME FATMATA TABLETA TODOS LOS BAKER Med icationG enericNa me: rosuvast atin Not Available Not Available Not Available cranberry extract 500 mg capsule 2016 active Medicati on ID: 758482 D uration Value: 30 Brand Name: cranberr y extract Send Method: E-Prescr ibed Sub s Allowed: subs OK Speci al Instruct ion: TOME FATMATA CAPSULA POR VIA ORAL TODOS LOS BAKER SCOTT LO INDICADO Medicat ionGener icName: cranberr y extract Not Available Not Available Not Available Fiber Therapy (methylce llulose) 500 mg tablet 01/10 completed Medicati on ID: 270164 D uration Value: 30 Reason: () Brand [...] elayed release 01/10 completed Medicati on ID: 768536 D uration Value: 30 Reason: () Brand Name: duloxeti ne Send Method: E-Prescr ibed Sub s Allowed: subs OK Speci al Instruct ion: TOME FATMATA CAPSULA POR VIA ORAL TODOS LOS BAKER Med icationG enericNa me: duloxeti ne Not Available Not Available Not Available ProAir HFA 90 mcg/actua tion aerosol inhaler 2 puff 2018 active Medicati on ID: [id number] D uration Value: 30 Brand Name: ProAir [...] aerosol spray 2018 active Medicati on ID: 869568 D uration Value: 30 Brand Name: QNASL [...] both nostrils 2018 active Medicati on ID: 965657 D uration Value: 120 Prescri bed By Name: Minda barger MD Brand Name: Flonase Allergy Relief S end Method: E-Prescr ibed Sub s Allowed: subs OK Medic ationGen ericName : Flonase Allergy Relief Not Available Not Available Not Available Trulance 3 mg tablet 2018 active Medicati on ID: 184625 D uration Value: 30 Brand Name: Trulance [...] Updated DateTime 11/11/2023 154.94 cm 28.2 kg/m2 46671.26 g Sunil Bermeo [facility] 11/11/2023 13:07:26 Date Recorded Body height Body mass index (BMI) Body weight Provider Name and Address Organization Details Last Updated DateTime 05/29/2024 154.94 cm 28.3 kg/m2 83375.86 g oNrm Burgess [facility] 05/29/2024 13:30:36 Social History None recorded. Functional [...] Note [id number] MINDA MAIER MD [facility] [address] [address] 11/03/2023 11:38:00 11/03/2023 12:34:18 Chronic mycotic otitis externa 740074666 H60.399 Previously found to be fungal via culture Bilateral perforation of tympanic membranes 3420297761 699015 H72.93 [id number] DAGO GODOY MD [facility] [address] [address] 11/11/2023 12:58:21 11/11/2023 13:33:03 Bilateral disorder of Eustachian tubes 8400270420 350858 H69.83 Bilateral perforation of tympanic membranes 3975044986 238766 H72.93 Cellulitis of face 2001 L03.211 [id number] RAYNA GAY MD [facility] [address] [place] [address] 11/29/2023 15:24:29 11/29/2023 16:27:24 Bilateral disorder of Eustachian tubes 9789837966 917666 H69.83 Bilateral tympanic membrane central perforation 7499943195 357835 H72.03 Mixed cond uctive and sensorineural hearing loss, bilateral 000859365 H90.6 [id number] RAYNA GAY MD [facility] [address] [address] 05/29/2024 13:13:55 05/29/2024 13:43:03 Bilateral disorder of Eustachian tubes 2227649631 242291 H69.83 Bilateral tympanic membrane central perforation 8194685200 987856 H72.03 Mixed cond uctive and sensorineural hearing loss, bilateral 918550286 H90.6 Dermal mycosis 70861374 B36.9 The skin of the {{right le [...] . Impacted c erumen of bilateral ears 3286354994 367007 H61.23 Health Concerns Section Related Observation LastModified by Organization Detai ls LastModified Time None Recorded Concern Status LastModified by Organization Details LastModified Time None Recorded Advance Directives Directive None Recorded Payers Encounter Date Sequence Insurance Name Policy Number Policy Munguia Covered Member ID Munguia Member ID Guarantor Name 11/03/2023 1 [facility] (MEDICAID HMO) MIGUEL Medley Ady [id number] Raquel Medley Ady 11/11/2023 1 [facility] (MEDICAID HMO) MIGUEL Medley Ady [id number] Raquel Medley Ady 11/29/2023 1 [facility] (MEDICAID HMO) MIGUEL Medley Ady [id number] Raquel Medley Ady 05/29/2024 1 [facility] (MEDICAID HMO) MIGUEL Medley Ady [id number] Raquel Garsia Notes Date Note Type Note Provider Name and Address Organization Details Recorded Time 11/03/2023 text/html 62 year old marie avelar presents with family member, who provides interpretation services and family declined professional hourly sign language interpreter, for evaluation of the left ear. Patient reports she has not taken any drops since early September. The ear is very itchy and there is non-pulsatile tinnitus. No otalgia. There is a little dampness but no elmer otorrhea. Wearing her hearing aids every day. When she removes them she cleans with water and soap and a brush. LUCA VARGAS PA-C [address], [address], [facility] - [facility] 11/03/2023 15:33:16 11/11/2023 text/html 62-year-old marie [...] behind the ear. DAGO GODOY MD 100 [facility],[address], [address], [facility] 11/11/2023 17:21:42 11/29/2023 text/html 63-year-old marie avelar with chronic history of ear disease who has been a patient in the office since 2017. She comes in today accompanied by her daughter who is helping to translate Kazakh. Patient recently had prolonged episode of left-sided otorrhea which was treated with a combination of antifungal and antibacterial's. Patient notes no further left-sided ear discharge. Patient did have some bleeding during treatment of the left ear which has since resolved. Patient currently using binaural amplification dispensed at [facility]. She has bilateral mixed hearing loss. RYANA GAY MD [address] [place] [address],[address], [address], [facility] 11/29/2023 17:21:59 05/29/2024 text/html 63-year-old marie [...] her daughter who is helping to translate Kazakh. Patient currently using binaural amplification dispensed at [facility]. She has bilateral mixed hearing loss. Patient comes in today for preventative ear cleaning. Patient comes in today accompanied by her daughter. She is helping to translate Kazakh. Patient reports itchiness in her ears. RAYNA GAY MD [address] [place] [address],[address], [address], [facility] 05/29/2024 13:42:11 OBGyn Episode No OBEpisode recorded.
--- NOTE | 2024-10-01 14:31 | MHC.PC.OV ---
Vital Signs 10/01/24 14:32 Height 5 ft 1 in Weight 152 lb BMI 28.7 BP 104/70 Blood Pressure Location Lt brachial Position Sitting Intake Visit Reasons: Annual Exam Intake Note: Patient here for an annual physical exam [employer] Required: No Accompanied by: Daughter Allergies griseofulvin [From Candie-PEG (ultramicrosize)] Allergy (Intermediate, Verified 10/01/24 14:44) Rash octopus Allergy (Intermediate, Verified 10/01/24 14:44) Hives pregabalin [From Lyrica] Allergy (Intermediate, Verified 10/01/24 14:44) LEethargy, dizziness celecoxib [From Celebrex] Adverse Reaction (Intermediate, Verified 10/01/24 14:44) Problems with Liver dicyclomine Adverse Reaction (Mild, Verified 10/01/24 14:44) stomach upset oxycodone [From Percocet] Adverse Reaction (Mild, Verified 10/01/24 14:44) Lethargy morphine Adverse Reaction (Verified 10/01/24 14:44) Unknown MANDARIN ORANGES Allergy (Severe, Uncoded 10/01/24 14:44) Lip Swelling, Hives PARMELEX Allergy (Intermediate, Uncoded 10/01/24 14:44) Problems with Liver Medication List - Last Reconciled 10/01/24 by Julia Oviedo MD acetaminophen 1,000 mg PO BID PRN ascorbic acid (vitamin C) 1 g PO BID aspirin 81 mg PO DAILY betamethasone dipropionate 0.05% 0.05 appl topical DAILY calcium carbonate 500 mg PO BID 30 days cholecalciferol (vitamin D3) 1,250 mcg PO QWEEK 90 days coenzyme Q10 (H2Q CoQ10) 200 mg PO DAILY [cpap As directed] diclofenac sodium 1% topical loratadine 10 mg PO DAILY 90 days magnesium gluconate 1,000 mg PO BID omega 3-pft-oxn-fish oil 1,000 (120-180) mg (Fish Oil) 1 cap PO DAILY tacrolimus 0.1% 0.1 appl topical DAILY triamcinolone acetonide 0.025% 1 appl topical BID 2 weeks Tobacco use date assessed: 08/21/24 Fall risk assessment: No Falls in past year Last assessed Fall Risk: 10/01/24 Dental Screening Dental Screen Date: 08/21/24 HPI HPI Comments History of Present Illness Details The patient is a 63-year-old female presenting with a wellness visit. She has a history of stable anemia and mild depression, with a noted PHQ-9 score of D6. Her sleep apnea is under the care of a hormone specialist, while gastroenterology manages her chronic constipation. The patient has arthritis, previously managed by rheumatology, though medication options are limited due to allergies. Surgical history includes cholecystectomy, breast biopsy, section, temporal artery biopsy, and bilateral carpal tunnel surgery. She leads a lifestyle free from smoking and alcohol consumption. - Mammogram completed within the last year. - Pap smear in 2022. - Vaccinations are up to date, including a tetanus booster within the last ten years. - Recent laboratory results show good cholesterol levels and stable hemoglobin. - Colonoscopy in 2018. - Scheduled podiatry procedure for October 26 for a toe-related condition. [facility] Medical History Hematuria Furuncle of buttock Abdominal pain Postmenopausal Muscle cramps Physical exam Fibromyalgia Gastroparesis Midline thoracic back pain Epigastric pain Allergic rhinitis Ingrown toenail of right foot Small bowel obstruction Dyspnea on exertion Elevated AST (SGOT) Nausea RUQ pain H. pylori infection Obesity (BMI 30-39.9) Neuropathy Hearing loss Tendonitis Hyperlipidemia Carpal tunnel syndrome Arthritis Fibromyalgia GRAYSON (obstructive sleep apnea) Iron deficiency anemia Normocytic anemia Surgical History History of esophagogastroduodenoscopy (EGD) Hx of colonoscopy History of endoscopy History of laparoscopic cholecystectomy History of varicose vein stripping Family history of lipoma History of left breast biopsy History of History of temporal artery biopsy History of carpal tunnel repair Family History Father Heart disease Diabetes Hypertension Mother Diabetes Hypertension Arthritis Fibromyalgia Osteoporosis Sister Breast cancer Social History Household Members: Family Caregiver staying overnight: No Housing: Apartment Alcohol intake: never Patient Tobacco Use Status: Never used Tobacco e-Cigarette/Vaping Use: Never Used Second Hand Smoke Exposure: No service: No 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al status: disabled 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 1. Little interest or pleasure in doing things: not at all 2. Feeling down, depressed, or hopeless: not at all 3. Trouble falling or staying asleep, or sleeping too much: nearly every day 4. Feeling tired or having little energy: nearly every day 5. Poor appetite or overeating: not at all 6. Feeling bad about yourself - or that you are a failure or have let yourself or your family down: not at all 7. Trouble concentrating on things, such as reading the newspaper or watching television: not at all 8. Moving or speaking so slowly that other people could have noticed. Or the opposite - being so fidgety or restless that you have been moving around a lot more than usual: not at all 9. Thoughts that you would be better off or of hurting yourself in some way: not at all Total score: 6 Depression Screening Interpretation: Positive Depression Screening Follow-up: Existing condition and Follow-up Visit Requested Depression Screening Done: Yes 46025 - PHQ-9 Billing: Yes Source: Developed by Drs. Reynaldo Denson, Marcia Bennett, Lewis Sifuentes and colleagues, with an educational poonam from [employer]. Thrive Questionnaire Date Thrive assessed: 10/01/24 I am a: Patient What is your living situation today?: I have a steady place to live Within the past 12 months, did the food you bought not last and you didn't have the money to get more?: Never true Within the past 12 months, did you worry whether your food would run out before you got money to buy more?: Never true Do you have trouble paying for medicines?: No Do you have trouble getting transportation to medical appointments?: No Do you have trouble paying your heating and electricity bill?: No Do you have trouble taking care of your child, family member or friend?: No Do you have trouble with day-to-day activities such as bathing, preparing meals, shopping, managing finances, etc.?: No Are you currently unemployed and looking for a job?: No Are you interested in more education?: No Please select the resources that you would like help with: None Currently or been in a relationship where the following occur: No concerns reported THRIVE Score: 0 AUDIT C Alcohol Use Questionnaire (AUDIT-C) 1. How often do you have a drink containing alcohol?: Never Total Score: 0 Score Reviewed/Action Taken: No SUMMER-7 AMB Questionnaire SUMMER-7 Date SUMMER - 7 assessed: 10/01/24 Feeling nervous, anxious, or on edge: 0 = Not at all Not being able to stop or control worryin = Several days Worrying too much about different things: 0 = Not at all Trouble relaxin = Several days Being so restless that it is hard to sit still: 1 = Several days Becoming easily annoyed or irritable: 0 = Not at all Feeling afraid as if something awful might happen: 0 = Not at all Total SUMMER-7 score (0-4 normal; 5-9 mild; 10-14 moderate; 15-21 severe): 3 Source: Developed by Drs. Reynaldo Denson, Marcia Bennett, Lewis Sifuentes and colleagues, with an educational poonam from [employer]. SUMMER-7 Assessment Billing SUMMER-7 Assessment Tool: SUMMER-7 Assessment 01319 Review of Systems Const All systems reviewed & are unremarkable except as noted in HPI and below Card Denies chest pain at rest, Denies chest pain with activity, Denies edema, Denies irregular heart rhythm, Denies claudication, Denies dyspnea, Denies dyspnea on exertion, Denies orthopnea, Denies paroxysmal nocturnal dyspnea and Denies slow heart rate Resp Denies cough, Denies dyspnea and Denies dyspnea on exertion GI Denies abdominal pain, Denies change in bowel habits, Denies excessive flatus, Denies nausea and Denies vomiting Denies urinary incontinence, Denies urinary hesitancy and Denies urinary urgency Physical exam (Primary Care) Vital Signs: Last Vital Signs BP 104/70 10/01/24 14:32 BMI result Body Mass Index 28.7 Tobacco/Smoking Status: Tobacco use Status Tobacco use date assessed 08/21/24 10/01/24 14:37 Patient Tobacco Use Status Never used Tobacco 10/01/24 14:37 e-Cigarette/Vaping Use Never Used 10/01/24 14:37 PHQ-9: PHQ-9 Score PHQ-9: Total score 6 10/01/24 14:37 Depression Screening Interpretation: Positive Depression Screening Follow-up: Existing condition and Follow-up Visit Requested Thrive Assessment: Date of Thrive Assessment Date Thrive assessed 10/01/24 10/01/24 14:37 Currently or been in a relationship where the following occur: No concerns reported Const Orientation/consciousness: patient oriented x3 HENMT Head: Yes normal to inspection, Yes normocephalic and Yes atraumatic Ears: external ears normal Eyes General: appearance normal, both eyes and all related structures Eyelids: Yes eyelids normal Conjunctivae: conjunctivae normal Neck Neck: Yes normal visual inspection and Yes supple Resp Effort & Inspection: normal respiratory effort Auscultation: clear to auscultation bilaterally Cardio Jugular venous distension: no JVD Rate: regular rate Rhythm: regular rhythm Heart sounds: S1 normal heart sound present and S2 normal heart sound present GI Inspection: Yes normal to inspection Palpation (GI): Soft to palpation and nontender Auscultation: normal bowel sounds Skin General skin exam: no rashes or lesions noted Neuro General: patient oriented x3 and no focal motor deficits Extrem General: Yes full ROM Psych Appearance: grossly normal Coding Level of Care Code Est Pt Prev Care 40-64y(69216) Diagnoses Physical exam Z00.00 Additional Codes PHQ-9 - 88187 - PHQ-9 Billing: Yes ([id number]) SUMMER-7 Assessment Billing - SUMMER-7 Assessment Tool: SUMMER-7 Assessment 41447 ([id number]) Time Spent (min) 30 Assessment & Plan Assessment & Plan (1) Physical exam: Code(s): Z00.00 - Encounter for general adult medical examination without abnormal findings Category: Medical Plan During the visit, I discussed the patient's anemia and depression, advising regular follow-up and emphasizing the stability of these conditions. Her medications, including Tylenol and various vitamins and supplements, support her overall health. Given her allergies, Celebrex is not an option for arthritis management. Preventative screenings, such as mammograms, Pap smears, and vaccinations, are current. Gastroenterology manages her constipation, and her sleep apnea is overseen by a specialist. A podiatry appointment for a minor toe procedure is set for October 26. Her lifestyle without tobacco or alcohol is commendable, and coordination with healthcare specialists will ensure continued management of her health conditions. Patient was informed and verbally consented to the use of an ambient scribe for clinic note documentation during this visit. I discussed with the patient the status of her anemia and depression and recommended maintaining regular check-ups. We reviewed her medication regimen, ensuring compatibility with her health conditions. I highlighted her current preventative measures as up to date, with no need for additional vaccinations or screenings at present. The patient understands her arthritis management limitations due to allergies and will rely on existing specialist care for her sleep apnea and constipation. Informed consent for upcoming podiatry and routine follow-up with her healthcare specialists was obtained, reinforcing our collaborative approach to her ongoing wellness. Patient Instructions: - Continue current medications as prescribed. - Follow up with podiatry for scheduled appointment on October 26. - Maintain regular screenings such as mammograms and Pap smears. - Continue to avoid tobacco and alcohol. - Monitor depression and seek support if symptoms worsen.
[2024-10-01 14:32] VITALS: BP 104/70; BMI 28.7
== END 2024-10-01 14:58 | disposition home or self-care (01) ==
LOC: HO.HMCH 14:18
PROVIDERS: PCP Internal Medicine; Visit Provider Internal Medicine
DX: Z00.00 Encounter for general adult medical examination without abnormal findings (principal)

== ENCOUNTER → 2024-10-01 14:17 | Outpatient (BNVA) | payer OTHER, SELFPAY | PROVIDERS: PCP Internal Medicine; Visit Provider Internal Medicine | DX: Z00.00 Encounter for general adult medical examination without abnormal findings (principal); D64.9 Anemia, unspecified; F32.A Depression, unspecified | CPT/HCPCS: 96127; 99396 ==

== ENCOUNTER 2024-10-11 10:55 | Outpatient (REF) | payer OTHER, SELFPAY ==
--- OUTSIDE RECORDS SUMMARY | 2024-10-11 12:36 | XMS_ITS | Encounter Summary ---
Author Organization [facility] Address [address] [place] [address] Care Team Providers Care Care Professionals Name Role Phone Julia Oviedo MD Primary Care Provider [phone] Encounter Details Date Type Department Care Team (Late Contact Info) Description 10/11/2024 Telephone Orthopedic Surgery - [place] [address] [phone] Vijay Powell DPM [address] [address] Social History Tobacco Use Types Packs/Day Years Used Date Smoking Tobacco: Never Assessed Comments Unknown Sex and Gender Information Value Date Recorded Sex Assigned at Not on file Legal Sex Female 10:48 PM EST Gender Identity Not on file Sexual Orientation Not on file documented as of this encounter Progress Notes * Omayra Marques - 10/11/2024 8:55 AM EDT Get [facility] PreOp provider calling with questions about procedure Anesthesia plan Procedure time allotted Procedure? Diagnosis Can LVM [phone] documented in this encounter Plan of Treatment Upcoming Encounters Date Type Department Care Team (Late Contact Info) Description 10/23/2024 8:00 AM EDT Consult Orthopedic Surgery - [place] [address] [phone] Vijay Powell DPM [address] [address] 10/26/2024 12:15 PM EDT Hospital Encounter [facility] [address] [place] [address] [place] [phone] Vijay Powell DPM [address] [address] 10/26/2024 12:15 PM EDT - 10/26/2024 1:45 PM EDT Surgery [facility] [address] [place] [address] [place] [phone] Vijay Powell DPM [address] [address] EXCISION LESION SOFT TISSUE RIGHT FOOT [92435 (CPT??)] 11/08/2024 1:30 PM EDT Office Visit Orthopedic Surgery - [place] [address] [phone] Vijay Powell DPM [address] [address] Scheduled Procedures Name Priority Associated Diagnoses Date/Ti me EXCISION LESION SOFT TISSUE FOOT Other bursal cyst, right ankle and foot 10/26/2024 12:15 PM EDT documented as of this encounter Visit Diagnoses Not on filedocumented in this encounter Care Teams Care Professionals Relationship Specialty Start Date End Date Julia Oviedo MD [address] [place] [address] , [address] [facility] D/B/A: [facility] [place] PCP - General 08/02/23 documented as of this encounter
--- OUTSIDE RECORDS SUMMARY | 2024-10-11 12:36 | XMS_ITS | Clinical Summary ---
Author Organization 175 [facility] Address [address] [place] [address] Phone Care Team Providers Care Technical Solutions Director Name Role Phone Julia Oviedo MD Primary Care Provider [phone] Allergies Active Allergy Reactions Criticality Noted Date Comments Celecoxib 10/07/2016 Dicyclomine 10/07/2016 Griseofulvin Microsize 10/07/2016 Morphine 10/03/2023 Nortriptyline 10/07/2016 Other 10/07/2016 Oxycodone 10/07/2016 Pregabalin 10/07/2016 Rosuvastatin Calcium 10/07/2016 Medications cholecalcifero l (VITAMIN D-3) 25 mcg (1,000 unit) capsule [...] mouth 1 (one) time each day. Active docosahexaenoi c acid/epa (FISH OIL ORAL) Take 1,000 mg [...] mouth 1 (one) time each day. Active alclomethasone (ACLOVATE) 0.05 % ointment Apply topically 2 (two) times a day. Active betamethasone, augmented, (DIPROLENE-AF) 0.05 % cream Apply topically 2 (two) times a day. Active INV A35-006 [id number] 3-1 gram packet Take 1 packet by mouth. Take ordered dose of [id number] as directed in the absence of the emergence of diarrhea or sustained nausea. To prepare, add one packet to 250 mL (8 oz) of room temp water, stir well, and drink within 60 minutes. Active omega 6-ltz-wit-fish oil (Fish OiL) 1,000 (120-180) mg capsule Active GLYCINE ORAL Take 1,500 mg by mouth at bedtime. 025 Discontinued Active Problems Problem Noted Date Diagnosed Date [...] Encounters Date Type Department Care Team Description 10/11/2024 Telephone Orthopedic Surgery [facility] [address] [phone] Vijay Powell, DPAshely 08/01/2024 Telephone Orthopedic Surgery [facility] [address] [phone] Vijay Powell DPM Medicaiton questions 07/17/2024 Telephone Orthopedic Surgery - [place] [address] [phone] Vijay Powell DPM from Last [...] (gastroesophageal reflux disease) Constipation Anemia Clotting disorder ([facility] V24) DTR STATES SHE HAS A LONG TIME TO STOP BLEEDING, NODX Chronic pain disorder [place], LOWERBACK, HEADACHE Chronic pain disorder Neuromuscular disorder ([facility] V24, [facility] V28) Arthritis Joint pain Delayed emergence from general anesthesia Social History Tobacco Use Types Packs/Day Years [...] - - Weight 68 kg (150 lb) 10/10/2024 3:00 PM EDT Height 154.9 cm (5' 1 ) 10/10/2024 3:00 PM EDT Body Mass Index 28.34 10/10/2024 3:00 PM EDT Plan of Treatment Upcoming Encounters Date Type Department Care Team (Late st Contact Info) Description 10/23/2024 8:00 AM EDT Consult Orthopedic Surgery - [place] [address] [phone] Vijay Powell DPM [address] [address] 10/26/2024 12:15 PM EDT Hospital Encounter [facility] [address] [place] [address] [place] [phone] Vijay Powell DPM [address] [address] 10/26/2024 12:15 PM EDT - 10/26/2024 1:45 PM EDT Surgery [facility] [address] [place] [phone] Vijay Powell DPM [address] [address] EXCISION LESION SOFT TISSUE RIGHT FOOT [[id number] (CPT??)] 11/08/2024 1:30 PM EDT Office Visit Orthopedic Surgery - [place] [address] [phone] Vijay Powell DPM [address] [address] Scheduled Procedures Name Priority Associated Diagnoses Date/Ti [...] Influencers of Health Screening 01/10/2024 COVID-19 Vaccine (2023-2 5 season) 2024 Influenza Vaccine (Season Ended) [...] C Screening (10/07/2016) Hepatitis C Screening abstracted [facility] Provider MD HEALTH MAINTENANCE Final Result from Last 3 Months or Most Recently Relevant to Health Maintenance Insurance [facility] [employer] Care Teams Technical Solutions Director Relationship Specialty Start Date End Date Julia Oviedo MD [address] [facility] , [address] [facility] D/B/A: [facility] GREGORIO Sahni PCP - General 08/02/23
--- OUTSIDE RECORDS SUMMARY | 2024-10-11 12:36 | XMS_ITS | Data Portability ---
Author Organization [place] - [facility], Allergy Address [address] [address] Care Team Providers Care Brokerage Purchase And Sale Clerk Name Role Phone SUNIL LA Primary Care [...] weeks for reevaluation. All questions were answered. [email or web address] Not available 11/11/2023 13:48:47 11/29/2023 11/29/2023 Left-sided [...] cleaning and maintenance to prevent future otorrhea. [email or web address] Not available 11/29/2023 16:27:20 05/29/2024 05/29/2024 Left-sided [...] cleaning and maintenance to prevent future otorrhea. [email or web address] Not available 05/28/2024 20:02:08 Plan of Treatment [...] 1 %-0.05 % topical cream 2023 024 [facility]/Pharmacy #[id number], [address] [place], [address], 05/29/2024 13:38:28 ciproflox acin 750 mg tablet 2023 024 [email or web address] [facility]/Pharmacy #[id number], [address] [place], [address], 11/29/2023 16:05:50 clotrimaz ole-betam ethasone 1 %-0.05 % topical cream 2023 024 [facility]/Pharmacy #[id number], [address] [place], [address], 11/03/2023 12:17:27 Patient TargetsNo targets recorded. Patient [...] and Address Organization Details Recorded Time Headache 59551916 Active 2018 Facial pain NOS; Note: Date Diagnose d: 9 2:54 PM (R51) Not Available [facility] 4 02:53:44 Eczema NOS Active 2016 Eczema NOS; Note: Date Diagnose d: 05/12/20 17 4:20 PM (L30.9) Not Available [facility] 4 02:53:42 Dysphagi a 42412404 Active 2016 Dysphagi a, unspecif ied; Note: Date Diagnose d: 05/12/20 17 4:27 PM (R13.10) Not Available [facility] 4 02:53:43 Dizzines s and giddines s 727224110 Active 2016 Dizzines s and giddines s; Note: Date Diagnose d: 7 12:36 PM (R42) Not Available [facility] 4 02:53:47 Bilatera l earache 060636412 Active 2016 Otalgia, bilatera l; Note: Date Diagnose d: 04/12/20 17 3:29 PM (H92.03) Not Available [facility] 4 02:53:46 Otitis externa of bilatera l ears 43846299329 65180 Completed 201601/13/2024 Other otitis externa, bilatera l; Note: Date Diagnose d: 7 12:35 PM (H60.8X3 ) Not Available [facility] 4 02:53:47 Impacted cerumen of bilatera l ears 72466139659 07384 Active 2022 Impacted cerumen, bilatera l; Note: Date Diagnose d: 3 3:33 PM (H61.23) Not Available [facility] 4 02:53:48 Bilatera l tympanic membrane central perforat ion 48549620691 80576 Active 2020 Central perforat ion of tympanic membrane , bilatera l; Note: Date Diagnose d: 1 3:12 PM (H72.02) Not Available [facility] 4 02:53:44 Mixed 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, bilatera l 754695028 Active 2016 Mixed 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, bilatera l; Note: Date Diagnose d: 7 11:53 AM (H90.6) Not Available [facility] 4 02:53:43 Bilatera l disorder of Eustachi an tubes 96013176428 84722 Active 2016 Other specifie d disorder s of Eustachi an tube, bilatera l; Note: Date Diagnose d: 7 12:35 PM (H69.83) Not Available [facility] 4 02:53:45 Otalgia of left ear 4387127259 Active 2020 Otalgia, left ear; Note: Date Diagnose d: 03/27/20 21 10:35 AM (H92.02) Not Available [facility] 4 02:53:44 Diffuse otitis externa 40864616 Active 2020 Diffuse otitis externa, left ear; Note: Date Diagnose d: 09/18/2020 3:45 PM (H60.312 ) Not Available [facility] 4 02:53:46 Nasal congesti on 98659517 Active 2016 Nasal congesti on; Note: Date Diagnose d: 04/12/20 17 3:28 PM (R09.81) Not Available [facility] 4 02:53:46 Chronic pharyngi tis 984440 Active 2016 Chronic sore throat; Note: Date Diagnose d: 05/12/20 17 4:24 PM (J31.2) Not Available [facility] 4 02:53:43 Pain of left temporom andibula r joint 89422698342 013517 Active 2020 Arthralg ia of left temporom andibula r joint; Note: Date Diagnose d: 03/27/20 21 10:35 AM (M26.622 ) Not Available [facility] 4 02:53:45 Allergic rhinitis 38728021 Active 2018 Other allergic rhinitis ; Note: Date Diagnose d: 9 2:55 PM (J30.89) Not Available [facility] 4 02:53:47 Otalgia 52559577 Active 2020 Otalgia; Note: Date Diagnose d: 03/27/20 21 10:33 AM (388.70) Not Available [facility] 4 02:53:44 Acute infectiv e otitis externa 224603960 Active 2023 LUCA VARGAS PA-C [address] [place] [address], [place], [address] , [facility] 4 12:08:57 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 LUCA VARGAS PA-C 100 [facility],[place] [address], [place], [address] , [place] - [facility] 4 12:09:27 Chronic mycotic otitis externa 022484463 Active 2023 LUCA VARGAS PA-C 100 [facility],[place] [address], [place], [address] , [facility] 4 12:09:27 Candidal otitis externa 57115624 Active 2023 LUCA VARGAS PA-C [address] [place] [address],[place] [address], [place], [address] , [place] - [facility] 4 12:09:27 Bilatera l perforat ion of tympanic membrane s 11696136493 50430 Active 2023 LUCA VARGAS PA-C 100 [facility],[place] [address], [place], [address] , [place] - [facility] 4 12:10:39 Cellulit is of face 169631954 Active 2023 KUSUM BARLTETT PA-C 100 [facility],[place] [address], [place], [address] , [place] - [facility] 4 13:49:33 Otorrhea of left ear 40633551372 24873 Active 2023 Otorrhea , left ear; Note: Date Diagnose d: 09/14/2023 3:39 PM (H92.12) Not Available [facility] 4 02:53:47 Problem Notes None recorded. Procedures Surgical History Date Name Laterality Status Provider Name and Address Organization Details Recorded Time 05/29/20 24 Cerumen removal with microscope bilateral completed RAYNA GAY MD 100 [facility],[place] [address], [place], [address], [place] - [facility] 05/29/2024 13:41:27 05/31/20 24 Cerumen removal without microscope right completed KUSUM BARTLETT PA-C [address] [place] [address],[address], [address], [facility] 11/11/2023 13:46:54 Carpal tunnel surgery completed Sunil Bermeo [place] - [facility] 11/03/2023 11:50:12 cholecystectomy completed Sunil Bermeo [place] [facility] 11/03/2023 11:50:21 Imaging Results Imaging Date Name Status [facility]Modified by [facility] Details LastModified Time 07/29/2022 imaging/diag nostic result [...] Name and Address Organization Details Recorded Time 23379 celecoxib medicatio n other Not available Not available 10/25/2023 81935 7 RxNorm React ion: unkno wn, unspe cifie d;; Not Available [facility] 4 00:49:36 41327 pregabali n medicatio n other Not available Not available 10/25/2023 18540 2 RxNorm React ion: unkno wn, unspe cifie d;; Not Available [facility] 4 00:49:49 Medications Name Sig Start Date Stop Date Status Note LastModified by Organization Details LastModified Time amoxicill in 500 mg capsule TOME 1 C PSULA ORALLY EVERY 12 HOURS FOR 7 DAYS 11/28 completed Not Available Not Available Not Available neomycin- polymyxin -hydrocor t 3.5 mg/mL-10, 000 unit/mL-1 % ear solution 01/10 completed Medicati on ID: [id number] D uration Value: 10 Reason: () Brand [...] mg capsule 01/10 completed Medicati on ID: [id number] D uration Value: 30 Reason: () Brand Name: jaymie n Send Method: E-Prescr ibed Sub s Allowed: subs OK Medic ationGen ericName : acitreti n Not Available Not Available Not Available fluconazo le 150 mg tablet PLEASE SEE ATTACHED FOR DETAILED DIRECTIO NS active Not Available Not Available No t Available Senna Lax 8.6 mg tablet 2016 active Medicati on ID: [id number] D uration Value: 30 Brand Name: Senna [...] affected area 2016 active Medicati on ID: 923830 D uration Value: 14 Prescri bed By Name: Reynaldo barger MD Brand Name: clotrima zole-bet amethaso ne Send Method: E-Prescr ibed Sub s Allowed: subs OK Speci al Instruct ion: Apply with finger to ear canal skin. Me dication GenericN luciano: clotrima zole-bet amethaso ne Not Available Not Available Not Available Fiber Laxative (calcium polycarbo hansel) 625 mg tablet 01/10 completed Medicati on ID: 585943 D uration Value: 30 Reason: () Brand Name: Fiber Laxative (ca polycarb o) Send Method: E-Prescr ibed Sub s Allowed: subs OK Speci al Instruct ion: TAKE 1-2 CAPSULES TWICE A DAY ORALLY 30 DAYS Med icationG enericNa me: Fiber Laxative (ca polycarb o) Not Available Not Available Not Available sumatript an 25 mg tablet 2018 active Medicati on ID: [id number] D uration Value: 30 Brand Name: sumatrip [...] mg tablet 01/10 completed Medicati on ID: 753751 D uration Value: 9 Reason: () Brand [...] twice a day active Medicati on ID: 255752 D uration Value: 10 Prescri bed By Name: SESRA Deluca nd Name: ofloxaci n Send Method: E-Prescr ibed Sub s Allowed: subs OK Medic ationGen ericName : ofloxaci n Not Available Not Available Not Available Gas Relief (simethic one) 125 mg capsule 01/10 completed Medicati on ID: 843258 D uration Value: 30 Reason: () Brand Name: Gas Relief S end Method: E-Prescr ibed Sub s Allowed: subs OK Speci al Instruct ion: TOME FATMATA CAPSULA POR VIA ORAL DOS VECES AL CAT CUANDO SEA NECESARI O Medica tionGene ricName: Gas Relief Not Available Not Available Not Available Vitamin C 1,000 mg tablet 2016 active Medicati on ID: 607415 D uration Value: 30 Brand Name: Vitamin [...] mg tablet 2020 active Medicati on ID: 143006 B rand Name: baclofen Send Method: E-Prescr ibed Sub s Allowed: subs OK Speci al Instruct ion: TOME FATMATA TABLETA POR V A ORAL CADA OCHO HORAS PARA EL ESPASMO MUSCULAR CUANDO SEA NECESARI O Medica tionGene ricName: baclofen Not Available Not Available Not Available benzonata te 100 mg capsule 01/10 completed Medicati on ID: 392004 D uration Value: 10 Reason: () Brand Name: benzonat ate Send Method: E-Prescr ibed Sub s Allowed: subs OK Medic ationGen ericName : benzonat ate Not Available Not Available Not Available gemfibroz il 600 mg tablet 2018 active Medicati on ID: 707669 D uration Value: 30 Brand Name: gemfibro [...] iron) tablet 2020 active Medicati on ID: 106737 B rand Name: ferrous sulfate Send Method: [...] eye drops 01/10 completed Medicati on ID: 520543 D uration Value: 10 Reason: () Brand [...] solution Apply 11/02 completed Medicati on ID: [id number] D uration Value: 14 Prescri bed By Name: SESAR Roman nd Name: clotrima zolleena appiah Method: E-Prescr ibed Sub s Allowed: subs OK Speci al Instruct ion: 4 drops to both ears BID x 2 weeks Me dication GenericN luciano: clotrima zole Med ication ID: [id number] D uration Value: 14 Prescri bed By [...] mg capsule 2016 active Medicati on ID: 277454 D uration Value: 30 Brand Name: gabapent in Send Method: E-Prescr ibed Sub s Allowed: subs OK Speci al Instruct ion: TOME FATMATA CAPSULA TODOS LOS BAKER Med icationG enericNa me: gabapent in Not Available Not Available Not Available omeprazol e 20 mg capsule,d elayed release 2016 active Medicati on ID: 174747 D uration Value: 30 Brand Name: omeprazo [...] tended release 2016 active Medicati on ID: 739623 D uration Value: 5 Brand Name: Mapap [...] unit) capsule 2016 active Medicati on ID: 816438 D uration Value: 30 Brand Name: Vitamin [...] as directed 2021 active Medicati on ID: 264288 D uration Value: 14 Brand Name: Ciprodex Send Method: E-Prescr ibed Sub s Allowed: subs OK Speci al Instruct ion: x 14 days Med icationG enericNa me: Ciprodex Not Available Not Available Not Available rosuvasta tin 20 mg tablet 01/10 completed Medicati on ID: 769692 D uration Value: 30 Reason: () Brand Name: rosuvast atin Sen d Method: E-Prescr ibed Sub s Allowed: subs OK Speci al Instruct ion: TOME FATMATA TABLETA TODOS LOS BAKER Med icationG enericNa me: rosuvast atin Not Available Not Available Not Available cranberry extract 500 mg capsule 2016 active Medicati on ID: 173560 D uration Value: 30 Brand Name: cranberr y extract Send Method: E-Prescr ibed Sub s Allowed: subs OK Speci al Instruct ion: TOME FATMATA CAPSULA POR VIA ORAL TODOS LOS BAKER SCOTT LO INDICADO Medicat ionGener icName: cranberr y extract Not Available Not Available Not Available Fiber Therapy (methylce llulose) 500 mg tablet 01/10 completed Medicati on ID: 238196 D uration Value: 30 Reason: () Brand [...] elayed release 01/10 completed Medicati on ID: 387525 D uration Value: 30 Reason: () Brand Name: duloxeti ne Send Method: E-Prescr ibed Sub s Allowed: subs OK Speci al Instruct ion: TOME FATMATA CAPSULA POR VIA ORAL TODOS LOS BAKER Med icationG enericNa me: duloxeti ne Not Available Not Available Not Available ProAir HFA 90 mcg/actua tion aerosol inhaler 2 puff 2018 active Medicati on ID: 750274 D uration Value: 30 Brand Name: ProAir [...] aerosol spray 2018 active Medicati on ID: 868242 D uration Value: 30 Brand Name: QNASL [...] both nostrils 2018 active Medicati on ID: 471899 D uration Value: 120 Prescri bed By Name: Reynaldo barger MD Brand Name: Flonase Allergy Relief S end Method: E-Prescr ibed Sub s Allowed: subs OK Medic ationGen ericName : Flonase Allergy Relief Not Available Not Available Not Available Trulance 3 mg tablet 2018 active Medicati on ID: 276843 D uration Value: 30 Brand Name: Trulance [...] Updated DateTime 11/11/2023 154.94 cm 28.2 kg/m2 14694.26 g Sunil Bermeo [facility] 11/11/2023 13:07:26 Date Recorded Body height Body mass index (BMI) Body weight Provider Name and Address Organization Details Last Updated DateTime 05/29/2024 154.94 cm 28.3 kg/m2 32128.86 g Norm Burgess [facility] 05/29/2024 13:30:36 Social History None recorded. Functional Status None recorded. Mental Status None recorded. Family History Nothing Reported. Medical History No medical history recorded. Gynecological HistoryNo gynecological history recorded. Obstetrics History GPAL:G 0 P 0 0 0 0 Past Encounters Encounter ID Performer Location Encounter Start Date Encounter Closed Date Diagnosis/Indication Diagnosis SNOMED-CT Code Diagnosis ICD10 Code Diagnosis Note [id number] LUCA VARGAS PA-C [facility] [address] [address] 11/03/2023 11:38:00 11/03/2023 12:34:18 Chronic mycotic otitis externa 782240385 H60.399 Previously found to be fungal via culture Bilateral perforation of tympanic membranes 8830566445 632375 H72.93 [id number] KUSUM BARTLETT PA-C [facility] [address] [place] [address] 11/11/2023 12:58:21 11/11/2023 13:33:03 Bilateral disorder of Eustachian tubes 6103648395 368017 H69.83 Bilateral perforation of tympanic membranes 4843286123 972782 H72.93 Cellulitis of face 2001 L03.211 [id number] RAYNA GAY MD [facility] [address] [place] [address] 11/29/2023 15:24:29 11/29/2023 16:27:24 Bilateral disorder of Eustachian tubes 7902861934 176815 H69.83 Bilateral tympanic membrane central perforation 7224848720 134808 H72.03 Mixed cond uctive and sensorineural hearing loss, bilateral 504820166 H90.6 [id number] RAYNA GAY MD [facility] [address] [place] [address] 05/29/2024 13:13:55 05/29/2024 13:43:03 Bilateral disorder of Eustachian tubes 2875124714 780992 H69.83 Bilateral tympanic membrane central perforation 0694991127 878329 H72.03 Mixed cond uctive and sensorineural hearing loss, bilateral 901056381 H90.6 Dermal mycosis 82180513 B36.9 The skin of the {{right le [...] . Impacted c erumen of bilateral ears 4939552874 241853 H61.23 Health Concerns Section Related Observation LastModified by Organization Detai ls LastModified Time None Recorded Concern Status LastModified by Organization Details LastModified Time None Recorded Advance Directives Directive None Recorded Payers Encounter Date Sequence Insurance Name Policy Number Policy Munguia Covered Member ID Munguia Member ID Guarantor Name 11/03/2023 1 [facility] PLAN (MEDICAID HMO) MIGUEL Medley Ady [id number] Raquel Medley Ady 11/11/2023 1 [facility] PLAN (MEDICAID HMO) MIGUEL Medley Ady [id number] Raquel Medley Ady 11/29/2023 1 [facility] (MEDICAID HMO) MIGUEL Medley Ady [id number] Raquel Medley Ady 05/29/2024 1 [facility] (MEDICAID HMO) MIGUEL Medley Ady [id number] Raquel Garsia Notes Date Note Type Note Provider Name and Address Organization Details Recorded Time 11/03/2023 text/html 62 year old marie avelar presents with family member, who provides interpretation services and family declined professional application software developer, for evaluation of the left ear. Patient reports she has not taken any drops since early September. The ear is very itchy and there is non-pulsatile tinnitus. No otalgia. There is a little dampness but no elmer otorrhea. Wearing her hearing aids every day. When she removes them she cleans with water and soap and a brush. LUCA VARGAS PA-C [address], [address], [place] - [facility] 11/03/2023 15:33:16 11/11/2023 text/html 62-year-old marie [...] behind the ear. DAGO GODOY MD 100 [facility],[address], [address], [place] - [facility] 11/11/2023 17:21:42 11/29/2023 text/html 63-year-old marie avelar with chronic history of ear disease who has been a patient in the office since 2017. She comes in today accompanied by her daughter who is helping to translate Scottish. Patient recently had prolonged episode of left-sided otorrhea which was treated with a combination of antifungal and antibacterial's. Patient notes no further left-sided ear discharge. Patient did have some bleeding during treatment of the left ear which has since resolved. Patient currently using binaural amplification dispensed at [facility]iology. She has bilateral mixed hearing loss. RAYNA GAY MD [address] [place] [address], [phone], [facility] 11/29/2023 17:21:59 05/29/2024 text/html 63-year-old marie [...] her daughter who is helping to translate Scottish. Patient currently using binaural amplification dispensed at [facility]. She has bilateral mixed hearing loss. Patient comes in today for preventative ear cleaning. Patient comes in today accompanied by her daughter. She is helping to translate Scottish. Patient reports itchiness in her ears. RAYNA GAY MD [address] [place] [address],[address], [address], [facility] 05/29/2024 13:42:11 OBGyn Episode No OBEpisode recorded.
== END 2024-10-11 10:56 | disposition home or self-care (01) ==
LOC: HO.HAP 10:55
PROVIDERS: Visit Provider Internal Medicine
DX: Z46.1 Encounter for fitting and adjustment of hearing aid (principal); H90.3 Sensorineural hearing loss, bilateral
CPT/HCPCS: V5266

== ENCOUNTER 2024-10-12 09:55 | Outpatient (REF) | payer OTHER, SELFPAY ==
--- OUTSIDE RECORDS SUMMARY | 2024-10-12 10:47 | XMS_ITS | Encounter Summary ---
Author Organization [facility] Address [address] [place] [address] Care Team Providers Care Parent Trainer Name Role Phone Gretel So MD Primary Care Provider Mario Lucas Primary Care Provider Kristie Mejia, Pcp Primary Care Provider Julia Eid MD Primary Care Provider Lola mares Reason for Visit * Reason Comments E-prescribe Rx Request Encounter Details Date Type Department Care Team Description 07/25/2017 Refill Dermatology - [address] [address] Lindy Pelaez PA-C E-prescribe Rx Request Social [...] on filedocumented in this encounter Care Teams Parent Trainer Relationship Specialty Start Date End Date Gretel So MD PCP - General Internal Medicine 05/17/17 08/31/17 Mario Torres PCP - General Internal Medicine 09/01/17 09/29/17 On License Of [facility], Pcp PCP - General Internal Medicine 09/30/17 08/01/23 Julia Oviedo MD PCP - General Internal Medicine 08/02/23 documented as of this encounter
--- OUTSIDE RECORDS SUMMARY | 2024-10-12 10:47 | XMS_ITS | Clinical Summary ---
Author Organization [facility] Address [address] [place] [address] Care Team Providers Care Grill Prep Cook Name Role Phone Julia Oviedo MD Primary [...] OR Take by mouth. 0 Active Fiber, [place] Dextrin, Powder Take by mouth. 0 Active Linaclotide 145 MCG Cap Take by mouth. 0 Active senna (SENOKOT) 8.6 MG tablet Take 1 tablet by mouth daily. 0 Active gemfibrozil (LOPID) 600 MG tablet Take 600 mg by mouth 2 times daily (before meals). 0 Active Klktcgz-Oqroygzby-Dp tamin D (CALCIUM 500 OR) Take by [...] HEPATITIS C SCREENING Completed 10/07/2016 Care Teams Grill Prep Cook Relationship Specialty Start Date End Date Julia Oviedo MD PCP - General Internal Medicine 08/02/23
--- OUTSIDE RECORDS SUMMARY | 2024-10-12 10:47 | XMS_ITS | Encounter Summary ---
Author Organization [facility] Address [address] [place] [address] Care Team Providers Care Religion Instructor Name Role Phone Mario Torres Primary Care Provider Kristie Mejia, Pcp Primary Care Provider Julia Eid MD Primary Care Provider Lola mares Reason for Visit * Reason Onset Date Comments REFERRAL 09/15/2017 Encounter Details Date Type Department Care Team Description 09/15/2017 Telephone Allergy - [address] [address] Wilma Elaine MD REFERRAL Social History Tobacco [...] on filedocumented in this encounter Care Teams Religion Instructor Relationship Specialty Start Date End Date Mario Torres PCP - General Internal Medicine 09/01/17 09/29/17 [facility], Pcp PCP - General Internal Medicine 09/30/17 08/01/23 Julia Oviedo MD PCP - General Internal Medicine 08/02/23 documented as of this encounter
--- OUTSIDE RECORDS SUMMARY | 2024-10-12 10:47 | XMS_ITS | Encounter Summary ---
Author Organization [facility] Address [address] [place] [address] Care Team Providers Care Store Stock Associate Name Role Phone Julia Oviedo MD Primary Care Provider Lola mares Encounter Details Date Type Department Care Team Description 02/09/2024 SCAN [facility] Medical [facility] [address] [facility] [address] [place] [phone] Vijay Powell DPM 175 [facility] [address] [place] [id number] Social History Tobacco Use Types Packs/Day Years [...] on filedocumented in this encounter Care Teams Store Stock Associate Relationship Specialty Start Date End Date Julia Oviedo MD PCP - General Internal Medicine 08/02/23 documented as of this encounter
--- OUTSIDE RECORDS SUMMARY | 2024-10-12 10:48 | XMS_ITS | Encounter Summary ---
Author Organization [facility] Address [address] [place] [address] Care Team Providers Care Safe Deposit Attendant Name Role Phone Julia Oviedo MD Primary Care Provider [phone] Encounter Details Date Type Department Care Team (Late Contact Info) Description 10/11/2024 Telephone Orthopedic Surgery - [place] [address] [phone] Vijay oPwell DPM [address] [address] Social History Tobacco Use Types Packs/Day Years Used Date Smoking Tobacco: Never Assessed Comments Unknown Sex and Gender Information Value Date Recorded Sex Assigned at Not on file Legal Sex Female 10:48 PM EST Gender Identity Not on file Sexual Orientation Not on file documented as of this encounter Progress Notes * Omayra Marques - 10/11/2024 8:55 AM EDT Get [facility] PreOp provider calling with questions about procedure Anesthesia plan Procedure time allotted Procedure? Diagnosis Can LVM [phone] documented in this encounter Plan of Treatment Upcoming Encounters Date Type Department Care Team (Late Contact Info) Description 10/23/2024 8:00 AM EDT Consult Orthopedic Surgery - [place] [address] [phone] Vijay Powell DPM [address] [address] 10/26/2024 12:15 PM EDT Hospital Encounter [facility] Main [place] [address] [place] [phone] Vijay Powell DPM [address] [address] 10/26/2024 12:15 PM EDT - 10/26/2024 1:45 PM EDT Surgery [facility] Main OR [address] [place] [phone] Vijay Powell DPM [address] [address] EXCISION LESION SOFT TISSUE RIGHT FOOT [59525 (CPT??)] 11/08/2024 1:30 PM EDT Office Visit Orthopedic Surgery - [place] [address] [phone] Vijay Powell DPM [address] [address] Scheduled Procedures Name Priority Associated Diagnoses Date/Ti me EXCISION LESION SOFT TISSUE FOOT Other bursal cyst, right ankle and foot 10/26/2024 12:15 PM EDT documented as of this encounter Visit Diagnoses Not on filedocumented in this encounter Care Teams Safe Deposit Attendant Relationship Specialty Start Date End Date Julia Oviedo MD [address] [place] [address] , [address] [facility] D/B/A: [facility] [place] PCP - General 08/02/23 documented as of this encounter
--- OUTSIDE RECORDS SUMMARY | 2024-10-12 10:48 | XMS_ITS | Encounter Summary ---
Author Organization [facility] Address [address] [place] [address] Care Team Providers Care Executive Director Contract Shop Name Role Phone Gretel So MD Primary Care Provider Mario Lucas Primary Care Provider Kristie Mejia, Pcp Primary Care Provider Julia Eid MD Primary Care Provider Lola mares Encounter Details Date Type Department Care Team Description 05/23/2017 Transfer Records Medical Records [address] [place] [id number] Abstract, Provider Social History Tobacco Use Types [...] on filedocumented in this encounter Care Teams Executive Director Contract Shop Relationship Specialty Start Date End Date Gretel So MD PCP - General Internal Medicine 05/17/17 08/31/17 Mario Torres PCP - General Internal Medicine 09/01/17 09/29/17 Jackie, Pcp PCP - General Internal Medicine 09/30/17 08/01/23 Julia Oviedo MD PCP - General Internal Medicine 08/02/23 documented as of this encounter
--- OUTSIDE RECORDS SUMMARY | 2024-10-12 10:48 | XMS_ITS | Clinical Summary ---
Author Organization [address] [facility] Address [address] [place] [address] Phone Care Team Providers Care Ict Managers Name Role Phone Julia Oviedo MD Primary Care Provider Allergies Active Allergy Reactions Criticality Noted Date [...] (two) times a day. Active INV A35-006 [id number] 3-1 gram packet Take 1 packet by mouth. Take ordered dose of [id number] as directed in the absence of the emergence of diarrhea or sustained nausea. To prepare, add one packet to 250 mL (8 oz) of room temp water, stir well, and drink within 60 minutes. Active omega 7-vfn-kxt-fish oil (Fish OiL) 1,000 (120-180) mg capsule [...] Care Team Description 10/11/2024 Telephone Orthopedic Surgery [facility] [address] [phone] Vijay Powell, DPAshely 08/01/2024 Telephone Orthopedic Surgery [facility] [address] [phone] Vijay Powell DPM Medicaiton questions 07/17/2024 Telephone Orthopedic Surgery - [place] [address] [phone] Vijay Powell DPM from Last [...] (gastroesophageal reflux disease) Constipation Anemia Clotting disorder ([facility] V24) DTR STATES SHE HAS A LONG TIME TO STOP BLEEDING, NODX Chronic pain disorder [place], LOWERBACK, HEADACHE Chronic pain disorder Neuromuscular disorder ([facility] V24, [facility] V28) Arthritis Joint pain Delayed [...] 8:00 AM EDT Consult Orthopedic Surgery - [place] [address] [phone] Vijay Powell DPM [address] [address] 10/26/2024 12:15 PM EDT Hospital Encounter [facility] Main OR [address] [place] [phone] Vijay Powell DPM [address] [address] 10/26/2024 12:15 PM EDT - 10/26/2024 1:45 PM EDT Surgery [facility] Main OR [address] [place] [phone] Vijay Powell DPM [address] [address] EXCISION LESION SOFT TISSUE RIGHT FOOT [[id number] (CPT??)] 11/08/2024 1:30 PM EDT Office Visit Orthopedic Surgery - [place] [address] [phone] Vijay Powell DPM [address] [address] Scheduled Procedures Name Priority Associated Diagnoses Date/Ti [...] C Screening (10/07/2016) Hepatitis C Screening abstracted [facility] Provider MD HEALTH MAINTENANCE Final Result from Last 3 Months or Most Recently Relevant to Health Maintenance Insurance [facility] Care Teams Ict Managers Relationship Specialty Start Date End Date Julia Oviedo MD [address] [facility] , [address] [facility] D/B/A: [facility] GREGORIO Sahni PCP - General 08/02/23
== END 2024-10-12 09:56 | disposition home or self-care (01) ==
LOC: HO.HAP 09:55
PROVIDERS: Visit Provider Internal Medicine
DX: Z46.1 Encounter for fitting and adjustment of hearing aid (principal); H90.3 Sensorineural hearing loss, bilateral
CPT/HCPCS: 92593; 99499

== ENCOUNTER 2024-11-30 12:57 | Outpatient (REF) | payer MEDICARE, MEDICAID, SELFPAY ==
--- OUTSIDE RECORDS SUMMARY | 2024-11-30 12:59 | XMS_ITS | Encounter Summary ---
Author Organization [facility] Address [address] [place] [address] Care Team Providers Care Rv Detailer Name Role Phone Gretel So MD Primary Care Provider Mario Lucas Primary Care Provider Kristie Mejia, Pcp Primary Care Provider Julia Eid MD Primary Care Provider Lola mares Reason for Visit * Reason Comments E-prescribe Rx Request Encounter Details Date Type Department Care Team Description 07/25/2017 Refill Dermatology - [address] [phone] Lindy Pelaez PA-C E-prescribe Rx Request Social [...] on filedocumented in this encounter Care Teams Rv Detailer Relationship Specialty Start Date End Date Gretel So MD PCP - General Internal Medicine 05/17/17 08/31/17 Mario Torres PCP - General Internal Medicine 09/01/17 09/29/17 [facility], Pcp PCP - General Internal Medicine 09/30/17 08/01/23 Julia Oviedo MD PCP - General Internal Medicine 08/02/23 documented as of this encounter
== END 2024-11-30 12:58 | disposition home or self-care (01) ==
LOC: HO.HAP 12:57
PROVIDERS: Visit Provider Internal Medicine
DX: Z46.1 Encounter for fitting and adjustment of hearing aid (principal); H90.3 Sensorineural hearing loss, bilateral
CPT/HCPCS: V5264; V5266

== ENCOUNTER 2024-12-31 14:08 | Outpatient (AMB) | payer MEDICARE, MEDICAID, SELFPAY ==
--- OUTSIDE RECORDS SUMMARY | 2024-12-31 14:59 | XMS_ITS | Encounter Summary ---
Author Organization [facility] Address [address] [place] [address] Care Team Providers Care Tank Carpenter Name Role Phone Gretel So MD Primary Care Provider Mario Lucas Primary Care Provider Kristie Mejia, Pcp Primary Care Provider Julia Eid MD Primary Care Provider Lola mares Reason for Visit * Reason Comments E-prescribe Rx Request Encounter Details Date Type Department Care Team Description 07/25/2017 Refill Dermatology - [address] [phone] Lindy Pelaez PA-C E-prescribe Rx Request Social [...] on filedocumented in this encounter Care Teams Tank Carpenter Relationship Specialty Start Date End Date Gretel So MD PCP - General Internal Medicine 05/17/17 08/31/17 Mario Torres PCP - General Internal Medicine 09/01/17 09/29/17 [facility], Pcp PCP - General Internal Medicine 09/30/17 08/01/23 Julia Oviedo MD PCP - General Internal Medicine 08/02/23 documented as of this encounter
--- OUTSIDE RECORDS SUMMARY | 2024-12-31 15:00 | XMS_ITS | Data Portability ---
Author Organization [facility], Allergy Address [address] [place] [id number] Care Team Providers Care Reo Asset Manager Name Role Phone SUNIL LA Primary Care [...] weeks for reevaluation. All questions were answered. [email or web address] Not available 11/11/2023 13:48:47 11/29/2023 11/29/2023 Left-sided [...] cleaning and maintenance to prevent future otorrhea. [email or web address] Not available 05/28/2024 20:02:08 Plan of Treatment Reminders Order Date Submit Date Provider Last Modified By Organization Details Last Modified Time Details Appointments Establish ed 15 2024 11:15A M ZOEY GOOD PA-C Not available Not available Not available Lab None recorded. Referral None recorded. Procedures None recorded. Surgeries None recorded. Imaging None recorded. Medication Orders clotrimaz ole-betam ethasone 1 %-0.05 % topical cream 2023 024 [facility]/Pharmacy #[id number], [address] [place], [address], 05/29/2024 13:38:28 ciproflox acin 750 mg tablet 2023 024 [email or web address] 32 [facility]/Pharmacy #[id number], [address] [place], [address], 11/29/2023 16:05:50 clotrimaz ole-betam ethasone 1 %-0.05 % topical cream 2023 024 [facility]/Pharmacy #[id number], [address] [place], [address], 11/03/2023 12:17:27 Patient TargetsNo targets recorded. Patient [...] Name and Address Organization Details Recorded Time [employer] [facility] [employer] [facility] 739247205 Active 2016 [employer] [employer] [facility] [employer]; Note: Date Diagnose d: 7 12:36 PM (R42) Not Available [facility] 02:53:47 Otitis externa of bilatera l ears 48722940769 21844 Completed 201601/13/2024 Other otitis externa, bilatera l; Note: Date Diagnose d: 7 12:35 PM (H60.8X3 ) Not Available [facility] 4 02:53:47 Mixed 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, bilatera l 302718017 Active 2016 Mixed 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, bilatera l; Note: Date Diagnose d: 7 11:53 AM (H90.6) Not Available [facility] 4 02:53:43 Bilatera l disorder of Eustachi an tubes 13473633643 81634 Active 2016 Other specifie d disorder s of Eustachi an tube, bilatera l; Note: Date Diagnose d: 7 12:35 PM (H69.83) Not Available [facility] 4 02:53:45 Bilatera l earache 225632053 Active 2016 Otalgia, bilatera l; Note: Date Diagnose d: 04/12/20 17 3:29 PM (H92.03) Not Available [facility] 4 02:53:46 Nasal congesti on 03505520 Active 2016 Nasal congesti on; Note: Date Diagnose d: 04/12/20 17 3:28 PM (R09.81) Not Available [facility] 4 02:53:46 Eczema NOS Active 2016 Eczema NOS; Note: Date Diagnose d: 05/12/20 17 4:20 PM (L30.9) Not Available [facility] 4 02:53:42 Dysphagi a 44369450 Active 2016 Dysphagi a, unspecif ied; Note: Date Diagnose d: 05/12/20 17 4:27 PM (R13.10) Not Available [facility] 4 02:53:43 Chronic pharyngi tis 786312 Active 2016 Chronic sore throat; Note: Date Diagnose d: 05/12/20 17 4:24 PM (J31.2) Not Available [facility] 4 02:53:43 Headache 28554813 Active 2018 Facial pain NOS; Note: Date Diagnose d: 9 2:54 PM (R51) Not Available [facility] 4 02:53:44 Allergic rhinitis 31439239 Active 2018 Other allergic rhinitis ; Note: Date Diagnose d: 9 2:55 PM (J30.89) Not Available [facility] 4 02:53:47 Diffuse otitis externa 43017658 Active 2020 Diffuse otitis externa, left ear; Note: Date Diagnose d: 09/18/2020 3:45 PM (H60.312 ) Not Available [facility] 4 02:53:46 Bilatera l tympanic membrane central perforat ion 40068770655 59299 Active 2020 Central perforat ion of tympanic membrane , bilatera l; Note: Date Diagnose d: 1 3:12 PM (H72.02) Not Available [facility] 4 02:53:44 Otalgia of left ear 1402096723 Active 2020 Otalgia, left ear; Note: Date Diagnose d: 03/27/20 21 10:35 AM (H92.02) Not Available [facility] 4 02:53:44 Pain of left temporom andibula r joint 71595974968 458639 Active 2020 Arthralg ia of left temporom andibula r joint; Note: Date Diagnose d: 03/27/20 21 10:35 AM (M26.622 ) Not Available [facility] 4 02:53:45 Otalgia 24357328 Active 2020 Otalgia; Note: Date Diagnose d: 03/27/20 21 10:33 AM (388.70) Not Available [facility] 4 02:53:44 Impacted cerumen of bilatera l ears 73202943256 54880 Active 2022 Impacted cerumen, bilatera l; Note: Date Diagnose d: 3 3:33 PM (H61.23) Not Available [facility] 4 02:53:48 Otorrhea of left ear 60480289928 48417 Active 2023 Otorrhea , left ear; Note: Date Diagnose d: 09/14/2023 3:39 PM (H92.12) Not Available [facility] 4 02:53:47 Acute infectiv e otitis externa 925042602 Active 2023 LUCA VARGAS PA-C [address] [facility] [address], [place], [address] , 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 - [facility] 4 12:09:27 Chronic mycotic otitis externa 841860599 Active 2023 LUCA VARGAS PA-C [address] [facility],[place] [address], [place], [address] , [place] - [facility] 4 12:09:27 Candidal otitis externa 85830123 Active 2023 LUCA VARGAS PA-C [address] [facility],[place] [address], [place], [address] , [place] - [facility] 4 12:09:27 Bilatera l perforat ion of tympanic membrane s 47856785530 28831 Active 2023 LUCA VARGAS PA-C [address] [facility],[place] [address], [place], [address] , [facility] - [facility] 4 12:10:39 Cellulit is of face 985922834 Active 2023 KUSUM BARTLETT PA-C [address] [facility],[place] [address], [place], [address] , [facility] - [facility] 4 13:49:33 Problem Notes None recorded. Procedures Surgical History Date Name Laterality Status Provider Name and Address Organization Details Recorded Time 05/29/20 24 Cerumen removal with microscope bilateral completed RAYNA GAY MD [address] [facility],[place] [address], [place], [address], [place] - [facility] 05/29/2024 13:41:27 11/11/19 24 Cerumen removal without microscope right completed KUSUM BARTLETT PA-C [address] [place] [address],[place] [address], [place], [address], [facility] - [facility] 11/11/2023 13:46:54 Carpal tunnel surgery completed Sunil Bermeo [place] - [facility] 11/03/2023 11:50:12 cholecystectomy completed Sunil Bermeo [facility] 11/03/2023 11:50:21 Imaging Results None recorded. Procedure Notes None recorded. Medical Equipment None Reported. Allergies Allergen ID Allergen Name Allergen Category Reaction Reaction Severity Criticality Documentation Date Start Date Code Code System Note Provider Name and Address Organization Details Recorded Time 66642 celecoxib medicatio n other Not available Not available 10/25/2023 68066 7 RxNorm React ion: unkno wn, unspe cifie d;; Not Available [facility] 4 00:49:36 12615 pregabali n medicatio n other Not available Not available 10/25/2023 96734 2 RxNorm React ion: unkno wn, unspe cifie d;; Not Available [facility] 4 00:49:49 Medications Name Sig Start Date Stop Date Status Note LastModified by Organization Details LastModified Time amoxicill in 500 mg capsule TOME 1 C PSULA ORALLY EVERY 12 HOURS FOR 7 DAYS 11/28 completed Not Available Not Available Not Available neomycin- polymyxin -hydrocor t 3.5 mg/mL-10, 000 unit/mL-1 % ear solution 01/10 completed Medicati on ID: [id number] D uration Value: 10 Reason: () Brand [...] mg capsule 01/10 completed Medicati on ID: [id number] D uration Value: 30 Reason: () Brand Name: acquentni n Send Method: E-Prescr ibed Sub s Allowed: subs OK Medic ationGen ericName : acitreluis n Not Available Not Available Not Available fluconazo le 150 mg tablet PLEASE SEE ATTACHED FOR DETAILED DIRECTIO NS active Not Available Not Available No t Available Senna Lax 8.6 mg tablet 2016 active Medicati on ID: [id number] D uration Value: 30 Brand Name: Senna [...] affected area 2016 active Medicati on ID: 765060 D uration Value: 14 Prescri bed By Name: Reynaldo barger MD Brand Name: clotrima zole-bet amfrancescao michael Send Method: E-Prescr ibed Sub s Allowed: subs OK Speci al Instruct ion: Apply with finger to ear canal skin. Me dication GenericN luciano: clotrima zole-bet amethaso ne Not Available Not Available Not Available Fiber Laxative (calcium polycarbo hansel) 625 mg tablet 01/10 completed Medicati on ID: 981637 D uration Value: 30 Reason: () Brand Name: Fiber Laxative (ca polycarb o) Send Method: E-Prescr ibed Sub s Allowed: subs OK Speci al Instruct ion: TAKE 1-2 CAPSULES TWICE A DAY ORALLY 30 DAYS Med icationG enericNa me: Fiber Laxative (ca polycarb o) Not Available Not Available Not Available sumatript an 25 mg tablet 2018 active Medicati on ID: [id number] D uration Value: 30 Brand Name: sumatrip moran succindariana e Send Method: E-Prescr ibed Sub s Allowed: subs OK Medic ationGen ericName : pacheco moran succinat e Not Available Not Available Not Available famotidin e 40 mg tablet TOME FATMATA TABLETA TODOS LOS D AL ACOSTARS E active Not Available Not Available No t Available prednison e 20 mg tablet 01/10 completed Medicati on ID: [id number] D uration Value: 9 Reason: () Brand [...] twice a day active Medicati on ID: 281158 D uration Value: 10 Prescri bed By Name: SESAR Deluca nd Name: ofloxaci n Send Method: E-Prescr ibed Sub s Allowed: subs OK Medic ationGen ericName : ofloxaci n Not Available Not Available Not Available Gas Relief (simethic one) 125 mg capsule 01/10 completed Medicati on ID: [id number] D uration Value: 30 Reason: () Brand Name: Gas Relief S end Method: E-Prescr ibed Sub s Allowed: subs OK Speci al Instruct ion: TOME FATMATA CAPSULA POR VIA ORAL DOS VECES AL ACT CUANDO SEA NECESARI O Medica tionGene ricName: Gas Relief Not Available Not Available Not Available Vitamin C 1,000 mg tablet 2016 active Medicati on ID: 689253 D uration Value: 30 Brand Name: Vitamin [...] mg tablet 2020 active Medicati on ID: 493253 B rand Name: baclofen Send Method: E-Prescr ibed Sub s Allowed: subs OK Speci al Instruct ion: TOME FATMATA TABLETA POR V A ORAL CADA OCHO HORAS PARA EL ESPASMO MUSCULAR CUANDO SEA NECESARI O Medica tionGene ricName: baclofen Not Available Not Available Not Available benzonata te 100 mg capsule 01/10 completed Medicati on ID: 453202 D uration Value: 10 Reason: () Brand Name: benzonat ate Send Method: E-Prescr ibed Sub s Allowed: subs OK Medic ationGen ericName : benzonat ate Not Available Not Available Not Available gemfibroz il 600 mg tablet 2018 active Medicati on ID: 296330 D uration Value: 30 Brand Name: gemfibro [...] iron) tablet 2020 active Medicati on ID: 898362 B rand Name: ferrous sulfate Send Method: [...] eye drops 01/10 completed Medicati on ID: 411275 D uration Value: 10 Reason: () Brand [...] solution Apply 11/02 completed Medicati on ID: 660079 D uration Value: 14 Prescri bed By Name: SESAR Roman nd Name: clotrima zole Sen d Method: E-Prescr ibed Sub s Allowed: subs OK Speci al Instruct ion: 4 drops to both ears BID x 2 weeks Me dication GenericN luciano: clotrima zole Med ication ID: [id number] D uration Value: 14 Prescri bed By Name: SESAR Roman nd Name: clotrima zole Sen d Method: E-Prescr ibed Sub s [...] mg capsule 2016 active Medicati on ID: 864993 D uration Value: 30 Brand Name: gabapent in Send Method: E-Prescr ibed Sub s Allowed: subs OK Speci al Instruct ion: TOME FATMATA CAPSULA TODOS LOS BAKER Med icationG enericNa me: gabapent in Not Available Not Available Not Available omeprazol e 20 mg capsule,d elayed release 2016 active Medicati on ID: 156328 D uration Value: 30 Brand Name: omeprazo [...] tended release 2016 active Medicati on ID: 286455 D uration Value: 5 Brand Name: Mapap [...] unit) capsule 2016 active Medicati on ID: 077667 D uration Value: 30 Brand Name: Vitamin [...] as directed 2021 active Medicati on ID: 900918 D uration Value: 14 Brand Name: Ciprodex Send Method: E-Prescr ibed Sub s Allowed: subs OK Speci al Instruct ion: x 14 days Med icationG enericNa me: Ciprodex Not Available Not Available Not Available rosuvasta tin 20 mg tablet 01/10 completed Medicati on ID: [id number] D uration Value: 30 Reason: () Brand Name: rosuvast atin Sen d Method: E-Prescr ibed Sub s Allowed: subs OK Speci al Instruct ion: TOME FATMATA TABLETA TODOS LOS BAKER [facility] rosuvast atin Not Available Not Available Not Available cranberry extract 500 mg capsule 2016 active Medicati on ID: 051127 D uration Value: 30 Brand Name: cranberr y extract Send Method: E-Prescr ibed Sub s Allowed: subs OK Speci al Instruct ion: TOME FATMATA CAPSULA POR VIA ORAL TODOS LOS BAKER SCOTT LO INDICADO Medicat ionGener icName: cranberr y extract Not Available Not Available Not Available Fiber Therapy (methylce llulose) 500 mg tablet 01/10 completed Medicati on ID: 945742 D uration Value: 30 Reason: () Brand [...] elayed release 01/10 completed Medicati on ID: 844903 D uration Value: 30 Reason: () Brand Name: duloxeti ne Send Method: E-Prescr ibed Sub s Allowed: subs OK Speci al Instruct ion: TOME FATMATA CAPSULA POR VIA ORAL TODOS LOS BAKER Med icationG enericNa me: duloxeti ne Not Available Not Available Not Available ProAir HFA 90 mcg/actua tion aerosol inhaler 2 puff 2018 active Medicati on ID: [id number] D uration Value: 30 Brand Name: ProAir [...] aerosol spray 2018 active Medicati on ID: 839762 D uration Value: 30 Brand Name: QNASL [...] both nostrils 2018 active Medicati on ID: 791040 D uration Value: 120 Prescri bed By Name: Reynaldo barger MD Brand Name: Flonase Allergy Relief S end Method: E-Prescr ibed Sub s Allowed: subs OK Medic ationGen ericName : Flonase Allergy Relief Not Available Not Available Not Available Trulance 3 mg tablet 2018 active Medicati on ID: 033076 D uration Value: 30 Brand Name: Trulance [...] Updated DateTime 11/11/2023 154.94 cm 28.2 kg/m2 38077.26 g Sunil Bermeo [facility] 11/11/2023 13:07:26 Date Recorded Body height Body mass index (BMI) Body weight Provider Name and Address Organization Details Last Updated DateTime 05/29/2024 154.94 cm 28.3 kg/m2 76282.86 g Norm Burgess [facility] 05/29/2024 13:30:36 Social History None recorded. [...] Note [id number] LUCA VARGAS PA-C [facility] [address] [address] 11/03/2023 11:38:00 11/03/2023 12:34:18 Chronic mycotic otitis externa 446197545 H60.399 Previously found to be fungal via culture Bilateral perforation of tympanic membranes 2794403860 449357 H72.93 [id number] KUSUM BARTLETT PA-C [facility] [address] [address] 11/11/2023 12:58:21 11/11/2023 13:33:03 Bilateral disorder of Eustachian tubes 1950363565 136717 H69.83 Bilateral perforation of tympanic membranes 8708169793 034005 H72.93 Cellulitis of face 2001 L03.211 [id number] RAYNA GAY MD [facility] [address] [facility] [place] [address] 11/29/2023 15:24:29 11/29/2023 16:27:24 Bilateral disorder of Eustachian tubes 9065681006 631859 H69.83 Bilateral tympanic membrane central perforation 7323361507 503997 H72.03 Mixed cond uctive and sensorineural hearing loss, bilateral 026372728 H90.6 [id number] RAYNA GAY MD [facility] [address] [place] [address] 05/29/2024 13:13:55 05/29/2024 13:43:03 Bilateral disorder of Eustachian tubes 6498772031 732039 H69.83 Bilateral tympanic membrane central perforation 2335239849 342718 H72.03 Mixed cond uctive and sensorineural hearing loss, bilateral 636145119 H90.6 Dermal mycosis 85393855 B36.9 The skin of the bilateral external auditory canal is showing signs of [...] . Impacted c erumen of bilateral ears 7694911511 757795 H61.23 Health Concerns Section Related Observation LastModified by Organization Detai ls LastModified Time None Recorded Concern Status LastModified by Organization Details LastModified Time None Recorded Advance Directives Directive None Recorded Payers Insurance Date Sequence Insurance Name Policy Number Policy Munguia Covered Member ID Munguia Member ID Guarantor Name 05/29/2024 1 [facility] (MEDICAID HMO) MIGUEL Garsia [id number] Raquel Garsia Notes Date Note Type Note Provider Name and Address Organization Details Recorded Time 11/03/2023 text/html 62 year old marie avelar presents with family member, who provides interpretation services and family declined professional cardiac tech, for evaluation of the left ear. Patient reports she has not taken any drops since early September. The ear is very itchy and there is non-pulsatile tinnitus. No otalgia. There is a little dampness but no elmer otorrhea. Wearing her hearing aids every day. When she removes them she cleans with water and soap and a brush. LUCA VARGAS PA-C [address] [facility],[address], [address], [facility] 11/03/2023 15:33:16 11/11/2023 text/html 62-year-old marie avelar [...] behind the ear. DAGO GODOY MD [address] [facility],[address], [address], [facility] 11/11/2023 17:21:42 11/29/2023 text/html 63-year-old marie avelar with chronic history of ear disease who has been a patient in the office since 2017. She comes in today accompanied by her daughter who is helping to translate Macanese. Patient recently had prolonged episode of left-sided otorrhea which was treated with a combination of antifungal and antibacterial's. Patient notes no further left-sided ear discharge. Patient did have some bleeding during treatment of the left ear which has since resolved. Patient currently using binaural amplification dispensed at [facility]. She has bilateral mixed hearing loss. RAYNA GAY MD [address] [facility],[address], [address], [facility] - [facility] 11/29/2023 17:21:59 05/29/2024 text/html 63-year-old marie avelar [...] her daughter who is helping to translate Macanese. Patient currently using binaural amplification dispensed at [facility]. She has bilateral mixed hearing loss. Patient comes in today for preventative ear cleaning. Patient comes in today accompanied by her daughter. She is helping to translate Macanese. Patient reports itchiness in her ears. RAYNA GAY MD [address] [place] [address], [address], [facility] - [facility] 05/29/2024 13:42:11 OBGyn Episode No OBEpisode recorded.
--- OUTSIDE RECORDS SUMMARY | 2024-12-31 15:00 | XMS_ITS | Clinical Summary ---
Author Organization 175 [facility] Address [address] [place] [address] Phone Care Team Providers Care Quilting Supervisor Name Role Phone Julia Oviedo MD Primary Care Provider [phone] Allergies Active Allergy Reactions Criticality Noted Date Comments Celecoxib Other 10/07/2016 LIVER INFLAMMATION Dicyclomine Other 10/07/2016 VAGINAL RASH Griseofulvin Rash 10/23/2024 Griseofulvin Microsize Other 10/07/2016 IRRITATION OF COLON Morphine Other 10/03/2023 CHEST PAIN Nortriptyline Dizziness 10/07/2016 Octopus Hives 10/23/2024 [place] Other 10/23/2024 Mouth blisters Other 10/07/2016 Oxycodone Unknown 10/07/2016 Oxycodone-Acetaminophen Itching 10/23/2024 Pregabalin Other Low 10/07/2016 sleepy Rosuvastatin Calcium 10/07/2016 Medications loratadine (CLARITIN) 10 mg tablet Take 1 tablet (10 mg total) by mouth 1 (one) time each day. Active Hospital, Clinic, or Other Facility Administered Medication Ordered Dose Route Frequency Start Date End Date Status lidocaine (PF) (XYLOCAINE-MPF) 1 % injection 0.5 mLIndications:Other bursal cyst, right ankle and foot .5 mL inj Once PRN Procedure 12/19/2024 12/19/2024 Ended ketorolac (TORADOL) injection 30 mgIndications:Other bursal cyst, right ankle and foot 30 mg Once PRN Procedure 12/19/2024 12/19/2024 Ended Active Problems Problem Noted Date Diagnosed Date [...] Encounters Date Type Department Care Team Description 12/19/2024 1:00 PM EDT Office Visit Orthopedic Surgery [address] [phone] Vijay Powell DPM Tendonitis, Achilles, right (Primary Dx); Dejon's deformity of right heel; Other bursal cyst, right ankle and foot 11/08/2024 1:30 PM EDT Office Visit Orthopedic Surgery [place] [phone] [phone] Vijay Powell DPM Post-operative state (Primary Dx) 10/26/2024 12:15 PM EDT - 10/26/2024 1:45 PM EDT Surgery [facility] OR [address] [place] [phone] Vijay Powell DPM EXCISION LESION SOFT TISSUE RIGHT FOOT [35477 (CPT )] 10/26/2024 11:37 AM EDT Anesthesia Event [facility] OR [address] [place] [phone] Nadir Patel DO Claudio, Raymund, CRAIG 10/26/2024 10:53 AM EDT - 10/26/2024 1:10 PM EDT Hospital Encounter [facility] Main OR [address] [place] [address] Vijay Powell DPM Other bursal cyst, right ankle and foot Discharge Disposition: Home or Self Care 10/23/2024 8:00 AM EDT Consult Orthopedic Surgery [place] [phone] [phone] Vijay Powell DPM Other bursal cyst, right ankle and foot (Primary Dx); Tendonitis, Achilles, right; Dejon's deformity of right heel; Acquired hammer toe of right foot 10/16/2024 Telephone Orthopedic Surgery [place] [phone] [phone] Brandie Travis (No PA Required Dr Powell Surgery 10/26/2024) 10/11/2024 Telephone Orthopedic Surgery [place] [phone] [phone] Vijay Powell DPM from Last 3 Months Surgical History Surgery Date Site/Laterality Comments OTHER SURGICAL HISTORY CHOLECYSTECTOMY BREAST BIOPSY Left EAR BIOPSY Right CYST REMOVAL Left NECK CARPAL TUNNEL RELEASE Bilateral X3 SX ON RIGHT, X2 SX ON LEFT Medical History Medical History Date Comments Adverse effect of anesthesia NEW ES A LONG TIME TO WAKE UP Hyperlipidemia Sleep apnea HL (hearing loss) B ANN Dysphagia CHOKES SOMETIMES Liver disease [place] Hx of small bowel obstruction Gastroparesis GERD (gastroesophageal reflux disease) Constipation Anemia Chronic pain disorder [place] IA, LOWERBACK, HEADACHE Chronic pain disorder Neuromuscular disorder (CMS/ HCC V24, CMS/HCC V28) Arthritis Joint pain Delayed emergence from general anesthesia Social History Tobacco Use Types Packs/Day Years Used Date Smoking Tobacco: Never Tobacco Cessation:Counseling Given: Not Answered Alcohol Use Standard Drinks/Week Comments Not Currently 0 (1 standard drink = 0.6 oz pur e alcohol) Comments No Sex and Gender Information Value Date Recorded Sex Assigned at Not on file Legal Sex Female 10:48 PM EST Gender Identity Not on file Sexual Orientation Not on file Obstetrics History Last Filed Vital Signs Vital Sign Reading Time Taken Comments Blood Pressure 116/69 10/26/2024 12:33 PM EDT Pulse 75 10/26/2024 12:33 PM EDT Temperature 36 C (96.8 F) 10/26/2024 12:18 PM EDT Respiratory Rate 16 10/26/2024 12:33 PM EDT Oxygen Saturation 98% 10/26/2024 12:33 PM EDT Inhaled Oxygen Concentration - - Weight 68 kg (150 lb) 10/10/2024 3:00 PM EDT Height 154.9 cm (5' 1 ) 10/10/2024 3:00 PM EDT Body Mass Index 28.34 10/10/2024 3:00 PM EDT Plan of Treatment Upcoming Encounters Date Type Department Care Team (Late st Contact Info) Description 01/29/2025 2:00 PM EDT Office Visit Orthopedic Surgery - [place] [phone] [phone] Vijay Powell, DPM [address] [phone] Health Maintenance Due Date Last Done Comments Breast Cancer Screening 1960 Pneumococcal Vaccine: 50+ Years (1 of 2 - PCV) 11/13/1978 Cervical Cancer Screening: P ap Smear 11/13/1980 Zoster Vaccines (1 of 2) 11/13/2009 Hepatitis B Vaccines (3 of 3 - 19+ 3-dose series) 07/29/2016 02/26/2016, 01/27/2016 RSV Immunization Adult Patients (1 - Risk 60-74 years 1-dose series) 2019 Cholesterol Screening (Lipid Panel) 01/10/2024 Colorectal Cancer Screening: Colonoscopy 01/10/2024 Osteoporosis Screening (Bone Density Screening) 01/10/2024 Social Influencers of Health Screening 01/10/2024 COVID-19 Vaccine (1 - 2023-2 5 season) 2024 Depression Screening 06/13/2024 Influenza Vaccine (#1) 2025 6, 04/25/2012, 02/26/2011 Falls Risk Assessment 10/26/2025 10/26/2024 DTaP,Tdap,and Td Vaccines (3 - Td or Tdap) 01/13/2026 01/14/2016, 08/18/1995 Hepatitis C Screening Completed 10/07/2016 HIB Vaccines [...] Procedure Name Priority Date/Time Associated Diagnosis Comments INJECTION TENDON OR LIGAMENT Routine 12/19/2024 1:00 PM EDT Other bursal cyst, right ankle and foot XR FOOT 3+ VIEWS RIGHT Routine 11/08/2024 1:49 PM EDT Post-operative state TISSUE EXAM Routine 10/26/2024 12:02 PM EDT Other bursal cyst, right ankle and foot CA EXCISION TUMOR/SOFT TISSUE FOOT/TOE SUBFASCIAL < 1.5 CM 10/26/2024 11:40 AM EDT Other bursal cyst, right ankle and foot Special Needs 1-HR CASE HM HEPATITIS C SCREENING Routine 10/07/2016 from Last 3 Months or Most Recently Relevant to Health Maintenance Results * Injection tendon or ligament (12/19/2024 1:00 PM EDT) Narrative Vijay Powell DPM - 12/19/2024 1:00 PM EDT Vijay Powell DPM 12/19/2024 5:24 PM Injection tendon or ligament Indications: pain Details: 25 G needle Medications: 0.5 mL lidocaine (PF) 1 %; 30 mg ketorolac 30 mg/mL Informed Consent: Site: Foot ligament tendon Vijay Powell DPM IN CLINIC/BEDSIDE ORDERAB LES Final Result * XR Foot 3+ Views Right (11/08/2024 1:49 PM EDT) Anatomical Region Laterality Modality Lower Extremities, Foot Right Computed Radiography Narrative 12/06/2024 7:51 AM EDT Right foot 3 views nonweightbearing films Stable postoperative changes no bony changes Vijay Powell DPM IMG XR PROCEDURES Final R esult * Tissue exam (10/26/2024 12:02 PM EDT) Final Diagnosis Soft tissue-Toe, Right, 5th-excision: -VASCULAR LEIOMYOMA 10/29/2024 11:[address] [facility] Gross Description A. Toe, Right, 5th soft tissue mass: Labeled toe R, right received in formalin is a 0.5 x 0.4 cm previously disrupted moran-white firm nodule which is inked blue and bisected. The cut surfaces are moran-white, solid, and homogenous. The specimen is entirely submitted one cassette, two pieces. WES 10/29/2024 11:[address] [facility] Disclaimer Unless otherwise specified, all tissue is 10% NB formalin fixed and paraffin embedded. 10/29/2024 11:[address] [facility] Tissue Structure of toe of right foot / Unknown 10/26/2024 12:02 PM EDT 10/26/2024 1:30 PM EDT Vijay Powell DPM LAB PATHOLOGY ORDERABLES Final Result [facility] [address] [place] [address], [place] [phone] * Hepatitis C Screening (10/07/2016) Hepatitis C Screening abstracted us Historical Provider MD HEALTH MAINTENANCE Final Result from Last 3 Months or Most Recently Relevant to Health Maintenance Insurance [facility] [place] [address] MEDICAID - [place] Care Teams Quilting Supervisor Relationship Specialty Start Date End Date Julia Oviedo MD [address] [place] [address] , [address] [facility] D/B/A: [facility] [place], [place] PCP - General 08/02/23
[2024-12-31 15:14] VITALS: BP 112/60; PULSE 67; TEMP 36.6; O2SAT 98; BMI 29.5
--- NOTE | 2024-12-31 15:14 | MHC.OFFWIV ---
Intake Vital Signs 12/31/24 15:14 Height 5 ft 1 in Weight 156 lb BMI 29.5 BP 112/60 Blood Pressure Location Rt brachial Position Sitting Pulse 67 Pulse Source Pulse Oximeter Temp 97.9 F Temp Source Oral Pulse Oximetry (%) 98 Oxygen Delivery Method Room Air Intake Visit Reasons: EP-lt arm lump, redness and pain Intake Note: presents with painful lump on left forearm for 3 days, redness/hyperpigmentation x 2days. also c/o body chills, fatigue Patient Tobacco Use Status: Never used Tobacco Allergies griseofulvin (From Candie-PEG (ultramicrosize)) Allergy (Intermediate, Verified 12/31/24 15:16) Rash octopus Allergy (Intermediate, Verified 12/31/24 15:16) Hives pregabalin (From Lyrica) Allergy (Intermediate, Verified 12/31/24 15:16) LEethargy, dizziness celecoxib (From Celebrex) Adverse Reaction (Intermediate, Verified 12/31/24 15:16) Problems with Liver dicyclomine Adverse Reaction (Mild, Verified 12/31/24 15:16) stomach upset oxycodone (From Percocet) Adverse Reaction (Mild, Verified 12/31/24 15:16) Lethargy morphine Adverse Reaction (Verified 12/31/24 15:16) Unknown MANDARIN ORANGES Allergy (Severe, Uncoded 10/01/24 14:44) Lip Swelling, Hives PARMELEX Allergy (Intermediate, Uncoded 10/01/24 14:44) Problems with Liver Do you need a note to return to daycare/school/sports/work: No HPI HPI Comments History of Present Illness Details History of Present Illness - The patient is a 64-year-old female presenting with a painful bump on the arm. - The bump was first noticed last Tuesday and was initially not visible but palpable. - Over the days, the bump has grown in size and developed a red hafsa by Tuesday. - The patient denies any trauma to the area but reports associated pain and chills. - The area is described as having a yellowish discoloration, and now an area of purple. - The patient takes aspirin, which may contribute to the hematoma formation. - There is no history of similar occurrences or significant medical history related to this presentation. - She denies fever, chills, trauma, falls, numbness, tingling, redness or warmth. Physical Exam General: Cooperative, healthy appearing, comfortable, no acute distress and well developed Respiratory: Normal respiratory effort and able to speak in complete sentences. Clear to auscultation bilaterally Cardiovascular: Regular rate and rhythm. Normal S1 and S2 Skin: Red hafsa and yellowish discoloration noted, with a little bump and warmth in the affected area, likely a hematoma. No rashes or lesions noted elsewhere. No induration noted. Neuro: Patient oriented x3. Sensation is intact. Extremities: Normal to inspection. Small raised tender round bump on the left forarm with yellowish coloring and purple on the lateral forearm. No warmth noted. No streaking noted. FROM of the left wrist and elbow. Hand building services engineer is intact. Strength is 5/5 on the UE. Patient was informed and verbally consented to the use of an ambient scribe for clinic note documentation during this visit. [facility] Medical History Hematuria Furuncle of buttock Abdominal pain Postmenopausal Muscle cramps Physical exam Fibromyalgia Gastroparesis Midline thoracic back pain Epigastric pain Allergic rhinitis Ingrown toenail of right foot Small bowel obstruction Dyspnea on exertion Elevated AST (SGOT) Nausea RUQ pain H. pylori infection Obesity (BMI 30-39.9) Neuropathy Hearing loss Tendonitis Hyperlipidemia Carpal tunnel syndrome Arthritis Fibromyalgia GRAYSON (obstructive sleep apnea) Iron deficiency anemia Normocytic anemia Surgical History History of esophagogastroduodenoscopy (EGD) Hx of colonoscopy History of endoscopy History of laparoscopic cholecystectomy History of varicose vein stripping Family history of lipoma History of left breast biopsy History of History of temporal artery biopsy History of carpal tunnel repair Family History Father Heart disease Diabetes Hypertension Mother Diabetes Hypertension Arthritis Fibromyalgia Osteoporosis Sister Breast cancer Social History Household Members: Family Caregiver staying overnight: No Housing: Apartment Alcohol intake: never Patient Tobacco Use Status: Never used Tobacco e-Cigarette/Vaping Use: Never Used Second Hand Smoke Exposure: No service: No 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al status: disabled 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: rt 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 Cognitive needs: No Hearing needs: Yes Vision needs: Yes Review of Systems Const All systems reviewed & are unremarkable except as noted in HPI and below Physical Exam Vital Signs: Last Vital Signs Temp 97.9 F 12/31/24 15:14 Pulse 67 12/31/24 15:14 BP 112/60 12/31/24 15:14 Pulse Ox 98 12/31/24 15:14 Oxygen Delivery Method Room Air 12/31/24 15:14 BMI result Body Mass Index 29.5 Assessment & Plan Assessment & Plan (1) Hematoma of left forearm: Code(s): S50.12XA - Contusion of left forearm, initial encounter Plan Most likely hematoma vs mass vs cyst vs cellulitis Plan - Recommend warm or cold compresses to the affected area to alleviate symptoms. - Monitor the area for any increase in size or changes in symptoms. - Consider ordering an ultrasound to evaluate for any underlying mass or pocket. - Antibiotics were considered but not deemed necessary at this time. - Follow up with PCP Orders: Orders US Extremity Nonvas Limited LT Today R22.32 - Localized swelling, mass and lump, left upper limb Coding Level of Care Code Est Pt Level 4 (11788) Diagnoses Hematoma of left forearm S50.12XA
== END 2024-12-31 15:58 | disposition home or self-care (01) ==
PROVIDERS: PCP Internal Medicine; Visit Provider Physician Assistant Medical
DX: S50.12XA Contusion of left forearm, initial encounter (principal)

== ENCOUNTER → 2024-12-31 14:08 | Outpatient (BNVA) | payer OTHER, SELFPAY | PROVIDERS: PCP Internal Medicine; Visit Provider Physician Assistant Medical | DX: S50.12XA Contusion of left forearm, initial encounter (principal); R22.32 Localized swelling, mass and lump, left upper limb; X58.XXXA Exposure to other specified factors, initial encounter; Y93.9 Activity, unspecified; Y92.9 Unspecified place or not applicable; Y99.9 Unspecified external cause status; Z79.82 Long term (current) use of aspirin | CPT/HCPCS: 99212 ==

== ENCOUNTER 2025-01-07 13:57 | Outpatient (REF) | payer OTHER, SELFPAY ==
--- NOTE | ~2025-01-07 | US_ITS ---
Examination:US Extremity Nonvas Limited Lt Technique: Grayscale and color Doppler imaging was performed in the left forearm, in the region of a palpable mass. COMPARISON: None FINDINGS: There is localized spindle-shaped hypoechoic area in along the deep subcutaneous soft tissues and forearm measuring 14 x 8 x 2 mm CC by transverse by AP. On color Doppler, there is no increased peripheral or central flow. There is a vessel immediately superficial to the fluid collection. US/US Extremity Nonvas Limited LT Impression: Small hypoechoic area deep to the subcutaneous soft tissues in the left forearm, likely a nonspecific fluid collection. Electronically signed by: Josh Pak MD 01/07/2025 02:21 PM EDT
--- OUTSIDE RECORDS SUMMARY | 2025-01-07 14:42 | XMS_ITS | Clinical Summary ---
Author Organization 175 [facility] Address [address] [place] [address] Phone Care Team Providers Care Account Support Associate Name Role Phone Julia Oviedo MD Primary Care Provider [phone] Allergies Active Allergy Reactions Criticality Noted Date Comments Celecoxib Other 10/07/2016 LIVER INFLAMMATION Dicyclomine Other 10/07/2016 VAGINAL RASH Griseofulvin Rash 10/23/2024 Griseofulvin Microsize Other 10/07/2016 IRRITATION OF COLON Morphine Other 10/03/2023 CHEST PAIN Nortriptyline Dizziness 10/07/2016 Octopus Hives 10/23/2024 [place] Other 10/23/2024 Mouth blisters Other 10/07/2016 Oxycodone [...] 1:00 PM EDT Office Visit Orthopedic Surgery [address] [phone] Vijay Powell DPM Tendonitis, Achilles, right (Primary Dx); Dejon's deformity of right heel; Other bursal cyst, right ankle and foot 11/08/2024 1:30 PM EDT Office Visit Orthopedic Surgery [place] [phone] [phone] Vijay Powell DPM Post-operative state (Primary Dx) 10/26/2024 12:15 PM EDT - 10/26/2024 1:45 PM EDT Surgery [facility] OR [address] [place] [phone] Vijay Powell DPM EXCISION LESION SOFT TISSUE RIGHT FOOT [52221 (CPT )] 10/26/2024 11:37 AM EDT Anesthesia Event [facility] OR [address] [place] [phone] Nadir Patel DO Claudio, Raymund, CRAIG 10/26/2024 10:53 AM EDT - 10/26/2024 1:10 PM EDT Hospital Encounter [facility] Main OR [address] [place] [address] Vijay Powell DPM Other bursal cyst, right ankle and foot Discharge Disposition: Home or Self Care 10/23/2024 8:00 AM EDT Consult Orthopedic Surgery [place] [address] [phone] Vijay Powell DPM Other bursal cyst, right ankle and foot (Primary Dx); Tendonitis, Achilles, right; Dejon's deformity of right heel; Acquired hammer toe of right foot 10/16/2024 Telephone Orthopedic Surgery [place] [phone] [phone] Brandie Travis (No PA Required Dr Powell Surgery 10/26/2024) 10/11/2024 Telephone Orthopedic Surgery [place] [address] [phone] Vijay Powell DPM from Last [...] PM EDT Office Visit Orthopedic Surgery - [place] [phone] [phone] Vijay Powell, DPM [address] [address] Health Maintenance Due Date Last Done Comments [...] Other bursal cyst, right ankle and foot [place] EXCISION TUMOR/SOFT TISSUE FOOT/TOE SUBFASCIAL < 1.5 [...] 5th-excision: -VASCULAR LEIOMYOMA 10/29/2024 11:55 AM EDT [facility] Gross Description A. Toe, Right, 5th soft tissue mass: Labeled toe R, right received in formalin is a 0.5 x 0.4 cm previously disrupted moran-white firm nodule which is inked blue and bisected. The cut surfaces are moran-white, solid, and homogenous. The specimen is entirely submitted one cassette, two pieces. WES 10/29/2024 11:55 AM EDT [facility] Disclaimer Unless otherwise specified, all tissue is 10% NB formalin fixed and paraffin embedded. 10/29/2024 11:55 AM EDT [facility] Tissue Structure of toe of right foot / Unknown 10/26/2024 12:02 PM EDT 10/26/2024 1:30 PM EDT Vijay Powell DPM LAB PATHOLOGY ORDERABLES Final Result [facility] [address] [place] [address], [place] [phone] * Hepatitis C Screening (10/07/2016) Hepatitis C Screening abstracted us Historical Provider MD HEALTH MAINTENANCE Final Result from Last 3 Months or Most Recently Relevant to Health Maintenance Insurance [employer] MEDICAID - [place] Care Teams Account Support Associate Relationship Specialty Start Date End Date Julia Oviedo MD [address] [place] [address] , [address] [facility] D/B/A: [facility] [place], [place] PCP - General 08/02/23
--- OUTSIDE RECORDS SUMMARY | 2025-01-07 14:42 | XMS_ITS | Data Portability ---
Author Organization [facility], Allergy Address [address] [place] [phone] Care Team Providers Care Lithographer Apprentice Name Role Phone SUNIL LA Primary Care [...] weeks for reevaluation. All questions were answered. [email or web address] Not available 11/11/2023 13:48:47 11/29/2023 11/29/2023 Left-sided [...] cleaning and maintenance to prevent future otorrhea. [email or web address] Not available 05/28/2024 20:02:08 Plan of Treatment [...] 1 %-0.05 % topical cream 2023 024 [facility]/Pharmacy #[id number], [address] [place], [address], 05/29/2024 13:38:28 ciproflox acin 750 mg tablet 2023 024 [email or web address] 32 [facility]/Pharmacy #[id number], [address] [place], [address], 11/29/2023 16:05:50 clotrimaz ole-betam ethasone 1 %-0.05 % topical cream 2023 024 [facility]/Pharmacy #[id number], [address] [place], [address], 11/03/2023 12:17:27 Patient TargetsNo targets recorded. Patient [...] Recorded Time Dizzines s and giddines s 199037106 Active 2016 Dizzines s and giddines s; Note: Date Diagnose d: 7 12:36 PM (R42) Not Available [facility] 02:53:47 Otitis externa of bilatera l ears [id number] 97519 Completed 201601/13/2024 Other otitis externa, bilatera l; Note: Date Diagnose d: 7 12:35 PM (H60.8X3 ) Not Available [facility] 4 02:53:47 Mixed 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, bilatera l 313254662 Active 2016 Mixed 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, bilatera l; Note: Date Diagnose d: 7 11:53 AM (H90.6) Not Available [facility] 4 02:53:43 Bilatera l disorder of Eustachi an tubes 39022853175 69526 Active 2016 Other specifie d disorder s of Eustachi an tube, bilatera l; Note: Date Diagnose d: 7 12:35 PM (H69.83) Not Available [facility] 4 02:53:45 Bilatera l earache 079894746 Active 2016 Otalgia, bilatera l; Note: Date Diagnose d: 04/12/20 17 3:29 PM (H92.03) Not Available [facility] 4 02:53:46 Nasal congesti on 52615889 Active 2016 Nasal congesti on; Note: Date Diagnose d: 04/12/20 17 3:28 PM (R09.81) Not Available [facility] 4 02:53:46 Eczema NOS Active 2016 Eczema NOS; Note: Date Diagnose d: 05/12/20 17 4:20 PM (L30.9) Not Available [facility] 4 02:53:42 Dysphagi a 94461270 Active 2016 Dysphagi a, unspecif ied; Note: Date Diagnose d: 05/12/20 17 4:27 PM (R13.10) Not Available [facility] 4 02:53:43 Chronic pharyngi tis 623524 Active 2016 Chronic sore throat; Note: Date Diagnose d: 05/12/20 17 4:24 PM (J31.2) Not Available [facility] 4 02:53:43 Headache 72267317 Active 2018 Facial pain NOS; Note: Date Diagnose d: 9 2:54 PM (R51) Not Available [facility] 4 02:53:44 Allergic rhinitis 28075222 Active 2018 Other allergic rhinitis ; Note: Date Diagnose d: 9 2:55 PM (J30.89) Not Available [facility] 4 02:53:47 Diffuse otitis externa 86557065 Active 2020 Diffuse otitis externa, left ear; Note: Date Diagnose d: 09/18/2020 3:45 PM (H60.312 ) Not Available [facility] 4 02:53:46 Bilatera l tympanic membrane central perforat ion 86695776138 50018 Active 2020 Central perforat ion of tympanic membrane , bilatera l; Note: Date Diagnose d: 1 3:12 PM (H72.02) Not Available [facility] 4 02:53:44 Otalgia of left ear 0475778699 Active 2020 Otalgia, left ear; Note: Date Diagnose d: 03/27/20 21 10:35 AM (H92.02) Not Available [facility] 4 02:53:44 Pain of left temporom andibula r joint 08207726763 296349 Active 2020 Arthralg ia of left temporom andibula r joint; Note: Date Diagnose d: 03/27/20 21 10:35 AM (M26.622 ) Not Available [facility] 4 02:53:45 Otalgia 59335418 Active 2020 Otalgia; Note: Date Diagnose d: 03/27/20 21 10:33 AM (388.70) Not Available [facility] 4 02:53:44 Impacted cerumen of bilatera l ears 62999675802 83638 Active 2022 Impacted cerumen, bilatera l; Note: Date Diagnose d: 3 3:33 PM (H61.23) Not Available [facility] 4 02:53:48 Otorrhea of left ear 26237522494 94229 Active 2023 Otorrhea , left ear; Note: Date Diagnose d: 09/14/2023 3:39 PM (H92.12) Not Available [facility] 4 02:53:47 Acute infectiv e otitis externa 225928121 Active 2023 LUCA VARGAS PA-C [address] [facility] [place], [place], [address] , [facility] 4 12:08:57 Dermal mycosis 40574554 Active 2023 LUCA VARGAS PA-C [address] [facility],[place] [address], [place], [address] , [facility] 4 12:09:27 Chronic mycotic otitis externa 608715532 Active 2023 LUCA VARGAS PA-C [address] [facility],[place] [address], [place], [address] , [place] [facility] 4 12:09:27 Candidal otitis externa 08058664 Active 2023 LUCA VARGAS PA-C [address] [facility],[place] [address], [place], [address] , [place] [facility] 4 12:09:27 Bilatera l perforat ion of tympanic membrane s 64745271880 33329 Active 2023 LUCA VARGAS PA-C [address] [facility],[place] [address], [place], [address] , [facility] 4 12:10:39 Cellulit is of face 991111200 Active 2023 KUSUM BARTLETT PA-C [address] [facility],[place] [address], [place], [address] , [facility] 4 13:49:33 Problem Notes None recorded. Procedures Surgical History Date Name Laterality Status Provider Name and Address Organization Details Recorded Time 05/29/20 24 Cerumen removal with microscope bilateral completed RAYNA GAY MD [address] [facility] [place] [address], [place], [address], [place] [facility] 05/29/2024 13:41:27 11/11/19 24 Cerumen removal without microscope right completed KUSUM BARTLETT PA-C [address] [place] [address],[place] [address], [place], [address], [facility] 11/11/2023 13:46:54 Carpal tunnel surgery completed Sunil Bermeo [place] [facility] 11/03/2023 11:50:12 cholecystectomy completed Sunil Bermeo [facility] 11/03/2023 11:50:21 Imaging Results None recorded. Procedure Notes None recorded. Medical Equipment None Reported. Allergies Allergen ID Allergen Name Allergen Category Reaction Reaction Severity Criticality Documentation Date Start Date Code Code System Note Provider Name and Address Organization Details Recorded Time 11661 celecoxib medicatio n other Not available Not available 10/25/2023 17672 7 RxNorm React ion: unkno wn, unspe cifie d;; Not Available [facility] 4 00:49:36 32072 pregabali n medicatio n other Not available Not available 10/25/2023 16424 2 RxNorm React ion: unkno wn, unspe cifie d;; Not Available [facility] 4 00:49:49 Medications Name Sig Start Date Stop Date Status Note LastModified by Organization Details LastModified Time amoxicill in 500 mg capsule TOME 1 C PSULA ORALLY EVERY 12 HOURS FOR 7 DAYS 11/28 completed Not Available Not Available Not Available neomycin- polymyxin -hydrocor t 3.5 mg/mL-10, 000 unit/mL-1 % ear solution 01/10 completed Medicati on ID: [id number] D uration Value: 10 Reason: () Brand [...] mg capsule 01/10 completed Medicati on ID: [id number] D uration Value: 30 Reason: () Brand Name: acquentin n Send Method: E-Prescr ibed Sub s Allowed: subs OK Medic ationGen ericName : acitreluis n Not Available Not Available Not Available fluconazo le 150 mg tablet PLEASE SEE ATTACHED FOR DETAILED DIRECTIO NS active Not Available Not Available No t Available Senna Lax 8.6 mg tablet 2016 active Medicati on ID: [id number] D uration Value: 30 Brand Name: Senna [...] affected area 2016 active Medicati on ID: [id number] D uration Value: 14 Prescri bed By [...] mg tablet 01/10 completed Medicati on ID: 136943 D uration Value: 30 Reason: () Brand Name: Fiber Laxative (ca polycarb o) Send Method: E-Prescr ibed Sub s Allowed: subs OK Speci al Instruct ion: TAKE 1-2 CAPSULES TWICE A DAY ORALLY 30 DAYS Med icationG enericNa me: Fiber Laxative (ca polycarb o) Not Available Not Available Not Available sumatript an 25 mg tablet 2018 active Medicati on ID: [id number] D uration Value: 30 Brand Name: sumatrip [...] mg tablet 01/10 completed Medicati on ID: 372182 D uration Value: 9 Reason: () Brand [...] twice a day active Medicati on ID: 480108 D uration Value: 10 Prescri bed By Name: SESAR Deluca nd Name: ofloxaci n Send Method: E-Prescr ibed Sub s Allowed: subs OK Medic ationGen ericName : ofloxaci n Not Available Not Available Not Available Gas Relief (simethic one) 125 mg capsule 01/10 completed Medicati on ID: [id number] D uration Value: 30 Reason: () Brand Name: Gas Relief S end Method: E-Prescr ibed Sub s Allowed: subs OK Speci al Instruct ion: TOME FATMATA CAPSULA POR VIA ORAL DOS VECES AL CAT CUANDO SEA NECESARI O Medica tionGene ricName: Gas Relief Not Available Not Available Not Available Vitamin C 1,000 mg tablet 2016 active Medicati on ID: 289016 D uration Value: 30 Brand Name: Vitamin [...] mg tablet 2020 active Medicati on ID: 818575 B rand Name: baclofen Send Method: E-Prescr ibed Sub s Allowed: subs OK Speci al Instruct ion: TOME FATMATA TABLETA POR V A ORAL CADA OCHO HORAS PARA EL ESPASMO MUSCULAR CUANDO SEA NECESARI O Medica tionGene ricName: baclofen Not Available Not Available Not Available benzonata te 100 mg capsule 01/10 completed Medicati on ID: 116453 D uration Value: 10 Reason: () Brand Name: benzonat ate Send Method: E-Prescr ibed Sub s Allowed: subs OK Medic ationGen ericName : benzonat ate Not Available Not Available Not Available gemfibroz il 600 mg tablet 2018 active Medicati on ID: 860983 D uration Value: 30 Brand Name: gemfibro [...] iron) tablet 2020 active Medicati on ID: 993579 B rand Name: ferrous sulfate Send Method: [...] eye drops 01/10 completed Medicati on ID: 036051 D uration Value: 10 Reason: () Brand [...] solution Apply 11/02 completed Medicati on ID: 485072 D uration Value: 14 Prescri bed By Name: SESAR Roman nd Name: clotrima zole Sen d Method: E-Prescr ibed Sub s Allowed: subs OK Speci al Instruct ion: 4 drops to both ears BID x 2 weeks Me dication GenericN luciano: clotrima zole Med ication ID: [id number] D uration Value: 14 Prescri bed By [...] mg capsule 2016 active Medicati on ID: [id number] D uration Value: 30 Brand Name: gabapent in Send Method: E-Prescr ibed Sub s Allowed: subs OK Speci al Instruct ion: TOME FATMATA CAPSULA TODOS LOS BAKER Med icationG enericNa me: gabapent in Not Available Not Available Not Available omeprazol e 20 mg capsule,d elayed release 2016 active Medicati on ID: 381857 D uration Value: 30 Brand Name: omeprazo [...] tended release 2016 active Medicati on ID: 478228 D uration Value: 5 Brand Name: Mapap [...] unit) capsule 2016 active Medicati on ID: 336191 D uration Value: 30 Brand Name: Vitamin [...] as directed 2021 active Medicati on ID: 184363 D uration Value: 14 Brand Name: Ciprodex Send Method: E-Prescr ibed Sub s Allowed: subs OK Speci al Instruct ion: x 14 days Med icationG enericNa me: Ciprodex Not Available Not Available Not Available rosuvasta tin 20 mg tablet 01/10 completed Medicati on ID: 660763 D uration Value: 30 Reason: () Brand Name: rosuvast atin Sen d Method: E-Prescr ibed Sub s Allowed: subs OK Speci al Instruct ion: TOME FATMATA TABLETA TODOS [place] BAKER [facility] rosuvast atin Not Available Not Available Not Available cranberry extract 500 mg capsule 2016 active Medicati on ID: 714743 D uration Value: 30 Brand Name: cranberr y extract Send Method: E-Prescr ibed Sub s Allowed: subs OK Speci al Instruct ion: TOME FATMATA CAPSULA POR VIA ORAL TODOS [place] BAKER SCOTT LO INDICADO Medicat ionGener icName: cranberr y extract Not Available Not Available Not Available Fiber Therapy (methylce llulose) 500 mg tablet 01/10 completed Medicati on ID: 969707 D uration Value: 30 Reason: () Brand [...] elayed release 01/10 completed Medicati on ID: 868553 D uration Value: 30 Reason: () Brand Name: duloxeti ne Send Method: E-Prescr ibed Sub s Allowed: subs OK Speci al Instruct ion: TOME FATMATA CAPSULA POR VIA ORAL TODOS [place] BAKER Med icationG enericNa me: duloxeti ne Not Available Not Available Not Available ProAir HFA 90 mcg/actua tion aerosol inhaler 2 puff 2018 active Medicati on ID: 137124 D uration Value: 30 Brand Name: ProAir [...] aerosol spray 2018 active Medicati on ID: 862551 D uration Value: 30 Brand Name: QNASL [...] both nostrils 2018 active Medicati on ID: 653289 D uration Value: 120 Prescri bed By Name: Reynaldo barger MD Brand Name: Flonase Allergy Relief S end Method: E-Prescr ibed Sub s Allowed: subs OK Medic ationGen ericName : Flonase Allergy Relief Not Available Not Available Not Available Trulance 3 mg tablet 2018 active Medicati on ID: 938051 D uration Value: 30 Brand Name: Trulance [...] Updated DateTime 11/11/2023 154.94 cm 28.2 kg/m2 76461.26 g Sunil Bermeo [facility] 11/11/2023 13:07:26 Date Recorded Body height Body mass index (BMI) Body weight Provider Name and Address Organization Details Last Updated DateTime 05/29/2024 154.94 cm 28.3 kg/m2 87551.86 g Norm Burgess [facility] 05/29/2024 13:30:36 Social History None recorded. [...] Note [id number] LUCA VARGAS PA-C [facility] [address] [address] 11/03/2023 11:38:00 11/03/2023 12:34:18 Chronic mycotic otitis externa 562105645 H60.399 Previously found to be fungal via culture Bilateral perforation of tympanic membranes 4316390205 601648 H72.93 [id number] KUSUM BARTLETT PA-C [facility] [address] [address] 11/11/2023 12:58:21 11/11/2023 13:33:03 Bilateral disorder of Eustachian tubes 5125597330 719148 H69.83 Bilateral perforation of tympanic membranes 5815262749 703384 H72.93 Cellulitis of face 2001 L03.211 4579 RAYNA GAY MD [facility] [address] [facility] [place] [address] 11/29/2023 15:24:29 11/29/2023 16:27:24 Bilateral disorder of Eustachian tubes 3569673529 691627 H69.83 Bilateral tympanic membrane central perforation 7808332847 833275 H72.03 Mixed cond uctive and sensorineural hearing loss, bilateral 943816852 H90.6 [id number] RAYNA GAY MD [facility] [address] [facility] [place] [address] 05/29/2024 13:13:55 05/29/2024 13:43:03 Bilateral disorder of Eustachian tubes 7890175591 289976 H69.83 Bilateral tympanic membrane central perforation 1143054948 628224 H72.03 Mixed cond uctive and sensorineural hearing loss, bilateral 801221547 H90.6 Dermal mycosis 03196168 B36.9 The skin of the bilateral external [...] . Impacted c erumen of bilateral ears 0131222367 454282 H61.23 Health Concerns Section Related Observation LastModified by Organization Detai ls LastModified Time None Recorded Concern Status LastModified by Organization Details LastModified Time None Recorded Advance Directives Directive None Recorded Payers Insurance Date Sequence Insurance Name Policy Number Policy Munguia Covered Member ID Munguia Member ID Guarantor Name 05/29/2024 1 [employer] - HEALTH NET PLAN (MEDICAID HMO) MIGUEL Garsia [id number] Raquel Garsia OBGylola Episode No OBEpisode recorded.
== END 2025-01-07 13:58 | disposition home or self-care (01) ==
LOC: HO.HMGCX 13:57
PROVIDERS: PCP Internal Medicine; Visit Provider Physician Assistant Medical
DX: R22.32 Localized swelling, mass and lump, left upper limb (principal)
CPT/HCPCS: 76882

== ENCOUNTER → 2025-01-07 14:00 | Outpatient (BNV) | payer OTHER, SELFPAY | PROVIDERS: PCP Internal Medicine; Visit Provider Radiology Diagnostic Radiology | DX: R22.32 Localized swelling, mass and lump, left upper limb (principal) | CPT/HCPCS: 76882 ==

== ENCOUNTER 2025-01-10 10:11 | Outpatient (AMB) | payer OTHER, SELFPAY ==
--- NOTE | 2025-01-10 10:14 | MHC.PC.OV ---
Vital Signs 01/10/25 10:16 Height 5 ft 1 in Weight 156 lb BMI 29.5 BP 110/74 Blood Pressure Location Lt brachial Position Sitting Intake Visit Reasons: left arm bump/bruising Access Control Specialist Required: No Accompanied by: Daughter Allergies griseofulvin (From Candie-PEG (ultramicrosize)) Allergy (Intermediate, Verified 01/10/25 10:24) Rash octopus Allergy (Intermediate, Verified 01/10/25 10:24) Hives pregabalin (From Lyrica) Allergy (Intermediate, Verified 01/10/25 10:24) LEethargy, dizziness celecoxib (From Celebrex) Adverse Reaction (Intermediate, Verified 01/10/25 10:24) Problems with Liver dicyclomine Adverse Reaction (Mild, Verified 01/10/25 10:24) stomach upset oxycodone (From Percocet) Adverse Reaction (Mild, Verified 01/10/25 10:24) Lethargy morphine Adverse Reaction (Verified 01/10/25 10:24) Unknown MANDARIN ORANGES Allergy (Severe, Uncoded 01/10/25 10:24) Lip Swelling, Hives PARMELEX Allergy (Intermediate, Uncoded 01/10/25 10:24) Problems with Liver Medication List - Last Reconciled 01/10/25 by Julia Oviedo MD acetaminophen 1,000 mg PO BID PRN ascorbic acid (vitamin C) 1 g PO BID aspirin 81 mg PO DAILY betamethasone dipropionate 0.05% 0.05 appl topical DAILY calcium carbonate 500 mg PO BID 30 days cholecalciferol (vitamin D3) 1,250 mcg PO QWEEK 90 days coenzyme Q10 (H2Q CoQ10) 200 mg PO DAILY [cpap As directed] loratadine 10 mg PO DAILY 90 days magnesium gluconate 1,000 mg PO BID omega [id number] oil 1,000 (120-180) mg (Fish Oil) 1 cap PO DAILY tacrolimus 0.1% 0.1 appl topical DAILY triamcinolone acetonide 0.025% 1 appl topical BID 2 weeks Tobacco use date assessed: 08/21/24 Fall risk assessment: No Falls in past year Last assessed Fall Risk: 01/10/25 Dental Screening Dental Screen Date: 08/21/24 HPI HPI Comments History of Present Illness Details The patient is a 64-year-old female presenting with venous insufficiency and urgent care follow-up due to left arm lump. She reports having undergone an ultrasound at an urgent care facility, which confirms a fluid collection in the left arm. The patient has been advised to monitor the condition and has a follow-up appointment scheduled for April 02 to reassess the situation and potentially repeat the ultrasound if necessary. She has history of anemia that will be monitor. She also has osteopenia with calcium and vitamin-D and allergic rhinitis on antihistamines as needed. The patient denies any history of smoking or alcohol consumption. She is currently taking several medications and supplements, including Tylenol, vitamin C, aspirin, calcium with vitamin D, coenzyme Q10, loratadine, magnesium, and omega-3. She uses a CPAP machine for sleep apnea management and would need a referral for sleep Medicine. Lastly study was over a year ago. [facility] Medical History (Updated 01/10/25 @ 10:43 by Julia Oviedo MD) Hematuria Furuncle of buttock Abdominal pain Postmenopausal Muscle cramps Physical exam Fibromyalgia Gastroparesis Midline thoracic back pain Epigastric pain Allergic rhinitis Ingrown toenail of right foot Small bowel obstruction Dyspnea on exertion Elevated AST (SGOT) Nausea RUQ pain H. pylori infection Obesity (BMI 30-39.9) Neuropathy Hearing loss Tendonitis Hyperlipidemia Carpal tunnel syndrome Arthritis Fibromyalgia GRAYSON (obstructive sleep apnea) Iron deficiency anemia Normocytic anemia Surgical History History of esophagogastroduodenoscopy (EGD) Hx of colonoscopy History of endoscopy History of laparoscopic cholecystectomy History of varicose vein stripping Family history of lipoma History of left breast biopsy History of History of temporal artery biopsy History of carpal tunnel repair Family History Father Heart disease Diabetes Hypertension Mother Diabetes Hypertension Arthritis Fibromyalgia Osteoporosis Sister Breast cancer Social History Household Members: Family Caregiver staying overnight: No Housing: Apartment Alcohol intake: never Patient Tobacco Use Status: Never used Tobacco e-Cigarette/Vaping Use: Never Used Second Hand Smoke Exposure: No service: No 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al status: disabled 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: rt 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 Cognitive needs: No Hearing needs: Yes Vision needs: Yes Questionnaire Thrive Questionnaire Date Thrive assessed: 10/01/24 I am a: Patient What is your living situation today?: I have a steady place to live Within the past 12 months, did the food you bought not last and you didn't have the money to get more?: Never true Within the past 12 months, did you worry whether your food would run out before you got money to buy more?: Never true Do you have trouble paying for medicines?: No Do you have trouble getting transportation to medical appointments?: No Do you have trouble paying your heating and electricity bill?: No Do you have trouble taking care of your child, family member or friend?: No Do you have trouble with day-to-day activities such as bathing, preparing meals, shopping, managing finances, etc.?: No Are you currently unemployed and looking for a job?: No Are you interested in more education?: No Please select the resources that you would like help with: None Currently or been in a relationship where the following occur: No concerns reported THRIVE Score: 0 SUMMER-7 AMB Questionnaire SUMMER-7 Date SUMMER - 7 assessed: 10/01/24 Source: Developed by Drs. Reynaldo Denson, Marcia Bennett, Lewis Sifuentes and colleagues, with an educational poonam from [employer]. Review of Systems Const All systems reviewed & are unremarkable except as noted in HPI and below Card Denies chest pain at rest, Denies chest pain with activity, Denies edema, Denies irregular heart rhythm, Denies claudication, Denies dyspnea, Denies dyspnea on exertion, Denies orthopnea, Denies paroxysmal nocturnal dyspnea and Denies slow heart rate Resp Denies cough, Denies dyspnea and Denies dyspnea on exertion GI Denies abdominal pain, Denies change in bowel habits, Denies excessive flatus, Denies nausea and Denies vomiting Physical exam (Primary Care) Vital Signs: Last Vital Signs BP 110/74 01/10/25 10:16 BMI result Body Mass Index 29.5 Tobacco/Smoking Status: Tobacco use Status Tobacco use date assessed 08/21/24 01/10/25 10:16 Patient Tobacco Use Status Never used Tobacco 01/10/25 10:16 e-Cigarette/Vaping Use Never Used 01/10/25 10:16 Thrive Assessment: Date of Thrive Assessment Date Thrive assessed 10/01/24 01/10/25 10:16 Currently or been in a relationship where the following occur: No concerns reported Resp Effort & Inspection: normal respiratory effort Auscultation: clear to auscultation bilaterally Cardio Jugular venous distension: no JVD Rate: regular rate Rhythm: regular rhythm Heart sounds: S1 normal heart sound present and S2 normal heart sound present Extrem General: Yes full ROM Coding Level of Care Code Est Pt Level 4 (13185) Complex EM visit Add On G2211 Diagnoses Venous (peripheral) insufficiency I87.2 Allergic rhinitis J30.9 Anemia D64.9 GRAYSON on CPAP G47.33 Time Spent (min) 21 Assessment & Plan Assessment & Plan (1) Venous (peripheral) insufficiency: Code(s): I87.2 - Venous insufficiency (chronic) (peripheral) Category: Medical (2) Allergic rhinitis: Comment: MILD AND TREATED WITH LORATADINE 10 MG ONCE A DAY P.R.N. Code(s): J30.9 - Allergic rhinitis, unspecified Category: Medical (3) Anemia: Code(s): D64.9 - Anemia, unspecified Category: Medical (4) GRAYSON on CPAP: Code(s): G47.33 - Obstructive sleep apnea (adult) (pediatric) Category: Medical Plan The patient will continue to monitor her venous insufficiency, with a follow-up appointment scheduled for April 02. At this appointment, the condition will be reassessed, and another ultrasound may be performed if necessary. Laboratory tests will be conducted to evaluate hemoglobin levels, and the patient is advised that fasting is not required for these tests. The patient is advised to cancel the previously scheduled appointment for February 05, as it is no longer necessary. Additionally, she will be referred to a sleep medicine specialist for further management of her sleep apnea. Patient was informed and verbally consented to the use of an ambient scribe for clinic note documentation during this visit. Orders: Orders Complete Blood Count Auto Diff Today D64.9 - Anemia, unspecified IRON PROFILE Today D64.9 - Anemia, unspecified Referrals Vascular Surgery Referral I83.11 - Varicose veins of right lower extremity with inflammation, I87.2 - Venous insufficiency (chronic) (peripheral) Sleep Medicine Referral G47.33 - Obstructive sleep apnea (adult) (pediatric)
[2025-01-10 10:16] VITALS: BP 110/74; BMI 29.5
--- OUTSIDE RECORDS SUMMARY | 2025-01-10 10:55 | XMS_ITS | Clinical Summary ---
Author Organization [address] [facility] Address [address] [place] [address] Phone Care Team Providers Care Stump Shooter Name Role Phone Julia Oviedo MD Primary Care Provider [phone] Allergies Active Allergy Reactions Criticality Noted Date Comments Celecoxib Other 10/07/2016 LIVER INFLAMMATION Dicyclomine Other 10/07/2016 VAGINAL RASH Griseofulvin Rash 10/23/2024 Griseofulvin Microsize Other 10/07/2016 IRRITATION OF COLON Morphine Other 10/03/2023 CHEST PAIN Nortriptyline Dizziness 10/07/2016 Octopus Hives 10/23/2024 Orbisonia Other 10/23/2024 Mouth blisters Other 10/07/2016 Oxycodone [...] 1:00 PM EDT Office Visit Orthopedic Surgery [address] [phone] Vijay Powell DPM Tendonitis, Achilles, right (Primary Dx); Dejon's deformity of right heel; Other bursal cyst, right ankle and foot 11/08/2024 1:30 PM EDT Office Visit Orthopedic Surgery [place] [address] [phone] Vijay Powell DPM Post-operative state (Primary Dx) 10/26/2024 12:15 PM EDT - 10/26/2024 1:45 PM EDT Surgery [facility] OR [address] [place] [phone] Vijay Powell DPM EXCISION LESION SOFT TISSUE RIGHT FOOT [83431 (CPT )] 10/26/2024 11:37 AM EDT Anesthesia Event [facility] OR [address] [place] [phone] Nadir Patel DO Claudio, Raymund, CRAIG 10/26/2024 10:53 AM EDT - 10/26/2024 1:10 PM EDT Hospital Encounter [facility] [address] [place] [address] Vijay Powell DPM Other bursal cyst, right ankle and foot Discharge Disposition: Home or Self Care 10/23/2024 8:00 AM EDT Consult Orthopedic Surgery [place] [address] [phone] Vijay Powell DPM Other bursal cyst, right ankle and foot (Primary Dx); Tendonitis, Achilles, right; Dejon's deformity of right heel; Acquired hammer toe of right foot 10/16/2024 Telephone Orthopedic Surgery [place] [address] [phone] Brandie Travis (No PA Required Dr Powell Surgery 10/26/2024) 10/11/2024 Telephone Orthopedic Surgery [place] [address] [phone] Vijay Powell DPM from Last [...] PM EDT Office Visit Orthopedic Surgery [place] [address] [phone] Vijay Powell, DPM [address] [phone] Health Maintenance Due Date Last Done Comments [...] Other bursal cyst, right ankle and foot [facility] EXCISION TUMOR/SOFT TISSUE FOOT/TOE SUBFASCIAL < 1.5 [...] 5th-excision: -VASCULAR LEIOMYOMA 10/29/2024 11:55 AM EDT [facility] Gross Description A. Toe, Right, 5th soft tissue mass: Labeled toe R, right received in formalin is a 0.5 x 0.4 cm previously disrupted moran-white firm nodule which is inked blue and bisected. The cut surfaces are moran-white, solid, and homogenous. The specimen is entirely submitted one cassette, two pieces. WES 10/29/2024 11:55 AM EDT [facility] Disclaimer Unless otherwise specified, all tissue is 10% NB formalin fixed and paraffin embedded. 10/29/2024 11:55 AM EDT [facility] Tissue Structure of toe of right foot / Unknown 10/26/2024 12:02 PM EDT 10/26/2024 1:30 PM EDT Vijay Powell DPM LAB PATHOLOGY ORDERABLES Final Result [facility] [address] [place] [address], [place] [phone] * Hepatitis C Screening (10/07/2016) Hepatitis C Screening abstracted us Historical Provider MD HEALTH MAINTENANCE Final Result from Last 3 Months or Most Recently Relevant to Health Maintenance Insurance [facility] [place]ICA[place] - [place] Care Teams Stump Shooter Relationship Specialty Start Date End Date Julia Oviedo MD [address] [place] [address] , [address] [facility] D[facility]A: [facility] [place], [place] PCP - General 08/02/23
== END 2025-01-10 10:39 | disposition home or self-care (01) ==
LOC: HO.HMCH 10:12
PROVIDERS: Visit Provider Internal Medicine
DX: I87.2 Venous insufficiency (chronic) (peripheral) (principal); J30.9 Allergic rhinitis, unspecified; D64.9 Anemia, unspecified; G47.33 Obstructive sleep apnea (adult) (pediatric)

== ENCOUNTER → 2025-01-10 10:11 | Outpatient (BNVA) | payer OTHER, SELFPAY | PROVIDERS: Visit Provider Internal Medicine | DX: I83.11 Varicose veins of right lower extremity with inflammation (principal); J30.9 Allergic rhinitis, unspecified; D64.9 Anemia, unspecified; G47.33 Obstructive sleep apnea (adult) (pediatric) | CPT/HCPCS: 99212 ==

== ENCOUNTER 2025-01-24 10:49 | Outpatient (AMB) | payer OTHER, SELFPAY ==
--- NOTE | 2025-01-24 11:04 | A.OFFVIS_ITS ---
Vital Signs 01/24/25 11:05 Height 5 ft 1 in Weight 157 lb 8 oz BMI 29.8 BP 120/70 Blood Pressure Location Rt brachial Position Sitting Pulse 68 Pulse Source Pulse Oximeter Pulse Oximetry (%) 98 Oxygen Delivery Method Room Air Intake Visit Reasons: INP-GRAYSON Intake Note: Patient presents [employer] GRAYSON. She uses a CPAP machine for sleep apnea management. Compliance in chart(90/90 days, >=4hrs-99%, Average usage- 7hr 26min, Med press- 7.8, Med leaks-0.0, AHI-2.2). Patient present mask causing irritation on bridge of nose. Last sleep study was about 2-3 years ago. Field Service Supervisor Required: Yes Field Service Supervisor Language: Medicaid Billing Specialist Services: Field Service Supervisor Offered & Declined Field Service Supervisor Name: opal Information Interpreted: non-clinical & clinical Accompanied by: Daughter Allergies griseofulvin (From Candie-PEG (ultramicrosize)) Allergy (Intermediate, Verified 01/24/25 11:09) Rash octopus Allergy (Intermediate, Verified 01/24/25 11:09) Hives pregabalin (From Lyrica) Allergy (Intermediate, Verified 01/24/25 11:09) LEethargy, dizziness celecoxib (From Celebrex) Adverse Reaction (Intermediate, Verified 01/24/25 11:09) Problems with Liver dicyclomine Adverse Reaction (Mild, Verified 01/24/25 11:09) stomach upset oxycodone (From Percocet) Adverse Reaction (Mild, Verified 01/24/25 11:09) Lethargy morphine Adverse Reaction (Verified 01/24/25 11:09) Unknown MANDARIN ORANGES Allergy (Severe, Uncoded 01/10/25 10:24) Lip Swelling, Hives PARMELEX Allergy (Intermediate, Uncoded 01/10/25 10:24) Problems with Liver HPI Comments Details: 64 year old Anguillan speaking female with obstructive sleep apnea on cpap therapy presents for an evaluation of her GRAYSON per pcp. Daughter Mariama helps with history. Apr 2020 HST is c/w AHI 11 and Oxygen nadirs to 77%. She has mild grayson and was started on cpap. GRAYSON Compliance report 10/2024 - 01/2025 Total hours used 90/90 and >=4hrs-99%, Avg usage- 7hr 26min. Med press-7.8cmH20, Med leaks-0.0, AHI-2.2/hr. She feels refreshed in the mornings with her continuous cpap use. Her last sleep study was over 5 years ago and she is unable to get her supplies due to insurance changes to [facility] as she is now 64 year old. She continues to have irritation on the bridge of her nose cuasing skin break down due to the mask rubbing against the bridge of her nose. She would like to be fitted for a nasal pillow or a mask that does not touch the bridge of her nose. She has RLS symptoms of neuropathy and paresthesias bilaterally in her feet and wakes up at night to stretch her feet. She has a moderate number of muscle cr amps, and r. heel tendonitis, she is being followed by podiatry. She has pain throughouth her body due to fibromyalgia. She denies memory, mood or diet changes. Walks as tolerable. She washes her mask, rinses her hoses, changes the filters and fills reservoir with water daily. [facility] Medical History Hematuria Furuncle of buttock Abdominal pain Postmenopausal Muscle cramps Physical exam Fibromyalgia Gastroparesis Midline thoracic back pain Epigastric pain Allergic rhinitis Ingrown toenail of right foot Small bowel obstruction Dyspnea on exertion Elevated AST (SGOT) Nausea RUQ pain H. pylori infection Obesity (BMI 30-39.9) Neuropathy Hearing loss Tendonitis Hyperlipidemia Carpal tunnel syndrome Arthritis Fibromyalgia GRAYSON (obstructive sleep apnea) Iron deficiency anemia Normocytic anemia Surgical History History of esophagogastroduodenoscopy (EGD) Hx of colonoscopy History of endoscopy History of laparoscopic cholecystectomy History of varicose vein stripping Family history of lipoma History of left breast biopsy History of History of temporal artery biopsy History of carpal tunnel repair Family History Father Heart disease Diabetes Hypertension Mother Diabetes Hypertension Arthritis Fibromyalgia Osteoporosis Sister Breast cancer Social History Household Members: Family Caregiver staying overnight: No Housing: Apartment Alcohol intake: never Patient Tobacco Use Status: Never used Tobacco e-Cigarette/Vaping Use: Never Used Second Hand Smoke Exposure: No service: No 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al status: disabled 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: rt 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 Cognitive needs: No Hearing needs: Yes Vision needs: Yes Review of Systems ENT Reports Normal hearing present (wears hearing aids bilaterally, however they fall out.) Neuro Reports Normal hearing present (wears hearing aids bilaterally, however they fall out.) Physical Exam Vital Signs: Last Vital Signs Pulse 68 01/24/25 11:05 BP 120/70 01/24/25 11:05 Pulse Ox 98 01/24/25 11:05 Oxygen Delivery Method Room Air 01/24/25 11:05 BMI result Body Mass Index 29.8 Const General: cooperative, comfortable and no acute distress Nutritional Appearance: average body habitus Orientation/consciousness: patient oriented x3 HEENT Face and sinus: Yes face symmetric Teeth and gingiva: other (mallampti score is 3) Eyes Pupils: Equal, round and reactive pupils present Neck Neck: Yes full ROM Resp Effort & Inspection: normal respiratory effort and able to speak in complete sentences Neuro General: patient oriented x3 and moves all extremities Cranial nerves: Yes Facial sensation intact/muscles of mastication intact, Yes Equal, round and reactive pupils present, Yes Normal facial strength present, Yes Midline tongue present, Yes Normal hearing present (wears hearing aids bilaterally, however they fall out.), Yes Ability to bilaterally rotate head present and Yes Ability to bilaterally elevate shoulders present Cognition (Neuro): normal cognition Gait exam (Neuro): Normal gait present Motor exam (neuro): 5/5 motor strength present throughout and Normal motor muscle tone present throughout Psych Appearance: grossly normal Mental Status: mental status grossly normal Speech and movement: Other speech and movement exam findings present (Psych) (language barrier) Thought process: Normal thought process present Thought content: Normal thought content present Results Reviewed Results Reviewed: GRAYSON Compliance report 10/2024 - 01/2025 Total hours used 90/90 and >=4hrs-99%, Avg usage- 7hr 26min. Med press-7.8cmH20, Med leaks-0.0, AHI-2.2/hr. Assessment & Plan Assessment & Plan (1) GRAYSON on CPAP: Code(s): G47.33 - Obstructive sleep apnea (adult) (pediatric) Category: Medical (2) Iron deficiency anemia: Code(s): D50.9 - Iron deficiency anemia, unspecified Category: Medical Qualifiers: Iron deficiency anemia type: unspecified iron deficiency Qualified Code(s): D50.9 - Iron deficiency anemia, unspecified Plan GRAYSON evaluate with PSG in lab to r/o grayson, last study was over 5 years ago. Continue Cpap use and > 4 hours a night. Mask fitting irritation of the bridge of nose. Chronically fatigued due to MATT will evaluate with labs. Orders: Orders Vitamin B12 and Folate 01/24/25 D50.9 - Iron deficiency anemia, unspecified Vitamin D 25-OH Total 01/24/25 D50.9 - Iron deficiency anemia, unspecified TSH reflex Free T4 01/24/25 D50. - Iron deficiency anemia, unspecified Hemoglobin A1c 01/24/25 D5. - Iron deficiency anemia, unspecified RT PSG in-lab sleep study 01/24/25 G47.33 - Obstructive sleep apnea (adult) (pediatric) Methylmalonic Acid 01/24/25 D50.9 - Iron deficiency anemia, unspecified, G47.9 - Sleep disorder, unspecified, R53.83 - Other fatigue Ferritin 01/24/25 D50.9 - Iron deficiency anemia, unspecified Homocysteine 01/24/25 D50.9 - Iron deficiency anemia, unspecified, G47.9 - Sleep disorder, unspecified, R53.83 - Other fatigue Magnesium 01/24/25 D50.9 - Iron deficiency anemia, unspecified Patient Instructions: Sleep Hygiene provided: set a scheduled bedtime and wake time to help regulate the circadian rhythm and balance the release of pituitary hormones. Sleep in a dark room, temperatures below 68 degrees, and no devices n bed. Limit caffeinated products 6 hours prior to bed, and limit fluids 2-4 hours prior to bed. Gentle night yoga, diffusing essential oils, and playing soft music can be relaxing. Coding Level of Care Code New Pt Level 4 (33004) Diagnoses GRAYSON on CPAP G47.33 Iron deficiency anemia, unspecified iron deficiency anemia type D50.9 Iron deficiency anemia type: unspecified iron deficiency Sleep Questionnaire Difficulty falling asleep: No Difficulty staying asleep?: No Number of arousals: 2 Snoring: Yes (if not using her cpap) Witnessed apneas: No Gasping arousals: No GERD: No Vivid dreams: No Acting out dreams: No Abnormal behavior in sleep: No Abnormal movements in sleep: Yes (She has moderate RLS) Morning headaches: No Excessive daytime sleepiness: No Daytime naps: Yes (sometimes ) Restless legs: Yes Hallucinations: No Sleep paralysis: No Drop attacks: No Sleep Study: Yes CPAP: Yes
[2025-01-24 11:05] VITALS: BP 120/70; PULSE 68; O2SAT 98; BMI 29.8
--- OUTSIDE RECORDS SUMMARY | 2025-01-24 11:56 | XMS_ITS | Clinical Summary ---
Author Organization 175 [facility] Address [address] [place] [address] Phone Care Team Providers Care Rugby Union Footballer Name Role Phone Julia Oviedo MD Primary Care Provider [phone] Allergies Active Allergy Reactions Criticality Noted Date Comments Celecoxib Other 10/07/2016 LIVER INFLAMMATION Dicyclomine Other 10/07/2016 VAGINAL RASH Griseofulvin Rash 10/23/2024 Griseofulvin Microsize Other 10/07/2016 IRRITATION OF COLON Morphine Other 10/03/2023 CHEST PAIN Nortriptyline Dizziness 10/07/2016 Octopus Hives 10/23/2024 [place] Other 10/23/2024 Mouth blisters Other 10/07/2016 Oxycodone Unknown 10/07/2016 Oxycodone-Acetaminophen Itching 10/23/2024 Pregabalin Other Low 10/07/2016 sleepy Rosuvastatin Calcium 10/07/2016 Medications loratadine (CLARITIN) 10 mg tablet Take 1 tablet (10 mg total) by mouth 1 (one) time each day. Active Active Problems Problem Noted Date Diagnosed [...] 1:00 PM EDT Office Visit Orthopedic Surgery [place] [address] [phone] Vijay Powell DPM Tendonitis, Achilles, right (Primary Dx); Dejon's deformity of right heel; Other bursal cyst, right ankle and foot 11/08/2024 1:30 PM EDT Office Visit Orthopedic [place] [address] [phone] Vijay Powell DPM Post-operative state (Primary Dx) 10/26/2024 12:15 PM EDT - 10/26/2024 1:45 PM EDT Surgery [facility] OR [address] [place] [phone] Vijay Powell DPM EXCISION LESION SOFT TISSUE RIGHT FOOT [11676 (CPT )] 10/26/2024 11:37 AM EDT Anesthesia Event [facility] OR [address] [place] [phone] Nadir Patel DO Claudio, Raymund, CRNA 10/26/2024 10:53 AM EDT - 10/26/2024 1:10 PM EDT Hospital Encounter [facility] OR [address] [place] [phone] Vijay Powell DPM Other bursal cyst, right ankle and foot Discharge Disposition: Home or Self Care from Last 3 Months Surgical History Surgery [...] PM EDT Office Visit Orthopedic Surgery - [place] [address] [phone] Vijay Powell, DPM [address] [address] Health Maintenance Due Date Last Done Comments [...] Other bursal cyst, right ankle and foot DC EXCISION TUMOR/SOFT TISSUE FOOT/TOE SUBFASCIAL < 1.5 [...] 5th-excision: -VASCULAR LEIOMYOMA 10/29/2024 11:55 AM EDT [facility] ([facility] [place]) [facility] Gross Description A. Toe, Right, 5th soft tissue mass: Labeled toe R, right received in formalin is a 0.5 x 0.4 cm previously disrupted moran-white firm nodule which is inked blue and bisected. The cut surfaces are moran-white, solid, and homogenous. The specimen is entirely submitted one cassette, two pieces. WES 10/29/2024 11:55 AM EDT [facility] Disclaimer Unless otherwise specified, all tissue is 10% NB formalin fixed and paraffin embedded. 10/29/2024 11:55 AM EDT [facility] Tissue Structure of toe of right foot / Unknown 10/26/2024 12:02 PM EDT 10/26/2024 1:30 PM EDT Vijay Powell DPM LAB PATHOLOGY ORDERABLES Final Result [facility] [address] [place] [address], * Hepatitis C Screening (10/07/2016) Hepatitis C Screening abstracted Historical Provider HEALTH MAINTENANCE Final Result from Last 3 Months or Most Recently Relevant to Health Maintenance Insurance [facility] PL[facility] MEDICAID - [place] Care Teams Rugby Union Footballer Relationship Specialty Start Date End Date Julia Oviedo MD 2 [facility] , [address] [facility] Physician Associ D/B/A: [facility] [place] PCP - General 08/02/23
== END 2025-01-24 12:01 | disposition home or self-care (01) ==
PROVIDERS: PCP Internal Medicine; Visit Provider Physician Assistant Medical
DX: G47.33 Obstructive sleep apnea (adult) (pediatric) (principal); D50.9 Iron deficiency anemia, unspecified
CPT/HCPCS: 99204

== ENCOUNTER → 2025-01-24 10:49 | Outpatient (BNVA) | payer OTHER, SELFPAY | PROVIDERS: PCP Internal Medicine; Visit Provider Physician Assistant Medical | DX: G47.33 Obstructive sleep apnea (adult) (pediatric) (principal); Z99.89 Dependence on other enabling machines and devices; D50.9 Iron deficiency anemia, unspecified; G47.9 Sleep disorder, unspecified; R53.83 Other fatigue | CPT/HCPCS: 99202 ==

== ENCOUNTER 2025-01-28 09:46 | Outpatient (REF) | payer OTHER, SELFPAY ==
[2025-01-28 10:27] LABS: Hemoglobin A1C 116.9950 umol/L; Total Hemoglobin (HGBA1C) 3024.6878 umol/L
--- OUTSIDE RECORDS SUMMARY | 2025-01-28 10:30 | XMS_ITS | Clinical Summary ---
Author Organization 175 [facility] Address [address] [place] [address] Phone Care Team Providers Care High Man Name Role Phone Julia Oviedo MD Primary Care Provider [phone] Allergies Active Allergy Reactions Criticality Noted Date Comments Celecoxib Other 10/07/2016 LIVER INFLAMMATION Dicyclomine Other 10/07/2016 VAGINAL RASH Griseofulvin Rash 10/23/2024 Griseofulvin Microsize Other 10/07/2016 IRRITATION OF COLON Morphine Other 10/03/2023 CHEST PAIN Nortriptyline Dizziness 10/07/2016 Octopus Hives 10/23/2024 [place] Other 10/23/2024 Mouth blisters Other 10/07/2016 Oxycodone [...] 1:00 PM EDT Office Visit Orthopedic Surgery [place] [address] [phone] Vijay Powell DPM Tendonitis, Achilles, right (Primary Dx); Dejon's deformity of right heel; Other bursal cyst, right ankle and foot 11/08/2024 1:30 PM EDT Office Visit Orthopedic Surgery [facility] [address] [phone] Vijay Powell DPM Post-operative state (Primary Dx) from Last 3 Months Surgical History Surgery [...] PM EDT Office Visit Orthopedic Surgery - [place] [address] [phone] Vijay Powell, DPM [address] [phone] Health Maintenance Due Date Last Done Comments [...] Routine 11/08/2024 1:49 PM EDT Post-operative state HEPATITIS C SCREENING Routine 10/07/2016 from Last 3 Months or Most Recently Relevant to Health Maintenance Results * Injection tendon or ligament (12/19/2024 1:00 PM EDT) Vijay Bee DPM - 12/19/2024 1:00 PM EDT Vijay Powell DPM 12/19/2024 5:24 PM Injection tendon or ligament Indications: pain Details: 25 G needle Medications: 0.5 mL lidocaine (PF) 1 %; 30 mg ketorolac 30 mg/mL Informed Consent: Site: Foot ligament tendon us Vijay Powell DPM IN CLINIC/BEDSIDE ORDERAB LES Final Result * XR Foot 3+ Views Right (11/08/2024 1:49 PM EDT) Anatomical Region Laterality Modality Lower Extremities, Foot Right Computed Radiography Narrative 12/06/2024 7:51 AM EDT Right foot 3 views nonweightbearing films Stable postoperative changes no bony changes Vijay Powell DPM IMG XR PROCEDURES Final R esult * Hepatitis C Screening (10/07/2016) Hepatitis C Screening abstracted Historical Provider MD HEALTH MAINTENANCE Final Result from Last 3 Months or Most Recently Relevant to Health Maintenance Insurance [facility] [place] PLAN MEDICAID - [place] Care Teams High Man Relationship Specialty Start Date End Date Julia Oviedo MD [address] [place] [address] , [facility] [address] [facility] Physician Associ D/B/A: [facility] [place] PCP - General 08/02/23
--- OUTSIDE RECORDS SUMMARY | 2025-01-28 10:30 | XMS_ITS | Encounter Summary ---
Author Organization [facility] Address [address] [place] [address] Care Team Providers Care Coating Mixer Tender Name Role Phone Gretel So MD Primary Care Provider Mario Lucas Primary Care Provider Kristie Mejia, Pcp Primary Care Provider Julia Eid MD Primary Care Provider Lola mares Reason for Visit * Reason Comments E-prescribe Rx Request Encounter Details Date Type Department Care Team Description 07/25/2017 Refill Dermatology - [address] [phone] Lindy Pelaez PA-C E-prescribe Rx Request Social [...] on filedocumented in this encounter Care Teams Coating Mixer Tender Relationship Specialty Start Date End Date Gretel So MD PCP - General Internal Medicine 05/17/17 08/31/17 Mario Torres PCP - General Internal Medicine 09/01/17 09/29/17 [facility], Pcp PCP - General Internal Medicine 09/30/17 08/01/23 Julia Oviedo MD PCP - General Internal Medicine 08/02/23 documented as of this encounter
[2025-01-28 11:14] LABS: Magnesium 1.8 mg/dL (1.6-2.6)
[2025-01-28 11:23] LABS: Ferritin 84 ng/mL (10-250)
[2025-01-28 11:27] LABS: Folate 15.7 ng/mL (> or = 4.0); Vitamin B12 375 pg/mL (200-900)
== END 2025-01-28 09:47 | disposition home or self-care (01) ==
LOC: HO.LAB 09:46
PROVIDERS: Physician Assistant Medical; PCP Internal Medicine; Visit Provider Internal Medicine
DX: R53.83 Other fatigue (principal); G47.9 Sleep disorder, unspecified; D50.9 Iron deficiency anemia, unspecified; Z13.21 Encounter for screening for nutritional disorder; Z13.1 Encounter for screening for diabetes mellitus; Z13.6 Encounter for screening for cardiovascular disorders
CPT/HCPCS: 36415; 82306; 82607; 82728; 82746; 83036; 83090; 83735; 83921; 84443

== ENCOUNTER → 2025-02-27 20:30 | Outpatient (REF) | payer OTHER, SELFPAY ==
--- OUTSIDE RECORDS SUMMARY | 2025-02-27 22:17 | XMS_ITS | Clinical Summary ---
Author Organization 175 [facility] Address 175 [place] [address] Phone Care Team Providers Care Carbon Paper Coating Supervisor Name Role Phone uJlia Oviedo MD Primary Care Provider [phone] Allergies Active Allergy Reactions Criticality Noted Date Comments Celecoxib Other 10/07/2016 LIVER INFLAMMATION Dicyclomine Other 10/07/2016 VAGINAL RASH Griseofulvin Rash 10/23/2024 Griseofulvin Microsize Other 10/07/2016 IRRITATION OF COLON Morphine Other 10/03/2023 CHEST PAIN Nortriptyline Dizziness 10/07/2016 Octopus Hives 10/23/2024 [place] Other 10/23/2024 Mouth blisters Other 10/07/2016 Oxycodone Unknown 10/07/2016 Oxycodone-Acetaminophen Itching 10/23/2024 Pregabalin Other Low 10/07/2016 sleepy Rosuvastatin Calcium 10/07/2016 Medications loratadine (CLARITIN) 10 mg tablet Take 1 tablet (10 mg total) by mouth 1 (one) time each day. Active diclofenac (Voltaren Arthritis Pain) 1 % topical gel Apply 4 g topically 2 (two) times a day. 240 g 1 5 03/30/20 25 Active clotrimazole (LOTRIMIN) 1 % cream Apply topically 2 (two) times a day. 30 g 3 5 02/29/20 25 Active Active Problems Problem Noted Date Diagnosed Date Other bursal cyst, right ankle and foot 05/15/20 24 PLMD (periodic limb movement disorder) 07/28/201 9 Allergic rhinitis 07/08/2017 Asthma 07/08/2017 Fatty [...] Encounters Date Type Department Care Team Description 01/29/2025 2:00 PM EDT Office Visit Orthopedic Surgery [facility] [address] [phone] Vijay Powell DPM Dejon's deformity of right heel (Primary Dx); Post-operative state; Tendonitis, Achilles, right; Dermatophytosis of nail; Tinea pedis of both feet 12/19/2024 1:00 PM EDT Office Visit Orthopedic Surgery [place] [address] [phone] Vijay Powell DPM Tendonitis, Achilles, right (Primary Dx); Dejon's deformity of right heel; Other bursal cyst, right ankle and foot from Last 3 Months Surgical History Surgery [...] disorder Neuromuscular disorder ([facility] V24, [facility] V28) Arthritis Joint pain Delayed [...] Care Team (Late st Contact Info) Description 04/15/2025 1:15 PM EST Office Visit Orthopedic Surgery - [place] [address] [phone] Vijay Powell, DPM [address] [phone] Health Maintenance Due Date Last Done Comments [...] Panel) 01/10/2024 Colorectal Cancer Screening: Colonoscopy 01/10/2024 Medicare Annual Wellness Visit 01/10/2024 Osteoporosis Screening (Bone Density Screening) 01/10/2024 Social Influencers of Health Screening 01/10/2024 Depression Screening 06/13/2024 COVID-19 Vaccine (1 - 2023-2 5 season) 2025 Influenza Vaccine (#1) 2025 6, 04/25/2012, 02/26/2011 [...] Procedure Name Priority Date/Time Associated Diagnosis Comments XR FOOT 3+ VIEWS RIGHT Routine 01/29/2025 2:15 PM EDT Post-operative state INJECTION TENDON OR LIGAMENT Routine 12/19/2024 1:00 PM EDT Other bursal cyst, right ankle and foot HEPATITIS C SCREENING Routine 10/07/2016 from Last 3 Months or Most Recently Relevant to Health Maintenance Results * XR Foot 3+ Views Right (01/29/2025 2:15 PM EDT) Anatomical Region Laterality Modality Lower Extremities, Foot Right Computed Radiography Narrative 01/29/2025 5:53 PM EDT Right foot 3 views Significant retrocalcaneal spur noted Vijay Powell DPM IMG XR PROCEDURES Final R esult * Injection tendon or ligament (12/19/2024 1:00 PM EDT) Narrative Vijay Powell DPM - 12/19/2024 1:00 PM EDT Vijay Powell DPM 12/19/2024 5:24 PM Injection tendon or ligament Indications: pain Details: 25 G needle Medications: 0.5 mL lidocaine (PF) 1 %; 30 mg ketorolac 30 mg/mL Informed Consent: Site: Foot ligament tendon Vijay Powell DPM IN CLINIC/BEDSIDE ORDERAB LES Final Result * Hepatitis C Screening (10/07/2016) Hepatitis C Screening abstracted Historical Provider HEALTH MAINTENANCE Final Result from Last 3 Months or Most Recently Relevant to Health Maintenance Insurance [place] - [place] [facility] Member Subscriber Plan / Payer (Ef fective 2024-Present) Name:Raquel Garsia Relation to Subscriber:Self Name:Raquel Garsia Payer ID:[id number] Group ID:Not on file Type:Not on file Address: [place] [address] [address] [place] [phone] Care Teams Carbon Paper Coating Supervisor Relationship Specialty Start Date End Date Julia Oviedo MD 2 [facility] , [address] [facility] Physician Associ D/B/A: [facility] GREGORIO Sahni PCP - General 08/02/23
== END ==
LOC: HO.SL 20:30
PROVIDERS: PCP Internal Medicine; Visit Provider Physician Assistant Medical
DX: G47.33 Obstructive sleep apnea (adult) (pediatric) (principal)
CPT/HCPCS: 95810

== ENCOUNTER → 2025-02-27 21:52 | Outpatient (BNV) | payer OTHER, SELFPAY | PROVIDERS: PCP Internal Medicine; Visit Provider Psychiatry & Neurology Neurology | DX: G47.61 Periodic limb movement disorder (principal) | CPT/HCPCS: 95810 ==

== ENCOUNTER 2025-03-05 13:39 | Outpatient (AMB) | payer OTHER, SELFPAY ==
--- NOTE | 2025-03-05 13:45 | A.OFFVIS_ITS ---
Vital Signs 03/05/25 13:46 Height 5 ft 1 in Weight 155 lb 6.814 oz BMI 29.4 BP 98/62 Blood Pressure Location Lt brachial Pulse 82 Pulse Source Pulse Oximeter Pulse Oximetry (%) 96 Oxygen Delivery Method Room Air Intake Visit Reasons: Obstructive sleep apnea Intake Note: pt is here for follow up of GRAYSON and she did get a new machine and had a new sleep study by neurologist. Music Library Assistant Required: No Allergies griseofulvin (From Candie-PEG (ultramicrosize)) Allergy (Intermediate, Verified 03/05/25 14:09) Rash octopus Allergy (Intermediate, Verified 03/05/25 14:09) Hives pregabalin (From Lyrica) Allergy (Intermediate, Verified 03/05/25 14:09) LEethargy, dizziness celecoxib (From Celebrex) Adverse Reaction (Intermediate, Verified 03/05/25 14:09) Problems with Liver dicyclomine Adverse Reaction (Mild, Verified 03/05/25 14:09) stomach upset oxycodone (From Percocet) Adverse Reaction (Mild, Verified 03/05/25 14:09) Lethargy morphine Adverse Reaction (Verified 03/05/25 14:09) Unknown MANDARIN ORANGES Allergy (Severe, Uncoded 03/05/25 14:09) Lip Swelling, Hives PARMELEX Allergy (Intermediate, Uncoded 03/05/25 14:09) Problems with Liver Medication List - Last Reconciled 03/05/25 by Sophia Zaidi MD acetaminophen 1,000 mg PO BID PRN ascorbic acid (vitamin C) 1 g PO BID aspirin 81 mg PO DAILY betamethasone dipropionate 0.05% 0.05 appl topical DAILY calcium carbonate 500 mg PO BID 30 days cholecalciferol (vitamin D3) 1,250 mcg PO QWEEK 90 days coenzyme Q10 (H2Q CoQ10) 200 mg PO DAILY [cpap As directed] loratadine 10 mg PO DAILY 90 days magnesium gluconate 1,000 mg PO BID omega 9-fye-muk-fish oil 1,000 (120-180) mg (Fish Oil) 1 cap PO DAILY tacrolimus 0.1% 0.1 appl topical DAILY triamcinolone acetonide 0.025% 1 appl topical BID 2 weeks Do you need a note to return to daycare/school/sports/work: No HPI HPI Obstructive sleep apnea: Details: Neeru is 64 years old very pleasant, Mohawk-speaking female. Who comes for follow-up for sleep apnea and use of CPAP. She is coming almost after 1 year this time. She has been using CPAP very regularly, and sleeping good. Her daughter who came with her , is providing most of the information. She was recently seen at neurology and sleep medicine services of [facility], for headache. She also mentioned about sleep apnea and use of CPAP and mentioned that she was having some trouble with the mask. For this reason she was ordered to have a new CPAP device, which she got to relatively quickly, and has been using it regularly. She has no issues with the current CPAP device or mask. She also denies having any periods of cough or wheezing, PFS Medical History Hematuria Furuncle of buttock Abdominal pain Postmenopausal Muscle cramps Physical exam Fibromyalgia Gastroparesis Midline thoracic back pain Epigastric pain Allergic rhinitis Ingrown toenail of right foot Small bowel obstruction Dyspnea on exertion Elevated AST (SGOT) Nausea RUQ pain H. pylori infection Obesity (BMI 30-39.9) Neuropathy Hearing loss Tendonitis Hyperlipidemia Carpal tunnel syndrome Arthritis Fibromyalgia GRAYSON (obstructive sleep apnea) Iron deficiency anemia Normocytic anemia Surgical History History of esophagogastroduodenoscopy (EGD) Hx of colonoscopy History of endoscopy History of laparoscopic cholecystectomy History of varicose vein stripping Family history of lipoma History of left breast biopsy History of History of temporal artery biopsy History of carpal tunnel repair Family History Father Heart disease Diabetes Hypertension Mother Diabetes Hypertension Arthritis Fibromyalgia Osteoporosis Sister Breast cancer Social History Household Members: Family Caregiver staying overnight: No Housing: Apartment Alcohol intake: never Patient Tobacco Use Status: Never used Tobacco e-Cigarette/Vaping Use: Never Used Second Hand Smoke Exposure: No service: No 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al status: disabled 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: rt hand Cognitive needs: No Hearing needs: Yes Vision needs: Yes Review of Systems Const All systems reviewed & are unremarkable except as noted in HPI and below Eyes Reports no additional complaints ENT Reports nasal congestion (Off and on) Card Denies chest pain, Denies irregular heart rhythm, Denies leg edema and Denies dyspnea on exertion Resp Denies cough, Denies dyspnea on exertion and Denies wheezing GI Reports heartburn (Symptoms of GERD controlled with meds), Reports diarrhea and Reports nausea (Of and on) Reports no additional complaints Musc Reports myalgias (DUE TO FIBROMYALGIA) Skin/Breast Reports system reviewed and no additional complaints, except as documented Neuro Reports no additional complaints Psych Reports no additional complaints Aller/Immun Denies wheezing Physical Exam Vital Signs: Last Vital Signs Pulse 82 03/05/25 13:46 BP 98/62 03/05/25 13:46 Pulse Ox 96 03/05/25 13:46 Oxygen Delivery Method Room Air 03/05/25 13:46 BMI result Body Mass Index 29.4 Const General: comfortable, no acute distress, alert and awake Orientation/consciousness: patient oriented x3 HEENT Other: SHE HAS MILD RETROGANTHIA OF THE LOWER JAW. Head: Yes normal to inspection General nose exam: No nasal polyps present and No nasal discharge present Face and sinus: Yes sinuses nontender Mouth: oropharynx normal Throat: Yes posterior oropharynx normal Eyes General: appearance normal, both eyes and all related structures Neck Neck: Yes normal visual inspection, Yes no lymphadenopathy, Yes trachea midline and Yes no JVD Thyroid: Thyroid normal Chest Chest palpation & inspection: normal inspection of the chest, normal palpation of entire chest wall and no tenderness Resp Effort & Inspection: normal respiratory effort Auscultation: clear to auscultation bilaterally, no rales and no wheezes Percussion: percussion normal Cardio Palpation: normal PMI Rate: regular rate Rhythm: regular rhythm Heart sounds: no gallops and no murmurs GI Palpation (GI): Soft to palpation, nontender, No hepatosplenomegaly present and no masses Auscultation: normal bowel sounds Back/Spine/Pelvis Thoracic/Lumbar Spine: thoracic and lumbar spine normal to inspection Skin General skin exam: no rashes or lesions noted Neuro General: patient oriented x3 and no focal motor deficits Cranial nerves: Yes CN's II-XII intact bilaterally Extrem General: Yes normal to inspection, Yes no clubbing, cyanosis or edema and Yes no calf tenderness Psych Appearance: grossly normal and well kempt Speech and movement: Normal speech and movement present Results Reviewed Results Reviewed: Compliance report for the last 30 nights is reviewed. She missed using only for 1 day. Otherwise has used for 97% of the nights. Average use it per night 7 hours 58 minutes. Pressure setting 5-15 cm. A AHI 2.7 nd she has used mostly between Assessment & Plan Assessment & Plan (1) Dyspnea on exertion: Comment: IT IS VERY MILD AND PARTLY RELATED TO HER BEING OVERWEIGHT PLUS , SOME DECONDITIONING , HAS DEFINITELY IMPROVED FROM BEFORE. Code(s): R06.00 - Dyspnea, unspecified Category: Medical Plan: NO ACTIVE TREATMENT NEEDED AT THIS TIME (2) GRAYSON (obstructive sleep apnea): Comment: SHE HAS MILD DEGREE OF OBSTRUCTIVE SLEEP APNEA, MOSTLY IN SUPINE POSITION. GRAYSON IN HER CASE IS MOSTLY DUE TO RETROGANTHIA OF THE LOWER JAW . USES CPAP, WITH F F MASK , AND PRESSURE OF 5-15 CMs . SHE HAS ALWAYS BEEN VERY COMPLIANT. RECENTLY OBTAINED A NEW CPAP DEVICE WITH A NEW FULLFACE MASK WHICH IS WORKING GOOD . Code(s): G47.33 - Obstructive sleep apnea (adult) (pediatric) Category: Medical Plan: CONTINUE TO USE CPAP EVERY NIGHT REGULARLY FOR FOLLOW-UP, I EXPLAINED TO THE PATIENT AND HER DAUGHTER, THAT LONG SHE IS BEING FOLLOWED UP AT THE NEUROLOGY AND SLEEPS SERVICES OFFICE SHE DOES NOT NEED TO COME TO SEE ME FOR FOLLOW-UP. HOWEVER IF AT ANY POINT SHE DEVELOPS ANY RESPIRATORY PROBLEMS WITH SUCH ASTHMA WHEEZING ETC. SHE CAN GO TO THE PRIMARY CARE PHYSICIAN I WILL BE GLAD TO SEE HER IF REFERRED BY THE PCP. PHYSICIAN. (3) Allergic rhinitis: Comment: MILD AND TREATED WITH LORATADINE 10 MG ONCE A DAY P.R.N. Code(s): J30.9 - Allergic rhinitis, unspecified Category: Medical Plan: OK TO USE LORATADINE 10 MG ONCE A DAY P.R.N. Coding Level of Care Code Est Pt Level 3 (93566) Diagnoses Dyspnea on exertion R06.00 GRAYSON (obstructive sleep apnea) G47.33 Allergic rhinitis J30.9
[2025-03-05 13:46] VITALS: BP 98/62; PULSE 82; O2SAT 96; BMI 29.4
--- OUTSIDE RECORDS SUMMARY | 2025-03-05 16:49 | XMS_ITS | Clinical Summary ---
Author Organization 175 [facility] Address [address] [place] [address] Phone Care Team Providers Care Hospital Pharmacist Name Role Phone Julia Oviedo MD Primary Care Provider [phone] Allergies Active Allergy Reactions Criticality Noted Date Comments Celecoxib Other 10/07/2016 LIVER INFLAMMATION Dicyclomine Other 10/07/2016 VAGINAL RASH Griseofulvin Rash 10/23/2024 Griseofulvin Microsize Other 10/07/2016 IRRITATION OF COLON Morphine Other 10/03/2023 CHEST PAIN Nortriptyline Dizziness 10/07/2016 Octopus Hives 10/23/2024 [place] Other 10/23/2024 Mouth blisters Other 10/07/2016 Oxycodone [...] 30 g 3 5 02/29/20 25 Active Problems Problem Noted Date Diagnosed Date [...] 2:00 PM EDT Office Visit Orthopedic Surgery [facility] [address] [phone] Vijay Powell DPM Dejon's deformity of right heel (Primary Dx); Post-operative state; Tendonitis, Achilles, right; Dermatophytosis of nail; Tinea pedis of both feet 12/19/2024 1:00 PM EDT Office Visit Orthopedic Surgery [facility] [address] [phone] Vijay Powell DPM Tendonitis, Achilles, right (Primary [...] LOWERBACK, HEADACHE Chronic pain disorder Neuromuscular disorder ([facility] V24, [facility] V28) Arthritis Joint [...] PM EST Office Visit Orthopedic Surgery - [place] [address] [phone] Vijay Powell, DPM [address] [phone] Health Maintenance Due Date Last Done Comments [...] Health Maintenance [place] FORMER[facility] OPT[facility] Member Subscriber Plan / Payer (Ef fective 2024-Present) Name:Raquel Garsia Relation to Subscriber:Self Name:Raquel Garsia Payer ID:[id number] Group ID:Not on file Type:Not on file Address: [place] [address] [address] [phone] Care Teams Hospital Pharmacist Relationship Specialty Start Date End Date Julia Oviedo MD 2 [facility] , [address] [facility] Physician Associ D/B/A: [facility] GREGORIO Sahni PCP - General 08/02/23
== END 2025-03-05 14:05 | disposition home or self-care (01) ==
LOC: HO.HPS 13:40
PROVIDERS: PCP Internal Medicine; Visit Provider Internal Medicine
DX: R06.00 Dyspnea, unspecified (principal); G47.33 Obstructive sleep apnea (adult) (pediatric); J30.9 Allergic rhinitis, unspecified
CPT/HCPCS: 99213

== ENCOUNTER → 2025-03-05 13:39 | Outpatient (BNVA) | payer OTHER, SELFPAY | PROVIDERS: PCP Internal Medicine; Visit Provider Internal Medicine | DX: R06.00 Dyspnea, unspecified (principal); G47.33 Obstructive sleep apnea (adult) (pediatric); J30.9 Allergic rhinitis, unspecified | CPT/HCPCS: 99212 ==

== ENCOUNTER 2025-04-02 13:25 | Outpatient (AMB) | payer OTHER, SELFPAY ==
[2025-04-02 13:29] VITALS: BP 104/66; PULSE 73; TEMP 36.3; O2SAT 95; BMI 29.3
--- NOTE | 2025-04-02 13:29 | MHC.PC.OV ---
Vital Signs 04/02/25 13:29 Height 5 ft 1 in Weight 155 lb 4 oz BMI 29.3 BP 104/66 Blood Pressure Location Lt brachial Position Sitting Pulse 73 Pulse Source Pulse Oximeter Temp 97.3 F Temp Source Temporal Artery Scan Pulse Oximetry (%) 95 Oxygen Delivery Method Room Air Intake Visit Reasons: anemia Valve Grinder Required: No Accompanied by: Daughter Allergies griseofulvin (From Candie-PEG (ultramicrosize)) Allergy (Intermediate, Verified 04/02/25 13:43) Rash octopus Allergy (Intermediate, Verified 04/02/25 13:43) Hives pregabalin (From Lyrica) Allergy (Intermediate, Verified 04/02/25 13:43) LEethargy, dizziness celecoxib (From Celebrex) Adverse Reaction (Intermediate, Verified 04/02/25 13:43) Problems with Liver dicyclomine Adverse Reaction (Mild, Verified 04/02/25 13:43) stomach upset oxycodone (From Percocet) Adverse Reaction (Mild, Verified 04/02/25 13:43) Lethargy morphine Adverse Reaction (Verified 04/02/25 13:43) Unknown MANDARIN ORANGES Allergy (Severe, Uncoded 04/02/25 13:43) Lip Swelling, Hives PARMELEX Allergy (Intermediate, Uncoded 04/02/25 13:43) Problems with Liver Medication List - Last Reconciled 04/02/25 by Julia Oviedo MD acetaminophen 1,000 mg PO BID PRN ascorbic acid (vitamin C) 1 g PO BID aspirin 81 mg PO DAILY betamethasone dipropionate 0.05% 0.05 appl topical DAILY calcium carbonate 500 mg PO BID 30 days cholecalciferol (vitamin D3) 1,250 mcg PO QWEEK 90 days coenzyme Q10 (H2Q CoQ10) 200 mg PO DAILY [cpap As directed] loratadine 10 mg PO DAILY 90 days magnesium gluconate 1,000 mg PO BID omega 1-lau-mld-fish oil 1,000 (120-180) mg (Fish Oil) 1 cap PO DAILY ruxolitinib 1.5% (Opzelura) appl topical BID PRN tacrolimus 0.1% 0.1 appl topical DAILY triamcinolone acetonide 0.025% 1 appl topical BID 2 weeks Tobacco use date assessed: 04/02/25 Fall risk assessment: No Falls in past year Last assessed Fall Risk: 04/02/25 Dental Screening Dental Screen Date: 04/02/25 Did you have a dental visit in the last 12 months?: Yes Did you have a dental problem in the last 6 months where you did not have access to dental care?: No Was dental information given to patient?: Patient has dentist HPI HPI Comments History of Present Illness Details The patient is a 64-year-old female presenting with hip and shoulder pain. She reports significant pain in both hips and shoulders, describing it as a strong pain originating from the bone, which has been persistent for a long time. The patient also reports a history of hematuria, for which she is taking Obselura, and has not experienced any previous episodes. She has been diagnosed with eczema and has been prescribed three different creams by her crusher setter, but reports no improvement in her symptoms. The patient mentions experiencing a little bit of depression, although no specific treatment or intervention was discussed during the visit. [facility] Medical History (Updated 04/02/25 @ 14:10 by Julia Oviedo MD) Hematuria Furuncle of buttock Abdominal pain Postmenopausal Muscle cramps Physical exam Fibromyalgia Gastroparesis Midline thoracic back pain Epigastric pain Allergic rhinitis Ingrown toenail of right foot Small bowel obstruction Dyspnea on exertion Elevated AST (SGOT) Nausea RUQ pain H. pylori infection Obesity (BMI 30-39.9) Neuropathy Hearing loss Tendonitis Hyperlipidemia Carpal tunnel syndrome Arthritis Fibromyalgia GRAYSON (obstructive sleep apnea) Iron deficiency anemia Normocytic anemia Surgical History History of esophagogastroduodenoscopy (EGD) Hx of colonoscopy History of endoscopy History of laparoscopic cholecystectomy History of varicose vein stripping Family history of lipoma History of left breast biopsy History of History of temporal artery biopsy History of carpal tunnel repair Family History Father Heart disease Diabetes Hypertension Mother Diabetes Hypertension Arthritis Fibromyalgia Osteoporosis Sister Breast cancer Social History Household Members: Family Caregiver staying overnight: No Housing: Apartment Alcohol intake: never Patient Tobacco Use Status: Never used Tobacco e-Cigarette/Vaping Use: Never Used Second Hand Smoke Exposure: No service: No 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al status: disabled 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 1. Little interest or pleasure in doing things: not at all 2. Feeling down, depressed, or hopeless: not at all 3. Trouble falling or staying asleep, or sleeping too much: nearly every day 4. Feeling tired or having little energy: nearly every day 5. Poor appetite or overeating: not at all 6. Feeling bad about yourself - or that you are a failure or have let yourself or your family down: not at all 7. Trouble concentrating on things, such as reading the newspaper or watching television: not at all 8. Moving or speaking so slowly that other people could have noticed. Or the opposite - being so fidgety or restless that you have been moving around a lot more than usual: not at all 9. Thoughts that you would be better off or of hurting yourself in some way: not at all Total score: 6 Depression Screening Interpretation: Positive Depression Screening Follow-up: Existing condition and Follow-up Visit Requested Depression Screening Done: Yes 65374 - PHQ-9 Billing: Yes Source: Developed by Drs. Reynaldo Denson, Marcia Bennett, Lewis Sifuentes and colleagues, with an educational poonam from [employer]. Thrive Questionnaire Date Thrive assessed: 10/01/24 I am a: Patient What is your living situation today?: I have a steady place to live Within the past 12 months, did the food you bought not last and you didn't have the money to get more?: Never true Within the past 12 months, did you worry whether your food would run out before you got money to buy more?: Never true Do you have trouble paying for medicines?: No Do you have trouble getting transportation to medical appointments?: No Do you have trouble paying your heating and electricity bill?: No Do you have trouble taking care of your child, family member or friend?: No Do you have trouble with day-to-day activities such as bathing, preparing meals, shopping, managing finances, etc.?: No Are you currently unemployed and looking for a job?: No Are you interested in more education?: No Please select the resources that you would like help with: None Currently or been in a relationship where the following occur: No concerns reported THRIVE Score: 0 AUDIT C Alcohol Use Questionnaire (AUDIT-C) 1. How often do you have a drink containing alcohol?: Never 3. How often do you have six or more drinks on one occasion?: Never Total Score: 0 Score Reviewed/Action Taken: No SUMMER-7 AMB Questionnaire SUMMER-7 Date SUMMER - 7 assessed: 10/01/24 Feeling nervous, anxious, or on edge: 0 = Not at all Not being able to stop or control worryin = Several days Worrying too much about different things: 0 = Not at all Trouble relaxin = Several days Being so restless that it is hard to sit still: 1 = Several days Becoming easily annoyed or irritable: 0 = Not at all Feeling afraid as if something awful might happen: 0 = Not at all Total SUMMER-7 score (0-4 normal; 5-9 mild; 10-14 moderate; 15-21 severe): 3 Source: Developed by Drs. Reynaldo Denson, Marcia Bennett, Lewis Sifuentes and colleagues, with an educational poonam from [employer]. SUMMER-7 Assessment Billing SUMMER-7 Assessment Tool: SUMMER-7 Assessment 99924 Review of Systems Const All systems reviewed & are unremarkable except as noted in HPI and below Card Denies chest pain at rest, Denies chest pain with activity, Denies edema, Denies irregular heart rhythm, Denies claudication, Denies dyspnea, Denies dyspnea on exertion, Denies orthopnea, Denies paroxysmal nocturnal dyspnea and Denies slow heart rate Resp Denies cough, Denies dyspnea and Denies dyspnea on exertion Physical exam (Primary Care) Vital Signs: Last Vital Signs Temp 97.3 F 04/02/25 13:29 Pulse 73 04/02/25 13:29 BP 104/66 04/02/25 13:29 Pulse Ox 95 04/02/25 13:29 Oxygen Delivery Method Room Air 04/02/25 13:29 BMI result Body Mass Index 29.3 Tobacco/Smoking Status: Tobacco use Status Tobacco use date assessed 04/02/25 04/02/25 13:33 Patient Tobacco Use Status Never used Tobacco 04/02/25 13:33 e-Cigarette/Vaping Use Never Used 04/02/25 13:33 PHQ-9: PHQ-9 Score PHQ-9: Total score 6 04/02/25 13:33 Depression Screening Interpretation: Positive Depression Screening Follow-up: Existing condition and Follow-up Visit Requested Thrive Assessment: Date of Thrive Assessment Date Thrive assessed 10/01/24 04/02/25 13:33 Currently or been in a relationship where the following occur: No concerns reported Resp Effort & Inspection: normal respiratory effort Auscultation: clear to auscultation bilaterally Cardio Jugular venous distension: no JVD Rate: regular rate Rhythm: regular rhythm Heart sounds: S1 normal heart sound present and S2 normal heart sound present Extrem General: Yes full ROM Coding Level of Care Code Est Pt Level 4 (60161) Diagnoses Venous (peripheral) insufficiency I87.2 Iron deficiency anemia, unspecified iron deficiency anemia type D50.9 Iron deficiency anemia type: unspecified iron deficiency Right shoulder pain M25.511 Acute pain of left shoulder M25.512 Chronicity: acute Right hip pain M25.551 Left hip pain M25.552 GRAYSON on CPAP G47.33 Eczema L30.9 Mild major depression F32.0 Microscopic hematuria R31.29 Additional Codes PHQ-9 - 19853 - PHQ-9 Billing: Yes ([id number]) SUMMER-7 Assessment Billing - SUMMER-7 Assessment Tool: SUMMER-7 Assessment 98272 ([id number]) Time Spent (min) 22 Assessment & Plan Assessment & Plan (1) Venous (peripheral) insufficiency: Code(s): I87.2 - Venous insufficiency (chronic) (peripheral) Category: Medical (2) Iron deficiency anemia: Code(s): D50.9 - Iron deficiency anemia, unspecified Category: Medical Qualifiers: Iron deficiency anemia type: unspecified iron deficiency Qualified Code(s): D50.9 - Iron deficiency anemia, unspecified (3) Right shoulder pain: Code(s): M25.511 - Pain in right shoulder Category: Medical (4) Left shoulder pain: Code(s): M25.512 - Pain in left shoulder Category: Medical Qualifiers: Chronicity: acute Qualified Code(s): M25.512 - Pain in left shoulder (5) Right hip pain: Code(s): M25.551 - Pain in right hip Category: Medical (6) Left hip pain: Code(s): M25.552 - Pain in left hip Category: Medical (7) GRAYSON on CPAP: Code(s): G47.33 - Obstructive sleep apnea (adult) (pediatric) Category: Medical (8) Eczema: Code(s): L30.9 - Dermatitis, unspecified Category: Medical (9) Mild major depression: Code(s): F32.0 - Major depressive disorder, single episode, mild Category: Medical (10) Microscopic hematuria: Code(s): R31.29 - Other microscopic hematuria Category: Medical Plan Plan 1. Pain in unspecified hip M25.559 The patient reports significant pain in both hips, described as a strong pain originating from the bone. A hip X-ray is planned to assess for potential arthritis or other bone-related issues. 2. Pain in unspecified shoulder M25.519 The patient reports significant pain in both shoulders, described as a strong pain originating from the bone. A shoulder X-ray is planned to assess for potential arthritis or other bone-related issues. 3. Hematuria, unspecified R31.9 The patient reports a history of hematuria and is currently taking Obselura for management. Further evaluation may be necessary if symptoms persist. 4. Dermatitis, unspecified L30.9 The patient has been diagnosed with eczema and has been prescribed three different creams by her crusher setter. However, she reports no improvement in her symptoms, indicating a need for reassessment of her treatment plan. 5. Depression, unspecified F32.A The patient mentions experiencing a little bit of depression, although no specific treatment or intervention was discussed during the visit. Orders: Orders XR hip LT min 2V Today M25.552 - Pain in left hip XR hip RT min 2V Today M25.551 - Pain in right hip IRON PROFILE Today D64.9 - Anemia, unspecified XR tibia fibula LT 2V Today M89.8X6 - Other specified disorders of bone, lower leg XR shoulder LT min 2V Today M25.512 - Pain in left shoulder XR shoulder RT min 2V Today M25.511 - Pain in right shoulder Complete Blood Count Auto Diff Today D64.9 - Anemia, unspecified Referrals Vascular Surgery Referral I87.2 - Venous insufficiency (chronic) (peripheral)
--- OUTSIDE RECORDS SUMMARY | 2025-04-02 17:32 | XMS_ITS | Encounter Summary ---
Author Organization [facility] Address [address] [place] [address] Care Team Providers Care Lip Reading Teacher Name Role Phone Julia Ovieod MD Primary Care Provider Lola mares Encounter Details Date Type Department Care Team Description 08/02/2023 [facility] Records [facility] [address] [facility] [address] [place] [phone] Vijay Powell DPM [address] [facility] [address] [place] [id number] Social History Tobacco Use Types Packs/Day Years [...] on filedocumented in this encounter Care Teams Lip Reading Teacher Relationship Specialty Start Date End Date Julia Oviedo MD PCP - General Internal Medicine 08/02/23 documented as of this encounter
--- OUTSIDE RECORDS SUMMARY | 2025-04-02 17:33 | XMS_ITS | Encounter Summary ---
Author Organization [facility] Address [address] [place] [address] Care Team Providers Care Animal Control Supervisor Name Role Phone Julia Oviedo MD Primary Care Provider Lola mares Encounter Details Date Type Department Care Team Description 12/07/2023 [facility] [address] [facility] [address] [place] [phone] Vijay Powell DPM [address] [facility] [address] [place] [id number] Social History Tobacco Use Types Packs/Day Years [...] on filedocumented in this encounter Care Teams Animal Control Supervisor Relationship Specialty Start Date End Date Julia Oviedo MD PCP - General Internal Medicine 08/02/23 documented as of this encounter
--- OUTSIDE RECORDS SUMMARY | 2025-04-02 17:33 | XMS_ITS | Data Portability ---
Author Organization [facility] - [facility], Allergy Address [address] [place] [address] Care Team Providers Care Fund Manager Name Role Phone SUNIL LA Primary Care Provider [phone] SUNIL LA Referring Provider SUNIL LA Primary Care Provider Assessment Encounter [...] weeks for reevaluation. All questions were answered. [email or web address] Not available 11/11/2023 13:48:47 11/29/2023 11/29/2023 Left-sided [...] cleaning and maintenance to prevent future otorrhea. [email or web address] Not available 11/29/2023 16:27:20 05/29/2024 05/29/2024 Left-sided [...] prevent future otorrhea. Not available 05/28/2024 20:02:08 02/01/2025 02/01/2025 There is a 5% perforation of the right tympanic membrane and a 20% perforation of the left tympanic membrane, stable from last visit. . Last audiometric testing was reviewed showing bilateral mixed hearing loss which is currently being remedied with binaural amplification. Cerumen was removed each ear. - She should maintain dry ear precautions - Ok for hearing aids - Clearance today. - 6 Month follow up with PA team for routine ear cleaning [email or web address] Not available 02/01/2025 10:47:22 Plan of Treatment Reminders Order Date Submit Date Provider Last Modified By Organization Details Last Modified Time Details Appointments Establish ed 15 2025 02:15P Ashely SINGH PA-C Not available Not available Not available Lab None recorded. Referral None recorded. Procedures None recorded. Surgeries None recorded. Imaging None recorded. Medication Orders clotrimaz ole-betam ethasone 1 %-0.05 % topical cream 2023 024 [id number], [address] [facility], [place], [address], 05/29/2024 13:38:28 ciproflox acin 750 mg tablet 2023 024 pavel Rafa [id number], [address] [facility], [place], [address], 11/29/2023 16:05:50 clotrimaz ole-betam ethasone 1 %-0.05 % topical cream 2023 024 DEEPTHI [id number], [address] [facility], [place], [address], 11/03/2023 12:17:27 Patient TargetsNo targets recorded. Patient [...] Abnormal Flag Note LastModifiedBy Organization Detail LastModifiedTime 02/01/2007/29/2022 imagi ng/di agnos tic resul t No [...] Recorded Time Dizzines s and giddines s 979172771 Active 2016 Dizzines s and giddines s; Note: Date Diagnose d: 7 12:36 PM (R42) Not Available [facility] 4 02:53:47 Otitis externa of bilatera l ears 61792382057 57142 Completed 201601/13/2024 Other otitis externa, bilatera l; Note: Date Diagnose d: 7 12:35 PM (H60.8X3 ) Not Available [facility] 4 02:53:47 Mixed 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, bilatera l 152100779 Active 2016 Mixed 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, bilatera l; Note: Date Diagnose d: 7 11:53 AM (H90.6) Not Available [facility] 4 02:53:43 Bilatera l disorder of Eustachi an tubes 90908326742 77229 Active 2016 Other specifie d disorder s of Eustachi an tube, bilatera l; Note: Date Diagnose d: 7 12:35 PM (H69.83) Not Available [facility] 4 02:53:45 Bilatera l earache 725462321 Active 2016 Otalgia, bilatera l; Note: Date Diagnose d: 04/12/20 17 3:29 PM (H92.03) Not Available [facility] 4 02:53:46 Nasal congesti on 11309844 Active 2016 Nasal congesti on; Note: Date Diagnose d: 04/12/20 17 3:28 PM (R09.81) Not Available [facility] 4 02:53:46 Eczema NOS Active 2016 Eczema NOS; Note: Date Diagnose d: 05/12/20 17 4:20 PM (L30.9) Not Available [facility] 4 02:53:42 Dysphagi a 80756248 Active 2016 Dysphagi a, unspecif ied; Note: Date Diagnose d: 05/12/20 17 4:27 PM (R13.10) Not Available [facility] 4 02:53:43 Chronic pharyngi tis 968628 Active 2016 Chronic sore throat; Note: Date Diagnose d: 05/12/20 17 4:24 PM (J31.2) Not Available [facility] 4 02:53:43 Headache 48369244 Active 2018 Facial pain NOS; Note: Date Diagnose d: 9 2:54 PM (R51) Not Available [facility] 4 02:53:44 Allergic rhinitis 03880512 Active 2018 Other allergic rhinitis ; Note: Date Diagnose d: 9 2:55 PM (J30.89) Not [facility] 4 02:53:47 Diffuse otitis externa 54480691 Active 2020 Diffuse otitis externa, left ear; Note: Date Diagnose d: 09/18/2020 3:45 PM (H60.312 ) Not Available [facility] 4 02:53:46 Bilatera l tympanic membrane central perforat ion 88699793378 81440 Active 2020 Central perforat ion of tympanic membrane , bilatera l; Note: Date Diagnose d: 1 3:12 PM (H72.02) Not Available [facility] 4 02:53:44 Otalgia of left ear 5021765210 Active 2020 Otalgia, left ear; Note: Date Diagnose d: 03/27/20 10:35 AM (H92.02) Not Available [facility] 4 02:53:44 Pain of left temporom andibula r joint 20055358258 321688 Active 2020 Arthralg ia of left temporom andibula r joint; Note: Date Diagnose d: 03/27/20 10:35 AM (M26.622 ) Not Available [facility] 4 02:53:45 Otalgia 00292102 Active 2020 Otalgia; Note: Date Diagnose d: 10/15/20 21 10:33 AM (388.70) Not Available [facility] 4 02:53:44 Impacted cerumen of bilatera l ears 04588618573 71157 Active 2022 Impacted cerumen, bilatera l; Note: Date Diagnose d: 3 3:33 PM (H61.23) Not Available [facility] 4 02:53:48 Otorrhea of left ear 77873005828 37735 Active 2023 Otorrhea , left ear; Note: Date Diagnose d: 09/14/2023 3:39 PM (H92.12) Not Available 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 2023 [place]a acosta, [place] - [facility] 4 12:09:27 Chronic mycotic otitis externa 539314244 Active 2023 Luca acosta, [place] - [facility] 4 12:09:27 Candidal otitis externa 08575894 Active 2023 [place]a acosta, [place] - [facility] 4 12:09:27 Bilatera l perforat ion of tympanic membrane s 22676184064 59125 Active 2023 [place]a acosta, [place] - [facility] 4 12:10:39 Cellulit is of face 130377182 Active 2023 KUSUM BARTLETT PA-C [address] [place] [address],[place] [address], [place], [id number] , [facility] - [facility] 4 13:49:33 Problem Notes None recorded. Procedures Surgical History Date Name Laterality Status Provider Name and Address Organization Details Recorded Time 02/02/20 25 Cerumen removal with microscope bilateral completed Tobin Escoto, [address] [place] [address],[address], [address], [facility] - [facility] 02/01/2025 08:52:02 05/29/20 24 Cerumen removal with microscope bilateral completed RAYNA GAY MD [address] [facility],[address], [address], [facility] - [facility] 05/29/2024 13:41:27 11/11/19 24 Cerumen removal without microscope right completed KUSUM BARTLETT PA-C [address] [facility],[address], [address], [facility] - [facility] 11/11/2023 13:46:54 Carpal tunnel surgery completed Sunil Bermeo [facility] 11/03/2023 11:50:12 cholecystectomy completed Sunil Bermeo [facility] 11/03/2023 11:50:21 Imaging Results None recorded. Procedure Notes None recorded. Medical Equipment None Reported. Allergies Allergen ID Allergen Name Allergen Category Reaction Reaction Severity Criticality Documentation Date Start Date Code Code System Note Provider Name and Address Organization Details Recorded Time 80801 celecoxib medicatio n other Not available Not available 10/25/2023 43061 7 RxNorm React ion: unkno wn, unspe cifie d;; Not Available [facility] 4 00:49:36 53300 pregabali n medicatio n other Not available Not available 10/25/2023 51554 2 RxNorm React ion: unkno wn, unspe cifie d;; Not Available [facility] 4 00:49:49 Medications Name Sig Start Date Stop Date Status Note LastModified by Organization Details LastModified Time amoxicill in 500 mg capsule TOME 1 C PSULA ORALLY EVERY 12 HOURS FOR 7 DAYS 11/28 completed Not Available Not Available Not Available neomycin- polymyxin -hydrocor t 3.5 mg/mL-10, 000 unit/mL-1 % ear solution 01/10 completed Medicati on ID: [id number] D uration Value: 10 Reason: () Brand [...] mg capsule 01/10 completed Medicati on ID: [id number] D uration Value: 30 Reason: () Brand Name: acitreti n Send Method: E-Prescr ibed Sub s Allowed: subs OK Medic ationGen ericName : acitreti n Not Available Not Available Not Available ibuprofen 800 mg tablet active Not Available Not Available Not Available fluconazo le 150 mg tablet PLEASE SEE ATTACHED FOR DETAILED DIRECTIO NS active Not Available Not Available No t Available Senna Lax 8.6 mg tablet 2016 active Medicati on ID: [id number] D uration Value: 30 Brand Name: Senna [...] affected area 2016 active Medicati on ID: [id number] D uration Value: 14 Prescri bed By [...] mg tablet 01/10 completed Medicati on ID: [id number] D uration Value: 30 Reason: () Brand Name: Fiber Laxative (ca polycarb o) Send Method: E-Prescr ibed Sub s Allowed: subs OK Speci al Instruct ion: TAKE 1-2 CAPSULES TWICE A DAY ORALLY 30 DAYS Med icationG enericNa me: Fiber Laxative (ca polycarb o) Not Available Not Available Not Available sumatript an 25 mg tablet 2018 active Medicati on ID: [id number] D uration Value: 30 Brand Name: sumatrip [...] mg tablet 01/10 completed Medicati on ID: [id number] D uration Value: 9 Reason: () Brand [...] Not Available Not Available No t Available tramadol 50 mg tablet active Not Available Not Available Not Available acetamino phen ER 650 mg tablet,ex tended release active Not Available Not Available Not Available ofloxacin 0.3 % ear drops Instill 5 drop into left ear twice a day active Medicati on ID: [id number] D uration Value: 10 Prescri bed By Name: SESAR Deluca nd Name: ofloxaci n Send Method: E-Prescr ibed Sub s Allowed: subs OK Medic ationGen ericName : ofloxaci n Not Available Not Available Not Available Gas Relief (simethic one) 125 mg capsule 01/10 completed Medicati on ID: [id number] D uration Value: 30 Reason: () Brand Name: Gas Relief S end Method: E-Prescr ibed Sub s Allowed: subs OK Speci al Instruct ion: TOME FATMATA CAPSULA POR VIA ORAL DOS VECES AL CAT CUANDO SEA NECESARI O Medica tionGene ricName: Gas Relief Not Available Not Available Not Available Vitamin C 1,000 mg tablet 2016 active Medicati on ID: [id number] D uration Value: 30 Brand Name: Vitamin [...] No t Available baclofen 10 mg tablet 02/01 completed Medicati on ID: [id number] B rand Name: baclofen Send Method: E-Prescr ibed Sub s Allowed: subs OK Speci al Instruct ion: TOME FATMATA TABLETA POR V A ORAL CADA OCHO HORAS PARA EL ESPASMO MUSCULAR CUANDO SEA NECESARI O Medica tionGene ricName: baclofen Not Available Not Available Not Available benzonata te 100 mg capsule 01/10 completed Medicati on ID: [id number] D uration Value: 10 Reason: () Brand Name: benzonat ate Send Method: E-Prescr ibed Sub s Allowed: subs OK Medic ationGen ericName : benzonat ate Not Available Not Available Not Available gemfibroz il 600 mg tablet 2018 active Medicati on ID: [id number] D uration Value: 30 Brand Name: gemfibro [...] iron) tablet 2020 active Medicati on ID: [id number] B rand Name: ferrous sulfate Send Method: [...] cream BRING UNOPENED TUBE TO APPOINTM ENT. active Not Available Not Available No t Available polymyxin B sulfate 10,000 unit-trim ethoprim 1 mg/mL eye drops 01/10 completed Medicati on ID: [id number] D uration Value: 10 Reason: () Brand [...] solution Apply 11/02 completed Medicati on ID: [id number] D uration Value: 14 Prescri bed By Name: SESAR Roman nd Name: clotrima zole Sen d Method: E-Prescr ibed Sub s Allowed: subs OK Speci al Instruct ion: 4 drops to both ears BID x 2 weeks Me dication GenericN luciano: clotrima zole Med ication ID: [id number] D uration Value: 14 Prescri bed By [...] mg capsule 2016 active Medicati on ID: [id number] D uration Value: 30 Brand Name: gabapent in Send Method: E-Prescr ibed Sub s Allowed: subs OK Speci al Instruct ion: TOME FATMATA CAPSULA TODOS LOS BAKER Med icationG enericNa me: gabapent in Not Available Not Available Not Available omeprazol e 20 mg capsule,d elayed release 2016 active Medicati on ID: [id number] D uration Value: 30 Brand Name: omeprazo [...] Available loratadin e 10 mg tablet TOME 1 TABLETA POR V A ORAL TODOS LOS D active Not Available Not Available No t Available amoxicill in 875 mg-potass ium clavulana te 125 mg tablet TOME 1 TABLETA POR V A ORAL DOS VECES AL D A POR 10 D 02/01 completed Not Available Not Available Not Available Vitamin D3 25 mcg (1,000 unit) capsule 2016 active Medicati on ID: [id number] D uration Value: 30 Brand Name: Vitamin [...] as directed 2021 active Medicati on ID: [id number] D uration Value: 14 Brand Name: Ciprodex Send Method: E-Prescr ibed Sub s Allowed: subs OK Speci al Instruct ion: x 14 days Med icationG enericNa me: Ciprodex Not Available Not Available Not Available rosuvasta tin 20 mg tablet 01/10 completed Medicati on ID: [id number] D uration Value: 30 Reason: () Brand Name: rosuvast atin Sen d Method: E-Prescr ibed Sub s Allowed: subs OK Speci al Instruct ion: TOME FATMATA TABLETA TODOS LOS BAKER [facility]: rosuvast atin Not Available Not Available Not Available cranberry extract 500 mg capsule 2016 active Medicati on ID: [id number] D uration Value: 30 Brand Name: cranberr y extract Send Method: E-Prescr ibed Sub s Allowed: subs OK Speci al Instruct ion: TOME FATMATA CAPSULA POR VIA ORAL TODOS LOS BAKER SCOTT LO INDICADO Medicat ionGener icName: cranberr y extract Not Available Not Available Not Available Fiber Therapy (methylce llulose) 500 mg tablet 01/10 completed Medicati on ID: [id number] D uration Value: 30 Reason: () Brand [...] elayed release 01/10 completed Medicati on ID: [id number] D uration Value: 30 Reason: () Brand Name: duloxeti ne Send Method: E-Prescr ibed Sub s Allowed: subs OK Speci al Instruct ion: TOME FATMATA CAPSULA POR VIA ORAL TODOS LOS BAKER Med icationG enericNa me: duloxeti ne Not Available Not Available Not Available ProAir HFA 90 mcg/actua tion aerosol inhaler 2 puff 2018 active Medicati on ID: [id number] D uration Value: 30 Brand Name: ProAir [...] aerosol spray 2018 active Medicati on ID: [id number] D uration Value: 30 Brand Name: QNASL [...] both nostrils 2018 active Medicati on ID: [id number] D uration Value: 120 Prescri bed By Name: Reynaldo barger MD Brand Name: Flonase Allergy Relief S end Method: E-Prescr ibed Sub s Allowed: subs OK Medic ationGen ericName : Flonase Allergy Relief Not Available Not Available Not Available Trulance 3 mg tablet 2018 active Medicati on ID: [id number] D uration Value: 30 Brand Name: Trulance [...] Updated DateTime 11/11/2023 154.94 cm 28.2 kg/m2 55745.26 g Sunil Bermeo [place] - [facility] 11/11/2023 13:07:26 Date Recorded Body height Body mass index (BMI) Body weight Provider Name and Address Organization Details Last Updated DateTime 02/01/2025 154.94 cm 29.7 kg/m2 53497 g LISBET HORN [facility] 02/01/2025 10:28:17 Date Recorded Body height Body mass index (BMI) Body weight Provider Name and Address Organization Details Last Updated DateTime 05/29/2024 154.94 cm 28.3 kg/m2 06316.86 g Norm Burgess [facility] 05/29/2024 13:30:36 Social History None recorded. Functional Status None recorded. Mental Status None recorded. Family History Nothing Reported. Medical History No medical history recorded. Gynecological HistoryNo gynecological history recorded. Obstetrics History GPAL:G 0 P 0 0 0 0 Past Encounters Encounter ID Performer Location Encounter Start Date Encounter Closed Date Diagnosis/Indication Diagnosis SNOMED-CT Code Diagnosis ICD10 Code Diagnosis IMO Codes Diagnosis Note [id number] LUCA VARGAS PA-C [facility] [address] [address] 11/03/2023 11:38:00 11/03/2023 12:34:18 Chronic mycotic otitis externa 300723948 H60.399 Previously found to be fungal via culture Bilateral perforation of tympanic membranes 4699642718 014815 H72.93 [id number] KUSUM BARTLETT PA-C [facility] [address] [place] [address] 11/11/2023 12:58:21 11/11/2023 13:33:03 Bilateral disorder of Eustachian tubes 9253642716 034576 H69.83 Bilateral perforation of tympanic membranes 8639533933 208395 H72.93 Cellulitis of face 2001 L03.211 [id number] RAYNA GAY MD [facility] [address] [address] 11/29/2023 15:24:29 11/29/2023 16:27:24 Bilateral disorder of Eustachian tubes 5961844685 927354 H69.83 Bilateral tympanic membrane central perforation 3481401233 593279 H72.03 Mixed cond uctive and sensorineural hearing loss, bilateral 334535914 H90.6 [id number] RAYNA GAY MD [facility] [address] [address] 05/29/2024 13:13:55 05/29/2024 13:43:03 Bilateral disorder of Eustachian tubes 7273143919 515709 H69.83 Bilateral tympanic membrane central perforation 1181608078 356619 H72.03 Mixed cond uctive and sensorineural hearing loss, bilateral 358774650 H90.6 Dermal mycosis 21297326 B36.9 The skin of the bilateral external [...] . Impacted c erumen of bilateral ears 0062340470 391396 H61.23 [id number] Tobin Escoto DO [facility] [address] [address] 02/01/2025 10:12:35 02/01/2025 10:52:35 Bilateral disorder of Eustachian tubes 6305257632 022193 H69.83 Bilateral tympanic membrane central perforation 3619247107 476289 H72.03 Mixed cond uctive and sensorineural hearing loss, bilateral 747596262 H90.6 Dermal mycosis 08937171 B36.9 Impacted c erumen of bilateral ears 2669659010 395722 H61.23 Health Concerns Section Related Observation LastModified by Organization Detai ls LastModified Time None Recorded Concern Status LastModified by Organization Details LastModified Time None Recorded Advance Directives Directive None Recorded Payers Insurance Date Sequence Insurance Name Policy Number Policy Munguia Covered Member ID Munguia Member ID Guarantor Name 01/22/2025 1 [facility] - HEALTH NET PLAN (MEDICAID HMO) [place] Raquel Gasria [id number] Raquel Duque 03/15/2025 1 [facility] - DUAL ELIGIBLE (MEDICARE REPLACEMENT/A DVANTAGE - HMO) Raquel Duque [id number] Raquel Duque 03/15/2025 1 [facility] - DOS ON OR AFTER 2022 - MEDICARE ADVANTAGE [place] (MEDICARE REPLACEMENT/A DVANTAGE - PPO) Raquel Duque [id number] Raquel Duque 03/15/2025 1 [facility] (MEDICARE REPLACEMENT/A DVANTAGE - HMO) Raquel Duque [id number] Raquel Duque 03/15/2025 2 [place] Raquel Duque [id number] Raquel Duque Notes Date Note Type Note Provider Name and Address Organization Details Recorded Time 11/03/2023 text/html ROS as noted in the HPI 62 year old female presents with family member, who provides interpretation services and family declined professional technical service specialist, for evaluation of the left ear. Patient reports she has not taken any drops since early September. The ear is very itchy and there is non-pulsatile tinnitus. No otalgia. There is a little dampness but no elmer otorrhea. Wearing her hearing aids every day. When she removes them she cleans with water and soap and a brush. Luca acosta [place] - [facility] 11/03/2023 15:33:16 11/11/2023 text/html ROS as noted in the HPI 62-year-old female presents for reevaluation of left otitis externa. [...] still has discomfort particularly behind the ear. TOBIN GODOY MD [address] [facility],[address], [address], [facility] - [facility] 11/11/2023 17:21:42 11/29/2023 text/html 63-year-old female with chronic history of ear disease who has been a patient in the office since 2017. She comes in today accompanied by her daughter who is helping to translate [place]ib[place]ian. Patient recently had prolonged episode of left-sided otorrhea which was treated with a combination of antifungal and antibacterial's. Patient notes no further left-sided ear discharge. Patient did have some bleeding during treatment of the left ear which has since resolved. Patient currently using binaural amplification dispensed at [facility] audiology. She has bilateral mixed hearing loss. RAYNA GAY MD [address] [facility],[address], [address], [facility] 11/29/2023 17:21:59 05/29/2024 text/html 63-year-old female with chronic history of ear disease who has been a patient in the office since 2017. She has a 5% perforation of the right tympanic membrane and a 20% perforation of the left tympanic membrane which we are observing rather than repairing due to underlying eustachian tube dysfunction. She comes in today accompanied by her daughter who is helping to translate [place]ian. Patient currently using binaural amplification dispensed at [facility]. She has bilateral mixed hearing loss. Patient comes in today for preventative ear cleaning. Patient comes in today accompanied by her daughter. She is helping to translate [place]ian. Patient reports itchiness in her ears. RAYNA GAY MD [address] [facility],[address], [address], [facility] - [facility] 05/29/2024 13:42:11 02/01/2025 text/html ROS as noted in the HPI Interval history: Right otorrhea noted at her new hearing facility. Here for medical clearance. Notes some right tinnitus. Previously (Dr Gay): 63-year-old female with chronic history of ear disease who has been a patient in the office since 2017. She has a 5% perforation of the right tympanic membrane and a 20% perforation of the left tympanic membrane which we are observing rather than repairing due to underlying eustachian tube dysfunction. She comes in today accompanied by her daughter who is helping to translate [place]ian. Patient currently using binaural amplification dispensed at [facility]iology Tobin Escoto, DO [address] [facility],[place] [address], [place], [address], [facility] - [facility] 02/01/2025 10:47:43 OBGyn Episode No OBEpisode recorded.
--- OUTSIDE RECORDS SUMMARY | 2025-04-02 17:33 | XMS_ITS | Encounter Summary ---
Author Organization [facility] Address [address] [place] [address] Care Team Providers Care Immunopathologist Name Role Phone Gretel So MD Primary Care Provider Mario Lucas Primary Care Provider Kristie Mejia, Pcp Primary Care Provider Julia Eid MD Primary Care Provider Lola mares Encounter Details Date Type Department Care Team Description 05/23/2017 Transfer Records Medical Records [address] [place] [id number] Abstract, Provider Social History Tobacco Use Types [...] on filedocumented in this encounter Care Teams Immunopathologist Relationship Specialty Start Date End Date Gretel So MD PCP - General Internal Medicine 05/17/17 08/31/17 Mario Torres PCP - General Internal Medicine 09/01/17 09/29/17 Jackie, Pcp PCP - General Internal Medicine 09/30/17 08/01/23 Julia Oviedo MD PCP - General Internal Medicine 08/02/23 documented as of this encounter
--- OUTSIDE RECORDS SUMMARY | 2025-04-02 17:33 | XMS_ITS | Encounter Summary ---
Author Organization [facility] Address [address] [place] [address] Care Team Providers Care Transplant Immunologist Name Role Phone Community, Pcp Primary Care Provider Julia Eid MD Primary Care Provider Lola mares Reason for Visit * Reason Onset Date Comments Testing 08/25/2018 sleep study Encounter Details Date Type Department Care Team Description 08/25/2018 Telephone Pulmonology - [place] [address] [facility] [address] [place] [address] Vijay Patton PA-C [address] [facility] [address] [place] [address] Testing (sleep study) Social History [...] on filedocumented in this encounter Care Teams Transplant Immunologist Relationship Specialty Start Date End Date Community, Pcp PCP - General Internal Medicine 09/30/17 08/01/23 Julia Oviedo MD PCP - General Internal Medicine 08/02/23 documented as of this encounter
--- OUTSIDE RECORDS SUMMARY | 2025-04-02 17:33 | XMS_ITS | Encounter Summary ---
Author Organization [facility] Address [address] [place] [address] Care Team Providers Care Winder Operator Name Role Phone Community, Pcp Primary Care Provider Julia Eid MD Primary Care Provider Lola mares Reason for Visit * Reason Onset Date Comments REFERRAL 08/25/2018 Encounter Details Date Type Department Care Team Description 08/25/2018 Telephone [facility] [address] [place] [address] [facility] [address] [place] [address] REFERRAL Social History Tobacco Use Types Packs/Day [...] Permission given to call Mariama betancur at [phone] or Yael at [phone] concerning the sleep study. Pt only speaks romanian. documented in this encounter Plan of Treatment Not on file documented as of this encounter Visit Diagnoses Not on filedocumented in this encounter Care Teams Winder Operator Relationship Specialty Start Date End Date [facility], Pcp PCP - General Internal Medicine 09/30/17 08/01/23 Julia Oviedo MD PCP - General Internal Medicine 08/02/23 documented as of this encounter
--- OUTSIDE RECORDS SUMMARY | 2025-04-02 17:33 | XMS_ITS | Encounter Summary ---
Author Organization [facility] Address [address] [place] [address] Care Team Providers Care Head Wood Grinder Name Role Phone Community, Pcp Primary Care Provider Julia Eid MD Primary Care Provider Lola mares Encounter Details Date Type Department Care Team Description 10/26/2018 Release of Information Medical Records [address] [place] [id number] Abstract, Provider Social History Tobacco Use Types [...] on filedocumented in this encounter Care Teams Head Wood Grinder Relationship Specialty Start Date End Date Community, Pcp PCP - General Internal Medicine 09/30/17 08/01/23 Julia Oviedo MD PCP - General Internal Medicine 08/02/23 documented as of this encounter
--- OUTSIDE RECORDS SUMMARY | 2025-04-02 17:33 | XMS_ITS | Clinical Summary ---
Author Organization 175 [facility] Address [address] [place] [address] Phone Care Team Providers Care Education Site Manager Name Role Phone Julia Oviedo MD Primary Care Provider Allergies Active Allergy Reactions Criticality Noted Date Comments Celecoxib Other 10/07/2016 LIVER INFLAMMATION Dicyclomine Other 10/07/2016 VAGINAL RASH Griseofulvin Rash 10/23/2024 Griseofulvin Microsize Other 10/07/2016 IRRITATION OF COLON Morphine Other 10/03/2023 CHEST PAIN Nortriptyline Dizziness 10/07/2016 Octopus Hives 10/23/2024 [place] Other 10/23/2024 Mouth blisters Other 10/07/2016 Oxycodone [...] 240 g 1 5 03/30/20 25 Active Problems Problem Noted Date Diagnosed Date Other bursal cyst, right ankle and foot 05/15/20 24 PLMD (periodic limb movement disorder) 9 Allergic rhinitis 07/08/2017 Asthma 07/08/2017 Fatty liver 07/08/2017 Fibroma 07/08/2017 GERD (gastroesophageal reflux disease) 01/26/201 8 Hiatal hernia 07/08/2017 Hyperlipidemia 07/08/2017 Orthostatic [...] PM EDT Office Visit Orthopedic Surgery - [place] [address] [place] [phone] Vijay Powell, DPM Dejon's deformity of right heel (Primary Dx); Post-operative state; Tendonitis, Achilles, right; Dermatophytosis of nail; Tinea pedis of both feet from Last 3 Months Surgical History Surgery [...] PM EST Office Visit Orthopedic Surgery - [place] [address] [phone] Vijay Powell, DPAshely [address] [phone] Health Maintenance Due Date Last Done Comments Breast Cancer Screening 1960 Colorectal Cancer Screening: Colonoscopy 1960 Pneumococcal Vaccine: 50+ Years (1 of 2 - PCV) 11/13/1978 Cervical Cancer Screening: P ap Smear 11/13/1980 RSV Immunization Adult Patients (1 - Risk 50-74 years 1-dose series) 11/13/2009 Zoster Vaccines (1 of 2) 11/13/2009 Hepatitis B Vaccines (3 of 3 - 19+ 3-dose series) 07/29/2016 02/26/2016, 01/27/2016 Cholesterol Screening (Lipid Panel) 01/10/2024 Osteoporosis Screening (Bone Density Screening) 01/10/2024 [...] Routine 01/29/2025 2:15 PM EDT Post-operative state HEPATITIS C SCREENING Routine 10/07/2016 from Last 3 Months or Most Recently Relevant to Health Maintenance Results * XR Foot 3+ Views Right (01/29/2025 2:15 PM EDT) Anatomical Region Laterality Modality Lower Extremities, Foot Right Computed Radiography Narrative 01/29/2025 5:53 PM EDT Right foot 3 views Significant retrocalcaneal spur noted Vijay Powell DPAshely IMG XR PROCEDURES Final R esult * Hepatitis C Screening (10/07/2016) Hepatitis C Screening abstracted Historical Provider MD HEALTH MAINTENANCE Final Result from Last 3 Months or Most Recently Relevant to Health Maintenance Insurance [address] [place] [address] MEDICAID - [place] Care Teams Education Site Manager Relationship Specialty Start Date End Date Julia Oviedo MD [address] [facility] , [address] [facility] D[facility] [place], [place] PCP - General 08/02/23
--- OUTSIDE RECORDS SUMMARY | 2025-04-02 17:33 | XMS_ITS | Encounter Summary ---
Author Organization [facility] Address [address] [place] [address] Care Team Providers Care Metal Fabricating Inspector Name Role Phone Community, Pcp Primary Care Provider Julia Eid MD Primary Care Provider Lola mares Encounter Details Date Type Department Care Team Description 03/16/2018 Speech Pathology Teacher Report Medical Records [address] [place] [address] Reynaldo Peralta Social History Tobacco Use Types [...] on filedocumented in this encounter Care Teams Metal Fabricating Inspector Relationship Specialty Start Date End Date Community, Pcp PCP - General Internal Medicine 09/30/17 08/01/23 Julia Oviedo MD PCP - General Internal Medicine 08/02/23 documented as of this encounter
--- OUTSIDE RECORDS SUMMARY | 2025-04-02 17:33 | XMS_ITS | Encounter Summary ---
Author Organization [facility] Address [address] [place] [address] Care Team Providers Care Assembler Motor Vehicle Name Role Phone Community, Pcp Primary Care Provider Gretel Garay MD Primary Care Provider Mario Lucas Primary Care Provider Kristie Mejia, Pcp Primary Care Provider Julia Eid MD Primary Care Provider Lola mares Encounter Details Date Type Department Care Team Description 10/07/2016 Release of Information Medical Records [address] [place] [id number] Abstract, Provider Social History Tobacco Use Types Packs/Day Years Used Date Smoking Tobacco: Never Assessed Sex Assigned at Date Recorded Not on file documented as of this encounter Plan of Treatment Not on file documented as of this encounter Visit Diagnoses Not on filedocumented in this encounter Care Teams Assembler Motor Vehicle Relationship Specialty Start Date End Date Community, [...]
== END 2025-04-02 14:07 | disposition home or self-care (01) ==
LOC: HO.HMCH 13:26
PROVIDERS: PCP Internal Medicine; Visit Provider Internal Medicine
DX: I87.2 Venous insufficiency (chronic) (peripheral) (principal); D50.9 Iron deficiency anemia, unspecified; M25.511 Pain in right shoulder; M25.512 Pain in left shoulder; M25.551 Pain in right hip; M25.552 Pain in left hip; G47.33 Obstructive sleep apnea (adult) (pediatric); L30.9 Dermatitis, unspecified; F32.0 Major depressive disorder, single episode, mild; R31.29 Other microscopic hematuria

== ENCOUNTER 2025-04-02 13:25 | Outpatient (REF) | payer OTHER, SELFPAY ==
--- NOTE | ~2025-04-02 | XR_ITS ---
EXAMINATION: XR BILATERAL HIPS WITH AP PELVIS CLINICAL INFORMATION: M25.552 - Pain in left hip, pain right hip COMPARISON: Correlated to CT right hip dated January 26, 2019. TECHNIQUE: AP and oblique views both hips FINDINGS: No acute cortical disruption or malalignment. Mild sclerosis along the articular surface of the acetabulum. Slight asymmetric joint space narrowing both hips. No lytic or blastic lesions. No metallic or radiopaque foreign body. No subcutaneous emphysema. XR/XR hips DIA min 3V IMPRESSION: Mild osteoarthrosis/osteoarthritis. No acute fracture or dislocation. Electronically signed by: Lonny Rivera MD 04/02/2025 03:22 PM EDT
--- NOTE | ~2025-04-02 | XR_ITS ---
EXAMINATION: XR SHOULDER, BILATERALLY CLINICAL INFORMATION: M25.512 - Pain in left shoulder, pian right shoulder COMPARISON: Left shoulder x-ray dated April 07, 2020. Correlated to chest x-ray dated March 28, 2023 TECHNIQUE: AP external rotation, Grashey, scapular Y, and axillary views of both shoulders. FINDINGS: Degenerative changes in the acromioclavicular joints without acute cortical disruption or malalignment. No lytic or blastic lesions. No metallic or radiopaque foreign body. No soft tissue calcifications. XR/XR Shoulder Eduar min 2V IMPRESSION: Mild degenerative changes without acute fracture or dislocation. Electronically signed by: Lonny Rivera MD 04/02/2025 03:24 PM EDT
--- NOTE | ~2025-04-02 | XR_ITS ---
EXAMINATION: XR TIBIA AND FIBULA, LEFT CLINICAL INFORMATION: M89.8X6 - Other specified disorders of bone, lower leg COMPARISON: None available. TECHNIQUE: AP and lateral views of the left tibia and fibula were obtained. FINDINGS: Bone alignment is normal. No fracture or dislocation. Bony excrescence projects off the medial proximal tibial metaphysis suggestive of a bony exostosis. Joint spaces are normal. Partially visualized calcaneal spurs. Soft tissues otherwise normal. XR/XR tibia fibula LT 2V IMPRESSION: Medial proximal tibial bony exostosis. Partially visualized calcaneal spurs. Electronically signed by: Alecia Osorio MD 04/02/2025 03:33 PM EDT
[2025-04-02 14:34] LABS: MANUAL DIFF FLAG NO
[2025-04-02 14:57] LABS: Hematocrit 35.0 % (37.0-47.0); Hemoglobin 11.4 g/dl (12.0-16.0); Imm Gran Abs Auto 0.18 X10*3/uL (0.00-0.03); Imm Gran Pct Auto 2.6 % (0.0-0.4); Lymphocytes Absolute Auto 2.3 X10*3/uL (1.2-4.9); Mean Corpuscular HGB Conc 32.6 g/dl (31.0-35.0); Mean Corpuscular Hemoglobin 30.0 pg (27.0-33.0); Mean Corpuscular Volume 92.1 fL (80.0-98.0); NRBC Abs Auto 0.000 X10*3/uL (0.0-0.012); NRBC Pct Auto 0.0 /100WBC (0.0-0.2); Platelet Count 245 X10*3/uL (160-400); Red Blood Count 3.80 X10*6/uL (4.20-5.50); White Blood Count 6.9 X10*3/uL (4.8-10.8)
[2025-04-02 15:28] LABS: Iron 79 mcg/dL (30-160); Percent Iron Saturation 33 % (15-50); Total Iron Binding Capacity 236 mcg/dL (228-428); Unsaturated Iron Binding 157 ug/dL
== END 2025-04-02 13:26 | disposition home or self-care (01) ==
LOC: HO.XRAY 13:25
PROVIDERS: PCP Internal Medicine; Visit Provider Internal Medicine
DX: M89.8X6 Other specified disorders of bone, lower leg (principal); M25.552 Pain in left hip; M25.551 Pain in right hip; M25.512 Pain in left shoulder; M25.511 Pain in right shoulder; D64.9 Anemia, unspecified; I87.2 Venous insufficiency (chronic) (peripheral); D50.9 Iron deficiency anemia, unspecified; G47.33 Obstructive sleep apnea (adult) (pediatric); L30.9 Dermatitis, unspecified; F32.0 Major depressive disorder, single episode, mild; R31.29 Other microscopic hematuria; Z79.82 Long term (current) use of aspirin; Z79.899 Other long term (current) drug therapy
CPT/HCPCS: 36415; 73030; 73522; 73590; 83540; 85025; 96127; 99212

== ENCOUNTER → 2025-04-02 14:42 | Outpatient (BNV) | payer OTHER, MEDICAID, SELFPAY | PROVIDERS: PCP Internal Medicine; Visit Provider Radiology Diagnostic Radiology | DX: M25.551 Pain in right hip (principal); M25.552 Pain in left hip; M19.011 Primary osteoarthritis, right shoulder; M19.012 Primary osteoarthritis, left shoulder; M89.8X6 Other specified disorders of bone, lower leg | CPT/HCPCS: 73030; 73522; 73590 ==

== ENCOUNTER 2025-04-03 14:30 | Outpatient (REF) | payer OTHER, SELFPAY | END 2025-04-03 14:31 | disposition home or self-care (01) | LOC: HO.LAB 14:30 | PROVIDERS: PCP Internal Medicine; Visit Provider Nurse Practitioner Family | DX: R31.29 Other microscopic hematuria (principal); Z13.89 Encounter for screening for other disorder | CPT/HCPCS: 81003; 88112; 99212 ==

== ENCOUNTER 2025-04-03 14:30 | Outpatient (AMB) | payer OTHER, MEDICAID, SELFPAY ==
--- NOTE | 2025-04-03 14:42 | A.OFFVIS_ITS ---
Intake Visit Reasons: 6M follow up Intake Note: Patient is present for 6M F/U Urology Medication:VITAMIN C Antibiotic Allergy:NONE Blood Thinner:ASPIRIN Clay Structure Builder And Servicer Required: No Allergies griseofulvin (From Candie-PEG (ultramicrosize)) Allergy (Intermediate, Verified 04/03/25 15:10) Rash octopus Allergy (Intermediate, Verified 04/03/25 15:10) Hives pregabalin (From Lyrica) Allergy (Intermediate, Verified 04/03/25 15:10) LEethargy, dizziness celecoxib (From Celebrex) Adverse Reaction (Intermediate, Verified 04/03/25 15:10) Problems with Liver dicyclomine Adverse Reaction (Mild, Verified 04/03/25 15:10) stomach upset oxycodone (From Percocet) Adverse Reaction (Mild, Verified 04/03/25 15:10) Lethargy morphine Adverse Reaction (Verified 04/03/25 15:10) Unknown MANDARIN ORANGES Allergy (Severe, Uncoded 04/03/25 15:10) Lip Swelling, Hives PARMELEX Allergy (Intermediate, Uncoded 04/03/25 15:10) Problems with Liver Medication List - Last Reconciled 04/03/25 by DAVID Downs-GRAY acetaminophen 1,000 mg PO BID PRN ascorbic acid (vitamin C) 1 g PO BID aspirin 81 mg PO DAILY betamethasone dipropionate 0.05% 0.05 appl topical DAILY cholecalciferol (vitamin D3) 1,250 mcg PO QWEEK 90 days coenzyme Q10 (H2Q CoQ10) 200 mg PO DAILY [cpap As directed] loratadine 10 mg PO DAILY 90 days magnesium gluconate 1,000 mg PO BID omega 5-pml-ojw-fish oil 1,000 (120-180) mg (Fish Oil) 1 cap PO DAILY tacrolimus 0.1% 0.1 appl topical DAILY HPI Comments Details: Raquel is a very pleasant 63-year-old Taiwanese-speaking female patient of Dr. Roper who was accompanied by her granddaughter at today's office visit. She has a past medical history of hematuria, fibromyalgia, gastroparesis, epigastric pain, allergic rhinitis, small bowel obstruction, H pylori, neuropathy, hearing loss, tendinitis, hyperlipidemia, carpal tunnel syndrome, arthritis, obstructive sleep apnea, iron deficiency anemia, and normocytic anemia. She presents to the office today for follow-up of her microscopic hematuria. In discussion with the patient today she reports to be doing and feeling well. She reports no bothersome urinary issues or concerns since her last office visit. Patient with a history of intermittent episodes of microscopic hematuria. Previous workup has included urine cytologies as noted and trended below: 12/04:Negative for high-grade urothelial carcinoma. She denies urinary urgency, urinary frequency, incontinence, nocturia, dysuria, foul smelling urine, changes to urinary stream, flank pain, fever, and or chills. She is happy with her current voiding parameters. In office urinalysis results reviewed with the patient today 2+ microscopic hematuria. She does report noting over the last 2 days she has been having vaginal pruritus. We discussed potential causes of intermittent microscopic hematuria verses persistent microscopic hematuria verses gross hematuria. I discussed potential causes of microscopic hematuria to include kidney stones, cancer in the urinary tract, kidney stone disease or inflammatory conditions of the urinary tract. Discussed at length further microscopic hematuria workup versus surveillance monitoring. Discussed risks and benefits of these interventions. She discusses her longstanding history of microscopic hematuria with previous normal in office cystoscopies. She otherwise offers no other issues or concerns at this time. [facility] Medical History Hematuria Furuncle of buttock Abdominal pain Postmenopausal Muscle cramps Physical exam Fibromyalgia Gastroparesis Midline thoracic back pain Epigastric pain Allergic rhinitis Ingrown toenail of right foot Small bowel obstruction Dyspnea on exertion Elevated AST (SGOT) Nausea RUQ pain H. pylori infection Obesity (BMI 30-39.9) Neuropathy Hearing loss Tendonitis Hyperlipidemia Carpal tunnel syndrome Arthritis Fibromyalgia GRAYSON (obstructive sleep apnea) Iron deficiency anemia Normocytic anemia Surgical History History of esophagogastroduodenoscopy (EGD) Hx of colonoscopy History of endoscopy History of laparoscopic cholecystectomy History of varicose vein stripping Family history of lipoma History of left breast biopsy History of History of temporal artery biopsy History of carpal tunnel repair Family History Father Heart disease Diabetes Hypertension Mother Diabetes Hypertension Arthritis Fibromyalgia Osteoporosis Sister Breast cancer Social History Household Members: Family Caregiver staying overnight: No Housing: Apartment Alcohol intake: never Patient Tobacco Use Status: Never used Tobacco e-Cigarette/Vaping Use: Never Used Second Hand Smoke Exposure: No service: No 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al status: disabled 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: rt hand Cognitive needs: No Hearing needs: Yes Vision needs: Yes Review of Systems Const Reports no additional complaints Eyes Reports no additional complaints ENT Reports no additional complaints Card Reports as per [facility] Resp Reports as per HPI GI Reports as per HPI Reports as per HPI Musc Reports as per HPI Neuro Reports no additional complaints Psych Reports as per HPI Endo Reports no additional complaints Sagar/Lymph Reports no additional complaints Aller/Immun Reports as per HPI Physical Exam Const General: cooperative, healthy appearing, comfortable, no acute distress, well developed, alert and awake Orientation/consciousness: patient oriented x3 Limitations: no limitations HEENT Head: Yes normal to inspection, Yes normocephalic and Yes atraumatic Ears: hearing grossly normal bilaterally Eyes General: appearance normal, both eyes and all related structures Neck Neck: Yes normal visual inspection and Yes trachea midline Chest Chest palpation & inspection: normal inspection of the chest Resp Effort & Inspection: normal respiratory effort and able to speak in complete sentences Cardio Rate: regular rate GI Inspection: Yes normal to inspection General: Yes no CVA tenderness Back/Spine/Pelvis Back: no CVA tenderness Skin General skin exam: no rashes or lesions noted Neuro General: patient oriented x3 Extrem General: Yes normal to inspection Psych Appearance: grossly normal and well kempt Mental Status: mental status grossly normal Speech and movement: Normal speech and movement present and Clear speech present Affect: normal affect Attitude: cooperative Thought process: Normal thought process present Thought content: Normal thought content present Insight: Fair insight present (Psych) Judgement: Fair judgement present (Psych) Assessment & Plan Assessment & Plan (1) Microscopic hematuria: Code(s): R31.29 - Other microscopic hematuria Category: Medical Plan In office urinalysis results reviewed with the patient today; as noted above; will send for urine cytology We discussed at length potential causes of intermittent microscopic hematuria. She currently denies any bothersome urinary issues or concerns. She reports be happy with current voiding parameters. We discussed further workup versus surveillance monitoring; risks and benefits of these interventions were discussed. All questions were answered. Will continue with surveillance monitoring Follow-up in 6 months; or sooner with any issues, concerns, and or questions. Orders: Orders AMB Urinalysis Automated Today Z13.9 - Encounter for screening, unspecified Urine Cytology Today R31.29 - Other microscopic hematuria Medications: New estradiol 0.01%(0.1mg/gram) (Estrace) Apply a pea-sized amount to the urethra daily x1 month and then 3 times per week thereafter 1 g vaginal 3XW 42.5 grams 1RF 30 days Patient Instructions: The patient had an opportunity to ask questions regarding the treatment plan. All questions were answered. Physical exam, labs, and imaging were discussed and reviewed in detail. As well as risks, benefits, and discussion of treatment choices. No major barriers to understanding were identified. The patient expressed understanding and agreement with the above treatment plan. The patient was made aware they should contact our office by phone for worsening of their current condition, the appearance of new symptoms, or with any questions or concerns. Compliance is encouraged with any medications and follow up testing that is ordered. It is a privilege to be allowed the opportunity to participate in? your urological care.? Again, if you have any questions or concerns If you have any questions or concerns please do not hesitate to contact me. The office is [phone]. This note is constructed using voice recognition software. While every effort has been made to ensure accuracy dust sampler errors may have been included. Yours sincerely, VICKY Downs Coding Level of Care Code Est Pt Level 4 (37256) Complex EM visit Add On G2211 Diagnoses Microscopic hematuria R31.29
--- OUTSIDE RECORDS SUMMARY | 2025-04-03 20:42 | XMS_ITS | Clinical Summary ---
Author Organization 175 [facility] Address [address] [place] [address] Phone Care Team Providers Care Network Admin Name Role Phone Julia Oviedo MD Primary Care Provider [phone] Allergies Active Allergy Reactions Criticality Noted Date Comments Celecoxib Other 10/07/2016 LIVER INFLAMMATION Dicyclomine Other 10/07/2016 VAGINAL RASH Griseofulvin Rash 10/23/2024 Griseofulvin Microsize Other 10/07/2016 IRRITATION OF COLON Morphine Other 10/03/2023 CHEST PAIN Nortriptyline Dizziness 10/07/2016 Octopus Hives 10/23/2024 [place] Other 10/23/2024 Mouth blisters Other 10/07/2016 Oxycodone [...] PM EDT Office Visit Orthopedic Surgery - [place] [address] [place] [phone] Vijay Powell, DPM Dejon's deformity of [...] PM EST Office Visit Orthopedic Surgery - [place] [address] [phone] Vijay Powell, DPAshely [address] [phone] Health Maintenance Due Date Last Done Comments [...] to Health Maintenance Insurance [address] [place] [address] MEDICAID - [place] Care Teams Network Admin Relationship Specialty Start Date End Date Julia Oviedo MD 2 [facility] , [address] [facility] D[facility]A: [facility] [place], [place] PCP - General 08/02/23
== END 2025-04-03 15:18 | disposition home or self-care (01) ==
PROVIDERS: PCP Internal Medicine; Visit Provider Nurse Practitioner Family
DX: Z13.9 Encounter for screening, unspecified (principal); R31.29 Other microscopic hematuria
CPT/HCPCS: 99214; G2211

== ENCOUNTER 2025-04-26 13:12 | Outpatient (AMB) | payer OTHER, SELFPAY ==
[2025-04-26 13:28] VITALS: BP 110/72; PULSE 67; O2SAT 97; BMI 29.2
--- NOTE | 2025-04-26 13:28 | A.OFFVIS_ITS ---
Vital Signs 04/26/25 13:28 Height 5 ft 1 in Weight 154 lb 6 oz BMI 29.2 BP 110/72 Blood Pressure Location Rt brachial Position Sitting Pulse 67 Pulse Source Pulse Oximeter Pulse Oximetry (%) 97 Oxygen Delivery Method Room Air Intake Visit Reasons: 3mnth follow up Intake Note: Patient presents follow up GRAYSON. Labs/PSG/Compliance in chart(48/49days, >=4hrs- 94%, Average Usage- 7hr 18min, Med Pressure-7.7, Med Leaks-2.8, AHI-2.6). Patient states her mask after a few minutes starts to leak. Avionics Systems Technician Required: Yes Avionics Systems Technician Language: Photographer Still Services: Avionics Systems Technician Offered & Declined Avionics Systems Technician Name: Daughter Information Interpreted: non-clinical & clinical Accompanied by: Daughter Allergies griseofulvin (From Candie-PEG (ultramicrosize)) Allergy (Intermediate, Verified 04/26/25 13:34) Rash octopus Allergy (Intermediate, Verified 04/26/25 13:34) Hives pregabalin (From Lyrica) Allergy (Intermediate, Verified 04/26/25 13:34) LEethargy, dizziness celecoxib (From Celebrex) Adverse Reaction (Intermediate, Verified 04/26/25 13:34) Problems with Liver dicyclomine Adverse Reaction (Mild, Verified 04/26/25 13:34) stomach upset oxycodone (From Percocet) Adverse Reaction (Mild, Verified 04/26/25 13:34) Lethargy morphine Adverse Reaction (Verified 04/26/25 13:34) Unknown MANDARIN ORANGES Allergy (Severe, Uncoded 04/03/25 15:10) Lip Swelling, Hives PARMELEX Allergy (Intermediate, Uncoded 04/03/25 15:10) Problems with Liver HPI Comments Details: 64 year old citizen of [place] speaking female with grayson on cpap therapy presents for f/u of titration study. Daughter Yael helps with history. Feb 2025 Titration study c/w 0 apneas, hypopneas obstructive. REM AHI of 13/Hr. O2 desaturation to 81% and <88% for 2.9min. 65 Frequent periodic limb movements with PLMS arousal index of 39/hr. GRAYSON Compliance report 10/2024 - 01/2025 Total hours used 90/90 and >=4hrs-99%, Avg usage- 7hr 26min. Med press-7.8cmH20, Med leaks-0.0, AHI-2.2/hr. She washes her mask, rinses her hoses, changes the filters and fills reservoir with water. She feels refreshed in the mornings with her continuous cpap use and since using her new mask Airfit F40. We reviewed the adjustments made and her titration study. The mask leaks have decreased, she likes the pressures and fit of her new mask, however says she may need nasal pillows, as she does not like anything touching the bridge of her nose. She has RLS/PLMS with neuropathy and paresthesias bilaterally in her feet, this wakes her up at night to stretch her feet. She has a moderate number of muscle cramps, and r. heel tendonitis and is being followed by podiatry. She continues to have frequent arousals due to period limb movements, gabapentin and Lyrica were both tried in the past and she was confused so discontinued use. She has pain due to fibromyalgia and r. hand CTS. She has headaches which start on top of her head and radiates to the neck with sensitivity to light and sounds. She has tinnitus in l. ear, and must change positions slowly. She denies, dizziness, vertigo, balance, gait, GERD, memory, mood, and or diet changes. She walks short distances as tolerable. [facility] Medical History Hematuria Furuncle of buttock Abdominal pain Postmenopausal Muscle cramps Physical exam Fibromyalgia Gastroparesis Midline thoracic back pain Epigastric pain Allergic rhinitis Ingrown toenail of right foot Small bowel obstruction Dyspnea on exertion Elevated AST (SGOT) Nausea RUQ pain H. pylori infection Obesity (BMI 30-39.9) Neuropathy Hearing loss Tendonitis Hyperlipidemia Carpal tunnel syndrome Arthritis Fibromyalgia GRAYSON (obstructive sleep apnea) Iron deficiency anemia Normocytic anemia Surgical History History of esophagogastroduodenoscopy (EGD) Hx of colonoscopy History of endoscopy History of laparoscopic cholecystectomy History of varicose vein stripping Family history of lipoma History of left breast biopsy History of History of temporal artery biopsy History of carpal tunnel repair Family History Father Heart disease Diabetes Hypertension Mother Diabetes Hypertension Arthritis Fibromyalgia Osteoporosis Sister Breast cancer Social History Household Members: Family Caregiver staying overnight: No Housing: Apartment Alcohol intake: never Patient Tobacco Use Status: Never used Tobacco e-Cigarette/Vaping Use: Never Used Second Hand Smoke Exposure: No service: No 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al status: disabled 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: rt 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 Cognitive needs: No Hearing needs: Yes Vision needs: Yes Review of Systems ENT Reports Normal hearing present (wears hearing aids bilaterally, however they fall out.) Neuro Reports Normal hearing present (wears hearing aids bilaterally, however they fall out.) Physical Exam Vital Signs: Last Vital Signs Pulse 67 04/26/25 13:28 BP 110/72 04/26/25 13:28 Pulse Ox 97 04/26/25 13:28 Oxygen Delivery Method Room Air 04/26/25 13:28 BMI result Body Mass Index 29.2 Const General: cooperative, healthy appearing, comfortable, no acute distress, well developed, alert and awake Nutritional Appearance: average body habitus Orientation/consciousness: patient oriented x3 Limitations: no limitations HEENT Head: Yes normal to inspection, Yes normocephalic and Yes atraumatic Ears: hearing grossly normal bilaterally Face and sinus: Yes face symmetric Teeth and gingiva: other (mallampti score is 3) Eyes General: appearance normal, both eyes and all related structures Pupils: Equal, round and reactive pupils present Neck Neck: Yes normal visual inspection and Yes trachea midline Chest Chest palpation & inspection: normal inspection of the chest Resp Effort & Inspection: normal respiratory effort and able to speak in complete sentences Cardio Rate: regular rate GI Inspection: Yes normal to inspection General: Yes no CVA tenderness Back/Spine/Pelvis Back: no CVA tenderness Skin General skin exam: no rashes or lesions noted Neuro General: patient oriented x3 and moves all extremities Cranial nerves: Yes Facial sensation intact/muscles of mastication intact, Yes Equal, round and reactive pupils present, Yes Normal facial strength present, Yes Midline tongue present, Yes Normal hearing present (wears hearing aids bilaterally, however they fall out.), Yes Ability to bilaterally rotate head present and Yes Ability to bilaterally elevate shoulders present (pain with shoulder shrug) Cognition (Neuro): normal cognition Gait exam (Neuro): Normal gait present Motor exam (neuro): Abnormal motor strength present and Abnormal muscle tone present Extrem General: Yes normal to inspection Psych Appearance: grossly normal and well kempt Mental Status: mental status grossly normal Speech and movement: Normal speech and movement present Affect: normal affect Attitude: cooperative Thought process: Normal thought process present Thought content: Normal thought content present Insight: Good insight present (Psych) Results Reviewed Results Reviewed: Feb 2025 Titration study c/w 0 apneas, hypopneas obstructive. REM AHI of 13/Hr. O2 desaturation to 81% and <88% for 2.9min. 65 Frequent periodic limb movements with PLMS arousal index of 39/hr. Assessment & Plan Assessment & Plan (1) GRAYSON on CPAP: Code(s): G47.33 - Obstructive sleep apnea (adult) (pediatric) Category: Medical (2) Iron deficiency anemia: Comment: PCP will manage Code(s): D50.9 - Iron deficiency anemia, unspecified Category: Medical Qualifiers: Iron deficiency anemia type: unspecified iron deficiency Qualified Code(s): D50.9 - Iron deficiency anemia, unspecified (3) RLS (restless legs syndrome): Code(s): G25.81 - Restless legs syndrome Category: Medical (4) Periodic limb movements of sleep: Code(s): G47.61 - Periodic limb movement disorder Category: Medical Plan Mild GRAYSON on cpap, will send for a mask fitting as bridge of nose is irritated. Continue Cpap use and > 4 hours a night as pt experienced good clinical outcomes with use. RLS / PLMD multiple arousals due to frequent limb movements. Continue Magnesium 1000mg po BID continue MATT will f/u with pcp, continue B12, Iron over the counter with OJ for absorption, Labs reviewed with pt today. Lyrica 25mg? and Gabapentin tried in past, she was confused and it was ineffective still having 65arousals w/ index of 15/hr. Will try her on Nidra for Periodic Limb Movement disorder with RLS and disrupted sleep. EPR pressures on initially leaking with Airfit F40 is continuously leaking. F/U in 3 months Medications: New [NIDRA RLS Device] As directed 2 ea 0RF Restless Legs Syndrome G25.81 - Restless legs syndrome, G47.61 - Periodic limb movement disorder Patient Instructions: Sleep Hygiene provided: set a scheduled bedtime and wake time to help regulate the circadian rhythm and balance the release of pituitary hormones. Sleep in a dark room, temperatures below 68 degrees, and no devices n bed. Limit caffeinated products 6 hours prior to bed, and limit fluids 2-4 hours prior to bed. Gentle night yoga, diffusing essential oils, and playing soft music can be relaxing. RLS / PLMD will write rx for NIDRA Nidra is a non-invasive wearable device worn around the leg that provides you with the same relief you get from walking around ? only it lasts longer, and you can sleep with it! ? Coding Level of Care Code Est Pt Level 4 (94051) Diagnoses GRAYSON on CPAP G47.33 Iron deficiency anemia, unspecified iron deficiency anemia type D50.9 Iron deficiency anemia type: unspecified iron deficiency RLS (restless legs syndrome) G25.81 Periodic limb movements of sleep G47.61
--- OUTSIDE RECORDS SUMMARY | 2025-04-26 19:22 | XMS_ITS | Data Portability ---
Author Organization [facility] - [facility], Allergy Address [address] [place] [address] Care Team Providers Care Home Advisor Name Role Phone SUNIL LA Primary Care Provider SUNIL LA Referring Provider SUNIL LA Primary Care Provider [phone] Assessment Encounter Date Assessment Date Assessment LastModified [...] cleaning and maintenance to prevent future otorrhea. [email or web address] Not available 11/29/2023 16:27:20 05/29/2024 05/29/2024 Left-sided [...] 1 %-0.05 % topical cream 2023 024 [id number], [address] [facility], [place], [address], 05/29/2024 13:38:28 ciproflox acin 750 mg tablet 2023 024 pavel Rafa [id number], [address] [facility], [place], [address], 11/29/2023 16:05:50 clotrimaz ole-betam ethasone 1 %-0.05 % topical cream 2023 024 DEEPTHI [id number], [address] [facility], [place], [address], 11/03/2023 12:17:27 Patient TargetsNo targets recorded. Patient [...] Recorded Time Dizzines s and giddines s 926670912 Active 2016 Dizzines s and giddines s; Note: Date Diagnose d: 7 12:36 PM (R42) Not Available [facility] 4 02:53:47 Otitis externa of bilatera l ears 33380175131 57549 Completed 201601/13/2024 Other otitis externa, bilatera l; Note: Date Diagnose d: 7 12:35 PM (H60.8X3 ) Not Available [facility] 4 02:53:47 Mixed 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, bilatera l 775282228 Active 2016 Mixed 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, bilatera l; Note: Date Diagnose d: 7 11:53 AM (H90.6) Not Available [facility] 4 02:53:43 Bilatera l disorder of Eustachi an tubes 66812499246 07285 Active 2016 Other specifie d disorder s of Eustachi an tube, bilatera l; Note: Date Diagnose d: 7 12:35 PM (H69.83) Not Available [facility] 4 02:53:45 Bilatera l earache 154959147 Active 2016 Otalgia, bilatera l; Note: Date Diagnose d: 04/12/20 17 3:29 PM (H92.03) Not Available [facility] 4 02:53:46 Nasal congesti on 97822304 Active 2016 Nasal congesti on; Note: Date Diagnose d: 04/12/20 17 3:28 PM (R09.81) Not Available [facility] 4 02:53:46 Eczema NOS Active 2016 Eczema NOS; Note: Date Diagnose d: 05/12/20 17 4:20 PM (L30.9) Not Available [facility] 4 02:53:42 Dysphagi a 99605231 Active 2016 Dysphagi a, unspecif ied; Note: Date Diagnose d: 05/12/20 17 4:27 PM (R13.10) Not Available [facility] 4 02:53:43 Chronic pharyngi tis 336583 Active 2016 Chronic sore throat; Note: Date Diagnose d: 05/12/20 17 4:24 PM (J31.2) Not Available [facility] 4 02:53:43 Headache 87692386 Active 2018 Facial pain NOS; Note: Date Diagnose d: 9 2:54 PM (R51) Not Available [facility] 4 02:53:44 Allergic rhinitis 38622683 Active 2018 Other allergic rhinitis ; Note: Date Diagnose d: 9 2:55 PM (J30.89) Not Available [facility] 4 02:53:47 Diffuse otitis externa 54380059 Active 2020 Diffuse otitis externa, left ear; Note: Date Diagnose d: 09/18/2020 3:45 PM (H60.312 ) Not Available [facility] 4 02:53:46 Bilatera l tympanic membrane central perforat ion 72972730886 00843 Active 2020 Central perforat ion of tympanic membrane , bilatera l; Note: Date Diagnose d: 1 3:12 PM (H72.02) Not Available [facility] 4 02:53:44 Otalgia of left ear 0222481405 Active 2020 Otalgia, left ear; Note: Date Diagnose d: 03/27/20 10:35 AM (H92.02) Not Available [facility] 4 02:53:44 Pain of left temporom andibula r joint 13601844780 264544 Active 2020 Arthralg ia of left temporom andibula r joint; Note: Date Diagnose d: 03/27/20 10:35 AM (M26.622 ) Not Available [facility] 4 02:53:45 Otalgia 64603809 Active 2020 Otalgia; Note: Date Diagnose d: 10/15/20 21 10:33 AM (388.70) Not Available [facility] 4 02:53:44 Impacted cerumen of bilatera l ears 89782051780 15559 Active 2022 Impacted cerumen, bilatera l; Note: Date Diagnose d: 3 3:33 PM (H61.23) Not Available [facility] 4 02:53:48 Otorrhea of left ear 53302570642 10692 Active 2023 Otorrhea , left ear; Note: Date Diagnose d: 09/14/2023 3:39 PM (H92.12) Not Available [facility] 4 02:53:47 Acute infectiv e otitis externa 988280582 Active 2023 Luca acosta, [place] - [facility] 4 12:08:57 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 [place]a [place], [place] - [facility] 4 12:09:27 Chronic mycotic otitis externa 877879709 Active 2023 Luca acosta, [place] - [facility] 4 12:09:27 Candidal otitis externa 26697204 Active 2023 Luca ac[place], [place] - [facility] 4 12:09:27 Bilatera l perforat ion of tympanic membrane s 42314881288 09995 Active 2023 Luca acosta, [place] - [facility] 4 12:10:39 Cellulit is of face 111889176 Active 2023 KUSUM BARTLETT PA-C [address] [place] [address],[place] [address], [facility] [place] [place], [address] , [facility] - [facility] 4 13:49:33 Problem Notes None recorded. Procedures Surgical History Date Name Laterality Status Provider Name and Address Organization Details Recorded Time 02/02/20 25 Cerumen removal with microscope bilateral completed Tobin Escoto, [address] [place] [address],[address], [address], [facility] - [facility] 02/01/2025 08:52:02 05/29/20 24 Cerumen removal with microscope bilateral completed RAYNA GAY MD [address] [facility],[address], [address], [facility] - [facility] 05/29/2024 13:41:27 11/11/19 24 Cerumen removal without microscope right completed KUSUM BARTLETT PA-C [address] [facility],[address], [address], [facility] - [facility] 11/11/2023 13:46:54 Carpal tunnel surgery completed Sunil Bermeo [facility] 11/03/2023 11:50:12 cholecystectomy completed Sunil Bermeo [facility] 11/03/2023 11:50:21 Imaging Results None recorded. Procedure Notes None recorded. Medical Equipment None Reported. Allergies Allergen ID Allergen Name Allergen Category Reaction Reaction Severity Criticality Documentation Date Start Date Code Code System Note Provider Name and Address Organization Details Recorded Time 74651 celecoxib medicatio n other Not available Not available 10/25/2023 80567 7 RxNorm React ion: unkno wn, unspe cifie d;; Not Available [facility] 4 00:49:36 54610 pregabali n medicatio n other Not available Not available 10/25/2023 64412 2 RxNorm React ion: unkno wn, unspe cifie d;; Not Available [facility] 4 00:49:49 Medications Name Sig Start Date Stop Date Status Note LastModified by Organization Details LastModified Time amoxicill in 500 mg capsule TOME 1 C PSULA ORALLY EVERY 12 HOURS FOR 7 DAYS 11/28 completed Not Available Not Available Not Available neomycin- polymyxin -hydrocor t 3.5 mg/mL-10, 000 unit/mL-1 % ear solution 01/10 completed Medicati on ID: [id number] D uration Value: 10 Reason: () Brand [...] mg capsule 01/10 completed Medicati on ID: 738969 D uration Value: 30 Reason: () Brand [...] mg tablet 2016 active Medicati on ID: 966448 D uration Value: 30 Brand Name: Senna [...] affected area 2016 active Medicati on ID: 458649 D uration Value: 14 Prescri bed By [...] mg tablet 01/10 completed Medicati on ID: 678430 D uration Value: 30 Reason: () Brand Name: Fiber Laxative (ca polycarb o) Send Method: E-Prescr ibed Sub s Allowed: subs OK Speci al Instruct ion: TAKE 1-2 CAPSULES TWICE A DAY ORALLY 30 DAYS Med icationG enericNa me: Fiber Laxative (ca polycarb o) Not Available Not Available Not Available sumatript an 25 mg tablet 2018 active Medicati on ID: 881329 D uration Value: 30 Brand Name: sumatrip [...] mg tablet 01/10 completed Medicati on ID: 552527 D uration Value: 9 Reason: () Brand [...] twice a day active Medicati on ID: 876922 D uration Value: 10 Prescri bed By Name: SESAR Deluca nd Name: ofloxaci n Send Method: E-Prescr ibed Sub s Allowed: subs OK Medic ationGen ericName : ofloxaci n Not Available Not Available Not Available Gas Relief (simethic one) 125 mg capsule 01/10 completed Medicati on ID: 680782 D uration Value: 30 Reason: () Brand Name: Gas Relief S end Method: E-Prescr ibed Sub s Allowed: subs OK Speci al Instruct ion: TOME FATMATA CAPSULA POR VIA ORAL DOS VECES AL CAT CUANDO SEA NECESARI O Medica tionGene ricName: Gas Relief Not Available Not Available Not Available Vitamin C 1,000 mg tablet 2016 active Medicati on ID: 260857 D uration Value: 30 Brand Name: Vitamin [...] mg tablet 02/01 completed Medicati on ID: 145106 B rand Name: baclofen Send Method: E-Prescr ibed Sub s Allowed: subs OK Speci al Instruct ion: TOME FATMATA TABLETA POR V A ORAL CADA OCHO HORAS PARA EL ESPASMO MUSCULAR CUANDO SEA NECESARI O Medica tionGene ricName: baclofen Not Available Not Available Not Available benzonata te 100 mg capsule 01/10 completed Medicati on ID: 277413 D uration Value: 10 Reason: () Brand Name: benzonat ate Send Method: E-Prescr ibed Sub s Allowed: subs OK Medic ationGen ericName : benzonat ate Not Available Not Available Not Available gemfibroz il 600 mg tablet 2018 active Medicati on ID: 967774 D uration Value: 30 Brand Name: gemfibro [...] iron) tablet 2020 active Medicati on ID: 846372 B rand Name: ferrous sulfate Send Method: [...] eye drops 01/10 completed Medicati on ID: 225502 D uration Value: 10 Reason: () Brand [...] solution Apply 11/02 completed Medicati on ID: 009321 D uration Value: 14 Prescri bed By Name: SESAR Roman nd Name: clotrima zole Sen d Method: E-Prescr ibed Sub s Allowed: subs OK Speci al Instruct ion: 4 drops to both ears BID x 2 weeks Me dication GenericN luciano: clotrima zole Med ication ID: [id number] D uration Value: 14 Prescri bed By [...] mg capsule 2016 active Medicati on ID: 718755 D uration Value: 30 Brand Name: gabapent in Send Method: E-Prescr ibed Sub s Allowed: subs OK Speci al Instruct ion: TOME FATMATA CAPSULA TODOS LOS BAKER Med icationG enericNa me: gabapent in Not Available Not Available Not Available omeprazol e 20 mg capsule,d elayed release 2016 active Medicati on ID: 351197 D uration Value: 30 Brand Name: omeprazo [...] unit) capsule 2016 active Medicati on ID: 073887 D uration Value: 30 Brand Name: Vitamin [...] as directed 2021 active Medicati on ID: 601129 D uration Value: 14 Brand Name: Ciprodex Send Method: E-Prescr ibed Sub s Allowed: subs OK Speci al Instruct ion: x 14 days Med icationG enericNa me: Ciprodex Not Available Not Available Not Available rosuvasta tin 20 mg tablet 01/10 completed Medicati on ID: 651225 D uration Value: 30 Reason: () Brand Name: rosuvast atin Sen d Method: E-Prescr ibed Sub s Allowed: subs OK Speci al Instruct ion: TOME FATMATA TABLETA TODOS [place] BAKER [facility]: rosuvast atin Not Available Not Available Not Available cranberry extract 500 mg capsule 2016 active Medicati on ID: 268887 D uration Value: 30 Brand Name: cranberr y extract Send Method: E-Prescr ibed Sub s Allowed: subs OK Speci al Instruct ion: TOME FATMATA CAPSULA POR VIA ORAL TODOS LOS BAKER SCOTT LO INDICADO Medicat ionGener icName: cranberr y extract Not Available Not Available Not Available Fiber Therapy (methylce llulose) 500 mg tablet 01/10 completed Medicati on ID: 655455 D uration Value: 30 Reason: () Brand [...] elayed release 01/10 completed Medicati on ID: 370471 D uration Value: 30 Reason: () Brand Name: duloxeti ne Send Method: E-Prescr ibed Sub s Allowed: subs OK Speci al Instruct ion: TOME FATMATA CAPSULA POR VIA ORAL TODOS LOS BAKER Med icationG enericNa me: duloxeti ne Not Available Not Available Not Available ProAir HFA 90 mcg/actua tion aerosol inhaler 2 puff 2018 active Medicati on ID: 230355 D uration Value: 30 Brand Name: ProAir [...] aerosol spray 2018 active Medicati on ID: 417643 D uration Value: 30 Brand Name: QNASL [...] both nostrils 2018 active Medicati on ID: 263123 D uration Value: 120 Prescri bed By Name: Reynaldo barger MD Brand Name: Flonase Allergy Relief S end Method: E-Prescr ibed Sub s Allowed: subs OK Medic ationGen ericName : Flonase Allergy Relief Not Available Not Available Not Available Trulance 3 mg tablet 2018 active Medicati on ID: 369372 D uration Value: 30 Brand Name: Trulance [...] Updated DateTime 11/11/2023 154.94 cm 28.2 kg/m2 29107.26 g Sunil Bermeo [place] - [facility] 11/11/2023 13:07:26 Date Recorded Body height Body mass index (BMI) Body weight Provider Name and Address Organization Details Last Updated DateTime 02/01/2025 154.94 cm 29.7 kg/m2 18934 g LISBET HORN [facility] 02/01/2025 10:28:17 Date Recorded Body height Body mass index (BMI) Body weight Provider Name and Address Organization Details Last Updated DateTime 05/29/2024 154.94 cm 28.3 kg/m2 11732.86 g Norm Burgess [facility] 05/29/2024 13:30:36 Social History None recorded. [...] Note [id number] LUCA VARGAS PA-C [facility] [address] [address] 11/03/2023 11:38:00 11/03/2023 12:34:18 Chronic mycotic otitis externa 453714884 H60.399 Previously found to be fungal via culture Bilateral perforation of tympanic membranes 1152817530 330055 H72.93 [id number] KUSUM BARTLETT PA-C [facility] [address] [place] [address] 11/11/2023 12:58:21 11/11/2023 13:33:03 Bilateral disorder of Eustachian tubes 0342191567 453191 H69.83 Bilateral perforation of tympanic membranes 9130881196 266781 H72.93 Cellulitis of face 2001 L03.211 [id number] RAYNA GAY MD [facility] [address] [address] 11/29/2023 15:24:29 11/29/2023 16:27:24 Bilateral disorder of Eustachian tubes 3339998983 993807 H69.83 Bilateral tympanic membrane central perforation 1755965684 697058 H72.03 Mixed cond uctive and sensorineural hearing loss, bilateral 083397021 H90.6 [id number] RAYNA GAY MD [facility] [address] [address] 05/29/2024 13:13:55 05/29/2024 13:43:03 Bilateral disorder of Eustachian tubes 2700265777 118039 H69.83 Bilateral tympanic membrane central perforation 9613520022 876835 H72.03 Mixed cond uctive and sensorineural hearing loss, bilateral 902695990 H90.6 Dermal mycosis 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 Impacted c erumen of bilateral ears 3111066817 092992 H61.23 [id number] Tobin Escoto DO [facility] [address] [address] 02/01/2025 10:12:35 02/01/2025 10:52:35 Bilateral disorder of Eustachian tubes 9361092021 608739 H69.83 Bilateral tympanic membrane central perforation 7940014806 748963 H72.03 Mixed cond uctive and sensorineural hearing loss, bilateral 759662101 H90.6 Dermal mycosis 54083940 B36.9 Impacted c erumen of bilateral ears 2064655104 818991 H61.23 Health Concerns Section Related Observation LastModified by Organization Detai ls LastModified Time None Recorded Concern Status LastModified by Organization Details LastModified Time None Recorded Advance Directives Directive None Recorded Payers Insurance Date Sequence Insurance Name Policy Number Policy Munguia Covered Member ID Munguia Member ID Guarantor Name 01/22/2025 1 [facility] - HEALTH NET PLAN (MEDICAID HMO) [place] Raquel Garsia [id number] Raquel Duque 03/15/2025 1 [facility] - DUAL ELIGIBLE (MEDICARE REPLACEMENT/A DVANTAGE - HMO) Raquel Duque [id number] Raquel Duque 03/15/2025 1 [facility] - DOS ON OR AFTER 2022 - MEDICARE ADVANTAGE [place] (MEDICARE REPLACEMENT/A DVANTAGE - PPO) Raquel Duque [id number] Raquel Duque 03/15/2025 1 [facility] (MEDICARE REPLACEMENT/A DVANTAGE - HMO) Raquel Duque [id number] Raquel Duque 03/15/2025 2 [id number] Raquel Duque [id number] Raquel Duque Notes Date Note Type Note Provider Name and Address Organization Details Recorded Time 11/03/2023 text/html ROS as noted in the HPI 62 year old female presents with family member, who provides interpretation services and family declined professional program project analyst, for evaluation of the left ear. Patient [...] [place] - [facility] 11/03/2023 15:33:16 11/11/2023 text/html ROS as noted [...] behind the ear. TOBIN GODOY MD [address] [facility],[address], [address], [facility] - [facility] 11/11/2023 17:21:42 11/29/2023 text/html 63-year-old female with chronic history of ear disease who has been a patient in the office since 2017. She comes in today accompanied by her daughter who is helping to translate Rw[place]an. Patient recently had prolonged episode of left-sided otorrhea which was treated with a combination of antifungal and antibacterial's. Patient notes no further left-sided ear discharge. Patient did have some bleeding during treatment of the left ear which has since resolved. Patient currently using binaural amplification dispensed at [facility] audiology. She has bilateral mixed hearing loss. RAYNA GAY MD [address] [facility],[address], [address], [facility] 11/29/2023 17:21:59 05/29/2024 text/html 63-year-old female with [...] her daughter who is helping to translate R[place]andan. Patient currently using binaural amplification dispensed at [facility] audiology. She has bilateral mixed hearing loss. Patient comes in today for preventative ear cleaning. Patient comes in today accompanied by her daughter. She is helping to translate [place]an. Patient reports itchiness in her ears. RAYNA GAY MD [address] [facility],[address], [address], [facility] - [facility] 05/29/2024 13:42:11 02/01/2025 text/html ROS as noted [...] her daughter who is helping to translate [place]an. Patient currently using binaural amplification dispensed at [facility] audiology Tobin Escoto, DO [address] [facility],[place] [address], [place], [address], [facility] - [facility] 02/01/2025 10:47:43 OBGyn Episode No OBEpisode recorded.
--- OUTSIDE RECORDS SUMMARY | 2025-04-26 19:23 | XMS_ITS | Continuity of Care Document ---
Author Organization [facility] - [facility], [facility] Address [address] [place] [address] Care Team Providers Care Car Dumper Operator Helper Name Role Phone SUNIL LA Primary Care Provider [phone] SUNIL LA Referring Provider SUNIL LA Primary Care Provider Assessment Encounter Date Assessment Date Assessment LastModified by Organization Details LastModified Time 02/01/2025 02/01/2025 There is a 5% perforation [...] Details Appointments Establish ed 15 2025 02:15P M ESPERANZA SINGH PA-C Not available Not available Not available Lab None recorded. Referral None recorded. Procedures None recorded. Surgeries None recorded. Imaging None recorded. Medication Orders None recorded. Patient TargetsNo targets recorded. Patient InstructionsNo instructions recorded. Reason for Referral None Reported. Problems Name Problem SNOMED Code Status Onset Date Resolution Date Notes Provider Name and Address Organization Details Recorded Time Dizzines s [facility] giddines s 696759052 Active 2016 [facility] [employer] gidd[facility]; Note: Date Diagnose d: 3/28/201 7 12:36 PM (R42) Not Available [facility] 4 02:53:47 Otitis externa of bilatera l ears [id number] 74929 Completed 201601/13/2024 Other otitis externa, bilatera l; Note: Date Diagnose d: 7 12:35 PM (H60.8X3 ) Not Available [facility] 4 02:53:47 Mixed 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, bilatera l 063352297 Active 2016 Mixed 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, bilatera l; Note: Date Diagnose d: 7 11:53 AM (H90.6) Not Available [facility] 4 02:53:43 Bilatera l disorder of Eustachi an tubes 73641704060 35101 Active 2016 Other specifie d disorder s of Eustachi an tube, bilatera l; Note: Date Diagnose d: 7 12:35 PM (H69.83) Not Available [facility] 4 02:53:45 Bilatera l earache 219377726 Active 2016 Otalgia, bilatera l; Note: Date Diagnose d: 04/12/20 17 3:29 PM (H92.03) Not Available [facility] 4 02:53:46 Nasal congesti on 21751105 Active 2016 Nasal congesti on; Note: Date Diagnose d: 04/12/20 17 3:28 PM (R09.81) Not Available [facility] 4 02:53:46 Eczema NOS Active 2016 Eczema NOS; Note: Date Diagnose d: 05/12/20 17 4:20 PM (L30.9) Not Available [facility] 4 02:53:42 Dysphagi a 95301294 Active 2016 Dysphagi a, unspecif ied; Note: Date Diagnose d: 05/12/20 17 4:27 PM (R13.10) Not Available [facility] 4 02:53:43 Chronic pharyngi tis 606559 Active 2016 Chronic sore throat; Note: Date Diagnose d: 05/12/20 17 4:24 PM (J31.2) Not Available [facility] 4 02:53:43 Headache 04895963 Active 2018 Facial pain NOS; Note: Date Diagnose d: 9 2:54 PM (R51) Not Available [facility] 4 02:53:44 Allergic rhinitis 03806572 Active 2018 Other allergic rhinitis ; Note: Date Diagnose d: 9 2:55 PM (J30.89) Not Available [facility] 4 02:53:47 Diffuse otitis externa 07846846 Active 2020 Diffuse otitis externa, left ear; Note: Date Diagnose d: 09/18/2020 3:45 PM (H60.312 ) Not Available [facility] 4 02:53:46 Bilatera l tympanic membrane central perforat ion 62177729740 55390 Active 2020 Central perforat ion of tympanic membrane , bilatera l; Note: Date Diagnose d: 1 3:12 PM (H72.02) Not Available [facility] 4 02:53:44 Otalgia of left ear 0972662688 Active 2020 Otalgia, left ear; Note: Date Diagnose d: 03/27/20 10:35 AM (H92.02) Not Available [facility] 4 02:53:44 Pain of left temporom andibula r joint 57827106259 809234 Active 2020 Arthralg ia of left temporom andibula r joint; Note: Date Diagnose d: 03/27/20 10:35 AM (M26.622 ) Not Available [facility] 4 02:53:45 Otalgia 46359913 Active 2020 Otalgia; Note: Date Diagnose d: 03/27/20 10:33 AM (388.70) Not Available [facility] 4 02:53:44 Impacted cerumen of bilatera l ears 91760211376 07009 Active 2022 Impacted cerumen, bilatera l; Note: Date Diagnose d: 3 3:33 PM (H61.23) Not Available [facility] 4 02:53:48 Otorrhea of left ear 69037797973 98844 Active 2023 Otorrhea , left ear; Note: Date Diagnose d: 09/14/2023 3:39 PM (H92.12) Not Available [facility] 4 02:53:47 Acute infectiv e otitis externa 998993021 Active 2023 Vickie Poli null, MD - [facility] 4 12:08:57 Dermal mycosis 46833075 Active 2023 Vickiepradip Ashton null, MD - [facility] 4 12:09:27 Chronic mycotic otitis externa 920306276 Active 2023 Vickiepradip Ashton null, MD - [facility] 4 12:09:27 Candidal otitis externa 99153270 Active 2023 Vickie [facility] null, MD - [facility] 4 12:09:27 Bilatera l perforat ion of tympanic membrane s 30123657153 13066 Active 2023 Vickie Ashtno null, MD - [facility] 4 12:10:39 Cellulit is of face 010724842 Active 2023 KUSUM BARTLETT PA-C [address] [place] [address], [id number] , [facility] - [facility] 4 13:49:33 Problem Notes None recorded. Procedures Surgical History Date Name Laterality Status Provider Name and Address Organization Details Recorded Time 02/02/20 25 Cerumen removal with microscope bilateral completed Tobin Escoto DO [address] [place] [address], [id number], [facility] - [facility] 02/01/2025 08:52:02 05/29/20 24 Cerumen removal with microscope bilateral completed RAYNA GAY MD [address] [place], [place] [address], [address], [place] - [facility] 05/29/2024 13:41:27 11/11/19 24 Cerumen removal without microscope right completed KUSUM BARTLETT PA-C [address] [facility] [address], [place], [address], [facility] - [facility] 11/11/2023 13:46:54 Carpal tunnel surgery completed Sunil Bermeo MD - [facility] 11/03/2023 11:50:12 cholecystectomy completed Sunil Bermeo [facility] 11/03/2023 11:50:21 Imaging Results None recorded. Procedure Notes None recorded. Medical Equipment None Reported. Allergies Allergen ID Allergen Name Allergen Category Reaction Reaction Severity Criticality Documentation Date Start Date Code Code System Note Provider Name and Address Organization Details Recorded Time 82454 celecoxib medicatio n other Not available Not available 10/25/2023 27997 7 RxNorm React ion: unkno wn, unspe cifie d;; Not Available [facility] 4 00:49:36 64368 pregabali n medicatio n other Not available Not available 10/25/2023 21023 2 RxNorm React ion: unkno wn, unspe cifie d;; Not Available [facility] 4 00:49:49 Medications Name Sig Start Date Stop Date Status Note LastModified by Organization Details LastModified Time amoxicill in 500 mg capsule TOME 1 C PSULA ORALLY EVERY 12 HOURS FOR 7 DAYS 11/28 completed Not Available Not Available Not Available neomycin- polymyxin -hydrocor t 3.5 mg/mL-10, 000 unit/mL-1 % ear solution 01/10 completed Medicati on ID: [id number] D uration Value: 10 Reason: () Brand [...] mg capsule 01/10 completed Medicati on ID: [id number] D uration Value: 30 Reason: () Brand [...] mg tablet 2016 active Medicati on ID: [id number] D uration Value: 30 Brand Name: Senna [...] affected area 2016 active Medicati on ID: [id number] D uration Value: 14 Prescri bed By Name: Reynaldo barger MD Brand Name: clotrima zole-bet amethjulio césaro ne Send Method: E-Prescr ibed Sub s Allowed: subs OK Speci al Instruct ion: Apply with finger to ear canal skin. Me dication GenericN luciano: clotrima zole-bet amethaso ne Not Available Not Available Not Available Fiber Laxative (calcium polycarbo hansel) 625 mg tablet 01/10 completed Medicati on ID: [id number] D uration Value: 30 Reason: () Brand Name: Fiber Laxative (ca polycarb o) Send Method: E-Prescr ibed Sub s Allowed: subs OK Speci al Instruct ion: TAKE 1-2 CAPSULES TWICE A DAY ORALLY 30 DAYS Med icationG enericNa me: Fiber Laxative (ca polycarb o) Not Available Not Available Not Available sumatript an 25 mg tablet 2018 active Medicati on ID: [id number] D uration Value: 30 Brand Name: pacheco moran succinat e Send Method: E-Prescr ibed Sub s Allowed: subs OK Medic ationGen ericName : sumatrip moran succinat e Not Available Not Available Not Available famotidin e 40 mg tablet TOME FATMATA TABLETA TODOS LOS D AL ACOSTARS E active Not Available Not Available No t Available prednison e 20 mg tablet 01/10 completed Medicati on ID: [id number] D uration Value: 9 Reason: () Brand [...] twice a day active Medicati on ID: [id number] D uration Value: 10 Prescri bed By Name: Vickie Ashton PA-C Bra nd Name: ofloxaci n Send Method: E-Prescr ibed Sub s Allowed: subs OK Medic ationGen ericName : ofloxaci n Not Available Not Available Not Available Gas Relief (simethic one) 125 mg capsule 01/10 completed Medicati on ID: [id number] D uration Value: 30 Reason: () Brand Name: Gas Relief S end Method: E-Prescr ibed Sub s Allowed: subs OK Speci al Instruct ion: TOME FATMATA CAPSULA POR VIA ORAL DOS VECES AL CAT CUANDO SEA NECESARI O Medica tionGene ricName: Gas Relief Not Available Not Available Not Available Vitamin C 1,000 mg tablet 2016 active Medicati on ID: [id number] D uration Value: 30 Brand Name: Vitamin [...] mg tablet 02/01 completed Medicati on ID: [id number] B rand Name: baclofen Send Method: E-Prescr ibed Sub s Allowed: subs OK Speci al Instruct ion: TOME FATMATA TABLETA POR V A ORAL CADA OCHO HORAS PARA EL ESPASMO MUSCULAR CUANDO SEA NECESARI O Medica tionGene ricName: baclofen Not Available Not Available Not Available benzonata te 100 mg capsule 01/10 completed Medicati on ID: [id number] D uration Value: 10 Reason: () Brand Name: benzonat ate Send Method: E-Prescr ibed Sub s Allowed: subs OK Medic ationGen ericName : benzonat ate Not Available Not Available Not Available gemfibroz il 600 mg tablet 2018 active Medicati on ID: [id number] D uration Value: 30 Brand Name: gemfibro [...] iron) tablet 2020 active Medicati on ID: [id number] B rand Name: ferrous sulfate Send Method: [...] eye drops 01/10 completed Medicati on ID: [id number] D uration Value: 10 Reason: () Brand [...] solution Apply 11/02 completed Medicati on ID: [id number] D uration Value: 14 Prescri bed By Name: SESAR Roman nd Name: clotrima sue appiah Method: E-Prescr ibed Sub s Allowed: subs OK Speci al Instruct ion: 4 drops to both ears BID x 2 weeks Me dication GenericN luciano: clotrima zole Med ication ID: [id number] D uration Value: 14 Prescri bed By [...] mg capsule 2016 active Medicati on ID: [id number] D uration Value: 30 Brand Name: gabapent in Send Method: E-Prescr ibed Sub s Allowed: subs OK Speci al Instruct ion: TOME FATMATA CAPSULA TODOS LOS BAKER Med icationG enericNa me: gabapent in Not Available Not Available Not Available omeprazol e 20 mg capsule,d elayed release 2016 active Medicati on ID: [id number] D uration Value: 30 Brand Name: omeprazo [...] unit) capsule 2016 active Medicati on ID: [id number] D uration Value: 30 Brand Name: Vitamin D3 Send Method: E-Prescr ibed Sub s Allowed: subs OK Speci al Instruct ion: ---NOT COVERED- --TOME FATMATA CAPSULA POR VIA ORAL TODOS LOS ABKER Med icationG enericNa me: Vitamin D3 Not Available Not Available Not Available Ciprodex 0.3 %-0.1 % ear drops,loyda pension Instill 4 drop into both ears twice a day as directed 2021 active Medicati on ID: [id number] D uration Value: 14 Brand Name: Ciprodex Send Method: E-Prescr ibed Sub s Allowed: subs OK Speci al Instruct ion: x 14 days Med icationG enericNa me: Ciprodex Not Available Not Available Not Available rosuvasta tin 20 mg tablet 01/10 completed Medicati on ID: [id number] D uration Value: 30 Reason: () Brand Name: rosuvast atin Sen d Method: E-Prescr ibed Sub s Allowed: subs OK Speci al Instruct ion: TOME FATMATA TABLETA TODOS LOS BAKER Med icationG enericNa me: rosuvast atin Not Available Not Available Not Available cranberry extract 500 mg capsule 2016 active Medicati on ID: [id number] D uration Value: 30 Brand Name: cranberr y extract Send Method: E-Prescr ibed Sub s Allowed: subs OK Speci al Instruct ion: TOME FATMATA CAPSULA POR VIA ORAL TODOS LOS BAKER SCOTT LO INDICADO Medicat ionGener icName: cranberr y extract Not Available Not Available Not Available Fiber Therapy (methylce llulose) 500 mg tablet 01/10 completed Medicati on ID: [id number] D uration Value: 30 Reason: () Brand [...] elayed release 01/10 completed Medicati on ID: [id number] D uration Value: 30 Reason: () Brand Name: duloxeti ne Send Method: E-Prescr ibed Sub s Allowed: subs OK Speci al Instruct ion: TOME FATMATA CAPSULA POR VIA ORAL TODOS LOS BAKER Med icationG enericNa me: duloxeti ne Not Available Not Available Not Available ProAir HFA 90 mcg/actua tion aerosol inhaler 2 puff 2018 active Medicati on ID: [id number] D uration Value: 30 Brand Name: ProAir [...] aerosol spray 2018 active Medicati on ID: [id number] D uration Value: 30 Brand Name: QNASL [...] both nostrils 2018 active Medicati on ID: [id number] D uration Value: 120 Prescri bed By Name: Reynaldo barger MD Brand Name: Flonase Allergy Relief S end Method: E-Prescr ibed Sub s Allowed: subs OK Medic ationGen ericName : Flonase Allergy Relief Not Available Not Available Not Available Trulance 3 mg tablet 2018 active Medicati on ID: [id number] D uration Value: 30 Brand Name: Trulance [...] Updated DateTime 02/01/2025 154.94 cm 29.7 kg/m2 58195 g LISBET HORN [place] - [facility] 02/01/2025 10:28:17 Social History None recorded. Functional Status None recorded. Mental Status None recorded. Family History Nothing Reported. Medical History No medical history recorded. Gynecological HistoryNo gynecological history recorded. Obstetrics History GPAL:G 0 P 0 0 0 0 Past Encounters Encounter ID Performer Location Encounter Start Date Encounter Closed Date Diagnosis/Indication Diagnosis SNOMED-CT Code Diagnosis ICD10 Code Diagnosis IMO Codes Diagnosis Note [id number] Tobin Escoto, DO [facility] [address] [address] 02/01/2025 10:12:35 02/01/2025 10:52:35 Bilateral disorder of Eustachian tubes 8003348404 344348 H69.83 Bilateral tympanic membrane central perforation 8618660766 982548 H72.03 Mixed cond uctive and sensorineural hearing loss, bilateral 971349953 H90.6 Dermal mycosis 21071790 B36.9 Impacted c erumen of bilateral ears 5345638863 038571 H61.23 Health Concerns Section Related Observation LastModified by Organization Detai ls LastModified Time None Recorded Concern Status LastModified by Organization Details LastModified Time None Recorded Payers Encounter Date Sequence Insurance Name Policy Number Policy Munguia Covered Member ID Munguia Member ID Guarantor Name 02/01/2025 1 [facility] - DOS ON OR AFTER 2022 - MEDICARE [place]VANTAGE [place] REPLACEMENT/ADV ANTAGE - PPO) Raquel Duque [id number] Raquel Duque Notes Date Note Type Note Provider Name and Address Organization Details Recorded Time 02/01/2025 text/html ROS as noted in the [...] her daughter who is helping to translate Swedish. Patient currently using binaural amplification dispensed at [facility] audiology Tobin Escoto, DO [address] [facility],[place] [address], [place], [address], [facility] - [facility] 02/01/2025 10:47:43 OBGyn Episode No OBEpisode recorded.
== END 2025-04-26 14:12 | disposition home or self-care (01) ==
LOC: HO.HSMS 13:13
PROVIDERS: PCP Internal Medicine; Visit Provider Physician Assistant Medical
DX: G47.33 Obstructive sleep apnea (adult) (pediatric) (principal); D50.9 Iron deficiency anemia, unspecified; G25.81 Restless legs syndrome; G47.61 Periodic limb movement disorder
CPT/HCPCS: 99214

== ENCOUNTER → 2025-04-26 13:12 | Outpatient (BNVA) | payer OTHER, SELFPAY | PROVIDERS: PCP Internal Medicine; Visit Provider Physician Assistant Medical | DX: G47.33 Obstructive sleep apnea (adult) (pediatric) (principal); D50.9 Iron deficiency anemia, unspecified; G25.81 Restless legs syndrome; G47.61 Periodic limb movement disorder | CPT/HCPCS: 99212 ==

== ENCOUNTER 2025-04-30 15:48 | Outpatient (AMB) | payer OTHER, SELFPAY ==
--- NOTE | 2025-04-30 16:32 | A.OFFPC_ITS ---
Vital Signs 04/30/25 16:33 Height 5 ft 1 in Weight 152 lb 2 oz BMI 28.7 BP 110/62 Blood Pressure Location Lt brachial Position Sitting Pulse 80 Pulse Source Pulse Oximeter Temp 97.0 F Temp Source Temporal Artery Scan Pulse Oximetry (%) 97 Oxygen Delivery Method Room Air Intake Visit Reasons: Araujo Pain Digital Computer Operator Required: Yes Digital Computer Operator Language: Environmental Sampler Name: ID: [id number] Allergies griseofulvin (From Candie-PEG (ultramicrosize)) Allergy (Intermediate, Verified 04/30/25 16:36) Rash octopus Allergy (Intermediate, Verified 04/30/25 16:36) Hives pregabalin (From Lyrica) Allergy (Intermediate, Verified 04/30/25 16:36) LEethargy, dizziness celecoxib (From Celebrex) Adverse Reaction (Intermediate, Verified 04/30/25 16:36) Problems with Liver dicyclomine Adverse Reaction (Mild, Verified 04/30/25 16:36) stomach upset oxycodone (From Percocet) Adverse Reaction (Mild, Verified 04/30/25 16:36) Lethargy morphine Adverse Reaction (Verified 04/30/25 16:36) Unknown MANDARIN ORANGES Allergy (Severe, Uncoded 04/30/25 16:36) Lip Swelling, Hives PARMELEX Allergy (Intermediate, Uncoded 04/30/25 16:36) Problems with Liver Medication List - Last Reconciled 04/30/25 by Ellie Marcos MD acetaminophen 1,000 mg PO BID PRN ascorbic acid (vitamin C) 1 g PO BID aspirin 81 mg PO DAILY betamethasone dipropionate 0.05% 0.05 appl topical DAILY cholecalciferol (vitamin D3) 1,250 mcg PO QWEEK 90 days coenzyme Q10 (H2Q CoQ10) 200 mg PO DAILY [cpap As directed] estradiol 0.01%(0.1mg/gram) (Estrace) 1 g vaginal 3XW 30 days lidocaine 5% 1 patch topical DAILY PRN loratadine 10 mg PO DAILY 90 days magnesium gluconate 1,000 mg PO BID [NIDRA RLS Device As directed] omega 2-dhw-sza-fish oil 1,000 (120-180) mg (Fish Oil) 1 cap PO DAILY tacrolimus 0.1% 0.1 appl topical DAILY Tobacco use date assessed: 04/30/25 Fall risk assessment: No Falls in past year Last assessed Fall Risk: 04/30/25 Dental Screening Dental Screen Date: 04/30/25 Did you have a dental visit in the last 12 months?: Yes Did you have a dental problem in the last 6 months where you did not have access to dental care?: No Was dental information given to patient?: Patient has dentist HPI HPI Comments History of Present Illness Details The patient is a 64-year-old female presenting for evaluation of left leg pain. She has been experiencing pain in her left leg for two months, which has recently become significantly more intense, rated at 9 out of 10, and it is now interfering with her sleep. The patient reports having had recent x-rays of her hip, ankles, knees, and shoulder but does not know the results. Review of the imaging revealed arthritis in the shoulder, mild osteoarthritis in the hip, and a medial proximal bony exostosis in the left leg. She denies any knee pain. [facility] Medical History Hematuria Furuncle of buttock Abdominal pain Postmenopausal Muscle cramps Physical exam Fibromyalgia Gastroparesis Midline thoracic back pain Epigastric pain Allergic rhinitis Ingrown toenail of right foot Small bowel obstruction Dyspnea on exertion Elevated AST (SGOT) Nausea RUQ pain H. pylori infection Obesity (BMI 30-39.9) Neuropathy Hearing loss Tendonitis Hyperlipidemia Carpal tunnel syndrome Arthritis Fibromyalgia GRAYSON (obstructive sleep apnea) Iron deficiency anemia Normocytic anemia Surgical History History of esophagogastroduodenoscopy (EGD) Hx of colonoscopy History of endoscopy History of laparoscopic cholecystectomy History of varicose vein stripping Family history of lipoma History of left breast biopsy History of History of temporal artery biopsy History of carpal tunnel repair Family History Father Heart disease Diabetes Hypertension Mother Diabetes Hypertension Arthritis Fibromyalgia Osteoporosis Sister Breast cancer Social History Household Members: Family Caregiver staying overnight: No Housing: Apartment Alcohol intake: never Patient Tobacco Use Status: Never used Tobacco e-Cigarette/Vaping Use: Never Used Second Hand Smoke Exposure: No service: No 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al status: disabled 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: rt 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 Cognitive needs: No Hearing needs: Yes Vision needs: Yes Questionnaire Thrive Questionnaire Date Thrive assessed: 10/01/24 I am a: Patient What is your living situation today?: I have a steady place to live Within the past 12 months, did the food you bought not last and you didn't have the money to get more?: Never true Within the past 12 months, did you worry whether your food would run out before you got money to buy more?: Never true Do you have trouble paying for medicines?: No Do you have trouble getting transportation to medical appointments?: No Do you have trouble paying your heating and electricity bill?: No Do you have trouble taking care of your child, family member or friend?: No Do you have trouble with day-to-day activities such as bathing, preparing meals, shopping, managing finances, etc.?: No Are you currently unemployed and looking for a job?: No Are you interested in more education?: No Please select the resources that you would like help with: None Currently or been in a relationship where the following occur: No concerns reported THRIVE Score: 0 SUMMER-7 AMB Questionnaire SUMMER-7 Date SUMMER - 7 assessed: 10/01/24 Source: Developed by Drs. Reynaldo Denson, Marcia Bennett, Lewis Sifuentes and colleagues, with an educational poonam from [employer]. Physical exam (Primary Care) Vital Signs: Last Vital Signs Temp 97.0 F 04/30/25 16:33 Pulse 80 04/30/25 16:33 BP 110/62 04/30/25 16:33 Pulse Ox 97 04/30/25 16:33 Oxygen Delivery Method Room Air 04/30/25 16:33 General: Well-appearing, alert, oriented ?3, in no acute distress. Cardiovascular: RRR, S1-S2 appreciated, no murmurs, rubs or gallops. Respiratory: Lungs clear to auscultation bilaterally, no wheezes, rales or rhonchi. Abdomen: Soft, nontender, nondistended. Normoactive bowel sounds. Lower extremities: No erythema, swelling noted. Varicose veins appreciated in left leg. No tenderness to palpation BMI result Body Mass Index 28.7 Tobacco/Smoking Status: Tobacco use Status Tobacco use date assessed 04/30/25 04/30/25 16:37 Patient Tobacco Use Status Never used Tobacco 04/30/25 16:37 e-Cigarette/Vaping Use Never Used 04/30/25 16:37 Thrive Assessment: Date of Thrive Assessment Date Thrive assessed 10/01/24 04/30/25 16:37 Currently or been in a relationship where the following occur: No concerns reported Coding Level of Care Code Est Pt Level 4 (38064) Diagnoses Pain in left tibia M89.8X6 Varicose veins of left lower leg I83.92 Assessment & Plan Assessment & Plan (1) Pain in left tibia: Code(s): M89.8X6 - Other specified disorders of bone, lower leg Category: Medical Plan: Patient presents with left leg pain that has been going on for 2 months, progressively worsening recently. Recent x-ray shows medial proximal bony exostosis which is bony overgrowth could be osteophytes associated with osteoarthritis. Unclear if this finding fully explains her symptoms. Pain may be related to underlying osteoarthritis. Given patient's multiple allergies to medications, will approach pain management with a lidocaine patch to apply once daily as needed for pain. (2) Varicose veins of left lower leg: Code(s): I83.92 - Asymptomatic varicose veins of left lower extremity Plan: Patient also has a history of varicose veins, noted on examination. Pain could also be aggravated due to varicose veins. Patient advised leg elevation, and compression stockings to try and see if it helps with her symptoms. She reports she has an appointment with her vascular doctor this week. She will follow up with them. Medications: New lidocaine 5% leave on most painful area for up to 12 hrs 1 patch topical DAILY PRN 30 ea 0RF pain
[2025-04-30 16:33] VITALS: BP 110/62; PULSE 80; TEMP 36.1; O2SAT 97; BMI 28.7
== END 2025-04-30 17:45 | disposition home or self-care (01) ==
LOC: HO.HMCH 15:48
PROVIDERS: PCP Internal Medicine; Visit Provider Student in an Organized Health Care Education/Training Program
DX: M89.8X6 Other specified disorders of bone, lower leg (principal); I83.92 Asymptomatic varicose veins of left lower extremity

== ENCOUNTER → 2025-04-30 15:48 | Outpatient (BNVA) | payer OTHER, SELFPAY | PROVIDERS: PCP Internal Medicine; Visit Provider Student in an Organized Health Care Education/Training Program | DX: M89.8X6 Other specified disorders of bone, lower leg (principal); I83.92 Asymptomatic varicose veins of left lower extremity | CPT/HCPCS: 99212 ==